=== PATIENT | female | born 1955 | race Caucasian/White ===

== ENCOUNTER → 2017-02-03 | Outpatient (CLI) | payer MEDICARE, OTHER ==
[~2017-02-03] MED LIST: ADDERALL; ALPR.25T; ALPR2TAB2 PO; AMPH30CA PO; AMPH30TA2 PO; ANTI-DEPRESSANT; AREDS PO; ASEN10TA9 SL; BIMA2.5D4 OP; BIOT1POW3; CALC-220 PO; CELE200C PO; CHRO1000 PO; CHRO1TAB8 PO; CITA20TA4 PO; CITA40TA19 PO; CLCX200C PO; CLIN-81 PO; CRB200T PO; DEXTROAMPHETAMINE PO; DIET25TA57 PO; DOXY100C42 PO; DOXY50CA2 PO; FOLI0.4T2 PO; GFN600TCR; GINK120C PO; GLUC1000 PO; GUANFACINE PO; LAMO100T65 PO; LEVO125T6 PO; LURA20TA PO; LURA40TA PO; LVT.05T PO; MELA1TAB16 PO; MELA1TAB20 PO; METO25TA PO; METR55GE TP; MTP25TSR PO; NATURE THROID PO; NF-CYM60C PO; NF-TYLARTH PO; NFBIOT1000 PO; NFTRIAZ.25; OMEG-11 PO; OXCA300T PO; OXYC-12 PO; OXYCARBAZEPINE PO; PALI6TAB; PROP10TA8 PO; SODI88SP5 NS; SPIR100T PO; SPIR25TA3 PO; TEMA30CA PO; TIMOLOL; TML25OP25 OP; TML5OP2.5 OU; TOPI100T2 PO; TOPI200T2 PO; TRAM50TA2 PO; TRIA0.253 PO; VILA1TAB PO; ZPR80C PO; [UNRECOGNIZED DRUG - CODE] PO; [UNRECOGNIZED DRUG - OTHER] PO; [UNRECOGNIZED DRUG - OTHER] PO
--- NOTE | 2017-02-03 16:20 | Diagnostic Imaging Report ---
EXAMINATION: Three views of the lumbar spine. INDICATION: Back pain. FINDINGS: There is a mild right convexity scoliosis of the lumbar spine. The alignment of the posterior spinal line is satisfactory. There is vertebral body height loss of [id number] degree at L3-L4 and L5-S1 levels. Multilevel small anterior osteophytes are noted. Degenerative sclerotic changes are suggested in the lower facet joints as well. There are degenerative sclerotic changes also at the SI joints. There is a 1.3 cm calcification seen in the left flank which could be in the left renal pelvis. IMPRESSION: 1. Mild right convexity scoliosis and disc and facet degenerative changes seen in the lumbar spine. 2. A 1.3 cm left flank calcification could be in the left renal pelvis. Correlate clinically and with kidney stone protocol CT. Dictated by: Dictated on workstation # [id number]
--- NOTE | 2017-02-03 19:33 | Diagnostic Imaging Report ---
EXAMINATION: Three views of the thoracic spine. INDICATION: Back pain. FINDINGS: The alignment at the posterior spinal line is satisfactory. Multilevel anterior osteophytes are seen. The disc heights are preserved. No compression fracture is seen. The paraspinal soft tissues appear unremarkable. IMPRESSION: Multilevel anterior osteophytes in the thoracic spine seen. Dictated by: Dictated on workstation # [id number]
== END ==
LOC: RAD 15:38
PROVIDERS: ATTEND Nurse Practitioner Family
DX: M25.78 Osteophyte, vertebrae (principal); M54.6 Pain in thoracic spine; M54.5 Low back pain; G89.29 Other chronic pain
CPT/HCPCS: 72072; 72100

== ENCOUNTER → 2017-05-24 | Outpatient (CLI) | payer MEDICARE, OTHER ==
--- NOTE | 2017-05-24 12:50 | Diagnostic Imaging Report ---
EXAMINATION: Right lower extremity duplex venous ultrasound. TECHNIQUE: DVT protocol. Multiple sonographic images with color Doppler and waveform interrogation were performed of the right lower extremity veins with compression and augmentation maneuvers. INDICATION: Right leg pain. FINDINGS: The right lower extremity veins from the groin to below the knee veins were examined with normal color-flow, compressibility and normal waveform demonstrated. The great saphenous vein is patent. IMPRESSION: No evidence of DVT in the right lower extremity. Dictated by: Dictated on workstation # [id number]
== END ==
LOC: RAD 12:20
PROVIDERS: ATTEND Nurse Practitioner Family
DX: M79.661 Pain in right lower leg (principal)

== ENCOUNTER → 2017-06-01 | Outpatient (CLI) | payer MEDICARE, OTHER ==
--- NOTE | 2017-06-01 19:13 | Diagnostic Imaging Report ---
Three views of the right foot. INDICATION: Fall. FINDINGS: There is no fracture, dislocation or radiopaque foreign body. There is satisfactory alignment of the lumbar spine. Prominent degenerative changes around the tarsal bones and tarsal metatarsal joints is seen. No radiopaque foreign body is noted. IMPRESSION: Degenerative changes. No fracture seen. Dictated by: Dictated on workstation # [id number]
--- NOTE | 2017-06-01 19:18 | Diagnostic Imaging Report ---
Three views of the right ankle. INDICATION: Fall. FINDINGS: No fracture, dislocation or radiopaque foreign body. Ankle mortise is normal in configuration. There are from prominent calcaneal spurs and spurs projecting dorsally from the tarsal bones seen. IMPRESSION: No fracture seen. Dictated by: Dictated on workstation # [id number]
== END ==
LOC: RAD 16:32
PROVIDERS: ATTEND Nurse Practitioner Family
DX: M19.071 Primary osteoarthritis, right ankle and foot (principal)
CPT/HCPCS: 73610; 73630

== ENCOUNTER → 2017-07-05 | Outpatient (CLI) | payer MEDICARE ==
--- NOTE | 2017-07-05 17:18 | Diagnostic Imaging Report ---
PROCEDURE: MRI right joint lower extremity without contrast. TECHNIQUE: Multiplanar, multisequence non contrast-enhanced MRI of the right lower extremity was accomplished. INDICATION: Right knee pain. FINDINGS: Please note that there are limitations to this exam due to the large patient body habitus and the dedicated knee coil was not used. There is significant marrow edema seen within the tibial plateau medially and laterally and within the femoral condyles more on the medial aspect. There is also bone marrow edema within the proximal fibula. A depression seen within the lateral tibial plateau laterally. This is uncertain if it represents a subacute fracture or potentially an old fracture with superimposed marrow edema from degenerative changes. Plain radiographs and CT scan would be helpful. There is significant subchondral component of the edema and the tibial plateau particularly medially which is suggestive of degenerative etiology. Near complete loss of cartilage in the medial compartment and significant thinning of the cartilage in the lateral compartment is seen. There is a small joint effusion. There is edema anterior to the proximal aspect of the patellar tendon which demonstrates thickening and increased signal suggestive of tendinosis. There is also suggestion of tendinosis in the distal quadriceps tendon is seen. There is a poor definition of the ACL suggestive of an ACL tear. It is difficult to determine if this is acute or chronic based on this exam in part due to the poor resolution of the imaging. There is a complex tear involving the posterior horn of the medial meniscus and suggestion of extrusion of the medial meniscus as well. The lateral meniscus demonstrates increased signal probably degenerative with no obvious tear. The lateral collateral ligament complex appears grossly intact. The MCL demonstrates edema around it suggestive of a sprain. There is a ganglion cyst or a parameniscal cyst seen deep to the anterior aspect of the MCL distally measuring 2 x 1.5 x 2.3 cm craniocaudally. There is no Hudson's cyst. IMPRESSION: 1. There is significant marrow edema in the tibial plateaus and femoral condyles more laterally. Although certainly there is a degenerative edema component, superimposed bone contusions is possible. 2. There is also deformity with depression of the articular surface in the tibial plateau suggested laterally compatible with age indeterminate depressed fracture of the tibial plateau. Correlate with radiographs and CT scan of the right knee as needed. 3. Advanced osteoarthritis changes with near complete loss of cartilage in the medial compartment. 4. Complex tear involving the posterior horn of the medial meniscus. 5. MCL low-grade sprain. 6. Septated ganglion cyst or parameniscal cyst is noted deep to the anterior distal fibers of the MCL. Results faxed to James Fontana APRN at 5:18 p.m. 07/05/2017/cb Dictated by: Dictated on workstation # [id number]
== END ==
LOC: RAD 15:10
PROVIDERS: ATTEND Nurse Practitioner Family
DX: S83.231A Complex tear of medial meniscus, current injury, right knee, initial encounter (principal); S83.411A Sprain of medial collateral ligament of right knee, initial encounter; M67.461 Ganglion, right knee; M17.11 Unilateral primary osteoarthritis, right knee; R60.0 Localized edema
CPT/HCPCS: 73721

== ENCOUNTER → 2017-09-20 | Outpatient (CLI) | payer MEDICARE ==
[~2017-09-20] MED LIST changes: +GADOBUTROL 15 MMOL/15 ML (GADAVIST) VIAL IV ONE
--- NOTE | 2017-09-20 15:00 | Diagnostic Imaging Report ---
PROCEDURE: MR imaging of the brain with and without contrast. TECHNIQUE: Multiplanar, multisequence MR imaging of the brain was performed with and without contrast. INDICATION: Tremors. Dizziness. COMPARISON: None. FINDINGS: Minimal nonspecific T2 hyperintensities in the supratentorial white matter. No other abnormal intracranial signal, enhancement, restricted water diffusion or hemosiderin deposition. Mild generalized cerebral and cerebellar parenchymal volume loss is age appropriate. Postoperative changes in the globes. Incidental partially empty sella. Normal morphology of the major midline structures, posterior fossa and cerebellar pontine angle. Normal intracranial flow voids. No hydrocephalus or extra-axial fluid collections. The paranasal sinuses and mastoids are clear. Normal bone marrow signal. IMPRESSION: Age-appropriate MRI of the brain. No acute intracranial MRI findings. Dictated by: Dictated on workstation # [id number]
== END ==
LOC: RAD 12:35
DX: M62.81 Muscle weakness (generalized) (principal); R25.1 Tremor, unspecified; R42 Dizziness and giddiness
CPT/HCPCS: 70553

== ENCOUNTER → 2017-10-04 | Outpatient (CLI) | payer MEDICARE ==
[~2017-10-04] MED LIST changes: -GADOBUTROL 15 MMOL/15 ML (GADAVIST) VIAL IV ONE
--- NOTE | 2017-10-04 15:26 | Diagnostic Imaging Report ---
INDICATION: Chronic neck pain. TIME OF EXAM: 02:52 p.m. FINDINGS: Three views of the cervical spine were obtained. Curvature and alignment is normal. There is a small ununited osteophyte anteriorly at the C5-C6 level. Disc spaces are fairly well maintained. The prevertebral tissues are within normal limits. The odontoid is intact. IMPRESSION: No acute bony abnormality is detected. Dictated by: Dictated on workstation # [id number]
--- NOTE | 2017-10-04 15:45 | Diagnostic Imaging Report ---
INDICATION: Kyphosis. TIME OF EXAMINATION: 3:13 PM. TECHNIQUE: AP views of the thoracic and lumbar spine were performed. FINDINGS: There appears to be very slight left convexity scoliotic curvature of the thoracic spine. There is very slight right convexity lumbar scoliotic curvature. No vertebral body anomaly is identified. There is significant degenerative disc disease in the lower thoracic spine as well as the lower lumbar spine. The vertebral body heights appear maintained. The pedicles are unremarkable. The paraspinous line is unremarkable. There are calcific densities noted in the right and left abdomen. These do overlie the renal shadows and may represent renal calculi. The left calculus appears similar to prior radiographs from 02/03/2017. This may be located in the left renal pelvis. A calcific density on the right overlies the mid right kidney. IMPRESSION: 1. Thoracolumbar scoliosis and spondylosis. No acute bony abnormality is detected. 2. Probable bilateral renal calculi. Dictated by: Dictated on workstation # [id number]
== END ==
LOC: RAD 13:52
DX: M47.815 Spondylosis without myelopathy or radiculopathy, thoracolumbar region (principal); M41.85 Other forms of scoliosis, thoracolumbar region; N20.0 Calculus of kidney
CPT/HCPCS: 72040; 72081

== ENCOUNTER 2017-12-22 14:00 | Outpatient (CLI) | payer MEDICARE ==
[~2017-12-22] VITALS: Ht 165.1 cm; Wt 122.0 kg
[2017-12-22] MEDS ORDERED: NALT1TAB PO (14:44)
[2017-12-22] MEDS ORDERED: OXCA300T PO (14:44)
[2017-12-22] MEDS ORDERED: ALPR1TAB7 PO (14:44)
[2017-12-22] MEDS ORDERED: DORZ10DR8 OU (14:44)
[2017-12-22] MEDS ORDERED: AMPH30TA2 PO ×2 (14:44→14:47)
[2017-12-22] MEDS ORDERED: TRAZ150T72 PO (14:44)
[2017-12-22] MEDS ORDERED: CITA40TA19 PO (14:44)
[2017-12-22] MEDS ORDERED: CHOL500049 PO (14:47)
[2017-12-22] MEDS ORDERED: NAPR-915 PO (14:47)
[2017-12-22] MEDS ORDERED: LATA2.5D19 OU (14:47)
[2017-12-22] MEDS ORDERED: NF-LAMO200 PO (14:47)
[2017-12-22] MEDS ORDERED: PROP80CA4 PO (14:47)
[2017-12-22] MEDS ORDERED: SIMV20TA PO (14:47)
== END 2017-12-22 14:48 ==
LOC: PREOP 14:00
PROVIDERS: ATTEND Surgery
DX: Z01.818 Encounter for other preprocedural examination (principal); R19.5 Other fecal abnormalities; R19.7 Diarrhea, unspecified

== ENCOUNTER 2017-12-28 10:04 | Day surgery (SDC) | payer MEDICARE ==
[~2017-12-28] VITALS: Ht 165.1 cm; Wt 122.0 kg
[~2017-12-28 10:04] MED LIST changes: +ALPR1TAB7 PO; +CHOL500049 PO; +DORZ10DR8 OU; +LATA2.5D19 OU; +NALT1TAB PO; +NAPR-915 PO; +NF-LAMO200 PO; +PROP80CA4 PO; +SIMV20TA PO; +TRAZ150T72 PO
--- OUTSIDE RECORDS SUMMARY | 2017-12-28 10:08 | XMS REPORT ---
Author Author GRADY RODAS [facility] Address [address] [place] [address] Care Team Providers Care Easement Man Name Role Phone GRADY RODAS Unavailable PROBLEMS Type Condition ICD9-CM Code [id number] Code Onset Dates Condition Status SNOMED Code Problem Morbid obesity due to excess calories E66.01 Active 548950778 ALLERGIES No Known Allergies SOCIAL HISTORY Never Assessed PLAN OF CARE Activity Details Follow Up 4 Weeks Reason:morbid obesity VITAL SIGNS Height 66 in 2016-11-15 Weight 292.8 lbs 2016-11-15 Temperature 97.5 degrees Fahrenheit 2016-11-15 Heart Rate 72 bpm 2016-11-15 Respiratory Rate 18 2016-11-15 BMI 47.25 kg/m2 2016-11-15 Blood pressure systolic 142 mmHg 2016-11-15 Blood pressure diastolic 98 mmHg 2016-11-15 MEDICATIONS Medication Instructions Dosage Frequency Start Date End Date Duration Status Adderall 30 MG Orally twice a day 2 tablet in the morning and 1 at noon 12h Active Trazodone HCl 150 MG Orally 2 times a day 1 tablet at bedtime as needed 12h Active ICaps - Orally Once a day 2 capsules 24h Active Melatonin 10 mg Orally Once a day 1 capsule at bedtime as needed with food 24h Active Metrogel 1 % Externally Twice a day 1 application to affected area 12h Active Naproxen 500 MG Orally every 12 hrs 1 tablet as needed 12h Active Xanax 1 MG Orally Twice a day 1 tablet 12h Active Trileptal 150 MG Orally Once a day 1 tablet 24h Active Saphris 5 MG Sublingual Twice a day 1 tablet under the tongue and allow to dissolve 12h Active Timolol 0.5 % Ophthalmic 2 times a day 2 drops into affected eye 12h Active Biotin 1000 MCG Orally 3 times a day 1 tablet 8h Active Contrave 8-90 MG Orally Twice a day 1 tablet daily at bedtime X 7 days, 1 tab twice a day X 7 days, 1 in AM and 2 in PM X 7 days 2 tabs 12h 17 Oct, 2016 November, 30 day(s) Active Lamotrigine 200 mg Orally Once a day 1 tablet 24h Active Aspir-81 81 MG Orally Once a day 1 tablet 24h Active Inderal LA 80 MG Orally Once a day 1 capsule 24h Active Doxycycline Hyclate 100 mg Orally Once a day 1 capsule 24h Active Citalopram Hydrobromide 40 mg Orally Once a day 1 tablet 24h Active RESULTS No Results PROCEDURES Procedure Date Ordered Result Body Site [facility] VISIT ESTABLISHED PATIENT November 15, 2016 IMMUNIZATIONS No Known Immunizations MEDICAL (GENERAL) HISTORY Type Description Date Medical History bipolar disorder Medical History hypertension Medical History glaucoma Medical History rosacea Medical History depression Medical History anxiety Surgical History hysterectomy, total with bilateral salpingo-oophorectomy (BSO ) Surgical History tonsillectomy Surgical History left knee replacement Hospitalization History Panic Attacks x3
--- OUTSIDE RECORDS SUMMARY | 2017-12-28 10:08 | XMS REPORT ---
Author Author BAILEY BRUCE Organization [facility] Address [address] [place] [address] Care Team Providers Care Salesforce Specialist Name Role Phone BAILEY BRUCE Unavailable PROBLEMS Type Condition ICD9-CM Code [id number] Code Onset Dates Condition Status SNOMED Code Problem Morbid obesity due to excess calories E66.01 Active 879758956 ALLERGIES No Known Allergies SOCIAL HISTORY Never Assessed PLAN OF CARE VITAL SIGNS MEDICATIONS Medication Instructions Dosage Frequency Start Date End Date Duration Status Naproxen 500 MG Orally every 12 hrs 1 tablet as needed 12h Active ICaps - Orally Once a day 2 capsules 24h Active Xanax 1 MG Orally 3 times a day 1 tablet 8h Active Inderal LA 80 MG Orally Once a day 1 capsule 24h Active Aspir-81 81 MG Orally Once a day 1 tablet 24h Active Citalopram Hydrobromide 40 mg Orally Once a day 1 tablet 24h Active Trazodone HCl 150 MG Orally Once a day 2 tablets at bedtime as needed 24h Active Contrave 8-90 MG Orally Twice a day 1 tablet daily at bedtime X 7 days, 1 tab twice a day X 7 days, 1 in AM and 2 in PM X 7 days 2 tabs 12h Oct, November, 30 day(s) Active Melatonin 10 mg Orally Once a day 1 capsule at bedtime as needed with food 24h Active [place] 3 1000 MG Orally Once a day 1 capsule 24h Active Biotin 5000 MCG Orally Once a day 1 tablet 24h Active Ginkgo Biloba 60 mg Orally Once a day 2 capsules 24h Active Timolol 0.5 % Ophthalmic 2 times a day 2 drops into affected eye 12h Active Co Q-10 Maximum Strength 400 MG Orally Once a day 1 capsule with a meal 24h Active Calcium 1200+D3 1 tablet 12h Active Metrogel 1 % Externally Twice a day 1 application to affected area 12h Active Vitamin B12 1000 MCG Orally Once a day 3 tablets 24h Active Saphris 5 MG Sublingual Twice a day 1 tablet under the tongue and allow to dissolve 12h Active Trileptal 150 MG Orally Once a day 1 tablet 24h Active Zinc 50 mg Orally Once a day 2 tablets 24h Active Adderall 30 MG Orally twice a day 2 tablet in the morning and 1 at noon 12h Active Lamotrigine 200 mg Orally Once a day 1 tablet 24h Active Doxycycline Hyclate 100 mg Orally Once a day 1 capsule 24h Active Probiotic - Active RESULTS No Results PROCEDURES No Known procedures IMMUNIZATIONS No Known Immunizations MEDICAL (GENERAL) HISTORY Type Description Date Medical History bipolar disorder Medical History hypertension Medical History glaucoma Medical History rosacea Medical History depression Medical History anxiety Surgical History hysterectomy, total with bilateral salpingo-oophorectomy (BSO ) Surgical History tonsillectomy Surgical History left knee replacement Hospitalization History Panic Attacks x3
--- OUTSIDE RECORDS SUMMARY | 2017-12-28 10:09 | XMS REPORT | Continuity of Care Document ---
Author Author Formerly [facility], [facility] Address Unknown Phone Unavailable Allergies Active Description Code Type Severity Reaction Onset Reported/Identified Relationship to Patient Clinical Status Yes MERCURY MERCURY Mild N/A 08/24/2010 Medications There is no data. Problems Date Dx Coded Attending Type Code Diagnosis Diagnosed By 03/11/2008 ROBBY HERNANDEZ DO K 241.0 Thyroid Nodule 03/11/2008 ROBBY HERNANDEZ DO K 382.00 Otitis Media Acute Without Spontaneous Rupture Eardrum 03/11/2008 ADRIANNA ORGAN TUNER ELECTRONIC, GRADY S 241.0 Thyroid Nodule 03/11/2008 ADRIANNA ORGAN TUNER ELECTRONIC, GRADY S 382.00 Otitis Media Acute Without Spontaneous Rupture Eardrum 03/11/2008 ADRIANNA ORGAN TUNER ELECTRONIC, GRADY S 241.0 Thyroid Nodule 03/11/2008 ADRIANNA ORGAN TUNER ELECTRONIC, GRADY S 382.00 Otitis Media Acute Without Spontaneous Rupture Eardrum 03/11/2008 ADRIANNA ORGAN TUNER ELECTRONIC, GRADY S 241.0 Thyroid Nodule 03/11/2008 ADRIANNA ORGAN TUNER ELECTRONIC, GRADY S 382.00 Otitis Media Acute Without Spontaneous Rupture Eardrum 03/15/2008 ROBBY HERNANDEZ DO 626.8 Other Disorders Of Menstruation And Other Abnormal Bleeding From Female Genital Tract 03/15/2008 ADRIANNA GARDNER GRADY S 626.8 Other Disorders Of Menstruation And Other Abnormal Bleeding From Female Genital Tract 03/15/2008 ADRIANNA GARDNER GRADY S 626.8 Other Disorders Of Menstruation And Other Abnormal Bleeding From Female Genital Tract 03/15/2008 ADRIANNA GARDNER GRADY S 626.8 Other Disorders Of Menstruation And Other Abnormal Bleeding From Female Genital Tract 02/03/2009 ROBBY HERNANDEZ DO 705.1 Prickly Heat 02/03/2009 ROBBY HERNANDEZ DO 719.46 Pain In Joint Involving Lower Leg 02/03/2009 ROBBY HERNANDEZ DO 796.2 Elevated Blood Pressure Reading Without Diagnosis Of Hypertension 02/03/2009 ADRIANNA ORGAN TUNER ELECTRONIC, GRADY S 705.1 Prickly Heat 02/03/2009 ADRIANNA ORGAN TUNER ELECTRONIC, GRADY S 719.46 Pain In Joint Involving Lower Leg 02/03/2009 ADRIANNA ORGAN TUNER ELECTRONIC, GRADY S 796.2 Elevated Blood Pressure Reading Without Diagnosis Of Hypertension 02/03/2009 ADRIANNA ORGAN TUNER ELECTRONIC, GRADY S 705.1 Prickly Heat 02/03/2009 ARDIANNA ORGAN TUNER ELECTRONIC, GRADY S 719.46 Pain In Joint Involving Lower Leg 02/03/2009 ADRIANNA ORGAN TUNER ELECTRONIC, GRADY S 796.2 Elevated Blood Pressure Reading Without Diagnosis Of Hypertension 02/03/2009 ADRIANNA ORGAN TUNER ELECTRONIC, GRADY S 705.1 Prickly Heat 02/03/2009 ADRIANNA ORGAN TUNER ELECTRONIC, GRADY S 719.46 Pain In Joint Involving Lower Leg 02/03/2009 ADRIANNA ORGAN TUNER ELECTRONIC, GRADY S 796.2 Elevated Blood Pressure Reading Without Diagnosis Of Hypertension 02/05/2009 HERNANDEZ DO, ROBBY K 401.9 Hypertension, Unspecified Essential 02/05/2009 ADRIANNA ORGAN TUNER ELECTRONIC, GRADY S 401.9 Hypertension, Unspecified Essential 02/05/2009 ADRIANNA ORGAN TUNER ELECTRONIC, GRADY S 401.9 Hypertension, Unspecified Essential 02/05/2009 ADRIANNA ORGAN TUNER ELECTRONIC, GRADY S 401.9 Hypertension, Unspecified Essential 03/03/2009 HERNANDEZ DO, ROBBY K 401.1 BENIGN ESSENTIAL HYPERTENSION 03/03/2009 HERNANDEZ DO, ROBBY K 782.1 Rash And Other Nonspecific Skin Eruption 03/03/2009 ADRIANNA ORGAN TUNER ELECTRONIC, GRADY S 401.1 BENIGN ESSENTIAL HYPERTENSION 03/03/2009 ADRIANNA ORGAN TUNER ELECTRONIC, GRADY S 782.1 Rash And Other Nonspecific Skin Eruption 03/03/2009 ADRIANNA ORGAN TUNER ELECTRONIC, GRADY S 401.1 BENIGN ESSENTIAL HYPERTENSION 03/03/2009 ADRIANNA ORGAN TUNER ELECTRONIC, GRADY S 782.1 Rash And Other Nonspecific Skin Eruption 03/03/2009 ADRIANNA ORGAN TUNER ELECTRONIC, GRADY S 401.1 BENIGN ESSENTIAL HYPERTENSION 03/03/2009 ADRIANNA ORGAN TUNER ELECTRONIC, GRADY S 782.1 Rash And Other Nonspecific Skin Eruption 04/01/2009 HERNANDEZ DO, ROBBY K 715.16 OSTEOARTHROSIS LOCALIZED PRIMARY INVOLVING LOWER LEG 04/01/2009 ADRIANNA ORGAN TUNER ELECTRONIC, GRADY S 715.16 OSTEOARTHROSIS LOCALIZED PRIMARY INVOLVING LOWER LEG 04/01/2009 ADRIANNA ORGAN TUNER ELECTRONIC, GRADY S 715.16 OSTEOARTHROSIS LOCALIZED PRIMARY INVOLVING LOWER LEG 04/01/2009 ADRIANNA ORGAN TUNER ELECTRONIC, GRADY S 715.16 OSTEOARTHROSIS LOCALIZED PRIMARY INVOLVING LOWER LEG 06/24/2009 HERNANDEZ DO, ROBBY K 695.3 ROSACEA 06/24/2009 HERNANDEZ DO, ROBBY K 704.00 Alopecia, Unspecified 06/24/2009 ADRIANNA ORGAN TUNER ELECTRONIC, GRADY S 695.3 ROSACEA 06/24/2009 ADRIANNA ORGAN TUNER ELECTRONIC, GRADY S 704.00 Alopecia, Unspecified 06/24/2009 ADRIANNA ORGAN TUNER ELECTRONIC, GRADY S 695.3 ROSACEA 06/24/2009 ADRIANNA ORGAN TUNER ELECTRONIC, GRADY S 704.00 Alopecia, Unspecified 06/24/2009 ADRIANNA ORGAN TUNER ELECTRONIC, GRADY S 695.3 ROSACEA 06/24/2009 ADRIANNA ORGAN TUNER ELECTRONIC, GRADY S 704.00 Alopecia, Unspecified 08/04/2009 DAVID ALCALA ROBBY K 724.3 Neuritis Sciatic 08/04/2009 ADRIANNA ORGAN TUNER ELECTRONIC, GRADY S 724.3 Neuritis Sciatic 08/04/2009 ADRIANNA ORGAN TUNER ELECTRONIC, GRADY S 724.3 Neuritis Sciatic 08/04/2009 ADRIANNA ORGAN TUNER ELECTRONIC, GRADY S 724.3 Neuritis Sciatic 11/03/2009 DAVID ALCALA ROBBY K 278.01 Obesity Morbid Bmi >40 11/03/2009 ADRIANNA ORGAN TUNER ELECTRONIC, GRADY S 278.01 Obesity Morbid Bmi >40 11/03/2009 ADRIANNA ORGAN TUNER ELECTRONIC, GRADY S 278.01 Obesity Morbid Bmi >40 11/03/2009 ADRIANNA ORGAN TUNER ELECTRONIC, GRADY S 278.01 Obesity Morbid Bmi >40 11/06/2009 DAVID ALCALA ROBBY K NODX No Diagnosis 11/06/2009 ADRIANNA ORGAN TUNER ELECTRONIC, GRADY S NODX No Diagnosis 11/06/2009 ADRIANNA ORGAN TUNER ELECTRONIC GRADY S NODX No Diagnosis 11/06/2009 ADRIANNA ORGAN TUNER ELECTRONIC, GRADY S NODX No Diagnosis 11/25/2009 ROHITH HERNANDEZ DOA K 599.0 Urinary Tract Infection, Site Not Specified 11/25/2009 ADRIANNA ORGAN TUNER ELECTRONIC, GRADY S 599.0 Urinary Tract Infection, Site Not Specified 11/25/2009 ADRIANNA ORGAN TUNER ELECTRONIC, GRADY S 599.0 Urinary Tract Infection, Site Not Specified 11/25/2009 ADRIANNA ORGAN TUNER ELECTRONIC, GRADY S 599.0 Urinary Tract Infection, Site Not Specified 12/09/2009 HERNANDEZ DO ROBBY K 244.9 HYPOTHYROIDISM 12/09/2009 HERNANDEZ DO, ROBBY K 788.1 Pain During Urination (dysuria) 12/09/2009 ADRIANNA ORGAN TUNER ELECTRONIC, GRADY S 244.9 HYPOTHYROIDISM 12/09/2009 ADRIANNA ORGAN TUNER ELECTRONIC, GRADY S 788.1 Pain During Urination (dysuria) 12/09/2009 ADRIANNA ORGAN TUNER ELECTRONIC, GRADY S 244.9 HYPOTHYROIDISM 12/09/2009 ADRIANNA ORGAN TUNER ELECTRONIC, GRADY S 788.1 Pain During Urination (dysuria) 12/09/2009 ADRIANNA ORGAN TUNER ELECTRONIC, GRADY S 244.9 HYPOTHYROIDISM 12/09/2009 ADRIANNA ORGAN TUNER ELECTRONIC, GRADY S 788.1 Pain During Urination (dysuria) 12/24/2009 ROHITH HERNANDEZ DOA K 616.10 Vaginitis 12/24/2009 ADRIANNA ORGAN TUNER ELECTRONIC, GRADY S 616.10 Vaginitis 12/24/2009 ADRIANNA ORGAN TUNER ELECTRONIC, GRADY S 616.10 Vaginitis 12/24/2009 ADRIANNA ORGAN TUNER ELECTRONIC, GRADY S 616.10 Vaginitis 02/25/2010 ROHITH HERNANDEZ DOA K 692.9 Contact Dermatitis And Other Eczema, Unspecified Cause 02/25/2010 ADRIANNA ORGAN TUNER ELECTRONIC, GRADY S 692.9 Contact Dermatitis And Other Eczema, Unspecified Cause 02/25/2010 ADRIANNA ORGAN TUNER ELECTRONIC GRADY S 692.9 Contact Dermatitis And Other Eczema, Unspecified Cause 02/25/2010 ADRIANNA ORGAN TUNER ELECTRONIC, GRADY S 692.9 Contact Dermatitis And Other Eczema, Unspecified Cause 04/16/2010 ROBBY HERNANDEZ DO K 564.1 IRRITABLE BOWEL SYNDROME 04/16/2010 TANA RODAS APRNA S 564.1 IRRITABLE BOWEL SYNDROME 04/16/2010 TANA RODAS APRNA S 564.1 IRRITABLE BOWEL SYNDROME 04/16/2010 YVETTE RODAS APRNNDA S 564.1 IRRITABLE BOWEL SYNDROME 07/22/2010 Ot 300.00 08/06/2010 HERNANDEZ DO, ROBBY K 112.0 Candidiasis Of Mouth 08/06/2010 HERNANDEZ DO, ROBBY K 112.3 Candidiasis Of Skin And Nails 08/06/2010 HERNANDEZ DO, ROBBY K 924.9 Bruise/contusion Unspecified Site 08/06/2010 YVETTE RODAS APRNNDA S 112.0 Candidiasis Of Mouth 08/06/2010 YVETTE RODAS APRNNDA S 112.3 Candidiasis Of Skin And Nails 08/06/2010 YVETTE RODAS APRNNDA S 924.9 Bruise/contusion Unspecified Site 08/06/2010 TANA RODAS APRNA S 112.0 Candidiasis Of Mouth 08/06/2010 YVETTE RODAS APRNNDA S 112.3 Candidiasis Of Skin And Nails 08/06/2010 YVETTE RODAS APRNNDA S 924.9 Bruise/contusion Unspecified Site 08/06/2010 YVETTE RODAS APRNNDA S 112.0 Candidiasis Of Mouth 08/06/2010 YVETTE RODAS APRNNDA S 112.3 Candidiasis Of Skin And Nails 08/06/2010 YVETTE RODAS APRNNDA S 924.9 Bruise/contusion Unspecified Site 08/24/2010 Ot 558.9 08/24/2010 Ot 564.1 02/05/2011 Ot 244.9 02/05/2011 Ot 278.00 02/05/2011 Ot 296.80 02/05/2011 Ot 518.89 02/05/2011 Ot 786.59 02/05/2011 Ot V58.69 03/15/2011 HERNANDEZ DO ROBBY K 309.0 ADJUSTMENT DISORDER WITH DEPRESSED MOOD 03/15/2011 TANA RODAS APRNA S 309.0 ADJUSTMENT DISORDER WITH DEPRESSED MOOD 03/15/2011 TANA RODAS APRNA S 309.0 ADJUSTMENT DISORDER WITH DEPRESSED MOOD 03/15/2011 ADRIANNA ORGAN TUNER ELECTRONIC, GRADY S 309.0 ADJUSTMENT DISORDER WITH DEPRESSED MOOD 06/08/2011 ROBBY HERNANDEZ DO K 110.1 ONYCHOMYCOSIS 06/08/2011 ROBBY HERNANDEZ DO K V04.81 FLU DX (MEDICARE ONLY) 06/08/2011 ADRIANNA GARDNER GRADY S 110.1 ONYCHOMYCOSIS 06/08/2011 ADRIANNA ORGAN TUNER ELECTRONIC, GRADY S V04.81 FLU DX (MEDICARE ONLY) 06/08/2011 ADRIANNAYAKELIN GARDNER GRADY S 110.1 ONYCHOMYCOSIS 06/08/2011 ADRIANNA ORGAN TUNER ELECTRONIC, GRADY S V04.81 FLU DX (MEDICARE ONLY) 06/08/2011 ADRIANNAYAKELIN GARDNER GRADY S 110.1 ONYCHOMYCOSIS 06/08/2011 ADRIANNA ORGAN TUNER ELECTRONIC, GRADY S V04.81 FLU DX (MEDICARE ONLY) 01/06/2012 ROBBY HERNANDEZ DO K 719.45 PAIN IN JOINT INVOLVING PELVIC REGION AND THIGH 01/06/2012 ADRIANNA GARDNER GRADY S 719.45 PAIN IN JOINT INVOLVING PELVIC REGION AND THIGH 01/06/2012 ADRIANNA GARDNER GRADY S 719.45 PAIN IN JOINT INVOLVING PELVIC REGION AND THIGH 01/06/2012 ADRIANNAYAKELIN GARDNER, GRADY S 719.45 PAIN IN JOINT INVOLVING PELVIC REGION AND THIGH 03/30/2012 ROBBY HERNANDEZ DO K 726.5 ENTHESOPATHY OF HIP REGION 03/30/2012 ADRIANNA GARDNER GRADY S 726.5 ENTHESOPATHY OF HIP REGION 03/30/2012 YVETTE RODAS APRNNDA S 726.5 ENTHESOPATHY OF HIP REGION 03/30/2012 ADRIANNA GARDNER GRADY S 726.5 ENTHESOPATHY OF HIP REGION 06/19/2013 ZAHIDA ELENA, KARINA Boyce Ot 296.80 BIPOLAR DISORDER, UNSPECIFIED 06/19/2013 KARINA TEAGUE MD Ot 300.00 ANXIETY STATE NOS 06/19/2013 KARINA TEAGUE MD Ot 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 06/19/2013 KARINA TEAGUE MD Ot 397.0 TRICUSPID VALVE DISEASE 06/19/2013 KARINA TEAGUE MD Ot 564.1 IRRITABLE BOWEL SYNDROME 06/19/2013 KARINA TEAGUE MD Ot 785.1 PALPITATIONS 06/19/2013 KARINA TEAGUE MD Ot 786.59 CHEST PAIN NEC 06/19/2013 KARINA TEAGUE MD Ot V58.69 OT MED,LT,CURRENT USE 09/23/2013 DEON GONZALES PATTERN CUTTER Ot 785.1 PALPITATIONS 11/30/2013 RVAI LOPEZ SEWING SUPERVISOR Ot 780.54 HYPERSOMNIA, UNSPECIFIED 11/30/2013 RAVI LOPEZ SEWING SUPERVISOR Ot 786.09 RESPIRATORY ABNORM NEC 03/14/2014 GRADY RODAS APRN S 719.46 PAIN- KNEE 03/14/2014 GRADY RODAS APRN S 719.46 PAIN- KNEE 05/09/2014 SERGIO RIGGS DO Ot 368.8 VISUAL DISTURBANCES NEC 05/09/2014 SERGIO RIGGS DO Ot 375.15 TEAR FILM INSUFFIC NOS 05/09/2014 SERGIO RIGGS DO Ot E946.5 ADV EFF EYE ANTI-INF/DRG 06/14/2014 OTTO BAEZ PATTERN CUTTER Ot 715.36 06/14/2014 VEL ELENA, GENE Cotter Ot V76.12 06/14/2014 Ot 244.9 06/14/2014 Ot 379.93 06/14/2014 Ot 473.9 06/14/2014 Ot 787.02 06/14/2014 Ot 789.01 06/14/2014 Ot V76.12 06/14/2014 Ot 244.9 06/14/2014 Ot 277.7 06/14/2014 Ot 790.29 06/14/2014 Ot V76.12 06/14/2014 Ot 780.2 06/14/2014 Ot 780.93 06/14/2014 Ot 611.71 06/14/2014 Ot V76.12 06/14/2014 HENRIQUE ELENA, DAMARIS Baptiste Ot 719.46 06/14/2014 FARZAD ELENA FACC, ALI FACP CCDS Ot 244.8 06/14/2014 FARZAD SHARMAC, ALI FACP CCDS Ot 278.00 06/14/2014 FARZAD ELENA FACC, ALI FACP CCDS Ot 296.7 06/14/2014 FARZAD SHARMAC, ALI FACP CCDS Ot 309.81 06/14/2014 FARZAD ELENA FACC, ALI FACP CCDS Ot 716.90 06/14/2014 FARZAD ELENA FACC, ALI FACP CCDS Ot 786.09 06/14/2014 FARZAD ELENA FACC, ALI FACP CCDS Ot 786.50 06/14/2014 FARZAD ELENA FACC, ALI FACP CCDS Ot V17.49 06/14/2014 FARZAD ELENA FACC, ALI FACP CCDS Ot 729.81 06/14/2014 FARZAD ELENA FACC, ALI FACP CCDS Ot 786.50 06/14/2014 RAVI LOPEZ SEWING SUPERVISOR Ot 784.2 06/14/2014 Ot 785.1 06/14/2014 Ot 244.9 06/14/2014 Ot 277.7 06/14/2014 Ot 790.29 06/14/2014 Ot V76.12 06/14/2014 Ot 780.2 06/14/2014 Ot 780.93 06/14/2014 Ot 611.71 06/14/2014 Ot V76.12 06/14/2014 HENRIQUE ELENA, DAMARIS Baptiste Ot 719.46 06/14/2014 FARZAD ELENA FACC, ALI FACP CCDS Ot 244.8 06/14/2014 FARZAD ELENA FACC, ALI FACP CCDS Ot 278.00 06/14/2014 FARZAD ELENA FACC, ALI FACP CCDS Ot 296.7 06/14/2014 FARZAD ELENA FACC, ALI FACP CCDS Ot 309.81 06/14/2014 FARZAD ELENA FACC, ALI FACP CCDS Ot 716.90 06/14/2014 FARZAD ELENA FACC, ALI FACP CCDS Ot 786.09 06/14/2014 FARZAD ELENA FACC, ALI FACP CCDS Ot 786.50 06/14/2014 FARZAD ELENA FACC, ALI FACP CCDS Ot V17.49 06/14/2014 FARZAD ELENA FACC, ALI FACP CCDS Ot 729.81 06/14/2014 FARZAD ELENA FACC, ALI FACP CCDS Ot 786.50 06/14/2014 RAVI LOPEZ SEWING SUPERVISOR Ot 784.2 06/14/2014 Ot 785.1 06/14/2014 GENE CROWDER MD Ot V76.12 06/14/2014 OTTO BAEZ PATTERN CUTTER Ot 715.36 07/15/2014 OTTO BAEZ PATTERN CUTTER Ot 715.36 07/15/2014 SANJAY BOLES MD Ot 153.6 07/15/2014 SANJAY BOLES MD Ot 728.3 07/15/2014 SANJAY BOLES MD Ot 780.79 07/15/2014 SANJAY BOLES MD Ot V57.1 07/15/2014 SANJAY BOLES MD Ot V57.21 07/15/2014 SANJAY BOLES MD Ot V72.63 07/15/2014 SANJAY BOLES MD Ot V74.8 07/20/2014 SANJAY BOLES MD Ot 244.9 HYPOTHYROIDISM NOS 07/20/2014 SANJAY BOLES MD Ot 278.00 OBESITY, NOS 07/20/2014 SANJAY BOLES MD Ot 285.1 AC POSTHEMORRHAG ANEMIA 07/20/2014 SANJAY BOLES MD Ot 296.80 BIPOLAR DISORDER, UNSPECIFIED 07/20/2014 SANJAY BOLES MD Ot 300.00 ANXIETY STATE NOS 07/20/2014 SANJAY BOLES MD Ot 311 07/20/2014 SANJAY BOLES MD Ot 314.01 ATTN DEFICIT W HYPERACT 07/20/2014 SANJAY BOLES MD Ot 365.9 GLAUCOMA NOS 07/20/2014 SANJAY BOLES MD Ot 401.9 HYPERTENSION NOS 07/20/2014 SANJAY BOLES MD Ot 715.36 LOC OSTEOARTH NOS-L/LEG 07/20/2014 SANJAY BOLES MD Ot 722.52 LUMB/LUMBOSAC DISC DEGEN 07/20/2014 SANJAY BOLES MD Ot 729.1 MYALGIA AND MYOSITIS NOS 07/20/2014 SANJAY BOLES MD Ot 782.3 EDEMA 07/20/2014 SANJAY BOLES MD Ot V13.29 PERSONAL HISTORY GENITAL SYSTEM/OBSTETRI 07/20/2014 SANJAY BOLES MD Ot V45.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 07/20/2014 SANJAY BOLES MD Ot V85.42 BODY MASS INDEX 45.0-49.9, ADULT 07/24/2014 NOEMY ELENA, STEVIE Cotter Ot 719.46 JOINT PAIN-L/LEG 07/24/2014 NOEMY ELENA, STEVIE A Ot 924.11 CONTUSION OF KNEE 07/24/2014 NOEMY ELENA, STEVIE Cotter Ot E000.8 OTHER EXTERNAL CAUSE STATUS 07/24/2014 NOEMY ELENA, STEVIE Cotter Ot E888.9 FALL NOS 07/24/2014 NOEMY ELENA, STEVIE Cotter Ot V43.65 KNEE JOINT REPLACEMENT STATUS 08/02/2014 PARVIN ELENA, MEL Frye Ot 278.01 MORBID OBESITY 08/02/2014 PARVIN ELENA, MEL Melva Ot 296.80 BIPOLAR DISORDER, UNSPECIFIED 08/02/2014 PARVIN ELENA MEL Melva Ot 300.00 ANXIETY STATE NOS 08/02/2014 MEL MELENDREZ MD Ot 401.9 HYPERTENSION NOS 08/02/2014 MEL MELENDREZ MD Ot 682.6 CELLULITIS OF LEG 08/02/2014 PARVIN ELENA MEL Melva Ot 780.52 INSOMNIA, UNSPECIFIED 08/02/2014 MEL MELENDREZ MD Ot V15.88 HISTORY OF FALL 08/02/2014 MEL MELENDREZ MD Ot V43.65 KNEE JOINT REPLACEMENT STATUS 08/02/2014 PARVIN ELENA, MEL Melva Ot V85.42 BODY MASS INDEX 45.0-49.9, ADULT 08/06/2014 SANJAY BOLES MD P Ot 153.6 08/06/2014 RAMANA ELENA, SANJAY P Ot 728.3 08/06/2014 RAMANA ELENA, SANJAY P Ot 780.79 08/06/2014 SANJAY BOLES MD P Ot V57.1 08/06/2014 RAMANA ELENA, SANJAY P Ot V57.21 08/06/2014 RAMANA ELENA SANJAY P Ot V72.63 08/06/2014 SANJAY BOLES MD P Ot V74.8 08/07/2014 OTTO BAEZ PATTERN CUTTER Ot 793.11 08/10/2014 SANJAY BOLES MD P Ot 244.9 HYPOTHYROIDISM NOS 08/10/2014 SANJAY BOLES MD P Ot 278.01 MORBID OBESITY 08/10/2014 SANJAY BOLES MD P Ot 285.9 ANEMIA NOS 08/10/2014 SANJAY BOLES MD Ot 296.80 BIPOLAR DISORDER, UNSPECIFIED 08/10/2014 SANJAY BOLES MD P Ot 300.00 ANXIETY STATE NOS 08/10/2014 SANJAY BOLES MD Ot 311 DEPRESSIVE DISORDER NEC 08/10/2014 SANJAY BOLES MD Ot 314.01 ATTN DEFICIT W HYPERACT 08/10/2014 SANJAY BOLES MD Ot 365.9 GLAUCOMA NOS 08/10/2014 SANJAY BOLES MD Ot 715.36 LOC OSTEOARTH NOS-L/LEG 08/10/2014 SANJAY BOLES MD Ot 729.1 MYALGIA AND MYOSITIS NOS 08/10/2014 SANJAY BOLES MD Ot 996.42 DISLOCATION OF PROSTHETIC JOINT 08/10/2014 SANJAY BOLES MD Ot E849.0 ACCIDENT IN HOME 08/10/2014 SANJAY BOLES MD Ot E888.9 FALL NOS 08/10/2014 SANJAY BOLES MD Ot V13.29 PERSONAL HISTORY GENITAL SYSTEM/OBSTETRI 08/10/2014 SANJAY BOLES MD Ot V43.65 KNEE JOINT REPLACEMENT STATUS 08/10/2014 SANJAY BOLES MD Ot V45.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 08/10/2014 SANJAY BOLES MD Ot V85.42 BODY MASS INDEX 45.0-49.9, ADULT 11/20/2014 SANJAY BOLES MD Ot 996.42 11/20/2014 SANJAY BOLES MD Ot V43.65 11/20/2014 SANJAY BOLES MD Ot V72.84 09/16/2015 Ot 244.9 09/16/2015 Ot 277.7 09/16/2015 Ot 790.29 09/16/2015 Ot V76.12 09/16/2015 Ot 780.2 09/16/2015 Ot 780.93 09/16/2015 Ot 611.71 09/16/2015 Ot V76.12 09/16/2015 HENRIQUE ELENA, DAMARIS Baptiste Ot 719.46 09/16/2015 FARZAD ELENA FACJulio, ALI FACP CCDS Ot 244.8 09/16/2015 FARZAD ELENA FACC, ALI FACP CCDS Ot 278.00 09/16/2015 FARZAD ELENA FACC, ALI FACP CCDS Ot 296.7 09/16/2015 FARZAD ELENA FACC, ALI FACP CCDS Ot 309.81 09/16/2015 FARZAD ELENA FACC, ALI FACP CCDS Ot 716.90 09/16/2015 FARZAD ELENA LOCATED WITHIN [facility], ALI FACP CCDS Ot 786.09 09/16/2015 FARZAD ELENA LOCATED WITHIN [facility], ALI FACP CCDS Ot 786.50 09/16/2015 FARZAD ELENA LOCATED WITHIN [facility], ALI FACP CCDS Ot V17.49 09/16/2015 FARZAD ELENA LOCATED WITHIN [facility], ALI FACP CCDS Ot 729.81 09/16/2015 FARZAD ELENA LOCATED WITHIN [facility], ALI FACP CCDS Ot 786.50 09/16/2015 RAVI LOPEZ SEWING SUPERVISOR Ot 784.2 09/16/2015 Ot 785.1 09/16/2015 VEL ELENA, GENE Cotter Ot V76.12 09/16/2015 OTTO BAEZ PATTERN CUTTER Ot 715.36 09/16/2015 RAMANA ELENA, SANJAY P Ot 153.6 09/16/2015 RAMANA ELENA, SANJAY P Ot 728.3 09/16/2015 RAMANA ELENA, SANJAY P Ot 780.79 09/16/2015 RAMANA ELENA, SANJAY P Ot V57.1 09/16/2015 RAMANA ELENA, SANJAY P Ot V57.21 09/16/2015 RAMANA ELENA, SANJAY P Ot V72.63 09/16/2015 RAMANA ELENA, SANJAY P Ot V74.8 09/16/2015 OTTO BAEZ PATTERN CUTTER Ot 793.11 09/16/2015 RAMANA ELENA, SANJAY P Ot 996.42 09/16/2015 RAMANA ELENA, SANJAY P Ot V43.65 09/16/2015 RAMANA ELENA, SANJAY P Ot V72.84 09/17/2015 DEON GONZALES L PATTERN CUTTER Ot I07.1 09/17/2015 BAIMADEON L PATTERN CUTTER Ot I34.0 09/17/2015 BAIMADEON L PATTERN CUTTER Ot I70.0 10/13/2015 BAIMADEON L PATTERN CUTTER Ot I07.1 10/13/2015 BAIMA, DEON L PATTERN CUTTER Ot I34.0 10/13/2015 BAIMADEON L PATTERN CUTTER Ot I70.0 02/03/2017 Ot 780.2 SYNCOPE AND COLLAPSE 02/03/2017 Ot 780.93 MEMORY LOSS 02/03/2017 Ot 611.71 MASTODYNIA 02/03/2017 Ot V76.12 OTH SCREEN MAMMO-MALIGN NEOPLASM OF ROHIT 02/03/2017 HENRIQUE ELENA, DAMARIS Baptiste Ot 719.46 JOINT PAIN-L/LEG 02/03/2017 FARZAD ELENA LOCATED WITHIN [facility], ALI FACP CCDS Ot 244.8 ACQUIRED HYPOTHYROID NEC 02/03/2017 FARZAD ELENA FACC, ALI FACP CCDS Ot 278.00 OBESITY, NOS 02/03/2017 FARZAD ELENA FAC, ALI FACP CCDS Ot 296.7 BIPOL I, MOST RECENT EPISODE (OR CURRENT 02/03/2017 FARZAD ELENA LOCATED WITHIN [facility], ALI FACP CCDS Ot 309.81 POSTTRAUMATIC STRESS DISORDER 02/03/2017 FARZAD ELENA LOCATED WITHIN [facility], ALI FACP CCDS Ot 716.90 ARTHROPATHY NOS-UNSPEC 02/03/2017 FARZAD ELENA LOCATED WITHIN [facility], ALI FACP CCDS Ot 786.09 RESPIRATORY ABNORM NEC 02/03/2017 FARZAD ELENA LOCATED WITHIN [facility], ALI FACP CCDS Ot 786.50 CHEST PAIN NOS 02/03/2017 FARZAD ELENA LOCATED WITHIN [facility], ALI FACP CCDS Ot V17.49 FAMILY HISTORY OF OTHER CARDIOVASCULAR D 02/03/2017 FARZAD ELENA LOCATED WITHIN [facility], ALI FACP CCDS Ot 729.81 SWELLING OF LIMB 02/03/2017 FARZAD ELENA LOCATED WITHIN [facility], ALI FACP CCDS Ot 786.50 CHEST PAIN NOS 02/03/2017 RAVI LOPEZ SEWING SUPERVISOR Ot 784.2 SWELLING IN HEAD NECK 02/03/2017 Ot 785.1 PALPITATIONS 02/03/2017 VEL ELENA, GENE Cotter Ot V76.12 OTH SCREEN MAMMO-MALIGN NEOPLASM OF ROHIT 02/03/2017 OTTO BAEZ PATTERN CUTTER Ot 715.36 LOC OSTEOARTH NOS-L/LEG 02/03/2017 SANJAY BOLES MD Ot 153.6 MALIG RY ASCEND COLON 02/03/2017 SANJAY BOLES MD Ot 728.3 MUSCLE DISORDERS NEC 02/03/2017 SANJAY BOLES MD Ot 780.79 OTH MALAISE FATIGUE 02/03/2017 SANJAY BOLES MD Ot V57.1 PHYSICAL THERAPY NEC 02/03/2017 SANJAY BOLES MD Ot V57.21 ENCOUNTER FOR OCCUPATIONAL THERAPY 02/03/2017 SANJAY BOLES MD Ot V72.63 PRE-PROCEDURAL LABORATORY EXAMINATION 02/03/2017 SANJAY BOLES MD Ot V74.8 SCREEN-BACTERIAL DIS NEC 02/03/2017 OTTO BAEZ PATTERN CUTTER Ot 793.11 SOLITARY PULMONARY NODULE 02/03/2017 SANJAY BOLES MD Ot 996.42 DISLOCATION OF PROSTHETIC JOINT 02/03/2017 SANJAY BOLES MD Ot V43.65 KNEE JOINT REPLACEMENT STATUS 02/03/2017 SANJAY BOLES MD Ot V72.84 EXAM PRE-OPERATIVE NOS 02/03/2017 DEON GONZALES PATTERN CUTTER Ot I07.1 RHEUMATIC TRICUSPID INSUFFICIENCY 02/03/2017 DEON GONZALES PATTERN CUTTER Ot I34.0 NONRHEUMATIC MITRAL (VALVE) INSUFFICIENC 02/03/2017 DEON GONZALES PATTERN CUTTER Ot I70.0 ATHEROSCLEROSIS OF AORTA 02/09/2017 BERNADETTE POPE ORGAN TUNER ELECTRONIC Ot G89.29 OTHER CHRONIC PAIN 02/09/2017 BERNADETTE POPE ORGAN TUNER ELECTRONIC Ot M25.78 OSTEOPHYTE, VERTEBRAE 02/09/2017 BERNADETTE POPE ORGAN TUNER ELECTRONIC Ot M54.5 LOW BACK PAIN 02/09/2017 BERNADETTE POPE ORGAN TUNER ELECTRONIC Ot M54.6 PAIN IN THORACIC SPINE 02/25/2017 BERNADETTE POPE ORGAN TUNER ELECTRONIC Ot G89.29 OTHER CHRONIC PAIN 02/25/2017 BERNADETTE POPE ORGAN TUNER ELECTRONIC Ot M25.78 OSTEOPHYTE, VERTEBRAE 02/25/2017 BERNADETTE POEP ORGAN TUNER ELECTRONIC Ot M54.5 LOW BACK PAIN 02/25/2017 BERNADETTE POPE ORGAN TUNER ELECTRONIC Ot M54.6 PAIN IN THORACIC SPINE 05/24/2017 Ot 780.2 SYNCOPE AND COLLAPSE 05/24/2017 Ot 780.93 MEMORY LOSS 05/24/2017 Ot 611.71 MASTODYNIA 05/24/2017 Ot V76.12 OTH SCREEN MAMMO-MALIGN NEOPLASM OF ROHIT 05/24/2017 HENRIQUE ELENA, DAMARIS Baptiste Ot 719.46 JOINT PAIN-L/LEG 05/24/2017 FARZAD ELENA FACJulio, ONELIA FACP CCDS Ot 244.8 ACQUIRED HYPOTHYROID NEC 05/24/2017 FARZAD ELENA FACC, ONELIA FACP CCDS Ot 278.00 OBESITY, NOS 05/24/2017 FARZAD ELENA FACC, ALI FACP CCDS Ot 296.7 BIPOL I, MOST RECENT EPISODE (OR CURRENT 05/24/2017 FARZAD ELENA FACC, ALI FACP CCDS Ot 309.81 POSTTRAUMATIC STRESS DISORDER 05/24/2017 FARZAD ELENA FACC, ALI FACP CCDS Ot 716.90 ARTHROPATHY NOS-UNSPEC 05/24/2017 FARZAD ELENA FACC, ALI FACP CCDS Ot 786.09 RESPIRATORY ABNORM NEC 05/24/2017 FARZAD ELENA FACC, ALI FACP CCDS Ot 786.50 CHEST PAIN NOS 05/24/2017 FARZAD ELENA FACC, ALI FACP CCDS Ot V17.49 FAMILY HISTORY OF OTHER CARDIOVASCULAR D 05/24/2017 FARZAD ELENA FACC, ALI FACP CCDS Ot 729.81 SWELLING OF LIMB 05/24/2017 FARZAD ELENA FACC, ONELIA FACP CCDS Ot 786.50 CHEST PAIN NOS 05/24/2017 RAVI LOPEZ SEWING SUPERVISOR Ot 784.2 SWELLING IN HEAD NECK 05/24/2017 Ot 785.1 PALPITATIONS 05/24/2017 VEL ELENA, GENE Cotter Ot V76.12 OTH SCREEN MAMMO-MALIGN NEOPLASM OF ROHIT 05/24/2017 OTTO BAEZ PATTERN CUTTER Ot 715.36 LOC OSTEOARTH NOS-L/LEG 05/24/2017 SANJAY BOLES MD Ot 153.6 MALIG RY ASCEND COLON 05/24/2017 SANJAY BOLES MD Ot 728.3 MUSCLE DISORDERS NEC 05/24/2017 SANJAY BOLES MD Ot 780.79 OTH MALAISE FATIGUE 05/24/2017 SANJAY BOLES MD Ot V57.1 PHYSICAL THERAPY NEC 05/24/2017 SANJAY BOLES MD Ot V57.21 ENCOUNTER FOR OCCUPATIONAL THERAPY 05/24/2017 SANJAY BOLES MD Ot V72.63 PRE-PROCEDURAL LABORATORY EXAMINATION 05/24/2017 SANJAY BOLES MD Ot V74.8 SCREEN-BACTERIAL DIS NEC 05/24/2017 OTTO BAEZ PATTERN CUTTER Ot 793.11 SOLITARY PULMONARY NODULE 05/24/2017 SANJAY BOLES MD Ot 996.42 DISLOCATION OF PROSTHETIC JOINT 05/24/2017 SANJAY BOLES MD Ot V43.65 KNEE JOINT REPLACEMENT STATUS 05/24/2017 SANJAY BOLES MD Ot V72.84 EXAM PRE-OPERATIVE NOS 05/24/2017 DEON GONZALES PATTERN CUTTER Ot I07.1 RHEUMATIC TRICUSPID INSUFFICIENCY 05/24/2017 DEON GONZALES PATTERN CUTTER Ot I34.0 NONRHEUMATIC MITRAL (VALVE) INSUFFICIENC 05/24/2017 DEON GONZALES PATTERN CUTTER Ot I70.0 ATHEROSCLEROSIS OF AORTA 05/24/2017 BERNADETTE POPE ORGAN TUNER ELECTRONIC Ot G89.29 OTHER CHRONIC PAIN 05/24/2017 BERNADETTE POPE ORGAN TUNER ELECTRONIC Ot M25.78 OSTEOPHYTE, VERTEBRAE 05/24/2017 BERNADETTE POPE ORGAN TUNER ELECTRONIC Ot M54.5 LOW BACK PAIN 05/24/2017 BERNADETTE POPE ORGAN TUNER ELECTRONIC Ot M54.6 PAIN IN THORACIC SPINE 05/24/2017 BERNADETTE POPE ORGAN TUNER ELECTRONIC Ot R22.41 LOCALIZED SWELLING, MASS AND LUMP, RIGHT 06/02/2017 BERNADETTE POPE ORGAN TUNER ELECTRONIC Ot M19.071 PRIMARY OSTEOARTHRITIS, RIGHT ANKLE AND 06/07/2017 BERNADETTE POPE ORGAN TUNER ELECTRONIC Ot M19.071 PRIMARY OSTEOARTHRITIS, RIGHT ANKLE AND 06/07/2017 OTTO BAEZ Ot 715.36 LOC OSTEOARTH NOS-L/LEG 06/07/2017 SANJAY BOLES MD Ot 153.6 MALIG RY ASCEND COLON 06/07/2017 SANJAY BOLES MD Ot 728.3 MUSCLE DISORDERS NEC 06/07/2017 SANJAY BOLES MD Ot 780.79 OTH MALAISE FATIGUE 06/07/2017 SANJAY BOLES MD Ot V57.1 PHYSICAL THERAPY NEC 06/07/2017 SANJAY BOLES MD Ot V57.21 ENCOUNTER FOR OCCUPATIONAL THERAPY 06/07/2017 SANJAY BOLES MD Ot V72.63 PRE-PROCEDURAL LABORATORY EXAMINATION 06/07/2017 SANJAY BOLES MD Ot V74.8 SCREEN-BACTERIAL DIS NEC 06/07/2017 OTTO BAEZ Ot 793.11 SOLITARY PULMONARY NODULE 06/07/2017 SANJAY BOLES MD Ot 996.42 DISLOCATION OF PROSTHETIC JOINT 06/07/2017 SANJAY BOLES MD Ot V43.65 KNEE JOINT REPLACEMENT STATUS 06/07/2017 SANJAY BOLES MD Ot V72.84 EXAM PRE-OPERATIVE NOS 06/07/2017 DEON GONZALES PATTERN CUTTER Ot I07.1 RHEUMATIC TRICUSPID INSUFFICIENCY 06/07/2017 DEON GONZALES PATTERN CUTTER Ot I34.0 NONRHEUMATIC MITRAL (VALVE) INSUFFICIENC 06/07/2017 DEON GONZALES PATTERN CUTTER Ot I70.0 ATHEROSCLEROSIS OF AORTA 06/07/2017 BERNADETTE POPE ORGAN TUNER ELECTRONIC Ot G89.29 OTHER CHRONIC PAIN 06/07/2017 BERNADETTE POPE ORGAN TUNER ELECTRONIC Ot M25.78 OSTEOPHYTE, VERTEBRAE 06/07/2017 BERNADETTE POPE ORGAN TUNER ELECTRONIC Ot M54.5 LOW BACK PAIN 06/07/2017 BERNADETTE POPE ORGAN TUNER ELECTRONIC Ot M54.6 PAIN IN THORACIC SPINE 06/07/2017 BERNADETTE POPE ORGAN TUNER ELECTRONIC Ot M79.661 PAIN IN RIGHT LOWER LEG 06/07/2017 BERNADETTE POPE ORGAN TUNER ELECTRONIC Ot M19.071 PRIMARY OSTEOARTHRITIS, RIGHT ANKLE AND 06/14/2017 BERNADETTE POPE ORGAN TUNER ELECTRONIC Ot M79.661 PAIN IN RIGHT LOWER LEG 06/24/2017 BERNADETTE POPE ORGAN TUNER ELECTRONIC Ot M19.071 PRIMARY OSTEOARTHRITIS, RIGHT ANKLE AND 06/29/2017 BERNADETTE POPE ORGAN TUNER ELECTRONIC Ot M79.604 PAIN IN RIGHT LEG 06/29/2017 BERNADETTE POPE ORGAN TUNER ELECTRONIC Ot R60.0 LOCALIZED EDEMA 07/05/2017 BERNADETTE POPE ORGAN TUNER ELECTRONIC Ot G89.29 OTHER CHRONIC PAIN 07/05/2017 BERNADETTE POPE ORGAN TUNER ELECTRONIC Ot M25.78 OSTEOPHYTE, VERTEBRAE 07/05/2017 BERNADETTE POPE ORGAN TUNER ELECTRONIC Ot M54.5 LOW BACK PAIN 07/05/2017 BERNADETTE POPE ORGAN TUNER ELECTRONIC Ot M54.6 PAIN IN THORACIC SPINE 07/18/2017 BERNADETTE POPE ORGAN TUNER ELECTRONIC Ot M79.604 PAIN IN RIGHT LEG 07/18/2017 BERNADETTE POPE ORGAN TUNER ELECTRONIC Ot R60.0 LOCALIZED EDEMA 07/27/2017 BERNADETTE POPE ORGAN TUNER ELECTRONIC Ot M17.11 UNILATERAL PRIMARY OSTEOARTHRITIS, RIGHT 07/27/2017 BERNADETTE POPE ORGAN TUNER ELECTRONIC Ot M67.461 GANGLION, RIGHT KNEE 07/27/2017 BERNADETTE POPE ORGAN TUNER ELECTRONIC Ot R60.0 LOCALIZED EDEMA 07/27/2017 BERNADETTE POPE ORGAN TUNER ELECTRONIC Ot S83.231A COMPLEX TEAR OF MEDIAL MENSC, CURRENT IN 07/27/2017 BERNADETTE POPE Roger ORGAN TUNER ELECTRONIC Ot S83.411A SPRAIN OF MEDIAL COLLATERAL LIGAMENT OF 08/03/2017 SEEMA POPEHALI Duran ORGAN TUNER ELECTRONIC Ot M79.661 PAIN IN RIGHT LOWER LEG 08/03/2017 BERNADETTE POPE Roger ORGAN TUNER ELECTRONIC Ot M79.661 PAIN IN RIGHT LOWER LEG 08/12/2017 BERNADETTE POPE Roger ORGAN TUNER ELECTRONIC Ot M17.11 UNILATERAL PRIMARY OSTEOARTHRITIS, RIGHT 08/12/2017 POPE SEEMAHALI Duran ORGAN TUNER ELECTRONIC Ot M67.461 GANGLION, RIGHT KNEE 08/12/2017 SEEMA POPEHALI Duran ORGAN TUNER ELECTRONIC Ot R60.0 LOCALIZED EDEMA 08/12/2017 SEEMA POPEHALI Duran ORGAN TUNER ELECTRONIC Ot S83.231A COMPLEX TEAR OF MEDIAL MENSC, CURRENT IN 08/12/2017 POPE SEEMAHALI Duran ORGAN TUNER ELECTRONIC Ot S83.411A SPRAIN OF MEDIAL COLLATERAL LIGAMENT OF 09/21/2017 MEL MELENDREZ MD Ot M62.81 MUSCLE WEAKNESS (GENERALIZED) 09/21/2017 MEL MELENDREZ MD Ot R25.1 TREMOR, UNSPECIFIED 09/21/2017 MEL MELENDREZ MD Ot R42 DIZZINESS AND GIDDINESS 10/05/2017 MEL MELENDREZ MD Ot M41.85 OTHER FORMS OF SCOLIOSIS, THORACOLUMBAR 10/05/2017 MEL MELENDREZ MD Ot 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 10/05/2017 MEL MELENDREZ MD Ot N20.0 CALCULUS OF KIDNEY 10/13/2017 TOSHIA SEEMAHALI Duran ORGAN TUNER ELECTRONIC Ot G89.29 OTHER CHRONIC PAIN 10/13/2017 BERNADETTE POPE ORGAN TUNER ELECTRONIC Ot M25.78 OSTEOPHYTE, VERTEBRAE 10/13/2017 TOSHIA SEEMAHALI Duran ORGAN TUNER ELECTRONIC Ot M54.5 LOW BACK PAIN 10/13/2017 BERNADETTE POPE ORGAN TUNER ELECTRONIC Ot M54.6 PAIN IN THORACIC SPINE 10/20/2017 MEL MELENDREZ MD Ot M62.81 MUSCLE WEAKNESS (GENERALIZED) 10/20/2017 MEL MELENDREZ MD Ot R25.1 TREMOR, UNSPECIFIED 10/20/2017 MEL MELENDREZ MD Ot R42 DIZZINESS AND GIDDINESS 11/01/2017 MEL MELENDREZ MD Ot M41.85 OTHER FORMS OF SCOLIOSIS, THORACOLUMBAR 11/01/2017 MEL MELENDREZ MD Ot 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 Encounters ACCT No. Visit Date/Time Discharge Status Pt. Type Provider Facility Loc./Unit Complaint [id number] 03/14/2014 13:29:00 03/14/2014 23:59:59 CLS Outpatient GRADY RODAS APRN [id number] 03/14/2014 13:29:00 03/14/2014 23:59:59 CLS Outpatient GRADY RODAS APRN [id number] 09/06/2012 09:48:00 09/06/2012 23:59:59 CLS Outpatient GRADY RODAS APRN [id number] 03/30/2012 13:14:00 03/30/2012 23:59:59 CLS Outpatient ROBBY HERNANDEZ DO [facility] 08/05/2014 06:02:08 ACT Document Registration [id number] 12/21/2017 10:40:00 12/21/2017 23:59:59 CLS Outpatient FER MICHELLE MD [facility] PREOP COLONOSCOPY [id number] 10/04/2017 13:52:00 10/04/2017 23:59:59 CLS Outpatient MEL MELENDREZ MD [facility] RAD M40.292 [id number] 09/20/2017 12:35:00 09/20/2017 23:59:59 CLS Outpatient MEL MELENDREZ MD [facility] RAD MUSCLE WEAKNESS [id number] 07/05/2017 15:10:00 07/05/2017 23:59:59 CLS Outpatient BERNADETTE POPE ORGAN TUNER ELECTRONIC [facility] RAD M25.561 PAIN IN RIGHT KNEE [id number] 06/07/2017 15:15:00 06/07/2017 23:59:59 CLS Outpatient BERNADETTE POPE ORGAN TUNER ELECTRONIC [facility] RAD M79.604 [id number] 06/01/2017 16:32:00 06/01/2017 23:59:59 CLS Outpatient BERNADETTE POPE ORGAN TUNER ELECTRONIC [facility] RAD M79.661 [id number] 05/24/2017 12:20:00 05/24/2017 23:59:59 CLS Outpatient BERNADETTE POPE ORGAN TUNER ELECTRONIC [facility] RAD PAIN IN RIGHT LOWER LEG M79.661 [id number] 02/03/2017 15:38:00 02/03/2017 23:59:59 CLS Outpatient BERNADETTE POPE ORGAN TUNER ELECTRONIC [facility] RAD CHRONIC BACK PAIN [id number] 09/16/2015 14:19:00 09/16/2015 23:59:59 CLS Outpatient DEON GONZALES [facility] CARD CAD,MILD MITRAL REGUITATION [id number] 08/07/2014 06:00:00 08/10/2014 10:25:00 DIS Inpatient SANJAY BOLES MD [facility] SURGICAL MULTIPLE FALLS [id number] 08/08/2014 11:12:00 08/08/2014 23:59:59 CLS Preadmit SANJAY BOLES MD [facility] REHAB [id number] 08/05/2014 06:01:00 08/05/2014 23:59:59 CLS Outpatient SANJAY BOLES MD [facility] PREOP REVISION TOTAL KNEE [id number] 07/31/2014 02:55:00 08/02/2014 19:06:00 DIS Inpatient MEL MELENDREZ MD [facility] SURGICAL CELLULITIS L LEG;S/ P L KNEE REPLACEMENT [id number] 07/24/2014 08:13:00 07/24/2014 09:09:00 DIS Emergency STEVIE SALGUERO MD [facility] ER FALL/KNEE PAIN [id number] 07/17/2014 08:35:00 07/20/2014 11:46:00 DIS Inpatient SANJAY BOLES MD [facility] SURGICAL LEFT KNEE OSTEOARTHRITIS [id number] 07/15/2014 14:08:00 07/15/2014 23:59:59 CLS Outpatient OTTO BAEZ PATTERN CUTTER [facility] RAD RIGHT SUPRAHILAR NODULE ON PREOP CHEST XRAY [id number] 07/09/2014 10:00:00 07/09/2014 23:59:59 CLS Outpatient SANJAY BOLES MD [facility] PREOP LEFT KNEE OSTEOARTHRITIS [id number] 06/12/2014 14:12:00 06/12/2014 23:59:59 CLS Outpatient OTTO BAEZ PATTERN CUTTER [facility] RAD LT KNEE DJD [id number] 05/09/2014 19:45:00 05/09/2014 21:19:00 DIS Emergency ONEIL DO, SERGIO K [facility] ER BLURRY VISION L EYE ONLY [id number] 11/29/2013 20:55:00 11/30/2013 07:00:00 DIS Outpatient RAVI LOPEZ SEWING SUPERVISOR [facility] SLEEP SNORING,UNSPEC SLEEP DISTURBANCE [id number] 11/15/2013 09:09:00 11/15/2013 23:59:59 CLS Outpatient GENE CROWDER MD [facility] RAD SCREENING [id number] 07/23/2013 09:17:00 09/23/2013 00:01:00 DIS Outpatient DEON GONZALES PATTERN CUTTER [facility] CARD PALPITATIONS [id number] 08/30/2013 10:42:00 08/30/2013 23:59:59 CLS Outpatient RAVI LOPEZ SEWING SUPERVISOR [facility] RAD NECK NODES [id number] 08/10/2013 09:39:00 08/10/2013 23:59:59 CLS Outpatient FARZAD ELENA FACC, ONELIA MELGAR CCDS [facility] RAD DYSPNEA,CP, LEG SWELLING [id number] 07/13/2013 09:19:00 07/13/2013 23:59:59 CLS Outpatient FARZAD ELENA FACC, ONELAI MELGAR CCDS [facility] RAD DYSPNEA,CP, LEG SWELLING [id number] 06/19/2013 00:35:00 06/19/2013 17:20:00 DIS Outpatient ZAHIDA ELENA, KARINA Boyce [facility] CATH CHEST PAIN [id number] 02/21/2013 13:52:00 02/21/2013 23:59:59 CLS Outpatient DAMARIS DUENAS MD [facility] RAD L KNEE PAIN [id number] 12/28/2017 09:30:00 PEN Preadmit FER MCIHELLE MD [facility] ENDO OCCULT BLOOD STOOL/DIARRHEA [id number] 09/24/2013 10:00:00 Document Registration [id number] 09/25/2012 09:40:00 Document Registration [id number] 12/16/2011 07:46:00 Document Registration [id number] 05/03/2011 10:01:00 Document Registration [id number] 02/04/2011 16:48:00 Document Registration [id number] 12/31/2010 07:16:00 Document Registration [id number] 08/24/2010 08:41:00 Document Registration [id number] 07/21/2010 22:59:00 Document Registration [id number] 04/02/2010 09:18:00 Document Registration [id number] 10/20/2009 11:25:00 Document Registration
[2017-12-28 10:20] VITALS: BP 177/79
[2017-12-28] MEDS ORDERED: NS IV 500 ML 500 ML ONE ×2 (10:36→13:48)
[2017-12-28] MEDS ORDERED: LIDOCAINE JELLY 2% (XYLOCAINE) 5 ML TUBE MM PRN (10:45)
[2017-12-28] MEDS: NS IV 500 ML 500 ML IV PRN ×2 (10:50→13:52)
--- NOTE | 2017-12-28 12:10 | Progress Note-Pre Operative ---
Pre-Operative Progress Note H&P Reviewed The H&P was reviewed, patient examined and no changes noted. Date Seen by Provider: December 28, 2017 Time Seen by Provider: 11:30 Date H&P Reviewed: December 28, 2017 Time H&P Reviewed: 11:30 Pre-Operative Diagnosis: heme positive stools FER MICHELLE MD December 28, 2017 12:10 pm
--- NOTE | 2017-12-28 12:10 | Conscious Sedation/ASA ---
Conscious Sedation Pre-Proced Time Reviewed: 11:30 ASA Class: 2 Airway Mallampati Classification: (seminole appropriate class) I. II. III, IV Lungs Heart ASA score ASA 1: a normal healthy patient ASA 2: a patient with a mild systemic disease (mid diabetes, controlled hypertension, obesity ASA 3: a patient with a severe systemic disease that limits activity (angina , COPD, prior Myocardial infarction) ASA 4: a patient with an incapacitating disease that is a constant threat to life (CHF, renal failure) ASA 5: a moribund patient not expected to survive 24 hrs. (ruptured aneurysm) ASA 6: a declared brain patient whose organs are being harvested. For emergent operations, add the letter E after the classification Grade 2 Sedation Plan: Analgesia, Amnesia, Plan communicated to team members, Discussed options with patient/fam, Discussed risks with patient/fam Note The patient is an appropriate candidate to undergo the planned procedure, sedation, and anesthesia. The patient immediately re-assessed prior to indication. FER MICHELLE MD December 28, 2017 12:10 pm
[2017-12-28] MEDS ORDERED: ACETAMINOPHEN 325 MG TABLET/CAPLET (TYLENOL) PO PRN (12:15)
[2017-12-28] MEDS ORDERED: HYDROcodone/APAP 5 MG/325 MG (LORTAB) TAB PO PRN (12:15)
[2017-12-28] MEDS ORDERED: ONDANSETRON 4 MG/2 ML (SDV) Z0FRAN IV PRN (12:15)
[2017-12-28] MEDS ORDERED: morphine INJ 10 MG/ML 1ML (SYR OR VIAL) IV PRN (12:15)
[2017-12-28] MEDS ORDERED: LIDOCAINE JELLY 2% (XYLOCAINE) 5 ML TUBE ONE (12:51)
[2017-12-28] MEDS ORDERED: fentaNYL INJECTION 100 MCG/2 ML AMP ONE ×3 (12:51→13:30)
[2017-12-28] MEDS ORDERED: MIDAZOLAM 2 MG/2 ML (VERSED) VIAL ONE ×6 (12:52→13:10)
[2017-12-28] MEDS: fentaNYL INJECTION 100 MCG/2 ML AMP IVP PRN ×6 (13:00→13:39)
[2017-12-28] MEDS: MIDAZOLAM 2 MG/2 ML (VERSED) VIAL IVP PRN ×6 (13:15→13:28)
[2017-12-28] MEDS ORDERED: proPOfol 200 MG/20 ML (DIPRIVAN) VIAL IV ONE (13:41)
--- NOTE | 2017-12-28 14:06 | Progress Note-Post Operative ---
Post-Operative Progess Note Surgeon (s)/Bolting Machine Operator (s) Surgeon FER MICHELLE MD Bolting Machine Operator: none Pre-Operative Diagnosis heme positive stools Post-Operative Diagnosis mild chronic stage 2 ext and int hemorrhoids, moderate sigmoid diverticulosis. Procedure & Operative Findings Date of Procedure 12/28/17 Procedure Performed/Findings Colonoscopy. Anesthesia Type MAC Estimated Blood Loss Estimated blood loss (mL): minimal Specimens/Packing Specimens Removed none FER MICHELLE MD December 28, 2017 2:06 pm
--- NOTE | 2017-12-28 14:09 | Discharge Inst-Surgical ---
D/C Lap Instructions-VIVIANA Follow Up 10 years Activity as tolerated High Fiber Diet 25g or more per day Avoid Alcohol, Caffeine, Spicy Bronte and Acid foods. Drink 64 fluid oz or more of fluids per day. Symptoms to Report: Fever over 101 degree F, Nausea/Vomiting If any problems/questions: Contact your physician or go to Emergency Room FER MICHELLE MD December 28, 2017 2:09 pm
[2017-12-28 14:30] VITALS: BP 174/84
[2017-12-28 14:55] VITALS: BP 168/74
[2017-12-28 15:00] VITALS: BP 168/74
--- NOTE | 2017-12-28 21:21 | OPERATIVE REPORT ---
DATE OF SERVICE: 12/28/2017 ATTENDING PHYSICIAN: Dr. Cox. PREOPERATIVE DIAGNOSIS: Hemoccult positive stools. POSTOPERATIVE DIAGNOSIS: Chronic stage II external and internal hemorrhoids, moderate sigmoid diverticulosis. PROCEDURE: Colonoscopy. SURGEON: FER MICHELLE MD ANESTHESIA: Monitored anesthesia care. ESTIMATED BLOOD LOSS: Minimal. FINDINGS: Chronic stage II external and internal hemorrhoids, not actively edematous nor inflamed and no bleeding. Moderate sigmoid diverticulosis. The remainder of the colon and rectum were normal. There were no bleeding sources identified. DISPOSITION: The patient tolerated the procedure well. The patient is a 62-year-old female who has had diarrhea on for the past few years; however, is unsure why. She reports that she does take Imodium for this. She did have a colonoscopy approximately 6 years ago and believes that to be normal. She also does not report any family history of colon cancer. Hemoccult test was performed, which was positive. The patient was brought to the endoscopy suite, laid in the left lateral decubitus position. After adequate IV pain and sedating medications and conscious sedation anesthesia, a digital rectal examination was performed. Chronic stage II external and internal hemorrhoids were identified, which were not actively edematous nor inflamed and no bleeding. Normal sphincter tone was felt and there were no palpable masses. The endoscope was then intubated to the anus and rectum gently insufflated. The endoscope was then advanced to the valves of Clements of the rectum with no polyps or neoplasms identified. We then proceeded through the sigmoid colon where a moderate sigmoid diverticulosis identified. There were no mucosal inflammatory changes to indicate any active diverticulitis. The endoscope was then advanced through the remainder of the descending, transverse and ascending colon to the cecum. These segments were normal. There were no polyps or any neoplasms identified throughout the colon or rectum. The endoscope was then slowly withdrawn while taking a second look and suctioning of residual air with no additional findings. The patient tolerated the procedure well. We will recommend medical management with a high fiber diet with at least 25 to 30 grams of fiber per day to promote soft stools on a daily basis, that is not diarrhea as well as not constipated and a soft consistency on a regular basis. She does not have any family history of colon cancer does not found to have any polyps and she may wait another 10 years for her next colonoscopy. Job ID: [id number] DocumentID: [id number] Dictated Date: 12/28/2017 14:14:41 Structural Test Engineer Date: 12/28/2017 21:20:08 Dictated By: FER MICHELLE MD
== END 2017-12-28 15:00 | disposition home or self-care (01) ==
LOC: ENDO 10:04
PROVIDERS: ATTEND Surgery
DX: K57.30 Diverticulosis of large intestine without perforation or abscess without bleeding (principal); K64.1 Second degree hemorrhoids; F41.9 Anxiety disorder, unspecified; F32.9 Major depressive disorder, single episode, unspecified; H40.9 Unspecified glaucoma; E03.9 Hypothyroidism, unspecified; I10 Essential (primary) hypertension; E78.00 Pure hypercholesterolemia, unspecified; G47.00 Insomnia, unspecified; K21.9 Gastro-esophageal reflux disease without esophagitis; F90.9 Attention-deficit hyperactivity disorder, unspecified type; Z79.899 Other long term (current) drug therapy; Z79.82 Long term (current) use of aspirin; E66.9 Obesity, unspecified; Z68.41 Body mass index [BMI] 40.0-44.9, adult

== ENCOUNTER → 2018-06-23 | Outpatient (CLI) | payer MEDICARE ==
[~2018-06-23] MED LIST changes: +OXCA300T18 PO
--- NOTE | 2018-06-23 11:58 | Diagnostic Imaging Report ---
PROCEDURE: US right lower extremity venous. TECHNIQUE: Multiple real-time grayscale images were obtained over the right lower extremity in various projections. Additional duplex Doppler and color Doppler images were also obtained. INDICATION: Swelling. COMPARISON: None available. FINDINGS: Normal flow, compression, and augmentation within the visualized deep vein structures of the right lower extremity. IMPRESSION: No evidence of deep venous thrombosis within the right lower extremity. Dictated by: Dictated on workstation # [id number]
== END ==
LOC: RAD 10:08
PROVIDERS: ATTEND Nurse Practitioner Family
DX: M79.89 Other specified soft tissue disorders (principal)

== ENCOUNTER → 2018-09-18 | Outpatient (CLI) | payer MEDICARE, OTHER ==
[~2018-09-18] MED LIST changes: +CATHETER FLUSH 10 ML SYR IV PRN; +IOHEXOL 350 MG/ML 100 ML (OMNIPAQUE 350) VIAL IV ONE; +NS 100 ML (IVPB) BAG IV ONE; +RECEIVED CONTRAST (Hold Metformin) IV SCH
--- NOTE | 2018-09-18 17:05 | Diagnostic Imaging Report ---
PROCEDURE: CT abdomen and pelvis with contrast. TECHNIQUE: Multiple contiguous axial images were obtained through the abdomen and pelvis after administration of intravenous contrast. INDICATION: Left lower quadrant pain. COMPARISON: CT chest of 07/05/2014. FINDINGS: Lower chest: Small cluster of centrilobular micronodules in the right lower lobe. Otherwise, lung bases are clear. Peritoneum: No free intraperitoneal air or fluid. Liver and biliary system: The liver is normal. Layering hyperdensities within the gallbladder suggest cholelithiasis. No biliary duct dilatation. Spleen and Pancreas: Spleen is normal. The pancreas enhances normally without mass lesion or peripancreatic inflammatory changes. Adrenals: Normal. tract: There is a 1.7 cm stone within the left renal pelvis. However, it does not result in hydronephrosis. There are additional nonobstructing left renal stones that are smaller. Nonobstructing punctate stone in lower pole of the right kidney is also noted. No solid renal mass. Cyst in the mid aspect of the left kidney measures 2.4 x 1.8 cm and has attenuation above simple fluid and may represent a complicated cyst. Uterus is surgically absent. No adnexal mass. GI tract: Stomach is decompressed. No bowel obstruction. No pericolonic inflammatory changes. Sigmoid and descending colon diverticulosis. Normal appendix. Vasculature and Lymph nodes: Normal caliber aorta. No abdominal or pelvic lymphadenopathy. Musculoskeletal: No concerning osseous lesion. Advanced degenerative disc disease at L3-4. IMPRESSION: 1. A 1.7 cm stone is present in the left renal pelvis however it does not result in hydronephrosis or obstruction. 2. There are additional nonobstructing bilateral renal stones that are smaller in size. 3. No colitis or diverticulitis. Dictated by: Dictated on workstation # [id number]
== END ==
LOC: RAD 15:42
PROVIDERS: ATTEND Nurse Practitioner Family
DX: N20.0 Calculus of kidney (principal)
CPT/HCPCS: 74177

== ENCOUNTER → 2018-09-26 | Outpatient (CLI) | payer MEDICARE, OTHER ==
[~2018-09-26] MED LIST changes: -CATHETER FLUSH 10 ML SYR IV PRN; -IOHEXOL 350 MG/ML 100 ML (OMNIPAQUE 350) VIAL IV ONE; -NS 100 ML (IVPB) BAG IV ONE; -RECEIVED CONTRAST (Hold Metformin) IV SCH; +REGADENOSON 0.4 MG/5 ML SYR (LEXISCAN) IV ONE
[2018-09-26] MEDS: CATHETER FLUSH 10 ML SYR IV PRN ×2 (11:37→13:06)
[2018-09-26 13:05] VITALS: BP 152/93
== END ==
LOC: CARD 10:59
PROVIDERS: ATTEND Internal Medicine Cardiovascular Disease
DX: R06.09 Other forms of dyspnea (principal); R00.2 Palpitations
CPT/HCPCS: 78452; 93017

== ENCOUNTER → 2018-11-09 | Outpatient (CLI) | payer MEDICARE, OTHER ==
[~2018-11-09] MED LIST changes: -REGADENOSON 0.4 MG/5 ML SYR (LEXISCAN) IV ONE
--- NOTE | 2018-11-09 19:34 | Diagnostic Imaging Report ---
INDICATION: Fall. Three views were obtained. FINDINGS: The alignment of the lumbar spine is grossly normal. There is multilevel degenerative disc disease. There is no spondylolysis or spondylolisthesis. There is some lower lumbar hypertrophic degenerative facet disease. IMPRESSION: Diffuse lumbar spondylosis and multilevel degenerative disc disease with lower lumbar hypertrophic degenerative facet disease. No definite acute fracture, although in light of the osteopenia, an early or occult compression fracture cannot be entirely excluded. Recommend clinical correlation and if warranted followup with MRI. Dictated by: Dictated on workstation # [id number]
== END ==
LOC: RAD 15:19
PROVIDERS: ATTEND Nurse Practitioner Family
DX: M47.816 Spondylosis without myelopathy or radiculopathy, lumbar region (principal); M51.36 Other intervertebral disc degeneration, lumbar region; M85.88 Other specified disorders of bone density and structure, other site
CPT/HCPCS: 72100

== ENCOUNTER → 2018-11-21 | Outpatient (CLI) | payer MEDICARE, OTHER ==
--- NOTE | 2018-11-21 15:36 | Diagnostic Imaging Report ---
PROCEDURE: MRI lumbar spine. TECHNIQUE: Multiplanar, multisequence MRI of the lumbar spine was performed without contrast. INDICATION: Low back pain as well as left hip pain, fall two and a half weeks ago. COMPARISON: No prior studies are available for comparison. FINDINGS: Curvature and alignment of the lumbar spine is normal. There appears to be multilevel degenerative disc disease with variable disc space narrowing and marginal spurring. There is some edema involving the superior endplates of the T12 and L1 vertebral bodies. There also appears to be some mild marrow edema present as well and features are suggestive of acute/subacute superior end plate fractures. There is slight retropulsion identified at the L1 level producing some mild narrowing of the canal. L3-4 level does show trefoil stenosis of the canal due to broad-based disc/osteophyte complex as well as ligamentous thickening and facet changes. There is also significant trefoil stenosis of the L4-5 level. Moderate trefoil stenosis of L5-S1 is seen. Moderate foraminal stenosis on the left side is seen at L3-4. There is severe bilateral neural foraminal stenosis at L4-5 and L5-S1 levels particularly on the right. Neural foramina are widely patent at the L2-3 and L1-2 levels. Conus is unremarkable at the L1 level. Paraspinous tissues are unremarkable. IMPRESSION: Severe lumbar spondylosis with multilevel central canal and neural foraminal stenosis. There are findings suggestive of acute/subacute superior endplate fractures involving the T12 and L1 vertebral bodies with slight retropulsion at the L1 level. Dictated by: Dictated on workstation # [id number]
== END ==
LOC: RAD 14:05
PROVIDERS: ATTEND Nurse Practitioner Family
DX: M47.816 Spondylosis without myelopathy or radiculopathy, lumbar region (principal); M48.061 Spinal stenosis, lumbar region without neurogenic claudication; M51.36 Other intervertebral disc degeneration, lumbar region; W19.XXXA Unspecified fall, initial encounter
CPT/HCPCS: 72148

== ENCOUNTER → 2018-11-27 | Outpatient (CLI) | payer MEDICARE, OTHER ==
--- NOTE | 2018-11-27 14:15 | Diagnostic Imaging Report ---
PROCEDURE: CT abdomen and pelvis without contrast. TECHNIQUE: Multiple contiguous axial images were obtained through the abdomen and pelvis without the use of intravenous contrast. Auto Exposure Controls were utilized during the CT exam to meet ALARA standards for radiation dose reduction. INDICATION: Left flank pain, pelvic pain and hematuria Comparison made with prior examination from 09/18/2018 Findings: The heart size is normal. The lung bases are clear. The liver is normal in size without focal lesions. Gallbladder is unremarkable. There is no biliary ductal dilatation. Spleen is normal. Pancreas and adrenal glands are unremarkable. There are bilateral nonobstructing renal calculi. Note is again made of a 1.7 cm stone in the left renal pelvis without significant hydronephrosis. There are no stones seen along the expected course of the left ureter. Abdominal aorta is nonaneurysmal. Bowel gas pattern is nonspecific. There is no free air. There is no ascites. There are no focal inflammatory changes. There is no pelvic mass, adenopathy or free fluid. There's been interval development of a moderate compression/burst fracture of the L1 vertebral body. There has been some retropulsion of the superior endplate which results in some effacement of ventral thecal sac. There has also been a fracture of the superior endplate of T12. This is minimally depressed. There is otherwise diffuse lumbar spondylosis and multilevel degenerative disc disease. IMPRESSION: Unchanged bilateral nephrolithiasis without evidence of obstructive uropathy. Since the prior examination in September there has been interval development of compression fractures involving T12 and L1. These would likely be amenable to kyphoplasty if clinically warranted. Dictated by: Dictated on workstation # [id number]
== END ==
LOC: RAD 12:53
PROVIDERS: ATTEND Urology
DX: N20.0 Calculus of kidney (principal); M48.55XA Collapsed vertebra, not elsewhere classified, thoracolumbar region, initial encounter for fracture
CPT/HCPCS: 74176

== ENCOUNTER 2018-11-30 09:38 | Emergency (ER) | payer MEDICARE, OTHER ==
[~2018-11-30] VITALS: Ht 167.6 cm; Wt 115.2 kg
--- OUTSIDE RECORDS SUMMARY | 2018-11-30 09:43 | XMS REPORT ---
Author Author Migration, Doctor Organization [facility] Address Unknown Phone Unavailable Care Team Providers Care Mail Handler Sorter Name Role Phone Migration, Doctor Unavailable Unavailable PROBLEMS Type Condition ICD9-CM Code ROA44-IB Code Onset Dates Condition Status SNOMED Code Problem Morbid obesity due to excess calories E66.01 Active [id number] ALLERGIES No Information ENCOUNTERS Encounter Location Date Diagnosis [place] [address] [address] Oct, [place] [address] [address] Sep, [place] [address] [address] Sep, [facility] [address] [place] [id number] [place] [address] Sep, Other microscopic hematuria R31.29 ; Dysuria R30.0 and Morbid obesity E66.01 [facility] [address] [place] [id number] [place] [address] Sep, Dysuria R30.0 ; Acute cystitis without hematuria N30.00 and Morbid obesity E66.01 [facility] [address] [place] [id number] [place] [address] Sep, Vulvovaginitis N76.0 and UTI symptoms R39.9 [place] [address] [place] [id number] [place] [address] November, Morbid obesity due to excess calories E66.01 [facility] [address] [place] [id number] [place] [address] November, [facility] [address] [address] Oct, Morbid (severe) obesity due to excess calories E66.01 [facility] [address] [id number] [address] Oct, [facility] [address] [facility] [id number], [place] [address] Oct, [facility] [address] [facility] [id number], [place] [address] Mar, [facility] [address] [facility] [id number], [place] [address] Mar, [facility] [address] [facility] [id number], [place] [address] Mar, [facility] [address] [facility] [id number], [place] [address] Mar, [facility] [id number] [address] Apr, [facility] [address] [facility] [id number], [place] [address] Mar, [facility] [id number] [address] Dec, [facility] [id number] [address] November, [facility] [id number] [address] Oct, [facility] [address] [facility] [id number], [place] [address] Sep, [facility] [address] [facility] [id number], [place] [address] Sep, [facility] [address] [facility] [id number], [place] [address] Sep, [facility] [id number] [address] Sep, [facility] [address] [id number] [place] [address] Aug, [facility] [place] [facility] [address] [id number] [place] [address] Jul, [facility] [place] [facility] [address] [id number] [place] [address] Jul, [facility] [place] [facility] [address] [id number] [place] [address] Jun, [facility] [place] [facility] [address] [id number] [place] [address] May, [facility] [place] [facility] [address] [id number] [place] [address] Mar, [facility] [place] [facility] [address] [id number] [place] [address] Mar, [facility] [place] [facility] [address] [id number] [place] [address] Dec, [facility] [place] [facility] [address] [id number] [place] [address] Dec, [facility] [place] [facility] [address] [id number] [place] [address] November, [facility] [place] [facility] [address] [id number] [place] [address] Sep, [facility] [place] [facility] [address] [id number] [place] [address] Sep, [facility] [place] [facility] [address] [id number] [place] [address] Sep, [facility] [place] [facility] [address] [id number] [place] [address]- [address] 14 Sep, 2011 [facility] [place] [facility] [address] [id number] [place] [address]- [address] Sep, [facility] [place] [facility] [address] [id number], [place] [address] 13 Sep, 2011 [facility] [address] [facility] [id number] [place] [address] Aug, [facility] [address] [facility] [id number] [place] [address] Aug, [facility] [id number] [place] [address] Jul, [facility] [address] [facility] [id number] [place] [address] Jun, [facility] [address] [place] [id number] [place] [address], [place] [address] May, [facility] [address] [facility] [id number] [place] [address]- [address] Mar, [facility] [id number], [place] [address] Sep, [facility] [address] [place] [address] [id number], [place] [address] Jul, [facility] [id number], [place] [address] Jul, [facility] [id number] [address] May, [facility] [id number] [address] 16 Apr, 2010 [facility] [address] [facility] [id number][place] [address] November, [facility] [address] [place] [id number] [address] 15 Jul, 2009 [facility] [address] [facility] [id number], [place] [address] 24 Jun, 2009 [facility] [address] [id number], [place] [address] 14 May, 2008 IMMUNIZATIONS No Known Immunizations SOCIAL HISTORY Never Assessed REASON FOR VISIT [facility] PLAN OF CARE VITAL SIGNS MEDICATIONS Medication Instructions Dosage Frequency Start Date End Date Duration Status Lamotrigine 100 mg take 2 tablet by Oral route 1 time per day Mar, Active citalopram 20 mg take 1 tablet (20 mg) by oral route once daily Sep Active Doxycycline Hyclate 50 mg take 1 capsule by Oral route 2 times per dayFOR ROSEACEA Sep, Active Celebrex 200 mg 1 capsule by Oral route 2 times per day Sep, Active Metrogel 1 % Apply by Topical route 3 times per day Dec, Active Saphris [address] 2 tablet under the tongue and allow to dissolve by Sublingual route 1 time per day Mar, Active Triazolam 0.25 mg take 1 tablet (0.25 mg) by oral route once daily at bedtime as needed Mar, Active Melatonin 5 mg 1 time per day Sep, Active levothyroxine 125 mcg take 1 tablet (125 mcg) by oral route once daily Mar, Active Topiramate 200 mg take 1 tablet by Oral route 1 time per day Sep, Active diethylpropion 25 mg take 1 tablet (25 mg) by oral route 3 times per day 1 hour before meal(s) , and in midevening if necessary to overcome night hunger Mar, Active PredniSONE 10 mg 3 tablet by Oral route 1 time per day for 5 days Dec, Active Azelex 20 % for rosacea Sep, Active RESULTS No Results PROCEDURES No Known procedures INSTRUCTIONS MEDICATIONS ADMINISTERED No Known Medications MEDICAL (GENERAL) HISTORY Type Description Date Medical History bipolar disorder Medical History hypertension Medical History glaucoma Medical History rosacea Medical History depression Medical History anxiety Surgical History hysterectomy, total with bilateral salpingo-oophorectomy (BSO ) Surgical History tonsillectomy Surgical History left knee replacement Hospitalization History [facility] x3
[2018-11-30] MEDS ORDERED: LACTATED RINGERS 1,000 ML IV ONE (09:44)
--- OUTSIDE RECORDS SUMMARY | 2018-11-30 09:46 | XMS REPORT | Continuity of Care Document ---
Author Organization Unknown Address Unknown Allergies Active Description Code Type Severity Reaction Onset Reported/Identified Relationship to Patient Clinical Status Yes MERCURY MERCURY Mild N/A 08/24/2010 Medications There is no data. Problems Date Dx Coded Attending Type Code Diagnosis Diagnosed By 03/11/2008 ROBBY HERNANDEZ DO K 241.0 Thyroid Nodule 03/11/2008 ROBBY HERNANDEZ DO K 382.00 Otitis Media Acute Without Spontaneous Rupture Eardrum 03/11/2008 ADRIANNA TRAUMA REGISTRAR, GRADY S 241.0 Thyroid Nodule 03/11/2008 ADRIANNA TRAUMA REGISTRAR, GRADY S 382.00 Otitis Media Acute Without Spontaneous Rupture Eardrum 03/11/2008 ADRIANNA DALEYN, GRADY S 241.0 Thyroid Nodule 03/11/2008 ADRIANNA TRAUMA REGISTRAR, GRADY S 382.00 Otitis Media Acute Without Spontaneous Rupture Eardrum 03/11/2008 ADRIANNA TRAUMA REGISTRAR, GRADY S 241.0 Thyroid Nodule 03/11/2008 ADRIANNA TRAUMA REGISTRAR, GRADY S 382.00 Otitis Media Acute Without Spontaneous Rupture Eardrum 03/15/2008 ROBBY HERNANDEZ DO K 626.8 Other Disorders Of Menstruation And Other Abnormal Bleeding From Female Genital Tract 03/15/2008 YVETTE RODAS APRNNDA S 626.8 Other Disorders Of Menstruation And Other Abnormal Bleeding From Female Genital Tract 03/15/2008 YVETTE RODAS APRNNDA S 626.8 Other Disorders Of Menstruation And Other Abnormal Bleeding From Female Genital Tract 03/15/2008 YVETTE RODAS APRNNDA S 626.8 Other Disorders Of Menstruation And Other Abnormal Bleeding From Female Genital Tract 02/03/2009 ROBBY HERNANDEZ DO 705.1 Prickly Heat 02/03/2009 ROBBY HERNANDEZ DO 719.46 Pain In Joint Involving Lower Leg 02/03/2009 ROBBY HERNANDEZ DO 796.2 Elevated Blood Pressure Reading Without Diagnosis Of Hypertension 02/03/2009 ADRIANNA TRAUMA REGISTRAR, GRADY S 705.1 Prickly Heat 02/03/2009 ADRIANNA TRAUMA REGISTRAR, GRADY S 719.46 Pain In Joint Involving Lower Leg 02/03/2009 ADRIANNA TRAUMA REGISTRAR, GRADY S 796.2 Elevated Blood Pressure Reading Without Diagnosis Of Hypertension 02/03/2009 ADRIANNA TRAUMA REGISTRAR, GRADY S 705.1 Prickly Heat 02/03/2009 ADRIANNA TRAUMA REGISTRAR, GRADY S 719.46 Pain In Joint Involving Lower Leg 02/03/2009 ADRIANNA TRAUMA REGISTRAR, GRADY S 796.2 Elevated Blood Pressure Reading Without Diagnosis Of Hypertension 02/03/2009 ADRIANNA TRAUMA REGISTRAR, GRADY S 705.1 Prickly Heat 02/03/2009 ADRIANNA TRAUMA REGISTRAR, GRADY S 719.46 Pain In Joint Involving Lower Leg 02/03/2009 ADRIANNA TRAUMA REGISTRAR, GRADY S 796.2 Elevated Blood Pressure Reading Without Diagnosis Of Hypertension 02/05/2009 DAVID ALCALA ROBBY K 401.9 Hypertension, Unspecified Essential 02/05/2009 ADRIANNA TRAUMA REGISTRAR, GRADY S 401.9 Hypertension, Unspecified Essential 02/05/2009 ADRIANNA TRAUMA REGISTRAR, GRADY S 401.9 Hypertension, Unspecified Essential 02/05/2009 ADRIANNA TRAUMA REGISTRAR, GRADY S 401.9 Hypertension, Unspecified Essential 03/03/2009 ROHITH HERNANDEZ DOA K 401.1 BENIGN ESSENTIAL HYPERTENSION 03/03/2009 DAVID ALCALA ROBBY K 782.1 Rash And Other Nonspecific Skin Eruption 03/03/2009 ADRIANNA DALEYN, GRADY S 401.1 BENIGN ESSENTIAL HYPERTENSION 03/03/2009 ADRIANNA TRAUMA REGISTRAR, GRADY S 782.1 Rash And Other Nonspecific Skin Eruption 03/03/2009 ADRIANNA TRAUMA REGISTRAR, GRADY S 401.1 BENIGN ESSENTIAL HYPERTENSION 03/03/2009 ADRIANNA TRAUMA REGISTRAR, GRADY S 782.1 Rash And Other Nonspecific Skin Eruption 03/03/2009 ADRIANNA TRAUMA REGISTRAR, GRADY S 401.1 BENIGN ESSENTIAL HYPERTENSION 03/03/2009 ADRIANNA TRAUMA REGISTRAR, GRADY S 782.1 Rash And Other Nonspecific Skin Eruption 04/01/2009 ROHITH HERNANDEZ DOA K 715.16 OSTEOARTHROSIS LOCALIZED PRIMARY INVOLVING LOWER LEG 04/01/2009 ADRIANNA TRAUMA REGISTRAR, GRADY S 715.16 OSTEOARTHROSIS LOCALIZED PRIMARY INVOLVING LOWER LEG 04/01/2009 ADRIANNA TRAUMA REGISTRAR, GRADY S 715.16 OSTEOARTHROSIS LOCALIZED PRIMARY INVOLVING LOWER LEG 04/01/2009 ADRIANNA TRAUMA REGISTRAR, GRADY S 715.16 OSTEOARTHROSIS LOCALIZED PRIMARY INVOLVING LOWER LEG 06/24/2009 HERNANDEZ DO, ROBBY K 695.3 ROSACEA 06/24/2009 HERNANDEZ DO, ROBBY K 704.00 Alopecia, Unspecified 06/24/2009 ADRIANNA TRAUMA REGISTRAR, GRADY S 695.3 ROSACEA 06/24/2009 ADRIANNA TRAUMA REGISTRAR, GRADY S 704.00 Alopecia, Unspecified 06/24/2009 ADRIANNA TRAUMA REGISTRAR, GRADY S 695.3 ROSACEA 06/24/2009 ADRIANNA TRAUMA REGISTRAR, GRADY S 704.00 Alopecia, Unspecified 06/24/2009 ADRIANNA TRAUMA REGISTRAR, GRADY S 695.3 ROSACEA 06/24/2009 ADRIANNA TRAUMA REGISTRAR, GRADY S 704.00 Alopecia, Unspecified 08/04/2009 HERNANDEZ DO, ROBBY K 724.3 Neuritis Sciatic 08/04/2009 ADRIANNA TRAUMA REGISTRAR, GRADY S 724.3 Neuritis Sciatic 08/04/2009 ADRIANNA TRAUMA REGISTRAR, GRADY S 724.3 Neuritis Sciatic 08/04/2009 ADRIANNA TRAUMA REGISTRAR, GRADY S 724.3 Neuritis Sciatic 11/03/2009 DAVID ALCALA ROBBY K 278.01 Obesity Morbid Bmi >40 11/03/2009 ADRIANNA TRAUMA REGISTRAR, GRADY S 278.01 Obesity Morbid Bmi >40 11/03/2009 ADRIANNA TRAUMA REGISTRAR, GRADY S 278.01 Obesity Morbid Bmi >40 11/03/2009 ADRIANNA TRAUMA REGISTRAR, GRADY S 278.01 Obesity Morbid Bmi >40 11/06/2009 DAVID ALCALA ROBBY K NODX No Diagnosis 11/06/2009 ADRIANNA TRAUMA REGISTRAR GRADY S NODX No Diagnosis 11/06/2009 ADRIANNA TRAUMA REGISTRARYVETTEGRADY S NODX No Diagnosis 11/06/2009 ADRIANNA TRAUMA REGISTRAR GRADY S NODX No Diagnosis 11/25/2009 DAVID ALCALA ROBBY K 599.0 Urinary Tract Infection, Site Not Specified 11/25/2009 ADRIANNA TRAUMA REGISTRAR, GRADY S 599.0 Urinary Tract Infection, Site Not Specified 11/25/2009 ADRIANNA TRAUMA REGISTRAR, GRADY S 599.0 Urinary Tract Infection, Site Not Specified 11/25/2009 ADRIANNA TRAUMA REGISTRAR, GRADY S 599.0 Urinary Tract Infection, Site Not Specified 12/09/2009 HERNANDEZ DO ROBBY K 244.9 HYPOTHYROIDISM 12/09/2009 HERNANDEZ DO, ROBBY K 788.1 Pain During Urination (dysuria) 12/09/2009 ADRIANNA TRAUMA REGISTRAR, GRADY S 244.9 HYPOTHYROIDISM 12/09/2009 ADRIANNA TRAUMA REGISTRAR, GRADY S 788.1 Pain During Urination (dysuria) 12/09/2009 ADRIANNA TRAUMA REGISTRAR, GRADY S 244.9 HYPOTHYROIDISM 12/09/2009 ADRIANNA TRAUMA REGISTRAR, GRADY S 788.1 Pain During Urination (dysuria) 12/09/2009 ADRIANNA TRAUMA REGISTRAR, GRADY S 244.9 HYPOTHYROIDISM 12/09/2009 ADRIANNA TRAUMA REGISTRAR, GRADY S 788.1 Pain During Urination (dysuria) 12/24/2009 DAVID LACALA ROBBY K 616.10 Vaginitis 12/24/2009 ADRIANNA TRAUMA REGISTRAR, GRADY S 616.10 Vaginitis 12/24/2009 ADRIANNA TRAUMA REGISTRAR, GRADY S 616.10 Vaginitis 12/24/2009 ADRIANNA TRAUMA REGISTRAR, GRADY S 616.10 Vaginitis 02/25/2010 DAVID ALCALA ROBBY K 692.9 Contact Dermatitis And Other Eczema, Unspecified Cause 02/25/2010 ADRIANNA TRAUMA REGISTRAR, GRADY S 692.9 Contact Dermatitis And Other Eczema, Unspecified Cause 02/25/2010 ADRIANNA TRAUMA REGISTRAR, GRADY S 692.9 Contact Dermatitis And Other Eczema, Unspecified Cause 02/25/2010 ADRIANNA TRAUMA REGISTRAR, GRADY S 692.9 Contact Dermatitis And Other Eczema, Unspecified Cause 04/16/2010 ROHITH HERNANDEZ DOA K 564.1 IRRITABLE BOWEL SYNDROME 04/16/2010 YVETTE ROADS APRNNDA S 564.1 IRRITABLE BOWEL SYNDROME 04/16/2010 YVETTE RODAS APRNNDA S 564.1 IRRITABLE BOWEL SYNDROME 04/16/2010 YVETTE [...] ADJUSTMENT DISORDER WITH DEPRESSED MOOD 03/15/2011 ADRIANNA TRAUMA REGISTRAR, GRADY S 309.0 ADJUSTMENT DISORDER WITH DEPRESSED MOOD 06/08/2011 ROBBY HERNANDEZ DO K 110.1 ONYCHOMYCOSIS 06/08/2011 ROBBY HERNANDEZ DO K V04.81 FLU DX (MEDICARE ONLY) 06/08/2011 ADRIANNA TRAUMA REGISTRAR, GRADY S 110.1 ONYCHOMYCOSIS 06/08/2011 ADRIANNA TRAUMA REGISTRAR, GRADY S V04.81 FLU DX (MEDICARE ONLY) 06/08/2011 ADRIANNA TRAUMA REGISTRAR, GRADY S 110.1 ONYCHOMYCOSIS 06/08/2011 ADRIANNA TRAUMA REGISTRAR, GRADY S V04.81 FLU DX (MEDICARE ONLY) 06/08/2011 ADRIANNA TRAUMA REGISTRAR, GRADY S 110.1 ONYCHOMYCOSIS 06/08/2011 ADRIANNA TRAUMA REGISTRAR, GRADY S V04.81 FLU DX (MEDICARE ONLY) 01/06/2012 ROBBY HERNANDEZ DO K 719.45 PAIN IN JOINT INVOLVING PELVIC REGION AND THIGH 01/06/2012 ADRIANNA TRAUMA REGISTRAR, GRADY S 719.45 PAIN IN JOINT INVOLVING PELVIC REGION AND THIGH 01/06/2012 ADRIANNA TRAUMA REGISTRAR, GRADY S 719.45 PAIN IN JOINT INVOLVING PELVIC REGION AND THIGH 01/06/2012 ADRIANNA TRAUMA REGISTRAR, GRADY S 719.45 PAIN IN JOINT INVOLVING PELVIC REGION AND THIGH 03/30/2012 ROBBY HERNANDEZ DO K 726.5 ENTHESOPATHY OF HIP REGION 03/30/2012 ADRIANNA TRAUMA REGISTRAR, GRADY S 726.5 ENTHESOPATHY OF HIP REGION 03/30/2012 ADRIANNA GARDNER, GRADY S 726.5 ENTHESOPATHY OF HIP REGION 03/30/2012 ADRIANNA TRAUMA REGISTRAR, GRADY S 726.5 ENTHESOPATHY OF HIP REGION 06/19/2013 KARINA TEAGUE MD Ot 296.80 BIPOLAR DISORDER, UNSPECIFIED 06/19/2013 KARINA [...] MD Ot V58.69 OT MED,LT,CURRENT USE 09/23/2013 ISAACAIDEMARIDEON Oliva BOARD STACKER Ot 785.1 PALPITATIONS 11/30/2013 RAVI LOPEZ QUALITY ASSURANCE QA LAB ANALYST Ot 780.54 HYPERSOMNIA, UNSPECIFIED 11/30/2013 RAVI LOPEZ QUALITY ASSURANCE QA LAB ANALYST Ot 786.09 RESPIRATORY ABNORM NEC 03/14/2014 GRADY RODAS APRN S 719.46 PAIN- KNEE 03/14/2014 GRADY RODAS APRN S 719.46 PAIN- KNEE 05/09/2014 SERGIO RIGGS DO Ot 368.8 VISUAL DISTURBANCES NEC 05/09/2014 SERGIO RIGGS DO Ot 375.15 TEAR FILM INSUFFIC NOS 05/09/2014 SERGIO RIGGS DO Ot E946.5 ADV EFF EYE ANTI-INF/DRG 06/14/2014 OTTO BAEZ BOARD STACKER Ot 715.36 06/14/2014 VEL ELENA, GENE Cotter Ot V76.12 06/14/2014 Ot 244.9 06/14/2014 Ot 379.93 06/14/2014 Ot 473.9 06/14/2014 Ot 787.02 06/14/2014 Ot 789.01 06/14/2014 Ot V76.12 06/14/2014 Ot 244.9 06/14/2014 Ot 277.7 06/14/2014 Ot 790.29 06/14/2014 Ot V76.12 06/14/2014 Ot 780.2 06/14/2014 Ot 780.93 06/14/2014 Ot 611.71 06/14/2014 Ot V76.12 06/14/2014 HENRIQUE ELENA, DAMARIS Baptiste Ot 719.46 06/14/2014 FARZAD ELENA FACC, ONELIA FACP CCDS Ot 244.8 06/14/2014 FARZAD ELENA FACC, ONELIA FACP CCDS Ot 278.00 06/14/2014 FARZAD ELENA FACC, ONELIA FACP CCDS Ot 296.7 06/14/2014 FARZAD ELENA FACC, ONELIA FACP CCDS Ot 309.81 06/14/2014 FARZAD MD FACC, ALI FACP CCDS Ot 716.90 06/14/2014 FARZAD ELENA FACC, ALI FACP CCDS Ot 786.09 06/14/2014 FARZAD ELENA FACC, ALI FACP CCDS Ot 786.50 06/14/2014 FARZAD ELENA FACC, ALI FACP CCDS Ot V17.49 06/14/2014 FARZAD ELENA FACC, ALI FACP CCDS Ot 729.81 06/14/2014 FARZAD ELENA FACC, ALI FACP CCDS Ot 786.50 06/14/2014 RAVI LOPEZ Ot 784.2 06/14/2014 Ot 785.1 06/14/2014 Ot [...] FACP CCDS Ot 786.50 06/14/2014 RAVI LOPEZ Ot 784.2 06/14/2014 Ot 785.1 06/14/2014 VEL ELENA, GENE Cotter Ot V76.12 06/14/2014 OTTO BAEZ Ot 715.36 07/15/2014 OTTO BAEZ BOARD STACKER Ot 715.36 07/15/2014 SANJAY BOLES MD Ot [...] Cotter Ot 719.46 JOINT PAIN-L/LEG 07/24/2014 NOEMY EELNA, STEVIE A Ot 924.11 CONTUSION OF KNEE 07/24/2014 NOEMY ELENA, STEVIE Cotter Ot E000.8 OTHER EXTERNAL CAUSE STATUS 07/24/2014 NOEMY ELENA, STEVIE Cotter Ot E888.9 FALL NOS 07/24/2014 STEVIE SALGUERO MD Ot V43.65 KNEE JOINT REPLACEMENT STATUS 08/02/2014 PARVIN EELNA MEL Melva Ot 278.01 MORBID OBESITY 08/02/2014 PARVIN ELENA MEL D Ot 296.80 BIPOLAR DISORDER, UNSPECIFIED 08/02/2014 PARVIN ELENA MEL D Ot 300.00 ANXIETY STATE NOS 08/02/2014 PARVIN ELENA MEL D Ot 401.9 HYPERTENSION NOS 08/02/2014 PARVIN ELENA MEL Melva Ot 682.6 CELLULITIS OF LEG 08/02/2014 PARVIN ELENA MEL D Ot 780.52 INSOMNIA, UNSPECIFIED 08/02/2014 PARVIN ELENA MEL D Ot V15.88 HISTORY OF FALL 08/02/2014 PARVIN ELENA MEL Melva Ot V43.65 KNEE JOINT REPLACEMENT STATUS 08/02/2014 PARVIN ELENA MEL D Ot V85.42 BODY MASS INDEX 45.0-49.9, ADULT 08/06/2014 SANJAY BOLES MD P Ot 153.6 08/06/2014 SANJAY BOLES MD P Ot 728.3 08/06/2014 SANJAY BOLES MD P Ot 780.79 08/06/2014 SANJAY BOLES MD P Ot V57.1 08/06/2014 SANJAY BOLES MD P Ot V57.21 08/06/2014 SANJAY BOLES MD P Ot V72.63 08/06/2014 RAMANA ELENA SANJAY P Ot V74.8 08/07/2014 OTTO BAEZ BOARD STACKER Ot 793.11 08/10/2014 SANJAY BOLES MD P Ot 244.9 HYPOTHYROIDISM NOS 08/10/2014 SANJAY BOLES MD P Ot 278.01 MORBID OBESITY 08/10/2014 SANJAY BOLES MD P Ot 285.9 ANEMIA NOS 08/10/2014 SANJAY BOLES MD P Ot 296.80 BIPOLAR DISORDER, UNSPECIFIED 08/10/2014 SANJAY [...] FACP CCDS Ot 716.90 09/16/2015 FARZAD ELENA [facility], ALI FACP CCDS Ot 786.09 09/16/2015 FARZAD ELENA [facility], ALI FACP CCDS Ot 786.50 09/16/2015 FARZAD ELENA [facility], ALI FACP CCDS Ot V17.49 09/16/2015 FARZAD ELENA [facility], ALI FACP CCDS Ot 729.81 09/16/2015 FARZAD ELENA [facility], [facility] FACP CCDS Ot 786.50 09/16/2015 RAVI LOPEZ QUALITY ASSURANCE QA LAB ANALYST Ot 784.2 09/16/2015 Ot 785.1 09/16/2015 VEL ELENA, GENE Cotter Ot V76.12 09/16/2015 OTTO BAEZ BOARD STACKER Ot 715.36 09/16/2015 RAMANA ELENA, SANJAY P Ot 153.6 09/16/2015 RAMANA ELENA, SANJAY P Ot 728.3 09/16/2015 RAMANA ELENA, SANJAY P Ot 780.79 09/16/2015 RAMANA ELENA, SANJAY P Ot V57.1 09/16/2015 RAMANA ELENA, SANJAY P Ot V57.21 09/16/2015 RAMANA ELENA, SANJAY P Ot V72.63 09/16/2015 RAMANA ELENA, SANJAY P Ot V74.8 09/16/2015 OTTO BAEZ BOARD STACKER Ot 793.11 09/16/2015 RAMANA ELENA, SANJAY P Ot 996.42 09/16/2015 RAMANA ELENA, SANJAY P Ot V43.65 09/16/2015 RAMANA ELENA, SANJAY P Ot V72.84 09/17/2015 CHRISTIAN, DEON L BOARD STACKER Ot I07.1 09/17/2015 BAIMA, DEON L BOARD STACKER Ot I34.0 09/17/2015 BAIMA, DEON L BOARD STACKER Ot I70.0 10/13/2015 BAIMA, DEON L BOARD STACKER Ot I07.1 10/13/2015 BAIMA, DEON L BOARD STACKER Ot I34.0 10/13/2015 BAIMA, DEON L BOARD STACKER Ot I70.0 02/03/2017 Ot 780.2 SYNCOPE AND COLLAPSE 02/03/2017 Ot 780.93 MEMORY LOSS 02/03/2017 Ot 611.71 MASTODYNIA 02/03/2017 Ot V76.12 OTH SCREEN MAMMO-MALIGN NEOPLASM OF ROHIT 02/03/2017 HENRIQUE ELENA, DAMARIS Baptiste Ot 719.46 JOINT PAIN-L/LEG 02/03/2017 FARZAD ELENA FAC, ALI FACP CCDS Ot 244.8 ACQUIRED HYPOTHYROID NEC 02/03/2017 FARZAD ELENA FACC, ALI FACP CCDS Ot 278.00 OBESITY, NOS 02/03/2017 FARZAD ELENA FACC, ALI FACP CCDS Ot 296.7 BIPOL I, MOST RECENT EPISODE (OR CURRENT 02/03/2017 FARZAD SHARMAC, ALI FACP CCDS Ot 309.81 POSTTRAUMATIC STRESS DISORDER 02/03/2017 FARZAD SHARMA, ALI FACP CCDS Ot 716.90 ARTHROPATHY NOS-UNSPEC 02/03/2017 FARZAD SHARMAC, ALI FACP CCDS Ot 786.09 RESPIRATORY ABNORM NEC 02/03/2017 FARZAD ELENA FACC, ALI FACP CCDS Ot 786.50 CHEST PAIN NOS 02/03/2017 FARZAD SHARMA, ALI FACP CCDS Ot V17.49 FAMILY HISTORY OF OTHER CARDIOVASCULAR D 02/03/2017 FARZAD SHARMA, ALI FACP CCDS Ot 729.81 SWELLING OF LIMB 02/03/2017 FARZAD SHARMA, ALI FACP CCDS Ot 786.50 CHEST PAIN NOS 02/03/2017 RAVI LOPEZ QUALITY ASSURANCE QA LAB ANALYST Ot 784.2 SWELLING IN HEAD NECK 02/03/2017 Ot 785.1 PALPITATIONS 02/03/2017 VEL ELENA, GENE Cotter Ot V76.12 OTH SCREEN MAMMO-MALIGN NEOPLASM OF ROHIT 02/03/2017 OTTO BAEZ BOARD STACKER Ot 715.36 LOC OSTEOARTH NOS-L/LEG 02/03/2017 SANJAY [...] MD Ot V74.8 SCREEN-BACTERIAL DIS NEC 02/03/2017 BAEZ OTTO Melva BOARD STACKER Ot 793.11 SOLITARY PULMONARY NODULE 02/03/2017 SANJAY BOLES MD Ot 996.42 DISLOCATION OF PROSTHETIC JOINT 02/03/2017 SANJAY BOLES MD Ot V43.65 KNEE JOINT REPLACEMENT STATUS 02/03/2017 SANJAY BOLES MD Ot V72.84 EXAM PRE-OPERATIVE NOS 02/03/2017 CHRISTIAN DEON L BOARD STACKER Ot I07.1 RHEUMATIC TRICUSPID INSUFFICIENCY 02/03/2017 DEON GONZALES BOARD STACKER Ot I34.0 NONRHEUMATIC MITRAL (VALVE) INSUFFICIENC 02/03/2017 DEON GONZALES BOARD STACKER Ot I70.0 ATHEROSCLEROSIS OF AORTA 02/09/2017 BERNADETTE PPOE TRAUMA REGISTRAR Ot G89.29 OTHER CHRONIC PAIN 02/09/2017 BERNADETTE POPE TRAUMA REGISTRAR Ot M25.78 OSTEOPHYTE, VERTEBRAE 02/09/2017 BERNADETTE POPE TRAUMA REGISTRAR Ot M54.5 LOW BACK PAIN 02/09/2017 BERNADETTE POPE TRAUMA REGISTRAR Ot M54.6 PAIN IN THORACIC SPINE 02/25/2017 BERNADETTE POPE TRAUMA REGISTRAR Ot G89.29 OTHER CHRONIC PAIN 02/25/2017 BERNADETTE POPE TRAUMA REGISTRAR Ot M25.78 OSTEOPHYTE, VERTEBRAE 02/25/2017 BERNADETTE POPE TRAUMA REGISTRAR Ot M54.5 LOW BACK PAIN 02/25/2017 BERNADETTE POPE TRAUMA REGISTRAR Ot M54.6 PAIN IN THORACIC SPINE 05/24/2017 Ot 780.2 SYNCOPE AND COLLAPSE 05/24/2017 Ot 780.93 MEMORY LOSS 05/24/2017 Ot 611.71 MASTODYNIA 05/24/2017 Ot V76.12 OTH SCREEN MAMMO-MALIGN NEOPLASM OF ROHIT 05/24/2017 HENRIQUE ELENA, DAMARIS Baptiste Ot 719.46 JOINT PAIN-L/LEG 05/24/2017 FARZAD ELENA FACC, ALI FACP CCDS Ot 244.8 ACQUIRED HYPOTHYROID NEC 05/24/2017 FARZAD ELENA FACC, ALI FACP CCDS Ot 278.00 OBESITY, NOS 05/24/2017 FARZAD ELENA FACJulio, ALI FACP CCDS Ot 296.7 BIPOL I, MOST RECENT EPISODE (OR CURRENT 05/24/2017 FARZAD ELENA [facility], ALI FACP CCDS Ot 309.81 POSTTRAUMATIC STRESS DISORDER 05/24/2017 FARZAD SHARMA, ALI FACP CCDS Ot 716.90 ARTHROPATHY NOS-UNSPEC 05/24/2017 FARZAD ELENA FACC, ALI FACP CCDS Ot 786.09 RESPIRATORY ABNORM NEC 05/24/2017 FARZAD SHARMA, ALI FACP CCDS Ot 786.50 CHEST PAIN NOS 05/24/2017 FARZAD SHARMA, ALI FACP CCDS Ot V17.49 FAMILY HISTORY OF OTHER CARDIOVASCULAR D 05/24/2017 FARZAD ELENA [facility], ALI FACP CCDS Ot 729.81 SWELLING OF LIMB 05/24/2017 FARZAD SHARMA, ALI FACP CCDS Ot 786.50 CHEST PAIN NOS 05/24/2017 RAVI LOPEZ QUALITY ASSURANCE QA LAB ANALYST Ot 784.2 SWELLING IN HEAD NECK 05/24/2017 Ot 785.1 PALPITATIONS 05/24/2017 VEL ELENA, GENE Cotter Ot V76.12 OTH SCREEN MAMMO-MALIGN NEOPLASM OF ROHIT 05/24/2017 OTTO BAEZ BOARD STACKER Ot 715.36 LOC OSTEOARTH NOS-L/LEG 05/24/2017 SANJAY [...] V74.8 SCREEN-BACTERIAL DIS NEC 05/24/2017 OTTO BAEZ BOARD STACKER Ot 793.11 SOLITARY PULMONARY NODULE 05/24/2017 SANJAY BOLES MD Ot 996.42 DISLOCATION OF PROSTHETIC JOINT 05/24/2017 SANJAY BOLES MD Ot V43.65 KNEE JOINT REPLACEMENT STATUS 05/24/2017 SANJAY BOLES MD Ot V72.84 EXAM PRE-OPERATIVE NOS 05/24/2017 CHRISTIAN DEON Oliva BOARD STACKER Ot I07.1 RHEUMATIC TRICUSPID INSUFFICIENCY 05/24/2017 ISAACAIDE DEON Oliva BOARD STACKER Ot I34.0 NONRHEUMATIC MITRAL (VALVE) INSUFFICIENC 05/24/2017 DEON GONZALES Oliva BOARD STACKER Ot I70.0 ATHEROSCLEROSIS OF AORTA 05/24/2017 TOSHIA SEEMAHALI Duran TRAUMA REGISTRAR Ot G89.29 OTHER CHRONIC PAIN 05/24/2017 TOSHIA SEEMAHALI Duran TRAUMA REGISTRAR Ot M25.78 OSTEOPHYTE, VERTEBRAE 05/24/2017 TOSHIA SEEMAHALI Duran TRAUMA REGISTRAR Ot M54.5 LOW BACK PAIN 05/24/2017 TOSHIA SEEMAHALI Duran TRAUMA REGISTRAR Ot M54.6 PAIN IN THORACIC SPINE 05/24/2017 TOSHIA SEEMAHALI Duran TRAUMA REGISTRAR Ot R22.41 LOCALIZED SWELLING, MASS AND LUMP, RIGHT 06/02/2017 TOSHIA SEEMAHALI Duran TRAUMA REGISTRAR Ot M19.071 PRIMARY OSTEOARTHRITIS, RIGHT ANKLE AND 06/07/2017 BERNADETTE POPE TRAUMA REGISTRAR Ot M19.071 PRIMARY OSTEOARTHRITIS, RIGHT ANKLE AND [...] V72.84 EXAM PRE-OPERATIVE NOS 06/07/2017 DEON GONZALES BOARD STACKER Ot I07.1 RHEUMATIC TRICUSPID INSUFFICIENCY 06/07/2017 DEON GONZALES BOARD STACKER Ot I34.0 NONRHEUMATIC MITRAL (VALVE) INSUFFICIENC 06/07/2017 DEON GONZALES BOARD STACKER Ot I70.0 ATHEROSCLEROSIS OF AORTA 06/07/2017 BERNADETTE POPE TRAUMA REGISTRAR Ot G89.29 OTHER CHRONIC PAIN 06/07/2017 BERNADETTE POPE TRAUMA REGISTRAR Ot M25.78 OSTEOPHYTE, VERTEBRAE 06/07/2017 BERNADETTE POPE TRAUMA REGISTRAR Ot M54.5 LOW BACK PAIN 06/07/2017 BERNADETTE POPE TRAUMA REGISTRAR Ot M54.6 PAIN IN THORACIC SPINE 06/07/2017 BERNADETTE POPE TRAUMA REGISTRAR Ot M79.661 PAIN IN RIGHT LOWER LEG 06/07/2017 BERNADETTE POPE TRAUMA REGISTRAR Ot M19.071 PRIMARY OSTEOARTHRITIS, RIGHT ANKLE AND 06/14/2017 BERNADETTE POPE TRAUMA REGISTRAR Ot M79.661 PAIN IN RIGHT LOWER LEG 06/24/2017 BERNADETTE POPE TRAUMA REGISTRAR Ot M19.071 PRIMARY OSTEOARTHRITIS, RIGHT ANKLE AND 06/29/2017 BERNADETTE POPE TRAUMA REGISTRAR Ot M79.604 PAIN IN RIGHT LEG 06/29/2017 BERNADETTE POPE TRAUMA REGISTRAR Ot R60.0 LOCALIZED EDEMA 07/05/2017 BERNADETTE POPE TRAUMA REGISTRAR Ot G89.29 OTHER CHRONIC PAIN 07/05/2017 BERNADETTE POPE TRAUMA REGISTRAR Ot M25.78 OSTEOPHYTE, VERTEBRAE 07/05/2017 BERNADETTE POPE TRAUMA REGISTRAR Ot M54.5 LOW BACK PAIN 07/05/2017 BERNADETTE POPE TRAUMA REGISTRAR Ot M54.6 PAIN IN THORACIC SPINE 07/18/2017 BERNADETTE POPE TRAUMA REGISTRAR Ot M79.604 PAIN IN RIGHT LEG 07/18/2017 BERNADETTE POPE TRAUMA REGISTRAR Ot R60.0 LOCALIZED EDEMA 07/27/2017 BERNADETTE POPE TRAUMA REGISTRAR Ot M17.11 UNILATERAL PRIMARY OSTEOARTHRITIS, RIGHT 07/27/2017 BERNADETTE POPE TRAUMA REGISTRAR Ot M67.461 GANGLION, RIGHT KNEE 07/27/2017 BERNADETTE POPE TRAUMA REGISTRAR Ot R60.0 LOCALIZED EDEMA 07/27/2017 BERNADETTE POPE TRAUMA REGISTRAR Ot S83.231A COMPLEX TEAR OF MEDIAL MENSC, CURRENT IN 07/27/2017 BERNADETTE POPE TRAUMA REGISTRAR Ot S83.411A SPRAIN OF MEDIAL COLLATERAL LIGAMENT OF 08/03/2017 BERNADETTE POPE Roger TRAUMA REGISTRAR Ot M79.661 PAIN IN RIGHT LOWER LEG 08/03/2017 BERNADETTE POPE Roger TRAUMA REGISTRAR Ot M79.661 PAIN IN RIGHT LOWER LEG 08/12/2017 BERNADETTE POPE Roger TRAUMA REGISTRAR Ot M17.11 UNILATERAL PRIMARY OSTEOARTHRITIS, RIGHT 08/12/2017 BERNADETTE POPE Roger TRAUMA REGISTRAR Ot M67.461 GANGLION, RIGHT KNEE 08/12/2017 BERNADETTE POPE Roger TRAUMA REGISTRAR Ot R60.0 LOCALIZED EDEMA 08/12/2017 BERNADETTE POPE Roger TRAUMA REGISTRAR Ot S83.231A COMPLEX TEAR OF MEDIAL MENSC, CURRENT IN 08/12/2017 BERNADETTE POPE Roger TRAUMA REGISTRAR Ot S83.411A SPRAIN OF MEDIAL COLLATERAL LIGAMENT [...] MD Ot N20.0 CALCULUS OF KIDNEY 10/13/2017 POPE BERNADETTE Roger TRAUMA REGISTRAR Ot G89.29 OTHER CHRONIC PAIN 10/13/2017 POPE SEEMAHALI Duran TRAUMA REGISTRAR Ot M25.78 OSTEOPHYTE, VERTEBRAE 10/13/2017 TOSHIA SEEMAHALI Duran TRAUMA REGISTRAR Ot M54.5 LOW BACK PAIN 10/13/2017 TOSHIA SEEMAHALI N TRAUMA REGISTRAR Ot M54.6 PAIN IN THORACIC SPINE 10/20/2017 MEL MELENDREZ MD Ot M62.81 MUSCLE WEAKNESS (GENERALIZED) 10/20/2017 MEL MELENDREZ MD Ot R25.1 TREMOR, UNSPECIFIED 10/20/2017 MEL MELENDREZ MD Ot R42 DIZZINESS AND GIDDINESS 11/01/2017 MEL MELENDREZ MD Ot M41.85 OTHER FORMS OF SCOLIOSIS, THORACOLUMBAR 11/01/2017 MEL MELENDREZ MD D Ot 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 11/01/2017 PARVIN ELENA, MEL Frye Ot N20.0 CALCULUS OF KIDNEY 12/22/2017 FER MICHELLE MD Ot R19.5 OTHER FECAL ABNORMALITIES 12/22/2017 FER MICHELLE MD Ot R19.7 DIARRHEA, UNSPECIFIED 12/22/2017 FER IMCHELLE MD Ot Z01.818 ENCOUNTER FOR OTHER PREPROCEDURAL EXAMIN 12/22/2017 FER MICHELLE MD Ot R19.5 OTHER FECAL ABNORMALITIES 12/22/2017 FER MICHELLE MD Ot R19.7 DIARRHEA, UNSPECIFIED 12/22/2017 FER MICHELLE MD Ot Z01.818 ENCOUNTER FOR OTHER PREPROCEDURAL EXAMIN 12/22/2017 FER MICHELLE MD Ot R19.5 OTHER FECAL ABNORMALITIES 12/22/2017 FER MICHELLE MD Ot R19.7 DIARRHEA, UNSPECIFIED 12/22/2017 FER MICHELLE MD Ot Z01.818 ENCOUNTER FOR OTHER PREPROCEDURAL EXAMIN 12/23/2017 FER MICHELLE MD Ot R19.5 OTHER FECAL ABNORMALITIES 12/23/2017 FER MICHELLE MD Ot R19.7 DIARRHEA, UNSPECIFIED 12/23/2017 FER IMCHELLE MD Ot Z01.818 ENCOUNTER FOR OTHER PREPROCEDURAL EXAMIN 12/28/2017 FER MICHELLE MD Ot E03.9 HYPOTHYROIDISM, UNSPECIFIED 12/28/2017 FER MICHELLE MD Ot E66.9 OBESITY, UNSPECIFIED 12/28/2017 FER MICHELLE MD Ot E78.00 PURE HYPERCHOLESTEROLEMIA, UNSPECIFIED 12/28/2017 FER MICHELLE MD Ot F32.9 MAJOR DEPRESSIVE DISORDER, SINGLE EPISOD 12/28/2017 FER MICHELLE MD Ot F41.9 ANXIETY DISORDER, UNSPECIFIED 12/28/2017 FER MICHELLE MD Ot F90.9 ATTENTION-DEFICIT HYPERACTIVITY DISORDER 12/28/2017 FER MICHELLE MD Ot G47.00 INSOMNIA, UNSPECIFIED 12/28/2017 FER MICHELLE MD Ot H40.9 UNSPECIFIED GLAUCOMA 12/28/2017 FER MICHELLE MD Ot I10 ESSENTIAL (PRIMARY) HYPERTENSION 12/28/2017 FER MICHELLE MD Ot K21.9 GASTRO-ESOPHAGEAL REFLUX DISEASE WITHOUT 12/28/2017 FER MICHELLE MD, Ot K57.30 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 OR AB 12/28/2017 FER MICHELLE MD, Ot K64.1 SECOND DEGREE HEMORRHOIDS 12/28/2017 FER MICHELLE MD, Ot Z68.41 BODY MASS INDEX (BMI) 40.0-44.9, ADULT 12/28/2017 FER MICHELLE MD, Ot Z79.82 INSTRUMENT TECHNICIAN (CURRENT) USE OF ASPIRIN 12/28/2017 FER MICHELLE MD Ot Z79.899 OTHER INSTRUMENT TECHNICIAN (CURRENT) DRUG THERAPY 12/29/2017 FER MICHELLE MD, Ot E03.9 HYPOTHYROIDISM, UNSPECIFIED 12/29/2017 FER MICHELLE MD Ot E66.9 OBESITY, UNSPECIFIED 12/29/2017 FER MICHELLE MD Ot E78.00 PURE HYPERCHOLESTEROLEMIA, UNSPECIFIED 12/29/2017 FER MICHELLE MD Ot F32.9 MAJOR DEPRESSIVE DISORDER, SINGLE EPISOD 12/29/2017 FER MICHELLE MD Ot F41.9 ANXIETY DISORDER, UNSPECIFIED 12/29/2017 FER MICHELLE MD Ot F90.9 ATTENTION-DEFICIT HYPERACTIVITY DISORDER 12/29/2017 FER MICHELLE MD Ot G47.00 INSOMNIA, UNSPECIFIED 12/29/2017 FER MICHELLE MD Ot H40.9 UNSPECIFIED GLAUCOMA 12/29/2017 FER MICHELLE MD Ot I10 ESSENTIAL (PRIMARY) HYPERTENSION 12/29/2017 FER MICHELLE MD Ot K21.9 GASTRO-ESOPHAGEAL REFLUX DISEASE WITHOUT 12/29/2017 FER MICHELLE MD Ot K57.30 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 OR AB 12/29/2017 FER MICHELLE MD, Ot K64.1 SECOND DEGREE HEMORRHOIDS 12/29/2017 FER MICHELLE MD, Ot Z68.41 BODY MASS INDEX (BMI) 40.0-44.9, ADULT 12/29/2017 FER MICHELLE MD Ot Z79.82 INSTRUMENT TECHNICIAN (CURRENT) USE OF ASPIRIN 12/29/2017 FER MICHELLE MD, Ot Z79.899 OTHER INSTRUMENT TECHNICIAN (CURRENT) DRUG THERAPY 06/23/2018 HENRIQUE ELENA, DAMARIS L Ot 719.46 JOINT PAIN-L/LEG 06/23/2018 FARZAD SHARMA, ALI FACP CCDS Ot 244.8 ACQUIRED HYPOTHYROID NEC 06/23/2018 FARZAD SHARMAC, ALI FACP CCDS Ot 278.00 OBESITY, NOS 06/23/2018 FARZAD ELENA FACC, ALI FACP CCDS Ot 296.7 BIPOL I, MOST RECENT EPISODE (OR CURRENT 06/23/2018 FARZAD ELENA FACC, ALI FACP CCDS Ot 309.81 POSTTRAUMATIC STRESS DISORDER 06/23/2018 FARZAD SHARMA, ALI FACP CCDS Ot 716.90 ARTHROPATHY NOS-UNSPEC 06/23/2018 FARZAD ELENA FACC, ALI FACP CCDS Ot 786.09 RESPIRATORY ABNORM NEC 06/23/2018 FARZAD ELENA FACC, ALI FACP CCDS Ot 786.50 CHEST PAIN NOS 06/23/2018 FARZAD ELENA FACC, ALI FACP CCDS Ot V17.49 FAMILY HISTORY OF OTHER CARDIOVASCULAR D 06/23/2018 FARZAD SHARMA, ALI FACP CCDS Ot 729.81 SWELLING OF LIMB 06/23/2018 FARZAD SHARMA, ALI FACP CCDS Ot 786.50 CHEST PAIN NOS 06/23/2018 RAVI LOPEZ QUALITY ASSURANCE QA LAB ANALYST Ot 784.2 SWELLING IN HEAD NECK 06/23/2018 Ot 785.1 PALPITATIONS 06/23/2018 VEL ELENA, GENE Cotter Ot V76.12 OTH SCREEN MAMMO-MALIGN NEOPLASM OF ROHIT 06/23/2018 OTTO BAEZ BOARD STACKER Ot 715.36 LOC OSTEOARTH NOS-L/LEG 06/23/2018 SANJAY BOLES MD Ot 153.6 MALIG RY ASCEND COLON 06/23/2018 SANJAY BOLES MD Ot 728.3 MUSCLE DISORDERS NEC 06/23/2018 SANJAY BOLES MD Ot 780.79 OTH MALAISE FATIGUE 06/23/2018 SANJAY BOLES MD Ot V57.1 PHYSICAL THERAPY NEC 06/23/2018 SANJAY BOLES MD Ot V57.21 ENCOUNTER FOR OCCUPATIONAL THERAPY 06/23/2018 SANJAY BOLES MD Ot V72.63 PRE-PROCEDURAL LABORATORY EXAMINATION 06/23/2018 RAMANA ELENA, SANJAY Leo Ot V74.8 SCREEN-BACTERIAL DIS NEC 06/23/2018 OTTO BAEZ Melva AMAYA Ot 793.11 SOLITARY PULMONARY NODULE 06/23/2018 RAMANA ELENA, SANJAY Leo Ot 996.42 DISLOCATION OF PROSTHETIC JOINT 06/23/2018 SANJAY BOLES MD Ot V43.65 KNEE JOINT REPLACEMENT STATUS 06/23/2018 RAMANA ELENA, SANJAY Leo Ot V72.84 EXAM PRE-OPERATIVE NOS 06/23/2018 DEON GONZALES BOARD STACKER Ot I07.1 RHEUMATIC TRICUSPID INSUFFICIENCY 06/23/2018 DEON GONZALES BOARD STACKER Ot I34.0 NONRHEUMATIC MITRAL (VALVE) INSUFFICIENC 06/23/2018 DEON GONZALES BOARD STACKER Ot I70.0 ATHEROSCLEROSIS OF AORTA 06/23/2018 BERNADETTE POPE TRAUMA REGISTRAR Ot G89.29 OTHER CHRONIC PAIN 06/23/2018 BERNADETTE POPE TRAUMA REGISTRAR Ot M25.78 OSTEOPHYTE, VERTEBRAE 06/23/2018 BERNADETTE POPE TRAUMA REGISTRAR Ot M54.5 LOW BACK PAIN 06/23/2018 BERNADETTE POPE TRAUMA REGISTRAR Ot M54.6 PAIN IN THORACIC SPINE 06/23/2018 BERNADETTE POPE TRAUMA REGISTRAR Ot M79.661 PAIN IN RIGHT LOWER LEG 06/23/2018 BERNADETTE POPE TRAUMA REGISTRAR Ot M19.071 PRIMARY OSTEOARTHRITIS, RIGHT ANKLE AND 06/23/2018 BERNADETTE POPE TRAUMA REGISTRAR Ot M79.604 PAIN IN RIGHT LEG 06/23/2018 BERNADETTE POPE TRAUMA REGISTRAR Ot R60.0 LOCALIZED EDEMA 06/23/2018 BERNADETTE POPE TRAUMA REGISTRAR Ot M17.11 UNILATERAL PRIMARY OSTEOARTHRITIS, RIGHT 06/23/2018 BERNADETTE POPE TRAUMA REGISTRAR Ot M67.461 GANGLION, RIGHT KNEE 06/23/2018 BERNADETTE POPE TRAUMA REGISTRAR Ot R60.0 LOCALIZED EDEMA 06/23/2018 BERNADETTE POPE TRAUMA REGISTRAR Ot S83.231A COMPLEX TEAR OF MEDIAL MENSC, CURRENT IN 06/23/2018 BERNADETTE POPE TRAUMA REGISTRAR Ot S83.411A SPRAIN OF MEDIAL COLLATERAL LIGAMENT OF 06/23/2018 PARVIN ELENA, MEL Frye Ot M62.81 MUSCLE WEAKNESS (GENERALIZED) 06/23/2018 PARVIN ELENA, MEL Frye Ot R25.1 TREMOR, UNSPECIFIED 06/23/2018 PARVIN ELENA, MEL Frye Ot R42 DIZZINESS AND GIDDINESS 06/23/2018 MEL MELENDREZ MD Ot M41.85 OTHER FORMS OF SCOLIOSIS, THORACOLUMBAR 06/23/2018 MEL MELENDREZ MD Ot 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 06/23/2018 MEL MELENDREZ MD Ot N20.0 CALCULUS OF KIDNEY 06/23/2018 JESSICA ABRAHAM TRAUMA REGISTRAR Ot R22.41 LOCALIZED SWELLING, MASS AND LUMP, RIGHT 06/26/2018 JESSICA ABRAHAM TRAUMA REGISTRAR Ot M79.89 OTHER SPECIFIED SOFT TISSUE DISORDERS 07/17/2018 JESSICA ABRAHAM TRAUMA REGISTRAR Ot M79.89 OTHER SPECIFIED SOFT TISSUE DISORDERS 08/14/2018 FARZAD SHARMAC, ALI FACP CCDS Ot 244.8 ACQUIRED HYPOTHYROID NEC 08/14/2018 FARZAD ELENA FACC, ALI FACP CCDS Ot 278.00 OBESITY, NOS 08/14/2018 FARZAD SHARMAC, ALI FACP CCDS Ot 296.7 BIPOL I, MOST RECENT EPISODE (OR CURRENT 08/14/2018 FARZAD ELENA FACC, ALI FACP CCDS Ot 309.81 POSTTRAUMATIC STRESS DISORDER 08/14/2018 FARZAD SHARMAC, ALI FACP CCDS Ot 716.90 ARTHROPATHY NOS-UNSPEC 08/14/2018 FARZAD ELENA FACC, ALI FACP CCDS Ot 786.09 RESPIRATORY ABNORM NEC 08/14/2018 FARZAD ELENA FACC, ALI FACP CCDS Ot 786.50 CHEST PAIN NOS 08/14/2018 FARZAD ELENA FACC, ALI FACP CCDS Ot V17.49 FAMILY HISTORY OF OTHER CARDIOVASCULAR D 08/14/2018 FARZAD SHARMAC, ALI FACP CCDS Ot 729.81 SWELLING OF LIMB 08/14/2018 FARZAD ELENA FACC, ALI FACP CCDS Ot 786.50 CHEST PAIN NOS 08/14/2018 RAVI LOPEZ QUALITY ASSURANCE QA LAB ANALYST Ot 784.2 SWELLING IN HEAD NECK 08/14/2018 Ot 785.1 PALPITATIONS 08/14/2018 VEL ELENA, GENE Cotter Ot V76.12 OTH SCREEN MAMMO-MALIGN NEOPLASM OF ROHIT 08/14/2018 OTTO BAEZ BOARD STACKER Ot 715.36 LOC OSTEOARTH NOS-L/LEG 08/14/2018 SANJAY BOLES MD Ot 153.6 MALIG RY ASCEND COLON 08/14/2018 SANJAY BOLES MD Ot 728.3 MUSCLE DISORDERS NEC 08/14/2018 SANJAY BOLES MD Ot 780.79 OTH MALAISE FATIGUE 08/14/2018 SANJAY BOLES MD Ot V57.1 PHYSICAL THERAPY NEC 08/14/2018 SANJAY BOLES MD Ot V57.21 ENCOUNTER FOR OCCUPATIONAL THERAPY 08/14/2018 SANJAY BOLES MD Ot V72.63 PRE-PROCEDURAL LABORATORY EXAMINATION 08/14/2018 SANJAY BOLES MD Ot V74.8 SCREEN-BACTERIAL DIS NEC 08/14/2018 OTTO BAEZ BOARD STACKER Ot 793.11 SOLITARY PULMONARY NODULE 08/14/2018 SANJAY BOLES MD Ot 996.42 DISLOCATION OF PROSTHETIC JOINT 08/14/2018 SANJAY BOLES MD Ot V43.65 KNEE JOINT REPLACEMENT STATUS 08/14/2018 SANJAY BOLES MD Ot V72.84 EXAM PRE-OPERATIVE NOS 08/14/2018 DEON GONZALES BOARD STACKER Ot I07.1 RHEUMATIC TRICUSPID INSUFFICIENCY 08/14/2018 DEON GONZALES BOARD STACKER Ot I34.0 NONRHEUMATIC MITRAL (VALVE) INSUFFICIENC 08/14/2018 DEON GONZALES BOARD STACKER Ot I70.0 ATHEROSCLEROSIS OF AORTA 08/14/2018 BERNADETTE POPE TRAUMA REGISTRAR Ot G89.29 OTHER CHRONIC PAIN 08/14/2018 BERNADETTE POPE TRAUMA REGISTRAR Ot M25.78 OSTEOPHYTE, VERTEBRAE 08/14/2018 BERNADETTE POPE TRAUMA REGISTRAR Ot M54.5 LOW BACK PAIN 08/14/2018 BERNADETTE POPE TRAUMA REGISTRAR Ot M54.6 PAIN IN THORACIC SPINE 08/14/2018 BERNADETTE POPE TRAUMA REGISTRAR Ot M79.661 PAIN IN RIGHT LOWER LEG 08/14/2018 BERNADETTE POPE TRAUMA REGISTRAR Ot M19.071 PRIMARY OSTEOARTHRITIS, RIGHT ANKLE AND 08/14/2018 BERNADETTE POPE TRAUMA REGISTRAR Ot M79.604 PAIN IN RIGHT LEG 08/14/2018 BERNADETTE POPE TRAUMA REGISTRAR Ot R60.0 LOCALIZED EDEMA 08/14/2018 BERNADETTE POPE TRAUMA REGISTRAR Ot M17.11 UNILATERAL PRIMARY OSTEOARTHRITIS, RIGHT 08/14/2018 BERNADETTE POPE TRAUMA REGISTRAR Ot M67.461 GANGLION, RIGHT KNEE 08/14/2018 BERNADETTE POPE Roger TRAUMA REGISTRAR Ot R60.0 LOCALIZED EDEMA 08/14/2018 BERNADETTE POPE Roger TRAUMA REGISTRAR Ot S83.231A COMPLEX TEAR OF MEDIAL MENSC, CURRENT IN 08/14/2018 BERNADETTE POPE Roger TRAUMA REGISTRAR Ot S83.411A SPRAIN OF MEDIAL COLLATERAL LIGAMENT OF 08/14/2018 PARVIN ELENA, MEL Frye Ot M62.81 MUSCLE WEAKNESS (GENERALIZED) 08/14/2018 PARVIN ELENA, MEL Frye Ot R25.1 TREMOR, UNSPECIFIED 08/14/2018 MEL MELENDREZ MD Ot R42 DIZZINESS AND GIDDINESS 08/14/2018 PARVIN ELENA, MEL Frye Ot M41.85 OTHER FORMS OF SCOLIOSIS, THORACOLUMBAR 08/14/2018 MEL MELENDREZ MD Ot 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 08/14/2018 PARVIN ELENA, MEL Frye Ot N20.0 CALCULUS OF KIDNEY 08/14/2018 JESSICA ABRAHAM TRAUMA REGISTRAR Ot M79.89 OTHER SPECIFIED SOFT TISSUE DISORDERS 09/11/2018 FARZAD ELENA FACC, ONELIA FACP CCDS Ot 244.8 ACQUIRED HYPOTHYROID NEC 09/11/2018 FARZAD ELENA FACC, ALI FACP CCDS Ot 278.00 OBESITY, NOS 09/11/2018 FARZAD ELENA FACC, ALI FACP CCDS Ot 296.7 BIPOL I, MOST RECENT EPISODE (OR CURRENT 09/11/2018 FARZAD ELENA FACC, ALI FACP CCDS Ot 309.81 POSTTRAUMATIC STRESS DISORDER 09/11/2018 FARZAD ELENA FACC, ALI FACP CCDS Ot 716.90 ARTHROPATHY NOS-UNSPEC 09/11/2018 FARZAD ELENA FACC, ALI FACP CCDS Ot 786.09 RESPIRATORY ABNORM NEC 09/11/2018 FARZAD ELENA FACC, ALI FACP CCDS Ot 786.50 CHEST PAIN NOS 09/11/2018 FARZAD ELENA FACC, ALI FACP CCDS Ot V17.49 FAMILY HISTORY OF OTHER CARDIOVASCULAR D 09/11/2018 FARZAD ELENA FACC, ALI FACP CCDS Ot 729.81 SWELLING OF LIMB 09/11/2018 FARZAD ELENA FACC, ONELIA FACP CCDS Ot 786.50 CHEST PAIN NOS 09/11/2018 RAVI LOPEZ QUALITY ASSURANCE QA LAB ANALYST Ot 784.2 SWELLING IN HEAD NECK 09/11/2018 Ot 785.1 PALPITATIONS 09/11/2018 VEL ELENA, GENE Cotter Ot V76.12 OTH SCREEN MAMMO-MALIGN NEOPLASM OF ROHIT 09/11/2018 OTTO BAEZ BOARD STACKER Ot 715.36 LOC OSTEOARTH NOS-L/LEG 09/11/2018 RAMANA ELENA, SANJAY Leo Ot 153.6 MALIG RY ASCEND COLON 09/11/2018 RAMANA ELENA, SANJAY Leo Ot 728.3 MUSCLE DISORDERS NEC 09/11/2018 RAMANA ELENA, SANJAY Leo Ot 780.79 OTH MALAISE FATIGUE 09/11/2018 SANJAY BOLES MD Ot V57.1 PHYSICAL THERAPY NEC 09/11/2018 SANJAY BOLES MD Ot V57.21 ENCOUNTER FOR OCCUPATIONAL THERAPY 09/11/2018 SANJAY BOLES MD Ot V72.63 PRE-PROCEDURAL LABORATORY EXAMINATION 09/11/2018 RAMANA ELENA, SANJAY Leo Ot V74.8 SCREEN-BACTERIAL DIS NEC 09/11/2018 OTTO BAEZ BOARD STACKER Ot 793.11 SOLITARY PULMONARY NODULE 09/11/2018 RAMANA ELNEA, SANJAY Leo Ot 996.42 DISLOCATION OF PROSTHETIC JOINT 09/11/2018 SANJAY BOLES MD Ot V43.65 KNEE JOINT REPLACEMENT STATUS 09/11/2018 SANJAY BOLES MD Ot V72.84 EXAM PRE-OPERATIVE NOS 09/11/2018 DEON GONZALES BOARD STACKER Ot I07.1 RHEUMATIC TRICUSPID INSUFFICIENCY 09/11/2018 DEON GONZALES BOARD STACKER Ot I34.0 NONRHEUMATIC MITRAL (VALVE) INSUFFICIENC 09/11/2018 DEON GONZALES BOARD STACKER Ot I70.0 ATHEROSCLEROSIS OF AORTA 09/11/2018 BERNADETTE POPE TRAUMA REGISTRAR Ot G89.29 OTHER CHRONIC PAIN 09/11/2018 BERNADETTE POPE TRAUMA REGISTRAR Ot M25.78 OSTEOPHYTE, VERTEBRAE 09/11/2018 BERNADETTE POPE TRAUMA REGISTRAR Ot M54.5 LOW BACK PAIN 09/11/2018 BERNADETTE POPE APRN Ot M54.6 PAIN IN THORACIC SPINE 09/11/2018 BERNADETTE POPE TRAUMA REGISTRAR Ot M79.661 PAIN IN RIGHT LOWER LEG 09/11/2018 BERNADETTE POPE Roger TRAUMA REGISTRAR Ot M19.071 PRIMARY OSTEOARTHRITIS, RIGHT ANKLE AND 09/11/2018 BERNADETTE POPE Roger TRAUMA REGISTRAR Ot M79.604 PAIN IN RIGHT LEG 09/11/2018 BERNADETTE POPE Roger TRAUMA REGISTRAR Ot R60.0 LOCALIZED EDEMA 09/11/2018 SEEMA POPEHALI Duran TRAUMA REGISTRAR Ot M17.11 UNILATERAL PRIMARY OSTEOARTHRITIS, RIGHT 09/11/2018 POPE SEEMAHALI Duran TRAUMA REGISTRAR Ot M67.461 GANGLION, RIGHT KNEE 09/11/2018 POPE BERNADETTE Roger TRAUMA REGISTRAR Ot R60.0 LOCALIZED EDEMA 09/11/2018 BERNADETTE POPE Roger TRAUMA REGISTRAR Ot S83.231A COMPLEX TEAR OF MEDIAL MENSC, CURRENT IN 09/11/2018 POPE BERNADETTE Roger TRAUMA REGISTRAR Ot S83.411A SPRAIN OF MEDIAL COLLATERAL LIGAMENT OF 09/11/2018 PARVIN ELENA, MEL Frye Ot M62.81 MUSCLE WEAKNESS (GENERALIZED) 09/11/2018 PARVIN ELENA, MEL Frye Ot R25.1 TREMOR, UNSPECIFIED 09/11/2018 MEL MELENDREZ MD Ot R42 DIZZINESS AND GIDDINESS 09/11/2018 PARVIN ELENA, MEL Frye Ot M41.85 OTHER FORMS OF SCOLIOSIS, THORACOLUMBAR 09/11/2018 MEL MELENDREZ MD Ot 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 09/11/2018 MEL MELENDREZ MD Ot N20.0 CALCULUS OF KIDNEY 09/11/2018 JESSICA ABRAHAM TRAUMA REGISTRAR Ot M79.89 OTHER SPECIFIED SOFT TISSUE DISORDERS 09/18/2018 JESSICA ABRAHAM TRAUMA REGISTRAR Ot N20.0 CALCULUS OF KIDNEY 09/27/2018 FARZAD ELENA FACC, ALI FACP CCDS Ot R00.2 PALPITATIONS 09/27/2018 FARZAD SHARMAC, ALI FACP CCDS Ot R06.09 OTHER FORMS OF DYSPNEA 10/13/2018 JESSICA ABRAHAM TRAUMA REGISTRAR Ot N20.0 CALCULUS OF KIDNEY 10/23/2018 FARZAD SHARMAC, ALI FACP CCDS Ot R00.2 PALPITATIONS 10/23/2018 FARZAD SHARMAC, ALI FACP CCDS Ot R06.09 OTHER FORMS OF DYSPNEA 11/10/2018 FABIEN ABRAHMAA M TRAUMA REGISTRAR Ot M47.816 SPONDYLOSIS W/O MYELOPATHY OR RADICULOPA 11/10/2018 LEIGHJESSICA TRAUMA REGISTRAR Ot M51.36 OTHER INTERVERTEBRAL DISC DEGENERATION, 11/10/2018 LEIGH JESSICA Churchill TRAUMA REGISTRAR Ot M85.88 OTH DISRD OF BONE DENSITY AND STRUCTURE, 11/15/2018 LEIGHJESSICA TRAUMA REGISTRAR Ot M47.816 SPONDYLOSIS W/O MYELOPATHY OR RADICULOPA 11/15/2018 LEIGHJESSICA TRAUMA REGISTRAR Ot M51.36 OTHER INTERVERTEBRAL DISC DEGENERATION, 11/15/2018 LEIGH JESSICA Churchill TRAUMA REGISTRAR Ot M85.88 OTH DISRD OF BONE DENSITY AND STRUCTURE, 11/22/2018 LEIGHJESSICA TRAUMA REGISTRAR Ot M47.816 SPONDYLOSIS W/O MYELOPATHY OR RADICULOPA 11/22/2018 LEIGHJESSICA TRAUMA REGISTRAR Ot M48.061 SPINAL STENOSIS, LUMBAR REGION WITHOUT N 11/22/2018 JESSICA ABRAHAM TRAUMA REGISTRAR Ot M51.36 OTHER INTERVERTEBRAL DISC DEGENERATION, 11/22/2018 LEIGHJESSICA TRAUMA REGISTRAR Ot W19.XXXA UNSPECIFIED FALL, INITIAL ENCOUNTER Procedures Code [place] [address] PAP SMEAR 05/01/2012 19195 ROUTINE VENIPUNCTURE 09/06/2012 00371 CMP 09/06/2012 90330 LIPID PANEL 09/06/2012 8498002 GFR CALC (RESULT ONLY) 09/06/2012 52880 TSH 09/06/2012 67745 XRAY HIP LEFT UNILATERAL MIN 2 VIEWS 03/14/2014 03445 XRAY KNEE LEFT, 1 OR 2 VIEWS 03/14/2014 81.54 TOTAL KNEE REPLACEMENT 07/17/2014 00.81 KAHLIL OF KNEE REPLACEMENT, TIBIAL COMPON 08/07/2014 00.82 KAHLIL OF KNEE REPLACEMENT, FEMORAL COMPO 08/07/2014 Results Test Result Range CULTURE, URINE - 10/14/18 16:33 CULTURE, URINE, ROUTINE SEE NOTE NRG CULTURE, URINE - 10/20/18 17:20 CULTURE, URINE, ROUTINE SEE NOTE NRG Encounters ACCT No. Visit Date/Time Discharge Status Pt. Type Provider Facility Loc./Unit Complaint [id number] 10/20/2018 15:50:00 10/20/2018 23:59:59 [facility] Outpatient [facility] [id number] 10/20/2018 17:20:00 Document Registration [id number] 10/14/2018 16:20:00 Document Registration [id number] 11/21/2018 14:05:00 11/21/2018 23:59:59 CLS Outpatient JESSICA ABRAHAM APRN [facility] RAD DISC DEGENERATION , LUMBAR REGION [id number] 11/14/2018 16:15:00 11/14/2018 23:59:59 CLS Preadmit HUY LINDSAY MD [facility] RAD HEMATURIA [id number] 11/09/2018 15:19:00 11/09/2018 23:59:59 CLS Outpatient JESSICA ABRAHAM APRN [facility] RAD LOW BACK PAIN [id number] 10/24/2018 12:00:00 10/24/2018 23:59:59 CLS Preadmit FARZAD ELENA FACC, ALI FACP CCDS [facility] CATH CAROTID ARTERIAL DISEASE [id number] 09/26/2018 10:59:00 09/26/2018 23:59:59 CLS Outpatient FARZAD ELENA FACC, ALI FACP CCDS [facility] CARD [address]RE[address], PALPITATIONS [id number] 09/18/2018 15:42:00 09/18/2018 23:59:59 CLS Outpatient JESSICA ABRAHAM APRN [facility] RAD LLQ PAIN [id number] 09/01/2018 13:49:00 09/01/2018 23:59:59 CLS Preadmit FARZAD ELENA FACC, ALI FACP CCDS [facility] CARD [address]RE[address], PALPITATIONS [id number] 08/30/2018 15:41:00 08/30/2018 23:59:59 CLS Preadmit JESSICA ABRAHAM APRN [facility] REHAB GENERAL WEAKNESS; RECURRENT FALLS; OA OF KNEES [id number] 06/23/2018 10:08:00 06/23/2018 23:59:59 CLS Outpatient JESSICA ABRAHAM APRN [facility] RAD PAIN IN RIGHT KNEE [id number] 12/28/2017 10:04:00 12/28/2017 15:00:00 DIS Outpatient FER MICHELLE MD [facility] ENDO OCCULT BLOOD STOOL/ DIARRHEA [id number] 12/22/2017 14:00:00 12/22/2017 14:48:00 DIS Outpatient FER MICHELLE MD [facility] PREOP COLONOSCOPY [id number] 10/04/2017 13:52:00 10/04/2017 23:59:59 CLS Outpatient MEL MELENDREZ MD [facility] RAD M40.292 [id number] 09/20/2017 12:35:00 09/20/2017 23:59:59 CLS Outpatient MEL MELENDREZ MD [facility] RAD MUSCLE WEAKNESS [id number] 07/05/2017 15:10:00 07/05/2017 23:59:59 CLS Outpatient BERNADETTE POPE TRAUMA REGISTRAR [facility] RAD M25.561 PAIN IN RIGHT KNEE [id number] 06/07/2017 15:15:00 06/07/2017 23:59:59 CLS Outpatient BERNADETTE POPE TRAUMA REGISTRAR [facility] RAD M79.604 [id number] 06/01/2017 16:32:00 06/01/2017 23:59:59 CLS Outpatient BERNADETTE POPE TRAUMA REGISTRAR [facility] RAD M79.661 [id number] 05/24/2017 12:20:00 05/24/2017 23:59:59 CLS Outpatient BERNADETTE POPE TRAUMA REGISTRAR [facility] RAD PAIN IN RIGHT LOWER LEG M79.661 [id number] 02/03/2017 15:38:00 02/03/2017 23:59:59 CLS Outpatient BERNADETTE POPE TRAUMA REGISTRAR [facility] RAD CHRONIC BACK PAIN [id number] 09/16/2015 14:19:00 09/16/2015 23:59:59 CLS Outpatient DEON GONZALES [facility] CARD CAD,MILD MITRAL REGUITATION [id number] 08/07/2014 06:00:00 08/10/2014 10:25:00 DIS Inpatient SANJAY BOLES MD [facility] SURGICAL MULTIPLE FALLS [id number] 08/08/2014 11:12:00 08/08/2014 23:59:59 CLS Preadmit SANJAY BOLES MD [facility] REHAB [id number] 08/05/2014 06:01:00 08/05/2014 23:59:59 CLS Outpatient SANJAY BOLES MD [facility] PREOP REVISION TOTAL KNEE [id number] 07/31/2014 02:55:00 08/02/2014 19:06:00 DIS Inpatient MEL MELENDREZ MD [facility] SURGICAL CELLULITIS L LEG;S/ P L KNEE REPLACEMENT [id number] 07/24/2014 08:13:00 07/24/2014 09:09:00 DIS Emergency STEVIE SALGUERO MD [facility] ER FALL/KNEE PAIN [id number] 07/17/2014 08:35:00 07/20/2014 11:46:00 DIS Inpatient SANJAY BOLES MD [facility] SURGICAL LEFT KNEE OSTEOARTHRITIS [id number] 07/15/2014 14:08:00 07/15/2014 23:59:59 CLS Outpatient OTTO BAEZP [facility] RAD RIGHT SUPRAHILAR NODULE ON PREOP CHEST XRAY [id number] 07/09/2014 10:00:00 07/09/2014 23:59:59 CLS Outpatient SANJAY BOLES MD [facility] PREOP LEFT KNEE OSTEOARTHRITIS [id number] 06/12/2014 14:12:00 06/12/2014 23:59:59 CLS Outpatient OTTO BAEZ BOARD STACKER [facility] RAD LT KNEE DJD [id number] 05/09/2014 19:45:00 05/09/2014 21:19:00 DIS Emergency SERGIO RIGGS DO [facility] ER BLURRY VISION L EYE ONLY [id number] 11/29/2013 20:55:00 11/30/2013 07:00:00 DIS Outpatient RAVI LOPEZ QUALITY ASSURANCE QA LAB ANALYST [facility] SLEEP SNORING,UNSPEC SLEEP DISTURBANCE [id number] 11/15/2013 09:09:00 11/15/2013 23:59:59 CLS Outpatient VEL ELENA, GENE Cotter [facility] RAD SCREENING [id number] 07/23/2013 09:17:00 09/23/2013 00:01:00 DIS Outpatient DEON GONZALES BOARD STACKER [facility] CARD PALPITATIONS [id number] 08/30/2013 10:42:00 08/30/2013 23:59:59 CLS Outpatient RAVI LOPEZ QUALITY ASSURANCE QA LAB ANALYST [facility] RAD NECK NODES [id number] 08/10/2013 09:39:00 08/10/2013 23:59:59 CLS Outpatient FARZAD ELENA FACC, ONELIA SHARMAP CCDS [facility] RAD DYSPNEA,CP, LEG SWELLING [id number] 07/13/2013 09:19:00 07/13/2013 23:59:59 CLS Outpatient FARZAD ELENA FACJulio, ALI FACP CCDS [facility] RAD DYSPNEA,CP, LEG SWELLING [id number] 06/19/2013 00:35:00 06/19/2013 17:20:00 DIS Outpatient ZAHIDA ELENA, KARINA Boyce [facility] CATH CHEST PAIN [id number] 02/21/2013 13:52:00 02/21/2013 23:59:59 CLS Outpatient HENRIQUE ELENA, DAMARIS Baptiste [facility] RAD L KNEE PAIN [id number] 09/24/2013 10:00:00 Document Registration [id number] 09/25/2012 09:40:00 Document Registration [id number] 12/16/2011 07:46:00 Document Registration [id number] 05/03/2011 10:01:00 Document Registration [id number] 02/04/2011 16:48:00 Document Registration [id number] 12/31/2010 07:16:00 Document Registration [id number] 08/24/2010 08:41:00 Document Registration [id number] 07/21/2010 22:59:00 Document Registration [id number] 04/02/2010 09:18:00 Document Registration [id number] 10/20/2009 11:25:00 Document Registration [id number] 03/14/2014 13:29:00 03/14/2014 23:59:59 CLS Outpatient GRADY RODAS APRN [id number] 03/14/2014 13:29:00 03/14/2014 23:59:59 CLS Outpatient GRADY RODAS APRN [id number] 09/06/2012 09:48:00 09/06/2012 23:59:59 CLS Outpatient GRADY RODAS APRN [id number] 03/30/2012 13:14:00 03/30/2012 23:59:59 CLS Outpatient ROBBY HERNANDEZ DO
[2018-11-30 10:03] LABS: BASOPHILS % (AUTO) 0 % (0-10); EOSINOPHILS # (AUTO) 0.2 10^3/uL (0.0-0.3); EOSINOPHILS % (AUTO) 3 % (0-10); HEMATOCRIT 36 % (35-52); HEMOGLOBIN 11.6 G/DL (11.5-16.0); LYMPHOCYTES # (AUTO) 0.6 X 10^3 (1.0-4.0); LYMPHOCYTES % (AUTO) 9 % (12-44); MEAN CORPUSCULAR HEMOGLOBIN 27 PG (25-34); MEAN CORPUSCULAR HGB CONC 32 G/DL (32-36); MEAN CORPUSCULAR VOLUME 83 FL (80-99); MEAN PLATELET VOLUME 9.5 FL (7.4-10.4); MONOCYTES # (AUTO) 0.6 X 10^3 (0.0-1.0); MONOCYTES % (AUTO) 9 % (0-12); NEUTROPHILS # (AUTO) 5.3 X 10^3 (1.8-7.8); NEUTROPHILS % (AUTO) 79 % (42-75); PLATELET COUNT 286 10^3/uL (130-400); WHITE BLOOD COUNT 6.7 10^3/uL (4.3-11.0)
[2018-11-30 10:28] LABS: ALANINE AMINOTRANSFERASE 20 U/L (0-55); ALBUMIN 3.7 GM/DL (3.2-4.5); ALKALINE PHOSPHATASE 146 U/L (40-136); BILIRUBIN,TOTAL 0.5 MG/DL (0.1-1.0); BUN/CREATININE RATIO 14; CALCIUM 9.5 MG/DL (8.5-10.1); CARBON DIOXIDE 25 MMOL/L (21-32); CHLORIDE 95 MMOL/L (98-107); CREATININE SERUM 0.71 MG/DL (0.60-1.30); GFR ESTIMATED > 60; GLUCOSE 106 MG/DL (70-105); MAGNESIUM 1.6 MG/DL (1.8-2.4); POTASSIUM 3.9 MMOL/L (3.6-5.0); SODIUM 129 MMOL/L (135-145); TOTAL PROTEIN 6.3 GM/DL (6.4-8.2)
--- NOTE | 2018-11-30 10:44 | ED Chest Pain ---
General Chief Complaint: Dizziness/Syncope Stated Complaint: DIZZY Source: patient, EMS Exam Limitations: no limitations History of Present Illness Date Seen by Provider: November 30, 2018 Time Seen by Provider: 09:38 Initial Comments Patient presents to ER by private conveyance with chief complaint of EMS with chief complaint of dizziness, nausea, feeling unwell for the past few days progressively worsening. Feeling very tired. She says couple months ago she was diagnosed with UTI was treated with antibiotics and came back. She has been followed with Dr. Bradford, urology and he did a CT but she has an appointment to get the results for that. She's not having a cough shortness of breath chest pain. She does have some discomfort in her suprapubic region. She's noticed some blood in her urine last few days. Her primary care doctor put her on steroids recently.She has not had ureteroscopy. Bowels are normal. Allergies and Home Medications Allergies Uncoded Allergies: MERCURY (Allergy, Mild, 08/24/10) Home Medications Alprazolam 1 Mg Tablet, 1 MG PO TID, (Reported) Biotin 1,000 Mcg Tablet, 1,000 MCG PO DAILY @ 1200, (Reported) Calcium Carb/Vit D3/Minerals 1 Each Tab.chew, 2,400 MG PO DAILY @ 1200, ( Reported) TAKES 2 (1200MG) TABLETS Cephalexin 500 Mg Capsule, 500 MG PO BID Prescribed by: VERÓNICA MARTINEZ on 11/30/18 1212 Cholecalciferol (Vitamin D3) 50,000 Unit Capsule, 50,000 UNIT PO WEEK, (Reported ) Chromium Picolinate 1,000 Mcg Tablet, 1,000 MCG PO DAILY @ 1200, (Reported) Chromium/Herbal Complex No.238 1 Each Tablet, 2 TAB PO DAILY @ 1200, (Reported) Citalopram Hydrobromide 40 Mg Tablet, 40 MG PO DAILY, (Reported) Dextroamphetamine/Amphetamine 30 Mg Tablet, 60 MG PO DAILY, (Reported) take 2 (30mg) tabs Dextroamphetamine/Amphetamine 30 Mg Tablet, 30 MG PO DAILY@1200, (Reported) Dorzolamide HCl/Timolol Maleat 10 Ml Drops, 1 DROP OU BID, (Reported) Folic Acid 0.4 Mg Tablet, 800 MCG PO DAILY @ 1200, (Reported) TAKES 2 (400MCG) TABLETS Ginkgo Biloba Extract 120 Mg Capsule, 240 MG PO DAILY @ 1200, (Reported) Glucosamine Sulfate 1,000 Mg Capsule, 2,000 MG PO DAILY @ 1200, (Reported) Lamotrigine 200 Mg Tab, 200 MG PO BID, (Reported) Latanoprost 2.5 Ml Drops, 1 DROPS OU HS, (Reported) Naltrexone HCl/Bupropion HCl 1 Each Tablet.er, 2 EACH PO BID, (Reported) Naproxen 500 Mg Tablet, 500 MG PO BID, (Reported) [place]-3S/Dha/Epa/Fish Oil 1 Each Capsule, 3,600 MG PO DAILY @ 1200, (Reported) TAKES 3 (1200MG) CAPSULES Oxcarbazepine 300 Mg Tablet, 600 MG PO HS, (Reported) Propranolol HCl 80 Mg Cap.sa.24h, 80 MG PO DAILY, (Reported) Simvastatin 20 Mg Tablet, 20 MG PO DAILY, (Reported) Sodium Chloride 45 Ml [place], 1 SPRAY NS HS, (Reported) Trazodone HCl 150 Mg Tablet, 300 MG PO HS, (Reported) take 2 (150mg) tab [Nature-Throid 1GRAIN] , 2 GR PO DAILY, (Reported) TAKES 2 (1GRAIN) TABLETS [T-3 45MCG] , 1 CAP PO BID, (Reported) COMPOUND FROM ALBORN DRUG Patient Home Medication List Home Medication List Reviewed: Yes Review of Systems Review of Systems Constitutional: No chills, No fever; malaise, weakness EENTM: No Blurred Vision, No Double Vision Respiratory: Denies Cough, Denies Shortness of Air Cardiovascular: Denies Chest Pain, Denies Edema, Denies Lightheadedness Gastrointestinal: Denies Abdomen Distended; Abdominal Pain (suprapubic region) ; Denies Constipated, Denies Diarrhea; Nausea, Poor Fluid Intake; Denies Vomiting Genitourinary: Denies Burning, Denies Discharge Musculoskeletal: No back pain, No joint pain Skin: No pruritus, No rash Psychiatric/Neurological: Denies Headache, Denies Numbness Past [id number]-Nnjhnt Hx Patient Social History Alcohol Use: Denies Use Recreational Drug Use: No Smoking Status: Never a Smoker Recent Hopitalizations: No Immunizations Up To Date Tetanus Booster (TDap): More than 5yrs Date of Pneumonia Vaccine: Aug 01, 2008 Date of Influenza Vaccine: May 19, 2013 Seasonal Allergies Seasonal Allergies: Yes Past Medical History Hysterectomy Hypertension Reproductive Disorders: No Sexually Transmitted Disease: No Chronic Diarrhea Arthritis, Chronic Back Pain Hypothyroidsim Glaucoma Uterine ADD/ADHD, Anxiety, Bipolar, Depression Adverse Reaction/Blood Tranf: No Family Medical History Alcoholism 03 FATHER, Age:92 03 MOTHER, , Age:60 years and older 09 BROTHER, Age:67 09 BROTHER, , Age:40's - 50 09 BROTHER, Age:63 09 BROTHER, Age:58 09 SISTER, Age:56 Cancer 03 MOTHER, , Age:60 years and older 09 BROTHER, , Age:40's - 50 Cataract 03 FATHER, Age:92 Family history: Arthritis 09 SISTER, Age:56 Family history: Gastrointestinal disease 09 BROTHER, Age:58 Family history: Thyroid disorder 09 SISTER, Age:56 Headache 03 FATHER, Age:92 03 MOTHER, , Age:60 years and older 09 BROTHER, Age:67 09 BROTHER, , Age:40's - 50 09 BROTHER, Age:63 09 BROTHER, Age:58 09 SISTER, Age:56 History of drug abuse Visual impairment No Family History of: Abdominal aortic aneurysm Benewah's disease Aphasia Cancer of colon Chest pain Congenital heart disease Congestive heart failure Cystic fibrosis Dementia Dysphagia Family history: Allergy Family history: Alzheimer's disease Family history: Asthma Family history: Breast disease Family history: Cardiovascular disease Family history: Coronary thrombosis Family history: Diabetes mellitus Family history: Glaucoma Family history: Hypertension Family history: Osteoporosis Hearing loss Heart disease Hereditary disease History of - anemia History of - respiratory disease Human immunodeficiency virus (HIV) seropositivity Hypercholesterolemia Infertile Kidney disease Malignant neoplasm of lung Myocardial infarction Parkinson's disease Prostate cancer Psychotic disorder Seizure disorder Stroke Tuberculosis Physical Exam Vital Signs Vital Signs - First Documented 11/30/18 11/30/18 09:40 11:54 Temp 97.9 Pulse 56 Resp 20 B/P (MAP) 164/81 (108) Pulse Ox 91 O2 Delivery Nasal Cannula O2 Flow Rate 2.00 Capillary Refill : Height, Weight, BMI Height: 5'5.00" Weight: 269lbs. 0.0oz. [id number]; 44.8 BMI Method:Stated General Appearance: No Apparent Distress, Obese HEENT: PERRL/EOMI, Pharynx Normal (dry oral mucosa); No Moist Mucous Membranes Neck: Full Range of Motion, Normal Inspection Respiratory: Normal Breath Sounds, No Accessory Muscle Use, No Respiratory Distress Cardiovascular: No Edema, Normal Peripheral Pulses Gastrointestinal: Normal Bowel Sounds, No Organomegaly, No Pulsatile Mass, Soft , Tenderness (mild discomfort in the suprapubic region), Other (negative for rigidity, psoas sign or other signs of mesenteric) Extremity: Normal Capillary Refill, Normal Inspection, Non Tender, No Pedal Edema Neurologic/Psychiatric: Alert, Oriented x3 Skin: Normal Color, Warm/Dry Focused Exam Lactate Level 11/30/18 10:00: Lactic Acid Level 0.89 Lactic Acid Level Laboratory Tests Test 11/30/18 10:00 Lactic Acid Level 0.89 MMOL/L (0.50-2.00) Progress/Results/Core Measures Results/Orders Lab Results Laboratory Tests Test 11/30/18 09:45 11/30/18 10:00 11/30/18 11:10 Range/Units White Blood Count 6.7 4.3-11.0 10^3/uL Red Blood Count 4.35 4.35-5.85 10^6/uL Hemoglobin 11.6 11.5-16.0 G/DL Hematocrit 36 35-52 % Mean Corpuscular Volume 83 80-99 FL Mean Corpuscular Hemoglobin 27 25-34 PG Mean Corpuscular Hemoglobin Concent 32 32-36 G/DL Red Cell Distribution Width 14.0 10.0-14.5 % Platelet Count 286 130-400 10^3/uL Mean Platelet Volume 9.5 7.4-10.4 FL Neutrophils (%) (Auto) 79 H 42-75 % Lymphocytes (%) (Auto) 9 L 12-44 % Monocytes (%) (Auto) 9 0-12 % Eosinophils (%) (Auto) 3 0-10 % Basophils (%) (Auto) 0 0-10 % Neutrophils # (Auto) 5.3 1.8-7.8 X 10^3 Lymphocytes # (Auto) 0.6 L 1.0-4.0 X 10^3 Monocytes # (Auto) 0.6 0.0-1.0 X 10^3 Eosinophils # (Auto) 0.2 0.0-0.3 10^3/uL Basophils # (Auto) 0.0 0.0-0.1 10^3/uL Sodium Level 129 L 135-145 MMOL/L Potassium Level 3.9 3.6-5.0 MMOL/L Chloride Level 95 L 98-107 MMOL/L Carbon Dioxide Level 25 21-32 MMOL/L Anion Gap 9 5-14 MMOL/L Blood Urea Nitrogen 10 7-18 MG/DL Creatinine 0.71 0.60-1.30 MG/DL Estimat Glomerular Filtration Rate > 60 BUN/Creatinine Ratio 14 Glucose Level 106 H 70-105 MG/DL Calcium Level 9.5 8.5-10.1 MG/DL Corrected Calcium 9.7 8.5-10.1 MG/DL Magnesium Level 1.6 L 1.8-2.4 MG/DL Total Bilirubin 0.5 0.1-1.0 MG/DL Aspartate Amino Transf (AST/SGOT) 22 5-34 U/L Alanine Aminotransferase (ALT/SGPT) 20 0-55 U/L Alkaline Phosphatase 146 H 40-136 U/L C-Reactive Protein High Sensitivity 2.60 H 0.00-0.50 MG/DL Total Protein 6.3 L 6.4-8.2 GM/DL Albumin 3.7 3.2-4.5 GM/DL Lactic Acid Level 0.89 0.50-2.00 MMOL/L Urine Color RED H Urine Clarity VERY CLOUDY H Urine pH 7 5-9 Urine Specific [place] 1.015 L 1.016-1.022 Urine Protein 2+ H NEGATIVE Urine Glucose (UA) NEGATIVE NEGATIVE Urine Ketones 1+ H NEGATIVE Urine Nitrite POSITIVE H NEGATIVE Urine Bilirubin 3+ H NEGATIVE Urine Urobilinogen 8 H NORMAL MG/DL Urine Leukocyte Esterase 3+ H NEGATIVE Urine RBC (Auto) 5+ H NEGATIVE Urine RBC >100 H /HPF Urine WBC 10-25 H /HPF Urine Squamous Epithelial Cells 5-10 /HPF Urine Crystals NONE /LPF Urine Bacteria FEW H /HPF Urine Casts NONE /LPF Urine Mucus NEGATIVE /LPF Urine Culture Indicated YES Urine Opiates Screen NEGATIVE NEGATIVE Urine Oxycodone Screen NEGATIVE NEGATIVE Urine Methadone Screen NEGATIVE NEGATIVE Urine Propoxyphene Screen NEGATIVE NEGATIVE Urine Barbiturates Screen NEGATIVE NEGATIVE Ur Tricyclic Antidepressants Screen NEGATIVE NEGATIVE Urine Phencyclidine Screen NEGATIVE NEGATIVE Urine Amphetamines Screen NEGATIVE NEGATIVE Urine Methamphetamines Screen NEGATIVE NEGATIVE Urine Benzodiazepines Screen POSITIVE H NEGATIVE Urine Cocaine Screen NEGATIVE NEGATIVE Urine Cannabinoids Screen NEGATIVE NEGATIVE My Orders Orders - VERÓNICA MARTINEZ Chest Pa/Lat (2 View) (11/30/18 09:44) Cbc With Automated Diff (11/30/18 09:44) Comprehensive Metabolic Panel (11/30/18 09:44) Hs C Reactive Protein (11/30/18 09:44) Drug Screen Stat (Urine) (11/30/18 09:44) Magnesium (11/30/18 09:44) Ua Culture If Indicated (11/30/18 09:44) Blood Culture (11/30/18 09:44) Ed Iv/Invasive Line Start (11/30/18 09:44) Lactated Ringers (Lr 1000 Ml Iv Solution (11/30/18 09:44) Lactic Acid Analyzer (11/30/18 09:44) Urine Culture (11/30/18 11:10) Ceftriaxone For Iv Use (Rocephin For I (11/30/18 12:15) Fentanyl Injection (Sublimaze Injection (11/30/18 12:45) Fentanyl Injection (Sublimaze Injection (11/30/18 12:30) Orthostatic Vital Signs (Adult (11/30/18 12:46) Medications Given in ED Current Medications Medications Dose Ordered Sig/Brad Route Start Time Stop Time Status Last Admin Dose Admin Ceftriaxone Sodium 1000 mg/ Sterile Water 10 ml @ 200 mls/hr ONCE ONCE IV 11/30/18 12:15 11/30/18 12:17 DC 11/30/18 12:30 200 MLS/HR Fentanyl Citrate 25 mcg ONCE ONCE IVP 11/30/18 12:45 11/30/18 12:46 DC 11/30/18 12:38 25 MCG Lactated Ringer's 1,000 ml @ 0 mls/hr Q0M ONCE IV 11/30/18 09:44 11/30/18 09:47 DC 11/30/18 10:00 0 MLS/HR Vital Signs/I&O 11/30/18 11/30/18 09:40 11:54 Temp 97.9 97.9 Pulse 56 56 Resp 20 20 B/P (MAP) 164/81 (108) 164/81 Pulse Ox 91 96 O2 Delivery Nasal Cannula O2 Flow Rate 2.00 Progress Progress Note #1: Time: 10:44 Progress Note Plan to give her some IV fluids and look for signs of infection especially with the bladder. Expect an elevated white count. Progress Note #2: Time: 12:08 Progress Note After some IV fluids patient's symptoms are improved. She has a bladder infection. No pain over the CVA. White count is normal so we'll give her a gram of Rocephin and set her up on Keflex. She thinks she took Bactrim last month for her UTI. No previous urine culture to reference. She has a follow-up appointment in [address] Lindsay, urology. Progress Note #3: Time: 12:56 Progress Note Her neighbor presents and he has concerns about the patient's mobility and risk of stroke because of her fall last week. He says she had a fall last night as well and the patient says she slid down against the wall but did not strike her head and is not having any increased pain. She does have residual pain in her low back and typically uses naproxen which she did take this morning. She would like something different for her pain. We will complete a more thorough examination to include orthostatics and have her ambulate around the ER. She may benefit from the use of a walker. We completed a complete neurologic examination including NIH and her cranial nerves are intact, NIH is 0. The patient's weakness is probably due to her bladder infection. Her vital signs and labs are still unremarkable and I think she would be okay for outpatient follow-up however if she wants we could look into acute rehabilitation unit or if she is concerned about her falls and does not qualify then maybe ARU. Patient got up and walked up and down the [place] with no problem. She wants to go home. We discussed the possibility area when she has declined. She said she will talk to Dr. Melendrez whether she wants to try outpatient physical therapy for her debility. We will continue with the original plan and allow patient to go home. Departure Impression Primary Impression: Urinary tract infection Qualified Codes: N30.01 - Acute cystitis with hematuria Additional Impression: Pulmonary nodules/lesions, multiple Disposition: 01 HOME, SELF-CARE Condition: Stable Departure-Patient Inst. Decision time for Depature: 12:09 Referrals: MEL MELENDREZ MD (PCP/Family) Primary Care Physician HUY LINDSAY MD Patient Instructions: Urinary Tract Infections in Adults Add. Discharge Instructions: You have some pulmonary nodules noted on today's chest x-ray but these may have been seen before so you should go talk to your primary care doctor about this in the next couple weeks and discuss whether previous imaging demonstrated the same nodules and whether or not they have grown significantly. If there is no substantial previous imaging then you and your primary doctor should consider getting a CT of the chest. clean up helper banquet the Keflex and take one capsule twice a day with food for the next 10 days. Drink lots of fluids to help flush your bladder out. Follow-up with Dr. Lindsay, urology at your scheduled appointment on the . You can follow-up with Dr. Melendrez discussed possibility of outpatient rehabilitation/physical therapy or debility. If you're having intractable nausea vomiting, strong fevers or feeling worse then you should return to the nearest ER for further evaluation. All discharge instructions reviewed with patient and/or family. Voiced understanding. Scripts Cephalexin (Keflex) 500 Mg Capsule 500 MG PO BID for 10 Days, #20 CAP 0 Refills Prov: VERÓNICA MARTINEZ 11/30/18 VERÓNICA MARTINEZ November 30, 2018 10:44
--- NOTE | 2018-11-30 11:01 | Diagnostic Imaging Report ---
INDICATION: Shortness of breath. FINDINGS: Heart size and pulmonary vascularity are normal. There are 2 questionable nodular opacities in the right lung and two in the left lower lung. These could be vascular shadows but pulmonary nodules cannot be excluded. There are no infiltrates, effusions or pneumothoraces. Heart size and pulmonary vascularity are normal. IMPRESSION: Questionable pulmonary nodules. Recommend nonemergent CT of the thorax for followup. Dictated by: Dictated on workstation # [id number]
[2018-11-30 11:18] LABS: CLARITY,URINE VERY CLOUDY; COLOR,URINE RED; GLUCOSE, URINE (UA) NEGATIVE (NEGATIVE); KETONES,URINE 1+ (NEGATIVE); LEUKOCYTE ESTERASE ,URINE 3+ (NEGATIVE); NITRITE,URINE POSITIVE (NEGATIVE); PH,URINE 7 (5-9); PROTEIN,URINE 2+ (NEGATIVE); UROBILINOGEN,URINE 8 MG/DL (NORMAL)
[2018-11-30 11:38] LABS: BACTERIA,URINE FEW /HPF; BILIRUBIN,URINE 3+ (NEGATIVE); RBC,URINE >100 /HPF
[2018-11-30 11:46] LABS: AMPHETAMINE SCREEN, URINE NEGATIVE (NEGATIVE); BARBITURATE SCREEN URINE NEGATIVE (NEGATIVE); BENZODIAZEPINES SCREEN URINE POSITIVE (NEGATIVE); CANNABINOID SCREEN, URINE NEGATIVE (NEGATIVE); COCAINE SCREEN URINE NEGATIVE (NEGATIVE); METHADONE STAT NEGATIVE (NEGATIVE); METHAMPHETAMINE SCREEN URINE S NEGATIVE (NEGATIVE); OPIATE SCREEN URINE NEGATIVE (NEGATIVE); OXYCODONE STAT NEGATIVE (NEGATIVE); PROPOXYPHENE STAT NEGATIVE (NEGATIVE); TRICYCLIC ANTIDEPRESSANTS SCRE NEGATIVE (NEGATIVE)
[2018-11-30] MEDS ORDERED: CEPH-507 PO (12:12)
[2018-11-30] MEDS ORDERED: cefTRIAXone FOR IV USE 1,000 MG in WATER (STERILE) FOR INJECTION 10 ML IV ONE (12:15)
[2018-11-30] MEDS ORDERED: fentaNYL INJECTION 100 MCG/2 ML AMP ONE (12:30)
[2018-11-30 12:45] VITALS: BP_SYST 165; BP_SYST 171; BP_SYST 180; BP_DIAS 67; BP_DIAS 87; BP_DIAS 88
[2018-11-30] MEDS ORDERED: fentaNYL INJECTION 100 MCG/2 ML AMP IVP ONE (12:45)
[2018-11-30 13:30] VITALS: BP 164/81
== END 2018-11-30 13:29 | disposition home or self-care (01) ==
LOC: EDUNIT# 09:38 → ER 09:39
DX: N39.0 Urinary tract infection, site not specified (principal); R91.8 Other nonspecific abnormal finding of lung field; I10 Essential (primary) hypertension; E03.9 Hypothyroidism, unspecified; F98.8 Other specified behavioral and emotional disorders with onset usually occurring in childhood and adolescence; F90.9 Attention-deficit hyperactivity disorder, unspecified type; F41.9 Anxiety disorder, unspecified; F31.9 Bipolar disorder, unspecified; Z87.19 Personal history of other diseases of the digestive system; Z87.440 Personal history of urinary (tract) infections; Z90.710 Acquired absence of both cervix and uterus
CPT/HCPCS: 36415; 71046; 80053; 80306; 81000; 83605; 83735; 85025; 86141; 87040; 87088

== ENCOUNTER 2019-05-08 10:07 | Emergency (ER) | payer MEDICARE, OTHER ==
[~2019-05-08] VITALS: Ht 167 cm; Wt 109.0 kg
[~2019-05-08 10:07] MED LIST changes: +CEPH-507 PO
--- NOTE | 2019-05-08 10:23 | ED Cardiac General ---
History of Present Illness General Stated Complaint: DIZZINESS;NAUSEA;PALPATATIONS Source: patient, EMS Exam Limitations: no limitations History of Present Illness Date Seen by Provider: May 08, 2019 Time Seen by Provider: 10:10 Initial Comments Patient presents to ER by EMS from home with chief complaint of palpitations. EMS reportedly got a 12-lead on her that showed no ST changes but she was bradycardic with no prolonged AL interval. She is not having any pain. She said she thought she might of had a panic attack earlier this morning and that might of been the palpitations she was feeling. She takes propranolol for palpitations and panic disorder in the morning. She has not taken it this morning yet but she said she did take 2 doses yesterday. She typically takes 80 mg daily. Allergies and Home Medications Allergies Uncoded Allergies: MERCURY (Allergy, Mild, 08/24/10) Home Medications Alprazolam 1 Mg Tablet, 1 MG PO TID, (Reported) Biotin 1,000 Mcg Tablet, 1,000 MCG PO DAILY @ 1200, (Reported) Calcium Carb/Vit D3/Minerals 1 Each Tab.chew, 2,400 MG PO DAILY @ 1200, (Reported) TAKES 2 (1200MG) TABLETS Cephalexin 500 Mg Capsule, 500 MG PO BID Prescribed by: VERÓNICA MARTINEZ on 11/30/18 1212 Cholecalciferol (Vitamin D3) 50,000 Unit Capsule, 50,000 UNIT PO WEEK, (Reported) Chromium Picolinate 1,000 Mcg Tablet, 1,000 MCG PO DAILY @ 1200, (Reported) Chromium/Herbal Complex No.238 1 Each Tablet, 2 TAB PO DAILY @ 1200, (Reported) Citalopram Hydrobromide 40 Mg Tablet, 40 MG PO DAILY, (Reported) Dextroamphetamine/Amphetamine 30 Mg Tablet, 60 MG PO DAILY, (Reported) take 2 (30mg) tabs Dextroamphetamine/Amphetamine 30 Mg Tablet, 30 MG PO DAILY@1200, (Reported) Dorzolamide HCl/Timolol Maleat 10 Ml Drops, 1 DROP OU BID, (Reported) Folic Acid 0.4 Mg Tablet, 800 MCG PO DAILY @ 1200, (Reported) TAKES 2 (400MCG) TABLETS Ginkgo Biloba Extract 120 Mg Capsule, 240 MG PO DAILY @ 1200, (Reported) Glucosamine Sulfate 1,000 Mg Capsule, 2,000 MG PO DAILY @ 1200, (Reported) Lamotrigine 200 Mg Tab, 200 MG PO BID, (Reported) Latanoprost 2.5 Ml Drops, 1 DROPS OU HS, (Reported) Naltrexone HCl/Bupropion HCl 1 Each Tablet.er, 2 EACH PO BID, (Reported) Naproxen 500 Mg Tablet, 500 MG PO BID, (Reported) [place]-3S/Dha/Epa/Fish Oil 1 Each Capsule, 3,600 MG PO DAILY @ 1200, (Reported) TAKES 3 (1200MG) CAPSULES Oxcarbazepine 300 Mg Tablet, 600 MG PO HS, (Reported) Propranolol HCl 80 Mg Cap.sa.24h, 80 MG PO DAILY, (Reported) Simvastatin 20 Mg Tablet, 20 MG PO DAILY, (Reported) Sodium Chloride 45 Ml [place], 1 SPRAY NS HS, (Reported) Trazodone HCl 150 Mg Tablet, 300 MG PO HS, (Reported) take 2 (150mg) tab [Nature-Throid 1GRAIN] , 2 GR PO DAILY, (Reported) TAKES 2 (1GRAIN) TABLETS [T-3 45MCG] , 1 CAP PO BID, (Reported) COMPOUND FROM [facility] Patient Home Medication List Home Medication List Reviewed: Yes Review of Systems Review of Systems Constitutional: No chills, No fever, No malaise EENTM: No Blurred Vision, No Double Vision Respiratory: Denies Cough, Denies Shortness of Air Cardiovascular: See HPI; Denies Chest Pain, Denies Edema; Palpitations Gastrointestinal: Denies Abdomen Distended, Denies Abdominal Pain Genitourinary: Denies Burning, Denies Discharge Musculoskeletal: No back pain, No joint pain Past Hibxtxd-Zakopp-Hderav Hx Patient Social History Alcohol Use: Denies Use Recreational Drug Use: No Smoking Status: Never a Smoker 2nd Hand Smoke Exposure: No Recent Hopitalizations: No Immunizations Up To Date Tetanus Booster (TDap): More than 5yrs Date of Pneumonia Vaccine: Aug 01, 2008 Date of Influenza Vaccine: May 19, 2013 Seasonal Allergies Seasonal Allergies: Yes Past Medical History Surgeries: Yes (NECK- RUSSELL REMOVAL, PRECANCEROUS CELLS REMOVED FROM PELVIC AREA, ) Hysterectomy Respiratory: No Cardiac: Yes Hypertension Neurological: No Reproductive Disorders: No Sexually Transmitted Disease: No Gastrointestinal: Yes (occult blood) Chronic Diarrhea Musculoskeletal: Yes (NARROWING OF L3-L5, OSTEOARTHRITIS) Arthritis, Chronic Back Pain Endocrine: Yes Hypothyroidsim Glaucoma Cancer: Yes Uterine Psychosocial: Yes ADD/ADHD, Anxiety, Bipolar, Depression Integumentary: No Blood Disorders: No Adverse Reaction/Blood Tranf: No Family Medical History Alcoholism 03 FATHER, Age:93 03 MOTHER, , Age:60 years and older 09 BROTHER, Age:68 09 BROTHER, , Age:40's - 50 09 BROTHER, Age:63 09 BROTHER, Age:59 09 SISTER, Age:56 Cancer 03 MOTHER, , Age:60 years and older 09 BROTHER, , Age:40's - 50 Cataract 03 FATHER, Age:93 Family history: Arthritis 09 SISTER, Age:56 Family history: Gastrointestinal disease 09 BROTHER, Age:59 Family history: Thyroid disorder 09 SISTER, Age:56 Headache 03 FATHER, Age:93 03 MOTHER, , Age:60 years and older 09 BROTHER, Age:68 09 BROTHER, , Age:40's - 50 09 BROTHER, Age:63 09 BROTHER, Age:59 09 SISTER, Age:56 History of drug abuse Visual impairment No Family History of: Abdominal aortic aneurysm Florence's disease Aphasia Cancer of colon Chest pain Congenital heart disease Congestive heart failure Cystic fibrosis Dementia Dysphagia Family history: Allergy Family history: Alzheimer's disease Family history: Asthma Family history: Breast disease Family history: Cardiovascular disease Family history: Coronary thrombosis Family history: Diabetes mellitus Family history: Glaucoma Family history: Hypertension Family history: Osteoporosis Hearing loss Heart disease Hereditary disease History of - anemia History of - respiratory disease Human immunodeficiency virus (HIV) seropositivity Hypercholesterolemia Infertile Kidney disease Malignant neoplasm of lung Myocardial infarction Parkinson's disease Prostate cancer Psychotic disorder Seizure disorder Stroke Tuberculosis Physical Exam Vital Signs Vital Signs - First Documented 05/08/19 10:07 Temp 36.8 Pulse 41 Resp 16 B/P (MAP) 142/63 (89) Pulse Ox 96 O2 Delivery Room Air Capillary Refill : Height, Weight, BMI Height: 5'6.00" Weight: 254lbs. 0oz. 115.412096jq; 44.8 BMI Method:Stated General Appearance: No Apparent Distress, WD/WN HEENT: PERRL/EOMI, Pharynx Normal, Moist Mucous Membranes Neck: Full Range of Motion, Normal Inspection Respiratory: Lungs Clear, Normal Breath Sounds, No Accessory Muscle Use, No Respiratory Distress Cardiovascular: Regular Rate, Rhythm, No Murmur, Normal Peripheral Pulses, Bradycardia Gastrointestinal: Normal Bowel Sounds, No Organomegaly, Non Tender Neurologic/Psychiatric: Alert, Oriented x3 Skin: Normal Color, Warm/Dry Progress/Results/Core Measures Results/Orders Lab Results Laboratory Tests Test 05/08/19 10:10 05/08/19 11:42 Range/Units White Blood Count 7.2 4.3-11.0 10^3/uL Red Blood Count 4.34 L 4.35-5.85 10^6/uL Hemoglobin 12.5 11.5-16.0 G/DL Hematocrit 39 35-52 % Mean Corpuscular Volume 89 80-99 FL Mean Corpuscular Hemoglobin 29 25-34 PG Mean Corpuscular Hemoglobin Concent 32 32-36 G/DL Red Cell Distribution Width 14.8 H 10.0-14.5 % Platelet Count 277 130-400 10^3/uL Mean Platelet Volume 9.7 7.4-10.4 FL Neutrophils (%) (Auto) 71 42-75 % Lymphocytes (%) (Auto) 15 12-44 % Monocytes (%) (Auto) 8 0-12 % Eosinophils (%) (Auto) 6 0-10 % Basophils (%) (Auto) 0 0-10 % Neutrophils # (Auto) 5.1 1.8-7.8 X 10^3 Lymphocytes # (Auto) 1.1 1.0-4.0 X 10^3 Monocytes # (Auto) 0.6 0.0-1.0 X 10^3 Eosinophils # (Auto) 0.4 H 0.0-0.3 10^3/uL Basophils # (Auto) 0.0 0.0-0.1 10^3/uL Prothrombin Time 13.5 12.2-14.7 SEC INR Comment 1.0 0.8-1.4 Activated Partial Thromboplast Time 24 24-35 SEC Sodium Level 135 135-145 MMOL/L Potassium Level 4.4 3.6-5.0 MMOL/L Chloride Level 99 98-107 MMOL/L Carbon Dioxide Level 25 21-32 MMOL/L Anion Gap 11 5-14 MMOL/L Blood Urea Nitrogen 19 H 7-18 MG/DL Creatinine 1.59 H 0.60-1.30 MG/DL Estimat Glomerular Filtration Rate 33 BUN/Creatinine Ratio 12 Glucose Level 100 70-105 MG/DL Calcium Level 12.0 H 8.5-10.1 MG/DL Corrected Calcium 12.2 H 8.5-10.1 MG/DL Magnesium Level 1.8 1.6-2.4 MG/DL Total Bilirubin 0.3 0.1-1.0 MG/DL Aspartate Amino Transf (AST/SGOT) 18 5-34 U/L Alanine Aminotransferase (ALT/SGPT) 17 0-55 U/L Alkaline Phosphatase 98 40-136 U/L Myoglobin 54.6 10.0-92.0 NG/ML Troponin I < 0.028 < 0.028 <0.028 NG/ML B-Type Natriuretic Peptide 103.8 H <100.0 PG/ML Total Protein 6.5 6.4-8.2 GM/DL Albumin 3.7 3.2-4.5 GM/DL My Orders Orders - VERÓNICA MARTINEZ Cbc With Automated Diff (05/08/19 10:19) Magnesium (05/08/19 10:19) Chest 1 View, Ap/Pa Only (05/08/19 10:19) Ekg Tracing (05/08/19 10:19) Cardiac Profile 1 (05/08/19 10:19) Comprehensive Metabolic Panel (05/08/19 10:19) Myoglobin Serum (05/08/19 10:19) Protime With Inr (05/08/19 10:19) Partial Thromboplastin Time (05/08/19 10:19) O2 (05/08/19 10:19) Monitor-Rhythm Ecg Trace Only (05/08/19 10:19) Lipid Panel (05/09/19 06:00) Ed Iv/Invasive Line Start (05/08/19 10:19) BNP (05/08/19 10:19) Aspirin Chewable Tablet (Baby Aspirin Ch (05/08/19 10:30) Atropine Injection (Atropine Injection) (05/08/19 10:30) Ed Iv/Invasive Line Start (05/08/19 11:19) Ns Iv 1000 Ml (Sodium Chloride 0.9%) (05/08/19 11:19) Troponin I (05/08/19 11:51) Medications Given in ED Current Medications Medications Dose Ordered Sig/Brad Route Start Time Stop Time Status Last Admin Dose Admin Aspirin 324 mg ONCE ONCE PO 05/08/19 10:30 05/08/19 10:31 DC 05/08/19 10:37 324 MG Atropine Sulfate 0.4 mg ONCE ONCE IV 05/08/19 10:30 05/08/19 10:31 DC 05/08/19 10:36 0.4 MG Vital Signs/I&O 05/08/19 10:07 Temp 36.8 Pulse 41 Resp 16 B/P (MAP) 142/63 (89) Pulse Ox 96 O2 Delivery Room Air Progress Progress Note : Time: 11:15 Progress Note Initial presentation with bradycardia sinus at 38-42 area after a dose of atropi ne her rate improved up into the mid 60s and is now back down around 50. I suspect maybe because she is using, propranolol. She denies having used any today. Initial ECG Impression Date: May 08, 2019 Initial ECG Impression Time: 10:12 Initial ECG Rate: 39 Initial ECG Rhythm: S.Shady Initial ECG Intervals: Normal Initial ECG Impression: Sinus Bradycardia Comment Sinus bradycardia with normal AL interval of [address] changes. [facility]. [place], [place] NAME: ALBARO WORKMAN [facility] REC#: [id number] PT STATUS: REG ER : 1955 PHYSICIAN: VERÓNICA MARTINEZ MD ADMIT DATE: 05/08/19/ER Draft Date of Exam:05/08/19 CHEST 1 VIEW, AP/PA ONLY INDICATION: Dizziness, palpitations. COMPARISON: 11/30/2018. FINDINGS: Subcentimeter nodule projects laterally in the right mid lung, believed to be calcified and likely granuloma. The heart size is within normal limits. There is some prominence of the central pulmonary vascular structures, similar to the previous exam. No shonda edema or pneumonia. Left lung detail limited by overlying paddles. No effusion or pneumothorax. IMPRESSION: Some prominence of the central pulmonary vascularity redemonstrated. A calcified right lung nodule, believed granuloma. No pleural pathology or convincing evidence for edema. Dictated on workstation # [id number] Dict: 05/08/19 1209 Trans: 05/08/19 1218 [id number] Interpreted by: DEEPIKA LAU Electronically signed by: Diagnostic Imaging Diagonstic Imaging: Xray Plain Films/CT/US/NM/MRI: chest (1v) Comments No acute cardiopulmonary process noted. Reviewed: Reviewed by Me Consults : Consulting Physician: ONELIA TORRES MD [facility] Consults Notes 1120: Discussed the case EKG labs with Dr. Torres and he says it we will observe her for another one half to one hour and she is doing okay then she can go home and follow-up tomorrow in the clinic with him. Departure Impression Primary Impression: Sinus bradycardia by electrocardiogram Additional Impressions: Mild dehydration Acute kidney injury Disposition: HOME, SELF-CARE Condition: Improved Departure-Patient Inst. Decision time for Depature: 12:27 Referrals: ONELIA TORRES MD [facility] MEL MELENDREZ MD (PCP/Family) Primary Care Physician Patient Instructions: Bradycardia (DC) Add. Discharge Instructions: Discontinue taking the propranolol until you've met with Dr. Torres, cardiology tomorrow. Call Dr. Torres's office and request an appointment for tomorrow. Be careful getting up from a seated or lying down position and give your body time to tolerate as you may be more prone to passing out with a low heart rate. Drink plenty of fluids. Return to the ER if you're having chest pain, shortness of breath or other worrisome symptoms. Copy Copies To 1: MEL MELENDREZ MD, TITUS J May 08, 2019 10:23
[2019-05-08 10:26] LABS: BASOPHILS % (AUTO) 0 % (0-10); EOSINOPHILS # (AUTO) 0.4 10^3/uL (0.0-0.3); EOSINOPHILS % (AUTO) 6 % (0-10); HEMATOCRIT 39 % (35-52); HEMOGLOBIN 12.5 G/DL (11.5-16.0); LYMPHOCYTES # (AUTO) 1.1 X 10^3 (1.0-4.0); LYMPHOCYTES % (AUTO) 15 % (12-44); MEAN CORPUSCULAR HEMOGLOBIN 29 PG (25-34); MEAN CORPUSCULAR HGB CONC 32 G/DL (32-36); MEAN CORPUSCULAR VOLUME 89 FL (80-99); MEAN PLATELET VOLUME 9.7 FL (7.4-10.4); MONOCYTES # (AUTO) 0.6 X 10^3 (0.0-1.0); MONOCYTES % (AUTO) 8 % (0-12); NEUTROPHILS # (AUTO) 5.1 X 10^3 (1.8-7.8); NEUTROPHILS % (AUTO) 71 % (42-75); PLATELET COUNT 277 10^3/uL (130-400); RED CELL DISTRIBUTION WIDTH 14.8 % (10.0-14.5); WHITE BLOOD COUNT 7.2 10^3/uL (4.3-11.0)
[2019-05-08] MEDS ORDERED: ATROPINE INJ 0.4 MG/ML SDV IV ONE (10:30)
[2019-05-08] MEDS ORDERED: ASPIRIN 81 MG CHEW (CHILDREN'S ASA) PO ONE (10:30)
--- NOTE | 2019-05-08 10:42 | NUR ---
HR 65 AT THIS TIME. NOTIFIED.
[2019-05-08 10:47] LABS: PROTHROMBIN TIME PATIENT 13.5 SEC (12.2-14.7)
[2019-05-08 10:59] LABS: ALANINE AMINOTRANSFERASE 17 U/L (0-55); ALBUMIN 3.7 GM/DL (3.2-4.5); ALKALINE PHOSPHATASE 98 U/L (40-136); BILIRUBIN,TOTAL 0.3 MG/DL (0.1-1.0); BUN/CREATININE RATIO 12; CARBON DIOXIDE 25 MMOL/L (21-32); CHLORIDE 99 MMOL/L (98-107); CREATININE SERUM 1.59 MG/DL (0.60-1.30); GFR ESTIMATED 33; GLUCOSE 100 MG/DL (70-105); MAGNESIUM 1.8 MG/DL (1.6-2.4); POTASSIUM 4.4 MMOL/L (3.6-5.0); SODIUM 135 MMOL/L (135-145); TOTAL PROTEIN 6.5 GM/DL (6.4-8.2)
--- NOTE | 2019-05-08 11:00 | NUR ---
REPORT GIVEN AND CARE TURNED OVER TO KC. COLLAZO.
[2019-05-08] MEDS ORDERED: NS IV 1000 ML 1,000 ML IV SCH (11:19)
--- NOTE | 2019-05-08 12:18 | Diagnostic Imaging Report ---
INDICATION: Dizziness, palpitations. COMPARISON: 11/30/2018. FINDINGS: Subcentimeter nodule projects laterally in the right mid lung, believed to be calcified and likely granuloma. The heart size is within normal limits. There is some prominence of the central pulmonary vascular structures, similar to the previous exam. No shonda edema or pneumonia. Left lung detail limited by overlying paddles. No effusion or pneumothorax. IMPRESSION: Some prominence of the central pulmonary vascularity redemonstrated. A calcified right lung nodule, believed granuloma. No pleural pathology or convincing evidence for edema. Dictated by: Dictated on workstation # [id number]
[2019-05-08 12:50] VITALS: BP 152/87
== END 2019-05-08 12:50 | disposition home or self-care (01) ==
LOC: EDUNIT# 10:07 → ER 10:08
DX: R00.1 Bradycardia, unspecified (principal); E86.0 Dehydration; N17.9 Acute kidney failure, unspecified; F41.0 Panic disorder [episodic paroxysmal anxiety]; I10 Essential (primary) hypertension; E03.9 Hypothyroidism, unspecified; F90.9 Attention-deficit hyperactivity disorder, unspecified type; F31.9 Bipolar disorder, unspecified; Z85.42 Personal history of malignant neoplasm of other parts of uterus; Z88.8 Allergy status to other drugs, medicaments and biological substances; Z90.710 Acquired absence of both cervix and uterus
CPT/HCPCS: 36415; 71045; 80053; 83735; 83874; 83880; 84484; 85025; 85610; 85730; 93005; 93041; 96361; 96374

== ENCOUNTER 2019-05-22 11:59 | Day surgery (SDC) | payer MEDICARE, OTHER ==
[2019-05-22] VITALS (9 sets, daily range): BP systolic 108–205; BP diastolic 81–116
[~2019-05-22] VITALS: Ht 167 cm; Wt 109.0 kg
[2019-05-22] MEDS ORDERED: NS IV 1000 ML 1,000 ML IV SCH ×2 (12:03→14:08)
[2019-05-22] MEDS ORDERED: NS IV 1000 ML 1,000 ML ONE (12:05)
[2019-05-22] MEDS ORDERED: HEParin (CATH LAB) 2,000 ML IV ONE (12:05)
[2019-05-22] MEDS ORDERED: LIDOCAINE 1% INJ 20 ML 20 ML VIAL ONE (12:05)
[2019-05-22] MEDS ORDERED: ASEN10TA9 PO (12:42)
[2019-05-22] MEDS ORDERED: PRAM0.257 PO (12:42)
[2019-05-22] MEDS ORDERED: OXYB5TAB9 PO (12:42)
[2019-05-22] MEDS ORDERED: ALPR0.5T7 PO (12:42)
[2019-05-22] MEDS ORDERED: SODI126M NS (12:45)
[2019-05-22 12:48] LABS: HEMOGLOBIN 11.2 G/DL (11.5-16.0); MEAN PLATELET VOLUME 9.4 FL (7.4-10.4); RED CELL DISTRIBUTION WIDTH 14.7 % (10.0-14.5); WHITE BLOOD COUNT 5.1 10^3/uL (4.3-11.0)
[2019-05-22] MEDS ORDERED: T-3 PO (12:54)
[2019-05-22 12:55] LABS: INR 0.9 (0.8-1.4); PROTHROMBIN TIME PATIENT 12.7 SEC (12.2-14.7)
[2019-05-22 13:07] LABS: ALBUMIN 3.7 GM/DL (3.2-4.5); BILIRUBIN,TOTAL 0.4 MG/DL (0.1-1.0); CALCIUM 10.2 MG/DL (8.5-10.1); CREATININE SERUM 1.08 MG/DL (0.60-1.30); POTASSIUM 4.2 MMOL/L (3.6-5.0); TOTAL PROTEIN 6.5 GM/DL (6.4-8.2)
[2019-05-22] MEDS ORDERED: FERR325T18 PO (13:12)
[2019-05-22] MEDS ORDERED: NFBIOT1000 PO (13:12)
[2019-05-22] MEDS ORDERED: CRAN1CAP7 PO (13:12)
[2019-05-22] MEDS ORDERED: TURM538C PO (13:12)
[2019-05-22] MEDS ORDERED: fentaNYL INJECTION 100 MCG/2 ML AMP ONE (13:19)
[2019-05-22] MEDS ORDERED: MIDAZOLAM 5 MG/5 ML (VERSED) VIAL ONE (13:19)
--- NOTE | 2019-05-22 13:21 | NUR ---
SPOKE WITH PT (SHE BROUGHT IN SOME OF HER BOTTLES) WELL CALLING ALL HER PHARMACIES ([facility], [facility], AND [facility]) TO COMPLETE THE MED REC. PT WAS ABLE TO TELL ME WHEN SHE TAKES HER MEDICATIONS. THE FOLLOWING ARE FILL DATES FROM DIFFERENT PHARMACIES: 02-20-2019 PRAMIPEXOLE #270 (THE PT'S BOTTLE SAID " TAKE TID" PT TAKES 2 TABS BID 03-20-2019 T-3 THYROID COMPOUND ([facility] THIS FOR HER) #30/30S 04-25-2019 LATANOPROST #1 BOTTLE 04-25-2019 DORZOLAMIDE #1 BOTTLE 05-03-2019 ALPRAZOLAM #120/30DS 05-04-2019 OXYBUTYNIN #180/90DS 05-15-2019 OXCARBAZEPINE #180/90DS (GETS FROM MAIL ORDER) 05-15-2019 CITALOPRAM #90/90DS (MAIL ORDER) 05-15-2019 NAPROXEN #180/90DS (MAIL ORDER) 05-15-2019 LAMOTRIGINE #180/90DS (MAIL ORDER) 05-15-2019 SAPHRIS #60/30DS ([facility]) OTC MEDS: BIOTIN :1 BID CRANBERRY W/ VIT C: 1 BID TURMERIC: 1 BID IRON: 1 BID
[2019-05-22] MEDS ORDERED: TRAM50TA2 PO (13:32)
--- NOTE | 2019-05-22 14:08 | Cardiac Procedure Note-CS/ASA ---
Pre-Procedure Note Pre-Op Procedure Note H&P Reviewed The H&P was reviewed, patient examined and no changes noted. Date H&P Reviewed: May 22, 2019 Time H&P Reviewed: 13:30 Conscious Sedation Pre-Proced Time 13:30 ASA Score 3 For ASA 3 and 4: Consider anesthesia and medical clearance. Also, for patients with a history of failed moderate sedation consider anesthesia. Airway Lungs Heart ASA score ASA 1: a normal healthy patient ASA 2: a patient with a mild systemic disease (mid diabetes, controlled hypertension, obesity ASA 3: a patient with a severe systemic disease that limits activity (angina, COPD, prior Myocardial infarction) ASA 4: a patient with an incapacitating disease that is a constant threat to life (CHF, renal failure) ASA 5: a moribund patient not expected to survive 24 hrs. (ruptured aneurysm) ASA 6: a declared brain- patient whose organs are being harvested. For emergent operations, add the letter E after the classification Mallampati Classification Grade 2 Sedation Plan Analgesia, Amnesia, Plan communicated to team members, Discussed options with patient/fam, Discussed risks with patient/fam The patient is an appropriate candidate to undergo the planned procedure, sedation, and anesthesia. The patient immediately re-assessed prior to indication. ONELIA PANDA MD FACP FAC CCDS May 22, 2019 14:08
--- NOTE | 2019-05-22 14:12 | Discharge Inst-Cardiology ---
Discharge Inst-Cardiac Discharge Medications Continued Medications: Alprazolam (Alprazolam) 0.5 Mg Tablet 1 MG PO BID Asenapine Maleate (Saphris) 10 Mg Tab.subl 15 MG PO HS Biotin (Biotin) 1,000 Mcg Tablet 1000 MCG PO BID, TAB Citalopram Hydrobromide (Celexa) 40 Mg Tablet 40 MG PO DAILY, TAB Cranberry Conc/Ascorbic Acid (Cranberry Plus Vitamin C Sftgl) 1 Each Capsule 1 CAP PO BID, CAP Dorzolamide HCl/Timolol Maleat (Dorzolamide-Timolol Eye Drops) 10 Ml Drops 1 DROP OU BID, DROPS Ferrous Sulfate (Ferrous Sulfate) 325 Mg Tablet 325 MG PO BID, TAB Lamotrigine (Lamictal) 200 Mg Tab 400 MG PO DAILY, TAB Latanoprost (Xalatan) 2.5 Ml Drops 1 DROPS OU HS, DROPS Oxcarbazepine (Oxcarbazepine) 300 Mg Tablet 600 MG PO HS, TAB Oxybutynin Chloride (Oxybutynin Chloride) 5 Mg Tablet 5 MG PO BID Pramipexole Di-HCl (Pramipexole Dihydrochloride) 0.25 Mg Tablet 0.5 MG PO BID Sodium Chloride (Saline Nasal Mist) 126 Ml Mist 126 ML NS, EA [T-3] () 90 TAB 90 MCG PO DAILY Tramadol HCl (Tramadol HCl) 50 Mg Tablet 50 MG PO DAILY PRN for PAIN-MODERATE Turmeric Root Extract (Turmeric) 538 Mg Capsule 538 MG PO BID, CAP Discontinued Medications: Naproxen (Naproxen) 500 Mg Tablet 500 MG PO Q12H, TAB Patient Instructions Patient Instructions: Follow up with your primary care physician for mild elevation of CALCIUM on blood work of 05/22/19 ONELIA PANDA MD FACP FAC CCDS May 22, 2019 14:12
--- NOTE | 2019-05-22 14:14 | Discharge Inst-Post CATH ---
Discharge Inst-CATH/EP Post Cardiac Cath/EP D/C Inst Follow Up/Plan Follow up with Dr Torres in 2 weeks Follow up with your family physician within one week for evaluation of mildly elevated calcium on blood work of 05/22/19 ACTIVITY * Go Home directly and rest. * Limit activity of the leg (or wrist if it was used) for 7 days including aerobics, swimming, jogging, bicycling, etc. * Restrict stair-climbing for 7 days if possible, if not, climb up with your no n-cath leg, then bring together on the same step. * Avoid lifting, pushing, pulling or excessive movement of the affected ext remity for 7 days. * Customary sexual activity may be resumed after 2 days-use caution not to use a position that strains or causes pain to the affected extremity. * No driving for 24 hours. * NO SMOKING. * Avoid straining for bowel movements for 7 days. * Gentle walking on level ground is allowed. * Returning to work will depend on the type of procedure and the results. Your doctor will discuss this with you. CALL YOUR DOCTOR FOR ANY OF THE FOLLOWING: *If bleeding from the puncture site occurs- Apply gentle pressure to site with clean cloth and call your doctor or EMS. * If a knot or lump forms under the skin, increases in size, or causes pain. * If bruising appears to be worsening or moving further down your leg instead of disappearing. * Temperature above 101 F. CARE OF YOUR GROIN INCISION; * Bruising or purple discoloration of the skin near the puncture site is common. * You may shower only, no bathtub bathing for 5 days. Be careful to avoid slipping as your leg may feel stiff. * If a closure device was used on your femoral artery, please see the attached guide regarding care of the device and your leg. * Leave dressing on FOR 24 hours. CARE OF YOUR WRIST INCISION; * Bruising or purple discoloration of the skin near the puncture site is common. * You may shower. * DO NOT submerge wrist. * Leave dressing on FOR 24 hours. ONELIA TORRES MD [facility] CCDS May 22, 2019 14:14
[2019-05-22] MEDS ORDERED: PATIENT MAY USE OWN MEDS, ALL PO SCH (14:15)
[2019-05-22] MEDS ORDERED: AMLO10TA7 PO (14:16)
[2019-05-22] MEDS ORDERED: amLODIPine 10 MG (NORVASC) TAB PO ONE (14:30)
--- NOTE | 2019-05-22 15:30 | NUR ---
REPORT TO Christiano DRAPER RN.
--- NOTE | 2019-05-22 17:10 | NUR ---
PT HAS HX OF CHRONIC BACK PAIN, RATES PAIN 02/07 AFTER RETURNING FROM WALKING TO RESTROOM. Addendum: 05/22/19 at 1715 by MILI NOVOA RN Amended: Links added.
--- NOTE | 2019-05-22 17:26 | CARDIAC CATHETERIZATION ---
DATE OF SERVICE: 05/22/2019 CARDIAC CATHETERIZATION REPORT The patient is a 63-year-old lady who has symptoms of exertional shortness of breath. She has multiple coronary risk factors. Myocardial perfusion imaging carried out in 09/2018 showed anterolateral ischemia. She had not agreed to cardiac catheterization, but has now agreed to do so because of continuing symptoms. DESCRIPTION OF PROCEDURE: She was brought to the cardiac catheterization laboratory in a fasting state. Right groin was prepared and draped in the usual sterile fashion. A 1% lidocaine was used for local anesthesia. Modified Seldinger technique was used to advance a 5-Belgian sheath in right femoral artery, 5-Belgian JL4 catheter for left coronary angiography, 5-Belgian JR4 catheter was used for right coronary angiography, 5-Belgian pigtail catheter was used for left heart catheterization and left ventricular angiography. A 5-Belgian pigtail catheter was pulled back to the aortic arch and aortic arch angiography was performed. The pigtail catheter was removed. Angiography of the right femoral artery was carried out through the sheath. Mynx was used to achieve hemostasis. HEMODYNAMICS: Left ventricular end-diastolic pressure following coronary angiography was 18 mmHg. There is no significant pressure gradient on pullback across the aortic valve. Ascending aortic pressure was 194/97. CORONARY ANGIOGRAPHY: Left main coronary artery is free of significant coronary artery disease. Left anterior descending, left circumflex and right coronary arteries are free of angiographically significant coronary artery disease. Right coronary artery is dominant. LEFT VENTRICULAR ANGIOGRAPHY: Left ventricular angiography was carried out in right anterior oblique projection. Global left ventricular systolic function normal. No regional wall motion abnormalities are seen. Left ventricular ejection fraction approximately 60%. AORTIC ARCH ANGIOGRAPHY: Aortic arch angiography did not indicate any significant thoracic aortic aneurysm or dissection. The neck arteries, to the extent seen, do not exhibit significant stenoses. The left carotid artery arises from the right brachiocephalic trunk. CONCLUSIONS: 1. No angiographically significant coronary artery disease. 2. Normal global left ventricular systolic function with ejection fraction of approximately 60%. 3. Elevated left ventricular end-diastolic pressure. DISCUSSION AND RECOMMENDATIONS: Based on results of the study, it appears appropriate to continue a conservative approach. Risk factor modification has been reviewed. Outpatient followup is advised. Job ID: [id number] DocumentID: [id number] Dictated Date: 05/22/2019 14:04:57 [employer] Date: 05/22/2019 17:24:53 Dictated By: ONELIA PANDA MD, MA, FACP, FACC, MTDD
== END 2019-05-22 17:30 ==
LOC: CATH 11:59 → SDC 14:26 → CATH 17:30
PROVIDERS: ATTEND Internal Medicine Cardiovascular Disease
DX: I11.9 Hypertensive heart disease without heart failure (principal); I73.9 Peripheral vascular disease, unspecified; E03.9 Hypothyroidism, unspecified; M19.90 Unspecified osteoarthritis, unspecified site; E66.01 Morbid (severe) obesity due to excess calories; F41.8 Other specified anxiety disorders; F31.9 Bipolar disorder, unspecified; Z79.899 Other long term (current) drug therapy; Z88.8 Allergy status to other drugs, medicaments and biological substances; Z90.710 Acquired absence of both cervix and uterus; Z68.41 Body mass index [BMI] 40.0-44.9, adult; Z79.82 Long term (current) use of aspirin; Z83.6 Family history of other diseases of the respiratory system; Z80.49 Family history of malignant neoplasm of other genital organs; Z82.49 Family history of ischemic heart disease and other diseases of the circulatory system
CPT/HCPCS: 36221; 36415; 80053; 80061; 85027; 85610; 85730; 87081; 93458

== ENCOUNTER → 2021-01-08 | Outpatient (CLI) | payer MEDICARE, OTHER ==
[~2021-01-08] MED LIST changes: +ALPR0.5T7 PO; +AMLO-251 PO; +ASEN10TA9 PO; +CRAN1CAP7 PO; +FERR325T18 PO; +OXYB5TAB13 PO; +PRAM0.257 PO; +SODI126M NS; +T-3 PO; +TRM50T PO; +TURM538C PO
--- NOTE | 2021-01-08 10:50 | Diagnostic Imaging Report ---
PROCEDURE: CT urinary tract, rule out kidney stone. TECHNIQUE: Multiple contiguous axial images were obtained through the abdomen and pelvis without the use of intravenous contrast. Auto Exposure Controls were utilized during the CT exam to meet ALARA standards for radiation dose reduction. INDICATION: Frequent urinary tract infections. Microhematuria. COMPARISON: 11/27/2018. FINDINGS: The heart is unremarkable. Subsegmental atelectasis is seen in the right lung base. A prominent calculus is seen in the left renal pelvis measuring 1.8 cm without evidence of associated left-sided hydronephrosis. Numerous bilateral nonobstructing calculi are present with the largest in the left kidney measuring 1.2 cm and the largest on the right measuring 0.6 cm. No perinephric fat stranding is seen. The urinary bladder is nondistended. No bladder calculi are present. Layering debris is seen within the gallbladder lumen. No CT evidence of acute cholecystitis. The liver, spleen, pancreas, and adrenal glands have a normal noncontrast CT appearance. There is no pathologically enlarged mesenteric or retroperitoneal adenopathy. The bowel loops are nondilated. The appendix is visualized in the right lower quadrant and has a normal appearance. Scattered diverticuli are seen in the descending and sigmoid colon without evidence of acute diverticulitis. There is no free fluid or free air. There has been interval increase in vertebral body height loss at the L1 level with vertebral plana now present. There is bony retropulsion of 0.7 cm with subsequent severe spinal canal stenosis at the T12-L1 level. Relatively stable height loss is noted at the T12 vertebral body. There is no free air, loculated collection, or adenopathy in the pelvis. IMPRESSION: 1. Prominent calculus in the left renal pelvis measuring 1.8 cm without evidence of hydronephrosis. Relatively moderate burden of nonobstructing calculi are seen in the left kidney. Findings may suggest developing staghorn calculus. 2. Scattered nonobstructing calculi in the right kidney. No evidence of right-sided hydronephrosis. 3. Cholelithiasis without CT evidence of acute cholecystitis. 4. Interval increase in vertebral body height loss at the L1 level resulting in vertebral plana. Associated bony retropulsion is present at the T12-L1 level with severe spinal canal stenosis. 5. Scattered diverticuli without evidence of acute diverticulitis. Dictated by: Dictated on workstation # [id number]
== END ==
LOC: RAD 09:41
PROVIDERS: ATTEND Family Medicine
DX: N20.0 Calculus of kidney (principal); N39.0 Urinary tract infection, site not specified; K80.20 Calculus of gallbladder without cholecystitis without obstruction; M48.05 Spinal stenosis, thoracolumbar region
CPT/HCPCS: 74176

== ENCOUNTER 2021-08-04 12:23 | Inpatient (IN) | payer MEDICARE, OTHER ==
[~2021-08-04] VITALS: Ht 160 cm; Wt 136.6 kg
[~2021-08-04 12:23] MED LIST changes: -ASEN10TA9 PO
[2021-08-04 14:18] LABS: BILIRUBIN,URINE NEGATIVE (NEGATIVE); CLARITY,URINE CLEAR; COLOR,URINE YELLOW; GLUCOSE, URINE (UA) NEGATIVE (NEGATIVE); KETONES,URINE 1+ (NEGATIVE); LEUKOCYTE ESTERASE ,URINE TRACE (NEGATIVE); NITRITE,URINE NEGATIVE (NEGATIVE); PROTEIN,URINE NEGATIVE (NEGATIVE)
[2021-08-04 14:32] LABS: BASOPHILS % (AUTO) 0 % (0-10); EOSINOPHILS # (AUTO) 0.3 10^3/uL (0.0-0.3); EOSINOPHILS % (AUTO) 2 % (0-10); HEMATOCRIT 44 % (35-52); HEMOGLOBIN 14.4 g/dL (11.5-16.0); LYMPHOCYTES # (AUTO) 0.9 10^3/uL (1.0-4.0); LYMPHOCYTES % (AUTO) 8 % (12-44); MEAN CORPUSCULAR HEMOGLOBIN 29 pg (25-34); MEAN CORPUSCULAR HGB CONC 33 g/dL (32-36); MEAN CORPUSCULAR VOLUME 88 fL (80-99); MEAN PLATELET VOLUME 9.3 fL (9.0-12.2); MONOCYTES # (AUTO) 1.1 10^3/uL (0.0-1.0); MONOCYTES % (AUTO) 10 % (0-12); NEUTROPHILS # (AUTO) 8.9 10^3/uL (1.8-7.8); NEUTROPHILS % (AUTO) 79 % (42-75); PLATELET COUNT 312 10^3/uL (130-400); WHITE BLOOD COUNT 11.3 10^3/uL (4.3-11.0)
[2021-08-04 14:40] LABS: ALBUMIN 3.9 GM/DL (3.2-4.5); POTASSIUM 5.6 MMOL/L (3.6-5.0)
[2021-08-04 14:41] LABS: CALCIUM 9.3 MG/DL (8.5-10.1)
[2021-08-04 14:43] LABS: TOTAL PROTEIN 8.2 GM/DL (6.4-8.2)
[2021-08-04 14:44] LABS: BILIRUBIN,TOTAL 0.6 MG/DL (0.1-1.0)
[2021-08-04 14:46] LABS: CREATININE SERUM 0.72 MG/DL (0.60-1.30)
[2021-08-04 14:49] LABS: BACTERIA,URINE FEW /HPF
[2021-08-04] MEDS ORDERED: NS IV 1000 ML 1,000 ML IV SCH (15:45)
--- NOTE | 2021-08-04 16:02 | ED General ---
General Chief Complaint: General Problems/Pain Stated Complaint: WEAK Nursing Triage Note: pt presents to ED via EMS from home with c/o multiple falls, increased weakness, lymphedema, and wanting to go to a residential facility. pt c/o right knee pain. Source of Information: Patient Exam Limitations: No Limitations History of Present Illness Date Seen by Provider: Aug 04, 2021 Time Seen by Provider: 13:05 Initial Comments This is 66-year-old woman presents to the emergency room via EMS after having multiple falls in the home and progressive decline in function over the past week. She reports being wheelchair-bound over the past 6 months and becoming bedbound over the last week. She reports contacting the fire department 7 different times yesterday to assist her with moving about the home. She has had multiple falls and has bruising of the upper extremities and pain of the right knee. She has severe lymphedema of the lower extremities. She has had a consultation with a lymphedema specialist in [place] and now wraps her legs with padded compression wraps. She is so immobile that she urinates on towels because she cannot get up to the bathroom. She lives alone and does not have consistent help. She believes she needs admission to a care facility as she is unable to care for herself any longer. Allergies and Home Medications Allergies Uncoded Allergies: MERCURY (Allergy, Mild, 08/24/10) Patient Home Medication List Home Medication List Reviewed: Yes Alprazolam (Alprazolam) 0.5 Mg Tablet, 1 MG PO BID, (Reported) Entered as Reported by: MINOO YOU on 05/22/19 1242 Last Action: Continued Amlodipine Besylate (Amlodipine Besylate) 10 Mg Tablet, 10 MG PO DAILY Prescribed by: ONELIA PANDA on 05/22/19 1416 Last Action: Continued Asenapine Maleate (Saphris) 10 Mg Tab.subl, 15 MG PO HS, (Reported) Entered as Reported by: MINOO YOU on 05/22/19 1242 Biotin (Biotin) 1,000 Mcg Tablet, 1,000 MCG PO BID, (Reported) Entered as Reported by: MINOO YOU on 05/22/19 1312 Citalopram Hydrobromide (Celexa) 40 Mg Tablet, 40 MG PO DAILY, (Reported) Entered as Reported by: SYEDA NOVAK on 12/22/17 1444 Cranberry Conc/Ascorbic Acid (Cranberry Plus Vitamin C Sftgl) 1 Each Capsule, 1 CAP PO BID, (Reported) Entered as Reported by: MINOO YOU on 05/22/19 1312 Dorzolamide HCl/Timolol Maleat (Dorzolamide-Timolol Eye Drops) 10 Ml Drops, 1 DROP OU BID, (Reported) Entered as Reported by: SYEDA NOVAK on 12/22/17 1444 Ferrous Sulfate (Ferrous Sulfate) 325 Mg Tablet, 325 MG PO BID, (Reported) Entered as Reported by: MINOO YOU on 05/22/19 1312 Lamotrigine (Lamictal) 200 Mg Tab, 400 MG PO DAILY, (Reported) Entered as Reported by: SYEDA NOVAK on 12/22/17 1447 Latanoprost (Xalatan) 2.5 Ml Drops, 1 DROPS OU HS, (Reported) Entered as Reported by: SYEDA NOVAK on 12/22/17 1447 Last Action: Continued Oxcarbazepine (Oxcarbazepine) 300 Mg Tablet, 600 MG PO HS, (Reported) Entered as Reported by: SYEDA NOVAK on 12/22/17 1444 Last Action: Continued Oxybutynin Chloride (Oxybutynin Chloride) 5 Mg Tablet, 5 MG PO BID, (Reported) Entered as Reported by: MINOO YOU on 05/22/19 1242 Last Action: Continued Pramipexole Di-HCl (Pramipexole Dihydrochloride) 0.25 Mg Tablet, 0.5 MG PO BID, (Reported) Entered as Reported by: MINOO YOU on 05/22/19 1242 Last Action: Converted Sodium Chloride (Saline Nasal Mist) 126 Ml Mist, 126 ML NS, (Reported) Entered as Reported by: MINOO YOU on 05/22/19 1245 Last Action: Converted Tramadol HCl (Tramadol HCl) 50 Mg Tablet, 50 MG PO DAILY PRN for PAIN-MODERATE, (Reported) Entered as Reported by: MINOO YOU on 05/22/19 1332 Turmeric Root Extract (Turmeric) 538 Mg Capsule, 538 MG PO BID, (Reported) Entered as Reported by: MINOO YOU on 05/22/19 1312 [T-3] 90 TAB, 90 MCG PO DAILY, (Reported) Entered as Reported by: MINOO YOU on 05/22/19 6454 Review of Systems Review of Systems Constitutional: see HPI EENTM: no symptoms reported Respiratory: no symptoms reported Cardiovascular: no symptoms reported Gastrointestinal: no symptoms reported Genitourinary: no symptoms reported : No Musculoskeletal: see HPI Skin: no symptoms reported Psychiatric/Neurological: No Symptoms Reported Hematologic/Lymphatic: No Symptoms Reported Past Tzrqcpp-Wqyvdo-Dscjcv Hx Patient Social History Tobacco Use?: No Substance use?: No Alcohol Use?: No Immunizations Up To Date Tetanus Booster (TDap): More than 5yrs Influenza Vaccine Up-to-Date: No; Not Current COVID19 Vaccine 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: [employer] Seasonal Allergies Seasonal Allergies: Yes Past Medical History Surgeries: Yes (NECK- RUSSELL REMOVAL, PRECANCEROUS CELLS REMOVED FROM PELVIC AREA, ) Hysterectomy, Orthopedic Respiratory: No Cardiac: Yes High Cholesterol, Hypertension Neurological: No Reproductive Disorders: No Sexually Transmitted Disease: No Bladder Infection, Kidney Stones, UTI-Chronic Gastrointestinal: Yes Chronic Diarrhea Musculoskeletal: Yes (NARROWING OF L3-L5, OSTEOARTHRITIS) Arthritis, Chronic Back Pain Endocrine: Yes Hypothyroidsim Glaucoma Cancer: Yes Uterine What Type of Treatment Did You: Surgical Intervention Psychosocial: Yes ADD/ADHD, Anxiety, Bipolar, Depression Integumentary: No Blood Disorders: No Adverse Reaction/Blood Tranf: No Family Medical History Alcoholism 03 FATHER, Age:95 03 MOTHER, , Age:60 years and older 09 BROTHER, Age:70 09 BROTHER, , Age:40's - 50 09 BROTHER, Age:65 09 BROTHER, Age:61 09 SISTER, Age:58 Cancer 03 MOTHER, , Age:60 years and older 09 BROTHER, , Age:40's - 50 Cataract 03 FATHER, Age:95 Family history: Arthritis 09 SISTER, Age:58 Family history: Gastrointestinal disease 09 BROTHER, Age:61 Family history: Thyroid disorder 09 SISTER, Age:58 Headache 03 FATHER, Age:95 03 MOTHER, , Age:60 years and older 09 BROTHER, Age:70 09 BROTHER, , Age:40's - 50 09 BROTHER, Age:65 09 BROTHER, Age:61 09 SISTER, Age:58 History of drug abuse Visual impairment No Family History of: Abdominal aortic aneurysm Tejinder's disease Aphasia Cancer of colon Chest pain Congenital heart disease Congestive heart failure Cystic fibrosis Dementia Dysphagia Family history: Allergy Family history: Alzheimer's disease Family history: Asthma Family history: Breast disease Family history: Cardiovascular disease Family history: Coronary thrombosis Family history: Diabetes mellitus Family history: Glaucoma Family history: Hypertension Family history: Osteoporosis Hearing loss Heart disease Hereditary disease History of - anemia History of - respiratory disease Human immunodeficiency virus (HIV) seropositivity Hypercholesterolemia Infertile Kidney disease Malignant neoplasm of lung Myocardial infarction Parkinson's disease Prostate cancer Psychotic disorder Seizure disorder Stroke Tuberculosis Physical Exam Vital Signs Vital Signs - First Documented 08/04/21 12:25 Temp 36.6 Pulse 76 Resp 18 B/P (MAP) 192/81 (118) Pulse Ox 92 O2 Delivery Room Air Capillary Refill : Less Than 3 Seconds Height, Weight, BMI Height: 5'6.00" Weight: 254lbs. 0oz. 115.126353lr; 53.00 BMI Method:Stated General Appearance: No Apparent Distress, WD/WN, Obese HEENT: PERRL/EOMI, Normal ENT Inspection Neck: Normal Inspection Respiratory: Lungs Clear, Normal Breath Sounds, No Accessory Muscle Use Cardiovascular: Regular Rate, Rhythm, No Murmur Gastrointestinal: Non Tender, Soft Back: Other (Subtle skin irritation/erythema suggestive of early decubitus ulcers on the back) Extremity: Other (Marked edema bilaterally. 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 Norm as Tested Skin: Normal Color, Warm/Dry, Other (See back above) Progress/Results/Core Measures Suspected Sepsis SIRS Temperature: Pulse: 76 Respiratory Rate: 18 Laboratory Tests 08/04/21 14:25: White Blood Count 11.3H Blood Pressure 192 /81 Mean: 118 Laboratory Tests 08/04/21 14:25: Creatinine 0.72, Platelet Count 312, Total Bilirubin 0.6 Results/Orders Lab Results Laboratory Tests Test 08/04/21 14:14 08/04/21 14:25 Range/Units Urine Color YELLOW Urine Clarity CLEAR Urine pH 7.0 5-9 Urine Specific [place] 1.015 L 1.016-1.022 Urine Protein NEGATIVE NEGATIVE Urine Glucose (UA) NEGATIVE NEGATIVE Urine Ketones 1+ H NEGATIVE Urine Nitrite NEGATIVE NEGATIVE Urine Bilirubin NEGATIVE NEGATIVE Urine Urobilinogen 0.2 < = 1.0 MG/DL Urine Leukocyte Esterase TRACE H NEGATIVE Urine RBC (Auto) NEGATIVE NEGATIVE Urine RBC NONE /HPF Urine WBC 2-5 /HPF Urine Squamous Epithelial Cells 2-5 /HPF Urine Crystals NONE /LPF Urine Bacteria FEW H /HPF Urine Casts NONE /LPF Urine Mucus NEGATIVE /LPF Urine Culture Indicated YES White Blood Count 11.3 H 4.3-11.0 10^3/uL Red Blood Count 5.00 3.80-5.11 10^6/uL Hemoglobin 14.4 11.5-16.0 g/dL Hematocrit 44 35-52 % Mean Corpuscular Volume 88 80-99 fL Mean Corpuscular Hemoglobin 29 25-34 pg Mean Corpuscular Hemoglobin Concent 33 32-36 g/dL Red Cell Distribution Width 13.7 10.0-14.5 % Platelet Count 312 130-400 10^3/uL Mean Platelet Volume 9.3 9.0-12.2 fL Immature Granulocyte % (Auto) 0 % Neutrophils (%) (Auto) 79 H 42-75 % Lymphocytes (%) (Auto) 8 L 12-44 % Monocytes (%) (Auto) 10 0-12 % Eosinophils (%) (Auto) 2 0-10 % Basophils (%) (Auto) 0 0-10 % Neutrophils # (Auto) 8.9 H 1.8-7.8 10^3/uL Lymphocytes # (Auto) 0.9 L 1.0-4.0 10^3/uL Monocytes # (Auto) 1.1 H 0.0-1.0 10^3/uL Eosinophils # (Auto) 0.3 0.0-0.3 10^3/uL Basophils # (Auto) 0.0 0.0-0.1 10^3/uL Immature Granulocyte # (Auto) 0.0 0.0-0.1 10^3/uL Sodium Level 126 L 135-145 MMOL/L Potassium Level 5.6 H 3.6-5.0 MMOL/L Chloride Level 91 L 98-107 MMOL/L Carbon Dioxide Level 27 21-32 MMOL/L Anion Gap 8 5-14 MMOL/L Blood Urea Nitrogen 9 7-18 MG/DL Creatinine 0.72 0.60-1.30 MG/DL Estimat Glomerular Filtration Rate 81 BUN/Creatinine Ratio 13 Glucose Level 99 70-105 MG/DL Calcium Level 9.3 8.5-10.1 MG/DL Corrected Calcium 9.4 8.5-10.1 MG/DL Total Bilirubin 0.6 0.1-1.0 MG/DL Aspartate Amino Transf (AST/SGOT) 65 H 5-34 U/L Alanine Aminotransferase (ALT/SGPT) 26 0-55 U/L Alkaline Phosphatase 97 40-136 U/L B-Type Natriuretic Peptide 58.0 <100.0 PG/ML Total Protein 8.2 6.4-8.2 GM/DL Albumin 3.9 3.2-4.5 GM/DL My Orders Orders - RAMON PEREZ MD Cbc With Automated Diff (08/04/21 13:05) Comprehensive Metabolic Panel (08/04/21 13:05) Ua Culture If Indicated (08/04/21 13:05) Ed Iv/Invasive Line Start (08/04/21 13:05) Bnp Rolo (08/04/21 13:13) Urine Culture (08/04/21 14:14) Ns Iv 1000 Ml (Sodium Chloride 0.9%) (08/04/21 15:45) Knee, Right, 3 Views (08/04/21 15:48) Vital Signs/I&O 08/04/21 12:25 Temp 36.6 Pulse 76 Resp 18 B/P (MAP) 192/81 (118) Pulse Ox 92 O2 Delivery Room Air Capillary Refill : Less Than 3 Seconds Blood Pressure Mean: 118 Progress Note : Progress Note Patient does not appear safe to return home. She has diagnoses that require management as well such as her hyponatremia and hyperkalemia. Treatment was started with IV normal saline in the ER. Case was reviewed with Dr. Martin who agrees with admission. CODE STATUS was discussed and patient wishes to remain full code at this time. Diagnostic Imaging Diagonstic Imaging: Xray Plain Films/CT/US/NM/MRI: knee Comments NAME: ALBARO WORKMAN MED REC#: [id number] PT STATUS: REG ER : 1955 PHYSICIAN: RAMON PEREZ MD ADMIT DATE: 08/04/21/ER Signed Date of Exam:08/04/21 KNEE, RIGHT, 3 VIEWS INDICATION: Right knee pain AP, oblique, and lateral views of the right knee are obtained. There are advanced degenerative findings of the right knee with severe medial and lateral joint space narrowing with patellofemoral osteophyte formation. There is no acute fracture. IMPRESSION: Extensive degenerative changes of the right knee with no acute appearing fracture. Dictated by: Dictated on workstation # [id number] Dict: 08/04/21 1625 Trans: 08/04/21 1640 [facility] [id number] Interpreted by: IRENE BOX MD Electronically signed by: IRENE BOX MD 08/04/21 1640 Departure Communication (Admissions) Time/Spoke to Admitting Phy: 15:55 Dr. Martin Impression Primary Impression: Hyponatremia Additional Impressions: Hyperkalemia Lymphedema of lower extremity Qualified Codes: I89.0 - Lymphedema, not elsewhere classified Frequent falls Urinary tract infection Qualified Codes: N39.0 - Urinary tract infection, site not specified Debility Morbid obesity Intertrigo Decubitus ulcers Qualified Codes: L89.141 - Pressure ulcer of left lower back, stage 1 Disposition: 09 ADMITTED INPATIENT Condition: Improved Admissions Decision to Admit Reason: Admit from ER (General) Decision to Admit/Date: Aug 04, 2021 Time/Decision to Admit Time: 15:55 Departure-Patient Inst. Referrals: MEL MELENDREZ MD (PCP/Family) Primary Care Physician Copy Copies To 1: MEL MELENDREZ MD, JOSHUA T MD Aug 04, 2021 16:02
--- NOTE | 2021-08-04 16:27 | Diagnostic Imaging Report ---
INDICATION: Right knee pain AP, oblique, and lateral views of the right knee are obtained. There are advanced degenerative findings of the right knee with severe medial and lateral joint space narrowing with patellofemoral osteophyte formation. There is no acute fracture. IMPRESSION: Extensive degenerative changes of the right knee with no acute appearing fracture. Dictated by: Dictated on workstation # [id number]
[2021-08-04 17:00] VITALS: BP 153/82
[2021-08-04] MEDS ORDERED: FLU QUAD HIGH DOSE 240 MCG/0.7 ML 2021-22 (FLUZONE) IM ONE (18:45)
[2021-08-04] MEDS: ENOXAPARIN 60 MG/0.6 ML (LOVENOX) SYR SC SCH (19:16)
[2021-08-04] MEDS: NS IV 1000 ML 1,000 ML IV SCH (19:16)
[2021-08-04] MEDS ORDERED: LOPERAMIDE 2 MG (IMODIUM) TABLET PO PRN (19:30)
[2021-08-04] MEDS ORDERED: LACTULOSE SYRUP 10GM/15ML (ENULOSE) 30ML UDC PO PRN (19:30)
[2021-08-04] MEDS ORDERED: ALPRAZolam 0.25 MG (XANAX) TAB PO PRN (19:30)
[2021-08-04] MEDS ORDERED: cloNIDine 0.1 MG (CATAPRES) TAB PO PRN (19:30)
[2021-08-04] MEDS ORDERED: ONDANSETRON 4 MG (ZOFRAN) ORAL DISSOLVE TAB PO PRN (19:30)
[2021-08-04] MEDS ORDERED: diphenhydrAMINE 25 MG TAB (BENADRYL) PO PRN (19:30)
[2021-08-04] MEDS ORDERED: CALCIUM CARBONATE 500 MG (TUMS) TAB.CHEW PO PRN (19:30)
[2021-08-04] MEDS ORDERED: BISACODYL 10 MG SUPP (DULCOLAX) PR PRN (19:30)
[2021-08-04] MEDS ORDERED: MELATONIN 3 MG TABLET PO PRN (19:30)
[2021-08-04] MEDS ORDERED: DOCUSATE SODIUM 100 MG (COLACE) CAP PO PRN (19:30)
[2021-08-04] MEDS ORDERED: guaiFENesin/CODEINE (ROBITUSSIN AC) 10ML UDC PO PRN (19:30)
[2021-08-04] MEDS ORDERED: morphine INJ 10 MG/ML 1ML (SYR OR VIAL) IVP PRN (19:30)
[2021-08-04] MEDS ORDERED: ONDANSETRON 4 MG/2 ML (SDV) Z0FRAN IVP PRN (19:30)
[2021-08-04] MEDS ORDERED: SALINE NASAL SPRAY (OCEAN) 45 ML BTL PRN (19:30)
[2021-08-04 19:51] VITALS: BP 143/60
[2021-08-04] MEDS: RT-ALBUTEROL SULF 2.5 MG/3 ML PRE-MIX VIAL INH SCH ×2 (20:19→21:14)
[2021-08-04] MEDS ORDERED: OXcarbazepine (TRILEPTAL) 300 MG TAB PO SCH (21:00)
[2021-08-04] MEDS ORDERED: RT-ALBUTEROL SULF 2.5 MG/3 ML PRE-MIX VIAL ONE (21:08)
[2021-08-04] MEDS: OXYBUTYNIN (DITROPAN) 5 MG TAB PO SCH (23:00)
[2021-08-04] MEDS: HYDROcodone/APAP 5 MG/325 MG (LORTAB) TAB PO PRN (23:01)
[2021-08-04] MEDS: ALPRAZolam 0.5 MG (XANAX) TAB PO SCH (23:01)
[2021-08-04] MEDS: CEPHALEXIN 250 MG (KEFLEX) CAP PO SCH (23:01)
[2021-08-04] MEDS: LATANOPROST 0.005% (XALATAN) OPHTH SOLN 2.5 ML OU SCH (23:03)
[2021-08-04] MEDS: polyethylene glycoL POWDER 17 GM (MIRALAX) PACK PO SCH (23:03)
[2021-08-04] MEDS: SENNA W/DOCUSATE (SENOKOT S) TABLET PO SCH (23:03)
[2021-08-04 23:05] VITALS: BP 156/77
[2021-08-04] MEDS: PRAMIPEXOLE 0.5 MG TAB (MIRAPEX) PO SCH (23:07)
[2021-08-05 04:05] VITALS: BP 125/68
[2021-08-05 05:47] LABS: POTASSIUM 3.6 MMOL/L (3.6-5.0)
[2021-08-05 05:49] LABS: CALCIUM 8.1 MG/DL (8.5-10.1)
[2021-08-05 05:53] LABS: CREATININE SERUM 0.72 MG/DL (0.60-1.30)
[2021-08-05] MEDS: ENOXAPARIN 60 MG/0.6 ML (LOVENOX) SYR SC SCH ×2 (06:00→17:54)
[2021-08-05] MEDS ORDERED: fluCOnazole (DIFLUCAN) 100 MG TAB PO ONE (06:45)
[2021-08-05 07:56] VITALS: BP 151/76
[2021-08-05] MEDS: RT-ALBUTEROL SULF 2.5 MG/3 ML PRE-MIX VIAL INH SCH ×3 (08:34→21:12)
[2021-08-05] MEDS: amLODIPine 10 MG (NORVASC) TAB PO SCH (08:53)
[2021-08-05] MEDS: HYDROcodone/APAP 5 MG/325 MG (LORTAB) TAB PO PRN (08:53)
[2021-08-05] MEDS: CEPHALEXIN 250 MG (KEFLEX) CAP PO SCH ×4 (08:53→19:56)
[2021-08-05] MEDS: SENNA W/DOCUSATE (SENOKOT S) TABLET PO SCH ×2 (08:53→20:03)
[2021-08-05] MEDS: polyethylene glycoL POWDER 17 GM (MIRALAX) PACK PO SCH ×2 (08:53→20:03)
[2021-08-05] MEDS: PRAMIPEXOLE 0.5 MG TAB (MIRAPEX) PO SCH (08:54)
[2021-08-05] MEDS: fluCOnazole (DIFLUCAN) 100 MG TAB PO SCH (08:54)
[2021-08-05] MEDS: OXYBUTYNIN (DITROPAN) 5 MG TAB PO SCH ×2 (08:54→19:57)
[2021-08-05] MEDS: ALPRAZolam 0.5 MG (XANAX) TAB PO SCH ×2 (09:05→19:56)
[2021-08-05] MEDS ORDERED: CYCL1DRO OU (11:53)
[2021-08-05] MEDS ORDERED: TRAM50TA3 PO (11:53)
[2021-08-05] MEDS ORDERED: PANT40TA52 PO (11:53)
[2021-08-05] MEDS ORDERED: GUAI-370 PO (11:53)
[2021-08-05] MEDS ORDERED: [UNRECOGNIZED DRUG - MIXTURE] PO (11:53)
[2021-08-05] MEDS ORDERED: NAPR-915 PO (11:53)
[2021-08-05] MEDS ORDERED: BIOT10005 PO (11:53)
[2021-08-05] MEDS ORDERED: HYDR453.3 TOP (11:53)
[2021-08-05] MEDS ORDERED: LAMO200T5 PO (11:53)
[2021-08-05] MEDS ORDERED: LATA5DRO OU (11:53)
[2021-08-05] MEDS ORDERED: VIT1CAPS14 PO (11:53)
[2021-08-05] MEDS ORDERED: AMLO-251 PO (11:53)
[2021-08-05] MEDS ORDERED: MELO15TA39 PO (11:53)
[2021-08-05] MEDS ORDERED: [UNRECOGNIZED DRUG - OTHER] PO (11:53)
[2021-08-05] MEDS ORDERED: CIPR500T5 PO (11:53)
[2021-08-05] MEDS ORDERED: ASPI-1238 PO (11:53)
[2021-08-05 12:00] VITALS: BP 153/71
[2021-08-05] MEDS: NS IV 1000 ML 1,000 ML IV SCH (13:55)
--- NOTE | 2021-08-05 14:14 | History & Physical-Hospitalist ---
History of Present Illness HPI/Chief Complaint Terrie Steele is a 66 year old female with PMH HTN, HLD, super obesity, lymphedema, bipolar disorder, anxiety, depression, who presented with weakness. She has not been able to ambulate safely. She has been falling at home. She has been bedbound for the past week. She says she called EMS six times yesterday for assistance. She has had lower extremity lymphedema. She is concerned that she is not able to take care of herself at home. She denies fevers and chills. She denies shortness of breath and cough. She denies chest pain and palpitations. She is not having any abdominal pain, nausea, or vomiting. Source: patient Exam Limitations: no limitations Date Seen 08/05/21 Time Seen by a Provider: 09:50 Attending Physician Pop Carlson MD PCP Inderjit Cox MD Referring Physician Date of Admission Aug 04, 2021 at 15:58 Home Medications & Allergies Home Medications Reviewed patient Home Medication Reconciliation performed by pharmacy medication reconciliations topography technician and/or nursing. Patients Allergies have been reviewed. Allergies Allergies Uncoded Allergies MERCURY ( Allergy, Mild, 08/24/10) Past Wgigutc-[place]gwy-Gryzfa Hx Patient Social History Tobacco Use?: No Use of E-Cig and/or Vaping dev: No Substance use?: No Alcohol Use?: No Pt feels they are or have been: No Immunizations Up To Date Date of Influenza Vaccine: Mar 30, 2019 First/Initial COVID19 Vaccinat: SEP 2020 Second COVID19 Vaccination Felipe: OCTOBER 2020 Tetanus Booster (TDap): More Than 5 Years Hepatitis A: No Hepatitis B: No Date of Pneumonia Vaccine: Apr 01, 2018 Seasonal Allergies Seasonal Allergies: Yes Current Status status: No Advance Directives: No Communicates: Verbally Primary Language: Amharic Preferred Spoken Language: Amharic Is interpretation needed?: No Implanted or Applied Medical D: Orthopedic hardware Past Medical History Surgeries: Hysterectomy, Orthopedic High Cholesterol, Hypertension Sexually Transmitted Disease: No Bladder Infection, Kidney Stones, UTI-Chronic Chronic Diarrhea Arthritis, Chronic Back Pain Hypothyroidsim Glaucoma Uterine What Type of Treatment Did You: Surgical Intervention ADD/ADHD, Anxiety, Bipolar, Depression Blood Disorders: No Adverse Reaction/Blood Tranf: No Family Medical History Alcoholism 03 FATHER, Age:95 03 MOTHER, , Age:60 years and older 09 BROTHER, Age:70 09 BROTHER, , Age:40's - 50 09 BROTHER, Age:65 09 BROTHER, Age:61 09 SISTER, Age:58 Cancer 03 MOTHER, , Age:60 years and older 09 BROTHER, , Age:40's - 50 Cataract 03 FATHER, Age:95 Family history: Arthritis 09 SISTER, Age:58 Family history: Gastrointestinal disease 09 BROTHER, Age:61 Family history: Thyroid disorder 09 SISTER, Age:58 Headache 03 FATHER, Age:95 03 MOTHER, , Age:60 years and older 09 BROTHER, Age:70 09 BROTHER, , Age:40's - 50 09 BROTHER, Age:65 09 BROTHER, Age:61 09 SISTER, Age:58 History of drug abuse Visual impairment No Family History of: Abdominal aortic aneurysm Tejinder's disease Aphasia Cancer of colon Chest pain Congenital heart disease Congestive heart failure Cystic fibrosis Dementia Dysphagia Family history: Allergy Family history: Alzheimer's disease Family history: Asthma Family history: Breast disease Family history: Cardiovascular disease Family history: Coronary thrombosis Family history: Diabetes mellitus Family history: Glaucoma Family history: Hypertension Family history: Osteoporosis Hearing loss Heart disease Hereditary disease History of - anemia History of - respiratory disease Human immunodeficiency virus (HIV) seropositivity Hypercholesterolemia Infertile Kidney disease Malignant neoplasm of lung Myocardial infarction Parkinson's disease Prostate cancer Psychotic disorder Seizure disorder Stroke Tuberculosis Review of Systems Constitutional: weakness EENTM: no symptoms reported Respiratory: no symptoms reported Cardiovascular: no symptoms reported Gastrointestinal: no symptoms reported Genitourinary: incontinence Musculoskeletal: no symptoms reported Skin: no symptoms reported Psychiatric/Neurological: No Symptoms Reported Physical Exam Physical Exam Vital Signs Vital Signs - First Documented 08/04/21 08/05/21 12:25 08:00 Temp 36.6 Pulse 76 Resp 18 B/P (MAP) 192/81 (118) Pulse Ox 92 O2 Delivery Room Air O2 Flow Rate 3.00 Capillary Refill : Less Than 3 Seconds Height, Weight, BMI Height: 5'6.00" Weight: 254lbs. 0oz. 115.125864hm; 53.35 BMI Method:Stated General Appearance: No Apparent Distress, Chronically ill, Obese HEENT: PERRL/EOMI, Pharynx Normal Neck: Normal Inspection, Supple Respiratory: Lungs Clear, Normal Breath Sounds, No Respiratory Distress Cardiovascular: Regular Rate, Rhythm, No Murmur Gastrointestinal: Normal Bowel Sounds, Non Tender, Soft Extremity: No Inflammation; Pedal Edema, Swelling Neurologic/Psychiatric: Alert, Oriented x3, Motor Weakness Results Results/Procedures Labs Laboratory Tests 08/04/21 14:25 08/05/21 05:20 Patient resulted labs reviewed. Imaging: Reviewed Imaging Report Assessment/Plan Admission Diagnosis Hyponatremia Admission Status: Inpatient Order (span 2 midnights) Reason for Inpatient Admission: Dehydration Urinary tract infection Lymphedema Deility Assessment and Plan Hyponatremia Dehydration Urinary tract infection Lymphedema Recurrent falls Decubitus ulcers Debility Super obesity HTN HLD IV fluids Urine culture pending Antibiotics PT/OT Social work consulted Wound care consulted Diagnosis/Problems Diagnosis/Problems (1) Urinary tract infection Status: Acute Qualifiers: Urinary tract infection type: site unspecified Hematuria presence: without hematuria Qualified Codes: N39.0 - Urinary tract infection, site not specified (2) Frequent falls Status: Acute (3) Lymphedema of lower extremity Status: Acute Qualifiers: Laterality: bilateral Qualified Codes: I89.0 - Lymphedema, not elsewhere classified (4) Hyponatremia Status: Acute (5) Decubitus ulcers Status: Acute Qualifiers: Pressure injury location: lower back Pressure injury stage: stage 1 Laterality: left Qualified Codes: L89.141 - Pressure ulcer of left lower back, stage 1 (6) Debility Status: Acute (7) Hyperkalemia Status: Resolved Resolution Date/Time: 08/05/21 @ 15:00 (8) Super obesity Status: Chronic POP CARLSON MD Aug 05, 2021 14:13
--- NOTE | 2021-08-05 14:41 | Occupational Therapy Eval ---
OT Evaluation-General/PLF Medical Diagnosis Admission Date Aug 04, 2021 at 15:58 Medical Diagnosis: UTI, debility Onset Date: Aug 04, 2021 Therapy Diagnosis Therapy Diagnosis: decreased ADL status, weakness Height/Weight Height (Feet): 5 Height (Inches): 6.00 Weight (Pounds): 254 Weight (Ounces): 0 Precautions Precautions/Isolations: Fall Prevention, Standard Precautions Referral Physician: Mario Referral Reason: Evaluation/Treatment Medical History Additional Medical History Surgeries: Hysterectomy, Orthopedic High Cholesterol, Hypertension Sexually Transmitted Disease: No Bladder Infection, Kidney Stones, UTI-Chronic Chronic Diarrhea Arthritis, Chronic Back Pain Hypothyroidsim Glaucoma Uterine What Type of Treatment Did You: Surgical Intervention ADD/ADHD, Anxiety, Bipolar, Depression Current History ED via EMS after multiple falls and progressive decline over the last week. She has been w/c bound for ~6 months and bed bound over the last week. Social History Home: [facility] Current Living Status: Alone Entry Into Home: Ramp only uses 1st floor. ADL-Prior Level of Function SCALE: Activities may be completed with or without assistive devices. 3-Rtxnugborm-cllfgel completes the activity by him/herself with no assistance from a helper. 5-Set-up or Clean-up Assistance-helper sets up or cleans up; patient completes activity. [place]inne assists only prior to or following the activity. 4-Supervision or Touching Assistance-helper provides verbal cues and/or touching/steadying and/or contact guard assistance as patient completes activity. Assistance may be provided throughout the activity or intermittently. 3-Partial/Moderate Assistance-helper does LESS THAN HALF the effort. Corinne lifts, holds or supports trunk or limbs, but provides less than half the effort. 2-Substantial/Maximal Assistance-helper does MORE THAN HALF the effort. [place]inne lifts or holds trunk or limbs and provides more than half the effort. 3-Mlrauswqo-qynfzx does ALL the effort. Patient does none of the effort to complete the activity. Or, the assistance of 2 or more helpers is required for the patient to complete the activity. If activity was not attempted, code reason: 7-Patient Refused. 9-Not Applicable-not attempted and the patient did not perform the activity before the current illness, exacerbation or injury. 10-Not Attempted due to Environmental Limitations-(lack of equipment, weather restraints, etc.). 88-Not Attempted due to Medical Conditions or Safety Concerns. ADL PLOF Comments Pt reports being bed bound over the last week and w/c bound over the last 6 months. Prior to a week ago, she was able to complete sponge baths ind ependently, hasn't gotten into the shower for a year. She has difficulty with dressing and toileting, but was able to manage with oversized clothes and slip on shoes. She was unable to put on socks. Self Care: Needed Some Help Functional Cognition: Independent DME/Equipment: Bath Chair, Shower DME/Equipment Comments w/c OT Current Status Subjective Pt in bed, agreeable to OT evaluation. She reports some pain in R knee but didn't provide pain rating. Mental Status/Objective Patient Orientation: Person, Place, Situation Attachments: IV, Oxygen, Other-See Comments (Arthur) Current Hand Dominance: Right Upper Extremity ROM WFL, BUE shoulder flexion to approx 140 degrees Upper Extremity Coordination WFL Upper Extremity Sensation WFL BUEs Upper Extremity Strength grossly 3+/5 ADL-Treatment Eating (QC): 6 (Per pt report.) Oral Hygiene (QC): 5 (Per clinical judgment.) Shower/Bathe Self (QC): 1 (Per clincial judgment, assist x2 for sponge bath. ) Lower Body Dressing (QC): 1 (Per clincial judgment, assist x2) On/Off Footwear (QC): 1 (Total assist with gripper socks. ) Toileting Hygiene (QC): 1 (Total assist.) Other Treatments Pt laying in bed, transferred supine to sit EOB, mod A. Pt participated in UE screen. OT donned socks, pt attempted to stand but unsuccessful with assist of 2. Pt transferred supine, mod A, assistance provided BLEs. min A rolling side to side to manage sheets, then assist x2 to boost towards HOB. Post tx, pt in bed, call light in reach and all needs met. Education OT Patient Education: Correct positioning, Energy conservation, Exercise program, Modified ADL techniques, Progress toward Goal/Update tx plan, Purpose of tx/functional activities, Rehab process Teaching Recipient: Patient Teaching Methods: Discussion Response to Teaching: Verbalize Understanding OT Perianesthesia Manager Goals Perianesthesia Manager Goals Time Frame: Aug 21, 2021 Eating (QC): 6 Oral Hygiene (QC): 6 Toileting Hygiene (QC): 2 Upper Body Dressing (QC): 4 Lower Body Dressing (QC): 2 Additional Goals: 1-Demonstrate ADL Tasks, 2-Verbalize Understanding, 3- ImproveStrength/Marjorie 1=Demonstrate adherence to instructed precautions during ADL tasks. 2=Patient will verbalize/demonstrate understanding of assistive devices/modifications for ADL. 3=Patient will improve strength/tolerance for activity to enable patient to perform ADL's. OT Education/Plan Problem List/Assessment Assessment: Decreased Activ Tolerance, Decreased UE Strength, Dependent Transfers, Impaired Bed Mobility, Impaired Funct Balance, Impaired I ADL's, Impaired Self-Care Skills Discharge Recommendations Plan/Recommendations: Continue POC Therapy Discharge Recommendati: Post Acute OT (SNF) Treatment Plan/Plan of Care Patient would benefit from OT for education, treatment and training to promote independence in ADL's, mobility, safety and/or upper extremity function for ADL's. Plan of Care: ADL Retraining, Functional Mobility, Group Exercise/Act as Ind, UE Funct Exercise/Act Treatment Duration: Aug 21, 2021 Frequency: 3 times per week (3-5 times per week) Time/GCodes Start Time: 14:14 Stop Time: 14:32 Total Time Billed (hr/min): 18 Billed Treatment Time 1ARIANNA ADDISON OT Aug 05, 2021 14:41
--- NOTE | 2021-08-05 14:42 | Physical Therapy Evaluation ---
PT Evaluation-General Medical Diagnosis Admission Date Aug 04, 2021 at 15:58 Medical Diagnosis: HYPONATREMIA, HYPERKALEMIA, URINARY TRACT INFECTION, DEBILITY Onset Date: Aug 04, 2021 Therapy Diagnosis Therapy Diagnosis: impaired mobility, strength, endurance Height/Weight Height (Feet): 5 Height (Inches): 6.00 Weight (Pounds): 254 Weight (Ounces): 0 Precautions Precautions/Isolations: Fall Prevention, Standard Precautions Weight Bear Status Right Lower Extremity: Right Weight Bearing/Tolerated Left Lower Extremity: Left Weight Bearing/Tolerated Referral Physician: Mario Reason for Referral: Evaluation/Treatment Medical History Additional Medical History Past Medical History Surgeries: Hysterectomy, Orthopedic High Cholesterol, Hypertension Sexually Transmitted Disease: No Bladder Infection, Kidney Stones, UTI-Chronic Chronic Diarrhea Arthritis, Chronic Back Pain Hypothyroidsim Glaucoma Uterine What Type of Treatment Did You: Surgical Intervention ADD/ADHD, Anxiety, Bipolar, Depression Blood Disorders: No Adverse Reaction/Blood Tranf: No Reviewed History: Yes Social History Home: [facility] Current Living Status: Alone Entry Into Home: Ramp Prior Prior Level of Function SCALE: Activities may be completed with or without assistive devices. 3-Glmqylgvdp-bajlgdi completes the activity by him/herself with no assistance from a helper. 5-Set-up or Clean-up Assistance-helper sets up or cleans up; patient completes activity. [place] assists only prior to or following the activity. 4-Supervision or Touching Assistance-helper provides verbal cues and/or touching/steadying and/or contact guard assistance as patient completes a ctivity. Assistance may be provided throughout the activity or intermittently. 3-Partial/Moderate Assistance-helper does LESS THAN HALF the effort. [place] lifts, holds or supports trunk or limbs, but provides less than half the effort. 2-Substantial/Maximal Assistance-helper does MORE THAN HALF the effort. [place] lifts or holds trunk or limbs and provides more than half the effort. 7-Gutrupkfr-rmbjie does ALL the effort. Patient does none of the effort to complete the activity. Or, the assistance of 2 or more helpers is required for the patient to complete the activity. If activity was not attempted, code reason: 7-Patient Refused. 9-Not Applicable-not attempted and the patient did not perform the activity before the current illness, exacerbation or injury. 10-Not Attempted due to Environmental Limitations-(lack of equipment, weather restraints, etc.). 88-Not Attempted due to Medical Conditions or Safety Concerns. Bed Mobility: 1 Transfers (B,C,W/C): 1 Patient states she has been wheelchairbound for the last 6 months and bedbound for the last week. PT Evaluation-Current Subjective Patient in bed pre tx, agrees to PT, has no complaints of pain but does state she has some numbness in her right foot. Pt/Family Goals "to move around better" Objective Patient Orientation: Person, Place, Situation Attachments: Oxygen, Coulter Catheter (purewick) ROM/Strength ROM Lower Extremities limited due to obesity Strength Lower Extremities LLE grossly 4/5, RLE grossly 3/5 Sensory Hearing: Functional Sensation Right Lower Extremit: Impaired Sensation Left Lower Extremity: Intact Transfers Roll Left to Right (QC): 3 Sit to Lying (QC): 3 Lying to Sitting/Side of Bed(Q: 3 Min assist for rolling, mod assist for supine <-> sit. Attempted to stand but even with assist of 2 she was unable. Balance Sitting Static: Good Sitting Dynamic: Good Assessment/Needs Patient in bed post tx with nurse call, phone, tray, all needs met. Patient has impaired mobility and strength. She cannot stand at this time. Rehab Potential: Guarded PT [employer] Ground Operations Supervisor Goals [employer] Supervisor Goals PT Residential Goals Time Frame: Aug 12, 2021 Roll Left & Right (QC): 6 Sit to Lying (QC): 4 Lying-Sitting on Side/Bed(QC): 4 Sit to Stand (QC): 2 PT Plan Problem List Problem List: Activity Tolerance, Functional Strength, Safety, Balance, Gait, Transfer, Bed Mobility, ROM Treatment/Plan Treatment Plan: Continue Plan of Care Treatment Plan: Bed Mobility, Education, Functional Activity Marjorie, Functional Strength, Gait, Safety, Therapeutic Exercise, Transfers Treatment Duration: Aug 12, 2021 Frequency: 6 times per week Estimated Hrs Per Day: .25 hour per day Patient and/or Family Agrees t: Yes Safety Risks/Education Patient Education: Correct Positioning, Safety Issues Teaching Recipient: Patient Teaching Methods: Demonstration, Discussion Response to Teaching: Reinforcement Needed Discharge Recommendations Plan Patient will perform bed mobility and transfer training, balance and endurance training, functional strengthening, and education to improve functional mobility and independence at home. Therapy Discharge Recommendati: 24 Hour Supervision Time/GCodes Time In: 1413 Time Out: 1431 Total Billed Treatment Time: 18 Total Billed Treatment 1 visit BARTM 18' HALIE PATEL PT Aug 05, 2021 14:42
[2021-08-05 16:00] VITALS: BP 151/78
--- NOTE | 2021-08-05 16:37 | Wound Care Assessment ---
Wound Care Assessment Date Seen by Provider: Aug 05, 2021 Time Seen by Provider: 16:30 Chief Complaint Posterior thigh wound HPI This pleasant lady presents to the hospital with morbid obesity, lower extremity weakness, and repeated falls. She was found to have hyponatremia and UTI (man aged by primary team). She lives alone and does not ambulate. She was previously transferring herself from bed/chair to wheelchair but prior to admission had repeated falls with inability to transfer herself. Her current wheelchair is not the appropriate size and is without cushioning. She does have evidence of shear injury on right posterior thigh and bruising in numerous locations. She is morbidly obese (BMI 53) with obesity related lymphedema. There are no open wounds on lower extremity despite 3+ edema. She does have some gualding in her perineal region/gluteal folds as well as in popliteal folds. I think she would certainly benefit from a stay at a group home facility for strengthening and may possibly need permanent placement in the future if current situation does not improve. Review of Systems General: Other (Obesity) Cardiovascular: Edema Exam Vital Signs Date Time Temp Pulse Resp B/P (MAP) Pulse Ox O2 Delivery O2 Flow Rate FiO2 08/05/21 16:00 36.7 78 18 151/78 (102) 97 Nasal Cannula 3.00 Capillary Refill : Less Than 3 Seconds General Appearance: no apparent distress, obese HEENT: normal ENT inspection Neck: full range of motion Cardiovascular: other (3+ pedal edema bilateral) Respiratory: no respiratory distress, no accessory muscle use Extremities: pedal edema Neurologic/Psychiatric: alert, normal mood/affect, oriented x 3 Skin: normal color, ecchymosis (numerous bruises over trunk and upper extremities), other (hemosiderinosis b/l LE with crusting on right (no open wound)) Wound Assessment: Approximately 0.7x1.5x0.1cm. The epithelialization is none, there is no tunneling or undermining, drainage is medium and serosanguinous, the wound margins are flat, granulation is medium and red and necrotic is small and slough. There is ecchymosis of surrounding periwound Results Laboratory Tests 08/05/21 05:20: Sodium Level 130L, Potassium Level 3.6, Chloride Level 97L, Carbon Dioxide Level 27, Anion Gap 6, Blood Urea Nitrogen 8, Creatinine 0.72, Estimat Glomerular Filtration Rate 81, BUN/Creatinine Ratio 11, Glucose Level 100, Calcium Level 8.1L Microbiology 08/04/21 Urine Culture - Final, Complete Gram Pos Mixed Bacterial Radha Microbiology 08/04/21 Urine Culture - Final, Complete Gram Pos Mixed Bacterial Radha Assessment/Plan/Dx Assessment: 1. Shear injury to R. posterior thigh 2. Morbid obesity 3. Generalized weakness with falls Plan: 1. Cleanse wound daily with wound cleanser. Apply bordered foam dressing to R. posterior thigh and change qod. 2. Miconazole powder twice daily to skin fold with inner dry 3. Barrier ointment liberally twice daily to perineal skin folds and gluteal skin folds 4. Waffle cushion for wheelchair and frequent repositioning in bed to avoid direct pressure on post. thigh 5. Bariatric wheelchair\ 6. Agree with recommendations for nursing facility stay for strengthening and assistance in ADL's 7. Weight loss advised for global health DAMARIS DUENAS MD Aug 05, 2021 16:37
[2021-08-05] MEDS: NAPROXEN 250 MG (NAPROSYN) TABLET PO SCH (17:54)
[2021-08-05 19:55] VITALS: BP 153/74
[2021-08-05] MEDS: MICONAZOLE 2% POWDER (DESENEX AF) 90 GM TOP SCH (19:55)
[2021-08-05] MEDS: DORZOLAMIDE/TIMOLOL (COSOPT) 2-0.68% 10 ML BTL OU SCH (19:56)
[2021-08-05] MEDS: OXcarbazepine (TRILEPTAL) 300 MG TAB PO SCH (19:57)
[2021-08-05] MEDS: LATANOPROST 0.005% (XALATAN) OPHTH SOLN 2.5 ML OU SCH (20:04)
[2021-08-05] MEDS: ARTIFICAL TEARS 0.4 ML UNIT DOSE (REFRESH PLUS) OU SCH (20:05)
[2021-08-05] MEDS ORDERED: ASENAPINE MALEATE SL SCH (21:00)
[2021-08-05] MEDS ORDERED: LATANOPROSTENE BUNOD OU SCH (21:00)
[2021-08-05 23:21] VITALS: BP 151/74
[2021-08-06 04:12] VITALS: BP 135/75
[2021-08-06] MEDS: ENOXAPARIN 60 MG/0.6 ML (LOVENOX) SYR SC SCH ×2 (06:02→17:10)
[2021-08-06] MEDS: RT-ALBUTEROL SULF 2.5 MG/3 ML PRE-MIX VIAL INH SCH ×3 (07:28→21:25)
[2021-08-06 08:52] VITALS: BP 163/93
[2021-08-06] MEDS: amLODIPine 10 MG (NORVASC) TAB PO SCH (08:58)
[2021-08-06] MEDS: NAPROXEN 250 MG (NAPROSYN) TABLET PO SCH ×2 (08:58→17:10)
[2021-08-06] MEDS: DORZOLAMIDE/TIMOLOL (COSOPT) 2-0.68% 10 ML BTL OU SCH ×2 (08:58→20:42)
[2021-08-06] MEDS: OXYBUTYNIN (DITROPAN) 5 MG TAB PO SCH ×2 (08:59→20:41)
[2021-08-06] MEDS: MICONAZOLE 2% POWDER (DESENEX AF) 90 GM TOP SCH ×2 (08:59→20:43)
[2021-08-06] MEDS: CEPHALEXIN 250 MG (KEFLEX) CAP PO SCH ×4 (08:59→20:40)
[2021-08-06] MEDS: ALPRAZolam 0.5 MG (XANAX) TAB PO SCH ×2 (08:59→20:40)
[2021-08-06] MEDS: fluCOnazole (DIFLUCAN) 100 MG TAB PO SCH (08:59)
[2021-08-06] MEDS: ASPIRIN E.C. 81 MG (ECOTRIN) TAB PO SCH (08:59)
[2021-08-06] MEDS: SENNA W/DOCUSATE (SENOKOT S) TABLET PO SCH ×2 (08:59→20:42)
[2021-08-06] MEDS ORDERED: [UNRECOGNIZED DRUG - OTHER] PO SCH (09:00)
[2021-08-06] MEDS: NS IV 1000 ML 1,000 ML IV SCH (09:06)
[2021-08-06] MEDS: polyethylene glycoL POWDER 17 GM (MIRALAX) PACK PO SCH ×2 (09:07→20:41)
[2021-08-06] MEDS: ARTIFICAL TEARS 0.4 ML UNIT DOSE (REFRESH PLUS) OU SCH ×2 (09:07→20:43)
[2021-08-06 09:33] LABS: CALCIUM 8.5 MG/DL (8.5-10.1); CREATININE SERUM 0.65 MG/DL (0.60-1.30)
--- NOTE | 2021-08-06 10:42 | Physical Therapy Daily Note ---
PT Daily Note-Current Subjective Patient is very agreeable to participate with PT. No c/o at this time. Mental Status Patient Orientation: Normal For Age Attachments: Oxygen Transfers SCALE: Activities may be completed with or without assistive devices. 5-Dqoymownrp-llvanpt completes the activity by him/herself with no assistance from a helper. 5-Set-up or Clean-up Assistance-helper sets up or cleans up; patient completes activity. [place] assists only prior to or following the activity. 4-Supervision or Touching Assistance-helper provides verbal cues and/or touching/steadying and/or contact guard assistance as patient completes ac tivity. Assistance may be provided throughout the activity or intermittently. 3-Partial/Moderate Assistance-helper does LESS THAN HALF the effort. [place] lifts, holds or supports trunk or limbs, but provides less than half the effort. 2-Substantial/Maximal Assistance-helper does MORE THAN HALF the effort. [place] lifts or holds trunk or limbs and provides more than half the effort. 1-Jfbitebee-wdfacc does ALL the effort. Patient does none of the effort to complete the activity. Or, the assistance of 2 or more helpers is required for the patient to complete the activity. If activity was not attempted, code reason: 7-Patient Refused. 9-Not Applicable-not attempted and the patient did not perform the activity before the current illness, exacerbation or injury. 10-Not Attempted due to Environmental Limitations-(lack of equipment, weather restraints, etc.). 88-Not Attempted due to Medical Conditions or Safety Concerns. Lying to Sitting/Side of Bed(Q: 4 (SBA) Sit to Stand (QC): 2 Chair/Ygh-xb-Itaae Xfer(QC): 2 Patient able to utilize FWW to assist with sit to stand and SPT to recliner. Weight Bearing Right Lower Extremity: Right Weight Bearing/Tolerated Left Lower Extremity: Left Weight Bearing/Tolerated Exercises Seated Therapy Exercises: Ankle pumps, Long arc quads Seated Reps: 12 Assessment Patient very limited due to obesity and deconditioned state. Patient is up in recliner with needs met. Continue to increase activity as tolerated by patient. PT Sheet Manufacturing Supervisor Goals Sheet Manufacturing Supervisor Goals PT Sheet Manufacturing Supervisor Goals Time Frame: Aug 12, 2021 Roll Left & Right (QC): 6 Sit to Lying (QC): 4 Lying-Sitting on Side/Bed(QC): 4 Sit to Stand (QC): 2 PT Plan Treatment/Plan Treatment Plan: Continue Plan of Care Treatment Plan: Bed Mobility, Education, Functional Activity Marjorie, Functional Strength, Gait, Safety, Therapeutic Exercise, Transfers Treatment Duration: Aug 12, 2021 Frequency: 6 times per week Estimated Hrs Per Day: .25 hour per day Patient and/or Family Agrees t: Yes Time/GCodes Time In: 942 Time Out: 955 Total Billed Treatment Time: 13 Total Billed Treatment 1 visit FA 13 min ESME BURNETTE PT Aug 06, 2021 10:42
[2021-08-06] MEDS ORDERED: GABAPENTIN 100 MG (NEURONTIN) CAP PO NR (11:18)
[2021-08-06 12:27] VITALS: BP 153/67
--- NOTE | 2021-08-06 14:40 | Occupational Ther Daily Note ---
OT Current Status-Daily Note Subjective Pt alert, sitting in recliner. Pt agrees to therapy. No c/o pain, only rash on back. Mental Status/Objective Patient Orientation: Person, Place, Time, Situation Attachments: Coulter Catheter, IV, Oxygen (2L) ADL-Treatment Discussed LB dressing AE. Pt is interested in AE, will take and demonstrate/educate pt on use. After gathering supplies, pt able to complete oral care and grooming by self. Pt then was able to complete upper body drsg with hospital gown by self after set up. Pt states that she only wears slacks, shirts that are at least 1 size larger that her size for ease of use and mule type shoes (shoes without a back). Pt then able to demonstrate good B UE ROM and strength against gravity with B UE task. After session, pt sitting in recliner with call light/phone in reach. All needs met in room. Therapy Code Descriptions/Definitions Functional [place] Measure: 0=Not Assessed/NA 4=Minimal Assistance 1=Total Assistance 5=Supervision or Setup 2=Maximal Assistance 6=Modified [place] 3=Moderate Assistance 7=Complete IndependenceSCALE: Activities may be completed with or without assistive devices. 1-Tiopzizizv-syylohq completes the activity by him/herself with no assistance from a helper. 5-Set-up or Clean-up Assistance-helper sets up or cleans up; patient completes activity. [place] assists only prior to or following the activity. 4-Supervision or Touching Assistance-helper provides verbal cues and/or touching/steadying and/or contact guard assistance as patient completes activity. Assistance may be provided throughout the activity or intermittently. 3-Partial/Moderate Assistance-helper does LESS THAN HALF the effort. [place] lifts, holds or supports trunk or limbs, but provides less than half the effort. 2-Substantial/Maximal Assistance-helper does MORE THAN HALF the effort. [place] lifts or holds trunk or limbs and provides more than half the effort. 6-Sfczprdde-divbnq does ALL the effort. Patient does none of the effort to complete the activity. Or, the assistance of 2 or more helpers is required for the patient to complete the activity. If activity was not attempted, code reason: 7-Patient Refused. 9-Not Applicable-not attempted and the patient did not perform the activity before the current illness, exacerbation or injury. 10-Not Attempted due to Environmental Limitations-(lack of equipment, weather restraints, etc.). 88-Not Attempted due to Medical Conditions or Safety Concerns. Oral Hygiene (QC): 5 Upper Body Dressing (QC): 5 OT Optical Assistant Goals Optical Assistant Goals Time Frame: Aug 21, 2021 Eating (QC): 6 Oral Hygiene (QC): 6 Toileting Hygiene (QC): 2 Upper Body Dressing (QC): 4 Lower Body Dressing (QC): 2 Additional Goals: 1-Demonstrate ADL Tasks, 2-Verbalize Understanding, 3- ImproveStrength/Marjorie 1=Demonstrate adherence to instructed precautions during ADL tasks. 2=Patient will verbalize/demonstrate understanding of assistive devices/modifications for ADL. 3=Patient will improve strength/tolerance for activity to enable patient to perform ADL's. OT Education/Plan Problem List/Assessment Assessment: Decreased Activ Tolerance, Impaired Self-Care Skills Discharge Recommendations Plan/Recommendations: Continue POC Treatment Plan/Plan of Care Patient would benefit from OT for education, treatment and training to promote independence in ADL's, mobility, safety and/or upper extremity function for ADL's. Plan of Care: ADL Retraining, Functional Mobility, Group Exercise/Act as Ind, UE Funct Exercise/Act Treatment Duration: Aug 21, 2021 Frequency: 3 times per week (3-5 times per week) Rehab Potential: Guarded Time/GCodes Start Time: 13:10 Stop Time: 13:36 Total Time Billed (hr/min): 26 Billed Treatment Time 1 visit-ADL 2 (26 min) GIANLUCA GOODEN Aug 06, 2021 14:40
--- NOTE | 2021-08-06 15:15 | Progress Note - Hospitalist ---
Subjective HPI/CC On Admission Date Seen by Provider: Aug 06, 2021 Time Seen by Provider: 10:25 Terrie Steele is a 66 year old female with PMH HTN, HLD, super obesity, lymphedema, bipolar disorder, anxiety, depression, who presented with weakness. She has not been able to ambulate safely. She has been falling at home. She has been bedbound for the past week. She says she called EMS six times yesterday for assistance. She has had lower extremity lymphedema. She is concerned that she is not able to take care of herself at home. She denies fevers and chills. She denies shortness of breath and cough. She denies chest pain and palpitations. She is not having any abdominal pain, nausea, or vomiting. Subjective/Events-last exam She is up in her chair. She is having some pain in her right foot. Objective Exam Vital Signs Vital Signs Date Time Temp Pulse Resp B/P (MAP) Pulse Ox O2 Delivery O2 Flow Rate FiO2 08/06/21 12:27 36.8 71 22 153/67 (95) 98 Nasal Cannula 2.00 Capillary Refill : Less Than 3 Seconds General Appearance: No Apparent Distress, Chronically ill, Obese Respiratory: No Respiratory Distress, Decreased Breath Sounds Cardiovascular: Regular Rate, Rhythm, No Murmur Gastrointestinal: Normal Bowel Sounds, Soft Extremity: Swelling, Other (venous stasis dermatitis) Neurologic/Psychiatric: Alert, Oriented x3, Motor Weakness Skin: Warm/Dry, Rash Results/Procedures Lab Laboratory Tests 08/06/21 09:09 Patient resulted labs reviewed. Imaging: Reviewed Imaging Report Assessment/Plan Assessment and Plan Assess & Plan/Chief Complaint Hyponatremia Dehydration Urinary tract infection Lymphedema Recurrent falls Decubitus ulcers Debility Super obesity HTN HLD IV fluids Urine culture with mixed gram positive enoch Keflex PT/OT Social work following Wound care following Diagnosis/Problems Diagnosis/Problems (1) Urinary tract infection Status: Acute Qualifiers: Urinary tract infection type: site unspecified Hematuria presence: without hematuria Qualified Codes: N39.0 - Urinary tract infection, site not specified (2) Frequent falls Status: Acute (3) Lymphedema of lower extremity Status: Acute Qualifiers: Laterality: bilateral Qualified Codes: I89.0 - Lymphedema, not elsewhere classified (4) Hyponatremia Status: Acute (5) Decubitus ulcers Status: Acute Qualifiers: Pressure injury location: lower back Pressure injury stage: stage 1 Laterality: left Qualified Codes: L89.141 - Pressure ulcer of left lower back, stage 1 (6) Debility Status: Acute (7) Hyperkalemia Status: Resolved Resolution Date/Time: 08/05/21 @ 15:00 (8) Super obesity Status: Chronic POP CARLSON MD Aug 06, 2021 15:15
[2021-08-06 16:00] VITALS: BP 133/74
[2021-08-06 19:26] VITALS: BP 146/84
[2021-08-06] MEDS: OXcarbazepine (TRILEPTAL) 300 MG TAB PO SCH (20:40)
[2021-08-06] MEDS: GABAPENTIN 100 MG (NEURONTIN) CAP PO SCH (20:40)
[2021-08-06] MEDS: LATANOPROST 0.005% (XALATAN) OPHTH SOLN 2.5 ML OU SCH (20:43)
[2021-08-07 00:04] VITALS: BP 125/77
[2021-08-07 03:52] VITALS: BP 124/58
[2021-08-07] MEDS: ENOXAPARIN 60 MG/0.6 ML (LOVENOX) SYR SC SCH (06:10)
[2021-08-07] MEDS: NS IV 1000 ML 1,000 ML IV SCH (07:56)
[2021-08-07] MEDS: SENNA W/DOCUSATE (SENOKOT S) TABLET PO SCH (07:56)
[2021-08-07] MEDS: amLODIPine 10 MG (NORVASC) TAB PO SCH (07:56)
[2021-08-07] MEDS: fluCOnazole (DIFLUCAN) 100 MG TAB PO SCH (07:57)
[2021-08-07] MEDS: ASPIRIN E.C. 81 MG (ECOTRIN) TAB PO SCH (07:57)
[2021-08-07] MEDS: ALPRAZolam 0.5 MG (XANAX) TAB PO SCH (07:57)
[2021-08-07] MEDS: NAPROXEN 250 MG (NAPROSYN) TABLET PO SCH (07:57)
[2021-08-07] MEDS: GABAPENTIN 100 MG (NEURONTIN) CAP PO SCH (07:57)
[2021-08-07] MEDS: polyethylene glycoL POWDER 17 GM (MIRALAX) PACK PO SCH (07:58)
[2021-08-07] MEDS: ARTIFICAL TEARS 0.4 ML UNIT DOSE (REFRESH PLUS) OU SCH (07:58)
[2021-08-07] MEDS: OXYBUTYNIN (DITROPAN) 5 MG TAB PO SCH (07:58)
[2021-08-07] MEDS: MICONAZOLE 2% POWDER (DESENEX AF) 90 GM TOP SCH (07:58)
[2021-08-07] MEDS: CEPHALEXIN 250 MG (KEFLEX) CAP PO SCH ×2 (07:58→13:22)
[2021-08-07] MEDS: DORZOLAMIDE/TIMOLOL (COSOPT) 2-0.68% 10 ML BTL OU SCH (07:59)
[2021-08-07 08:00] VITALS: BP 143/65
[2021-08-07] MEDS: RT-ALBUTEROL SULF 2.5 MG/3 ML PRE-MIX VIAL INH SCH (08:01)
--- NOTE | 2021-08-07 10:02 | Occupational Ther Daily Note ---
OT Current Status-Daily Note Subjective Pt alert, sitting in recliner. Pt agrees to therapy. Pt to discharge to [facility] today. Mental Status/Objective Patient Orientation: Person, Place, Time, Situation ADL-Treatment Pt requested to be educated on AE for lower body dressing. Pt given handout of different dressing equipment and educated on how to use the equipment. Pt demonstrated understanding of business operations coordinator and sock aide. After session, nrsg in room assisting pt with toileting. All needs met. Therapy Code Descriptions/Definitions Functional [place] Measure: 0=Not Assessed/NA 4=Minimal Assistance 1=Total Assistance 5=Supervision or Setup 2=Maximal Assistance 6=Modified [place] 3=Moderate Assistance 7=Complete IndependenceSCALE: Activities may be completed with or without assistive devices. 8-Mmpcxsyxbj-eaqenkl completes the activity by him/herself with no assistance from a helper. 5-Set-up or Clean-up Assistance-helper sets up or cleans up; patient completes activity. [place] assists only prior to or following the activity. 4-Supervision or Touching Assistance-helper provides verbal cues and/or touching/steadying and/or contact guard assistance as patient completes activity. Assistance may be provided throughout the activity or intermittently. 3-Partial/Moderate Assistance-helper does LESS THAN HALF the effort. [place] lifts, holds or supports trunk or limbs, but provides less than half the effort. 2-Substantial/Maximal Assistance-helper does MORE THAN HALF the effort. [place] lifts or holds trunk or limbs and provides more than half the effort. 0-Widbcurqv-ejzukf does ALL the effort. Patient does none of the effort to complete the activity. Or, the assistance of 2 or more helpers is required for the patient to complete the activity. If activity was not attempted, code reason: 7-Patient Refused. 9-Not Applicable-not attempted and the patient did not perform the activity before the current illness, exacerbation or injury. 10-Not Attempted due to Environmental Limitations-(lack of equipment, weather restraints, etc.). 88-Not Attempted due to Medical Conditions or Safety Concerns. OT Skilled Nursing Goals Fish Icer Goals Time Frame: Aug 21, 2021 Eating (QC): 6 Oral Hygiene (QC): 6 Toileting Hygiene (QC): 2 Upper Body Dressing (QC): 4 Lower Body Dressing (QC): 2 Additional Goals: 1-Demonstrate ADL Tasks, 2-Verbalize Understanding, 3- ImproveStrength/Marjorie 1=Demonstrate adherence to instructed precautions during ADL tasks. 2=Patient will verbalize/demonstrate understanding of assistive devices/modifications for ADL. 3=Patient will improve strength/tolerance for activity to enable patient to perform ADL's. OT Education/Plan Problem List/Assessment Assessment: Decreased Activ Tolerance Discharge Recommendations Plan/Recommendations: Discharge/Goals Met (d/c to [facility]) Treatment Plan/Plan of Care Patient would benefit from OT for education, treatment and training to promote independence in ADL's, mobility, safety and/or upper extremity function for ADL's. Plan of Care: ADL Retraining, Functional Mobility, Group Exercise/Act as Ind, UE Funct Exercise/Act Treatment Duration: Aug 21, 2021 Frequency: 3 times per week (3-5 times per week) Rehab Potential: Guarded Time/GCodes Start Time: 09:40 Stop Time: 09:56 Total Time Billed (hr/min): 16 Billed Treatment Time 1 visit-ADL 1 (16 min) GIANLUCA GOODEN Aug 07, 2021 10:02
[2021-08-07] MEDS ORDERED: PANT40TA52 PO (11:22)
[2021-08-07] MEDS ORDERED: BIOT10005 PO (11:22)
[2021-08-07] MEDS ORDERED: FERR325T18 PO (11:22)
[2021-08-07] MEDS ORDERED: GABA-486 PO (11:22)
[2021-08-07] MEDS ORDERED: CEPH250C PO (11:22)
[2021-08-07] MEDS ORDERED: NAPR-915 PO (11:22)
[2021-08-07] MEDS ORDERED: MELO15TA39 PO (11:22)
[2021-08-07] MEDS ORDERED: OXYB5TAB13 PO (11:22)
[2021-08-07] MEDS ORDERED: FLUC100T6 PO (11:22)
[2021-08-07] MEDS ORDERED: CRAN1CAP7 PO (11:22)
[2021-08-07] MEDS ORDERED: DORZ10DR8 OU (11:22)
[2021-08-07] MEDS ORDERED: ASEN10TA9 SL (11:22)
[2021-08-07] MEDS ORDERED: GUAI-370 PO (11:22)
[2021-08-07] MEDS ORDERED: TRAM50TA3 PO (11:22)
[2021-08-07] MEDS ORDERED: AMLO-251 PO (11:22)
[2021-08-07] MEDS ORDERED: CYCL1DRO OU (11:22)
[2021-08-07] MEDS ORDERED: LATA5DRO OU (11:22)
[2021-08-07] MEDS ORDERED: ASPI-1238 PO (11:22)
[2021-08-07] MEDS ORDERED: LAMO200T5 PO (11:22)
[2021-08-07] MEDS ORDERED: VIT1CAPS14 PO (11:22)
[2021-08-07] MEDS ORDERED: HYDR453.3 TOP (11:22)
[2021-08-07] MEDS ORDERED: OXCA300T18 PO (11:22)
[2021-08-07] MEDS ORDERED: CITA40TA19 PO (11:22)
[2021-08-07] MEDS ORDERED: ALPR1TAB7 PO (11:22)
--- NOTE | 2021-08-07 11:31 | Discharge Summary ---
Discharge Summary Reconcile Patient Problems Problems Reviewed?: Yes Hospital Course Hospital Course Date of Admission: Aug 04, 2021 at 15:58 Admission Diagnosis: Hyponatremia, dehydration, UTI, lymphedema, decubitus ulcers, falls, super obesity Family Physician/Provider: Inderjit Cox MD Date of Discharge: 08/07/21 Discharge Diagnosis: Hyponatremia, dehydration, UTI, lymphedema, decubitus ulcers, falls, super obesity Hospital Course: Terrie Steele is a 66 year old female who was admitted with urinary tract infection. She was treated with Keflex. She was severely debilitated. She had become unable to ambulate at home. She had lymphedema and decubitus ulcers. Wound care was consulted and gave recommendations. PT/OT assisted with her care. She was discharged to [facility] in stable condition for ongoing therapy needs. Labs and Pending Lab Test: Microbiology 08/04/21 Urine Culture - Final, Complete Gram Pos Mixed Bacterial Radha Home Meds Active Amlodipine Besylate 10 Mg Tablet 10 Mg PO DAILY 30 Days Fluconazole 100 Mg Tablet 100 Mg PO DAILY 5 Days Gabapentin 100 Mg Capsule 100 Mg PO BID 30 Days Cephalexin 250 Mg Capsule 500 Mg PO QID 5 Days Aspirin EC (Aspirin) 81 Mg Tablet.dr 81 Mg PO DAILY 30 Days Preservision Lutein Softgel (Vit C/Queta AC/Lut/Copper/Znox) 1 Each Capsule 1 Each PO BID 30 Days Meloxicam 15 Mg Tablet 15 Mg PO DAILY 30 Days Tramadol HCl 50 Mg Tablet 50 Mg PO HS 30 Days Restasis (Cyclosporine) 1 Each Droperette 1 Drop OU BID 30 Days Naproxen 500 Mg Tablet 500 Mg PO BID 30 Days Lamotrigine 200 Mg Tablet 400 Mg PO HS 30 Days TAKES 2 (200MG) TABS Hydrocortisone 453.6 Gm Cream..g. 1 Applic TOP BID PRN 30 Days APPLY TO LEGS Pantoprazole Sodium 40 Mg Tablet.dr 40 Mg PO DAILY 30 Days Vyzulta (Latanoprostene Bunod) 5 Ml Drops 1 Drop OU HS 30 Days Mucinex D ER 600-60 mg Tablet (Guaifenesin/Pseudoephedrne HCl) 1 Each Tab.er.12h 1 Ea PO DAILY 30 Days Biotin 10,000 Mcg Capsule 10,000 Mcg PO BID 30 Days Ferrous Sulfate 325 Mg Tablet 325 Mg PO BID 30 Days Cranberry Plus Vitamin C Sftgl (Cranberry Conc/Ascorbic Acid) 1 Each Capsule 2 Cap PO BID 30 Days Saphris (Asenapine Maleate) 10 Mg Tab.subl 20 Mg SL HS 30 Days TAKES 2 (20MG) TABS Alprazolam 1 Mg Tablet 1 Mg PO BID PRN 30 Days Oxybutynin Chloride 5 Mg Tablet 5 Mg PO BID 30 Days Dorzolamide-Timolol Eye Drops (Dorzolamide HCl/Timolol Maleat) 10 Ml Drops 1 Drop OU BID 30 Days Oxcarbazepine 300 Mg Tablet 300 Mg PO BID 30 Days Celexa (Citalopram Hydrobromide) 40 Mg Tablet 40 Mg PO DAILY 30 Days Reported [Rephresh Pro B] 2 Ea PO BID [T-3/T-4 Airline Manager Compound] 108MCG/76MCG Cap 1 Cap PO DAILY Amlodipine Besylate 10 Mg Tablet 10 Mg PO DAILY PRN Ciprofloxacin HCl 500 Mg Tablet 500 Mg PO DAILY Instructions to Patient/Family Assessment/Instructions Take medications as prescribed. Wound care as recommended. Participate with therapies. Return with worsening shortness of breath, pain, or if you are feeling worse. Follow Up Appt.: next fpc rounds Skilled NF Admit to: [facility] Certification ([facility]) I certify that SNF services are required to be given on an inpatient basis because of the above named patient's need for [facility] care on a continuing basis for the conditions(s) for which he/she was receiving inpatient hospital services prior to his/her transfer to the SNF. Senior Care Facility Order: Nursing Services, Commercial Loan Processor-Evaluate & Treat, Physical Therapy-Evaluate & Treat, Wound Care-Eval/Treat Oxygen Delivery Method: Nasal Cannula Oxygen Flow Rate L/min (Range): PRN Discharge Diet: Low Sodium Diet Daily Activity as Tolerated: Yes Resuscitation Status: Full Code Pop Carlson Aug 07, 2021 11:25 Discharge Physical Exam General: Alert, Oriented X3, Cooperative, No Acute Distress HEENT: Atraumatic, EOMI, Mucous Memb Moist/Avella Lungs: Clear to Auscultation, Normal Air Movement Heart: Regular Rate, Normal S1, Normal S2, No Murmurs Abdomen: Normal Bowel Sounds, Soft, No Tenderness Extremities: Other (bilateral swelling, lymphedema) Skin: Other (lower extremity wounds, aleksandra intertrigo) Neuro: Normal Speech, Normal Tone Psych/Mental Status: Mental Status NL, Mood NL POP CARLSON MD Aug 07, 2021 11:31
[2021-08-07 12:00] VITALS: BP 132/78
[2021-08-07 15:23] VITALS: BP 132/78
== END 2021-08-07 15:26 | DRG 690 ==
LOC: EDUNIT# 12:23 → ER 12:24 → 4TH 15:58
PROVIDERS: ADMIT Internal Medicine; ATTEND Internal Medicine
DX: N39.0 Urinary tract infection, site not specified (principal); E87.1 Hypo-osmolality and hyponatremia; Z68.43 Body mass index [BMI] 50.0-59.9, adult; E86.0 Dehydration; E66.01 Morbid (severe) obesity due to excess calories; L89.896 Pressure-induced deep tissue damage of other site; L89.141 Pressure ulcer of left lower back, stage 1; E78.00 Pure hypercholesterolemia, unspecified; I10 Essential (primary) hypertension; E03.9 Hypothyroidism, unspecified; F41.9 Anxiety disorder, unspecified; F31.9 Bipolar disorder, unspecified; E87.5 Hyperkalemia; I89.0 Lymphedema, not elsewhere classified; L30.4 Erythema intertrigo; Z91.81 History of falling; Z85.42 Personal history of malignant neoplasm of other parts of uterus; Z90.710 Acquired absence of both cervix and uterus; Z83.49 Family history of other endocrine, nutritional and metabolic diseases; Z23 Encounter for immunization
CPT/HCPCS: 36415; 73562; 80048; 80053; 81000; 83880; 85025; 87088; 94640; 94760

== ENCOUNTER → 2022-01-11 | Outpatient (CLI) | payer MEDICARE, OTHER ==
[~2022-01-11] MED LIST changes: +ASPI-1238 PO; +BIOT10005 PO; +CEPH250C PO; +CIPR500T5 PO; +CYCL1DRO OU; +FLUC100T10 PO; +GABA-486 PO; +GUAI-370 PO; +HYDR453.3 TOP; +LAMO200T5 PO; +LATA5DRO OU; +MELO15TA39 PO; +PANT40TA52 PO; +RT-ALBUTEROL SULF 2.5 MG/3 ML PRE-MIX VIAL INH ONE; +TRAM50TA3 PO; +VIT1CAPS14 PO; +[UNRECOGNIZED DRUG - MIXTURE] PO; +[UNRECOGNIZED DRUG - OTHER] PO
== END ==
LOC: RT 10:29
PROVIDERS: ATTEND Physician Assistant
DX: R06.2 Wheezing (principal); R05.9 Cough, unspecified
CPT/HCPCS: 94060; 94729

== ENCOUNTER 2022-05-01 12:15 | Inpatient (IN) | payer MEDICARE, OTHER ==
[~2022-05-01] VITALS: Ht 167 cm; Wt 129.6 kg
[~2022-05-01 12:15] MED LIST changes: -RT-ALBUTEROL SULF 2.5 MG/3 ML PRE-MIX VIAL INH ONE; +SIMV-333 PO; -SIMV20TA PO
[2022-05-01] MEDS ORDERED: ONDANSETRON 4 MG/2 ML (SDV) Z0FRAN IV STA (12:29)
[2022-05-01] MEDS ORDERED: LACTATED RINGERS 1,000 ML IV ONE ×2 (12:30)
[2022-05-01 12:34] LABS: ABG BASE EXCESS 4.6 MMOL/L (-2.5-2.5); ABG OXYGEN SATURATION 90 % (94-100); ABG PCO2 70 MMHG (35-45); ABG PO2 58 MMHG (79-93); ABG TCO2 33.5 MMOL/L (21.0-31.0)
[2022-05-01 12:35] LABS: ALLENS TEST YES-POS; INSPIRED O2 2L; PATIENT TEMP 36.2; VENTILATOR NO
[2022-05-01 12:36] LABS: ABG PH 7.27 (7.37-7.43)
--- NOTE | 2022-05-01 12:38 | ED Respiratory ---
General Chief Complaint: Dizziness/Syncope Stated Complaint: SOA/FALL Nursing Triage Note: Pt here with dizziness and nausea with onset last night. Pt also states she slid from her chair today but denies injury from that. Pt reports soa as well. Source: patient Exam Limitations: no limitations History of Present Illness Date Seen by Provider: May 01, 2022 Time Seen by Provider: 12:05 Initial Comments Patient to the ER by EMS from home with chief complaint she slid out of her recliner this morning. She been having nausea vomiting diarrhea and poor appetite for the past 2 days. She has COPD but does not require oxygen, CPAP or BiPAP at night. She was satting 53% on room air per firefighters and on 4 L by nasal cannula EMS that her sats were 92 to 94%. Patient's not complaining of any pain anywhere. She is not on blood thinners. She denies striking her head nor loss of consciousness. She is not diabetic nor does she have heart disease smoking, and her history. She is followed by Dr. Salguero for primary care. She does not see any other doctors. She denies other significant medical history. She has a history of lymphedema and decubitus ulcers according to a stay in August of this year. She was here for UTI, severe debilitation and set up with physical therapy occupational therapy outpatient. She had a cardiac catheterization by Dr. Torres 2018 demonstrating no angiographically significant coronary artery disease, EF of 60% and elevated left ventricular end-diastolic pressure. Allergies and Home Medications Allergies Uncoded Allergies: MERCURY (Allergy, Mild, 08/24/10) Patient Home Medication List Home Medication List Reviewed: Yes Alprazolam (Alprazolam) 1 Mg Tablet, 1 MG PO BID PRN for ANXIETY Prescribed by: POP CARLSON on 08/07/211122 Amlodipine Besylate (Amlodipine Besylate) 10 Mg Tablet, 10 MG PO DAILY Prescribed by: POP CARLSON on 08/07/21 112 Asenapine Maleate (Saphris) 10 Mg Tab.subl, 20 MG SL HS Prescribed by: POP CARLSON on 08/07/211121 Aspirin (Aspirin EC) 81 Mg Tablet.dr, 81 MG PO DAILY Prescribed by: POP CARLSON on 08/07/211121 Biotin (Biotin) 10,000 Mcg Capsule, 10,000 MCG PO BID Prescribed by: POP CARLSON on 08/07/211121 Cephalexin (Cephalexin) 250 Mg Capsule, 500 MG PO QID Prescribed by: POP CARLSON on 08/07/211121 Citalopram Hydrobromide (Celexa) 40 Mg Tablet, 40 MG PO DAILY Prescribed by: POP CARLSON on 08/07/211121 Cranberry Conc/Ascorbic Acid (Cranberry Plus Vitamin C Sftgl) 1 Each Capsule, 2 CAP PO BID Prescribed by: POP CARLSON on 08/07/211121 Cyclosporine (Restasis) 1 Each Droperette, 1 DROP OU BID Prescribed by: POP CARLSON on 08/07/211121 Dorzolamide HCl/Timolol Maleat (Dorzolamide-Timolol Eye Drops) 10 Ml Drops, 1 DROP OU BID Prescribed by: POP CARLSON on 08/07/211121 Ferrous Sulfate (Ferrous Sulfate) 325 Mg Tablet, 325 MG PO BID Prescribed by: POP CARLSON on 08/07/211121 Fluconazole (Fluconazole) 100 Mg Tablet, 100 MG PO DAILY Prescribed by: POP CARLSON on 08/07/211121 Gabapentin (Gabapentin) 100 Mg Capsule, 100 MG PO BID Prescribed by: POP CARLSON on 08/07/211121 Guaifenesin/Pseudoephedrne HCl (Mucinex D ER 600-60 mg Tablet) 1 Each Tab.er.12h, 1 EA PO DAILY Prescribed by: POP CARLSON on 08/07/211122 Hydrocortisone (Hydrocortisone) 453.6 Gm Cream..g., 1 APPLIC TOP BID PRN for DRY SKIN Prescribed by: POP CARLSON on 08/07/211121 Lamotrigine (Lamotrigine) 200 Mg Tablet, 400 MG PO HS Prescribed by: POP CARLSON on 08/07/211121 Latanoprostene Bunod (Vyzulta) 5 Ml Drops, 1 DROP OU HS Prescribed by: POP CARLSON on 08/07/211121 Meloxicam (Meloxicam) 15 Mg Tablet, 15 MG PO DAILY Prescribed by: POP CARLSON on 08/07/211121 Naproxen (Naproxen) 500 Mg Tablet, 500 MG PO BID Prescribed by: POP CARLSON on 08/07/211121 Oxcarbazepine (Oxcarbazepine) 300 Mg Tablet, 300 MG PO BID Prescribed by: POP CARLSON on 08/07/211121 Oxybutynin Chloride (Oxybutynin Chloride) 5 Mg Tablet, 5 MG PO BID Prescribed by: POP CARLSON on 08/07/211121 Pantoprazole Sodium (Pantoprazole Sodium) 40 Mg Tablet.dr, 40 MG PO DAILY Prescribed by: POP CARLSON on 08/07/211121 Tramadol HCl (Tramadol HCl) 50 Mg Tablet, 50 MG PO HS Prescribed by: POP CARLSON on 08/07/211122 Vit C/Queta AC/Lut/Copper/Znox (Preservision Lutein Softgel) 1 Each Capsule, 1 EACH PO BID Prescribed by: POP CARLSON on 08/07/211121 [Rephresh Pro B] , 2 EA PO BID, (Reported) Entered as Reported by: MINOO YOU on 08/05/21 115 [T-3/T-4 Needle Loom Operator Compound] 108MCG/76MCG CAP, 1 CAP PO DAILY, (Reported) Entered as Reported by: MINOO YOU on 08/05/211152 Review of Systems Review of Systems Constitutional: No chills; dizziness; No fever; malaise, weakness EENTM: No ear discharge, No ear pain Respiratory: No cough, No short of breath Cardiovascular: No chest pain, No edema Gastrointestinal: No abdominal pain, No constipation; diarrhea, nausea, vomiting Genitourinary: No discharge, No dysuria Musculoskeletal: No back pain, No joint pain All Other Systems Reviewed Negative Unless Noted: Yes Past Wbiidvn-Baofyw-Wfauad Hx Patient Social History Tobacco Use?: No Smoking Status: Never a Smoker Use of E-Cig and/or Vaping dev: No Substance use?: No Alcohol Use?: Yes Alcohol type: Wine Alcohol Frequency: Once in a while Immunizations Up To Date Tetanus Booster (TDap): More than 5yrs First/Initial COVID19 Vaccinat: SEP 2020 Second COVID19 Vaccination Felipe: OCTOBER 2020 Seasonal Allergies Seasonal Allergies: Yes Past Medical History Surgeries: Yes (NECK- RUSSELL REMOVAL, PRECANCEROUS CELLS REMOVED FROM PELVIC AREA, ) Hysterectomy, Orthopedic Respiratory: No Cardiac: Yes High Cholesterol, Hypertension Neurological: No Reproductive Disorders: No Sexually Transmitted Disease: No Bladder Infection, Kidney Stones, UTI-Chronic Gastrointestinal: Yes Chronic Diarrhea Musculoskeletal: Yes (NARROWING OF L3-L5, OSTEOARTHRITIS) Arthritis, Chronic Back Pain Endocrine: Yes Hypothyroidsim Glaucoma Cancer: Yes Uterine What Type of Treatment Did You: Surgical Intervention Psychosocial: Yes ADD/ADHD, Anxiety, Bipolar, Depression Integumentary: No Blood Disorders: No Adverse Reaction/Blood Tranf: No Family Medical History Alcoholism 03 FATHER, Age:96 03 MOTHER, , Age:60 years and older 09 BROTHER, Age:71 09 BROTHER, , Age:40's - 50 09 BROTHER, Age:66 09 BROTHER, Age:62 09 SISTER, Age:59 Cancer 03 MOTHER, , Age:60 years and older 09 BROTHER, , Age:40's - 50 Cataract 03 FATHER, Age:96 Family history: Arthritis 09 SISTER, Age:59 Family history: Gastrointestinal disease 09 BROTHER, Age:62 Family history: Thyroid disorder 09 SISTER, Age:59 Headache 03 FATHER, Age:96 03 MOTHER, , Age:60 years and older 09 BROTHER, Age:71 09 BROTHER, , Age:40's - 50 09 BROTHER, Age:66 09 BROTHER, Age:62 09 SISTER, Age:59 History of drug abuse Visual impairment No Family History of: Abdominal aortic aneurysm [place]'s disease Aphasia Cancer of colon Chest pain Congenital heart disease Congestive heart failure Cystic fibrosis Dementia Dysphagia Family history: Allergy Family history: Alzheimer's disease Family history: Asthma Family history: Breast disease Family history: Cardiovascular disease Family history: Coronary thrombosis Family history: Diabetes mellitus Family history: Glaucoma Family history: Hypertension Family history: Osteoporosis Hearing loss Heart disease Hereditary disease History of - anemia History of - respiratory disease Human immunodeficiency virus (HIV) seropositivity Hypercholesterolemia Infertile Kidney disease Malignant neoplasm of lung Myocardial infarction Parkinson's disease Prostate cancer Psychotic disorder Seizure disorder Stroke Tuberculosis Physical Exam Vital Signs - First Documented 05/01/22 12:23 Temp 36.2 Pulse 66 Resp 18 B/P (MAP) 148/115 (126) Pulse Ox 92 O2 Delivery Nasal Cannula O2 Flow Rate 2.00 Capillary Refill : Greater Than 3 Seconds Height: 5'6.00" Weight: 254lbs. 0oz. 115.642409ta; 48.00 BMI Method:Stated General Appearance: WD/WN, moderate distress Eyes: Bilateral Eye Normal Inspection, Bilateral Eye PERRL, Bilateral Eye EOMI HEENT: PERRL/EOMI, normal ENT inspection, TMs normal; No pharynx normal (Dry oral mucosa with chapped, cracked lips) Neck: non-tender, full range of motion, supple, normal inspection Respiratory: lungs clear, respiratory distress (2 L by nasal cannula brings her sats up to 92 to 93%. Respiratory rate 20 breaths/min), decreased breath sounds; No accessory muscle use Cardiovascular: normal peripheral pulses, regular rate, rhythm (Heart rate 60) Gastrointestinal: non tender, soft Extremities: normal range of motion, non-tender, normal capillary refill Neurologic/Psychiatric: alert (Mildly somnolent.), normal mood/affect, oriented x 3 Skin: normal color, warm/dry Focused Exam Lactate Level 05/01/22 12:56: Lactic Acid Level 0.71 Lactic Acid Level Laboratory Tests Test 05/01/22 12:56 Lactic Acid Level 0.71 MMOL/L (0.50-2.00) Progress/Results/Core Measures Suspected Sepsis SIRS Temperature: Pulse: 66 Respiratory Rate: 18 Laboratory Tests 05/01/22 12:56: White Blood Count 6.2 Blood Pressure 148 /115 Mean: 126 05/01/22 12:56: Lactic Acid Level 0.71 Laboratory Tests 05/01/22 12:56: Creatinine 0.72, INR Comment 1.1, Platelet Count 242, Total Bilirubin 0.4 Results/Orders Lab Results Laboratory Tests Test 05/01/22 12:20 05/01/22 12:35 05/01/22 12:56 Range/Units Blood Gas Puncture Site RT RADIAL Blood Gas Patient Temperature 36.2 Arterial Blood pH 7.27 *L 7.37-7.43 Arterial Blood Partial Pressure CO2 70 H 35-45 MMHG Arterial Blood Partial Pressure O2 58 L 79-93 MMHG Arterial Blood HCO3 31 H 23-27 MMOL/L Arterial Blood Total CO2 33.5 H 21.0-31.0 MMOL/L Arterial Blood Oxygen Saturation 90 L 94-100 % Arterial Blood Base Excess 4.6 H -2.5-2.5 MMOL/L Skyler Test YES-POS Blood Gas Ventilator Setting NO Blood Gas Inspired Oxygen 2L Influenza Type A (RT-PCR) Not Detected Not Detecte Influenza Type B (RT-PCR) Not Detected Not Detecte SARS-CoV-2 RNA (RT-PCR) Not Detected Not Detecte White Blood Count 6.2 4.3-11.0 10^3/uL Red Blood Count 4.47 3.80-5.11 10^6/uL Hemoglobin 12.7 11.5-16.0 g/dL Hematocrit 41 35-52 % Mean Corpuscular Volume 92 80-99 fL Mean Corpuscular Hemoglobin 28 25-34 pg Mean Corpuscular Hemoglobin Concent 31 L 32-36 g/dL Red Cell Distribution Width 14.6 H 10.0-14.5 % Platelet Count 242 130-400 10^3/uL Mean Platelet Volume 9.4 9.0-12.2 fL Immature Granulocyte % (Auto) 1 % Neutrophils (%) (Auto) 85 H 42-75 % Lymphocytes (%) (Auto) 6 L 12-44 % Monocytes (%) (Auto) 7 0-12 % Eosinophils (%) (Auto) 1 0-10 % Basophils (%) (Auto) 0 0-10 % Neutrophils # (Auto) 5.3 1.8-7.8 10^3/uL Lymphocytes # (Auto) 0.4 L 1.0-4.0 10^3/uL Monocytes # (Auto) 0.4 0.0-1.0 10^3/uL Eosinophils # (Auto) 0.1 0.0-0.3 10^3/uL Basophils # (Auto) 0.0 0.0-0.1 10^3/uL Immature Granulocyte # (Auto) 0.0 0.0-0.1 10^3/uL Neutrophils % (Manual) 83 % Lymphocytes % (Manual) 9 % Monocytes % (Manual) 6 % Eosinophils % (Manual) 2 % Blood Morphology Comment NORMAL Prothrombin Time 14.9 H 12.2-14.7 SEC INR Comment 1.1 0.8-1.4 Activated Partial Thromboplast Time 35 24-35 SEC D-Dimer 1.28 H 0.00-0.49 UG/ML Sodium Level 128 L 135-145 MMOL/L Potassium Level 4.4 3.6-5.0 MMOL/L Chloride Level 92 L 98-107 MMOL/L Carbon Dioxide Level 27 21-32 MMOL/L Anion Gap 9 5-14 MMOL/L Blood Urea Nitrogen 6 L 7-18 MG/DL Creatinine 0.72 0.60-1.30 MG/DL Estimat Glomerular Filtration Rate 91 BUN/Creatinine Ratio 8 Glucose Level 120 H 70-105 MG/DL Lactic Acid Level 0.71 0.50-2.00 MMOL/L Calcium Level 9.8 8.5-10.1 MG/DL Corrected Calcium 9.6 8.5-10.1 MG/DL Magnesium Level 1.8 1.6-2.4 MG/DL Total Bilirubin 0.4 0.1-1.0 MG/DL Aspartate Amino Transf (AST/SGOT) 66 H 5-34 U/L Alanine Aminotransferase (ALT/SGPT) 43 0-55 U/L Alkaline Phosphatase 67 40-136 U/L Troponin I 0.198 H <0.028 NG/ML C-Reactive Protein High Sensitivity 2.01 H 0.00-0.50 MG/DL Total Protein 7.2 6.4-8.2 GM/DL Albumin 4.2 3.2-4.5 GM/DL Procalcitonin 0.01 <0.10 NG/ML My Orders Orders - VERÓNICA MARTINEZ Arterial Blood Gas (05/01/22 12:28) Cbc With Automated Diff (05/01/22 12:) Comprehensive Metabolic Panel (05/01/22 12:29) Blood Culture (05/01/22 12:) Sputum Culture (05/01/22 12:) Urinalysis (05/01/22:) Urine Culture (05/01/22 12:29) Protime With Inr (05/01/22 12:) Partial Thromboplastin Time (05/01/22 12:) Chest 1 View, Ap/Pa Only (05/01/22 12:29) Ed Iv/Invasive Line Start (05/01/22 12:29) Ed Iv/Invasive Line Start (05/01/22 12:29) Ekg Tracing (05/01/22 12:) Troponin I Loving (05/01/22 12:29) Vital Signs Adult Sepsis Patie Q15M (05/01/22 12:29) Ondansetron Injection (Zofran Injectio (05/01/22 12:29) O2 (05/01/22 12:29) Remove Rings In Anticipation O (05/01/22 12:29) Lactic Acid Analyzer (05/01/22 12:29) Influenza A And B By Pcr (05/01/22 12:29) Lactated Ringers (Lr 1000 Ml Iv Solution (05/01/22 12:30) Ed Iv/Invasive Line Start (05/01/22 12:29) Lactated Ringers (Lr 1000 Ml Iv Solution (05/01/22 12:30) Covid 19 Inhouse Test (05/01/22 12:29) Fibrin Degradation Products (05/01/22 12:29) Hs C Reactive Protein (05/01/22 12:29) Procalcitonin (Pct) (05/01/22 12:29) Magnesium (05/01/22 12:29) Manual Differential (05/01/22 12:56) Catheter(Urinary) Insert & Ass 03,15 (05/01/22 13:51) Bnp Rolo (05/01/22 13:55) Medications Given in ED Current Medications Medications Dose Ordered Sig/Brad Route Start Time Stop Time Status Last Admin Dose Admin Lactated Ringer's 1,000 ml @ 0 mls/hr Q0M ONCE IV 05/01/22 12:30 05/01/22 12:33 DC 05/01/22 12:54 1,000 MLS/HR Vital Signs/I&O 05/01/22 05/01/22 12:23 12:56 Temp 36.2 Pulse 66 57 Resp 18 20 B/P (MAP) 148/115 (126) Pulse Ox 92 100 O2 Delivery Nasal Cannula O2 Flow Rate 2.00 35.00 Capillary Refill : Greater Than 3 Seconds Blood Pressure Mean: 126 Progress Note : Time: 12:37 Progress Note ABG, septic work-up for respiratory distress. Will probably be using BiPAP. Patient satting okay on oxygen but still little obtunded. We will get a COVID and flu swab, D-dimer procalcitonin and CRP to help differentiate between bacterial or viral or COPD. We will hold off on antibiotics but because she looks quite dry and is having nausea and vomiting and diarrhea we will go ahead and give her 2 L of lactated Ringer's. We will check a magnesium level. Because of the hypoxic event she could have had a atypical cardiac event so we will go ahead and check an EKG and a troponin. ECG Initial ECG Impression Date: May 01, 2022 Initial ECG Impression Time: 12:30 Initial ECG Rate: 63 Initial ECG Rhythm: Normal Sinus Initial ECG Intervals: SC (243) Initial ECG Impression: Normal Comment Normal sinus rhythm with a prolonged SC interval. No clinically relevant ST elevation or depression Diagnostic Imaging Diagonstic Imaging: Xray Plain Films/CT/US/NM/MRI: chest Comments NAME: ALBARO [facility]MAN [facility] REC#: [id number] PT STATUS: REG ER : 1955 PHYSICIAN: VERÓNICA MARTINEZ MD ADMIT DATE: 05/01/22/ER Draft Date of Exam:05/01/22 CHEST 1 VIEW, AP/PA ONLY Indication: Dyspnea. Comparison: 05/08/2019. Discussion: Single portable upright view of the chest was obtained. Mild cardiomegaly is noted. There is central venous congestion noted bilaterally. There is mild right perihilar infiltrates present. This likely represents developing edema, though pneumonia is not excluded. Antecedent granulomatous disease is noted, benign. No osseous abnormality. No pleural fluid or pneumothorax. Impression: 1. Cardiomegaly with central venous congestion. Additional right perihilar infiltrates could be seen with edema or pneumonia. Dictated on workstation # [id number] Dict: 05/01/22 1341 Trans: 05/01/22 1351 [facility] [id number] Interpreted by: MERI TAYLOR MD Electronically signed by: Reviewed: Reviewed by Me Departure Communication (Admissions) Time/Spoke to Admitting Phy: 13:45 Discussed the case with Dr. Carlson who agrees to admit the patient to the ICU on BiPAP with consultation to cardiology. Time/Spoke to Consulting Phy: 13:55 Discussed the case with Dr. Walsh who agrees to consult on the case. Impression Primary Impression: Acute on chronic respiratory failure with hypoxia and hypercapnia Additional Impressions: Elevated troponin I level Hyponatremia COPD exacerbation Disposition: ADMITTED INPATIENT Condition: Stable Admissions Decision to Admit Reason: Admit from ER (General) Decision to Admit/Date: May 01, 2022 Time/Decision to Admit Time: 13:40 Departure-Patient Inst. Referrals: TRAVIS SALGUERO MD (PCP/Family) Primary Care Physician VERÓNICA MARTINEZ May 01, 2022 12:38
[2022-05-01 12:56] VITALS: BP 162/93
[2022-05-01 13:03] LABS: BASOPHILS % (AUTO) 0 % (0-10); EOSINOPHILS # (AUTO) 0.1 10^3/uL (0.0-0.3); EOSINOPHILS % (AUTO) 1 % (0-10); HEMATOCRIT 41 % (35-52); HEMOGLOBIN 12.7 g/dL (11.5-16.0); LYMPHOCYTES # (AUTO) 0.4 10^3/uL (1.0-4.0); LYMPHOCYTES % (AUTO) 6 % (12-44); MEAN CORPUSCULAR HEMOGLOBIN 28 pg (25-34); MEAN CORPUSCULAR HGB CONC 31 g/dL (32-36); MEAN CORPUSCULAR VOLUME 92 fL (80-99); MEAN PLATELET VOLUME 9.4 fL (9.0-12.2); MONOCYTES # (AUTO) 0.4 10^3/uL (0.0-1.0); MONOCYTES % (AUTO) 7 % (0-12); NEUTROPHILS # (AUTO) 5.3 10^3/uL (1.8-7.8); NEUTROPHILS % (AUTO) 85 % (42-75); PLATELET COUNT 242 10^3/uL (130-400); WHITE BLOOD COUNT 6.2 10^3/uL (4.3-11.0)
[2022-05-01 13:16] LABS: ALBUMIN 4.2 GM/DL (3.2-4.5); POTASSIUM 4.4 MMOL/L (3.6-5.0)
[2022-05-01 13:17] LABS: CALCIUM 9.8 MG/DL (8.5-10.1)
[2022-05-01 13:18] LABS: FIBRIN DEGRADATION PRODUCTS 1.28 UG/ML (0.00-0.49); INR 1.1 (0.8-1.4); PROTHROMBIN TIME PATIENT 14.9 SEC (12.2-14.7); TOTAL PROTEIN 7.2 GM/DL (6.4-8.2)
[2022-05-01 13:20] LABS: BILIRUBIN,TOTAL 0.4 MG/DL (0.1-1.0)
[2022-05-01 13:22] LABS: CREATININE SERUM 0.72 MG/DL (0.60-1.30)
[2022-05-01 13:25] LABS: MAGNESIUM 1.8 MG/DL (1.6-2.4)
[2022-05-01 13:37] LABS: EOSINOPHILS % (MANUAL) 2 %; LYMPHOCYTES % (MANUAL) 9 %; MONOCYTES % (MANUAL) 6 %; NEUTROPHILS % (MANUAL) 83 %; RBC MORPH NORMAL
--- NOTE | 2022-05-01 13:51 | Diagnostic Imaging Report ---
Indication: Dyspnea. Comparison: 05/08/2019. Discussion: Single portable upright view of the chest was obtained. Mild cardiomegaly is noted. There is central venous congestion noted bilaterally. There is mild right perihilar infiltrates present. This likely represents developing edema, though pneumonia is not excluded. Antecedent granulomatous disease is noted, benign. No osseous abnormality. No pleural fluid or pneumothorax. Impression: 1. Cardiomegaly with central venous congestion. Additional right perihilar infiltrates could be seen with edema or pneumonia. Dictated by: Dictated on workstation # [id number]
[2022-05-01] MEDS ORDERED: methylPREDNISolone 125 MG (Solu-MEDROL) VIAL IVP ONE (14:00)
[2022-05-01 14:10] LABS: BILIRUBIN,URINE NEGATIVE (NEGATIVE); CLARITY,URINE CLOUDY; COLOR,URINE YELLOW; GLUCOSE, URINE (UA) NEGATIVE (NEGATIVE); KETONES,URINE NEGATIVE (NEGATIVE); LEUKOCYTE ESTERASE ,URINE 2+ (NEGATIVE); NITRITE,URINE NEGATIVE (NEGATIVE); PROTEIN,URINE 1+ (NEGATIVE)
[2022-05-01 14:17] LABS: BACTERIA,URINE FEW /HPF; CALCIUM OXALATE CRYSTALS,UR FEW /LPF; SQUAMOUS EPITHELIAL CELL,UR 0-2 /HPF; WBC,URINE 25-50 /HPF
[2022-05-01 14:55] VITALS: BP 174/100
[2022-05-01 15:00] VITALS: BP 148/115
[2022-05-01] MEDS ORDERED: ACETAMINOPHEN 650 MG SUPP (TYLENOL) PR PRN (15:15)
[2022-05-01] MEDS ORDERED: ONDANSETRON 4 MG/2 ML (SDV) Z0FRAN IV PRN (15:15)
--- NOTE | 2022-05-01 15:29 | Tele-ICU Consult ---
History of Present Illness History of Present Illness Date Seen by Provider: May 01, 2022 Time Seen by Provider: 15:28 Date of Admission 05/01/2022 History of Present Illness (Tele-ICU Physician , consultation) Available chart/ vitals / labs / Images reviewed H&P is from ER notes Patient's information available about PMH, allergy reviewed in EMR. ROS as per chart and RN report Video assessment done using teleICU camera, rest of exam as per RN Discussed with RN. She presented to the emergency room with a complaint of 4 that she slid out of recliner this morning without any injury. Also has been having some nausea vomiting and diarrhea with poor appetite. Apparently she has a COPD but not on any home oxygen. She is found to have a saturation of 53% on room air by the firefighters and subsequently improved with the addition of 4 L of oxygen to 94% saturation. No pain present. No history of loss of consciousness present. In the emergency room a blood gas done which showed hypercarbic respiratory acidosis and hypoxia. She is admitted to the intensive care unit and started on a BiPAP ventilation. Chest x-ray suggestive of congestive heart failure and she has about 2+ leg edema per RN. She has an EF of 460% with elevated left ventricular end-diastolic pressure based on her previous cardiac catheterization. Urine analysis suggestive of UTI. Allergies and Home Medications Allergies Uncoded Allergies: MERCURY (Allergy, Mild, 08/24/10) Home Medications Alprazolam 1 Mg Tablet, 1 MG PO BID PRN for ANXIETY Prescribed by: POP CARLSON on 08/07/211122 Amlodipine Besylate 10 Mg Tablet, 10 MG PO DAILY Prescribed by: POP CARLSON on 08/07/211121 Asenapine Maleate 10 Mg Tab.subl, 20 MG SL HS TAKES 2 (20MG) TABS Prescribed by: POP CARLSON on 08/07/211121 Aspirin 81 Mg Tablet.dr, 81 MG PO DAILY Prescribed by: POP CARLSON on 08/07/211121 Biotin 10,000 Mcg Capsule, 10,000 MCG PO BID Prescribed by: POP CARLSON on 08/07/211121 Cephalexin 250 Mg Capsule, 500 MG PO QID Prescribed by: POP CARLSON on 08/07/211121 Citalopram Hydrobromide 40 Mg Tablet, 40 MG PO DAILY Prescribed by: POP CARLSON on 08/07/211121 Cranberry Conc/Ascorbic Acid 1 Each Capsule, 2 CAP PO BID Prescribed by: POP CARLSON on 08/07/211121 Cyclosporine 1 Each Droperette, 1 DROP OU BID Prescribed by: POP CARLSON on 08/07/211121 Dorzolamide HCl/Timolol Maleat 10 Ml Drops, 1 DROP OU BID Prescribed by: POP CARLSON on 08/07/211121 Ferrous Sulfate 325 Mg Tablet, 325 MG PO BID Prescribed by: POP CARLSON on 08/07/211121 Fluconazole 100 Mg Tablet, 100 MG PO DAILY Prescribed by: POP CARLSON on 08/07/211121 Gabapentin 100 Mg Capsule, 100 MG PO BID Prescribed by: POP CARLSON on 08/07/211121 Guaifenesin/Pseudoephedrne HCl 1 Each Tab.er.12h, 1 EA PO DAILY Prescribed by: POP CARLSON on 08/07/211122 Hydrocortisone 453.6 Gm Cream..g., 1 APPLIC TOP BID PRN for DRY SKIN APPLY TO LEGS Prescribed by: POP CARLSON on 08/07/211121 Lamotrigine 200 Mg Tablet, 400 MG PO HS TAKES 2 (200MG) TABS Prescribed by: POP CARLSON on 08/07/211121 Latanoprostene Bunod 5 Ml Drops, 1 DROP OU HS Prescribed by: POP CARLSON on 08/07/211121 Meloxicam 15 Mg Tablet, 15 MG PO DAILY Prescribed by: POP CARLSON on 08/07/211121 Naproxen 500 Mg Tablet, 500 MG PO BID Prescribed by: POP CARLSON on 08/07/211121 Oxcarbazepine 300 Mg Tablet, 300 MG PO BID Prescribed by: POP CARLSON on 08/07/211121 Oxybutynin Chloride 5 Mg Tablet, 5 MG PO BID Prescribed by: POP CARLSON on 08/07/211121 Pantoprazole Sodium 40 Mg Tablet.dr, 40 MG PO DAILY Prescribed by: POP CARLSON on 08/07/211121 Tramadol HCl 50 Mg Tablet, 50 MG PO HS Prescribed by: POP CARLSON on 08/07/211122 Vit C/Queta AC/Lut/Copper/Znox 1 Each Capsule, 1 EACH PO BID Prescribed by: POP CARLSON on 08/07/21 1122 [Rephresh Pro B] , 2 EA PO BID, (Reported) [T-3/T-4 Imaging Services Director Compound] 108MCG/76MCG CAP, 1 CAP PO DAILY, (Reported) Past Medical/Social/Family Hx Patient Social History Tobacco Use?: No Smoking Status: Never a Smoker Smokeless Tobacco Frequency: Never a User Use of E-Cig and/or Vaping dev: No Substance use?: No Alcohol Use?: No Alcohol type: Wine Alcohol Frequency: Once in a while Pt stated abuse/neglect: No Immunizations Up To Date Influenza Vaccine Up-to-Date: No; Not Current First/Initial COVID19 Vaccinat: SEP 2020 Second COVID19 Vaccination Felipe: OCTOBER 2020 Tetanus Booster (TDap): Unknown Hepatitis A: No Hepatitis B: No TB Skin Test: None Date of Pneumonia Vaccine: Apr 01, 2018 Current Status Advance Directives: No Communicates: Verbally Primary Language: [place]an Preferred Spoken Language: [place]an Is interpretation needed?: No Review of Systems Constitutional: see HPI Other ros per rn Focused Exam Lactate Level 05/01/22 12:56: Lactic Acid Level 0.71 Height, Weight, BMI Height: 5'6.00" Weight: 254lbs. 0oz. 115.324207rf; 48.04 BMI Method:Stated Lactic Acid Level Laboratory Tests Test 05/01/22 12:56 Lactic Acid Level 0.71 MMOL/L (0.50-2.00) Exam Exam Patient acknowledged, consented, and participated in this virtual visit which was conducted using real time audio/video Vital Signs Date Time Temp Pulse Resp B/P (MAP) Pulse Ox O2 Delivery O2 Flow Rate FiO2 05/01/22 15:00 36.2 66 92 2 05/01/22 14:55 56 19 96 35.00 05/01/22 14:45 99 NIV Bilevel 35 05/01/22 14:40 56 16 169/84 100 NIV Bilevel 05/01/22 12:56 57 20 100 35.00 05/01/22 12:23 36.2 66 18 148/115 (126) 92 Nasal Cannula 2.00 Height & Weight Height: 5'6.00" Weight: 254lbs. 0oz. 115.643428lt; 48.04 BMI Method:Stated General Appearance: Moderate Distress Capillary Refill: Greater Than 3 Seconds Gastrointestinal: non tender, soft Other comments PE PER RN Results Lab Laboratory Tests 05/01/22 12:56 Assessment/Plan Assessment/Plan (Tele-ICU Physician , consultation) Available chart/ vitals / labs / Images reviewed H&P is from ER notes Patient's information available about PMH, allergy reviewed in EMR. ROS as per chart and RN report Video assessment done using teleICU camera, rest of exam as per RN Discussed with RN. She presented to the emergency room with a complaint of 4 that she slid out of recliner this morning without any injury. Also has been having some nausea vomiting and diarrhea with poor appetite. Apparently she has a COPD but not on any home oxygen. She is found to have a saturation of 53% on room air by the firefighters and subsequently improved with the addition of 4 L of oxygen to 94% saturation. No pain present. No history of loss of consciousness present. In the emergency room a blood gas done which showed hypercarbic respiratory acidosis and hypoxia. She is admitted to the intensive care unit and started on a BiPAP ventilation. Chest x-ray suggestive of congestive heart failure and she has about 2+ leg edema per RN. She has an EF of 460% with elevated left ventricular end-diastolic pressure based on her previous cardiac catheterization. Urine analysis suggestive of UTI. Critical Care: Critically Ill Patient Time spent with patient (mins): 35 WALLACE GAO MD May 01, 2022 15:29
[2022-05-01] MEDS ORDERED: FUROSEMIDE 40 MG/4 ML INJ (LASIX) IVP ONE (15:30)
[2022-05-01] MEDS: ASPIRIN 81 MG CHEW (CHILDREN'S ASA) PO SCH (15:33)
[2022-05-01] MEDS: ENOXAPARIN 40 MG/0.4 ML (LOVENOX) SYR SC SCH (15:33)
[2022-05-01] MEDS: GABAPENTIN 100 MG (NEURONTIN) CAP PO SCH ×2 (15:33→20:59)
[2022-05-01] MEDS ORDERED: FLU QUAD HIGH DOSE 240 MCG/0.7 ML 2022-23 (FLUZONE) IM ONE (15:45)
[2022-05-01] MEDS: LACTATED RINGERS 1,000 ML IV SCH (15:51)
[2022-05-01] MEDS ORDERED: RT-ALBUTEROL/IPRATROPIUM 3 ML (DUONEB) VIAL INH PRN (16:00)
[2022-05-01] MEDS: cefTRIAXone 1 GM PRE-MIX 50 ML IV SCH (16:31)
[2022-05-01] MEDS: RT-ALBUTEROL/IPRATROPIUM 3 ML (DUONEB) VIAL INH SCH ×2 (18:33→22:51)
[2022-05-01 18:34] VITALS: BP 176/88
[2022-05-01] MEDS ORDERED: hydrALAZINE (APESOLINE) 20 MG/ML VIAL IV PRN (19:00)
--- NOTE | 2022-05-01 19:59 | History & Physical-Hospitalist ---
History of Present Illness HPI/Chief Complaint Terrie Steele is a 66 year old female with PMH HTN, HLD, hypothyroidism, lymphedema, morbid obesity, uterine cancer s/p hysterectomy, anxiety, depression, bipolar disorder, ADHD, who presented after a fall. She was sitting in her recliner at home and slid out and could not get up. She does not walk at baseline and only transfers using a walker to move to her wheelchair. She reports weakness. She has had nausea and vomiting. She has had diarrhea. She has not been eating well. She denies shortness of breath and cough. She does not normally require supplemental oxygen. She denies fevers and chills. She denies dysuria, urgency, and frequency. After her last hospitalization, she was discharged to [facility], but she has been back home since September. Source: patient Exam Limitations: no limitations Date Seen 05/01/22 Time Seen by a Provider: 19:00 Attending Physician Marcel Toussaint MD PCP Admitting Physician: Pop Carlson MD Attending Physician: Pop Carlson MD Referring Physician Date of Admission May 01, 2022 at 14:00 Home Medications & Allergies Home Medications Reviewed patient Home Medication Reconciliation performed by pharmacy medication reconciliations sonography technician and/or nursing. Patients Allergies have been reviewed. Allergies Allergies Uncoded Allergies MERCURY ( Allergy, Mild, 08/24/10) Past Cuijlrn-Xwimrr-Bhrbaj Hx Patient Social History Tobacco Use?: No Smoking Status: Never a Smoker Smokeless Tobacco Frequency: Never a User Use of E-Cig and/or Vaping dev: No Substance use?: No Alcohol Use?: No Alcohol type: Wine Alcohol Frequency: Once in a while Pt feels they are or have been: No Immunizations Up To Date Date of Influenza Vaccine: Mar 30, 2019 First/Initial COVID19 Vaccinat: SEP 2020 Second COVID19 Vaccination Felipe: OCTOBER 2020 Tetanus Booster (TDap): Unknown Hepatitis A: No Hepatitis B: No Date of Pneumonia Vaccine: Apr 01, 2018 Seasonal Allergies Seasonal Allergies: Yes Current Status Advance Directives: No Communicates: Verbally Primary Language: Greenlandic Preferred Spoken Language: Greenlandic Is interpretation needed?: No Past Medical History Surgeries: Hysterectomy, Orthopedic High Cholesterol, Hypertension Sexually Transmitted Disease: No Bladder Infection, Kidney Stones, UTI-Chronic Chronic Diarrhea Arthritis, Chronic Back Pain Hypothyroidsim Glaucoma Uterine What Type of Treatment Did You: Surgical Intervention ADD/ADHD, Anxiety, Bipolar, Depression Blood Disorders: No Adverse Reaction/Blood Tranf: No Family Medical History Alcoholism 03 FATHER, Age:96 03 MOTHER, , Age:60 years and older 09 BROTHER, Age:71 09 BROTHER, , Age:40's - 50 09 BROTHER, Age:66 09 BROTHER, Age:62 09 SISTER, Age:59 Cancer 03 MOTHER, , Age:60 years and older 09 BROTHER, , Age:40's - 50 Cataract 03 FATHER, Age:96 Family history: Arthritis 09 SISTER, Age:59 Family history: Gastrointestinal disease 09 BROTHER, Age:62 Family history: Thyroid disorder 09 SISTER, Age:59 Headache 03 FATHER, Age:96 03 MOTHER, , Age:60 years and older 09 BROTHER, Age:71 09 BROTHER, , Age:40's - 50 09 BROTHER, Age:66 09 BROTHER, Age:62 09 SISTER, Age:59 History of drug abuse Visual impairment No Family History of: Abdominal aortic aneurysm [place]'s disease Aphasia Cancer of colon Chest pain Congenital heart disease Congestive heart failure Cystic fibrosis Dementia Dysphagia Family history: Allergy Family history: Alzheimer's disease Family history: Asthma Family history: Breast disease Family history: Cardiovascular disease Family history: Coronary thrombosis Family history: Diabetes mellitus Family history: Glaucoma Family history: Hypertension Family history: Osteoporosis Hearing loss Heart disease Hereditary disease History of - anemia History of - respiratory disease Human immunodeficiency virus (HIV) seropositivity Hypercholesterolemia Infertile Kidney disease Malignant neoplasm of lung Myocardial infarction Parkinson's disease Prostate cancer Psychotic disorder Seizure disorder Stroke Tuberculosis Review of Systems Constitutional: weakness EENTM: no symptoms reported Respiratory: no symptoms reported Cardiovascular: no symptoms reported Gastrointestinal: diarrhea, nausea Genitourinary: no symptoms reported Physical Exam Physical Exam Vital Signs Vital Signs - First Documented 05/01/22 05/01/22 12:23 14:45 Temp 36.2 Pulse 66 Resp 18 B/P (MAP) 148/115 (126) Pulse Ox 92 O2 Delivery Nasal Cannula O2 Flow Rate 2.00 FiO2 35 Capillary Refill : Less Than 3 Seconds Height, Weight, BMI Height: 5'6.00" Weight: 254lbs. 0oz. 115.987439zm; 48.04 BMI Method:Stated General Appearance: No Apparent Distress, Obese HEENT: PERRL/EOMI, Other (wearing BiPAP) Neck: Normal Inspection, Supple Respiratory: No Respiratory Distress, Decreased Breath Sounds Cardiovascular: Regular Rate, Rhythm, No Murmur Gastrointestinal: Normal Bowel Sounds, Non Tender, Soft Extremity: Non Tender, Pedal Edema Neurologic/Psychiatric: Alert, Normal Mood/Affect Skin: Normal Color, Warm/Dry Results Results/Procedures Labs Laboratory Tests 05/01/22 12:56 05/02/22 02:53 Patient resulted labs reviewed. Imaging: Reviewed Imaging Report Assessment/Plan Admission Diagnosis Acute respiratory failure with hypoxia and hypercapnia Admission Status: Inpatient Order (span 2 midnights) Reason for Inpatient Admission: Respiratory failure Assessment and Plan Acute respiratory failure with hypoxia and hypercapnia COPD exacerbation Pulmonary edema ABG with acute hypercapnia and hypoxia Started on BiPAP TeleICU consulted IV steroids MAT protocol No evidence of pneumonia, procal negative IV Lasix Elevated troponin Likely secondary to respiratory failure No chest pain Cardiology consulted HTN HLD Hypothyroidism Lymphedema Morbid obesity History of uterine cancer Anxiety Depression Bipolar disorder ADHD Continue home meds as able DVT prophylaxis: Lovenox Critical Care Critically Ill Patient Diagnosis/Problems Diagnosis/Problems (1) Acute respiratory failure with hypoxia Status: Acute (2) COPD exacerbation Status: Acute (3) Elevated troponin I level Status: Acute (4) Morbid obesity Status: Acute (5) Lymphedema of lower extremity Status: Acute POP CARLSON MD May 01, 2022 19:59
[2022-05-01 20:37] LABS: ABG BASE EXCESS 8.9 MMOL/L (-2.5-2.5); ABG OXYGEN SATURATION 70 % (94-100); ABG TCO2 37.7 MMOL/L (21.0-31.0)
[2022-05-01 20:49] LABS: ALLENS TEST YES-POS; INSPIRED O2 35%; PATIENT TEMP 35%; VENTILATOR NO
[2022-05-01 20:51] LABS: ABG PCO2 75 MMHG (35-45); ABG PO2 39 MMHG (79-93)
[2022-05-01] MEDS: OXcarbazepine (TRILEPTAL) 300 MG TAB PO SCH (20:59)
[2022-05-01] MEDS: OXYBUTYNIN (DITROPAN) 5 MG TAB PO SCH (20:59)
[2022-05-01 22:51] VITALS: BP 123/59
[2022-05-01] MEDS: methylPREDNISolone 125 MG (Solu-MEDROL) VIAL IV SCH (23:21)
[2022-05-02 02:10] VITALS: BP 149/82
[2022-05-02] MEDS: RT-ALBUTEROL/IPRATROPIUM 3 ML (DUONEB) VIAL INH SCH ×6 (02:10→22:12)
[2022-05-02] MEDS: ENOXAPARIN 40 MG/0.4 ML (LOVENOX) SYR SC SCH ×2 (02:58→15:08)
[2022-05-02 03:24] LABS: BASOPHILS % (AUTO) 0 % (0-10); EOSINOPHILS % (AUTO) 0 % (0-10); HEMATOCRIT 39 % (35-52); HEMOGLOBIN 12.2 g/dL (11.5-16.0); LYMPHOCYTES # (AUTO) 0.3 10^3/uL (1.0-4.0); LYMPHOCYTES % (AUTO) 7 % (12-44); MEAN CORPUSCULAR HEMOGLOBIN 29 pg (25-34); MEAN CORPUSCULAR HGB CONC 31 g/dL (32-36); MEAN CORPUSCULAR VOLUME 91 fL (80-99); MEAN PLATELET VOLUME 10.1 fL (9.0-12.2); MONOCYTES % (AUTO) 1 % (0-12); NEUTROPHILS # (AUTO) 3.5 10^3/uL (1.8-7.8); NEUTROPHILS % (AUTO) 91 % (42-75); PLATELET COUNT 191 10^3/uL (130-400); WHITE BLOOD COUNT 3.8 10^3/uL (4.3-11.0)
[2022-05-02 03:29] LABS: POTASSIUM 4.2 MMOL/L (3.6-5.0)
[2022-05-02 03:30] LABS: CALCIUM 9.3 MG/DL (8.5-10.1)
[2022-05-02 03:35] LABS: CREATININE SERUM 0.69 MG/DL (0.60-1.30); PHOSPHORUS 3.5 MG/DL (2.3-4.7)
[2022-05-02 03:37] LABS: MAGNESIUM 1.7 MG/DL (1.6-2.4)
[2022-05-02] MEDS ORDERED: MAGNESIUM 1 GM/100 ML IVPB 200 ML IV ONE (04:37)
[2022-05-02] MEDS: MAGNESIUM 1 GM/100 ML IVPB 100 ML IV SCH ×2 (04:44→05:11)
[2022-05-02 04:57] LABS: ABG BASE EXCESS 8.1 MMOL/L (-2.5-2.5); ABG OXYGEN SATURATION 97 % (94-100); ABG PCO2 67 MMHG (35-45); ABG PO2 82 MMHG (79-93); ABG TCO2 36.2 MMOL/L (21.0-31.0); ALLENS TEST YES-POS
[2022-05-02 04:58] LABS: ABG PH 7.33 (7.37-7.43); INSPIRED O2 35%; PATIENT TEMP 36.7; VENTILATOR NO
[2022-05-02] MEDS: methylPREDNISolone 125 MG (Solu-MEDROL) VIAL IV SCH ×3 (05:11→21:01)
--- NOTE | 2022-05-02 06:17 | Diagnostic Imaging Report ---
EXAMINATION: Chest 1 view HISTORY: Respiratory failure. Follow-up. COMPARISON: 05/01/2022. FINDINGS: The lung volumes are normal. No focal consolidation is seen. Scattered patchy opacities are seen in the lungs. No large pleural effusion or pneumothorax is seen. Stable size of the cardiac silhouette. No acute osseous abnormality is seen. IMPRESSION: 1. Scattered patchy opacities, suggestive of edema. Components of infection could also be present. Dictated by: Dictated on workstation # [id number]
--- NOTE | 2022-05-02 08:50 | Tele-ICU Progress Note ---
Subjective Date Seen by a Provider: May 02, 2022 Subjective/Events-last exam This virtual visit was conducted using real time audio/video. Thank you for asking us to see this patient for respiratory insufficiency due to AECOPD, CHF, elev trop. Recent events: admitted 05/01/2022. Off BiPAP since approx. 5 AM today. PE: Obese, chronically ill appearing. VSS. O2 sat 92% on 2 LPM. HEENT: No obvious masses, adenopathy or JVD. Chest: diminished on auscultation. CV: RRR S1 S2 No murmur or added sounds. Abd: Non-tender. Bowel sounds Y. : Unremarkable. Coulter Y. HOME SECURITY ALARM INSTALLER/psychiatric: Grossly intact. No obvious focal findings. Extremities: 2+ edema. Capillary refill < 3 seconds. Skin: unremarkable. Results: Elevated trop 0.225. Decreased Na 129, WCC 3.8. B.33/67/82 on 35%. CXR: Hyperinflated, patchy opacities bilat. Available chart/ vitals / labs / images reviewed. Video assessment done using teleICU camera, rest of exam as per RN. A/P: Respiratory insufficiency: Continue present management with NC, PRN BiPAP, Duonebs, medrol. Monitor for increasing oxygenation needs and/or need for intubation. Critical Care: critically ill patient. Cont. ASA, abx, martell., lamictal, celexa,xanax, PPI, Anai. Cards. consult pending. Discussed with VALE Flowers.. Asked RN to reach out to eICU if any questions or concerns later. Time spent with patient/coordination of care with other health professionals (mins): 25 Sepsis Event Evaluation Height, Weight, BMI Height: 5'6.00" Weight: 254lbs. 0oz. 115.079717te; 45.64 BMI Method:Stated Focused Exam Lactate Level 05/01/22 12:56: Lactic Acid Level 0.71 Exam Exam Patient acknowledged, consented, and participated in this virtual visit which was conducted using real time audio/video Vital Signs Date Time Temp Pulse Resp B/P (MAP) Pulse Ox O2 Delivery O2 Flow Rate FiO2 05/02/22 08:00 68 13 170/82 (111) 94 Nasal Cannula 2.00 05/02/22 07:50 36.6 05/02/22 07:00 67 05/02/22 07:00 65 13 163/88 (113) 96 Nasal Cannula 2.00 05/02/22 06:00 68 13 140/74 (96) 95 Nasal Cannula 2.00 05/02/22 05:13 Nasal Cannula 2.00 05/02/22 05:00 65 18 149/83 (105) 97 NIV Bilevel 35.00 05/02/22 04:00 96 NIV Bilevel 35 05/02/22 04:00 69 20 134/74 (94) 97 NIV Bilevel 35.00 05/02/22 03:00 68 18 137/75 (95) 96 NIV Bilevel 35.00 05/02/22 02:10 63 21 95 35.00 05/02/22 02:00 66 18 149/82 (104) 97 NIV Bilevel 35.00 05/02/22 01:00 66 18 144/67 (92) 96 NIV Bilevel 35.00 05/02/22 01:00 67 05/02/22 00:00 64 134/69 (90) 96 NIV Bilevel 35.00 05/01/22 23:25 97 NIV Bilevel 35 05/01/22 23:25 36.7 NIV Bilevel 35.00 05/01/22 23:00 62 132/70 (90) 97 NIV Bilevel 35.00 05/01/22 22:51 64 18 95 35.00 05/01/22 22:30 NIV Bilevel 35.00 05/01/22 22:06 Nasal Cannula 2.00 05/01/22 22:00 65 16 130/72 (91) 96 Nasal Cannula 4.00 05/01/22 21:03 Nasal Cannula 4.00 05/01/22 21:00 64 14 113/96 (102) 97 Nasal Cannula 2.00 05/01/22 20:58 Nasal Cannula 2.00 05/01/22 20:00 63 19 165/83 (110) 97 NIV Bilevel 35.00 05/01/22 19:20 100 NIV Bilevel 35 05/01/22 19:00 37.6 58 20 160/77 (104) 100 NIV Bilevel 35.00 05/01/22 19:00 60 05/01/22 18:34 62 20 95 35.00 05/01/22 18:00 62 14 169/99 (122) 98 NIV Bilevel 35.00 05/01/22 17:00 57 13 167/97 (120) 100 NIV Bilevel 35.00 05/01/22 16:27 59 05/01/22 16:00 59 10 164/118 (133) 100 NIV Bilevel 35.00 05/01/22 15:00 56 13 167/112 (130) 100 NIV Bilevel 35.00 05/01/22 15:00 36.2 66 92 2 05/01/22 14:55 56 19 96 35.00 05/01/22 14:45 99 NIV Bilevel 35 05/01/22 14:40 56 16 169/84 100 NIV Bilevel 05/01/22 12:56 57 20 100 35.00 05/01/22 12:23 36.2 66 18 148/115 (126) 92 Nasal Cannula 2.00 I & O 05/02/22 07:00 Intake Total 1525 ml Output Total 3870 ml Balance -2345 ml Height & Weight Height: 5'6.00" Weight: 254lbs. 0oz. 115.872647fo; 45.64 BMI Method:Stated General Appearance: No Apparent Distress, Obese HEENT: PERRL/EOMI, Other (wearing BiPAP) Neck: Normal Inspection, Supple Respiratory: No Respiratory Distress, Decreased Breath Sounds Cardiovascular: Regular Rate, Rhythm, No Murmur Capillary Refill: Less Than 3 Seconds Gastrointestinal: non tender, soft Extremity: Non Tender, Pedal Edema Neurologic/Psychiatric: Alert, Normal Mood/Affect Skin: Normal Color, Warm/Dry Results Lab Laboratory Tests 05/01/22 12:56 05/02/22 02:53 Assessment/Plan Assessment/Plan See free text, Critical Care: Critically Ill Patient MARCELLA KEITH MD May 02, 2022 08:50
[2022-05-02] MEDS: amLODIPine 10 MG (NORVASC) TAB PO SCH (08:58)
[2022-05-02] MEDS: ASPIRIN 81 MG CHEW (CHILDREN'S ASA) PO SCH (08:58)
[2022-05-02] MEDS: PANTOPRAZOLE 20 MG TABLET (PROTONIX) PO SCH (08:58)
[2022-05-02] MEDS: GABAPENTIN 100 MG (NEURONTIN) CAP PO SCH ×3 (08:58→21:01)
[2022-05-02] MEDS: OXYBUTYNIN (DITROPAN) 5 MG TAB PO SCH ×2 (08:58→21:01)
[2022-05-02] MEDS: OXcarbazepine (TRILEPTAL) 300 MG TAB PO SCH ×2 (08:59→21:01)
[2022-05-02] MEDS: ALPRAZolam 0.5 MG (XANAX) TAB PO PRN (09:13)
--- NOTE | 2022-05-02 09:46 | Consultation-Cardiology ---
HPI-Cardiology Cardiology Consultation Date of Consultation 05/02/22 Date of Admission Time Seen by Provider: 09:41 Indication: Acute respiratory failure HPI 66-year-old lady who was admitted through the emergency room for acute respiratory failure. She has history of COPD but does not require oxygen at home. Patient called EMS for increasing dyspnea, her oxygen saturation was in the 50s. She was started on oxygen, received bronchodilator. On my evaluation today she is feeling better, she is laying down comfortably in bed on 2 L nasal cannula with oxygen in the 90s. Did not have any chest pain or shortness of breath. No palpitation. No syncope or near syncopal episodes. No claudications. Home Medications & Allergies Allergies: Uncoded Allergies: MERCURY (Allergy, Mild, 08/24/10) Home Medication List Reviewed: Yes TUH-Ofhdlr-Yjmscx Hx Patient Social History Marital Status: Smoking Status: Never a Smoker 2nd Hand Smoke Exposure: No Recent Hopitalizations: No Have you traveled recently?: No Alcohol Use?: No Immunizations Up To Date Tetanus Booster (TDap): More than 5yrs Date of Pneumonia Vaccine: Apr 01, 2018 Date of Influenza Vaccine: Mar 30, 2019 Past Medical History Discussed below Family Medical History Family History: Alcoholism 03 FATHER, Age:96 03 MOTHER, , Age:60 years and older 09 BROTHER, Age:71 09 BROTHER, , Age:40's - 50 09 BROTHER, Age:66 09 BROTHER, Age:62 09 SISTER, Age:59 Cancer 03 MOTHER, , Age:60 years and older 09 BROTHER, , Age:40's - 50 Cataract 03 FATHER, Age:96 Family history: Arthritis 09 SISTER, Age:59 Family history: Gastrointestinal disease 09 BROTHER, Age:62 Family history: Thyroid disorder 09 SISTER, Age:59 Headache 03 FATHER, Age:96 03 MOTHER, , Age:60 years and older 09 BROTHER, Age:71 09 BROTHER, , Age:40's - 50 09 BROTHER, Age:66 09 BROTHER, Age:62 09 SISTER, Age:59 History of drug abuse Visual impairment No Family History of: Abdominal aortic aneurysm [place]'s disease Aphasia Cancer of colon Chest pain Congenital heart disease Congestive heart failure Cystic fibrosis Dementia Dysphagia Family history: Allergy Family history: Alzheimer's disease Family history: Asthma Family history: Breast disease Family history: Cardiovascular disease Family history: Coronary thrombosis Family history: Diabetes mellitus Family history: Glaucoma Family history: Hypertension Family history: Osteoporosis Hearing loss Heart disease Hereditary disease History of - anemia History of - respiratory disease Human immunodeficiency virus (HIV) seropositivity Hypercholesterolemia Infertile Kidney disease Malignant neoplasm of lung Myocardial infarction Parkinson's disease Prostate cancer Psychotic disorder Seizure disorder Stroke Tuberculosis Review of Systems-General Review of Systems Constitutional: see HPI, weakness EENTM: see HPI, no symptoms reported Respiratory: see HPI; No cough, No dyspnea on exertion, No hemoptysis, No orthopnea, No phlegm; short of breath; No stridor, No wheezing, No other Cardiovascular: see HPI; No chest pain, No edema, No Hx of Intervention, No palpitations, No syncope, No vascular heart diseas, No other Gastrointestinal: see HPI, diarrhea, nausea Genitourinary: no symptoms reported, see HPI Musculoskeletal: see HPI; No back pain, No joint pain Skin: no symptoms reported, see HPI Psychiatric/Neurological: No Symptoms Reported, See HPI All Other Systems Reviewed Negative Unless Noted: Yes Reviewed Test Results Reviewed Test Results Lab Laboratory Tests Test 05/01/22 12:20 05/01/22 12:35 05/01/22 12:56 05/01/22 13:59 Range/Units Blood Gas Puncture Site RT RADIAL Blood Gas Patient Temperature 36.2 Arterial Blood pH 7.27 *L 7.37-7.43 Arterial Blood Partial Pressure CO2 70 H 35-45 MMHG Arterial Blood Partial Pressure O2 58 L 79-93 MMHG Arterial Blood HCO3 31 H 23-27 MMOL/L Arterial Blood Total CO2 33.5 H 21.0-31.0 MMOL/L Arterial Blood Oxygen Saturation 90 L 94-100 % Arterial Blood Base Excess 4.6 H -2.5-2.5 MMOL/L Skyler Test YES-POS Blood Gas Ventilator Setting NO Blood Gas Inspired Oxygen 2L Influenza Type A (RT-PCR) Not Detected Not Detecte Influenza Type B (RT-PCR) Not Detected Not Detecte SARS-CoV-2 RNA (RT-PCR) Not Detected Not Detecte White Blood Count 6.2 4.3-11.0 10^3/uL Red Blood Count 4.47 3.80-5.11 10^6/uL Hemoglobin 12.7 11.5-16.0 g/dL Hematocrit 41 35-52 % Mean Corpuscular Volume 92 80-99 fL Mean Corpuscular Hemoglobin 28 25-34 pg Mean Corpuscular Hemoglobin Concent 31 L 32-36 g/dL Red Cell Distribution Width 14.6 H 10.0-14.5 % Platelet Count 242 130-400 10^3/uL Mean Platelet Volume 9.4 9.0-12.2 fL Immature Granulocyte % (Auto) 1 % Neutrophils (%) (Auto) 85 H 42-75 % Lymphocytes (%) (Auto) 6 L 12-44 % Monocytes (%) (Auto) 7 0-12 % Eosinophils (%) (Auto) 1 0-10 % Basophils (%) (Auto) 0 0-10 % Neutrophils # (Auto) 5.3 1.8-7.8 10^3/uL Lymphocytes # (Auto) 0.4 L 1.0-4.0 10^3/uL Monocytes # (Auto) 0.4 0.0-1.0 10^3/uL Eosinophils # (Auto) 0.1 0.0-0.3 10^3/uL Basophils # (Auto) 0.0 0.0-0.1 10^3/uL Immature Granulocyte # (Auto) 0.0 0.0-0.1 10^3/uL Neutrophils % (Manual) 83 % Lymphocytes % (Manual) 9 % Monocytes % (Manual) 6 % Eosinophils % (Manual) 2 % Blood Morphology Comment NORMAL Prothrombin Time 14.9 H 12.2-14.7 SEC INR Comment 1.1 0.8-1.4 Activated Partial Thromboplast Time 35 24-35 SEC D-Dimer 1.28 H 0.00-0.49 UG/ML Sodium Level 128 L 135-145 MMOL/L Potassium Level 4.4 3.6-5.0 MMOL/L Chloride Level 92 L 98-107 MMOL/L Carbon Dioxide Level 27 21-32 MMOL/L Anion Gap 9 5-14 MMOL/L Blood Urea Nitrogen 6 L 7-18 MG/DL Creatinine 0.72 0.60-1.30 MG/DL Estimat Glomerular Filtration Rate 91 BUN/Creatinine Ratio 8 Glucose Level 120 H 70-105 MG/DL Lactic Acid Level 0.71 0.50-2.00 MMOL/L Calcium Level 9.8 8.5-10.1 MG/DL Corrected Calcium 9.6 8.5-10.1 MG/DL Magnesium Level 1.8 1.6-2.4 MG/DL Total Bilirubin 0.4 0.1-1.0 MG/DL Aspartate Amino Transf (AST/SGOT) 66 H 5-34 U/L Alanine Aminotransferase (ALT/SGPT) 43 0-55 U/L Alkaline Phosphatase 67 40-136 U/L Troponin I 0.198 H <0.028 NG/ML C-Reactive Protein High Sensitivity 2.01 H 0.00-0.50 MG/DL B-Type Natriuretic Peptide 141.0 H <100.0 PG/ML Total Protein 7.2 6.4-8.2 GM/DL Albumin 4.2 3.2-4.5 GM/DL Procalcitonin 0.01 <0.10 NG/ML Urine Color YELLOW Urine Clarity CLOUDY Urine pH 6.0 5-9 Urine Specific [place] >=1.030 1.016-1.022 Urine Protein 1+ H NEGATIVE Urine Glucose (UA) NEGATIVE NEGATIVE Urine Ketones NEGATIVE NEGATIVE Urine Nitrite NEGATIVE NEGATIVE Urine Bilirubin NEGATIVE NEGATIVE Urine Urobilinogen 0.2 < = 1.0 MG/DL Urine Leukocyte Esterase 2+ H NEGATIVE Urine RBC (Auto) 1+ H NEGATIVE Urine RBC 10-25 H /HPF Urine WBC 25-50 H /HPF Urine Squamous Epithelial Cells 0-2 /HPF Urine Crystals PRESENT H /LPF Urine Calcium Oxalate Crystals FEW H /LPF Urine Bacteria FEW H /HPF Urine Casts NONE /LPF Urine Mucus NEGATIVE /LPF Urine Culture Indicated CULTURE PENDING Test 05/01/22 18:03 05/01/22 20:32 05/02/22 02:53 05/02/22 04:50 Range/Units Troponin I 0.125 H 0.225 H <0.028 NG/ML Blood Gas Puncture Site RIGHT RADIAL RIGHT RADIAL Blood Gas Patient Temperature 35% 36.7 Arterial Blood pH 7.30 *L 7.33 *L 7.37-7.43 Arterial Blood Partial Pressure CO2 75 *H 67 H 35-45 MMHG Arterial Blood Partial Pressure O2 39 *L 82 79-93 MMHG Arterial Blood HCO3 35 H 34 H 23-27 MMOL/L Arterial Blood Total CO2 37.7 H 36.2 H 21.0-31.0 MMOL/L Arterial Blood Oxygen Saturation 70 L 97 94-100 % Arterial Blood Base Excess 8.9 H 8.1 H -2.5-2.5 MMOL/L Skyler Test YES-POS YES-POS Blood Gas Ventilator Setting NO NO Blood Gas Inspired Oxygen 35% 35% White Blood Count 3.8 L 4.3-11.0 10^3/uL Red Blood Count 4.28 3.80-5.11 10^6/uL Hemoglobin 12.2 11.5-16.0 g/dL Hematocrit 39 35-52 % Mean Corpuscular Volume 91 80-99 fL Mean Corpuscular Hemoglobin 29 25-34 pg Mean Corpuscular Hemoglobin Concent 31 L 32-36 g/dL Red Cell Distribution Width 14.1 10.0-14.5 % Platelet Count 191 130-400 10^3/uL Mean Platelet Volume 10.1 9.0-12.2 fL Immature Granulocyte % (Auto) 1 % Neutrophils (%) (Auto) 91 H 42-75 % Lymphocytes (%) (Auto) 7 L 12-44 % Monocytes (%) (Auto) 1 0-12 % Eosinophils (%) (Auto) 0 0-10 % Basophils (%) (Auto) 0 0-10 % Neutrophils # (Auto) 3.5 1.8-7.8 10^3/uL Lymphocytes # (Auto) 0.3 L 1.0-4.0 10^3/uL Monocytes # (Auto) 0.0 0.0-1.0 10^3/uL Eosinophils # (Auto) 0.0 0.0-0.3 10^3/uL Basophils # (Auto) 0.0 0.0-0.1 10^3/uL Immature Granulocyte # (Auto) 0.0 0.0-0.1 10^3/uL Sodium Level 129 L 135-145 MMOL/L Potassium Level 4.2 3.6-5.0 MMOL/L Chloride Level 93 L 98-107 MMOL/L Carbon Dioxide Level 29 21-32 MMOL/L Anion Gap 7 5-14 MMOL/L Blood Urea Nitrogen 7 7-18 MG/DL Creatinine 0.69 0.60-1.30 MG/DL Estimat Glomerular Filtration Rate 94 BUN/Creatinine Ratio 10 Glucose Level 154 H 70-105 MG/DL Calcium Level 9.3 8.5-10.1 MG/DL Phosphorus Level 3.5 2.3-4.7 MG/DL Magnesium Level 1.7 1.6-2.4 MG/DL Physical Exam Physical Exam Vital Signs Vital Signs - First Documented 05/01/22 05/01/22 12:23 14:45 Temp 36.2 Pulse 66 Resp 18 B/P (MAP) 148/115 (126) Pulse Ox 92 O2 Delivery Nasal Cannula O2 Flow Rate 2.00 FiO2 35 Capillary Refill : Less Than 3 Seconds Height, Weight, BMI Height: 5'6.00" Weight: 254lbs. 0oz. 115.048032dx; 45.64 BMI Method:Stated General Appearance: No Apparent Distress, WD/WN, Obese Eyes: Bilateral Eye Normal Inspection, Bilateral Eye PERRL, Bilateral Eye EOMI HEENT: PERRL/EOMI, TMs Normal, Other (wearing BiPAP) Neck: Normal Inspection, Supple Respiratory: Chest Non Tender, No Respiratory Distress, Decreased Breath Sounds Cardiovascular: Regular Rate, Rhythm, No Murmur Gastrointestinal: Normal Bowel Sounds, Non Tender, Soft Back: Normal Inspection, No CVA Tenderness, No Vertebral Tenderness Extremity: Non Tender, Pedal Edema Neurologic/Psychiatric: Alert, Normal Mood/Affect Skin: Normal Color, Warm/Dry Lymphatic: No Adenopathy A/P-Cardiology Admission Diagnosis Acute respiratory failure Type II myocardial infarction Coronary artery disease Palpitation Assessment/Plan Acute respiratory failure with acute hypoxemia. Oxygen saturation was around 50% on arrival of EMT, started on oxygen and had significant improvement. Currently on 2 L nasal cannula and managed by primary care team Non-ST elevation myocardial infarction, most probably type II myocardial infarc tion secondary to hypoxemia. Continue to monitor closely. Coronary artery disease Cardiac catheterization done in 2012 showing normal coronaries with normal left ventricular function Had a stress test in September 2018 showing small amount of anterolateral ischemia with ejection fraction 58%. Patient has been refusing cardiac catheterization She has been following and managed by Dr. Torres Hypertension, probably secondary to steroids. Continue to monitor blood pressure History of palpitation, reported improvement. Continue to monitor Obesity, BMI 45, discussed weight loss Patient had a sleep study done [place] [address] Hudson and reported no significant obstructive disease Chronic pedal edema, chronic mild venous insufficiency History of bipolar disorder monitored by her primary psychiatrist Degenerative joint disease Mild bilateral carotid stenosis, ultrasound was done in 2018. KARINA TEAGUE MD May 02, 2022 09:46
--- NOTE | 2022-05-02 11:44 | Progress Note - Hospitalist ---
Subjective HPI/CC On Admission Date Seen by Provider: May 02, 2022 Time Seen by Provider: 10:30 Terrie Steele is a 66 year old female with PMH HTN, HLD, hypothyroidism, lymphedema, morbid obesity, uterine cancer s/p hysterectomy, anxiety, depression, bipolar disorder, ADHD, who presented after a fall. She was sitting in her recliner at home and slid out and could not get up. She does not walk at baseline and only transfers using a walker to move to her wheelchair. She reports weakness. She has had nausea and vomiting. She has had diarrhea. She has not been eating well. She denies shortness of breath and cough. She does not n ormally require supplemental oxygen. She denies fevers and chills. She denies dysuria, urgency, and frequency. After her last hospitalization, she was discharged to [facility], but she has been back home since September. Subjective/Events-last exam She is off BiPAP. She is not short of breath. She had some breakfast. She is wondering if she will get to go home tomorrow. Focused Exam Lactate Level 05/01/22 12:56: Lactic Acid Level 0.71 Objective Exam Vital Signs Vital Signs Date Time Temp Pulse Resp B/P (MAP) Pulse Ox O2 Delivery O2 Flow Rate FiO2 05/02/22 11:00 66 12 141/76 (97) 93 Nasal Cannula 2.00 05/02/22 07:50 36.6 05/02/22 04:00 35 Capillary Refill : Less Than 3 Seconds General Appearance: No Apparent Distress, Obese Respiratory: No Respiratory Distress, Decreased Breath Sounds Cardiovascular: Regular Rate, Rhythm, Systolic Murmur Gastrointestinal: Normal Bowel Sounds, Soft Extremity: No Inflammation; Pedal Edema Neurologic/Psychiatric: Alert, Normal Mood/Affect, Motor Weakness Skin: Normal Color, Warm/Dry Results/Procedures Lab Laboratory Tests 05/01/22 12:56 05/02/22 02:53 Patient resulted labs reviewed. Imaging: Reviewed Imaging Report Assessment/Plan Assessment and Plan Assess & Plan/Chief Complaint Acute respiratory failure with hypoxia and hypercapnia COPD exacerbation Pulmonary edema Now off BiPAP TeleICU following Continue IV steroids MAT protocol No evidence of pneumonia, procal negative Chest xray consistent with pulmonary edema Repeat IV Lasix Elevated troponin Likely secondary to respiratory failure No chest pain Troponin stable Cardiology following UTI Urine culture pending Rocephin HTN HLD Hypothyroidism Lymphedema Morbid obesity History of uterine cancer Anxiety Depression Bipolar disorder ADHD Continue home meds as able DVT prophylaxis: Lovenox Critical Care Critically Ill Patient Diagnosis/Problems Diagnosis/Problems (1) Acute on chronic respiratory failure with hypoxia and hypercapnia Status: Acute (2) COPD exacerbation Status: Acute (3) Elevated troponin I level Status: Acute (4) Morbid obesity Status: Acute (5) Lymphedema of lower extremity Status: Acute (6) Urinary tract infection Status: Acute (7) Hyponatremia Status: Acute POP CARLSON MD May 02, 2022 11:44
[2022-05-02] MEDS ORDERED: FUROSEMIDE 40 MG/4 ML INJ (LASIX) IVP ONE (11:45)
[2022-05-02] MEDS ORDERED: ONDA4TAB11 SL (14:55)
[2022-05-02] MEDS ORDERED: OXCA300T18 PO (14:55)
[2022-05-02] MEDS ORDERED: NF-ESOM40C PO (14:55)
[2022-05-02] MEDS ORDERED: CRAN1CAP7 PO (14:55)
[2022-05-02] MEDS ORDERED: OMEP40CA6 PO (14:55)
[2022-05-02] MEDS ORDERED: POLY1DRO OP (14:55)
[2022-05-02] MEDS ORDERED: [UNRECOGNIZED DRUG - OTHER] PO (14:55)
[2022-05-02] MEDS: LACTATED RINGERS 1,000 ML IV SCH (15:05)
[2022-05-02] MEDS: cefTRIAXone 1 GM PRE-MIX 50 ML IV SCH (15:09)
[2022-05-02] MEDS: MICONAZOLE 2% POWDER (DESENEX AF) 90 GM TOP SCH (21:02)
[2022-05-02 22:12] VITALS: BP 121/72
[2022-05-03 02:22] VITALS: BP 151/83
[2022-05-03] MEDS: RT-ALBUTEROL/IPRATROPIUM 3 ML (DUONEB) VIAL INH SCH ×6 (02:22→22:13)
[2022-05-03] MEDS: ENOXAPARIN 40 MG/0.4 ML (LOVENOX) SYR SC SCH ×2 (03:28→15:33)
[2022-05-03] MEDS ORDERED: NS IV 500 ML 500 ML IV PRN (05:45)
[2022-05-03 06:08] LABS: BASOPHILS % (AUTO) 0 % (0-10); EOSINOPHILS % (AUTO) 0 % (0-10); HEMATOCRIT 37 % (35-52); HEMOGLOBIN 11.8 g/dL (11.5-16.0); LYMPHOCYTES # (AUTO) 0.3 10^3/uL (1.0-4.0); LYMPHOCYTES % (AUTO) 5 % (12-44); MEAN CORPUSCULAR HEMOGLOBIN 29 pg (25-34); MEAN CORPUSCULAR HGB CONC 32 g/dL (32-36); MEAN CORPUSCULAR VOLUME 89 fL (80-99); MEAN PLATELET VOLUME 9.9 fL (9.0-12.2); MONOCYTES # (AUTO) 0.2 10^3/uL (0.0-1.0); MONOCYTES % (AUTO) 3 % (0-12); NEUTROPHILS # (AUTO) 6.3 10^3/uL (1.8-7.8); NEUTROPHILS % (AUTO) 92 % (42-75); PLATELET COUNT 222 10^3/uL (130-400); WHITE BLOOD COUNT 6.9 10^3/uL (4.3-11.0)
[2022-05-03] MEDS: methylPREDNISolone 125 MG (Solu-MEDROL) VIAL IV SCH (06:14)
[2022-05-03 06:34] LABS: ALBUMIN 3.5 GM/DL (3.2-4.5); POTASSIUM 3.8 MMOL/L (3.6-5.0)
[2022-05-03 06:38] LABS: BILIRUBIN,TOTAL 0.2 MG/DL (0.1-1.0)
[2022-05-03 06:40] LABS: CREATININE SERUM 0.72 MG/DL (0.60-1.30); PHOSPHORUS 2.6 MG/DL (2.3-4.7)
[2022-05-03 06:43] LABS: MAGNESIUM 1.9 MG/DL (1.6-2.4)
[2022-05-03] MEDS: POTASSIUM CL 10MEQ/50ML IVPB 50 ML IV SCH (06:45)
[2022-05-03] MEDS: KCL 20 MEQ TAB (K-DUR) PO SCH (06:45)
[2022-05-03] MEDS: MAGNESIUM 1 GM/100 ML IVPB 100 ML IV SCH (06:45)
--- NOTE | 2022-05-03 08:07 | Tele-ICU Progress Note ---
Subjective Date Seen by a Provider: May 03, 2022 Time Seen by a Provider: 08:03 Subjective/Events-last exam Now off BiPAP on 3 lpm NC with SpO2 94%, no resp distress, admitted for AECOPD. Remains on IV Rocephin CXR from yesterday I reviewed, shows enlarged heart, no infiltrate Still on IV Medrol, will change to prednisone and taper Sepsis Event Evaluation Height, Weight, BMI Height: 5'6.00" Weight: 254lbs. 0oz. [id number]; 45.93 BMI Method:Stated Focused Exam Lactate Level 05/01/22 12:56: Lactic Acid Level 0.71 Exam Exam Patient acknowledged, consented, and participated in this virtual visit which w as conducted using real time audio/video Vital Signs Date Time Temp Pulse Resp B/P (MAP) Pulse Ox O2 Delivery O2 Flow Rate FiO2 05/03/22 07:14 94 Nasal Cannula 3.00 05/03/22 07:12 65 05/03/22 06:18 Nasal Cannula 2.00 05/03/22 06:00 64 19 136/74 (97) 97 NIV Bilevel 35.00 05/03/22 05:00 64 16 134/70 (91) 96 NIV Bilevel 35.00 05/03/22 04:00 66 18 132/65 (88) 96 NIV Bilevel 35.00 05/03/22 03:53 36.3 05/03/22 03:25 96 NIV Bilevel 35 05/03/22 03:00 64 20 141/74 (96) 96 NIV Bilevel 35.00 05/03/22 02:22 59 18 96 35.00 05/03/22 02:00 64 19 151/83 (108) 97 NIV Bilevel 35.00 05/03/22 01:00 74 05/03/22 01:00 74 16 139/75 (96) 96 NIV Bilevel 35.00 05/03/22 00:00 95 NIV Bilevel 35 05/03/22 00:00 66 20 119/63 (81) 96 NIV Bilevel 35.00 05/02/22 23:55 36.7 05/02/22 23:00 71 17 111/60 (77) 96 NIV Bilevel 35.00 05/02/22 22:12 72 18 96 35.00 05/02/22 22:00 75 17 121/72 (84) 96 NIV Bilevel 35.00 05/02/22 21:13 NIV Bilevel 35.00 05/02/22 21:00 66 13 137/77 (93) 92 Nasal Cannula 2.00 05/02/22 20:00 70 11 142/73 (96) 92 Nasal Cannula 2.00 05/02/22 19:20 92 Nasal Cannula 2.00 05/02/22 19:15 92 Nasal Cannula 3.00 05/02/22 19:00 71 05/02/22 19:00 36.4 75 20 135/70 (91) 95 Nasal Cannula 2.00 05/02/22 18:00 71 17 92/67 (75) 91 Nasal Cannula 2.00 05/02/22 17:00 74 13 138/72 (94) 92 Nasal Cannula 2.00 05/02/22 16:40 93 Nasal Cannula 2.00 05/02/22 16:40 93 Nasal Cannula 2.00 05/02/22 16:00 75 11 129/65 (86) 93 Nasal Cannula 3.00 05/02/22 16:00 36.9 05/02/22 15:09 96 Nasal Cannula 3.00 05/02/22 15:00 75 14 134/58 (83) 91 Nasal Cannula 3.00 05/02/22 14:00 77 15 151/77 (101) 92 Nasal Cannula 3.00 05/02/22 13:00 70 14 157/82 (107) 93 Nasal Cannula 3.00 05/02/22 12:46 94 Nasal Cannula 3.00 05/02/22 12:36 76 05/02/22 12:00 36.9 05/02/22 12:00 70 11 150/79 (102) 94 Nasal Cannula 3.00 05/02/22 11:42 Nasal Cannula 3.00 05/02/22 11:30 97 Nasal Cannula 3.00 05/02/22 11:00 66 12 141/76 (97) 93 Nasal Cannula 2.00 05/02/22 10:00 70 13 159/77 (104) 94 Nasal Cannula 2.00 05/02/22 09:00 68 12 174/94 (120) 92 Nasal Cannula 2.00 05/02/22 08:34 92 Nasal Cannula 2.00 I & O 05/03/22 07:00 Intake Total 2100 ml Output Total 3525 ml Balance -1425 ml Height & Weight Height: 5'6.00" Weight: 254lbs. 0oz. [id number]; 45.93 BMI Method:Stated General Appearance: No Apparent Distress, Obese HEENT: PERRL/EOMI, Other (wearing BiPAP) Neck: Normal Inspection, Supple Respiratory: No Respiratory Distress, Decreased Breath Sounds Cardiovascular: Regular Rate, Rhythm, Systolic Murmur Capillary Refill: Less Than 3 Seconds Gastrointestinal: normal bowel sounds, non tender, soft Extremity: No Inflammation; Pedal Edema, Other (_2 leg edema) Neurologic/Psychiatric: Alert, Normal Mood/Affect, Motor Weakness Skin: Normal Color, Warm/Dry Lymphatic: No Adenopathy Results Lab Laboratory Tests 05/01/22 12:56 05/02/22 02:53 05/03/22 06:06 Assessment/Plan Assessment/Plan AECOPD Change to oral prednisone and taper, looks ready to [facility] Critical Care: Critically Ill Patient Time spent with patient (mins): 30 DOT BOSS MD May 03, 2022 08:07
--- NOTE | 2022-05-03 08:17 | Progress Note - Cardiology ---
Cardiology SOAP Progress Note Objective: I&O/Vital Signs 05/03/22 05/03/22 05/03/22 05/03/22 02:22 03:00 03:25 03:53 Temp 36.3 Pulse 59 64 Resp 18 20 B/P (MAP) 141/74 (96) Pulse Ox 96 96 96 O2 Delivery NIV Bilevel NIV Bilevel O2 Flow Rate 35.00 35.00 FiO2 35 05/03/22 05/03/22 05/03/22 05/03/22 04:00 05:00 06:00 06:18 Pulse 66 64 64 Resp 18 16 19 B/P (MAP) 132/65 (88) 134/70 (91) 136/74 (97) Pulse Ox 96 96 97 O2 Delivery NIV Bilevel NIV Bilevel NIV Bilevel Nasal Cannula O2 Flow Rate 35.00 35.00 35.00 2.00 05/03/22 05/03/22 05/03/22 05/03/22 07:00 07:12 07:14 08:00 Pulse 65 65 Resp 14 B/P (MAP) 148/74 (98) Pulse Ox 93 94 95 O2 Delivery Nasal Cannula Nasal Cannula Nasal Cannula O2 Flow Rate 2.00 3.00 2.00 05/03/22 05/03/22 05/03/22 05/03/22 08:00 08:00 09:00 10:00 Temp 36.9 Pulse 65 67 66 Resp 22 22 24 B/P (MAP) 147/76 (99) 130/72 (91) 124/70 (88) Pulse Ox 95 93 93 O2 Delivery Nasal Cannula Nasal Cannula Nasal Cannula O2 Flow Rate 2.00 2.00 2.00 05/03/22 05/03/22 05/03/22 11:00 12:00 12:00 Pulse 69 66 Resp 17 19 B/P (MAP) 164/80 (108) 136/68 (90) Pulse Ox 93 95 100 O2 Delivery Nasal Cannula Nasal Cannula Nasal Cannula O2 Flow Rate 2.00 3.00 2.00 05/03/22 00:00 Intake Total 1550 ml Output Total 2875 ml Balance -1325 ml Weight (Pounds): 254 Weight (Ounces): 0 Weight (Calculated Kilograms): [id number] Constitutional: AAO x 3 Respiratory: No accessory muscle use, No respiratory distress; chest expansion is symmetric Cardiovascular: regular rate-rhythm Gastrointestional: No tender; soft, round, audible bowel sounds Neurologic/Psychiatric: grossly intact (moves all extremities) Skin: No rash on exposed areas, No ulcerations on exposed areas Results/Procedures: Labs Laboratory Tests 05/03/22 06:06: White Blood Count 6.9, Red Blood Count 4.14, Hemoglobin 11.8, Hematocrit 37, Mean Corpuscular Volume 89, Mean Corpuscular Hemoglobin 29, Mean Corpuscular Hemoglobin Concent 32, Red Cell Distribution Width 14.1, Platelet Count 222, Mean Platelet Volume 9.9, Immature Granulocyte % (Auto) 0, Neutrophils (%) (Auto) 92H, Lymphocytes (%) (Auto) 5L, Monocytes (%) (Auto) 3, Eosinophils (%) (Auto) 0, Basophils (%) (Auto) 0, Neutrophils # (Auto) 6.3, Lymphocytes # (Auto) 0.3L, Monocytes # (Auto) 0.2, Eosinophils # (Auto) 0.0, Basophils # (Auto) 0.0, Immature Granulocyte # (Auto) 0.0, Sodium Level 129L, Potassium Level 3.8, Chloride Level 88L, Carbon Dioxide Level 34H, Anion Gap 7, Blood Urea Nitrogen 13, Creatinine 0.72, Estimat Glomerular Filtration Rate 91, BUN/Creatinine Ratio 18, Glucose Level 135H, Calcium Level 9.0, Corrected Calcium 9.4, Phosphorus Level 2.6, Magnesium Level 1.9, Total Bilirubin 0.2, Aspartate Amino Transf (AST/SGOT) 22, Alanine Aminotransferase (ALT/SGPT) 25, Alkaline Phosphatase 54, Total Protein 6.0L, Albumin 3.5 Microbiology 05/01/22 Blood Culture - Preliminary, Resulted No growth 05/01/22 MRSA Screen - Final, Complete 05/01/22 Urine Culture - Preliminary, Resulted Enterococcus faecalis A/P: Assessment: Acute respiratory failure with acute hypoxemia - likely multi-factorial - probable obesity hypoventilation syndrome, acute exacerbation of COPD and acute diastolic CHF Type 2 NC - secondary to acute hypoxia Hyponatremia - undetermined etiology UTI - management per medical services H/o Palpitations: - none currently - Intolerance to beta-carlos because of significant bradycardia on these agents - Echo of 09/16/15 showed LVEF 60%, and mild regurg of the mitral and triscuspid and aortic valves. PASP was 30 mmHg - MPI of 09/26/18 shows a small amt of anterolat ischemia, LVEF 58% - Cardiac cath of 05-22-2019: No angiographically significant coronary artery disease. Normal global left ventricular systolic function with ejection fraction of approximately 60%. Elevated left ventricular end-diastolic pressure Obesity with BMI approx 45 - Sleep studies with Dr Hudson on 11/29/13 did not show obstructive sleep apnea; only mod primary snoring was seen Daytime somnolence and fatigue, currently stable Chronic leg swelling - probably due mild venous insuff Bipolar disorder, being managed by her psychiatrist Severe DJD, especially of the knees, leading to wheechair-bound state, managed by pcp Carotid dz: - Mild bilat carotid arterial disease per carotid u/s of 10/05/18 DEON GONZALES May 03, 2022 08:17
[2022-05-03] MEDS: GABAPENTIN 100 MG (NEURONTIN) CAP PO SCH ×3 (08:27→21:06)
[2022-05-03] MEDS: OXcarbazepine (TRILEPTAL) 300 MG TAB PO SCH ×2 (08:27→21:06)
[2022-05-03] MEDS: amLODIPine 10 MG (NORVASC) TAB PO SCH (08:27)
[2022-05-03] MEDS: PANTOPRAZOLE 20 MG TABLET (PROTONIX) PO SCH (08:27)
[2022-05-03] MEDS: MICONAZOLE 2% POWDER (DESENEX AF) 90 GM TOP SCH ×2 (08:27→21:05)
[2022-05-03] MEDS: ASPIRIN 81 MG CHEW (CHILDREN'S ASA) PO SCH (08:27)
[2022-05-03] MEDS: OXYBUTYNIN (DITROPAN) 5 MG TAB PO SCH ×2 (08:27→21:06)
[2022-05-03] MEDS: MUPIROCIN 2% OINT 22 GM (BACTROBAN) TUBE NSEACH SCH ×2 (08:33→21:05)
--- NOTE | 2022-05-03 08:33 | Progress Note - Hospitalist ---
Subjective HPI/CC On Admission Date Seen by Provider: May 03, 2022 Time Seen by Provider: 08:25 Terrie Steele is a 66 year old female with PMH HTN, HLD, hypothyroidism, lymphedema, morbid obesity, uterine cancer s/p hysterectomy, anxiety, depression, bipolar disorder, ADHD, who presented after a fall. She was sitting in her recliner at home and slid out and could not get up. She does not walk at baseline and only transfers using a walker to move to her wheelchair. She reports weakness. She has had nausea and vomiting. She has had diarrhea. She has not been eating well. She denies shortness of breath and cough. She does not n ormally require supplemental oxygen. She denies fevers and chills. She denies dysuria, urgency, and frequency. After her last hospitalization, she was discharged to [facility], but she has been back home since September. Subjective/Events-last exam Pt reports doing well. Breathing much better. Still on 3lpm. Does not wear oxygen at home or use CPAP. Was on BiPAP overnight. Focused Exam Lactate Level 05/01/22 12:56: Lactic Acid Level 0.71 Objective Exam Vital Signs Vital Signs Date Time Temp Pulse Resp B/P (MAP) Pulse Ox O2 Delivery O2 Flow Rate FiO2 05/03/22 08:00 36.9 05/03/22 08:00 65 22 147/76 (99) 95 Nasal Cannula 2.00 05/03/22 03:25 35 Capillary Refill : Less Than 3 Seconds General Appearance: No Apparent Distress, Chronically ill, Obese Cardiovascular: Regular Rate, Rhythm, No Murmur Neurologic/Psychiatric: Alert, Oriented x3 Results/Procedures Lab Laboratory Tests 05/03/22 06:06 Patient resulted labs reviewed. Imaging: Reviewed Imaging Report Assessment/Plan Assessment and Plan Assess & Plan/Chief Complaint Acute respiratory failure with hypoxia and hypercapnia COPD exacerbation Pulmonary edema ?obesity hypoventilation syndrome On BiPAP overnight TeleICU following Continue steroids, switch to PO MAT protocol Chest xray consistent with pulmonary edema Cont Lasix DC abx Will check ABG in AM to assess for need for NIPPV at home if hypercapnic Home oxygen study will be needed as well Elevated troponin Likely secondary to respiratory failure No chest pain Troponin stable Cardiology following UTI- uncomplicated Urine culture pending Rocephin to complete 3 day course today HTN HLD Hypothyroidism Lymphedema Morbid obesity History of uterine cancer Anxiety Depression Bipolar disorder ADHD Continue home meds as able DVT prophylaxis: Lovenox Critical Care Critically Ill Patient DENNIS KENNEDY MD May 03, 2022 08:33
--- NOTE | 2022-05-03 11:01 | ST Dysphagia Evaluation ---
Speech Evaluation-General Medical Diagnosis Acute Respiratory Failure Onset Date: May 01, 2022 Therapy Diagnosis Therapy Diagnosis: Intact Oropharyngeal Swallow Function Precautions Precautions: Fall, Pressure Ulcer, Aspiration Precautions/Isolations: Aspiration, Fall Prevention, Pressure Ulcer Referral Referring Physician: Dr. Mendez Reason for Referral: Evaluation/Treatment Medical History Current History The patient is a 66 year old female with a past medical history significant for HTN, HLD, hypothyroidism, lymphedema, morbid obesity, uterine cancer s/p hysterectomy, anxiety, depression, bipolar disorder, and ADHD, who presented after a fall. CXR: 05/02/22: 1. Scattered patchy opacities, suggestive of edema. Components of infection could also be present. Reviewed History: Yes Speech PLF/Current-Dysphagia Prior Level of Function The patient denied consistent difficulties or concerns with her oropharyngeal swallow function. Per patient, she experienced one episode the day prior where she felt it was difficult to swallow. The patient stated she alternated solid and liquid consistencies throughout the day to help the solid consistencies clear the pharyngeal region. The patient denied s/s of suspected aspiration with any consistency she consumed. The patient stated she is no longer experiencing the difficulty. Subjective The patient was seated upright in her bed, awake and alert upon entrance to her room by the clinician. The patient greeted the clinician appropriately and was agreeable to participation in the clinical bedside swallowing evaluation. Prior to the evaluation, the ST discussed the patient with the patient's RN. The patient's RN stated the patient has displayed tolerance with her current diet co nsistency. Cognitive Status Patient Orientation: Person, Place, Time, Situation Oral Motor Skills Dentition: Natural Current Food Consistancy: Regular, Thin Liquids Ability to Follow Directions: Excellent Oral Expression Ability: No Impairment Voice Voice Phonatory-Based Quality: Normal Voice Pitch: Normal Voice Loudness: Normal Face Facial Symmetry: Symmetrical Oral-Facial Assessment Oral-Facial Dentition: Normal Labial Seal Description: Normal Smile: Normal Puff Cheeks: Normal Lingual Protrusion: Normal Lingual ROM: Normal Lingual Strength: Normal Volitional Dry Swallow: Yes Voluntary Cough: Yes Can Clear Throat Volitionally: Yes Productive Cough: Yes Productive Throat Clear: Yes Dysphagia Evaluation Consistencies Presented: Regular, Thin Liquid, Pureed The patient does not display any oral deficits to the swallowing function. The patient does not display any pharyngeal deficits to the swallowing function. The patient consumes thin liquids via straw (small single and large consecutive drinks), puree, and solid consistencies. Overt s/s of suspected aspiration were not demonstrated with any consistency tested. Dietary Recommendations: Regular Liquid Recommendations: Thin Recommendations: - Regular consistency diet with thin liquids, as tolerated. - Fully upright and alert for P.O. intake. - Small, single bites and sips. - Cease P.O. intake during periods of respiratory fatigue. - Alternate solid and liquid consistencies on a 1:1 ratio, as necessary. - Monitor for s/s of suspected aspiration with P.O. intake. If demonstrate, contact speech pathology. Dysphagia Evaluation Summary The patient demonstrates an intact oropharyngeal swallow function. Overt s/s of suspected aspiration were not demonstrated with any consistency consumed. Speech-Plan Treatment Plan Speech Therapy Treatment Plan: Discontinue ST Treatment Duration: May 03, 2022 Frequency: 1 time per week Estimated Hrs Per Day: .25 hour per day Rehab Potential: Good Safety Risks/Education Teaching Recipient: Patient Teaching Methods: Discussion Response to Teaching: Verbalize Understanding Education Topics Provided: Results, Recommendations, Plan of Care Time Speech Therapy Time In: 10:30 Speech Therapy Time Out: 10:50 Total Billed Time: 20 Billed Treatment Time 1, JEFFRY MILLS [facility] ST May 03, 2022 11:01
--- NOTE | 2022-05-03 11:54 | Physical Therapy Evaluation ---
PT Evaluation-General Medical Diagnosis Admission Date May 01, 2022 at 14:00 Medical Diagnosis: Acute Respiratory Failure Onset Date: May 01, 2022 Therapy Diagnosis Therapy Diagnosis: generalized weakness/debility Height/Weight Height (Feet): 5 Height (Inches): 6.00 Weight (Pounds): 254 Weight (Ounces): 0 Precautions Precautions/Isolations: Aspiration, Fall Prevention, Pressure Ulcer Referral Physician: Andrea Reason for Referral: Evaluation/Treatment Medical History Pertinent Medical History: COPD History of Falls (past yr): Yes Prior Surgery (last 100 days): No Additional Medical History morbid obesity Current History EMS secondary to sliding out of chair Reviewed History: Yes Social History Home: Apartment Current Living Status: caregivers Entry Into Home: Ramp Prior Prior Level of Function SCALE: Activities may be completed with or without assistive devices. 6-Jmrjscvhnp-luctzzs completes the activity by him/herself with no assistance from a helper. 5-Set-up or Clean-up Assistance-helper sets up or cleans up; patient completes activity. [place] assists only prior to or following the activity. 4-Supervision or Touching Assistance-helper provides verbal cues and/or touching/steadying and/or contact guard assistance as patient completes activity. Assistance may be provided throughout the activity or intermittently. 3-Partial/Moderate Assistance-helper does LESS THAN HALF the effort. [place] lifts, holds or supports trunk or limbs, but provides less than half the effort. 2-Substantial/Maximal Assistance-helper does MORE THAN HALF the effort. [place] lifts or holds trunk or limbs and provides more than half the effort. 6-Vsarmokgf-iwyedo does ALL the effort. Patient does none of the effort to complete the activity. Or, the assistance of 2 or more helpers is required for the patient to complete the activity. If activity was not attempted, code reason: 7-Patient Refused. 9-Not Applicable-not attempted and the patient did not perform the activity before the current illness, exacerbation or injury. 10-Not Attempted due to Environmental Limitations-(lack of equipment, weather restraints, etc.). 88-Not Attempted due to Medical Conditions or Safety Concerns. Bed Mobility: 6 Transfers (B,C,W/C): 6 Gait: 9 Stairs: 9 Wheelchair Mobility: 6 Indoor Mobility (Ambulation): Not [place] Stairs: Not [place] Prior Devices Use: Manual wheelchair, Walker (for transfers) non ambulatory PLOF PT Evaluation-Current Subjective Patient agrees to PT. Objective Patient Orientation: Person, Time, Situation Attachments: Oxygen, Coulter Catheter, IV ROM/Strength ROM Lower Extremities bilateral LE WFL Strength Lower Extremities 3-/5 grossly bilateral LE all planes Integumentary/Posture Integumentary refer to nursing notes Bowel Incontinence: No Bladder Incontinence: Coulter Cath Posture trunk flexed posture Neuromuscular (Tone, Coordination, Reflexes) grossly intact Sensory Vision: Wears Glasses Hearing: Functional Transfers Lying to Sitting/Side of Bed(Q: 3 Sit to Stand (QC): 3 Chair/Vva-ai-Arayl Xfer(QC): 3 Gait Does the Patient Walk?: No and Walking Goal NOT indicated Walk 10 feet (QC): 9 Walk 50 ft with 2 Turns(QC): 9 Walk 150 ft (QC): 9 Balance Sitting Static: Normal Sitting Dynamic: Normal Standing Static: Fair Standing Dynamic: Fair Assessment/Needs 66 y.o. female, will be seen short term by skilled PT to address functional strength and mobility to improve current LOF. Patient is non ambulatory PLOF and propels w/c independently per her report. She states she has caregivers during the week (didn't report hours/days). Rehab Potential: Fair PT [employer] Equipment Repairer Goals [employer] And Equipment Repairer Goals PT Snf Goals Time Frame: May 15, 2022 Roll Left & Right (QC): 6 Sit to Lying (QC): 6 Lying-Sitting on Side/Bed(QC): 6 Sit to Stand (QC): 6 Chair/Teu-qm-Zvavs Xfer(QC): 6 PT Plan Problem List Problem List: Activity Tolerance, Functional Strength, Safety, Balance, Gait, Transfer, Bed Mobility Treatment/Plan Treatment Plan: Continue Plan of Care Treatment Plan: Bed Mobility, Education, Functional Activity Marjorie, Functional Strength, Safety, Therapeutic Exercise, Transfers Treatment Duration: May 15, 2022 Frequency: 6 times per week Estimated Hrs Per Day: .25 hour per day Patient and/or Family Agrees t: Yes Time/GCodes Time In: 1115 Time Out: 1130 Total Billed Treatment Time: 15 Total Billed Treatment 1 visit EVModC 15 min ESME BURNETTE PT May 03, 2022 11:54
[2022-05-03] MEDS ORDERED: CALC-1037 PO (11:59)
[2022-05-03] MEDS ORDERED: ONDA-105 PO (11:59)
[2022-05-03] MEDS ORDERED: TERB15CR6 TOP (11:59)
[2022-05-03] MEDS ORDERED: PUMP300C PO (11:59)
[2022-05-03] MEDS ORDERED: PROBIOTIC PO (11:59)
[2022-05-03] MEDS ORDERED: AMLO-251 PO (11:59)
[2022-05-03] MEDS ORDERED: MV-M1CAP24 PO (11:59)
[2022-05-03] MEDS ORDERED: ALPR0.5T7 PO (11:59)
[2022-05-03] MEDS ORDERED: PROP10DR2 OU (11:59)
[2022-05-03] MEDS ORDERED: ESOM40CA52 PO (11:59)
[2022-05-03] MEDS ORDERED: LATA5DRO OU (11:59)
[2022-05-03] MEDS ORDERED: DIPH25CA79 PO (11:59)
[2022-05-03] MEDS ORDERED: VITC PO (11:59)
[2022-05-03] MEDS ORDERED: CITA40TA13 PO (11:59)
[2022-05-03] MEDS ORDERED: BUDE10.7 INH (11:59)
[2022-05-03] MEDS ORDERED: LAMO200T5 PO (11:59)
[2022-05-03] MEDS ORDERED: OXCA300T18 PO (11:59)
[2022-05-03] MEDS ORDERED: DORZ10DR8 OU (11:59)
[2022-05-03] MEDS ORDERED: NAPR-915 PO (11:59)
[2022-05-03] MEDS ORDERED: ASEN10TA9 SL (11:59)
[2022-05-03] MEDS ORDERED: ALBU18HF2 INH (11:59)
[2022-05-03] MEDS ORDERED: METR60GE4 TOP (11:59)
[2022-05-03] MEDS ORDERED: OXYB5TAB13 PO (11:59)
[2022-05-03] MEDS ORDERED: CYCL1DRO OU (11:59)
[2022-05-03] MEDS ORDERED: ASPI-1238 PO (11:59)
[2022-05-03] MEDS ORDERED: T-3 PO (11:59)
[2022-05-03] MEDS ORDERED: [UNRECOGNIZED DRUG - OTHER] PO (11:59)
--- NOTE | 2022-05-03 12:35 | Progress Note - Cardiology ---
Cardiology SOAP Progress Note Subjective: No cp Shortness of breath better Notes some worsening of chronic, fine tremor since admission No focal weakness Some gen weakness No n/v/d Objective: I&O/Vital Signs 05/03/22 05/03/22 05/03/22 05/03/22 01:00 01:00 02:00 02:22 Pulse 74 74 64 59 Resp 16 19 18 B/P (MAP) 139/75 (96) 151/83 (108) Pulse Ox 96 97 96 O2 Delivery NIV Bilevel NIV Bilevel O2 Flow Rate 35.00 35.00 35.00 05/03/22 05/03/22 05/03/22 05/03/22 03:00 03:25 03:53 04:00 Temp 36.3 Pulse 64 66 Resp 20 18 B/P (MAP) 141/74 (96) 132/65 (88) Pulse Ox 96 96 96 O2 Delivery NIV Bilevel NIV Bilevel NIV Bilevel O2 Flow Rate 35.00 35.00 FiO2 35 05/03/22 05/03/22 05/03/22 05/03/22 05:00 06:00 06:18 07:00 Pulse 64 64 65 Resp 16 19 14 B/P (MAP) 134/70 (91) 136/74 (97) 148/74 (98) Pulse Ox 96 97 93 O2 Delivery NIV Bilevel NIV Bilevel Nasal Cannula Nasal Cannula O2 Flow Rate 35.00 35.00 2.00 2.00 05/03/22 05/03/22 05/03/22 05/03/22 07:12 07:14 08:00 08:00 Pulse 65 65 Resp 22 B/P (MAP) 147/76 (99) Pulse Ox 94 95 95 O2 Delivery Nasal Cannula Nasal Cannula Nasal Cannula O2 Flow Rate 3.00 2.00 2.00 05/03/22 05/03/22 05/03/22 05/03/22 08:00 09:00 10:00 11:00 Temp 36.9 Pulse 67 66 69 Resp 22 24 17 B/P (MAP) 130/72 (91) 124/70 (88) 164/80 (108) Pulse Ox 93 93 93 O2 Delivery Nasal Cannula Nasal Cannula Nasal Cannula O2 Flow Rate 2.00 2.00 2.00 05/03/22 00:00 Intake Total 1550 ml Output Total 2875 ml Balance -1325 ml Weight (Pounds): 254 Weight (Ounces): 0 Weight (Calculated Kilograms): 115.285900 Constitutional: AAO x 3 Respiratory: No accessory muscle use, No respiratory distress; chest expansion is symmetric Cardiovascular: regular rate-rhythm Gastrointestional: No tender; soft, round, audible bowel sounds Neurologic/Psychiatric: other (moves all limbs equally, mild tremor of the hand (fine, resting)) Skin: No rash on exposed areas, No ulcerations on exposed areas Results/Procedures: Labs Laboratory Tests 05/03/22 06:06: White Blood Count 6.9, Red Blood Count 4.14, Hemoglobin 11.8, Hematocrit 37, Mean Corpuscular Volume 89, Mean Corpuscular Hemoglobin 29, Mean Corpuscular Hemoglobin Concent 32, Red Cell Distribution Width 14.1, Platelet Count 222, Mean Platelet Volume 9.9, Immature Granulocyte % (Auto) 0, Neutrophils (%) (Auto) 92H, Lymphocytes (%) (Auto) 5L, Monocytes (%) (Auto) 3, Eosinophils (%) (Auto) 0, Basophils (%) (Auto) 0, Neutrophils # (Auto) 6.3, Lymphocytes # (Auto) 0.3L, Monocytes # (Auto) 0.2, Eosinophils # (Auto) 0.0, Basophils # (Auto) 0.0, Immature Granulocyte # (Auto) 0.0, Sodium Level 129L, Potassium Level 3.8, Chloride Level 88L, Carbon Dioxide Level 34H, Anion Gap 7, Blood Urea Nitrogen 13, Creatinine 0.72, Estimat Glomerular Filtration Rate 91, BUN/Creatinine Ratio 18, Glucose Level 135H, Calcium Level 9.0, Corrected Calcium 9.4, Phosphorus Level 2.6, Magnesium Level 1.9, Total Bilirubin 0.2, Aspartate Amino Transf (AST/SGOT) 22, Alanine Aminotransferase (ALT/SGPT) 25, Alkaline Phosphatase 54, Total Protein 6.0L, Albumin 3.5 Microbiology 05/01/22 Blood Culture - Preliminary, Resulted No growth 05/01/22 MRSA Screen - Final, Complete 05/01/22 Urine Culture - Preliminary, Resulted Enterococcus faecalis Laboratory Tests 05/01/22 12:56 05/02/22 02:53 05/03/22 06:06 A/P: Assessment: Acute respiratory failure with acute hypoxemia - likely multi-factorial - probable obesity-hypoventilation syndrome, acute exacerbation of COPD and acute diastolic CHF Type 2 CT - secondary to acute hypoxia Hyponatremia - undetermined etiology UTI - management per medical services H/o Palpitations: - none currently - Intolerance to beta-carlos because of significant bradycardia on these agents - Echo of 09/16/15 showed LVEF 60%, and mild regurg of the mitral and triscuspid and aortic valves. PASP was 30 mmHg - MPI of 09/26/18 shows a small amt of anterolat ischemia, LVEF 58% - Cardiac cath of 05-22-2019: No angiographically significant coronary artery disease. Normal global left ventricular systolic function with ejection fraction of approximately 60%. Elevated left ventricular end-diastolic pressure Obesity with BMI approx 45 - Sleep studies with Dr Hudson on 11/29/13 did not show obstructive sleep apnea; only mod primary snoring was seen Daytime somnolence and fatigue, currently stable Chronic leg swelling - probably due mild venous insuff Bipolar disorder, being managed by her psychiatrist Severe DJD, especially of the knees, leading to wheechair-bound state, managed by pcp Carotid dz: - Mild bilat carotid arterial disease per carotid u/s of 10/05/18 Plan: * I interviewed and examined the patient and reviewed her records * Continue current regimen * Monitor labs * CV-related questions answered ONELIA PANDA MD [facility] CCDS May 03, 2022 12:34
[2022-05-03 15:30] VITALS: BP 150/70
[2022-05-03] MEDS ORDERED: cefTRIAXone 1 GM PRE-MIX 50 ML IV ONE (15:30)
[2022-05-03] MEDS: FUROSEMIDE 40 MG (LASIX) TAB PO SCH (16:40)
[2022-05-03 19:34] VITALS: BP 153/72
[2022-05-03] MEDS: ACETAMINOPHEN 325 MG TABLET PO PRN (21:05)
[2022-05-03] MEDS: ALPRAZolam 0.5 MG (XANAX) TAB PO PRN (21:06)
[2022-05-04 00:40] VITALS: BP 143/76
[2022-05-04] MEDS: RT-ALBUTEROL/IPRATROPIUM 3 ML (DUONEB) VIAL INH SCH ×3 (02:28→10:52)
[2022-05-04] MEDS: ENOXAPARIN 40 MG/0.4 ML (LOVENOX) SYR SC SCH (03:48)
[2022-05-04 04:35] VITALS: BP 151/75
[2022-05-04 05:13] LABS: ABG BASE EXCESS 12.6 MMOL/L (-2.5-2.5); ABG OXYGEN SATURATION 94 % (94-100); ABG PCO2 61 MMHG (35-45); ABG PH 7.41 (7.37-7.43); ABG PO2 61 MMHG (79-93); ABG TCO2 39.8 MMOL/L (21.0-31.0)
[2022-05-04 05:16] LABS: ALLENS TEST YES-POS; INSPIRED O2 3L; PATIENT TEMP 36.8; VENTILATOR NO
[2022-05-04 05:36] LABS: BASOPHILS % (AUTO) 0 % (0-10); EOSINOPHILS % (AUTO) 0 % (0-10); HEMATOCRIT 37 % (35-52); HEMOGLOBIN 11.7 g/dL (11.5-16.0); LYMPHOCYTES # (AUTO) 0.7 10^3/uL (1.0-4.0); LYMPHOCYTES % (AUTO) 9 % (12-44); MEAN CORPUSCULAR HEMOGLOBIN 29 pg (25-34); MEAN CORPUSCULAR HGB CONC 32 g/dL (32-36); MEAN CORPUSCULAR VOLUME 89 fL (80-99); MEAN PLATELET VOLUME 9.6 fL (9.0-12.2); MONOCYTES # (AUTO) 0.8 10^3/uL (0.0-1.0); MONOCYTES % (AUTO) 10 % (0-12); NEUTROPHILS # (AUTO) 6.2 10^3/uL (1.8-7.8); NEUTROPHILS % (AUTO) 80 % (42-75); PLATELET COUNT 235 10^3/uL (130-400); WHITE BLOOD COUNT 7.7 10^3/uL (4.3-11.0)
[2022-05-04 06:01] LABS: ALBUMIN 3.3 GM/DL (3.2-4.5); BILIRUBIN,TOTAL 0.3 MG/DL (0.1-1.0); CALCIUM 8.7 MG/DL (8.5-10.1); CREATININE SERUM 0.68 MG/DL (0.60-1.30); POTASSIUM 3.5 MMOL/L (3.6-5.0); TOTAL PROTEIN 5.6 GM/DL (6.4-8.2)
[2022-05-04] MEDS: MAGNESIUM 1 GM/100 ML IVPB 100 ML IV SCH (06:52)
[2022-05-04] MEDS: POTASSIUM CL 10MEQ/50ML IVPB 50 ML IV SCH (06:52)
[2022-05-04] MEDS: FUROSEMIDE 40 MG (LASIX) TAB PO SCH (06:54)
[2022-05-04] MEDS ORDERED: predniSONE 20 MG TAB PO SCH (07:00)
[2022-05-04] MEDS: KCL 20 MEQ TAB (K-DUR) PO SCH (07:52)
[2022-05-04] MEDS ORDERED: KCL 20 MEQ TAB (K-DUR) PO NR (08:00)
[2022-05-04 08:05] VITALS: BP 160/74
--- NOTE | 2022-05-04 08:14 | Progress Note - Cardiology ---
Cardiology SOAP Progress Note Objective: I&O/Vital Signs 05/04/22 05/04/22 05/04/22 05/04/22 02:28 04:35 07:03 08:00 Temp 36.9 Pulse 72 63 Resp 20 B/P (MAP) 151/75 (100) Pulse Ox 94 92 95 O2 Delivery Nasal Cannula Nasal Cannula Nasal Cannula O2 Flow Rate 2.00 2.00 3.00 05/04/22 05/04/22 05/04/22 05/04/22 08:05 09:15 09:15 09:50 Temp 36.5 Pulse 62 61 Resp 18 B/P (MAP) 160/74 (102) 140/67 (91) Pulse Ox 95 97 95 O2 Delivery Nasal Cannula Room Air Nasal Cannula O2 Flow Rate 2.00 0.00 2.00 05/04/22 05/04/22 10:52 11:29 Temp 36.6 Pulse 57 Resp 18 B/P (MAP) 148/68 (94) Pulse Ox 92 90 O2 Delivery Room Air Room Air O2 Flow Rate 0.00 05/04/22 00:00 Intake Total 660 ml Output Total 575 ml Balance 85 ml Weight (Pounds): 254 Weight (Ounces): 0 Weight (Calculated Kilograms): 115.201803 Constitutional: AAO x 3 Respiratory: No accessory muscle use, No respiratory distress; chest expansion is symmetric, lungs clear to auscultation Cardiovascular: regular rate-rhythm Gastrointestional: No tender; soft, round, audible bowel sounds Extremities: no lower extremity edema bilateral Neurologic/Psychiatric: other (moves all limbs equally, mild tremor of the hand (fine, resting)) Skin: No rash on exposed areas, No ulcerations on exposed areas Results/Procedures: Labs Laboratory Tests 05/04/22 05:03: Blood Gas Puncture Site RR, Blood Gas Patient Temperature 36.8, Arterial Blood pH 7.41, Arterial Blood Partial Pressure CO2 61H, Arterial Blood Partial Pressure O2 61L, Arterial Blood HCO3 38H, Arterial Blood Total CO2 39.8H, Arterial Blood Oxygen Saturation 94, Arterial Blood Base Excess 12.6H, Skyler Test YES-POS, Blood Gas Ventilator Setting NO, Blood Gas Inspired Oxygen 3L 05/04/22 05:15: White Blood Count 7.7, Red Blood Count 4.10, Hemoglobin 11.7, Hematocrit 37, Mean Corpuscular Volume 89, Mean Corpuscular Hemoglobin 29, Mean Corpuscular Hemoglobin Concent 32, Red Cell Distribution Width 14.1, Platelet Count 235, Mean Platelet Volume 9.6, Immature Granulocyte % (Auto) 0, Neutrophils (%) (Auto) 80H, Lymphocytes (%) (Auto) 9L, Monocytes (%) (Auto) 10, Eosinophils (%) (Auto) 0, Basophils (%) (Auto) 0, Neutrophils # (Auto) 6.2, Lymphocytes # (Auto) 0.7L, Monocytes # (Auto) 0.8, Eosinophils # (Auto) 0.0, Basophils # (Auto) 0.0, Immature Granulocyte # (Auto) 0.0, Sodium Level 129L, Potassium Level 3.5L, Chloride Level 90L, Carbon Dioxide Level 31, Anion Gap 8, Blood Urea Nitrogen 16, Creatinine 0.68, Estimat Glomerular Filtration Rate 95, BUN/Creatinine Ratio 24, Glucose Level 102, Calcium Level 8.7, Corrected Calcium 9.3, Total Bilirubin 0.3, Aspartate Amino Transf (AST/SGOT) 18, Alanine Aminotransferase (ALT/SGPT) 24, Alkaline Phosphatase 46, Total Protein 5.6L, Albumin 3.3 Microbiology 05/01/22 Blood Culture - Preliminary, Resulted No growth 05/01/22 MRSA Screen - Final, Complete 05/01/22 Urine Culture - Final, Complete Enterococcus faecalis A/P: Assessment: Acute respiratory failure with acute hypoxemia - likely multi-factorial - probable obesity-hypoventilation syndrome, acute exacerbation of COPD and acute diastolic CHF Type 2 NE - secondary to acute hypoxia Hyponatremia - undetermined etiology UTI - management per medical services H/o Palpitations: - none currently - Intolerance to beta-carlos because of significant bradycardia on these agents - Echo of 09/16/15 showed LVEF 60%, and mild regurg of the mitral and triscuspid and aortic valves. PASP was 30 mmHg - MPI of 09/26/18 shows a small amt of anterolat ischemia, LVEF 58% - Cardiac cath of 05-22-2019: No angiographically significant coronary artery disease. Normal global left ventricular systolic function with ejection fraction of approximately 60%. Elevated left ventricular end-diastolic pressure Obesity with BMI approx 45 - Sleep studies with Dr Hudson on 11/29/13 did not show obstructive sleep apnea; only mod primary snoring was seen Daytime somnolence and fatigue, currently stable Chronic leg swelling - probably due mild venous insuff Bipolar disorder, being managed by her psychiatrist Severe DJD, especially of the knees, leading to wheechair-bound state, managed by pcp Carotid dz: - Mild bilat carotid arterial disease per carotid u/s of 10/05/18 Plan: * Continue current regimen * Monitor labs * Replace electrolytes DEON GONZALES May 04, 2022 08:14
[2022-05-04] MEDS: ASPIRIN 81 MG CHEW (CHILDREN'S ASA) PO SCH (08:34)
[2022-05-04] MEDS: OXcarbazepine (TRILEPTAL) 300 MG TAB PO SCH (08:34)
[2022-05-04] MEDS: OXYBUTYNIN (DITROPAN) 5 MG TAB PO SCH (08:34)
[2022-05-04] MEDS: PANTOPRAZOLE 20 MG TABLET (PROTONIX) PO SCH (08:34)
[2022-05-04] MEDS: GABAPENTIN 100 MG (NEURONTIN) CAP PO SCH ×2 (08:35→12:48)
[2022-05-04] MEDS: MICONAZOLE 2% POWDER (DESENEX AF) 90 GM TOP SCH (08:35)
[2022-05-04] MEDS: amLODIPine 10 MG (NORVASC) TAB PO SCH (08:35)
[2022-05-04] MEDS: MUPIROCIN 2% OINT 22 GM (BACTROBAN) TUBE NSEACH SCH (08:36)
--- NOTE | 2022-05-04 08:39 | Discharge Summary ---
Diagnosis/Chief Complaint Date of Admission May 01, 2022 at 14:00 Date of Discharge Admission Diagnosis Acute respiratory failure with hypoxia and hypercapnia Primary Care Marcel Toussaint MD Discharge Diagnosis (1) Acute on chronic respiratory failure with hypoxia and hypercapnia Status: Acute (2) COPD exacerbation Status: Acute (3) Elevated troponin I level Status: Acute (4) Morbid obesity Status: Acute (5) Lymphedema of lower extremity Status: Acute (6) Urinary tract infection Status: Acute (7) Hyponatremia Status: Acute Discharge Summary Discharge Physical Exam Allergies: Uncoded Allergies: MERCURY (Allergy, Mild, 08/24/10) Vitals & I&Os Vital Signs Date Time Temp Pulse Resp B/P (MAP) Pulse Ox O2 Delivery O2 Flow Rate FiO2 05/04/22 08:05 36.5 62 18 160/74 (102) 95 Nasal Cannula 2.00 05/03/22 03:25 35 Hospital Course Labs (last 24 hrs) Laboratory Tests 05/04/22 05:03: Blood Gas Puncture Site RR, Blood Gas Patient Temperature 36.8, Arterial Blood pH 7.41, Arterial Blood Partial Pressure CO2 61H, Arterial Blood Partial Pressure O2 61L, Arterial Blood HCO3 38H, Arterial Blood Total CO2 39.8H, Arterial Blood Oxygen Saturation 94, Arterial Blood Base Excess 12.6H, Skyler Test YES-POS, Blood Gas Ventilator Setting NO, Blood Gas Inspired Oxygen 3L 05/04/22 05:15: White Blood Count 7.7, Red Blood Count 4.10, Hemoglobin 11.7, Hematocrit 37, Mean Corpuscular Volume 89, Mean Corpuscular Hemoglobin 29, Mean Corpuscular Hemoglobin Concent 32, Red Cell Distribution Width 14.1, Platelet Count 235, Mean Platelet Volume 9.6, Immature Granulocyte % (Auto) 0, Neutrophils (%) (Auto) 80H, Lymphocytes (%) (Auto) 9L, Monocytes (%) (Auto) 10, Eosinophils (%) (Auto) 0, Basophils (%) (Auto) 0, Neutrophils # (Auto) 6.2, Lymphocytes # (Auto) 0.7L, Monocytes # (Auto) 0.8, Eosinophils # (Auto) 0.0, Basophils # (Auto) 0.0, Immature Granulocyte # (Auto) 0.0, Sodium Level 129L, Potassium Level 3.5L, Chloride Level 90L, Carbon Dioxide Level 31, Anion Gap 8, Blood Urea Nitrogen 16, Creatinine 0.68, Estimat Glomerular Filtration Rate 95, BUN/Creatinine Ratio 24, Glucose Level 102, Calcium Level 8.7, Corrected Calcium 9.3, Total Bilirubin 0.3, Aspartate Amino Transf (AST/SGOT) 18, Alanine Aminotransferase (ALT/SGPT) 24, Alkaline Phosphatase 46, Total Protein 5.6L, Albumin 3.3 Microbiology 05/01/22 Blood Culture - Preliminary, Resulted No growth 05/01/22 MRSA Screen - Final, Complete 05/01/22 Urine Culture - Final, Complete Enterococcus faecalis Patient resulted labs reviewed. Pending Labs Laboratory Tests 05/04/22 05:03: Blood Gas Puncture Site RR, Blood Gas Patient Temperature 36.8, Arterial Blood pH 7.41, Arterial Blood Partial Pressure CO2 61, Arterial Blood Partial Pressure O2 61, Arterial Blood HCO3 38, Arterial Blood Total CO2 39.8, Arterial Blood Oxygen Saturation 94, Arterial Blood Base Excess 12.6, Skyler Test YES-POS, Blood Gas Ventilator Setting NO, Blood Gas Inspired Oxygen 3L 05/04/22 05:15: White Blood Count 7.7, Red Blood Count 4.10, Hemoglobin 11.7, Hematocrit 37, Mean Corpuscular Volume 89, Mean Corpuscular Hemoglobin 29, Mean Corpuscular Hemoglobin Concent 32, Red Cell Distribution Width 14.1, Platelet Count 235, Mean Platelet Volume 9.6, Immature Granulocyte % (Auto) 0, Neutrophils (%) (Auto) 80, Lymphocytes (%) (Auto) 9, Monocytes (%) (Auto) 10, Eosinophils (%) (Auto) 0, Basophils (%) (Auto) 0, Neutrophils # (Auto) 6.2, Lymphocytes # (Auto) 0.7, Monocytes # (Auto) 0.8, Eosinophils # (Auto) 0.0, Basophils # (Auto) 0.0, Immature Granulocyte # (Auto) 0.0, Sodium Level 129, Potassium Level 3.5, Chloride Level 90, Carbon Dioxide Level 31, Anion Gap 8, Blood Urea Nitrogen 16, Creatinine 0.68, Estimat Glomerular Filtration Rate 95, BUN/Creatinine Ratio 24, Glucose Level 102, Calcium Level 8.7, Corrected Calcium 9.3, Total Bilirubin 0.3, Aspartate Amino Transf (AST/SGOT) 18, Alanine Aminotransferase (ALT/SGPT) 24, Alkaline Phosphatase 46, Total Protein 5.6, Albumin 3.3 Imaging: Reviewed Imaging Report Discharge Home Medications: Active Scripts Active Reported [T-3] 90 Mcg PO DAILY Ventolin Hfa (Albuterol Sulfate) 90 Mcg Hfa.aer.ad 2 Puff INH Q6H PRN Metronidazole 1 % Gel..gram. 1 Applic TOP HS PRN APPLIES TO FACE [Cranberry Con W/Vitc] 30,000 Cap 1 Ea PO DAILY Aspirin EC (Aspirin) 81 Mg Tablet.dr 81 Mg PO DAILY Calcium 600 + Vit D Tablet (Calcium Carbonate/Vitamin D3) 600 Mg Calcium-10 Mcg (400 Unit) Tablet 1 Each PO DAILY Terbinafine (Terbinafine HCl) 1 % Cream..g. 1 Applic TOP DAILY APPLIES TO THE CORNER OF MOUTH [Probiotic] 200 BILLION Cap 1 Ea PO DAILY Benadryl (Diphenhydramine HCl) 25 Mg Capsule 50 Mg PO BID PRN Azo Bladder Control Capsule (Pumpkin Seed Extract/Soy Germ) 300 Mg Capsule 2 Ea PO BID Systane Ultra 0.4-0.3% Eye Drp (Propylene Glycol/Peg 400) 0.3 %-0.4 % Drops 1 Drop OU UD PRN Ocuvite Adult 50 Plus Softgel (Mv-Mn/Om3/Dha/Epa/Fish/Lut/Adolfo) 250 Mg (90 Mg-160 Mg)-5 Mg-1 Mg Capsule 1 Each PO HS Oxybutynin Chloride 5 Mg Tablet 10 Mg PO HS TAKES 2 (5MG) TABS Oxcarbazepine 300 Mg Tablet 600 Mg PO HS TAKES 2 (300MG) TABS Restasis (Cyclosporine) 0.05 % Droperette 1 Drop OU BID Amlodipine Besylate 10 Mg Tablet 10 Mg PO DAILY Citalopram HBr (Citalopram Hydrobromide) 40 Mg Tablet 40 Mg PO DAILY Lamotrigine 200 Mg Tablet 400 Mg PO HS TAKES 2 (200MG) TABS Alprazolam 0.5 Mg Tablet 1 Mg PO BID TAKES 2 (0.5MG) TABS Saphris (Asenapine Maleate) 10 Mg Tab.subl 20 Mg SL HS TAKES 2 (10MG) TABS Dorzolamide-Timolol Eye Drops (Dorzolamide HCl/Timolol Maleat) 22.3 Mg-6.8 Mg/Ml Drops 1 Drop OU BID Breztri Aerosphere Inhaler (Budesonide/Glycopyr/Formoterol) 160 Mcg-9 Mcg-4.8 Mcg/Actuation Hfa.aer.ad 2 Puff INH BID Naproxen 500 Mg Tablet 500 Mg PO BID Vyzulta (Latanoprostene Bunod) 0.024 % Drops 1 Drop OU HS Ondansetron HCl 4 Mg Tablet 4 Mg PO Q8H PRN Omeprazole 40 Mg Capsule.dr 40 Mg PO DAILY Nexium (Esomeprazole Magnesium) 40 Mg Cap 40 Mg PO BID [Ultimate Iron] 1 Ea PO DAILY Instructions to patient/family Please see electronic discharge instructions given to patient. DENNIS KENNEDY MD May 04, 2022 08:39
--- NOTE | 2022-05-04 09:05 | D/C HH Face to Face Order ---
D/C Face to Face Orders Instructions for Patient Via [facility], Patient Instructions/FollowUp: Please continue to take your medications as written. Please follow up with your primary care doctor to follow up this hospital stay. Physician to follow Patient: Dr Toussaint Discharge Diet for Home: Cardiac Diet Patient Data-Allergies,Ht & Wt Patient Allergies: Uncoded Allergies: MERCURY (Allergy, Mild, 08/24/10) Height (Feet): 5 Height (Inches): 6.00 Weight (Pounds): 254 Weight (Ounces): 0 Home Health Need/Face to Face Date of Face to Face: May 04, 2022 Clinical Findings: Generalized weakness and fatigue, Muscle weakness I have seen Pt [id number]: Yes Discharged To: Home Diagnosis/Conditions: COPD Patient is Homebound due to: Muscle weakness Homebound Status Due to the above stated illness, injury or surgical procedure (medical c ondition or diagnosis) and associated clinical findings, the patient is homebound because of his/her inability to leave home except with aid of a supportive device and/or person AND leaving the home requires a considerable and taxing effort or is medically contraindicated. Pt req the following assistanc: Aid of another person, Wheelchair Home Health Nursing Orders Home Health Services Order: Nursing Services, Taxicab Driver-Evaluate & Treat, Physical Therapy-Evaluate & Treat Home Health Infusion Therapy Line Start Date: May 01, 2022 Therapy Orders Therapy Orders: OT (must have SN or PT order), Physical Therapy Therapy Specific Orders: Eval assistive deivces, Teach strategies/cognitive deficits, Teach enviro modifications/safety, Gait training, Increase strength/endurance Certify Stmt I certify that this patient is under my care and that I, a nurse practitioner or a physician; a geriatric nursing assistant working with me, had a face to face encounter that - meets the physician face to face encounter requirements with this patient as dated. DENNIS KENNEDY MD May 04, 2022 09:05
[2022-05-04] MEDS ORDERED: PRED10TA22 PO (09:11)
--- NOTE | 2022-05-04 09:24 | Physical Therapy Daily Note ---
PT Daily Note-Current Subjective Patient agrees to PT. Pain Section J - Health Conditions 1. Rarely or not at all 2. Occasionally 3. Frequently 4. Almost constantly 8. Unable to answer Pain Effect on Sleep: 1 Pain Interference with Therapy: 1 Pain Interference w/Day-to-Day: 1 Mental Status Patient Orientation: Person, Time, Situation Transfers SCALE: Activities may be completed with or without assistive devices. 6-Bsznmoccxb-hlcyfjg completes the activity by him/herself with no assistance from a helper. 5-Set-up or Clean-up Assistance-helper sets up or cleans up; patient completes activity. [place] assists only prior to or following the activity. 4-Supervision or Touching Assistance-helper provides verbal cues and/or touching/steadying and/or contact guard assistance as patient completes activity. Assistance may be provided throughout the activity or intermittently. 3-Partial/Moderate Assistance-helper does LESS THAN HALF the effort. [place] lifts, holds or supports trunk or limbs, but provides less than half the effort. 2-Substantial/Maximal Assistance-helper does MORE THAN HALF the effort. [place] lifts or holds trunk or limbs and provides more than half the effort. 6-Smkewktly-bbvmis does ALL the effort. Patient does none of the effort to complete the activity. Or, the assistance of 2 or more helpers is required for the patient to complete the activity. If activity was not attempted, code reason: 7-Patient Refused. 9-Not Applicable-not attempted and the patient did not perform the activity before the current illness, exacerbation or injury. 10-Not Attempted due to Environmental Limitations-(lack of equipment, weather restraints, etc.). 88-Not Attempted due to Medical Conditions or Safety Concerns. Lying to Sitting/Side of Bed(Q: 4 Sit to Stand (QC): 4 Chair/Mba-fx-Dacgk Xfer(QC): 4 Toilet Transfer (QC): 4 Patient performed sit to stand x 4 sets CGA for safety to FWW Gait Training Distance: 5 steps x 2 Gait Assistive Device: FWW shuffle gait sequence Treatments (patient incontinent BM requiring dependent assist to cleanse and change)/sit to stand x 4 sets CGA for safety to FWW Assessment Patient has noted increase SOA with O2 in place with minimal activity. Plan dismissal to home on this date per physician. PT Intermediate Goals Furniture Repairer Goals PT Intermediate Goals Time Frame: May 15, 2022 Roll Left & Right (QC): 6 Sit to Lying (QC): 6 Lying-Sitting on Side/Bed(QC): 6 Sit to Stand (QC): 6 Chair/Cow-vy-Hdxwg Xfer(QC): 6 PT Plan Treatment/Plan Treatment Plan: Continue Plan of Care Treatment Plan: Bed Mobility, Education, Functional Activity Marjorie, Functional Strength, Safety, Therapeutic Exercise, Transfers Treatment Duration: May 15, 2022 Frequency: 6 times per week Estimated Hrs Per Day: .25 hour per day Patient and/or Family Agrees t: Yes Time/GCodes Time In: 801 Time Out: 824 Total Billed Treatment Time: 23 Total Billed Treatment 1 visit FA x 2 23 min ESME BURNETTE PT May 04, 2022 09:24
[2022-05-04 09:50] VITALS: BP 140/67
[2022-05-04 11:29] VITALS: BP 148/68
--- NOTE | 2022-05-04 12:24 | Progress Note - Cardiology ---
Cardiology SOAP Progress Note Subjective: Reports improvement of shortness of breath No cp or palp or syncope Gen malaise is improving No n/v/d Objective: I&O/Vital Signs 05/04/22 05/04/22 05/04/22 05/04/22 00:40 01:00 02:28 04:35 Temp 36.9 36.9 Pulse 67 61 72 Resp 20 20 B/P (MAP) 143/76 (98) 151/75 (100) Pulse Ox 93 94 92 O2 Delivery Nasal Cannula Nasal Cannula Nasal Cannula O2 Flow Rate 2.00 2.00 2.00 05/04/22 05/04/22 05/04/22 05/04/22 07:03 08:00 08:05 09:15 Temp 36.5 Pulse 63 62 Resp 18 B/P (MAP) 160/74 (102) Pulse Ox 95 95 O2 Delivery Nasal Cannula Nasal Cannula Room Air O2 Flow Rate 3.00 2.00 0.00 05/04/22 05/04/22 05/04/22 05/04/22 09:15 09:50 10:52 11:29 Temp 36.6 Pulse 61 57 Resp 18 B/P (MAP) 140/67 (91) 148/68 (94) Pulse Ox 97 95 92 90 O2 Delivery Nasal Cannula Room Air Room Air O2 Flow Rate 2.00 0.00 05/04/22 00:00 Intake Total 660 ml Output Total 575 ml Balance 85 ml Weight (Pounds): 254 Weight (Ounces): 0 Weight (Calculated Kilograms): [phone] Constitutional: AAO x 3 Respiratory: No accessory muscle use, No respiratory distress; chest expansion is symmetric, lungs clear to auscultation Cardiovascular: regular rate-rhythm Gastrointestional: No tender; soft, round, audible bowel sounds Extremities: no lower extremity edema bilateral Neurologic/Psychiatric: other (moves all limbs equally, mild tremor of the hand (fine, resting)) Skin: No rash on exposed areas, No ulcerations on exposed areas Results/Procedures: Labs Laboratory Tests 05/04/22 05:03: Blood Gas Puncture Site RR, Blood Gas Patient Temperature 36.8, Arterial Blood pH 7.41, Arterial Blood Partial Pressure CO2 61H, Arterial Blood Partial Pressure O2 61L, Arterial Blood HCO3 38H, Arterial Blood Total CO2 39.8H, Arterial Blood Oxygen Saturation 94, Arterial Blood Base Excess 12.6H, Skyler Test YES-POS, Blood Gas Ventilator Setting NO, Blood Gas Inspired Oxygen 3L 05/04/22 05:15: White Blood Count 7.7, Red Blood Count 4.10, Hemoglobin 11.7, Hematocrit 37, Mean Corpuscular Volume 89, Mean Corpuscular Hemoglobin 29, Mean Corpuscular Hemoglobin Concent 32, Red Cell Distribution Width 14.1, Platelet Count 235, Mean Platelet Volume 9.6, Immature Granulocyte % (Auto) 0, Neutrophils (%) (Auto) 80H, Lymphocytes (%) (Auto) 9L, Monocytes (%) (Auto) 10, Eosinophils (%) (Auto) 0, Basophils (%) (Auto) 0, Neutrophils # (Auto) 6.2, Lymphocytes # (Auto) 0.7L, Monocytes # (Auto) 0.8, Eosinophils # (Auto) 0.0, Basophils # (Auto) 0.0, Immature Granulocyte # (Auto) 0.0, Sodium Level 129L, Potassium Level 3.5L, Chloride Level 90L, Carbon Dioxide Level 31, Anion Gap 8, Blood Urea Nitrogen 16, Creatinine 0.68, Estimat Glomerular Filtration Rate 95, BUN/Creatinine Ratio 24, Glucose Level 102, Calcium Level 8.7, Corrected Calcium 9.3, Total Bilirubin 0.3, Aspartate Amino Transf (AST/SGOT) 18, Alanine Aminotransferase (ALT/SGPT) 24, Alkaline Phosphatase 46, Total Protein 5.6L, Albumin 3.3 Microbiology 05/01/22 Blood Culture - Preliminary, Resulted No growth 05/01/22 MRSA Screen - Final, Complete 05/01/22 Urine Culture - Final, Complete Enterococcus faecalis Laboratory Tests 05/03/22 06:06 05/04/22 05:15 A/P: Assessment: Acute respiratory failure with acute hypoxemia - likely multi-factorial - probable obesity-hypoventilation syndrome, acute exacerbation of COPD and a cute diastolic CHF Type 2 PA - secondary to acute hypoxia Hyponatremia - undetermined etiology UTI - management per medical services H/o Palpitations: - none currently - Intolerance to beta-carlos because of significant bradycardia on these agents - Echo of 09/16/15 showed LVEF 60%, and mild regurg of the mitral and triscuspid and aortic valves. PASP was 30 mmHg - MPI of 09/26/18 shows a small amt of anterolat ischemia, LVEF 58% - Cardiac cath of 05-22-2019: No angiographically significant coronary artery disease. Normal global left ventricular systolic function with ejection fraction of approximately 60%. Elevated left ventricular end-diastolic pressure - Echo of 05/03/22: LVEF 55-60%, biatrial enlargement, PASP 40-45 mmHg Obesity with BMI approx 45 - Sleep studies with Dr Hudson on 11/29/13 did not show obstructive sleep apnea; only mod primary snoring was seen Daytime somnolence and fatigue, currently stable Chronic leg swelling - probably due mild venous insuff Bipolar disorder, being managed by her psychiatrist Severe DJD, especially of the knees, leading to wheechair-bound state, managed by pcp Carotid dz: - Mild bilat carotid arterial disease per carotid u/s of 10/05/18 Plan: * Reduce diuretic * Monitor labs * Replace electrolytes * Echo and CV issues discussed with patient. Advised sleep studies ONELIA PANDA MD FACP [facility] May 04, 2022 12:24
[2022-05-04] MEDS: ACETAMINOPHEN 325 MG TABLET PO PRN (14:18)
== END 2022-05-04 14:24 | disposition home health service (06) | DRG 205 ==
LOC: EDUNIT# 12:15 → ER 12:17 → ICU 14:00 → 4TH 05-03 13:07
PROVIDERS: ADMIT Internal Medicine; ATTEND Internal Medicine
PROC: 5A09357 Assistance with Respiratory Ventilation, Less than 24 Consecutive Hours, Continuous Positive Airway Pressure (ICD-10-PCS; principal; 2022-05-01)
DX: E66.2 Morbid (severe) obesity with alveolar hypoventilation (principal); I21.A1 Myocardial infarction type 2; I50.31 Acute diastolic (congestive) heart failure; J96.21 Acute and chronic respiratory failure with hypoxia; J96.22 Acute and chronic respiratory failure with hypercapnia; J44.1 Chronic obstructive pulmonary disease with (acute) exacerbation; N39.0 Urinary tract infection, site not specified; E87.1 Hypo-osmolality and hyponatremia; Z68.42 Body mass index [BMI] 45.0-49.9, adult; I11.0 Hypertensive heart disease with heart failure; Z20.822 Contact with and (suspected) exposure to COVID-19; I89.0 Lymphedema, not elsewhere classified; Z79.82 Long term (current) use of aspirin; Z79.899 Other long term (current) drug therapy; E78.00 Pure hypercholesterolemia, unspecified; M19.90 Unspecified osteoarthritis, unspecified site; G89.29 Other chronic pain; M54.9 Dorsalgia, unspecified; E03.9 Hypothyroidism, unspecified; H40.9 Unspecified glaucoma; F90.9 Attention-deficit hyperactivity disorder, unspecified type; F41.9 Anxiety disorder, unspecified; F31.9 Bipolar disorder, unspecified; I65.23 Occlusion and stenosis of bilateral carotid arteries
CPT/HCPCS: 36415; 36600; 51702; 71045; 80048; 80053; 81000; 82805; 83605; 83735; 83880; 84100; 84145; 84484; 85007; 85025; 85027; 85379; 85610; 85730; 86141; 87040; 87077; 87081; 87088; 87186; 87636; 90662; 93005; 93306; 94640; 94660; 94760; 94761; 99291

== ENCOUNTER → 2022-05-13 | Outpatient (CLI) | payer MEDICARE, OTHER ==
[~2022-05-13] MED LIST changes: +ALBU18HF2 INH; +BUDE10.7 INH; +CALC-1037 PO; +CITA40TA13 PO; +DIPH25CA79 PO; +ESOM40CA52 PO; +METR60GE4 TOP; +MV-M1CAP24 PO; +NF-ESOM40C PO; +OMEP40CA6 PO; +ONDA-105 PO; +ONDA4TAB11 SL; +POLY1DRO OP; +PRED10TA22 PO; +PROBIOTIC PO; +PROP10DR2 OU; +PUMP300C PO; +TERB15CR6 TOP; +VITC PO; +[UNRECOGNIZED DRUG - OTHER] PO; +[UNRECOGNIZED DRUG - OTHER] PO
--- NOTE | 2022-05-13 14:52 | Diagnostic Imaging Report ---
PROCEDURE: US Gallbladder. TECHNIQUE: Multiple real-time grayscale images were obtained over the right upper quadrant in various projections. INDICATION: Right upper quadrant pain. FINDINGS: The liver is normal in size at 17 cm. Portal vein is patent and shows normal direction of flow. Gallbladder is stone filled. No wall thickening or biliary ductal dilatation is seen. Visualized pancreas is unremarkable. Aorta is nonaneurysmal. IVC is patent. Right kidney is without calculi or hydronephrosis. There is no ascites. IMPRESSION: 1. Stone-filled gallbladder. No other significant abnormality is detected. Dictated by: Dictated on workstation # [id number]
== END ==
LOC: RAD 09:45
PROVIDERS: ATTEND Surgery
DX: K80.20 Calculus of gallbladder without cholecystitis without obstruction (principal)
CPT/HCPCS: 76705

== ENCOUNTER 2022-05-20 05:44 | Outpatient (CLI) | payer MEDICARE, OTHER ==
[~2022-05-20] VITALS: Ht 167.7 cm; Wt 134.5 kg
[2022-05-24] MEDS ORDERED: OMEP40CA6 PO (15:15)
== END 2022-05-24 15:32 | disposition home or self-care (01) ==
LOC: PREOP 05:44
PROVIDERS: ATTEND Surgery
DX: Z01.818 Encounter for other preprocedural examination (principal)

== ENCOUNTER 2022-05-27 09:52 | Inpatient (IN) | payer MEDICARE, OTHER ==
--- NOTE | 2022-05-20 06:51 | HISTORY AND PHYSICAL ---
DATE OF SERVICE: PROCEDURE DATE: 05/27/2022. ATTENDING PRIMARY CARE PHYSICIAN: Dr. Marcel Toussaint. HISTORY OF PRESENT ILLNESS: The patient is a 67-year-old female who is known to us. She was seen in 11/2017 for diarrhea and reports that she did have a Hemoccult positive test at that time. On 12/28/2017, she underwent a colonoscopy. She was found to have chronic stage II external and internal hemorrhoids as well as moderate sigmoid diverticulosis. On today's visit, she reports that for the past month, she has had daily episodes of diarrhea, but denied any visible blood in her stool. She reports that she was also recently in the hospital and since that time has had worsening reflux. She reports episodes of nausea and vomiting as well as bloating sensation. She reports that the diarrhea is usually worse in the morning, but will happen throughout the day, also. She reports that she has never had an upper endoscopy before. She also reports that the nausea and vomiting seem to occur with any food and there is no specific food that triggers her symptoms. She does report that her daughter has a history of gallbladder disease. PAST MEDICAL HISTORY: Anxiety, depression, ADHD, obesity, glaucoma, bipolar, hypothyroidism, hypertension, hypercholesterolemia, and insomnia, osteoarthritis, gastroesophageal reflux disease, COPD. PAST SURGICAL HISTORY: Complete hysterectomy in 2008, left total knee replacement in 2014. ALLERGIES: No known drug allergies. MEDICATIONS: Mupirocin 2% ointment b.i.d. as directed, oxcarbazepine 300 mg 2 tablets at bedtime, aspirin 81 mg daily, Vyzulta 0.024% ophthalmic solution, nitrofurantoin 100 mg b.i.d., asenapine 10 mg, dorzolamide/timolol 22.3/6.5 ophthalmic solution, Xanax 0.5 mg, Nexium 40 mg twice a day, citalopram 40 mg daily, lamotrigine 200 mg, amlodipine 10 mg, omeprazole 40 mg. SOCIAL HISTORY: Negative for tobacco smoke. Rare for alcohol. FAMILY HISTORY: Father, stroke, myocardial infarction. Mother, lung cancer. Brother, lung cancer. VITAL SIGNS: Stable. Current weight is 296 pounds at 5 feet 6 inches. REVIEW OF SYSTEMS: Well-nourished female, in no acute distress. She is not experiencing any shortness of breath or difficulty breathing. No chest pain, palpitations or diaphoresis. She denies any abdominal pain, but does report episodes of nausea and vomiting as well as reflux and diarrhea. No red blood per rectum. No dark tarry stools. No fever or chills. No recent inadvertent weight loss. All other review of systems negative. PHYSICAL EXAMINATION: CHEST: Clear. Good breath sounds bilaterally. HEART: Regular, no murmurs. EXTREMITIES: No lower extremity edema. Negative Homans sign. HEENT: No scleral icterus. NECK: No cervical lymphadenopathy. ABDOMEN: Soft, nontender, nondistended. SKIN: Warm, dry and pink. NEUROLOGIC: Awake, alert and oriented x3. ASSESSMENT AND PLAN: A 67-year-old female who underwent a gallbladder ultrasound and was found to have gallstones consistent with chronic calculous cholecystitis. At this time, our recommendation is to proceed with a laparoscopic cholecystectomy. The risks and benefits of the procedure as well as the procedure and home care instructions were explained to the patient. She verbalized understanding of instructions and agrees to proceed as planned. At this time, we will schedule her for laparoscopic cholecystectomy. Job ID: [id number] DocumentID: [id number] Dictated Date: 05/19/2022 11:14:16 Energy Attorney Date: 05/19/2022 11:42:05 Dictated By: JJ MASCORRO
[2022-05-27] VITALS (9 sets, daily range): BP systolic 102–172; BP diastolic 74–93
[~2022-05-27] VITALS: Ht 167.7 cm; Wt 134.5 kg
--- NOTE | 2022-05-27 10:05 | Progress Note-Pre Operative ---
Pre-Operative Progress Note Date H&P Reviewed: May 27, 2022 Time H&P Reviewed: 10:05 History & Physical: H&P Reviewed, Patient Examed, No changes noted Pre-Operative Diagnosis: Chronic calculous cholecystitis BRUNILDA ARREDONDO APRN May 27, 2022 10:05
[2022-05-27] MEDS ORDERED: HYDR-3817 PO (10:08)
--- NOTE | 2022-05-27 10:09 | Discharge Inst-Surgical ---
D/C Lap Instructions-KIDO Reconcile Patient Problems Problems Reviewed?: Yes New, Converted, or Re-Newed RX: RX on Chart Follow Up Appt in 2 weeks Activity as tolerated No driving for 24 hours No driving while on pain medications Incentive Spirometry use every 2 hours while awake Regular Diet Symptoms to Report: Fever over 101 degree F, Nausea/Vomiting Infection Signs and Symptoms to report: Increased redness, Foul odor of wound, Increased drainage Bathing instructions: May shower Operative Area Clean/Dry; Keep incision clean/dry If any problems/questions: Contact your physician or go to Emergency Room BRUNILDA ARREDONDO APRN May 27, 2022 10:09
[2022-05-27] MEDS ORDERED: ACETAMINOPHEN 325 MG TABLET PO PRN (10:15)
[2022-05-27] MEDS ORDERED: HYDROcodone/APAP 5 MG/325 MG (LORTAB) TAB PO ONE (10:15)
[2022-05-27] MEDS ORDERED: LIDOCAINE/EPI 1%-1:100,000 (XYLOCAINE) 10 ML ONE (10:45)
[2022-05-27] MEDS ORDERED: BUP/EPI 0.5% 1:200,000 (MARCAINE) 10ML VIAL IJ ONE (10:54)
[2022-05-27] MEDS ORDERED: ROCURONIUM 10 MG/ML 5 ML SYRINGE IV ONE (12:36)
[2022-05-27] MEDS ORDERED: MIDAZOLAM 2 MG/2 ML (VERSED) VIAL ONE (12:36)
[2022-05-27] MEDS ORDERED: LIDOCAINE PF 2% 5 ML (XYLOCAINE) VIAL ONE (12:36)
[2022-05-27] MEDS ORDERED: fentaNYL INJ 100 MCG/2 ML AMP ONE (12:36)
[2022-05-27] MEDS ORDERED: SEVOFLURANE (ULTANE) 15 ML INHAL SOLN ONE (12:36)
[2022-05-27] MEDS ORDERED: proPOfol 200 MG/20 ML (DIPRIVAN) VIAL IV ONE (12:36)
[2022-05-27] MEDS: ceFAZolin INJECTION 2,000 MG in NS (IVPB) 50 ML IV ONE ×2 (12:42→12:59)
[2022-05-27] MEDS ORDERED: GLYCOPYRROLATE 0.2 MG/ML (ROBINUL) 2 ML VIAL ONE ×2 (13:18→14:17)
[2022-05-27] MEDS: LACTATED RINGERS 1,000 ML IV SCH (13:28)
[2022-05-27] MEDS ORDERED: PHENYLEPHRINE 100 MCG/ML 10 ML (ANESTHESIA) SYR ONE (14:17)
[2022-05-27] MEDS ORDERED: NEOSTIGMINE (BLOXIVERZ ) 1 MG/1ML 10 ML VIAL ONE (14:17)
--- NOTE | 2022-05-27 14:22 | Progress Note-Post Operative ---
Post-Operative Progess Note Surgeon (s)/Stationary Engineer Supervisor (s) Surgeon FER MICHELLE MD Stationary Engineer Supervisor: josefina ramirez OSTEOPATHIC PHYSICIAN Pre-Operative Diagnosis Chronic calculous cholecystitis Post-Operative Diagnosis same Procedure & Operative Findings Date of Procedure 05/27/22 Procedure Performed/Findings laparoscopic cholecystectomy. Anesthesia Type get Estimated Blood Loss Estimated blood loss (mL): minimal Specimens/Packing Specimens Removed gallbladder FER MICHELLE MD May 27, 2022 14:22
--- NOTE | 2022-05-27 14:37 | Anesthesia-General Post-Op ---
General Patient Condition Mental Status/LOC: Same as Preop Cardiovascular: Satisfactory Nausea/Vomiting: Absent Respiratory: Satisfactory Pain: Controlled Complications: Absent Post Op Complications Complications None Follow Up Care/Instructions Patient Instructions None needed. Anesthesia/Patient Condition Patient Condition Patient is doing well, no complaints, stable vital signs, no apparent adverse anesthesia problems. No complications reported per nursing. EMANUEL MELISSA CRNA May 27, 2022 14:37
[2022-05-27] MEDS ORDERED: morphine INJ 10 MG/ML 1ML (SYR OR VIAL) IVP ONE (14:45)
[2022-05-27] MEDS ORDERED: MEPERIDINE (DEMEROL) INJ 50 MG/ML IVP ONE (14:45)
[2022-05-27] MEDS ORDERED: ONDANSETRON 4 MG/2 ML (SDV) Z0FRAN IVP PRN (14:45)
[2022-05-27] MEDS ORDERED: HYDROcodone/APAP 5 MG/325 MG (LORTAB) TAB ONE (15:57)
[2022-05-27] MEDS: HYDROcodone/APAP 7.5 MG/325 MG (LORTAB, LORCET PLUS) TABLET PO PRN (19:47)
--- NOTE | 2022-05-27 20:57 | OPERATIVE REPORT ---
DATE OF SERVICE: 05/27/2022 ATTENDING PRIMARY CARE PHYSICIAN: Dr. Marcel Toussaint. PREOPERATIVE DIAGNOSIS: Symptomatic chronic calculous cholecystitis. POSTOPERATIVE DIAGNOSIS: Symptomatic chronic calculous cholecystitis. PROCEDURE: Laparoscopic cholecystectomy. SURGEON: Fer Michelle MD MEAT PULLER: Naeem Malone APRN. ANESTHESIA: General endotracheal. ESTIMATED BLOOD LOSS: Minimal. FINDINGS: Jaswant dilated gallbladder, likely secondary to the chronicity of the cholecystitis. DISPOSITION: The patient tolerated the procedure well. INDICATIONS: The patient is a 67-year-old male known to us. We had seen her before for endoscopy. She states in the past few months, she has had issues with right upper abdominal quadrant pain, nausea and vomiting as well as diarrhea, usually after eating meals. She states that this was initially mild; however, did become more frequent as well as more severe in nature. She reports that food often triggers her symptoms. She did have ultrasound performed, which did show a dilated gallbladder as well as multiple gallstones. DESCRIPTION OF PROCEDURE: The patient was brought to the operating room, laid supine on the table. After adequate IV pain and sedative medications and general endotracheal intubation, the abdomen was prepped and draped in standard surgical fashion. A 0.5% Marcaine with epinephrine was then used to anesthetize overlying skin in the left upper abdominal quadrant and a transverse skin incision made using 15 blade. An 0 silk suture was applied to the medial aspect incision for retraction and a Veress needle inserted with a low opening pressure of 0 mmHg. The abdomen was then insufflated to 15 mmHg pressure. The Veress needle removed and a 5 mm XL trocar placed followed by a 5 mm 45-degree angle laparoscope visualizing the peritoneal cavity. A 4-quadrant abdominal exploration was performed. There was significantly large and distended gallbladder, which had to be decompressed before the procedure with a laparoscopic needle. Under direct visualization, we then proceeded to place a supraumbilical 10 mm port through an umbilical hernia with a fascial defect approximately 1.5 cm in size. This was done after the skin and peritoneal lining were anesthetized using 0.5% Marcaine with epinephrine. In a similar manner, a right upper abdominal quadrant 5 mm port was placed. The patient was then placed in reverse Trendelenburg position as well as plane right side up, left side down. The fundus of the gallbladder was then retracted anteriorly and superiorly. The hepatoduodenal ligament was then dissected opened using electrocautery as well as blunt dissection using the hook instrument as well as a [place] dissector. The entire critical view of safety was identified including the triangle of Calot as well as the cystic duct and artery as only two structures going into the gallbladder as well as the cystic plate behind the proximal gallbladder. A timeout was then taken and the cystic duct and artery were then clipped proximally and distally and cut with EndoShears. The gallbladder was then dissected off the liver bed. A timeout was then taken and the cystic duct and artery were then clipped proximally and distally and cut with EndoShears. The gallbladder was dissected off the liver bed using cautery on hook instrument with visualization of good hemostasis as well as no leaking ducts of Luschka. The gallbladder was then removed through the 10 mm port site using an EndoCatch bag. We then proceeded with primary repair of the umbilical hernia and a skin incision was extended laterally using a 15 blade. The hernia sac identified and completely dissected out using electrocautery. The fascial defect was approximately 1.5 cm in size and we decided to proceed with a primary repair of the hernia using a 0 Vicryl running suture. Good hemostasis was observed. The umbilicus was then imbricated to the fascia and the abdomen desufflated and remaining ports removed. All skin incisions were closed using 4-0 Monocryl running subcuticular sutures. Wounds were then cleaned and covered with Dermabond. The patient tolerated the procedure well. We will start IV normal pain medication as well as a clear liquid diet. When she is tolerating clears, has good pain control with oral pain medications, ambulating well, we will discharge her home where she will be instructed to do no heavy lifting for the next six weeks. Due to her history of severe degenerative joint disease of the right knee and nonambulatory status as well as lack of help from home and other medical comorbidities including COPD, we are going to admit her for observation until she has stable vital signs, oxygen saturations as well as is able to ambulate at her baseline. Job ID: [id number] DocumentID: [id number] Dictated Date: 05/27/2022 14:25:15 Site Supervisor Date: 05/27/2022 20:56:27 Dictated By: FER MICHELLE MD
[2022-05-28] VITALS: BP 174/74
[2022-05-28] MEDS: HYDROcodone/APAP 7.5 MG/325 MG (LORTAB, LORCET PLUS) TABLET PO PRN ×5 (00:57→23:50)
[2022-05-28 04:15] VITALS: BP 156/70
[2022-05-28] MEDS: morphine INJ 10 MG/ML 1ML (SYR OR VIAL) IVP PRN ×2 (07:44→11:20)
[2022-05-28] MEDS: ONDANSETRON 4 MG/2 ML (SDV) Z0FRAN IVP PRN (07:44)
[2022-05-28 08:08] VITALS: BP 123/62
[2022-05-28] MEDS: LACTATED RINGERS 1,000 ML IV SCH (10:40)
[2022-05-28 11:15] LABS: BASOPHILS % (AUTO) 0 % (0-10); EOSINOPHILS # (AUTO) 0.1 10^3/uL (0.0-0.3); EOSINOPHILS % (AUTO) 2 % (0-10); HEMATOCRIT 40 % (35-52); HEMOGLOBIN 12.6 g/dL (11.5-16.0); LYMPHOCYTES # (AUTO) 0.4 10^3/uL (1.0-4.0); LYMPHOCYTES % (AUTO) 6 % (12-44); MEAN CORPUSCULAR HEMOGLOBIN 29 pg (25-34); MEAN CORPUSCULAR HGB CONC 31 g/dL (32-36); MEAN CORPUSCULAR VOLUME 93 fL (80-99); MONOCYTES # (AUTO) 0.5 10^3/uL (0.0-1.0); MONOCYTES % (AUTO) 7 % (0-12); NEUTROPHILS # (AUTO) 5.6 10^3/uL (1.8-7.8); NEUTROPHILS % (AUTO) 84 % (42-75); PLATELET COUNT 226 10^3/uL (130-400); WHITE BLOOD COUNT 6.7 10^3/uL (4.3-11.0)
[2022-05-28] MEDS: PROMETHAZINE INJ 25 MG/ML (PHENERGAN) AMP IVP SCH ×5 (11:16→23:50)
[2022-05-28] MEDS: METOCLOPRAMIDE INJ 10 MG/2 ML (REGLAN) IVP SCH ×3 (11:16→23:51)
[2022-05-28 11:22] VITALS: BP 167/76
[2022-05-28 11:35] LABS: ALBUMIN 3.4 GM/DL (3.2-4.5); BILIRUBIN,TOTAL 0.4 MG/DL (0.1-1.0); CREATININE SERUM 0.6 MG/DL (0.60-1.30); MAGNESIUM 1.7 MG/DL (1.6-2.4); POTASSIUM 3.5 MMOL/L (3.6-5.0); TOTAL PROTEIN 6.2 GM/DL (6.4-8.2)
[2022-05-28 11:46] LABS: BAND NEUTROPHILS 0 %; BASOPHILS % (MANUAL) 0 %; EOSINOPHILS % (MANUAL) 1 %; LYMPHOCYTES % (MANUAL) 7 %; MONOCYTES % (MANUAL) 6 %; NEUTROPHILS % (MANUAL) 86 %; RBC MORPH NORMAL
[2022-05-28 13:37] LABS: PROTHROMBIN TIME PATIENT 13.9 SEC (12.2-14.7)
--- NOTE | 2022-05-28 14:35 | Progress Note ---
Subjective Date Seen by a Provider: May 28, 2022 Time Seen by a Provider: 14:00 Subjective/Events-last exam doing ok however still having nausea and vomiting. pain controlled. labs normal. Objective Exam Vital Signs Date Time Temp Pulse Resp B/P (MAP) Pulse Ox O2 Delivery O2 Flow Rate FiO2 05/28/22 14:16 36.6 05/28/22 11:50 36.6 05/28/22 11:22 36.6 70 18 167/76 (106) 90 Nasal Cannula 3.00 05/28/22 11:20 36.8 05/28/22 10:59 36.8 05/28/22 08:58 95 Nasal Cannula 3.00 05/28/22 08:14 36.8 05/28/22 08:08 36.8 77 18 123/62 (82) 90 Nasal Cannula 3.00 05/28/22 04:15 37.2 68 16 156/70 (98) 92 Nasal Cannula 2.50 05/28/22 00:00 37.3 63 18 174/74 (107) 93 Nasal Cannula 2.50 05/27/22 19:53 92 Nasal Cannula 3.00 05/27/22 19:41 Nasal Cannula 2.00 05/27/22 19:28 36.6 62 18 167/77 (107) 95 Nasal Cannula 4.00 05/27/22 16:00 36.4 60 20 170/74 (106) 96 Room Air 05/27/22 15:20 37.7 16 149/85 (106) 93 Nasal Cannula 4.00 05/27/22 15:20 Nasal Cannula 4.00 05/27/22 15:10 12 168/93 (118) 97 Room Air 05/27/22 15:05 OxyMask 4.00 05/27/22 15:00 13 171/84 (113) 97 OxyMask 4.00 05/27/22 14:50 14 172/86 (114) 97 OxyMask 8 05/27/22 14:50 OxyMask 8 05/27/22 14:40 16 156/83 (107) 98 OxyMask 8 05/27/22 14:35 OxyMask 8 I & O 05/28/22 07:00 Intake Total 3212 ml Output Total 750 ml Balance 2462 ml Capillary Refill : General Appearance: No Apparent Distress HEENT: PERRL/EOMI Neck: Full Range of Motion Respiratory: Chest Non Tender, Lungs Clear, Normal Breath Sounds Cardiovascular: Regular Rate, Rhythm Gastrointestinal: normal bowel sounds, soft Extremity: Normal Capillary Refill Neurologic/Psychiatric: Alert, Oriented x3 Skin: Normal Color Lymphatic: No Adenopathy Results Lab Laboratory Tests 05/28/22 11:08: White Blood Count 6.7, Red Blood Count 4.33, Hemoglobin 12.6, Hematocrit 40, Mean Corpuscular Volume 93, Mean Corpuscular Hemoglobin 29, Mean Corpuscular Hemoglobin Concent 31L, Red Cell Distribution Width 14.9H, Platelet Count 226, Mean Platelet Volume 9.0, Immature Granulocyte % (Auto) 1, Neutrophils (%) (Auto) 84H, Lymphocytes (%) (Auto) 6L, Monocytes (%) (Auto) 7, Eosinophils (%) (Auto) 2, Basophils (%) (Auto) 0, Neutrophils # (Auto) 5.6, Lymphocytes # (Auto) 0.4L, Monocytes # (Auto) 0.5, Eosinophils # (Auto) 0.1, Basophils # (Auto) 0.0, Immature Granulocyte # (Auto) 0.0, Neutrophils % (Manual) 86, Lymphocytes % (Manual) 7, Monocytes % (Manual) 6, Eosinophils % (Manual) 1, Basophils % (Manual) 0, Band Neutrophils 0, Blood Morphology Comment NORMAL, Prothrombin Time 13.9, INR Comment 1.0, Sodium Level 138, Potassium Level 3.5L, Chloride Level 102, Carbon Dioxide Level 27, Anion Gap 9, Blood Urea Nitrogen 5L, Creatinine 0.60, Estimat Glomerular Filtration Rate 97, BUN/Creatinine Ratio 8, Glucose Level 99, Calcium Level 9.0, Corrected Calcium 9.5, Magnesium Level 1.7, Total Bilirubin 0.4, Aspartate Amino Transf (AST/SGOT) 49H, Alanine Aminotransferase (ALT/SGPT) 25, Alkaline Phosphatase 66, Total Protein 6.2L, Albumin 3.4 Microbiology 05/27/22 MRSA Screen - Final, Complete MRSA not isolated Assessment/Plan Assessment/Plan Assess & Plan/Chief Complaint s/p laparoscopic cholecystectomy persistent nausea/vomiting. cont clears. patient baseline ambulatory status poor. FER MICHELLE MD May 28, 2022 14:35
[2022-05-28 15:55] VITALS: BP 169/75
[2022-05-28] MEDS ORDERED: ASPIRIN 81 MG CHEW (CHILDREN'S ASA) PO NR (16:30)
--- NOTE | 2022-05-28 17:44 | Consultation-Cardiology ---
HPI-Cardiology Cardiology Consultation: Date of Consultation 05/28/22 Date of Admission 05/27/2022 Attending Physician Marcel Toussaint MD Admitting Physician Admitting Physician: Attending Physician: Cliff Vail MD Consulting Physician MERI CADE JR, MD HPI: Time Seen by a Provider: 17:39 Chief Complaint: REASON FOR CONSULTATION: Chest pain. I had the pleasure of seeing Terrie on the medical/surgical unit at [facility] in [place], [place] this evening. She normally follows with one of my partners for chronic heart failure with preserved ejection fraction. She presented to the hospital on 05/27 for an outpatient elective cholecystectomy. The procedure appears to have been uneventful but postoperatively she did developed persistent nausea and vomiting and was kept overnight. The nausea and vomiting has persisted throughout today off and on. Then this afternoon after she had a vomiting episode, she has developed left-sided chest tightness. She notified the nurse who then performed an electrocardiogram. After few minutes, the chest tightness is subsided on its own. She denies any radiation or associated symptoms. She does not recall having this sort of chest tightness or discomfort in the past. She has chronic dyspnea on exertion which has been unchanged. She states this is due to her chronic obstructive pulmonary disease. She denies paroxysmal nocturnal dyspnea, or orthopnea or palpitations. She has had some off-and-on lightheaded spells but denies syncope. She has chronic, intermittent peripheral edema. Because of the chest pain, a cardiology consu ltation was requested. Certain portions of this document may have been dictated utilizing voice recognition technology. Inherent to this technology, typographical and grammatical errors may exist. As much as I am diligent to identify and correct these mistakes, some errors may remain in the document. Review of Systems-Cardiology Review of Systems Other comments Review of 10 organ systems is as per the history of present illness, otherwise negative. ICG-Lhwuma-Bddrqb Hx Patient Social History 2nd Hand Smoke Exposure: Yes Immunizations Up To Date Tetanus Booster (TDap): Unknown Date of Pneumonia Vaccine: Apr 01, 2018 Date of Influenza Vaccine: May 01, 2022 Past Medical History PMH As described under Assessment. Family Medical History Family History: Alcoholism 03 FATHER, Age:96 03 MOTHER, , Age:60 years and older 09 BROTHER, Age:71 09 BROTHER, , Age:40's - 50 09 BROTHER, Age:66 09 BROTHER, Age:62 09 SISTER, Age:59 Cancer 03 MOTHER, , Age:60 years and older 09 BROTHER, , Age:40's - 50 Cataract 03 FATHER, Age:96 Family history: Arthritis 09 SISTER, Age:59 Family history: Gastrointestinal disease 09 BROTHER, Age:62 Family history: Thyroid disorder 09 SISTER, Age:59 Headache 03 FATHER, Age:96 03 MOTHER, , Age:60 years and older 09 BROTHER, Age:71 09 BROTHER, , Age:40's - 50 09 BROTHER, Age:66 09 BROTHER, Age:62 09 SISTER, Age:59 History of drug abuse Visual impairment No Family History of: Abdominal aortic aneurysm Putnam's disease Aphasia Cancer of colon Chest pain Congenital heart disease Congestive heart failure Cystic fibrosis Dementia Dysphagia Family history: Allergy Family history: Alzheimer's disease Family history: Asthma Family history: Breast disease Family history: Cardiovascular disease Family history: Coronary thrombosis Family history: Diabetes mellitus Family history: Glaucoma Family history: Hypertension Family history: Osteoporosis Hearing loss Heart disease Hereditary disease History of - anemia History of - respiratory disease Human immunodeficiency virus (HIV) seropositivity Hypercholesterolemia Infertile Kidney disease Malignant neoplasm of lung Myocardial infarction Parkinson's disease Prostate cancer Psychotic disorder Seizure disorder Stroke Tuberculosis Allergies and Home Medications Allergies Uncoded Allergies: MERCURY (Allergy, Mild, unknown, 05/24/22) Patient Home Medication List Home Medication List Reviewed: Yes Albuterol Sulfate (Ventolin Hfa) 90 Mcg Hfa.aer.ad, 2 PUFF INH Q6H PRN for SHORTNESS OF BREATH, (Reported) Entered as Reported by: MINOO YOU on 05/03/22 115 Alprazolam (Alprazolam) 0.5 Mg Tablet, 1 MG PO BID, (Reported) Entered as Reported by: MINOO YOU on 05/03/22 115 Last Action: Last Taken Edited Amlodipine Besylate (Amlodipine Besylate) 10 Mg Tablet, 10 MG PO DAILY, (Reported) Entered as Reported by: MINOO YOU on 05/03/221158 Asenapine Maleate (Saphris) 10 Mg Tab.subl, 20 MG SL HS, (Reported) Entered as Reported by: MINOO YOU on 05/03/22 115 Aspirin (Aspirin EC) 81 Mg Tablet.dr, 81 MG PO DAILY, (Reported) Entered as Reported by: MINOO YOU on 05/03/22 1159 Budesonide/Glycopyr/Formoterol (Breztri Aerosphere Inhaler) 160 Mcg-9 Mcg-4.8 Mcg/Actuation Hfa.aer.ad, 2 PUFF INH BID, (Reported) Entered as Reported by: MINOO YOU on 05/03/22 1159 Calcium Carbonate/Vitamin D3 (Calcium 600 + Vit D Tablet) 600 Mg Calcium-10 Mcg (400 Unit) Tablet, 1 EACH PO DAILY, (Reported) Entered as Reported by: MINOO YOU on 05/03/22 115 Citalopram Hydrobromide (Citalopram HBr) 40 Mg Tablet, 40 MG PO DAILY, (Reported) Entered as Reported by: MINOO YOU on 05/03/22 115 Cyclosporine (Restasis) 0.05 % Droperette, 1 DROP OU BID, (Reported) Entered as Reported by: MINOO YOU on 05/03/22 115 Diphenhydramine HCl (Benadryl) 25 Mg Capsule, 50 MG PO BID PRN for ALLERGY SYMPTOMS, (Reported) Entered as Reported by: MINOO YOU on 05/03/22 115 Dorzolamide HCl/Timolol Maleat (Dorzolamide-Timolol Eye Drops) 22.3 Mg-6.8 Mg/Ml Drops, 1 DROP OU BID, (Reported) Entered as Reported by: MINOO YOU on 05/03/22 115 Esomeprazole Magnesium (Nexium) 40 Mg Cap, 40 MG PO BID, (Reported) Entered as Reported by: KELSEY GRIFFITH on 05/02/22 1455 Last Action: Last Taken Edited Hydrocodone/Acetaminophen (Hydrocodone-Acetamin 7.5-325) 7.5 Mg-325 Mg Tablet, 1 EACH PO Q4H PRN for PAIN-BREAKTHROUGH Prescribed by: BRUNILDA ARREDONDO on 05/27/22 1008 Lamotrigine (Lamotrigine) 200 Mg Tablet, 400 MG PO HS, (Reported) Entered as Reported by: MINOO YOU on 05/03/22 115 Latanoprostene Bunod (Vyzulta) 0.024 % Drops, 1 DROP OU HS, (Reported) Entered as Reported by: MINOO YOU on 05/03/221158 Mv-Mn/Om3/Dha/Epa/Fish/Lut/Adolfo (Ocuvite Adult 50 Plus Softgel) 250 Mg (90 Mg-160 Mg)-5 Mg-1 Mg Capsule, 1 EACH PO HS, (Reported) Entered as Reported by: MINOO YOU on 05/03/221158 Omeprazole (Omeprazole) 40 Mg Capsule.dr, 40 MG PO UD, (Reported) Entered as Reported by: GALINDO SHEPHERD on 05/24/22 151 Oxcarbazepine (Oxcarbazepine) 300 Mg Tablet, 600 MG PO HS, (Reported) Entered as Reported by: MINOO YOU on 05/03/221158 Oxybutynin Chloride (Oxybutynin Chloride) 5 Mg Tablet, 10 MG PO HS, (Reported) Entered as Reported by: MINOO YOU on 05/03/221158 Propylene Glycol/Peg 400 (Systane Ultra 0.4-0.3% Eye Drp) 0.3 %-0.4 % Drops, 1 DROP OU UD PRN for DRY EYES, (Reported) Entered as Reported by: MINOO YOU on 05/03/221158 Pumpkin Seed Extract/Soy Germ (Azo Bladder Control Capsule) 300 Mg Capsule, 2 EA PO BID, (Reported) Entered as Reported by: MINOO YOU on 05/03/221158 Terbinafine HCl (Terbinafine) 1 % Cream..g., 1 APPLIC TOP DAILY, (Reported) Entered as Reported by: MINOO YOU on 05/03/221158 [Cranberry Con W/Vitc] 30,000 CAP, 1 EA PO DAILY, (Reported) Entered as Reported by: MINOO YOU on 05/03/221158 [Probiotic] 200 BILLION CAP, 1 EA PO DAILY, (Reported) Entered as Reported by: MINOO YOU on 05/03/221158 [T-3] , 90 MCG PO DAILY, (Reported) Entered as Reported by: MINOO YOU on 05/03/221158 [Ultimate Iron] , 1 EA PO DAILY, (Reported) Entered as Reported by: KELSEY GRIFFITH on 05/02/22 1455 Discontinued Medications Metronidazole (Metronidazole) 1 % Gel..gram., 1 APPLIC TOP HS PRN for SKIN IRRIT ATION, (Reported) Discontinued Reason: No Longer Taking Entered as Reported by: MINOO YOU on 05/03/22 1159 Naproxen (Naproxen) 500 Mg Tablet, 500 MG PO BID, (Reported) Discontinued Reason: No Longer Taking Entered as Reported by: MINOO YOU on 05/03/22 1159 Ondansetron HCl (Ondansetron HCl) 4 Mg Tablet, 4 MG PO Q8H PRN for NAUSEA/VOMITING-1ST LINE, (Reported) Discontinued Reason: No Longer Taking Entered as Reported by: MINOO YOU on 05/03/22 1159 Prednisone (Prednisone) 10 Mg Tab.ds.pk, 10 MG PO DAILY Discontinued Reason: No Longer Taking Prescribed by: DENNIS KENNEDY on 05/04/22 0911 Exam Vital Signs Vital Signs Date Time Temp Pulse Resp B/P (MAP) Pulse Ox O2 Delivery O2 Flow Rate FiO2 05/28/22 15:55 36.6 75 20 169/75 (106) 90 Nasal Cannula 4.00 Physical Exam General: Alert. No acute distress. Well nourished and appears stated age. She is morbidly obese. Eye: Extraocular movements are intact. Conjunctivae are clear. There are no xanthelasma. HENT: Normocephalic. Atraumatic. Carotid pulsations 2/2 without bruits. Neck: Jugular venous pressure does not appear elevated. No thyromegaly appreciated. Respiratory: Lungs are clear to auscultation. Respirations are non-labored. Nallely th sounds are equal. Symmetrical chest wall expansion. Cardiovascular: Normal rate. Regular rhythm. Distant S1/S2. 2/6 systolic ejection murmur. No gallop. Point of maximal impulse is not appear displaced. Good pulses equal in all extremities. 1+ bilateral pretibial edema. Gastrointestinal: Soft. Normal bowel sounds. Skin: Skin turgor is normal. There is no pallor. Musculoskeletal: No kyphosis or scoliosis appreciated. Neurologic: Alert and oriented to person, place, time. Cranial nerves 3-12 appear grossly intact. The patient has good motor tone strength in the upper and lower extremities bilaterally. Psychiatric: Cooperative. Appropriate mood & affect. Labs Laboratory Tests Test 05/28/22 11:08 05/28/22 16:57 Range/Units White Blood Count 6.7 4.3-11.0 10^3/uL Red Blood Count 4.33 3.80-5.11 10^6/uL Hemoglobin 12.6 11.5-16.0 g/dL Hematocrit 40 35-52 % Mean Corpuscular Volume 93 80-99 fL Mean Corpuscular Hemoglobin 29 25-34 pg Mean Corpuscular Hemoglobin Concent 31 L 32-36 g/dL Red Cell Distribution Width 14.9 H 10.0-14.5 % Platelet Count 226 130-400 10^3/uL Mean Platelet Volume 9.0 9.0-12.2 fL Immature Granulocyte % (Auto) 1 % Neutrophils (%) (Auto) 84 H 42-75 % Lymphocytes (%) (Auto) 6 L 12-44 % Monocytes (%) (Auto) 7 0-12 % Eosinophils (%) (Auto) 2 0-10 % Basophils (%) (Auto) 0 0-10 % Neutrophils # (Auto) 5.6 1.8-7.8 10^3/uL Lymphocytes # (Auto) 0.4 L 1.0-4.0 10^3/uL Monocytes # (Auto) 0.5 0.0-1.0 10^3/uL Eosinophils # (Auto) 0.1 0.0-0.3 10^3/uL Basophils # (Auto) 0.0 0.0-0.1 10^3/uL Immature Granulocyte # (Auto) 0.0 0.0-0.1 10^3/uL Neutrophils % (Manual) 86 % Lymphocytes % (Manual) 7 % Monocytes % (Manual) 6 % Eosinophils % (Manual) 1 % Basophils % (Manual) 0 % Band Neutrophils 0 % Blood Morphology Comment NORMAL Prothrombin Time 13.9 12.2-14.7 SEC INR Comment 1.0 0.8-1.4 Sodium Level 138 135-145 MMOL/L Potassium Level 3.5 L 3.6-5.0 MMOL/L Chloride Level 102 98-107 MMOL/L Carbon Dioxide Level 27 21-32 MMOL/L Anion Gap 9 5-14 MMOL/L Blood Urea Nitrogen 5 L 7-18 MG/DL Creatinine 0.60 0.60-1.30 MG/DL Estimat Glomerular Filtration Rate 97 BUN/Creatinine Ratio 8 Glucose Level 99 70-105 MG/DL Calcium Level 9.0 8.5-10.1 MG/DL Corrected Calcium 9.5 8.5-10.1 MG/DL Magnesium Level 1.7 1.6-2.4 MG/DL Total Bilirubin 0.4 0.1-1.0 MG/DL Aspartate Amino Transf (AST/SGOT) 49 H 5-34 U/L Alanine Aminotransferase (ALT/SGPT) 25 0-55 U/L Alkaline Phosphatase 66 40-136 U/L Total Protein 6.2 L 6.4-8.2 GM/DL Albumin 3.4 3.2-4.5 GM/DL Troponin I < 0.028 <0.028 NG/ML Radiology CARDIAC CATHETERIZATION (05/22/2019): 1. No angiographically significant coronary artery disease. 2. Normal global left ventricular systolic function with ejection fraction of approximately 60%. 3. Elevated left ventricular end-diastolic pressure. ECG Impression ECG Comment Sinus rhythm with nonspecific intraventricular conduction delay and nonspecific anterior T wave changes. Diagnosis/Problems Diagnosis/Problems (1) Chest pain Status: Acute Assessment & Plan: Her initial troponin level is negative. The chest discomfort was very brief in nature and occurred after she had been vomiting. There are no ischemic changes on her electrocardiogram. She underwent a cardiac catheterization in 2019 just 3 years ago that showed angiographically normal- appearing coronary arteries. I suspect this is noncardiac chest pain, possibly due to esophageal spasm or some esophageal inflammation related to vomiting. If she has recurrent chest discomfort, her proton pump inhibitor may need to be intensified. There are no indications for any additional cardiac testing at this point in time. I will resume her low strength aspirin. (2) Abnormal electrocardiogram Assessment & Plan: She has a borderline abnormal electrocardiogram with the nonspecific anterior T wave changes but had a cardiac catheterization 3 years ago that showed no significant coronary artery disease. I suspect the electrocardiogram abnormality is due to left ventricular hypertrophy. (3) Chronic heart failure with preserved ejection fraction Assessment & Plan: From what I can gather, the predominant cause of her shortness of breath is her underlying chronic obstructive pulmonary disease. From a volume standpoint, she seems to be reasonably well compensated at this point in time. (4) Pulmonary hypertension Assessment & Plan: She had an echocardiogram earlier this month that showed mild pulmonary hypertension. I suspect this is due to her chronic obstructive pulmonary disease as well as her morbid obesity with chronic hypoventilation. (5) Primary hypertension Assessment & Plan: Resume amlodipine when she can take oral medications. (6) Acute on chronic respiratory failure with hypoxia and hypercapnia Status: Acute Assessment & Plan: She has had some slight worsening of her shortness of breath in the hospital which I suspect is related to her COPD. (7) Morbid obesity Status: Acute Assessment & Plan: She needs to work on weight loss. She has been counseled on this in the past on numerous occasions. MERI CADE JR, MD May 28, 2022 17:44
[2022-05-28 19:03] VITALS: BP 165/75
[2022-05-28] MEDS: PANTOPRAZOLE 40 MG (PROTONIX) VIAL IV SCH (19:58)
[2022-05-28] MEDS: CIPROFLOXACIN IV 400MG/200ML 200 ML IV SCH (19:59)
[2022-05-28] MEDS: metroNIDAZOLE 500MG/100ML IVPB 100 ML IV SCH (21:23)
[2022-05-29] VITALS (14 sets, daily range): BP systolic 149–176; BP diastolic 78–103
[2022-05-29] MEDS: ONDANSETRON 4 MG/2 ML (SDV) Z0FRAN IVP PRN (01:05)
[2022-05-29] MEDS: PROMETHAZINE INJ 25 MG/ML (PHENERGAN) AMP IVP SCH ×8 (04:27→23:51)
[2022-05-29] MEDS: METOCLOPRAMIDE INJ 10 MG/2 ML (REGLAN) IVP SCH ×4 (05:20→23:51)
[2022-05-29] MEDS: LACTATED RINGERS 1,000 ML IV SCH ×2 (05:20→23:52)
[2022-05-29 06:03] LABS: BASOPHILS % (AUTO) 0 % (0-10); EOSINOPHILS % (AUTO) 0 % (0-10); HEMATOCRIT 43 % (35-52); HEMOGLOBIN 13.2 g/dL (11.5-16.0); LYMPHOCYTES # (AUTO) 0.3 10^3/uL (1.0-4.0); LYMPHOCYTES % (AUTO) 4 % (12-44); MEAN CORPUSCULAR HEMOGLOBIN 28 pg (25-34); MEAN CORPUSCULAR HGB CONC 31 g/dL (32-36); MEAN CORPUSCULAR VOLUME 91 fL (80-99); MEAN PLATELET VOLUME 9.3 fL (9.0-12.2); MONOCYTES # (AUTO) 0.4 10^3/uL (0.0-1.0); MONOCYTES % (AUTO) 6 % (0-12); NEUTROPHILS % (AUTO) 90 % (42-75); PLATELET COUNT 222 10^3/uL (130-400); WHITE BLOOD COUNT 7.8 10^3/uL (4.3-11.0)
[2022-05-29 06:27] LABS: INR 1.2 (0.8-1.4); PROTHROMBIN TIME PATIENT 15.5 SEC (12.2-14.7)
[2022-05-29 06:28] LABS: ALBUMIN 3.4 GM/DL (3.2-4.5); POTASSIUM 3.4 MMOL/L (3.6-5.0)
[2022-05-29 06:30] LABS: CALCIUM 8.9 MG/DL (8.5-10.1)
[2022-05-29 06:31] LABS: TOTAL PROTEIN 6.2 GM/DL (6.4-8.2)
[2022-05-29 06:33] LABS: BILIRUBIN,TOTAL 0.6 MG/DL (0.1-1.0)
[2022-05-29 06:35] LABS: CREATININE SERUM 0.61 MG/DL (0.60-1.30)
[2022-05-29 06:38] LABS: MAGNESIUM 1.6 MG/DL (1.6-2.4)
[2022-05-29] MEDS: PANTOPRAZOLE 40 MG (PROTONIX) VIAL IV SCH ×2 (08:38→20:19)
[2022-05-29] MEDS: ASPIRIN E.C. 81 MG (ECOTRIN) TAB PO SCH (08:38)
[2022-05-29] MEDS: CIPROFLOXACIN IV 400MG/200ML 200 ML IV SCH ×2 (08:45→21:46)
[2022-05-29] MEDS: metroNIDAZOLE 500MG/100ML IVPB 100 ML IV SCH ×2 (08:45→20:18)
--- NOTE | 2022-05-29 10:23 | Progress Note - Surgery ---
HEYDI PICKETT 05/29/22 1023: Subjective Date Seen by a Provider: May 29, 2022 Subjective/Events-last exam Pt is lying in bed with nausea throughout interview. SP lap gabi on 05/27. Persistent N/V kept her in the hospital, she reported chest tightness yesterday, Dr. Abraham consulted and does not believe it is cardiac chest pain. No current chest pain, had some tightness throughout night. Pt vomitted last night, dark green color. Pt reports burning and frequent urination, no UA done, abx were started this AM. Last BM was this morning, loose and green. 01/08 abdominal pain in RUQ, incisions are clean, dry, and intact. Pt has not ambulated since surgery. Pt reports hunger but has not eaten since the evening of 05/27. Used incentive spirometer 3x yesterday. Review of Systems General: No Chills, No Night Sweats HEENT: No Head Aches, No Visual Changes Pulmonary: No Dyspnea; Cough Cardiovascular: Chest Pain (intermittent chest tightness, cardiology consulted yesterday); No: Lt Headedness Gastrointestinal: Nausea, Vomiting, Abdominal Pain (01/08, better today) Genitourinary: Dysuria, Frequency; No Hematuria Neurological: No: Confusion Objective Exam Vital Signs Date Time Temp Pulse Resp B/P (MAP) Pulse Ox O2 Delivery O2 Flow Rate FiO2 05/29/22 09:16 156/92 (113) 05/29/22 07:55 36.7 85 18 168/94 (118) 92 Nasal Cannula 2.00 05/29/22 07:28 94 Nasal Cannula 3.00 05/29/22 03:50 37.3 72 16 165/82 (109) 94 Nasal Cannula 3.00 05/29/22 00:09 37.4 80 16 172/81 (111) 93 Nasal Cannula 3.00 05/28/22 23:31 Nasal Cannula 3.50 05/28/22 20:06 Nasal Cannula 3.50 05/28/22 19:03 36.9 72 16 165/75 (105) 94 Nasal Cannula 4.00 05/28/22 15:55 36.6 75 20 169/75 (106) 90 Nasal Cannula 4.00 05/28/22 14:46 36.6 05/28/22 14:16 36.6 05/28/22 11:50 36.6 05/28/22 11:22 36.6 70 18 167/76 (106) 90 Nasal Cannula 3.00 05/28/22 11:20 36.8 05/28/22 10:59 36.8 I & O 05/29/22 07:00 Intake Total 2690 ml Output Total 750 ml Balance 1940 ml Capillary Refill : General Appearance: No Apparent Distress, Other (Nausea in interview) HEENT: PERRL/EOMI; No Scleral Icterus (L), No Scleral Icterus (R) Neck: Non Tender, Supple Respiratory: Lungs Clear, Normal Breath Sounds, No Accessory Muscle Use Cardiovascular: Regular Rate, Rhythm, Normal Peripheral Pulses Peripheral Pulses: 2+ Radial Pulses (R), 2+ Radial Pulses (L) Gastrointestinal: normal bowel sounds, soft, tenderness (RUQ) Extremity: Normal Capillary Refill, Pedal Edema (edema up to knees bl) Neurologic/Psychiatric: Alert, Oriented x3 Skin: Normal Color, Warm/Dry Lymphatic: No Adenopathy Results Lab Laboratory Tests 05/28/22 11:08: White Blood Count 6.7, Red Blood Count 4.33, Hemoglobin 12.6, Hematocrit 40, Mean Corpuscular Volume 93, Mean Corpuscular Hemoglobin 29, Mean Corpuscular Hemoglobin Concent 31L, Red Cell Distribution Width 14.9H, Platelet Count 226, Mean Platelet Volume 9.0, Immature Granulocyte % (Auto) 1, Neutrophils (%) (Auto) 84H, Lymphocytes (%) (Auto) 6L, Monocytes (%) (Auto) 7, Eosinophils (%) (Auto) 2, Basophils (%) (Auto) 0, Neutrophils # (Auto) 5.6, Lymphocytes # (Auto) 0.4L, Monocytes # (Auto) 0.5, Eosinophils # (Auto) 0.1, Basophils # (Auto) 0.0, Immature Granulocyte # (Auto) 0.0, Neutrophils % (Manual) 86, Lymphocytes % (Manual) 7, Monocytes % (Manual) 6, Eosinophils % (Manual) 1, Basophils % (M anual) 0, Band Neutrophils 0, Blood Morphology Comment NORMAL, Prothrombin Time 13.9, INR Comment 1.0, Sodium Level 138, Potassium Level 3.5L, Chloride Level 102, Carbon Dioxide Level 27, Anion Gap 9, Blood Urea Nitrogen 5L, Creatinine 0.60, Estimat Glomerular Filtration Rate 97, BUN/Creatinine Ratio 8, Glucose Level 99, Calcium Level 9.0, Corrected Calcium 9.5, Magnesium Level 1.7, Total Bilirubin 0.4, Aspartate Amino Transf (AST/SGOT) 49H, Alanine Aminotransferase (ALT/SGPT) 25, Alkaline Phosphatase 66, Total Protein 6.2L, Albumin 3.4 05/28/22 16:57: Troponin I < 0.028 05/29/22 05:48: White Blood Count 7.8, Red Blood Count 4.66, Hemoglobin 13.2, Hematocrit 43, Mean Corpuscular Volume 91, Mean Corpuscular Hemoglobin 28, Mean Corpuscular Hemoglobin Concent 31L, Red Cell Distribution Width 14.5, Platelet Count 222, Mean Platelet Volume 9.3, Immature Granulocyte % (Auto) 0, Neutrophils (%) (Auto) 90H, Lymphocytes (%) (Auto) 4L, Monocytes (%) (Auto) 6, Eosinophils (%) (Auto) 0, Basophils (%) (Auto) 0, Neutrophils # (Auto) 7.0, Lymphocytes # (Auto) 0.3L, Monocytes # (Auto) 0.4, Eosinophils # (Auto) 0.0, Basophils # (Auto) 0.0, Immature Granulocyte # (Auto) 0.0, Prothrombin Time 15.5H, INR Comment 1.2, Sodium Level 136, Potassium Level 3.4L, Chloride Level 98, Carbon Dioxide Level 27, Anion Gap 11, Blood Urea Nitrogen 6L, Creatinine 0.61, Estimat Glomerular Filtration Rate 97, BUN/Creatinine Ratio 10, Glucose Level 106H, Calcium Level 8.9, Corrected Calcium 9.4, Magnesium Level 1.6, Total Bilirubin 0.6, Aspartate Amino Transf (AST/SGOT) 45H, Alanine Aminotransferase (ALT/SGPT) 26, Alkaline Phosphatase 65, Total Protein 6.2L, Albumin 3.4, B-Type Natriuretic Peptide 85.6 Microbiology 05/27/22 MRSA Screen - Final, Complete MRSA not isolated Assessment/Plan Assessment/Plan Assessment/Plan POD2 s/p laparoscopic cholecystectomy persistent nausea/vomiting intermittent chest pain negative tropinins and EKG, heart cath in 2019 showing no occlusive disease patient baseline ambulatory status poor. Can be discharged today, pt wants to go home. Continue meds for N/V and pain and follow up if chest pain worsens. Continue to work on ambulation. GAURANG WALLIS DO 05/29/22 1305: Subjective Time Seen by a Provider: 11:29 Subjective/Events-last exam Pt seen and examined, her main complaints are nausea/vomiting and abdominal pain. She is also using O2 and normally does not at home. Nurse is concerned about incision. Review of Systems General: No Chills, No Night Sweats Pulmonary: No Dyspnea; Cough Cardiovascular: Chest Pain (intermittent chest tightness, cardiology consulted yesterday) Gastrointestinal: Nausea, Vomiting, Abdominal Pain (01/08, better today) Genitourinary: Dysuria, Frequency Objective Exam General Appearance: No Apparent Distress, Obese HEENT: PERRL/EOMI; No Scleral Icterus (L), No Scleral Icterus (R); Other (Nasal canula, pt requiring O2) Respiratory: Lungs Clear, Normal Breath Sounds, No Accessory Muscle Use Cardiovascular: Regular Rate, Rhythm, No Murmur Gastrointestinal: soft, tenderness (at supraumbilical incision), other (mild erythema below incision, fullness and ??mass at umbilicus) Extremity: Pedal Edema (edema up to knees bl) Neurologic/Psychiatric: Alert, Oriented x3 Assessment/Plan Assessment/Plan Assessment/Plan Umbilical fullness - r/o incarcerated hernia Respiratory failure - requiring O2 Intractable Nausea and vomiting POD s/p Lap Gabi Intermittent chest pain - no EKG changes, Troponin normal Pt vomiting all night and into this am, she is taking Phenergan which helps a little but nurse states she is refusing Zofran. I feel a fullness at umbilicus, doesn't feel like normal postoperative swelling and therefore I am ordering a CT abd/pelvis. She is also on O2, which is new because she doesn't use it at home. States has "nebulizer, for when COPD acts up", but no home O2. I told her I can't send her home if she requires O2, will have nurse titrate and RT consult. I will try to have pt start taking Zofran and will encourage PO. She needs to use the IS and work with PT. Will keep her at least one more day to work all these things up. Supervisory-Addendum Brief Verification & Attestation Participated in pt care: history, MDM, physical Personally performed: exam, history, MDM, supervision of care Care discussed with: Medical Student Procedures: n/a Verification and Attestation of Medical Student E/M Service A medical student performed and documented this service. I then reviewed and verified all information documented by the medical student and made modifications to such information, when appropriate. I personally performed a physical exam, medical decision making and then discussed any differences between the notes and made revisions as necessary to create one note. Gaurang Wallis , 05/29/22 , 13:15 HEYDI PICKETT May 29, 2022 10:23 GAURANG WALLIS DO May 29, 2022 13:05
[2022-05-29] MEDS ORDERED: amLODIPine 10 MG (NORVASC) TAB PO ONE (10:30)
[2022-05-29] MEDS ORDERED: RT-ALBUTEROL/IPRATROPIUM 3 ML (DUONEB) VIAL INH PRN (11:45)
--- NOTE | 2022-05-29 12:34 | Cardiology Progress Note ---
Progress Note-Cardiology Events since last exam Date Seen by Provider: May 29, 2022 Time Seen by Provider: 12:29 Events since last exam I am following her due to chest pain. She had another brief episode of chest discomfort this morning that lasted only about 10 seconds. This was in the left upper chest. She denies radiation. She denies dyspnea at rest, palpitations, or syncope. No change in her chronic, intermittent bilateral lower extremity edema. Certain portions of this document may have been dictated utilizing voice recognition technology. Inherent to this technology, typographical and grammat ical errors may exist. As much as I am diligent to identify and correct these mistakes, some errors may remain in the document. Vitals Last set of Vitals Signs Vital Signs 05/29/22 05/29/22 11:26 11:58 Temp 37.1 Pulse 89 Resp 18 B/P (MAP) 162/96 (118) Pulse Ox 92 O2 Delivery Nasal Cannula O2 Flow Rate 3.00 FiO2 28 Labs Labs Laboratory Tests 05/29/22 05:48 Exam Vital Signs Vital Signs Date Time Temp Pulse Resp B/P (MAP) Pulse Ox O2 Delivery O2 Flow Rate FiO2 05/29/22 11:58 37.1 89 18 162/96 (118) 92 Nasal Cannula 3.00 05/29/22 11:26 28 Physical Exam General: Alert. No acute distress. She is morbidly obese. Eye: No xanthelasma. HENT: Normocephalic. Neck: Jugular venous pressure does not appear elevated. Respiratory: Lungs are clear to auscultation but decreased at the bases bilaterally.. Respirations are non-labored. Breath sounds are equal. Symmetrical chest wall expansion. Cardiovascular: Normal rate. Regular rhythm. Distant S1/S2. 2/6 systolic ejection murmur. No gallop. 1+ bilateral pretibial edema with some slight erythema of the right parson. Gastrointestinal: Soft. Normal bowel sounds. Skin: Warm. Dry. Neurologic: Alert and oriented to person, place, time. Cranial nerves 3-11 grossly intact. Psychiatric: Cooperative. Appropriate mood & affect. Labs Laboratory Tests Test 05/28/22 16:57 05/29/22 05:48 Range/Units Troponin I < 0.028 <0.028 NG/ML White Blood Count 7.8 4.3-11.0 10^3/uL Red Blood Count 4.66 3.80-5.11 10^6/uL Hemoglobin 13.2 11.5-16.0 g/dL Hematocrit 43 35-52 % Mean Corpuscular Volume 91 80-99 fL Mean Corpuscular Hemoglobin 28 25-34 pg Mean Corpuscular Hemoglobin Concent 31 L 32-36 g/dL Red Cell Distribution Width 14.5 10.0-14.5 % Platelet Count 222 130-400 10^3/uL Mean Platelet Volume 9.3 9.0-12.2 fL Immature Granulocyte % (Auto) 0 % Neutrophils (%) (Auto) 90 H 42-75 % Lymphocytes (%) (Auto) 4 L 12-44 % Monocytes (%) (Auto) 6 0-12 % Eosinophils (%) (Auto) 0 0-10 % Basophils (%) (Auto) 0 0-10 % Neutrophils # (Auto) 7.0 1.8-7.8 10^3/uL Lymphocytes # (Auto) 0.3 L 1.0-4.0 10^3/uL Monocytes # (Auto) 0.4 0.0-1.0 10^3/uL Eosinophils # (Auto) 0.0 0.0-0.3 10^3/uL Basophils # (Auto) 0.0 0.0-0.1 10^3/uL Immature Granulocyte # (Auto) 0.0 0.0-0.1 10^3/uL Prothrombin Time 15.5 H 12.2-14.7 SEC INR Comment 1.2 0.8-1.4 Sodium Level 136 135-145 MMOL/L Potassium Level 3.4 L 3.6-5.0 MMOL/L Chloride Level 98 98-107 MMOL/L Carbon Dioxide Level 27 21-32 MMOL/L Anion Gap 11 5-14 MMOL/L Blood Urea Nitrogen 6 L 7-18 MG/DL Creatinine 0.61 0.60-1.30 MG/DL Estimat Glomerular Filtration Rate 97 BUN/Creatinine Ratio 10 Glucose Level 106 H 70-105 MG/DL Calcium Level 8.9 8.5-10.1 MG/DL Corrected Calcium 9.4 8.5-10.1 MG/DL Magnesium Level 1.6 1.6-2.4 MG/DL Total Bilirubin 0.6 0.1-1.0 MG/DL Aspartate Amino Transf (AST/SGOT) 45 H 5-34 U/L Alanine Aminotransferase (ALT/SGPT) 26 0-55 U/L Alkaline Phosphatase 65 40-136 U/L B-Type Natriuretic Peptide 85.6 <100.0 PG/ML Total Protein 6.2 L 6.4-8.2 GM/DL Albumin 3.4 3.2-4.5 GM/DL Diagnosis/Problems Diagnosis/Problems (1) Chest pain Status: Acute Assessment & Plan: She had negative troponin level. The chest discomfort was very brief in nature and occurred after she had been vomiting. There are no ischemic changes on her electrocardiogram. She underwent a cardiac catheterization in 2019 just 3 years ago that showed angiographically normal- appearing coronary arteries. I suspect this is noncardiac chest pain, possibly due to esophageal spasm or some esophageal inflammation related to vomiting. There are no indications for any additional cardiac testing at this point in time. I resumed her low strength aspirin. (2) Chronic heart failure with preserved ejection fraction Assessment & Plan: From what I can gather, the predominant cause of her shortness of breath is her underlying chronic obstructive pulmonary disease. She has chronic peripheral edema some of which could be related to amlodipine which she takes for hypertension. She may have had some slight increase in the peripheral edema due to intravenous fluid she received during surgery. I will give her 1 dose of intravenous furosemide. (3) Pulmonary hypertension Assessment & Plan: She had an echocardiogram earlier this month that showed mild pulmonary hypertension. I suspect this is due to her chronic obstructive pulmonary disease as well as her morbid obesity with chronic hypoventilation. This will need to be followed longitudinally. (4) Primary hypertension Assessment & Plan: She is now back on her amlodipine. (5) Abnormal electrocardiogram Assessment & Plan: She has a borderline abnormal electrocardiogram with the nonspecific anterior T wave changes but had a cardiac catheterization 3 years ago that showed no significant coronary artery disease. I suspect the el ectrocardiogram abnormality is due to left ventricular hypertrophy. (6) Acute on chronic respiratory failure with hypoxia and hypercapnia Status: Acute Assessment & Plan: She has had some slight worsening of her shortness of breath in the hospital which I suspect is related to her COPD. (7) Morbid obesity Status: Acute Assessment & Plan: She needs to work on weight loss. She has been counseled on this in the past on numerous occasions. MERI CADE JR, MD May 29, 2022 12:34
[2022-05-29] MEDS ORDERED: FUROSEMIDE 40 MG/4 ML INJ (LASIX) IVP ONE (12:45)
[2022-05-29 12:51] LABS: TRIGLYCERIDES 77 MG/DL (<150); VLDL CHOLESTEROL 15 MG/DL (5-40)
[2022-05-29 12:56] LABS: CHOLESTEROL 210 MG/DL (< 200)
[2022-05-29 12:57] LABS: HDL CHOLESTEROL 66 MG/DL (40-60)
--- NOTE | 2022-05-29 14:15 | Diagnostic Imaging Report ---
PROCEDURE: CT abdomen and pelvis without contrast. TECHNIQUE: Multiple contiguous axial images were obtained through the abdomen and pelvis without the use of intravenous contrast. Auto Exposure Controls were utilized during the CT exam to meet ALARA standards for radiation dose reduction. INDICATION: Abdominal pain. Umbilical bulging. COMPARISON: CT abdomen and pelvis without contrast 01/08/2021. FINDINGS: Mild atelectasis and/or scarring in the right lung base is similar to the prior exam. Small amount of free fluid layering along the liver and dependently in the pelvis which is new compared to the prior. Anterior abdominal wall hernia near the umbilicus with a base measuring approximately 3.0 cm containing a loop of distal small bowel. The more proximal small bowel is dilated with an air-fluid level. The more distal small bowel is markedly decompressed. No pneumatosis or portal venous gas. No free intraperitoneal air. Contrast material throughout a normal caliber colon. Moderate colonic diverticulosis. Normal appendix. Cholecystectomy. The liver, pancreas, spleen, adrenals and bladder are negative. Multiple nonobstructing calyceal tip renal stones in both kidneys. No ureteral stones or hydronephrosis. No lymphadenopathy. Burst fracture of L1 and compression fracture of T12 are similar to the prior exam. There remains moderate retropulsion at the T1 level. Spondylotic changes also likely result in high-grade spinal canal stenosis at L5-S1, possibly L3-L4. No acute osseous findings. IMPRESSION: 1. Small bowel obstruction occurring at an anterior abdominal wall hernia containing a loop of distal small bowel. No pneumatosis or portal venous gas. There is a small amount of free fluid in the abdomen which is new compared to the prior. No free intraperitoneal air. 2. Moderate colonic diverticulosis without evidence of active diverticulitis. 3. Stable burst fracture of L1 and compression fracture of T12. 4. Spondylotic changes in the lumbar spine likely result in multilevel high-grade spinal canal stenosis. This could be better evaluated with MRI. Report given to Dr. Wallis at 2:13 PM 05/29/2022/cb Dictated by: Dictated on workstation # [id number]
[2022-05-29] MEDS ORDERED: SUCCINYLCHOLINE INJ 100 MG/5 ML SYR/VIAL ONE (15:15)
[2022-05-29] MEDS ORDERED: fentaNYL INJ 100 MCG/2 ML AMP ONE (15:15)
[2022-05-29] MEDS ORDERED: MIDAZOLAM 2 MG/2 ML (VERSED) VIAL ONE (15:15)
[2022-05-29] MEDS ORDERED: ROCURONIUM 10 MG/ML 5 ML SYRINGE IV ONE (15:15)
[2022-05-29] MEDS ORDERED: proPOfol 200 MG/20 ML (DIPRIVAN) VIAL IV ONE (15:15)
[2022-05-29] MEDS ORDERED: LIDOCAINE PF 2% 5 ML (XYLOCAINE) VIAL ONE (15:15)
[2022-05-29] MEDS ORDERED: BUP/EPI 0.5% 1:200,000 (MARCAINE) 10ML VIAL IJ ONE ×2 (15:29→17:17)
--- NOTE | 2022-05-29 16:07 | Progress Note-Pre Operative ---
Pre-Operative Progress Note Date of Available H&P: May 29, 2022 Date H&P Reviewed: May 29, 2022 Time H&P Reviewed: 15:00 History & Physical: H&P Reviewed, Patient Examed, No changes noted Pre-Operative Diagnosis: sx abd incisional hernia with small bowel in hernia and recurrent nausea/vo FER MICHELLE MD May 29, 2022 16:07
--- NOTE | 2022-05-29 16:48 | Consultation - Hospitalist ---
HPI History of Present Illness: HPI/Chief Complaint Terrie Steele is a 66 year old female with PMH HTN, HLD, hypothyroidism, lymphedema, morbid obesity, uterine cancer s/p hysterectomy, anxiety, depression, bipolar disorder, ADHD, who presented for a scheduled cholecystectomy. She underwent surgery on 05/27. Last night she was having nausea and vomiting. She also developed left sided chest pain with radiation to her left shoulder. She is still feeling nauseous this morning. Her chest and shoulder pain have resolved. She denies shortness of breath. She is still having abdominal pain. Source: patient, family Exam Limitations: no limitations Date Seen 05/29/22 Attending Physician Marcel Toussaint MD PCP Admitting Physician: Attending Physician: Cliff Vail MD Referring Physician Date of Admission Home Medications & Allergies Home Medications Reviewed patient Home Medication Reconciliation performed by pharmacy medication reconciliations body and frame technician and/or nursing. Patients Allergies have been reviewed. 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 Sexually Transmitted Disease: No Bladder Infection, Kidney Stones, UTI-Chronic Gastroesophageal Reflux, Hemorrhoids, Chronic Diarrhea Arthritis, Chronic Back Pain Hypothyroidsim Glaucoma Uterine What Type of Treatment Did You: Surgical Intervention ADD/ADHD, Anxiety, Bipolar, Depression Blood Disorders: No Adverse Reaction/Blood Tranf: No Family Medical History Alcoholism 03 FATHER, Age:96 03 MOTHER, , Age:60 years and older 09 BROTHER, Age:71 09 BROTHER, , Age:40's - 50 09 BROTHER, Age:66 09 BROTHER, Age:62 09 SISTER, Age:59 Cancer 03 MOTHER, , Age:60 years and older 09 BROTHER, , Age:40's - 50 Cataract 03 FATHER, Age:96 Family history: Arthritis 09 SISTER, Age:59 Family history: Gastrointestinal disease 09 BROTHER, Age:62 Family history: Thyroid disorder 09 SISTER, Age:59 Headache 03 FATHER, Age:96 03 MOTHER, , Age:60 years and older 09 BROTHER, Age:71 09 BROTHER, , Age:40's - 50 09 BROTHER, Age:66 09 BROTHER, Age:62 09 SISTER, Age:59 History of drug abuse Visual impairment No Family History of: Abdominal aortic aneurysm Tejinder's disease Aphasia Cancer of colon Chest pain Congenital heart disease Congestive heart failure Cystic fibrosis Dementia Dysphagia Family history: Allergy Family history: Alzheimer's disease Family history: Asthma Family history: Breast disease Family history: Cardiovascular disease Family history: Coronary thrombosis Family history: Diabetes mellitus Family history: Glaucoma Family history: Hypertension Family history: Osteoporosis Hearing loss Heart disease Hereditary disease History of - anemia History of - respiratory disease Human immunodeficiency virus (HIV) seropositivity Hypercholesterolemia Infertile Kidney disease Malignant neoplasm of lung Myocardial infarction Parkinson's disease Prostate cancer Psychotic disorder Seizure disorder Stroke Tuberculosis Review of Systems Constitutional: no symptoms reported EENTM: no symptoms reported Respiratory: no symptoms reported Cardiovascular: chest pain Gastrointestinal: nausea, vomiting Physical Exam Physical Exam Vital Signs Vital Signs - First Documented 05/27/22 05/29/22 10:54 11:26 Temp 36.6 Pulse 69 Resp 20 B/P (MAP) 102/77 (85) Pulse Ox 95 O2 Delivery Room Air FiO2 28 Capillary Refill : Height, Weight, BMI Height: 5'6.00" Weight: 254lbs. 0oz. [id number]; 47.82 BMI Method:Stated General Appearance: No Apparent Distress, Obese HEENT: PERRL/EOMI, Pharynx Normal Neck: Normal Inspection, Supple Respiratory: Lungs Clear, Normal Breath Sounds, No Respiratory Distress Cardiovascular: Regular Rate, Rhythm, No Murmur Gastrointestinal: Soft, Abnormal Bowel Sounds, Tenderness Extremity: Pedal Edema Neurologic/Psychiatric: Alert, Oriented x3 Skin: Normal Color, Warm/Dry Results Results/Procedures Labs Laboratory Tests 05/28/22 11:08 05/29/22 05:48 Patient resulted labs reviewed. Imaging: Reviewed Imaging Report Assessment/Plan Assessment and Plan Assess & Plan/Chief Complaint Gallstones s/p laparoscopic cholecystectomy Nausea and vomiting Incarcerated umbilical hernia Surgery primary Pain regimen Antiemetics NPO Planning for surgical hernia repair Chest pain Likely postoperative pain Troponin negative Cardiology consulted HTN HLD Depression Anxiety Bipolar disorder Lymphedema Continue home meds as able DVT prophylaxis: SCDs Diagnosis/Problems Diagnosis/Problems (1) S/P laparoscopic cholecystectomy Status: Acute (2) Incarcerated umbilical hernia Status: Acute (3) Gallstones Status: Acute (4) Chest pain Status: Acute POP CARLSON MD May 29, 2022 16:48
[2022-05-29] MEDS ORDERED: LACTATED RINGERS 1,000 ML IV PRN (17:30)
[2022-05-29] MEDS ORDERED: GLYCOPYRROLATE 0.2 MG/ML (ROBINUL) 2 ML VIAL ONE (17:44)
[2022-05-29] MEDS ORDERED: NEOSTIGMINE (BLOXIVERZ ) 1 MG/1ML 10 ML VIAL ONE (17:45)
[2022-05-29] MEDS ORDERED: SUGAMMADEX 500 MG/5 ML VIAL (BRIDION) IV ONE (17:55)
[2022-05-29] MEDS ORDERED: SEVOFLURANE (ULTANE) 15 ML INHAL SOLN ONE (18:01)
[2022-05-29] MEDS ORDERED: morphine INJ 10 MG/ML 1ML (SYR OR VIAL) IVP ONE (18:15)
[2022-05-29] MEDS ORDERED: ONDANSETRON 4 MG/2 ML (SDV) Z0FRAN IVP PRN (18:15)
[2022-05-29] MEDS ORDERED: MEPERIDINE (DEMEROL) INJ 50 MG/ML IVP ONE (18:15)
[2022-05-29] MEDS ORDERED: PROMETHAZINE INJ 25 MG/ML (PHENERGAN) AMP IVP ONE (18:15)
[2022-05-29] MEDS ORDERED: HYDROmorphone 2 MG/ML VIAL (DILAUDID) IV ONE (18:15)
[2022-05-29] MEDS ORDERED: morphine INJ 10 MG/ML 1ML (SYR OR VIAL) ONE (18:16)
[2022-05-29] MEDS: RT-ALBUTEROL/IPRATROPIUM 3 ML (DUONEB) VIAL INH SCH (19:59)
[2022-05-29] MEDS: ALPRAZolam 0.5 MG (XANAX) TAB PO SCH (20:19)
[2022-05-29] MEDS: OXYBUTYNIN (DITROPAN) 5 MG TAB PO SCH (20:19)
[2022-05-29] MEDS: OXcarbazepine (TRILEPTAL) 300 MG TAB PO SCH (20:28)
[2022-05-29] MEDS: HYDROcodone/APAP 7.5 MG/325 MG (LORTAB, LORCET PLUS) TABLET PO PRN (23:51)
[2022-05-30] VITALS (8 sets, daily range): BP systolic 105–175; BP diastolic 54–92
--- NOTE | 2022-05-30 00:31 | OPERATIVE REPORT ---
DATE OF SERVICE: 05/29/2022 ATTENDING PRIMARY CARE PHYSICIAN: Marcel Toussaint MD PREOPERATIVE DIAGNOSIS: Incarcerated ventral abdominal incisional hernia. POSTOPERATIVE DIAGNOSES: Incarcerated ventral abdominal incisional hernia with viable small bowel. PROCEDURE: Mini laparotomy, reduction of small bowel, repair of hernia with an 8 cm coated polypropylene mesh. SURGEON: Fer Michelle MD. GEOPHYSICS PROFESSOR: Rasta Wallis DO. ANESTHESIA: General endotracheal. ESTIMATED BLOOD LOSS: Minimal. FINDINGS: Large recurrent defect from his previous incision. She had an extremely large gallbladder as measured at 6 inches. There was no contamination. She had persistent nausea and vomiting and also developed an outpouching in the umbilical incision site and a CT scan was performed, which did show hernia with small bowel within the hernia sac. DESCRIPTION OF PROCEDURE: The patient was brought to the operating room, laid supine on the table. After adequate IV pain and sedative medications and general endotracheal intubation, the abdomen was prepped and draped in standard surgical fashion. A 0.5% Marcaine with epinephrine was then used to anesthetize the overlying skin along the previous supraumbilical port site and the skin was opened with gentle retraction. Subcutaneous tissue was then again dissected with finger dissection. The hernia sac was identified as well as small bowel. Small bowel was peristalsing and pink and viable. This was reduced into the peritoneal cavity. The fascial defect was approximately 2 cm in size. We then proceeded to clear off a rim of strong fascia around the fascial defect. Once this was performed, an 8 cm coated polypropylene mesh was then placed into the defect and sutured transfascially to the mesh using interrupted 0 Prolene sutures with visualization of good hemostasis. The subcutaneous tissue was then reapproximated using 3-0 Vicryl interrupted sutures and the umbilicus was imbricated and sutured to the fascia. The skin was then stapled. Wound was then cleaned and covered with tonsil sponges followed by 4 x 4 gauze followed by a large abdominal binder. Dr. Wallis was involved with all the integral parts of the surgery, retraction, hemostasis as well as closures. The patient tolerated the procedure well. We will admit her back to the general surgical floor. When she is feeling better, we will start a clear liquid diet and slowly advance as tolerated. She is also nonambulatory due to degenerative joint disease and morbid obesity. Due to this, she has a high risk of reoccurring hernias. We will consult social media marketing specialist to see what the potential next step for her will be because she likely will need further help to proceed with the necessary activities of daily living including having bowel movements and urination as well as sitting upright into a chair, ambulating and prevention of DVTs as well as pneumonia and atelectasis. For now, we will continue with IV and oral pain medication and again start clear liquids and slowly advance as tolerated. Job ID: [id number] DocumentID: [id number] Dictated Date: 05/29/2022 17:48:33 It Application Development Manager Date: 05/29/2022 20:56:50 Dictated By: FER MICHELLE MD
[2022-05-30] MEDS: PROMETHAZINE INJ 25 MG/ML (PHENERGAN) AMP IVP SCH ×5 (02:24→14:13)
[2022-05-30] MEDS: METOCLOPRAMIDE INJ 10 MG/2 ML (REGLAN) IVP SCH ×4 (05:56→22:58)
[2022-05-30 06:12] LABS: BASOPHILS % (AUTO) 0 % (0-10); EOSINOPHILS # (AUTO) 0.3 10^3/uL (0.0-0.3); EOSINOPHILS % (AUTO) 4 % (0-10); HEMATOCRIT 38 % (35-52); HEMOGLOBIN 12.1 g/dL (11.5-16.0); LYMPHOCYTES # (AUTO) 0.5 10^3/uL (1.0-4.0); LYMPHOCYTES % (AUTO) 7 % (12-44); MEAN CORPUSCULAR HEMOGLOBIN 29 pg (25-34); MEAN CORPUSCULAR HGB CONC 32 g/dL (32-36); MEAN CORPUSCULAR VOLUME 91 fL (80-99); MEAN PLATELET VOLUME 9.7 fL (9.0-12.2); MONOCYTES % (AUTO) 13 % (0-12); NEUTROPHILS # (AUTO) 5.9 10^3/uL (1.8-7.8); NEUTROPHILS % (AUTO) 76 % (42-75); PLATELET COUNT 238 10^3/uL (130-400); WHITE BLOOD COUNT 7.8 10^3/uL (4.3-11.0)
[2022-05-30 06:17] LABS: INR 1.2 (0.8-1.4); PROTHROMBIN TIME PATIENT 15.8 SEC (12.2-14.7)
[2022-05-30 06:18] LABS: ALBUMIN 3.3 GM/DL (3.2-4.5); POTASSIUM 2.9 MMOL/L (3.6-5.0)
[2022-05-30 06:20] LABS: CALCIUM 8.6 MG/DL (8.5-10.1)
[2022-05-30 06:21] LABS: TOTAL PROTEIN 5.7 GM/DL (6.4-8.2)
[2022-05-30 06:23] LABS: BILIRUBIN,TOTAL 0.8 MG/DL (0.1-1.0)
[2022-05-30 06:24] LABS: CREATININE SERUM 0.61 MG/DL (0.60-1.30)
[2022-05-30 06:27] LABS: MAGNESIUM 1.5 MG/DL (1.6-2.4)
[2022-05-30] MEDS: HYDROcodone/APAP 7.5 MG/325 MG (LORTAB, LORCET PLUS) TABLET PO PRN ×2 (06:42→14:19)
[2022-05-30] MEDS: RT-ALBUTEROL/IPRATROPIUM 3 ML (DUONEB) VIAL INH SCH ×4 (07:30→18:58)
[2022-05-30] MEDS: UMECLIDINIUM BROMIDE (INCRUSE ELLIPTA) 7'S IH SCH (07:30)
[2022-05-30] MEDS: CIPROFLOXACIN IV 400MG/200ML 200 ML IV SCH ×2 (08:29→20:42)
[2022-05-30] MEDS: ASPIRIN E.C. 81 MG (ECOTRIN) TAB PO SCH (08:30)
[2022-05-30] MEDS: amLODIPine 5 MG (NORVASC) TAB PO SCH (08:30)
[2022-05-30] MEDS: ALPRAZolam 0.5 MG (XANAX) TAB PO SCH ×2 (08:30→20:42)
[2022-05-30] MEDS: PANTOPRAZOLE 40 MG (PROTONIX) VIAL IV SCH ×2 (08:30→20:42)
[2022-05-30] MEDS ORDERED: hydrALAZINE (APESOLINE) 20 MG/ML VIAL IV PRN (08:45)
[2022-05-30] MEDS: ONDANSETRON 4 MG/2 ML (SDV) Z0FRAN IVP PRN ×2 (08:50→12:08)
--- NOTE | 2022-05-30 09:43 | Anesthesia-General Post-Op ---
General Patient Condition Mental Status/LOC: Same as Preop Cardiovascular: Satisfactory Nausea/Vomiting: Absent Respiratory: Satisfactory Pain: Controlled Complications: Absent Post Op Complications Complications None Follow Up Care/Instructions Patient Instructions None needed. Anesthesia/Patient Condition Patient Condition Patient is doing well, no complaints, stable vital signs, no apparent adverse anesthesia problems. No complications reported per nursing. POLA CUNNINGHAM CRNA May 30, 2022 09:43
--- NOTE | 2022-05-30 09:47 | Progress Note - Surgery ---
NIEVESHEYDI 05/30/22 0947: Subjective Date Seen by a Provider: May 30, 2022 Subjective/Events-last exam S/P cholecystectomy and incisional hernia repair. Pt is lying in bed comfortably. States she "feels better" since the hernia surgery. 5/10 pain around umbilicus described as sore. Diffuse abdominal tenderness on palpation. Pt reports nausea but no vomit. Had water after surgery and this morning. Requesting advancement of diet. Pt told me she had a BM but could not remember if it was before or after her surgery. Spoke with nurse and looked in chart to confirm patient had BM last evening after hernia repair. Catheter draining dark yellow urine. Nurse informed me of confusion last night at 4am. Pt called the police because she believed people were at her house attempting to collect money from her. Pt says she feels better this AM and does not seemed confused in the interview. Home meds have been resumed. Nurse is concerned that phenergan could be contributing to the confusion and would like to ask Dr Wallis about relying on the zofran for nausea control. Incision is covered with wrap and bandage, did not remove to examine incision. Review of Systems General: No Chills, No Night Sweats; Appetite (requesting diet advancement) HEENT: No Head Aches, No Visual Changes Pulmonary: No Dyspnea, No Cough Cardiovascular: No: Chest Pain, Lt Headedness Gastrointestinal: Nausea, Abdominal Pain (5/10 umbilicus); No: Vomiting (none since surgery) Genitourinary: No Hematuria Musculoskeletal: arm pain (right arm is covered bc patient IV site was sore) Neurological: Confusion (4am episode noted in HPI, seems resolved during interview); No: Change in speech Objective Exam Vital Signs Date Time Temp Pulse Resp B/P (MAP) Pulse Ox O2 Delivery O2 Flow Rate FiO2 05/30/22 08:00 36.7 94 16 175/85 (115) 92 Nasal Cannula 2.00 05/30/22 07:30 95 Nasal Cannula 2.00 05/30/22 04:48 37.0 86 18 168/79 (108) 93 Nasal Cannula 2.00 05/30/22 03:43 37.2 84 16 172/81 (111) 93 Nasal Cannula 2.00 05/30/22 01:27 Nasal Cannula 2.00 05/30/22 00:00 36.9 79 16 150/76 (100) 96 Nasal Cannula 3.00 05/29/22 20:30 Nasal Cannula 3.00 05/29/22 20:21 37.0 84 18 149/78 (101) 94 Nasal Cannula 1.00 05/29/22 19:59 98 Nasal Cannula 2.00 05/29/22 18:55 Nasal Cannula 1.00 05/29/22 18:55 37.0 18 176/91 (119) 94 OxyMask 1.00 05/29/22 18:50 OxyMask 1.00 05/29/22 18:50 18 175/82 (113) 94 OxyMask 1.00 05/29/22 18:42 OxyMask 1.00 05/29/22 18:40 18 176/93 (120) 93 OxyMask 1.00 05/29/22 18:36 OxyMask 1.00 05/29/22 18:35 OxyMask 2.00 05/29/22 18:30 18 176/98 (124) 95 OxyMask 2.00 05/29/22 18:30 OxyMask 2.00 05/29/22 18:20 OxyMask 4.00 05/29/22 18:20 20 159/95 (116) 99 OxyMask 4.00 05/29/22 18:09 22 171/98 (122) 96 OxyMask 6.00 05/29/22 18:05 OxyMask 6.00 05/29/22 18:05 37.4 24 173/103 (126) 97 OxyMask 6.00 05/29/22 11:58 37.1 89 18 162/96 (118) 92 Nasal Cannula 3.00 05/29/22 11:26 36.7 85 92 28 I & O 05/30/22 07:00 Intake Total 2950 ml Output Total 3025 ml Balance -75 ml Capillary Refill : General Appearance: No Apparent Distress, Obese HEENT: PERRL/EOMI; No Scleral Icterus (L), No Scleral Icterus (R) Neck: Non Tender, Supple Respiratory: Lungs Clear, Normal Breath Sounds, No Respiratory Distress Cardiovascular: Regular Rate, Rhythm, Normal Peripheral Pulses Peripheral Pulses: 2+ Radial Pulses (R), 2+ Radial Pulses (L) Gastrointestinal: soft, tenderness (at supraumbilical incision) Extremity: Normal Capillary Refill, No Calf Tenderness Neurologic/Psychiatric: Alert, Oriented x3; No Facial Droop; Other (episode of confusion noted in HPI) Skin: Normal Color, Warm/Dry Results Lab Laboratory Tests 05/30/22 05:16: White Blood Count 7.8, Red Blood Count 4.16, Hemoglobin 12.1, Hematocrit 38, Mean Corpuscular Volume 91, Mean Corpuscular Hemoglobin 29, Mean Corpuscular Hemoglobin Concent 32, Red Cell Distribution Width 14.6H, Platelet Count 238, Mean Platelet Volume 9.7, Immature Granulocyte % (Auto) 0, Neutrophils (%) (Auto) 76H, Lymphocytes (%) (Auto) 7L, Monocytes (%) (Auto) 13H, Eosinophils (%) (Auto) 4, Basophils (%) (Auto) 0, Neutrophils # (Auto) 5.9, Lymphocytes # (Auto) 0.5L, Monocytes # (Auto) 1.0, Eosinophils # (Auto) 0.3, Basophils # (Auto) 0.0, Immature Granulocyte # (Auto) 0.0, Prothrombin Time 15.8H, INR Comment 1.2, Sodium Level 134L, Potassium Level 2.9L, Chloride Level 94L, Carbon Dioxide Level 30, Anion Gap 10, Blood Urea Nitrogen 6L, Creatinine 0.61, Estimat Glomerular Filtration Rate 97, BUN/Creatinine Ratio 10, Glucose Level 95, Calcium Level 8.6, Corrected Calcium 9.2, Magnesium Level 1.5L, Total Bilirubin 0.8, Aspartate Amino Transf (AST/SGOT) 26, Alanine Aminotransferase (ALT/SGPT) 20, Alkaline Phosphatase 63, Total Protein 5.7L, Albumin 3.3 Microbiology 05/27/22 MRSA Screen - Final, Complete MRSA not isolated Assessment/Plan Assessment/Plan Assessment/Plan Is/p incisional hernia repair pod1 Respiratory failure - requiring O2 Intractable Nausea and vomiting, improving POD3 s/p Lap Gabi Intermittent chest pain - no EKG changes, Troponin normal Confusion- seems resolved Pt pain controlled. Still complaining of Nausea, no vomit. Consider using zofran for control and lowering phenergan use due to confusion, home psych meds resum ed. Still on 2LNC. Not ambulating other than to comode, baseline ambulation is low. No longer complaining of chest pain. Advance to liquid diet and monitor toleration. Continue IV pain medication prn. Continue metronidazole and ciprofloxacin. PT to maximize ambulation. GAURANG WALLIS DO 05/30/22 1406: Subjective Time Seen by a Provider: 12:59 Subjective/Events-last exam Pt seen and examined, states she is feeling much better today. Tolerating clears, nurse stated she had some confusion last night. Review of Systems General: No Chills, No Night Sweats; Appetite (requesting diet advancement) Pulmonary: No Dyspnea, No Cough Cardiovascular: No: Chest Pain Gastrointestinal: Nausea, Abdominal Pain (5/10 umbilicus); No: Vomiting (none since surgery) Musculoskeletal: arm pain (right arm is covered bc patient IV site was sore) Neurological: Confusion (4am episode noted in HPI, seems resolved during interview); No: Change in speech Objective Exam General Appearance: No Apparent Distress, Obese Respiratory: Lungs Clear, Normal Breath Sounds, No Respiratory Distress Cardiovascular: Regular Rate, Rhythm Gastrointestinal: soft, tenderness (at supraumbilical incision), other (incision c/d/i, bruising around ) Neurologic/Psychiatric: Alert, Oriented x3 Assessment/Plan Assessment/Plan Assessment/Plan S/P incisional hernia repair pod1 Respiratory failure - requiring O2 Intractable Nausea and vomiting, improving POD3 s/p Lap Gabi Intermittent chest pain - no EKG changes, Troponin normal Confusion- seems resolved Pt pain controlled. Still complaining of Nausea, no vomit. Consider using zofran for control and lowering phenergan use due to confusion, home psych meds resumed. Still on 2LNC. Not ambulating other than to comode, baseline ambulation is low. No longer complaining of chest pain. Advance to liquid diet and monitor toleration. Continue IV pain medication prn. Continue metronidazole and cipr ofloxacin. PT to maximize ambulation. Supervisory-Addendum Brief Verification & Attestation Participated in pt care: history, MDM, physical Personally performed: exam, history, MDM, supervision of care Care discussed with: Medical Student Procedures: n/a Verification and Attestation of Medical Student E/M Service A medical student performed and documented this service. I then reviewed and verified all information documented by the medical student and made modifications to such information, when appropriate. I personally performed a physical exam, medical decision making and then discussed any differences between the notes and made revisions as necessary to create one note. Gaurang Wallis , 05/30/22 , 14:06 HEYDI PICKETT May 30, 2022 09:47 GAURANG WALLIS DO May 30, 2022 14:06
[2022-05-30] MEDS: metroNIDAZOLE 500MG/100ML IVPB 100 ML IV SCH ×2 (10:06→20:42)
--- NOTE | 2022-05-30 13:19 | Cardiology Progress Note ---
Progress Note-Cardiology Events since last exam Date Seen by Provider: May 30, 2022 Time Seen by Provider: 13:15 Events since last exam We are following her due to chest pain. She normally follows with one of my partners, Dr. Torres. She denies any further chest pain over the past 24 hours. On 05/29 she went back to the operating room due to an incarcerated incisional hernia which was repaired. She is now on a full liquid diet. She still has some nausea but denies any further vomiting. She denies dyspnea at rest, palpitations, syncope, or ankle edema. Vitals Last set of Vitals Signs Vital Signs 05/29/22 05/30/22 11:26 11:12 Temp 36.5 Pulse 93 Resp 16 B/P (MAP) 149/70 (96) Pulse Ox 91 O2 Delivery Nasal Cannula O2 Flow Rate 2.00 FiO2 28 Labs Labs Laboratory Tests 05/30/22 05:16 Exam Vital Signs Vital Signs Date Time Temp Pulse Resp B/P (MAP) Pulse Ox O2 Delivery O2 Flow Rate FiO2 05/30/22 11:12 36.5 93 16 149/70 (96) 91 Nasal Cannula 2.00 05/29/22 11:26 28 Physical Exam General: Alert. No acute distress. She is morbidly obese. Eye: No xanthelasma. HENT: Normocephalic. Neck: Jugular venous pressure does not appear elevated. Respiratory: Lungs are clear to auscultation but decreased at the bases bilaterally. Respirations are non-labored. Breath sounds are equal. Symmetrical chest wall expansion. Cardiovascular: Normal rate. Regular rhythm. 2/6 systolic ejection murmur. No gallop. No edema. Gastrointestinal: Soft. Normal bowel sounds. Skin: Warm. Dry. Neurologic: Alert and oriented to person, place, time. Cranial nerves 3-11 grossly intact. Psychiatric: Cooperative. Appropriate mood & affect. Labs Laboratory Tests Test 05/30/22 05:16 Range/Units White Blood Count 7.8 4.3-11.0 10^3/uL Red Blood Count 4.16 3.80-5.11 10^6/uL Hemoglobin 12.1 11.5-16.0 g/dL Hematocrit 38 35-52 % Mean Corpuscular Volume 91 80-99 fL Mean Corpuscular Hemoglobin 29 25-34 pg Mean Corpuscular Hemoglobin Concent 32 32-36 g/dL Red Cell Distribution Width 14.6 H 10.0-14.5 % Platelet Count 238 130-400 10^3/uL Mean Platelet Volume 9.7 9.0-12.2 fL Immature Granulocyte % (Auto) 0 % Neutrophils (%) (Auto) 76 H 42-75 % Lymphocytes (%) (Auto) 7 L 12-44 % Monocytes (%) (Auto) 13 H 0-12 % Eosinophils (%) (Auto) 4 0-10 % Basophils (%) (Auto) 0 0-10 % Neutrophils # (Auto) 5.9 1.8-7.8 10^3/uL Lymphocytes # (Auto) 0.5 L 1.0-4.0 10^3/uL Monocytes # (Auto) 1.0 0.0-1.0 10^3/uL Eosinophils # (Auto) 0.3 0.0-0.3 10^3/uL Basophils # (Auto) 0.0 0.0-0.1 10^3/uL Immature Granulocyte # (Auto) 0.0 0.0-0.1 10^3/uL Prothrombin Time 15.8 H 12.2-14.7 SEC INR Comment 1.2 0.8-1.4 Sodium Level 134 L 135-145 MMOL/L Potassium Level 2.9 L 3.6-5.0 MMOL/L Chloride Level 94 L 98-107 MMOL/L Carbon Dioxide Level 30 21-32 MMOL/L Anion Gap 10 5-14 MMOL/L Blood Urea Nitrogen 6 L 7-18 MG/DL Creatinine 0.61 0.60-1.30 MG/DL Estimat Glomerular Filtration Rate 97 BUN/Creatinine Ratio 10 Glucose Level 95 70-105 MG/DL Calcium Level 8.6 8.5-10.1 MG/DL Corrected Calcium 9.2 8.5-10.1 MG/DL Magnesium Level 1.5 L 1.6-2.4 MG/DL Total Bilirubin 0.8 0.1-1.0 MG/DL Aspartate Amino Transf (AST/SGOT) 26 5-34 U/L Alanine Aminotransferase (ALT/SGPT) 20 0-55 U/L Alkaline Phosphatase 63 40-136 U/L Total Protein 5.7 L 6.4-8.2 GM/DL Albumin 3.3 3.2-4.5 GM/DL Diagnosis/Problems Diagnosis/Problems (1) Chest pain Status: Acute Assessment & Plan: Exact etiology unclear. She had negative troponin level. The chest discomfort was very brief in nature and occurred after she had been vomiting. There are no ischemic changes on her electrocardiogram. She underwent a cardiac catheterization in 2019 just 3 years ago that showed mahesh ographically normal-appearing coronary arteries. I suspect this is noncardiac chest pain, possibly due to esophageal spasm or some esophageal inflammation related to vomiting. There are no indications for any additional cardiac testing at this point in time. I resumed her low strength aspirin. (2) Chronic heart failure with preserved ejection fraction Assessment & Plan: From what I can gather, the predominant cause of her shortness of breath is her underlying chronic obstructive pulmonary disease. She has chronic peripheral edema some of which could be related to amlodipine which she takes for hypertension. She may have had some slight increase in the peripheral edema due to intravenous fluid she received during surgery. I gave her 1 dose of intravenous furosemide on 05/29. (3) Pulmonary hypertension Assessment & Plan: She had an echocardiogram earlier this month that showed mild pulmonary hypertension. I suspect this is due to her chronic obstructive pulmonary disease as well as her morbid obesity with chronic hypoventilation. This will need to be followed longitudinally. (4) Primary hypertension Assessment & Plan: She is now back on her amlodipine. Blood pressures are intermittently elevated. If this persists, she may need some adjustment to her antihypertensive medication. (5) Abnormal electrocardiogram Assessment & Plan: She has a borderline abnormal electrocardiogram with the nonspecific anterior T wave changes but had a cardiac catheterization 3 years ago that showed no significant coronary artery disease. I suspect the electrocardiogram abnormality is due to left ventricular hypertrophy. (6) Acute on chronic respiratory failure with hypoxia and hypercapnia Status: Acute Assessment & Plan: She has had some slight worsening of her shortness of breath in the hospital which I suspect is related to her COPD. (7) Morbid obesity Status: Acute Assessment & Plan: She needs to work on weight loss. She has been counseled on this in the past on numerous occasions. MERI CADE JR, MD May 30, 2022 13:19
[2022-05-30] MEDS ORDERED: PATIENT MAY USE OWN MED,SINGLE MED PO SCH (13:45)
--- NOTE | 2022-05-30 16:40 | Progress Note - Hospitalist ---
Subjective HPI/CC On Admission Date Seen by Provider: May 30, 2022 Time Seen by Provider: 10:30 Terrie Steele is a 66 year old female with PMH HTN, HLD, hypothyroidism, lymphedema, morbid obesity, uterine cancer s/p hysterectomy, anxiety, depression, bipolar disorder, ADHD, who presented for a scheduled cholecystectomy. She underwent surgery on 05/27. Last night she was having nausea and vomiting. She also developed left sided chest pain with radiation to her left shoulder. She is still feeling nauseous this morning. Her chest and shoulder pain have resolved. She denies shortness of breath. She is still having abdominal pain. Subjective/Events-last exam She is feeling better. She is still a little nauseous. Her pain is improved. Objective Exam Vital Signs Vital Signs Date Time Temp Pulse Resp B/P (MAP) Pulse Ox O2 Delivery O2 Flow Rate FiO2 05/30/22 16:00 36.8 94 20 134/76 (95) 92 Nasal Cannula 2.00 2.00 05/29/22 11:26 28 Capillary Refill : General Appearance: No Apparent Distress, Obese Respiratory: Lungs Clear, No Respiratory Distress Cardiovascular: Regular Rate, Rhythm, No Murmur Gastrointestinal: Normal Bowel Sounds, Soft, Tenderness Extremity: Normal Inspection, Pedal Edema Neurologic/Psychiatric: Alert, Normal Mood/Affect Skin: Normal Color, Warm/Dry Results/Procedures Lab Laboratory Tests 05/30/22 05:16 Patient resulted labs reviewed. Imaging: Reviewed Imaging Report Assessment/Plan Assessment and Plan Assess & Plan/Chief Complaint Gallstones s/p laparoscopic cholecystectomy Nausea and vomiting Incarcerated umbilical hernia Surgery primary s/p laparoscopic cholecystectomy 05/27 Pain regimen Antiemetics s/p surgical repair of incarcerated hernia 05/29 Clear liquids PT/OT IRU evaluation Chest pain Troponin negative Cardiology following HTN HLD Depression Anxiety Bipolar disorder Lymphedema Continue home meds as able DVT prophylaxis: SCDs Diagnosis/Problems Diagnosis/Problems (1) S/P laparoscopic cholecystectomy Status: Acute (2) Incarcerated umbilical hernia Status: Acute (3) Gallstones Status: Acute (4) Chest pain Status: Resolved (5) S/P hernia surgery Status: Acute POP CARLSON MD May 30, 2022 16:40
[2022-05-30] MEDS ORDERED: KCL 20 MEQ TAB (K-DUR) PO ONE (16:45)
[2022-05-30] MEDS: MAGNESIUM 1 GM/100 ML IVPB 100 ML IV SCH ×3 (17:08→19:40)
[2022-05-30] MEDS: POTASSIUM CL 10MEQ/50ML IVPB 50 ML IV SCH ×4 (17:08→20:42)
[2022-05-30] MEDS: LACTATED RINGERS 1,000 ML IV SCH ×2 (18:38→21:59)
[2022-05-30] MEDS: OXYBUTYNIN (DITROPAN) 5 MG TAB PO SCH (20:42)
[2022-05-30] MEDS: OXcarbazepine (TRILEPTAL) 300 MG TAB PO SCH (20:42)
[2022-05-30] MEDS: ASENAPINE 10 MG SL SCH (20:43)
[2022-05-31 04:00] VITALS: BP 134/63
[2022-05-31] MEDS: METOCLOPRAMIDE INJ 10 MG/2 ML (REGLAN) IVP SCH (05:36)
[2022-05-31 05:51] LABS: BASOPHILS % (AUTO) 0 % (0-10); EOSINOPHILS # (AUTO) 0.5 10^3/uL (0.0-0.3); EOSINOPHILS % (AUTO) 7 % (0-10); HEMATOCRIT 36 % (35-52); HEMOGLOBIN 11.3 g/dL (11.5-16.0); LYMPHOCYTES # (AUTO) 0.6 10^3/uL (1.0-4.0); LYMPHOCYTES % (AUTO) 8 % (12-44); MEAN CORPUSCULAR HEMOGLOBIN 29 pg (25-34); MEAN CORPUSCULAR HGB CONC 31 g/dL (32-36); MEAN CORPUSCULAR VOLUME 91 fL (80-99); MEAN PLATELET VOLUME 9.8 fL (9.0-12.2); MONOCYTES % (AUTO) 14 % (0-12); NEUTROPHILS # (AUTO) 5.3 10^3/uL (1.8-7.8); NEUTROPHILS % (AUTO) 72 % (42-75); PLATELET COUNT 201 10^3/uL (130-400); WHITE BLOOD COUNT 7.4 10^3/uL (4.3-11.0)
[2022-05-31 06:08] LABS: POTASSIUM 3.8 MMOL/L (3.6-5.0)
[2022-05-31 06:09] LABS: CALCIUM 8.2 MG/DL (8.5-10.1)
[2022-05-31 06:10] LABS: TOTAL PROTEIN 5.3 GM/DL (6.4-8.2)
[2022-05-31 06:11] LABS: INR 1.3 (0.8-1.4); PROTHROMBIN TIME PATIENT 16.5 SEC (12.2-14.7)
[2022-05-31 06:12] LABS: BILIRUBIN,TOTAL 0.5 MG/DL (0.1-1.0)
[2022-05-31 06:14] LABS: CREATININE SERUM 0.6 MG/DL (0.60-1.30)
[2022-05-31] MEDS: RT-ALBUTEROL/IPRATROPIUM 3 ML (DUONEB) VIAL INH SCH ×2 (07:04→10:52)
[2022-05-31] MEDS: UMECLIDINIUM BROMIDE (INCRUSE ELLIPTA) 7'S IH SCH (07:04)
--- NOTE | 2022-05-31 07:54 | Progress Note - Cardiology ---
Cardiology SOAP Progress Note Subjective: Sitting up in recliner at the bedside No c/o CP, SOB or palpitations C/O abd discomfort (incisional) Objective: I&O/Vital Signs 05/30/22 05/31/22 05/31/22 05/31/22 23:29 04:00 07:04 08:01 Temp 36.8 37.4 37.0 Pulse 71 84 81 Resp 18 18 18 B/P (MAP) 105/54 (71) 134/63 (86) 136/72 (93) Pulse Ox 92 93 92 92 O2 Delivery Nasal Cannula Nasal Cannula Nasal Cannula Nasal Cannula O2 Flow Rate 2.00 3.00 3.00 3.00 05/31/22 00:00 Intake Total 3670 ml Output Total 1600 ml Balance 2070 ml Weight (Pounds): 254 Weight (Ounces): 0 Weight (Calculated Kilograms): [id number] Constitutional: AAO x 3, well-developed, well-nourished Respiratory: No accessory muscle use, No respiratory distress; chest expansion is symmetric, chest is bilaterally symmetric, lungs clear to auscultation Cardiovascular: regular rate-rhythm; No JVD; S1 and S2 Gastrointestional: No guarding; other (post surgical abdomen not palpated) Extremities: other (mild to mod non-pitting LE swelling) Neurologic/Psychiatric: grossly intact (moves all extremities) Skin: No rash on exposed areas, No ulcerations on exposed areas Results/Procedures: Labs Laboratory Tests 05/31/22 05:47: White Blood Count 7.4, Red Blood Count 3.96, Hemoglobin 11.3L, Hematocrit 36, Mean Corpuscular Volume 91, Mean Corpuscular Hemoglobin 29, Mean Corpuscular Hemoglobin Concent 31L, Red Cell Distribution Width 14.6H, Platelet Count 201, Mean Platelet Volume 9.8, Immature Granulocyte % (Auto) 0, Neutrophils (%) (Auto) 72, Lymphocytes (%) (Auto) 8L, Monocytes (%) (Auto) 14H, Eosinophils (%) (Auto) 7, Basophils (%) (Auto) 0, Neutrophils # (Auto) 5.3, Lymphocytes # (Auto) 0.6L, Monocytes # (Auto) 1.0, Eosinophils # (Auto) 0.5H, Basophils # (Auto) 0.0, Immature Granulocyte # (Auto) 0.0, Prothrombin Time 16.5H, INR Comment 1.3, Sodium Level 135, Potassium Level 3.8, Chloride Level 95L, Carbon Dioxide Level 32, Anion Gap 8, Blood Urea Nitrogen 4L, Creatinine 0.60, Estimat Glomerular Filtration Rate 97, BUN/Creatinine Ratio 7, Glucose Level 118H, Calcium Level 8.2L, Corrected Calcium 9.0, Magnesium Level 2.0, Total Bilirubin 0.5, Aspartate Amino Transf (AST/SGOT) 15, Alanine Aminotransferase (ALT/SGPT) 15, Alkaline Phosphatase 50, Total Protein 5.3L, Albumin 3.0L Microbiology 05/27/22 MRSA Screen - Final, Complete MRSA not isolated Laboratory Tests 05/30/22 05:16 05/31/22 05:47 A/P: Assessment: Chest pain - no evidence of ACS - resolved S/P lab yoan on 05-27-[address] Vail S/P incisional hernia repair on 05-30-[address] Vail H/o Palpitations: - none currently - Intolerance to beta-carlos because of significant bradycardia on these agents - Echo of 09/16/15 showed LVEF 60%, and mild regurg of the mitral and triscuspid and aortic valves. PASP was 30 mmHg - MPI of 09/26/18 shows a small amt of anterolat ischemia, LVEF 58% - Cardiac cath of 05-22-2019: No angiographically significant coronary artery disease. Normal global left ventricular systolic function with ejection fraction of approximately 60%. Elevated left ventricular end-diastolic pressure - Echo of 05/03/22: LVEF 55-60%, biatrial enlargement, PASP 40-45 mmHg Obesity with BMI approx 45 - Sleep studies with Dr Hudson on 11/29/13 did not show obstructive sleep apnea; only mod primary snoring was seen Daytime somnolence and fatigue, currently stable Chronic leg swelling - probably due mild venous insuff Bipolar disorder, being managed by her psychiatrist Severe DJD, especially of the knees, leading to wheechair-bound state, managed by pcp Carotid dz: - Mild bilat carotid arterial disease per carotid u/s of 10/05/18 Plan: No further c/o chest pain Post surgical abdomen Continue current medication regimen Further recs will be based on her hospital course We have reviewed Dr. López notes from the weekend DEON GONZALES May 31, 2022 07:54
[2022-05-31 08:01] VITALS: BP 136/72
[2022-05-31] MEDS: PANTOPRAZOLE 40 MG (PROTONIX) VIAL IV SCH (08:21)
[2022-05-31] MEDS: metroNIDAZOLE 500MG/100ML IVPB 100 ML IV SCH (08:21)
[2022-05-31] MEDS: CIPROFLOXACIN IV 400MG/200ML 200 ML IV SCH (08:21)
[2022-05-31] MEDS: ASPIRIN E.C. 81 MG (ECOTRIN) TAB PO SCH (08:22)
[2022-05-31] MEDS: amLODIPine 5 MG (NORVASC) TAB PO SCH (08:22)
[2022-05-31] MEDS: ASENAPINE 10 MG SL SCH (08:22)
[2022-05-31] MEDS: ALPRAZolam 0.5 MG (XANAX) TAB PO SCH (08:22)
--- NOTE | 2022-05-31 09:13 | Occupational Therapy Eval ---
OT Evaluation-General/PLF Medical Diagnosis Admission Date Medical Diagnosis: gallstones, s/p cholecystitis Onset Date: May 27, 2022 Therapy Diagnosis Therapy Diagnosis: decreased ADL status Height/Weight Height (Feet): 5 Height (Inches): 6.00 Weight (Pounds): 254 Weight (Ounces): 0 Precautions Precautions/Isolations: Fall Prevention, Standard Precautions Referral Physician: Andrea Referral Reason: Evaluation/Treatment Medical History Pertinent Medical History: COPD Additional Medical History anxiety/depression, ADHD, obesity, glaucoma, bipolar, hypothyroidism, HTN, hypercholesterolemia, insomnia, OA, GERD, COPD, L TKA 2014 Current History s/p cholecystitis 05/27, s/p incisional hernia repair 05/29 Social History Current Living Status: Alone Entry Into Home: Ramp ADL-Prior Level of Function SCALE: Activities may be completed with or without assistive devices. 3-Ulyisnovrh-bqywqhw completes the activity by him/herself with no assistance from a helper. 5-Set-up or Clean-up Assistance-helper sets up or cleans up; patient completes activity. [place] assists only prior to or following the activity. 4-Supervision or Touching Assistance-helper provides verbal cues and/or touching/steadying and/or contact guard assistance as patient completes activity. Assistance may be provided throughout the activity or intermittently. 3-Partial/Moderate Assistance-helper does LESS THAN HALF the effort. [place] lifts, holds or supports trunk or limbs, but provides less than half the effort. 2-Substantial/Maximal Assistance-helper does MORE THAN HALF the effort. [place] lifts or holds trunk or limbs and provides more than half the effort. 9-Kivaehjon-dutjcu does ALL the effort. Patient does none of the effort to complete the activity. Or, the assistance of 2 or more helpers is required for the patient to complete the activity. If activity was not attempted, code reason: 7-Patient Refused. 9-Not Applicable-not attempted and the patient did not perform the activity before the current illness, exacerbation or injury. 10-Not Attempted due to Environmental Limitations-(lack of equipment, weather restraints, etc.). 88-Not Attempted due to Medical Conditions or Safety Concerns. ADL PLOF Comments Pt reports having 2 people come in 2x/wk to assist with ADLS and IADLs, including showering, dressing, cleaning, and cooking. Pt indicates on the days she doesn't have assistance she is able to manage dressing herself and manage around the house. She uses a FWW for transfers, but otherwise performs all functional mobility at w/c level. She has a tub/shower with bath bench. 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 Self Care: Needed Some Help Functional Cognition: Independent DME/Equipment: Bath Bench, Tub/Shower OT Current Status Subjective Pt in recliner, agreeable to OT Tx. Mental Status/Objective Patient Orientation: Person, Place, Situation Attachments: Oxygen Current Upper Extremity ROM WFL ADL-Treatment Eating (QC): 6 Upper Body Dressing (QC): 2 (Max A adjusting abdominal binder.) On/Off Footwear (QC): 1 (Per clincial judgment, pt would require total assist at this time due to recent abdominal surgeries and difficulty bending forward) Other Treatments Pt agreeable to OT evaluation. Pt provided information about PLOF and home set up. Pt requests assistance adjusting abdominal binder, as it had moved upwards on her torso and was twisted. Abdominal binder adjusted with max A. Pt declined further ADLs at this time, requesting to rest. Pt unable to complete LE dressing or footwear at this time due to recent abdominal sx and difficulty bending forward. Pt indicates she uses a sock aide at home. OT asked pt if she has ever used a truck driving instructor with LE dressing, pt indicates she has some. OT informed pt about OT POC with focus on increasing BUE Strength and activity tolerance, and increasing independence with LE Dressing using truck driving instructor in order to maximize LOF for safe return home, she verbalized understanding. Post tx, pt in recliner, call light in reach and all needs met. Education OT Patient Education: Correct positioning, Energy conservation, Modified ADL techniques, Progress toward Goal/Update tx plan, Purpose of tx/functional ac tivities, Rehab process Teaching Recipient: Patient Teaching Methods: Discussion Response to Teaching: Verbalize Understanding OT Public Bath Attendant Goals Public Bath Attendant Goals Time Frame: Jun 11, 2022 Eating (QC): 6 Oral Hygiene (QC): 5 Toileting Hygiene (QC): 4 Upper Body Dressing (QC): 5 Lower Body Dressing (QC): 4 On/Off Footwear (QC): 4 Additional Goals: 1-Demonstrate ADL Tasks, 2-Verbalize Understanding, 3- ImproveStrength/Marjorie 1=Demonstrate adherence to instructed precautions during ADL tasks. 2=Patient will verbalize/demonstrate understanding of assistive devices/modifications for ADL. 3=Patient will improve strength/tolerance for activity to enable patient to perform ADL's. OT Education/Plan Problem List/Assessment Assessment: Decreased Activ Tolerance, Decreased UE Strength, Impaired Funct Balance, Impaired I ADL's, Impaired Self-Care Skills Discharge Recommendations Plan/Recommendations: Continue POC Treatment Plan/Plan of Care Patient would benefit from OT for education, treatment and training to promote independence in ADL's, mobility, safety and/or upper extremity function for ADL's. Plan of Care: ADL Retraining, Functional Mobility, UE Funct Exercise/Act Treatment Duration: Jun 11, 2022 Frequency: 3 times per week (3-5 times per week. ) Estimated Hrs Per Day: .25 hour per day Agreement: Yes Time/GCodes Start Time: 08:17 Stop Time: 08:27 Total Time Billed (hr/min): 10 Billed Treatment Time 1, AMARA OROZCO OT May 31, 2022 09:13
--- NOTE | 2022-05-31 10:13 | Physical Therapy Evaluation ---
PT Evaluation-General Medical Diagnosis Admission Date May 20, 2022 Medical Diagnosis: gallstones, s/p cholecystitis Onset Date: May 27, 2022 Therapy Diagnosis Therapy Diagnosis: debility/weakness Height/Weight Height (Feet): 5 Height (Inches): 6.00 Weight (Pounds): 254 Weight (Ounces): 0 Precautions Precautions/Isolations: Fall Prevention, Standard Precautions Referral Physician: Andrea Reason for Referral: Evaluation/Treatment Medical History Pertinent Medical History: COPD, GERD, HTN Additional Medical History bipolar/uterine cancer Current History s/p cholecystectomy 05/27/22 Reviewed History: Yes Social History Home: Single Level Current Living Status: Alone Entry Into Home: Ramp Prior Prior Level of Function SCALE: Activities may be completed with or without assistive devices. 3-Fdugmpwewj-hfzsaqp completes the activity by him/herself with no assistance from a helper. 5-Set-up or Clean-up Assistance-helper sets up or cleans up; patient completes activity. [place] assists only prior to or following the activity. 4-Supervision or Touching Assistance-helper provides verbal cues and/or touching/steadying and/or contact guard assistance as patient completes activity. Assistance may be provided throughout the activity or intermittently. 3-Partial/Moderate Assistance-helper does LESS THAN HALF the effort. [place] lifts, holds or supports trunk or limbs, but provides less than half the effort. 2-Substantial/Maximal Assistance-helper does MORE THAN HALF the effort. [place] lifts or holds trunk or limbs and provides more than half the effort. 3-Wuoljkxng-bqymvd does ALL the effort. Patient does none of the effort to complete the activity. Or, the assistance of 2 or more helpers is required for the patient to complete the activity. If activity was not attempted, code reason: 7-Patient Refused. 9-Not Applicable-not attempted and the patient did not perform the activity before the current illness, exacerbation or injury. 10-Not Attempted due to Environmental Limitations-(lack of equipment, weather restraints, etc.). 88-Not Attempted due to Medical Conditions or Safety Concerns. Bed Mobility: 6 Transfers (B,C,W/C): 6 Gait: 6 (4-5' per patient report (transfers only)) Stairs: 9 Wheelchair Mobility: 6 (uses bilateral LE's to propel w/c and for all mobility inside and outside of home.) Indoor Mobility (Ambulation): Independent (4-5' only) Stairs: Not Applicalbe Prior Devices Use: Manual wheelchair, Walker PT Evaluation-Current Subjective Patient agrees to PT Pain Numeric Pain Scale: 5-Moderate Pain Location: Lower Location Body Site: Abdomen Pain Description: Pressure, Acute Objective Patient Orientation: Normal For Age Attachments: Coulter Catheter, IV ROM/Strength ROM Lower Extremities bilateral LE WFL Strength Lower Extremities 4-/5 grossly bilateral LE all planes Integumentary/Posture Integumentary refer to nursing notes. Bladder Incontinence: Coulter Cath Posture trunk flexed posture Neuromuscular (Tone, Coordination, Reflexes) grossly intact Sensory Vision: Functional Hearing: Functional Transfers Lying to Sitting/Side of Bed(Q: 4 (SBA) Sit to Stand (QC): 4 (SBA) Chair/Nka-ce-Sjvka Xfer(QC): 4 (SBA) Gait Mode of Locomotion: Both Anticipated Mode of Locomotion: Both Walk 10 feet (QC): 9 Walk 50 ft with 2 Turns(QC): 9 Walk 150 ft (QC): 9 Walking 10ft/uneven surface-QC: 9 Distance: 5' to recliner Gait Assistive Device: FWW Comments/Gait Description trunk flexed posture with FWW use x 5' to recliner Stairs 1 Step (curb) (QC): 9 4 Steps (QC): 9 12 Steps (QC): 9 Balance Sitting Static: Normal Sitting Dynamic: Normal Standing Static: Normal Standing Dynamic: Normal Assessment/Needs Patient will be seen short term by skilled PT to address functional strength and mobility. Per patient, she ambulates 4-5' only/transfers to w/c, recliner, toilet in home. Patient reports she utilizes w/c for mobility in home. Rehab Potential: Fair PT Retirement Goals Hide Curer Goals PT Hide Curer Goals Time Frame: Jun 12, 2022 Roll Left & Right (QC): 6 Sit to Lying (QC): 6 Lying-Sitting on Side/Bed(QC): 6 Sit to Stand (QC): 6 Chair/Wbc-jw-Toctu Xfer(QC): 6 Toilet Transfer (QC): 6 Walk 10 feet (QC): 9 Walk 50ft with 2 Turns (QC): 9 Walk 150 ft (QC): 9 Walking 10ft on Uneven Surface: 9 1 Step (curb) (QC): 9 4 Steps (QC): 9 12 Steps (QC): 9 PT Plan Problem List Problem List: Activity Tolerance, Balance, Transfer Treatment/Plan Treatment Plan: Continue Plan of Care Treatment Plan: Bed Mobility, Education, Functional Strength, Gait, Safety, Therapeutic Exercise, Transfers Treatment Duration: Jun 12, 2022 Frequency: 6 times per week Estimated Hrs Per Day: .25 hour per day Patient and/or Family Agrees t: Yes Time Time In: 755 Time Out: 813 Total Billed Treatment Time: 18 Total Billed Treatment 1 visit [facility] 18 min ESME BURNETTE PT May 31, 2022 10:13
--- NOTE | 2022-05-31 11:59 | Progress Note - Cardiology ---
Cardiology SOAP Progress Note Subjective: No cp or palp or syncope No shortness of breath at rest Some gen weakness and malaise, improving No n/v/d Objective: I&O/Vital Signs 05/31/22 05/31/22 05/31/22 05/31/22 04:00 07:04 08:00 08:01 Temp 37.4 37.0 Pulse 84 81 Resp 18 18 B/P (MAP) 134/63 (86) 136/72 (93) Pulse Ox 93 92 92 O2 Delivery Nasal Cannula Nasal Cannula Nasal Cannula Nasal Cannula O2 Flow Rate 3.00 3.00 2.00 3.00 05/31/22 10:52 Pulse Ox 93 O2 Delivery Nasal Cannula O2 Flow Rate 3.00 05/31/22 00:00 Intake Total 3670 ml Output Total 1600 ml Balance 2070 ml Weight (Pounds): 254 Weight (Ounces): 0 Weight (Calculated Kilograms): 115.929226 Constitutional: AAO x 3, well-developed, well-nourished Respiratory: No accessory muscle use, No respiratory distress; chest expansion is symmetric, chest is bilaterally symmetric, lungs clear to auscultation Cardiovascular: regular rate-rhythm; No JVD; S1 and S2 Gastrointestional: No guarding; other (post surgical abdomen not palpated) Extremities: other (mild to mod non-pitting LE swelling) Neurologic/Psychiatric: grossly intact (moves all extremities) Skin: No rash on exposed areas, No ulcerations on exposed areas Results/Procedures: Labs Laboratory Tests 05/31/22 05:47: White Blood Count 7.4, Red Blood Count 3.96, Hemoglobin 11.3L, Hematocrit 36, Mean Corpuscular Volume 91, Mean Corpuscular Hemoglobin 29, Mean Corpuscular Hemoglobin Concent 31L, Red Cell Distribution Width 14.6H, Platelet Count 201, Mean Platelet Volume 9.8, Immature Granulocyte % (Auto) 0, Neutrophils (%) (Auto) 72, Lymphocytes (%) (Auto) 8L, Monocytes (%) (Auto) 14H, Eosinophils (%) (Auto) 7, Basophils (%) (Auto) 0, Neutrophils # (Auto) 5.3, Lymphocytes # (Auto) 0.6L, Monocytes # (Auto) 1.0, Eosinophils # (Auto) 0.5H, Basophils # (Auto) 0.0, Immature Granulocyte # (Auto) 0.0, Prothrombin Time 16.5H, INR Comment 1.3, Sodium Level 135, Potassium Level 3.8, Chloride Level 95L, Carbon Dioxide Level 32, Anion Gap 8, Blood Urea Nitrogen 4L, Creatinine 0.60, Estimat Glomerular Filtration Rate 97, BUN/Creatinine Ratio 7, Glucose Level 118H, Calcium Level 8.2L, Corrected Calcium 9.0, Magnesium Level 2.0, Total Bilirubin 0.5, Aspartate Amino Transf (AST/SGOT) 15, Alanine Aminotransferase (ALT/SGPT) 15, Alkaline Phosphatase 50, Total Protein 5.3L, Albumin 3.0L Microbiology 05/27/22 MRSA Screen - Final, Complete MRSA not isolated Laboratory Tests 05/30/22 05:16 05/31/22 05:47 A/P: Assessment: Chest pain - no evidence of ACS - resolved S/P lab yoan on 05-27-[address] Vail S/P incisional hernia repair on 05-30-[address] Vail H/o Palpitations: - none currently - Intolerance to beta-carlos because of significant bradycardia on these agents - Echo of 09/16/15 showed LVEF 60%, and mild regurg of the mitral and triscuspid and aortic valves. PASP was 30 mmHg - MPI of 09/26/18 shows a small amt of anterolat ischemia, LVEF 58% - Cardiac cath of 05-22-2019: No angiographically significant coronary artery disease. Normal global left ventricular systolic function with ejection fraction of approximately 60%. Elevated left ventricular end-diastolic pressure - Echo of 05/03/22: LVEF 55-60%, biatrial enlargement, PASP 40-45 mmHg Obesity with BMI approx 45 - Sleep studies with Dr Hudson on 11/29/13 did not show obstructive sleep apnea; only mod primary snoring was seen Daytime somnolence and fatigue, currently stable Chronic leg swelling - probably due mild venous insuff Bipolar disorder, being managed by her psychiatrist Severe DJD, especially of the knees, leading to wheechair-bound state, managed by pcp Carotid dz: - Mild bilat carotid arterial disease per carotid u/s of 10/05/18 Plan: No further c/o chest pain Post surgical abdomen Continue current medication regimen Further recs will be based on her hospital course We have reviewed Dr. López notes from the weekend ONELIA PANDA MD FACP FAC CCDS May 31, 2022 11:59
--- NOTE | 2022-05-31 15:26 | Progress Note ---
Subjective Date Seen by a Provider: May 31, 2022 Time Seen by a Provider: 15:00 Subjective/Events-last exam doing well. tolerating diet. pain controlled. having bowel fxn. Objective Exam Vital Signs Date Time Temp Pulse Resp B/P (MAP) Pulse Ox O2 Delivery O2 Flow Rate FiO2 05/31/22 10:52 93 Nasal Cannula 3.00 05/31/22 08:01 37.0 81 18 136/72 (93) 92 Nasal Cannula 3.00 05/31/22 08:00 Nasal Cannula 2.00 05/31/22 07:04 92 Nasal Cannula 3.00 05/31/22 04:00 37.4 84 18 134/63 (86) 93 Nasal Cannula 3.00 05/30/22 23:29 36.8 71 18 105/54 (71) 92 Nasal Cannula 2.00 05/30/22 19:44 37.3 78 24 141/92 (108) 98 Nasal Cannula 2.00 05/30/22 19:35 Nasal Cannula 2.00 05/30/22 18:59 94 Nasal Cannula 2.00 05/30/22 16:00 36.8 94 20 134/76 (95) 92 Nasal Cannula 2.00 2.00 05/30/22 15:56 93 Nasal Cannula 2.00 I & O 05/31/22 07:00 Intake Total 4570 ml Output Total 2900 ml Balance 1670 ml Capillary Refill : General Appearance: No Apparent Distress HEENT: PERRL/EOMI Neck: Full Range of Motion Respiratory: Chest Non Tender, Decreased Breath Sounds Cardiovascular: Regular Rate, Rhythm Gastrointestinal: soft, tenderness Extremity: Normal Capillary Refill Neurologic/Psychiatric: Alert, Oriented x3 Skin: Normal Color Lymphatic: No Adenopathy Results Lab Laboratory Tests 05/31/22 05:47: White Blood Count 7.4, Red Blood Count 3.96, Hemoglobin 11.3L, Hematocrit 36, Mean Corpuscular Volume 91, Mean Corpuscular Hemoglobin 29, Mean Corpuscular Hemoglobin Concent 31L, Red Cell Distribution Width 14.6H, Platelet Count 201, Mean Platelet Volume 9.8, Immature Granulocyte % (Auto) 0, Neutrophils (%) (Auto) 72, Lymphocytes (%) (Auto) 8L, Monocytes (%) (Auto) 14H, Eosinophils (%) (Auto) 7, Basophils (%) (Auto) 0, Neutrophils # (Auto) 5.3, Lymphocytes # (Auto) 0.6L, Monocytes # (Auto) 1.0, Eosinophils # (Auto) 0.5H, Basophils # (Auto) 0.0, Immature Granulocyte # (Auto) 0.0, Prothrombin Time 16.5H, INR Comment 1.3, Sodium Level 135, Potassium Level 3.8, Chloride Level 95L, Carbon Dioxide Level 32, Anion Gap 8, Blood Urea Nitrogen 4L, Creatinine 0.60, Estimat Glomerular Filtration Rate 97, BUN/Creatinine Ratio 7, Glucose Level 118H, Calcium Level 8.2L, Corrected Calcium 9.0, Magnesium Level 2.0, Total Bilirubin 0.5, Aspartate Amino Transf (AST/SGOT) 15, Alanine Aminotransferase (ALT/SGPT) 15, Alkaline Phosphatase 50, Total Protein 5.3L, Albumin 3.0L Microbiology 05/27/22 MRSA Screen - Final, Complete MRSA not isolated Assessment/Plan Assessment/Plan Assess & Plan/Chief Complaint s/p laparoscopic cholecystectomy and interval incisional hernia repair with mesh. doing much better now however functional capacity very poor. diet as tolerated. patient can go to ARU at any time. FER MICHELLE MD May 31, 2022 15:26
== END 2022-05-31 12:35 | DRG 329 ==
LOC: SDC 09:52 → 4TH 15:38 → SDC 05-31 11:07 → 4TH 05-31 11:08
PROVIDERS: ADMIT Surgery; ATTEND Surgery
PROC: 0FT44ZZ Resection of Gallbladder, Percutaneous Endoscopic Approach (ICD-10-PCS; 2022-05-27)
PROC: 0WQF4ZZ Repair Abdominal Wall, Percutaneous Endoscopic Approach (ICD-10-PCS; 2022-05-27)
PROC: 0DS80ZZ Reposition Small Intestine, Open Approach (ICD-10-PCS; 2022-05-29)
PROC: 0WUF0JZ Supplement Abdominal Wall with Synthetic Substitute, Open Approach (ICD-10-PCS; principal; 2022-05-29 16:49)
DX: K43.0 Incisional hernia with obstruction, without gangrene (principal); J96.21 Acute and chronic respiratory failure with hypoxia; J96.22 Acute and chronic respiratory failure with hypercapnia; K56.600 Partial intestinal obstruction, unspecified as to cause; K80.10 Calculus of gallbladder with chronic cholecystitis without obstruction; I50.32 Chronic diastolic (congestive) heart failure; Z68.42 Body mass index [BMI] 45.0-49.9, adult; K42.9 Umbilical hernia without obstruction or gangrene; I11.0 Hypertensive heart disease with heart failure; K21.9 Gastro-esophageal reflux disease without esophagitis; M17.11 Unilateral primary osteoarthritis, right knee; J44.9 Chronic obstructive pulmonary disease, unspecified; E03.9 Hypothyroidism, unspecified; R07.89 Other chest pain; I27.20 Pulmonary hypertension, unspecified; R94.31 Abnormal electrocardiogram [ECG] [EKG]; E66.01 Morbid (severe) obesity due to excess calories; E78.5 Hyperlipidemia, unspecified; E78.00 Pure hypercholesterolemia, unspecified; I87.2 Venous insufficiency (chronic) (peripheral); F41.9 Anxiety disorder, unspecified; F31.9 Bipolar disorder, unspecified; F90.9 Attention-deficit hyperactivity disorder, unspecified type; Z85.42 Personal history of malignant neoplasm of other parts of uterus; Z96.652 Presence of left artificial knee joint
CPT/HCPCS: 36415; 80053; 80061; 83735; 83880; 84484; 85007; 85025; 85027; 85610; 87081; 93005; 94640; 94664; 94760

== ENCOUNTER 2022-05-31 10:48 | Inpatient (IN) | payer MEDICARE, OTHER ==
[~2022-05-31] VITALS: Ht 167.6 cm; Wt 134.5 kg
[~2022-05-31 10:48] MED LIST changes: +HYDR-3817 PO
--- NOTE | 2022-05-31 10:55 | PM&R Post Admission Assessment ---
PM&R HP Date of Visit: May 31, 2022 Time of Visit: 13:00 History of Present Illness Chief complaint: Disuse myopathy HPI: This is a 67-year-old female of [place] Brad[place] with Dr. Toussaint who presents to inpatient rehab in need of aggressive therapy in order to regain function following a complicated hospital course status post cholecystectomy. She has a history of severe hypertension and morbid obesity. Prior level of functioning was independent and continues to work full-time. Patient has not regained bowel function yet and we will discontinue the catheter. She is very fatigued and despondent. CC: Disuse myopathy HPI: This is a 67 yr old female who has a history of morbid obesity. She underwent a cholecystectomy due to symptomatic gallstones by Dr. Vail. At this current time she is slow to recover. She is able to participate in therapy but very slow. She is having a lot of abdominal pain. Bowel function has not been returned back to normal. She will need a close follow up with aggressive therapy and monitoring closely in order for her to return back to independent living. Past Gvjfvcu-Cgpdku-Zdtfcv Hx Past Med/Social Hx: Reviewed Nursing Past Med/Soc Hx, Reviewed and Corrections made Patient Social History Marrital Status: single Employed/Student: employed Alcohol Use: Denies Use Smoking Status: Never a Smoker 2nd Hand Smoke Exposure: Yes Recent Hopitalizations: Yes (MAY 0108/2021 R/T UTI & COPD) Immunizations Up To Date Tetanus Booster (TDap): Unknown Date of Pneumonia Vaccine: Apr 01, 2018 Date of Influenza Vaccine: May 04, 2022 Seasonal Allergies Seasonal Allergies: Yes Past Medical History Surgeries: Hysterectomy, Orthopedic Currently Using CPAP: No Currently Using BIPAP: No Cardiac: High Cholesterol, Hypertension Reproductive: No Sexually Transmitted Disease: No Hysterectomy Genitourinary: Bladder Infection, Kidney Stones, UTI-Chronic Gastrointestinal: Gastroesophageal Reflux, Hemorrhoids, Chronic Diarrhea Musculoskeletal: Arthritis, Chronic Back Pain Endocrine: Hypothyroidsim HEENT: Glaucoma Cancer: Uterine What Type of Treatment Did You: Surgical Intervention Psychosocial: ADD/ADHD, Anxiety, Bipolar, Depression History of Blood Disorders: No Adverse Reaction to Blood Temple: No Family History Alcoholism 03 FATHER, Age:96 03 MOTHER, , Age:60 years and older 09 BROTHER, Age:71 09 BROTHER, , Age:40's - 50 09 BROTHER, Age:66 09 BROTHER, Age:62 09 SISTER, Age:59 Cancer 03 MOTHER, , Age:60 years and older 09 BROTHER, , Age:40's - 50 Cataract 03 FATHER, Age:96 Family history: Arthritis 09 SISTER, Age:59 Family history: Gastrointestinal disease 09 BROTHER, Age:62 Family history: Thyroid disorder 09 SISTER, Age:59 Headache 03 FATHER, Age:96 03 MOTHER, , Age:60 years and older 09 BROTHER, Age:71 09 BROTHER, , Age:40's - 50 09 BROTHER, Age:66 09 BROTHER, Age:62 09 SISTER, Age:59 History of drug abuse Visual impairment No Family History of: Abdominal aortic aneurysm Plumas's disease Aphasia Cancer of colon Chest pain Congenital heart disease Congestive heart failure Cystic fibrosis Dementia Dysphagia Family history: Allergy Family history: Alzheimer's disease Family history: Asthma Family history: Breast disease Family history: Cardiovascular disease Family history: Coronary thrombosis Family history: Diabetes mellitus Family history: Glaucoma Family history: Hypertension Family history: Osteoporosis Hearing loss Heart disease Hereditary disease History of - anemia History of - respiratory disease Human immunodeficiency virus (HIV) seropositivity Hypercholesterolemia Infertile Kidney disease Malignant neoplasm of lung Myocardial infarction Parkinson's disease Prostate cancer Psychotic disorder Seizure disorder Stroke Tuberculosis PM&R Allergy/Meds/Data Review Allergies Uncoded Allergies: MERCURY (Allergy, Mild, unknown, 05/24/22) Home Medications Scheduled Alprazolam (Alprazolam), 1 MG PO BID, (Reported) Amlodipine Besylate (Amlodipine Besylate), 10 MG PO DAILY, (Reported) Asenapine Maleate (Saphris), 20 MG SL HS, (Reported) Aspirin (Aspirin EC), 81 MG PO DAILY, (Reported) Budesonide/Glycopyr/Formoterol (Breztri Aerosphere Inhaler), 2 PUFF INH BID, (Reported) Calcium Carbonate/Vitamin D3 (Calcium 600 + Vit D Tablet), 1 EACH PO DAILY, (Reported) Citalopram Hydrobromide (Citalopram HBr), 40 MG PO DAILY, (Reported) Cyclosporine (Restasis), 1 DROP OU BID, (Reported) Dorzolamide HCl/Timolol Maleat (Dorzolamide-Timolol Eye Drops), 1 DROP OU BID, (Reported) Esomeprazole Magnesium (Nexium), 40 MG PO BID, (Reported) Lamotrigine (Lamotrigine), 400 MG PO HS, (Reported) Latanoprostene Bunod (Vyzulta), 1 DROP OU HS, (Reported) Mv-Mn/Om3/Dha/Epa/Fish/Lut/Adolfo (Ocuvite Adult 50 Plus Softgel), 1 EACH PO HS, (Reported) Omeprazole (Omeprazole), 40 MG PO UD, (Reported) Oxcarbazepine (Oxcarbazepine), 600 MG PO HS, (Reported) Oxybutynin Chloride (Oxybutynin Chloride), 10 MG PO HS, (Reported) Pumpkin Seed Extract/Soy Germ (Azo Bladder Control Capsule), 2 EA PO BID, (Reported) Terbinafine HCl (Terbinafine), 1 APPLIC TOP DAILY, (Reported) [Cranberry Con W/Vitc], 1 EA PO DAILY, (Reported) [Probiotic], 1 EA PO DAILY, (Reported) [T-3], 90 MCG PO DAILY, (Reported) [Ultimate Iron], 1 EA PO DAILY, (Reported) Scheduled PRN Albuterol Sulfate (Ventolin Hfa), 2 PUFF INH Q6H PRN for SHORTNESS OF BREATH, (Reported) Diphenhydramine HCl (Benadryl), 50 MG PO BID PRN for ALLERGY SYMPTOMS, (R eported) Hydrocodone/Acetaminophen (Hydrocodone-Acetamin 7.5-325), 1 EACH PO Q4H PRN for PAIN-BREAKTHROUGH Propylene Glycol/Peg 400 (Systane Ultra 0.4-0.3% Eye Drp), 1 DROP OU UD PRN for DRY EYES, (Reported) Current Medications Current Medications Reviewed Review of Systems Constitutional: see HPI, malaise, weakness EENTM: no symptoms reported Respiratory: dyspnea on exertion Cardiovascular: no symptoms reported Gastrointestinal: abdominal pain, loss of appetite, nausea, vomiting Genitourinary: decreased output Musculoskeletal: back pain, joint pain Skin: no symptoms reported Psychiatric/Neurological: Anxiety, Depressed All Other Systems Reviewed Negative Unless Noted: Yes Physical Exam Physical Exam Vital Signs Capillary Refill : Height, Weight, BMI Height: 5'6.00" Weight: 254lbs. 0oz. 115.998211to; 47.82 BMI Method:Stated General Appearance: No Apparent Distress, WD/WN, Chronically ill, Obese Eyes: Bilateral Eye Normal Inspection, Bilateral Eye PERRL HEENT: PERRL/EOMI, Normal ENT Inspection, Pharynx Normal Neck: Full Range of Motion, Normal Inspection, Non Tender, Supple, Carotid Bruit Respiratory: Chest Non Tender, Lungs Clear, Normal Breath Sounds, No Accessory Muscle Use, No Respiratory Distress, Decreased Breath Sounds Cardiovascular: Regular Rate, Rhythm, No Edema, No Gallop, No JVD, No Murmur, Normal Peripheral Pulses Gastrointestinal: Normal Bowel Sounds, No Organomegaly, No Pulsatile Mass, Soft, Tenderness Back: Normal Inspection, No CVA Tenderness, No Vertebral Tenderness Extremity: Normal Capillary Refill, Normal Inspection, Normal Range of Motion, Non Tender, No Calf Tenderness, No Pedal Edema Neurologic/Psychiatric: Alert, Oriented x3, No Motor/Sensory Deficits, major account manager II- XII Norm as Tested, Abnormal Gait, Depressed Affect, Motor Weakness (Generalized all extremities 3/5) Skin: Normal Color, Warm/Dry Lymphatic: No Adenopathy PM&R Medical Assessment & Plan REHAB/MEDICAL ASSESSMENT AND PLAN: REHAB 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 The comorbidities that impact the patients function and/or functional outcome by: Morbid obesity BMI 48, severe hypertension, severe weakness REHAB PLAN: The patient is being admitted to our comprehensive inpatient rehabilitation facility and can tolerate the intensity of service consisting of at least: 180 minutes of therapy a day, 5 out of 7 days a week Rehab treatment will consist of: PT and OT will focus on regaining function with use of assistive devices in order to increase independence in ADLs to return back home to live alone The patient/family has a good understanding of our discharge process and will benefit from an interdisciplinary inpatient rehabilitation program. The patient has potential to make improvement and is in need of at least two of the following multidisciplinary therapies including but not limited to physical, occupational, speech, and prosthetics and orthotics. Additionally the patient will need services from respiratory, nutritional services, wound care, psychology, etc. (Customize this to each patient). Given the patients complex condition and risk of further medical complications, rehabilitation services cannot be safely or effectively provided at a lower level of care such as a [facility] facility. BARRIERS TO DISCHARGE: Severe weakness of morbid obesity ESTIMATED LOS: 7 days DISPOSITION: Home RELEVANT CHANGES SINCE PREADMISSION SCREENING: I have compared the patients medical and functional status at the time of the preadmission screening and there are: No changes PROGNOSIS: Good REHABILITATION GOALS: 1. PT and OT will focus on regaining function with use of assistive devices in order to increase independence in ADLs to return back home to live alone All the above goals were reviewed with the patient and he/she is in agreement. By signing this document, I acknowledge that I have personally performed a full physical examination on this patient within 24 hours of admission to this inpatient rehabilitation facility and have determined the patient to be able to tolerate the above course of treatment at an intensive level for a reasonable period of time. I will be completing a detailed individualized Plan of Care for this patient by day #4 of the patients stay based upon the Preadmission Screen, the Post-Admission Evaluation, and the therapy evaluations. Admission Dx/Comorbidities: (1) Myopathy ICD Codes: G72.9 - Myopathy, unspecified (2) Super obesity Status: Chronic ICD Codes: E66.9 - Obesity, unspecified (3) Primary hypertension ICD Codes: I10 - Essential (primary) hypertension (4) Chronic heart failure with preserved ejection fraction ICD Codes: I50.32 - Chronic diastolic (congestive) heart failure (5) Gallstones Status: Acute ICD Codes: K80.20 - Calculus of gallbladder without cholecystitis without obstruction (6) S/P laparoscopic cholecystectomy Status: Acute ICD Codes: Z90.49 - Acquired absence of other specified parts of digestive tract (7) Pulmonary hypertension ICD Codes: I27.20 - Pulmonary hypertension, unspecified Assessment/Plan Assessment and Plan Assess & Plan/Chief Complaint Assessment: Disuse myopathy Recent cholecystectomy Continued abdominal pain Mental illness Slow recovery Hypertension Hypothyroidism Hyperlipidemia Morbid obesity Pulmonary hypertension Plan: Aggressive rehab Home meds Supportive care JENNIE CAM DO May 31, 2022 10:55
[2022-05-31] MEDS ORDERED: ALPRAZolam 0.25 MG (XANAX) TAB PO PRN (11:00)
[2022-05-31] MEDS ORDERED: diphenhydrAMINE 25 MG TAB (BENADRYL) PO PRN (11:00)
[2022-05-31] MEDS ORDERED: MELATONIN 3 MG TABLET PO PRN (11:00)
[2022-05-31] MEDS ORDERED: FLEET ENEMA ADULT 1 EA BTL PR PRN (11:00)
[2022-05-31] MEDS ORDERED: DOCUSATE SODIUM 100 MG (COLACE) CAP PO PRN (11:00)
[2022-05-31] MEDS ORDERED: guaiFENesin/CODEINE (ROBITUSSIN AC) 10ML UDC PO PRN (11:00)
[2022-05-31] MEDS ORDERED: BISACODYL 10 MG SUPP (DULCOLAX) PR PRN (11:00)
[2022-05-31] MEDS ORDERED: ENOXAPARIN 40 MG/0.4 ML (LOVENOX) SYR SC SCH (11:00)
[2022-05-31] MEDS ORDERED: CALCIUM CARBONATE 500 MG (TUMS) TAB.CHEW PO PRN (11:00)
[2022-05-31] MEDS ORDERED: LACTULOSE SYRUP 10GM/15ML (ENULOSE) 30ML UDC PO PRN (11:00)
[2022-05-31] MEDS ORDERED: ACETAMINOPHEN 325 MG TABLET PO PRN (11:00)
[2022-05-31 12:30] VITALS: BP 131/73
--- NOTE | 2022-05-31 13:02 | Physical Therapy Evaluation ---
PT Evaluation-General Medical Diagnosis Admission Date Medical Diagnosis: disuse myopathy, s/p cholecystitis Onset Date: May 27, 2022 Therapy Diagnosis Therapy Diagnosis: impaired mobility, strength, endurance Height/Weight Height (Feet): 5 Height (Inches): 6.00 Weight (Pounds): 254 Weight (Ounces): 0 Referral Physician: Hui Grove DO Reason for Referral: Evaluation/Treatment Medical History Pertinent Medical History: COPD, GERD, HTN Additional Medical History bipolar/uterine cancer Reviewed History: Yes Social History Home: Single Level Current Living Status: Alone Entry Into Home: Ramp Prior Prior Level of Function SCALE: Activities may be completed with or without assistive devices. 7-Ulaejlijsc-qbpjoqb completes the activity by him/herself with no assistance from a helper. 5-Set-up or Clean-up Assistance-helper sets up or cleans up; patient completes activity. [place] assists only prior to or following the activity. 4-Supervision or Touching Assistance-helper provides verbal cues and/or touching/steadying and/or contact guard assistance as patient completes activity. Assistance may be provided throughout the activity or intermittently. 3-Partial/Moderate Assistance-helper does LESS THAN HALF the effort. [place] lifts, holds or supports trunk or limbs, but provides less than half the effort. 2-Substantial/Maximal Assistance-helper does MORE THAN HALF the effort. [place] lifts or holds trunk or limbs and provides more than half the effort. 4-Zwljpnlyv-abtwpy does ALL the effort. Patient does none of the effort to complete the activity. Or, the assistance of 2 or more helpers is required for the patient to complete the activity. If activity was not attempted, code reason: 7-Patient Refused. 9-Not Applicable-not attempted and the patient did not perform the activity before the current illness, exacerbation or injury. 10-Not Attempted due to Environmental Limitations-(lack of equipment, weather restraints, etc.). 88-Not Attempted due to Medical Conditions or Safety Concerns. Bed Mobility: 6 Transfers (B,C,W/C): 6 Gait: 6 (patient can only ambulate 4-5' at a time, occurs during transfers) Stairs: 9 Wheelchair Mobility: 6 Stairs: Not Applicalbe Prior Devices Use: Manual wheelchair, Walker PT Evaluation-Current Subjective Patient in recliner pre-tx, reports pain 7-8/10 in abdomen, agrees to PT. Will be co-treating with OT for part of tx due to poor patient mobility, strength, endurance, severe debility, coordinate UE and LE during activity, safety and reduce risk of falls. Pain Section J - Health Conditions 1. Rarely or not at all 2. Occasionally 3. Frequently 4. Almost constantly 8. Unable to answer Pain Effect on Sleep: 2 Pain Interference with Therapy: 1 Pain Interference w/Day-to-Day: 1 Pt/Family Goals to be back in her duplex independently Objective Patient Orientation: Person, Place, Situation Attachments: Oxygen abdominal binder ROM/Strength ROM Lower Extremities WFL Strength Lower Extremities LLE (hip 4-/5, knee extension 3+/5, knee flexion 4-/5, DF 4/5), RLE (hip 4-/5, knee extension 3+/5, knee flexion 4-/5, DF 4/5) Neuromuscular (Tone, Coordination, Reflexes) Coordination slightly diminished running into objects while propelling with WC Sensory Vision: Functional Hearing: Functional Sensation Right Lower Extremit: Intact Sensation Left Lower Extremity: Intact Transfers Roll Left & Right (QC): 4 Sit to Lying (QC): 3 Lying to Sitting/Side of Bed(Q: 4 Sit to Stand (QC): 4 Chair/Kpr-us-Npcyw Xfer(QC): 4 Toilet Transfer (QC): 4 Car Transfer (QC): 4 CGA for all except Min A on Bis-to-Gcffz helping swing legs up into bed. Gait Mode of Locomotion: Both Walk 10 feet (QC): 88 Walk 50 ft with 2 Turns(QC): 88 Walk 150 ft (QC): 88 Walking 10ft/uneven surface-QC: 88 Distance: 5' Gait Assistive Device: FWW Comments/Gait Description Uses FWW during transfers, only able to take a few steps. Mostly WC propel. otherwise. Patient can ambulate 4-5' with a rolling walker with CGA. Wheelchair Training Does the Pt Use a Wheelchair?: Yes Distance: 150', 50', 50', 100' Wheel 50 ft with 2 turns (QC): 6 Wheel 150 ft (QC): 6 Type of Wheelchair: Manual Able to use hands and feet during WC mobility. Stairs 1 Step (curb) (QC): 88 4 Steps (QC): 88 12 Steps (QC): 88 Single Level with ramp to get into duplex Balance Sitting Static: Normal Sitting Dynamic: Normal Standing Static: Fair Standing Dynamic: Fair Picking up an Object (QC): 4 (using wet wheeler) Special Test Comments CGA Treatment Patient was toileted after getting back to her room. PT performed bed mobility and transfers, ambulation, WC mobility, toileting, OT performed UE positioning and safety during activity, safety cues. Assessment/Needs Patient in WC post tx, will hand off to FOUNTAIN HELPER at this time. Patient has impaired mobility, strength, endurance. She is CGA for all mobility except for sit to supine min assist. Rehab Potential: Fair PT Short Term Goals Short Term Goals Time Frame: Jun 07, 2022 Roll Left & Right: 4 (SBA) Sit to lyin (SBA) Lying to sitting on side of be: 4 (SBA) Sit to stand: 4 (SBA) Chair/vfq-qs-foofe transfer: 4 (SBA) Toilet transfer: 4 (SBA) Car transfer: 4 (SBA) Walk 10 feet: 4 (SBA) Walk 50 feet with two turns: 88 Walk 150 feet: 88 Walking 10ft on uneven surface: 88 1 step (curb): 88 4 steps: 88 12 steps: 88 Picking up objects: 4 (SBA) Does pt use a wc or scooter: Yes Type: Manual PT Retirement Goals Retirement Goals PT Weaving Machine Operator Goals Time Frame: Jun 21, 2022 Roll Left to Right (QC): 6 Sit to Lying (QC): 6 Lying-Sitting on Side/Bed(QC): 6 Sit to Stand (QC): 6 Chair/Kyf-ra-Qwrwd Xfer(QC): 6 Toilet/Commode Transfer (QC): 6 Car Transfer (QC): 6 Walk 10 feet (QC): 6 Walk 10ft-Uneven Surface(QC): 88 Walk 50ft with 2 Turns (QC): 88 Walk 150 ft (QC): 88 Wheel 50 feet with 2 turns (QC: 6 Wheel 150 feet: 6 1 Step (curb) (QC): 88 4 Steps (QC): 88 12 Steps (QC): 88 Picking up an Object (QC): 6 PT Plan Problem List Problem List: Activity Tolerance, Functional Strength, Safety, Balance, Gait, Transfer, Bed Mobility, ROM Treatment/Plan Treatment Plan: Continue Plan of Care Treatment Plan: Bed Mobility, Education, Functional Activity Marjorie, Functional Strength, Group Therapy, Gait, Safety, Therapeutic Exercise, Transfers Treatment Duration: Jun 21, 2022 Frequency: At least 5 of 7 days/Wk (IRF) Estimated Hrs Per Day: 1.5 hours per day Patient and/or Family Agrees t: Yes Safety Risks/Education Patient Education: Gait Training, Transfer Techniques, Correct Positioning, W/C Management, Safety Issues Teaching Recipient: Patient Teaching Methods: Demonstration, Discussion Response to Teaching: Reinforcement Needed Discharge Recommendations Plan Patient with perform bed mobility and transfer training, gait training and balance training, functional strengthening and endurance training, to be more independent at home. Therapy Discharge Recommendati: Scheduled Assistance, Home & Family, Post Acute PT Time Time In: 1230 Time Out: 1300 Total Billed Treatment Time: 30 Total Billed Treatment 1 visit EVM 10' FA 10' (no charge) Co-treated with OT [id number] PT eval from [id number], OT eval from [id number], co-treat from [id number] HALIE PATEL PT May 31, 2022 13:02
--- NOTE | 2022-05-31 13:16 | Occupational Therapy Eval ---
OT Evaluation-General/PLF Medical Diagnosis Admission Date Medical Diagnosis: disuse myopathy Onset Date: May 27, 2022 Therapy Diagnosis Therapy Diagnosis: decreased ADL status Height/Weight Height (Feet): 5 Height (Inches): 6.00 Weight (Pounds): 254 Weight (Ounces): 0 Referral Physician: [place] Mason Reason: Evaluation/Treatment Medical History Pertinent Medical History: COPD, GERD, HTN Additional Medical History anxiety/depression, ADHD, obesity, glaucoma, bipolar, hypothyroidism, HTN, hypercholesterolemia, insomnia, OA, GERD, COPD, L TKA 2014 Current History s/p cholecystitis 05/27, s/p incisional hernia repair 05/29 Social History Home: Single Level Current Living Status: Alone Entry Into Home: Ramp multilevel house but only uses main level ADL-Prior Level of Function SCALE: Activities may be completed with or without assistive devices. 3-Nheysomeop-nkaqabh completes the activity by him/herself with no assistance from a helper. 5-Set-up or Clean-up Assistance-helper sets up or cleans up; patient completes activity. [place] assists only prior to or following the activity. 4-Supervision or Touching Assistance-helper provides verbal cues and/or touching/steadying and/or contact guard assistance as patient completes activity. Assistance may be provided throughout the activity or intermittently. 3-Partial/Moderate Assistance-helper does LESS THAN HALF the effort. Daphne lifts, holds or supports trunk or limbs, but provides less than half the effort. 2-Substantial/Maximal Assistance-helper does MORE THAN HALF the effort. [place]aph[place] lifts or holds trunk or limbs and provides more than half the effort. 6-Ktnwyqbex-jffsvz does ALL the effort. Patient does none of the effort to complete the activity. Or, the assistance of 2 or more helpers is required for the patient to complete the activity. If activity was not attempted, code reason: 7-Patient Refused. 9-Not Applicable-not attempted and the patient did not perform the activity before the current illness, exacerbation or injury. 10-Not Attempted due to Environmental Limitations-(lack of equipment, weather restraints, etc.). 88-Not Attempted due to Medical Conditions or Safety Concerns. ADL PLOF Comments Pt reports having 2 people come in 2x/wk (Tuesday and ) to assist with ADLS and IADLs, including showering, dressing, cleaning, and cooking. Pt indicates on the days she doesn't have assistance she is able to manage dressing herself and manage around the house w/c level. She only wears large stretchy pants and large T-Shirts. She uses a FWW for transfers, but otherwise performs all functional mobility at w/c level. She has a tub/shower with bath bench. 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 Reports her abdominal binder has ridden up, requiring assistance to manage back down. Mental Status/Objective Patient Orientation: Person, Place, Time, Situation Attachments: Oxygen (3L NC) Current Glasses/Contacts: Yes (reading) Hearing Aids: No Dentures/Partials: Yes (partial) Hand Dominance: Right Upper Extremity ROM WFL, BUE shoulder flexion to approx 150 degrees Upper Extremity Coordination WFL Upper Extremity Sensation Pt denies tingling/numbness BUEs Upper Extremity Strength grossly 4/5 BUEs ADL-Treatment Eating (QC): 6 Oral Hygiene (QC): 5 Shower/Bathe Self (QC): 10 (not tested due to time constraint of evaluation, please refer to next therapy note.) Upper Body Dressing (QC): 3 (Pt required assistance adjusting abdominal binder) Lower Body Dressing (QC): 10 (not tested due to time constraint of evaluation, please refer to next therapy note.) On/Off Footwear (QC): 10 (not tested due to time constraint of evaluation, please refer to next therapy note.) Toileting Hygiene (QC): 10 (not tested due to time constraint of evaluation, please refer to next therapy note.) Other Treatments Pt agreeable to OT evaluation. Pt finished with lunch, currently on liquid diet. Pt independent with opening containers and drinking liquids at this time. Pt provided information about PLOF and home set up and participated in UE screen. Pt participated in BIM/CAM assessment. OT assisted pt with adjusting abdominal binder due to binder moving upwards on pt's abdomen. Post tx, pt left with BHATIA for continued OT tx, please refer to next tx note for ADL function. Education OT Patient Education: Correct positioning, Energy conservation, Modified ADL techniques, Progress toward Goal/Update tx plan, Purpose of tx/functional activities, Rehab process Teaching Recipient: Patient Teaching Methods: Discussion Response to Teaching: Unable to Return Demonstration BIMS CAM BIMS Expression of Ideas and Wants: Without Difficulty Understanding Verbal Content: Understands Brief Interview/Mental Status: Yes IRF FOX BIMS: IRF FOX BIMS Response (Comments) Value Repitition of Three Words Three 3 Recalls Socks Yes, No Cue Required 2 Recalls Blue Yes, No Cue Required 2 Recalls Bed Yes, No Cue Required 2 Year Correct 3 Month Accurate Within 5 Days 2 Day Correct 1 Total [address] No CAM Mental Status Change/Baseline: 0 Inattention: 0 Disorganized thinkin Altered level of consciousness: 0 OT Short Term Goals Short Term Goals Time Frame: Jun 04, 2022 Upper body dressin Lower body dressin OT Senior Report Developer Goals Snf Goals Time Frame: Jun 18, 2022 Acute change in mental status: 0 Inattention: 0 Disorganized thinkin Altered level of consciousness: 0 Eating (QC): 6 Oral Hygiene (QC): 6 Toileting Hygiene (QC): 6 Shower/Bathe Self (QC): 6 Upper Body Dressing (QC): 6 Lower Body Dressing (QC): 6 On/Off Footwear (QC): 6 Additional Goals: 1-Demonstrate ADL Tasks, 2-Verbalize Understanding, 3- ImproveStrength/Marjorie 1=Demonstrate adherence to instructed precautions during ADL tasks. 2=Patient will verbalize/demonstrate understanding of assistive devices/modifications for ADL. 3=Patient will improve strength/tolerance for activity to enable patient to perform ADL's. OT Education/Plan Problem List/Assessment Assessment: Decreased Activ Tolerance, Decreased UE Strength, Impaired Funct Ba saba, Impaired I ADL's, Impaired Self-Care Skills Pt requires assistance with showering, some ADLs, and IADLs at [facility]. She has assistance 2 times a week with showering and dressing, but on the other days she is able to dress herself and manage around her house at w/c level. Pt will be seen by OT in order to increase BUE strength and activity tolerance, and increase safety and independence with ADLs in order maximize LOF for safe return home. Discharge Recommendations Plan/Recommendations: Continue POC Equpiment Recommendations-D/C: None Treatment Plan/Plan of Care Patient would benefit from OT for education, treatment and training to promote independence in ADL's, mobility, safety and/or upper extremity function for ADL's. Plan of Care: ADL Retraining, Functional Mobility, Group Exercise/Act as Ind, UE Funct Exercise/Act Treatment Duration: Jun 18, 2022 Frequency: At least 5 of 7 days/Wk (IRF) Estimated Hrs Per Day: 1.5 hours per day Agreement: Yes Rehab Potential: Fair Time/GCodes Start Time: 12:40 Stop Time: 12:50 Total Time Billed (hr/min): 10 Billed Treatment Time 1, AMARA OROZCO OT May 31, 2022 13:16
--- NOTE | 2022-05-31 14:15 | Occupational Ther Daily Note ---
OT Current Status-Daily Note Subjective Pt alert, in w/c. Agrees to therapy. Rates abdominal pain a 02/07. Reported to nursing. PT/OT co-treat ([id number]), skills of 2 clinicians required due to increase pain, decreased activity tolerance and decrease fall risk. PT focusing on transfers, bed mobility, w/c mobility and standing while OT focusing on ADLs and functional mobility. Mental Status/Objective Patient Orientation: Person, Place, Time, Situation Attachments: Oxygen (3 L) ADL-Treatment Pt transferred from w/c to toilet with FWW, CGA. Pt completed toileting hygiene independently, however required min A to hike pants over hips. Pt transferred from toilet to w/c with FWW, CGA. Pt transferred from w/c to shower chair with CGA. Pt doffed socks by self with dressing stick. Therapist covered wound for shower. Pt used long handled sponge to wash back and LE's, complete all areas sitting on shower bench. Pt required assist to dry LE's due to abdominal pain. Pt transferred from shower chair to w/c, CGA. Pt dressed upper body by self, after set up. Pt used dressing stick to lace L/R LE through pants. Pt transferred from sit to to stand using FWW, SBA to hike pants over hips. Therapist donned socks due to increased abdominal pain. Pt sitting in recliner at end of session. Phone/call light in reach. All needs met in room. Therapy Code Descriptions/Definitions Functional [place] Measure: 0=Not Assessed/NA 4=Minimal Assistance 1=Total Assistance 5=Supervision or Setup 2=Maximal Assistance 6=Modified [place] 3=Moderate Assistance 7=Complete IndependenceSCALE: Activities may be completed with or without assistive devices. 4-Skbxitwvim-uxotdff completes the activity by him/herself with no assistance from a helper. 5-Set-up or Clean-up Assistance-helper sets up or cleans up; patient completes activity. [place] assists only prior to or following the activity. 4-Supervision or Touching Assistance-helper provides verbal cues and/or t ouching/steadying and/or contact guard assistance as patient completes activity. Assistance may be provided throughout the activity or intermittently. 3-Partial/Moderate Assistance-helper does LESS THAN HALF the effort. [place] lifts, holds or supports trunk or limbs, but provides less than half the effort. 2-Substantial/Maximal Assistance-helper does MORE THAN HALF the effort. [place] lifts or holds trunk or limbs and provides more than half the effort. 8-Ewlqfeelq-txorkf does ALL the effort. Patient does none of the effort to complete the activity. Or, the assistance of 2 or more helpers is required for the patient to complete the activity. If activity was not attempted, code reason: 7-Patient Refused. 9-Not Applicable-not attempted and the patient did not perform the activity before the current illness, exacerbation or injury. 10-Not Attempted due to Environmental Limitations-(lack of equipment, weather restraints, etc.). 88-Not Attempted due to Medical Conditions or Safety Concerns. Shower/Bathe Self (QC): 5 Upper Body Dressing (QC): 5 Lower Body Dressing (QC): 3 (min A) On/Off Footwear: 3 Toileting Hygiene (QC): 3 Toilet Transfer (QC): 4 Pt uses AE for lower body dressing prior to admission. Education OT Patient Education: Use of adapted equipment Teaching Recipient: Patient Teaching Methods: Discussion Response to Teaching: Verbalize Understanding, Return Demonstration OT Short Term Goals Short Term Goals Time Frame: Jun 04, 2022 Upper body dressin Lower body dressin OT Supervisor Purification Goals Supervisor Purification Goals Time Frame: Jun 18, 2022 Acute change in mental status: 0 Inattention: 0 Disorganized thinkin Altered level of consciousness: 0 Eating (QC): 6 Oral Hygiene (QC): 6 Toileting Hygiene (QC): 6 Shower/Bathe Self (QC): 6 Upper Body Dressing (QC): 6 Lower Body Dressing (QC): 6 On/Off Footwear (QC): 6 Additional Goals: 1-Demonstrate ADL Tasks, 2-Verbalize Understanding, 3-Impro veStrength/Marjorie 1=Demonstrate adherence to instructed precautions during ADL tasks. 2=Patient will verbalize/demonstrate understanding of assistive devices/modifications for ADL. 3=Patient will improve strength/tolerance for activity to enable patient to perform ADL's. OT Education/Plan Problem List/Assessment Assessment: Decreased Activ Tolerance, Impaired Bed Mobility, Impaired Self- Care Skills Pt requires assistance with showering, some ADLs, and IADLs at [facility]. She has assistance 2 times a week with showering and dressing, but on the other days she is able to dress herself and manage around her house at w/c level. Pt will be seen by OT in order to increase BUE strength and activity tolerance, and increase safety and independence with ADLs in order maximize LOF for safe return home. Discharge Recommendations Plan/Recommendations: Continue POC Treatment Plan/Plan of Care Patient would benefit from OT for education, treatment and training to promote independence in ADL's, mobility, safety and/or upper extremity function for ADL's. Plan of Care: ADL Retraining, Functional Mobility, Group Exercise/Act as Ind, UE Funct Exercise/Act Treatment Duration: Jun 18, 2022 Frequency: At least 5 of 7 days/Wk (IRF) Estimated Hrs Per Day: 1.5 hours per day Agreement: Yes Rehab Potential: Fair Time/GCodes Start Time: 12:50 Stop Time: 14:10 Total Time Billed (hr/min): 80 Billed Treatment Time 1 visit-ADL 4 (60 min) FA 1 (20 min) Co-treat with PT [id number] ([id number] with PT, [phone] with PLUG STITCHER) GIANLUCA GOODEN May 31, 2022 14:15
--- NOTE | 2022-05-31 14:30 | Physical Therapy Daily Note ---
PT Daily Note-Current Subjective Pt alert, in w/c. Agrees to therapy. Rates abdominal pain a 7. Reported to nursing. Pain Numeric Pain Scale: 7 Location: Incisional Location Body Site: Abdomen Pain Description: Ache, Stabbing Section J - Health Conditions 1. Rarely or not at all 2. Occasionally 3. Frequently 4. Almost constantly 8. Unable to answer Pain Effect on Sleep: 2 Pain Interference with Therapy: 1 Pain Interference w/Day-to-Day: 1 Mental Status Patient Orientation: Person, Place, Situation Attachments: Oxygen Transfers SCALE: Activities may be completed with or without assistive devices. 3-Jmapnajrjh-xnpdvlq completes the activity by him/herself with no assistance from a helper. 5-Set-up or Clean-up Assistance-helper sets up or cleans up; patient completes activity. [place] assists only prior to or following the activity. 4-Supervision or Touching Assistance-helper provides verbal cues and/or touching/steadying and/or contact guard assistance as patient completes activity. Assistance may be provided throughout the activity or intermittently. 3-Partial/Moderate Assistance-helper does LESS THAN HALF the effort. [place] lifts, holds or supports trunk or limbs, but provides less than half the effort. 2-Substantial/Maximal Assistance-helper does MORE THAN HALF the effort. [place] lifts or holds trunk or limbs and provides more than half the effort. 9-Oplykizpy-hokebd does ALL the effort. Patient does none of the effort to complete the activity. Or, the assistance of 2 or more helpers is required for the patient to complete the activity. If activity was not attempted, code reason: 7-Patient Refused. 9-Not Applicable-not attempted and the patient did not perform the activity before the current illness, exacerbation or injury. 10-Not Attempted due to Environmental Limitations-(lack of equipment, weather restraints, etc.). 88-Not Attempted due to Medical Conditions or Safety Concerns. Roll Left & Right (QC): 3 Sit to Lying (QC): 3 Lying to Sitting/Side of Bed(Q: 4 Sit to Stand (QC): 4 Weight Bearing Full Weight Bearing Wheelchair Training Does the Pt Use a Wheelchair?: Yes Type of Wheelchair: Manual Exercises Seated Therapy Exercises: Ankle pumps, Long arc quads, Hip flexion Seated Reps: 10 Treatments Pt requires assistance with showering, some ADLs, and IADLs at [facility]. She has assistance 2 times a week with showering and dressing, but on the other days she is able to dress herself and manage around her house at w/c level. Pt will be seen by PT in order to increase BLE strength and activity tolerance, and increase safety and independence with transfers in order maximize LOF for safe return home. Pt transferred from w/c to toilet with FWW, CGA. Pt completed toileting hygiene independently, however required min A to hike pants over hips. Pt transferred from toilet to w/c with FWW, CGA. Pt transferred from w/c to shower chair with CGA. Pt doffed socks by self with dressing stick. Therapist covered wound for shower. Pt used long handled sponge to wash back and LE's, complete all areas sitting on shower bench. Pt required assist to dry LE's due to abdominal pain. Pt transferred from shower chair to w/c, CGA. Pt dressed upper body by self, after set up. Pt used dressing stick to lace L/R LE through pants. Pt transfer red from sit to to stand using FWW, SBA to hike pants over hips. Therapist donned socks due to increased abdominal pain. Pt sitting in recliner at end of session. Phone/call light in reach. All needs met in room. Assessment Current Status: Fair Progress Pt needs VC for safety and sequencing at times. Pt is not able to lift B LE into bed. PT Short Term Goals Short Term Goals Time Frame: Jun 07, 2022 Roll Left & Right: 4 (SBA) Sit to lyin (SBA) Lying to sitting on side of be: 4 (SBA) Sit to stand: 4 (SBA) Chair/qzt-kx-fbfny transfer: 4 (SBA) Toilet transfer: 4 (SBA) Car transfer: 4 (SBA) Walk 10 feet: 4 (SBA) Walk 50 feet with two turns: 88 Walk 150 feet: 88 Walking 10ft on uneven surface: 88 1 step (curb): 88 4 steps: 88 12 steps: 88 Picking up objects: 4 (SBA) Does pt use a wc or scooter: Yes Type: Manual PT Retirement Officer Goals Retirement Goals PT Retirement Goals Time Frame: Jun 21, 2022 Roll Left & Right (QC): 6 Sit to Lying (QC): 6 Lying-Sitting on Side/Bed(QC): 6 Sit to Stand (QC): 6 Chair/Nog-cn-Bnfio Xfer(QC): 6 Toilet Transfer (QC): 6 Car Transfer (QC): 6 Does the Patient Walk: Yes Walk 10 feet (QC): 6 Walk 50ft with 2 Turns (QC): 88 Walk 150 ft (QC): 88 Walking 10ft on Uneven Surface: 88 1 Step (curb) (QC): 88 4 Steps (QC): 88 12 Steps (QC): 88 Picking up an Object (QC): 6 Wheel 50 feet with 2 turns (QC: 6 Wheel 150 feet: 6 PT Plan Problem List Problem List: Activity Tolerance, Functional Strength Treatment/Plan Treatment Plan: Continue Plan of Care Treatment Plan: Bed Mobility, Education, Functional Activity Marjorie, Functional Strength, Group Therapy, Gait, Safety, Therapeutic Exercise, Transfers Treatment Duration: Jun 21, 2022 Frequency: At least 5 of 7 days/Wk (IRF) Estimated Hrs Per Day: 1.5 hours per day Patient and/or Family Agrees t: Yes Safety Risks/Education Patient Education: Transfer Techniques, Correct Positioning, Safety Issues Teaching Recipient: Patient Teaching Methods: Discussion Response to Teaching: Verbalize Understanding Time Time In: 1300 Time Out: 1410 Total Billed Treatment Time: 70 Total Billed Treatment Co-treat w/OT for 70m 1, FA x5 (70m) ALLENMARIEKELSEY SHEET METAL SUPERINTENDENT May 31, 2022 14:30
[2022-05-31] MEDS: ONDANSETRON 4 MG (ZOFRAN) ORAL DISSOLVE TAB PO PRN ×2 (16:52→22:32)
[2022-05-31] MEDS: ENOXAPARIN 40 MG/0.4 ML (LOVENOX) SYR SC SCH (16:52)
[2022-05-31 20:01] VITALS: BP 148/70
[2022-05-31] MEDS: DOCUSATE SODIUM 100 MG (COLACE) CAP PO SCH (21:07)
[2022-05-31] MEDS: SENNA W/DOCUSATE (SENOKOT S) TABLET PO SCH (21:08)
[2022-05-31] MEDS: polyethylene glycoL POWDER 17 GM (MIRALAX) PACK PO SCH (21:08)
[2022-06-01] MEDS: ENOXAPARIN 40 MG/0.4 ML (LOVENOX) SYR SC SCH ×2 (05:15→17:24)
[2022-06-01 05:43] LABS: BASOPHILS % (AUTO) 0 % (0-10); EOSINOPHILS # (AUTO) 0.5 10^3/uL (0.0-0.3); EOSINOPHILS % (AUTO) 7 % (0-10); HEMATOCRIT 38 % (35-52); HEMOGLOBIN 11.6 g/dL (11.5-16.0); LYMPHOCYTES # (AUTO) 0.6 10^3/uL (1.0-4.0); LYMPHOCYTES % (AUTO) 7 % (12-44); MEAN CORPUSCULAR HEMOGLOBIN 28 pg (25-34); MEAN CORPUSCULAR HGB CONC 31 g/dL (32-36); MEAN CORPUSCULAR VOLUME 92 fL (80-99); MEAN PLATELET VOLUME 9.6 fL (9.0-12.2); MONOCYTES # (AUTO) 0.9 10^3/uL (0.0-1.0); MONOCYTES % (AUTO) 12 % (0-12); NEUTROPHILS # (AUTO) 5.8 10^3/uL (1.8-7.8); NEUTROPHILS % (AUTO) 74 % (42-75); PLATELET COUNT 220 10^3/uL (130-400); WHITE BLOOD COUNT 7.9 10^3/uL (4.3-11.0)
--- NOTE | 2022-06-01 05:58 | PM&R Progress Note ---
Subjective HPI/CC On Admission Date Seen by Provider: Jun 01, 2022 Time Seen by Provider: 09:00 Subjective/Events-last exam 06/01/2022: Pt is doing well BP is very elevated Checked meds and labs Myopathy is an issue Appears she is mostly sedentary at home Otherwise doing well Review of Systems General: Fatigue, Malaise Objective Exam Vital Signs Vital Signs Date Time Temp Pulse Resp B/P (MAP) Pulse Ox O2 Delivery O2 Flow Rate FiO2 06/01/22 21:45 96 Nasal Cannula 3.00 06/01/22 20:12 37.0 91 20 133/83 (100) Capillary Refill : General Appearance: No Apparent Distress, WD/WN, Chronically ill, Obese HEENT: PERRL/EOMI, Normal ENT Inspection, Pharynx Normal Neck: Full Range of Motion, Normal Inspection, Non Tender, Supple, Carotid Bruit Respiratory: Chest Non Tender, Lungs Clear, Normal Breath Sounds, No Accessory Muscle Use, No Respiratory Distress, Decreased Breath Sounds Cardiovascular: Regular Rate, Rhythm, No Edema, No Gallop, No JVD, No Murmur, Normal Peripheral Pulses Gastrointestinal: Normal Bowel Sounds, No Organomegaly, No Pulsatile Mass, Soft, Tenderness Back: Normal Inspection, No CVA Tenderness, No Vertebral Tenderness Extremity: Normal Capillary Refill, Normal Inspection, Normal Range of Motion, Non Tender, No Calf Tenderness, No Pedal Edema Neurologic/Psychiatric: Alert, Oriented x3, No Motor/Sensory Deficits, optical laboratory technician II- XII Norm as Tested, Abnormal Gait, Depressed Affect, Motor Weakness (Generalized all extremities 3/5) Skin: Normal Color, Warm/Dry Lymphatic: No Adenopathy Results/Procedures Lab Patient resulted labs reviewed. FIM Transfers Therapy Code Descriptions/Definitions Functional [place] Measure: 0=Not Assessed/NA 4=Minimal Assistance 1=Total Assistance 5=Supervision or Setup 2=Maximal Assistance 6=Modified [place] 3=Moderate Assistance 7=Complete IndependenceSCALE: Activities may be completed with or without assistive devices. 7-Yzfjozpppk-psdddee completes the activity by him/herself with no assistance fr om a helper. 5-Set-up or Clean-up Assistance-helper sets up or cleans up; patient completes activity. [place] assists only prior to or following the activity. 4-Supervision or Touching Assistance-helper provides verbal cues and/or touching/steadying and/or contact guard assistance as patient completes activity. Assistance may be provided throughout the activity or intermittently. 3-Partial/Moderate Assistance-helper does LESS THAN HALF the effort. [place] lifts, holds or supports trunk or limbs, but provides less than half the effort. 2-Substantial/Maximal Assistance-helper does MORE THAN HALF the effort. [place] lifts or holds trunk or limbs and provides more than half the effort. 8-Lhfelydgs-vlpvrn does ALL the effort. Patient does none of the effort to complete the activity. Or, the assistance of 2 or more helpers is required for the patient to complete the activity. If activity was not attempted, code reason: 7-Patient Refused. 9-Not Applicable-not attempted and the patient did not perform the activity before the current illness, exacerbation or injury. 10-Not Attempted due to Environmental Limitations-(lack of equipment, weather restraints, etc.). 88-Not Attempted due to Medical Conditions or Safety Concerns. Roll Left to Right (QC): 3 Sit to Lying (QC): 3 Sit to Stand (QC): 4 Chair/Fhr-ez-Bqjep Xfer(QC): 4 Car Transfer (QC): 4 Gait Training Walk 10 feet (QC): 88 Walk 50 ft with 2 Turns(QC): 88 Walk 150 ft (QC): 88 Walking 10ft/uneven surface-QC: 88 Gait Assistive Device: FWW Wheelchair Training Does the Pt Use a Wheelchair?: Yes Distance: 150', 50', 50', 100' Wheel 50 ft with 2 turns (QC): 6 Wheel 150 ft (QC): 6 Type of Wheelchair: Manual Stair Training 1 Step (curb) (QC): 88 4 Steps (QC): 88 12 Steps (QC): 88 Balance Picking up an Object (QC): 4 (using oil agent) ADL-Treatment Eating (QC): 6 Oral Hygiene (QC): 5 Shower/Bathe Self (QC): 5 Upper Body Dressing (QC): 5 Lower Body Dressing (QC): 3 (min A) On/Off Footwear (QC): 3 Toileting Hygiene (QC): 3 Toilet Transfer (QC): 4 Assessment/Plan Assessment and Plan Assess & Plan/Chief Complaint Assessment: Disuse myopathy Recent cholecystectomy Continued abdominal pain Mental illness Slow recovery Hypertension Hypothyroidism Hyperlipidemia Morbid obesity Pulmonary hypertension Plan: Aggressive rehab Home meds Supportive care 06/01/2022: Supportive care Blood pressure meds Continue recovery (1) Myopathy (2) Super obesity Status: Chronic (3) Primary hypertension (4) Chronic heart failure with preserved ejection fraction (5) Gallstones Status: Acute (6) S/P laparoscopic cholecystectomy Status: Acute (7) Pulmonary hypertension JENNIE CAM DO Jun 01, 2022 05:58
--- NOTE | 2022-06-01 05:59 | Individualized Plan of Care ---
Individualized Plan of Care Rehab Nursing IPOC Order Admission Date May 31, 2022 at 12:30 Current Orders Orders Admission Order(Inpt,Obs,Sdc) (05/31/22 10:52) Vital Signs: Per Unit Policy ( 08,16,00 (05/31/22 10:52) Zane Serna 09,21 (05/31/22 10:52) Sequential Compression Device (05/31/22 10:52) Canary Raiser-Inpt Rehab Con (05/31/22 10:52) Rehab Nursing Orders-Ipoc (05/31/22 10:52) Physical Therapy Rehab Orders (05/31/22 10:52) Occupational Therapy Rehab Ord (05/31/22 10:52) Speech Therapy Rehab Orders (05/31/22 10:52) Cbc With Automated Diff (06/01/22 06:00) Comprehensive Metabolic Panel (06/01/22 06:00) Precautions (Aru) (05/31/22 10:52) Weekly Weight WEEK (05/31/22 10:52) Rehab-Intensity Of Therapy (05/31/22 10:52) Initiate Admission Nursing Pro .admission (05/31/22 10:52) Alprazolam Tablet (Xanax Tablet) (05/31/22 11:00) Calcium Carbonate Chew Tablet (Antacid C (05/31/22 11:00) Diphenhydramine Tablet (Benadryl Tablet) (05/31/22 11:00) Docusate Sodium Capsule (Colace Capsule) (05/31/22 21:00) Docusate Sodium Capsule (Colace Capsule) (05/31/22 11:00) Bisacodyl Suppository (Dulcolax Supposit (05/31/22 11:00) Lactulose Oral Solution (Enulose Oral So (05/31/22 11:00) Na Phos/Na Biphos Enema (Fleet Enema Jero (05/31/22 11:00) Guaifenesin/Codeine Syrup (Robitussin Ac (05/31/22 11:00) Loperamide Tablet (Imodium Tablet) (05/31/22 11:00) Enoxaparin Injection (Lovenox Injection) (05/31/22 11:00) Melatonin Tablet (Melatonin Tablet) (05/31/22 11:00) Polyethylene Glycol Powder Pkt (Miralax (05/31/22 21:00) Ondansetron Oral Dissolve Tab (Zofran (05/31/22 11:00) Senna S Tablet (Senokot S Tablet) (05/31/22 21:00) Acetaminophen Tablet/Caplet (Tylenol T (05/31/22 11:00) Code/Resuscitation (05/31/22 10:52) Admission Arrival Bed Request (05/31/22 12:46) General/Regular (05/31/22 Lunch) Enoxaparin Injection (Lovenox Injection) (05/31/22 17:00) Patient Visit (05/31/22 ) Pt Eval Moderate Complexity (05/31/22 ) Patient Visit (05/31/22 ) Functional Activities, Ea 15 (05/31/22 ) Albuterol Pre-Mix Nebs (Rt) (Proventil (06/01/22 08:00) Alprazolam Tablet (Xanax Tablet) (06/01/22 09:00) Amlodipine Tablet (Norvasc Tablet) (06/01/22 09:00) Aspirin Enteric Coated Tablet (Ecotrin T (06/01/22 09:00) Calcium Carbonate W/Vitamin D3 (Calcarb (06/01/22 09:00) Dorzolamide/Timolol Ophth Soln (Cosopt O (06/01/22 09:00) Hydrocodone/Apap 7.5/325 Tab (Lortab 7. (06/01/22 07:47) Svn Small Volume Nebulizer (06/01/22 07:47) Oxcarbazepine Tablet (Trileptal Tablet) (06/01/22 21:00) Oxybutynin Tablet (Ditropan Tablet) (06/01/22 21:00) Terbinafine Cream (Lamisil Af 1% Cream) (06/02/22 09:00) (Nf) Asenapine Maleate (Saphris) (06/01/22 21:00) Fluticasone/Salmeterol 232-14 (Airduo Re (06/01/22 21:00) Citalopram Tablet (Celexa Tablet) (06/02/22 09:00) Carboxymethylcell Ophth Soln (Refresh Pl (06/01/22 21:00) Diphenhydramine Tablet (Benadryl Tablet) (06/01/22 12:45) Pantoprazole Tablet (Protonix Tablet) (06/01/22 21:00) Lamotrigine Tablet (Lamictal Tablet) (06/01/22 21:00) (Nf) Latanoprostene Bunod (Vyzulta) (06/01/22 21:00) Therapeutic Multivitamin Tab (Vitamins, (06/01/22 21:00) (Nf) Omeprazole (06/01/22 09:45) Carboxymethylcell Ophth Soln (Refresh Pl (06/01/22 13:00) (Nf) Pumpkin Seed Extract/Soy Germ (Azo (06/01/22 21:00) Scopolamine Patch (Transderm-Scop Patch) (06/01/22 11:00) Clonidine Tablet (Catapres Tablet) (06/01/22 09:45) Miconazole 2% Powder (Phytoplex Af 2% Po (06/01/22 21:00) Patch Removal (Patch Removal) (06/04/22 10:59) Patient Visit (06/01/22 ) Exercise Therap, Ea 15 Min (06/01/22 ) Functional Activities, Ea 15 (06/01/22 ) Patient May Use Own Med,Single (Patient (06/01/22 12:00) Umeclidinium [place] Inhaler (Incruse El (06/02/22 08:00) Patient Visit (06/01/22 ) Functional Activities, Ea 15 (06/01/22 ) Patient Visit (06/01/22 ) Speech Sound Lang Comp (06/01/22 ) Treat. Speech/Lang/Voice (06/01/22 ) Promethazine Tablet (Phenergan Tablet) (06/01/22 14:15) Nitrofurantoin Capsule,Macro (Macrobid C (06/01/22 21:00) Patient May Use Own Med,Single (Patient (06/01/22 17:45) Rehab Nursing Orders: Ongoing Assess. of Cognitive Status, Ongoing Assess. of Function Status, Bladder Management, Bladder Scan, Bladder Training, Bowel Management, Bowel Training, Disease Management & Educaiton, DVT Prophylaxis, Fall Prevention, Fluid/Electrolyte/Nutrition Mgmt, Infection Prevention, Medication Management & Education, Management of Risks & Complications, Management of Skin Intergrity, Nutrition Management, Pain Management, Patient/Family Support, Wound Management Intensity of Therapy to be met Patient to be seen: Min.3h per day/5 of 7d PT IPOC Problem List: Activity Tolerance, Functional Strength Treatment Plan: Continue Plan of Care Bed Mobility, Education, Functional Activity Marjorie, Functional Strength, Group Therapy, Gait, Safety, Therapeutic Exercise, Transfers Treatment Duration: Jun 21, 2022 Frequency: At least 5 of 7 days/Wk (IRF) Estimated Hrs Per Day: 1.5 hours per day OT IPOC Problems: Decreased Activ Tolerance, Impaired Bed Mobility, Impaired Self-Care Skills OT Treatment, Training and Edu: Yes OT Problems Pt requires assistance with showering, some ADLs, and IADLs at [facility]. She has assistance 2 times a week with showering and dressing, but on the other days she is able to dress herself and manage around her house at w/c level. Pt will be seen by OT in order to increase BUE strength and activity tolerance, and increase safety and independence with ADLs in order maximize LOF for safe return home. Plan of Care: ADL Retraining, Functional Mobility, Group Exercise/Act as Ind, UE Funct Exercise/Act Treatment Duration: Jun 18, 2022 Frequency: At least 5 of 7 days/Wk (IRF) Estimated Hrs Per Day: 1.[address] IPOC Speech Therapy Treatment Plan: Discontinue ST Treatment Duration: Jun 01, 2022 Frequency: Modified Program (IRF) Estimated Hrs Per Day: Other Canary Raiser/Case Mgmt Canary Raiser/Case Managemen: Discharge Planning Dietitian/Patent Chemist Dietitian/Patent Chemist to monitor nutritional status and make changes and/or re commendations as needed and work with speech pathology on dietary upgrades as the occur. Physician IPOC Medical Issues being managed closely and that require the 24 hour availability of a physician: Recent cholecystectomy complicated by morbid obesity and slow recovery with mental illness will require close monitoring for any decompensation along with severe malignant hypertension restarting home meds but adding more to prevent hypertensive urgency Medical Issues: Bowel/Bladder Function, DVT Prophylaxis, Falls Precautions, Fluid/Electrolyte/Nutrition Balance, Infection Protection, Pain Management, Wound Care Brief Synthesis of Preadmission Screen, Post-Admission Evaluation, and Therapy Evaluations: PT and OT will focus on regaining function due to slow recovery from cholecystectomy due to morbid obesity and flat affect and will help her use assistive devices in order to regain independence Medical Prognosis: Good Anticipated Length of Stay: 7 days JENNIE CAM DO Jun 01, 2022 05:59
[2022-06-01 06:01] LABS: ALBUMIN 3.2 GM/DL (3.2-4.5); BILIRUBIN,TOTAL 0.6 MG/DL (0.1-1.0); CALCIUM 8.9 MG/DL (8.5-10.1); CREATININE SERUM 0.59 MG/DL (0.60-1.30); POTASSIUM 3.7 MMOL/L (3.6-5.0); TOTAL PROTEIN 5.8 GM/DL (6.4-8.2)
[2022-06-01] MEDS: ONDANSETRON 4 MG (ZOFRAN) ORAL DISSOLVE TAB PO PRN ×3 (06:29→18:39)
[2022-06-01 07:21] VITALS: BP 179/113
[2022-06-01] MEDS ORDERED: RT-ALBUTEROL SULF 2.5 MG/3 ML PRE-MIX VIAL INH PRN (08:00)
[2022-06-01] MEDS: polyethylene glycoL POWDER 17 GM (MIRALAX) PACK PO SCH ×2 (08:17→20:35)
[2022-06-01] MEDS: ASPIRIN E.C. 81 MG (ECOTRIN) TAB PO SCH (08:17)
[2022-06-01] MEDS: SENNA W/DOCUSATE (SENOKOT S) TABLET PO SCH ×2 (08:17→20:36)
[2022-06-01] MEDS: amLODIPine 10 MG (NORVASC) TAB PO SCH (08:17)
[2022-06-01] MEDS: DOCUSATE SODIUM 100 MG (COLACE) CAP PO SCH ×2 (08:17→20:34)
[2022-06-01 08:42] VITALS: BP 178/92
[2022-06-01] MEDS: CALCIUM CARB + VIT D 600 MG (CALCARB + D) TAB PO SCH (08:48)
[2022-06-01] MEDS: ALPRAZolam 0.5 MG (XANAX) TAB PO SCH ×2 (08:48→20:37)
[2022-06-01] MEDS: DORZOLAMIDE/TIMOLOL (COSOPT) 2-0.68% 10 ML BTL OU SCH ×2 (08:49→21:11)
--- NOTE | 2022-06-01 09:20 | Occupational Ther Daily Note ---
OT Current Status-Daily Note Subjective Pt in recliner, alert. Pt agrees to therapy. Pt c/o no pain. Pt is nauseous and BP is 178/92. Reported to nursing. Mental Status/Objective Patient Orientation: Person, Place, Time, Situation Attachments: IV, Oxygen (3 L) ADL-Treatment Pt propelled self to bathroom in w/c. Pt SBA for toilet transfer using FWW. Completed toilet hygiene by self. Pt transferred from w/c to standing with FWW, SBA to recliner. Pt used AE to don/doff socks by self. Pt stood with FWW, SBA to pull down pants and used unattended ground sensor specialist to remove pants from around feet and pick them up from the floor. Therapist hiked pants over hips due to increased nausea and fatigue. Pt donned/doffed upper body dressing by self. Pt required set up for all dressing task. Pt required extended amount of time and breaks to complete all task due to nausea. Pt reports SOA, oxygen 96 on 3 L. SOA reported to nursing. Pt laying down in recliner at end of session and made comfortable. Call light/phone in reach. All needs met in room. Therapy Code Descriptions/Definitions Functional Harvard Measure: 0=Not Assessed/NA 4=Minimal Assistance 1=Total Assistance 5=Supervision or Setup 2=Maximal Assistance 6=Modified Harvard 3=Moderate Assistance 7=Complete IndependenceSCALE: Activities may be completed with or without assistive devices. 1-Jekiqkdaau-gmoyshr completes the activity by him/herself with no assistance from a helper. 5-Set-up or Clean-up Assistance-helper sets up or cleans up; patient completes activity. Waldron assists only prior to or following the activity. 4-Supervision or Touching Assistance-helper provides verbal cues and/or touching/steadying and/or contact guard assistance as patient completes activity. Assistance may be provided throughout the activity or intermittently. 3-Partial/Moderate Assistance-helper does LESS THAN HALF the effort. Waldron lifts, holds or supports trunk or limbs, but provides less than half the effort. 2-Substantial/Maximal Assistance-helper does MORE THAN HALF the effort. Waldron lifts or holds trunk or limbs and provides more than half the effort. 2-Wodymgazd-fdsvmy does ALL the effort. Patient does none of the effort to complete the activity. Or, the assistance of 2 or more helpers is required for the patient to complete the activity. If activity was not attempted, code reason: 7-Patient Refused. 9-Not Applicable-not attempted and the patient did not perform the activity before the current illness, exacerbation or injury. 10-Not Attempted due to Environmental Limitations-(lack of equipment, weather restraints, etc.). 88-Not Attempted due to Medical Conditions or Safety Concerns. Upper Body Dressing (QC): 5 (Pt able to adjust abdominal binder while on body) Lower Body Dressing (QC): 3 On/Off Footwear: 5 Toileting Hygiene (QC): 4 Toilet Transfer (QC): 4 Pt took increased time due to nausea. Other Treatment Pt pinched resistive clothes pins with BUE's to increase strength required for self care skills and mobility. Pt required extended amount of time and breaks between placement of each clothes pin to complete task. OT Short Term Goals Short Term Goals Time Frame: Jun 04, 2022 Upper body dressin Lower body dressin OT Parachute Accessories Attacher Goals Parachute Accessories Attacher Goals Time Frame: Jun 18, 2022 Acute change in mental status: 0 Inattention: 0 Disorganized thinkin Altered level of consciousness: 0 Eating (QC): 6 Oral Hygiene (QC): 6 Toileting Hygiene (QC): 6 Shower/Bathe Self (QC): 6 Upper Body Dressing (QC): 6 Lower Body Dressing (QC): 6 On/Off Footwear (QC): 6 Additional Goals: 1-Demonstrate ADL Tasks, 2-Verbalize Understanding, 3- ImproveStrength/Marjorie 1=Demonstrate adherence to instructed precautions during ADL tasks. 2=Patient will verbalize/demonstrate understanding of assistive devices/modifications for ADL. 3=Patient will improve strength/tolerance for activity to enable patient to perform ADL's. OT Education/Plan Problem List/Assessment Assessment: Decreased Activ Tolerance, Impaired Self-Care Skills Pt requires assistance with showering, some ADLs, and IADLs at [facility]. She has assistance 2 times a week with showering and dressing, but on the other days she is able to dress herself and manage around her house at w/c level. Pt will be seen by OT in order to increase BUE strength and activity tolerance, and increase safety and independence with ADLs in order maximize LOF for safe return home. Discharge Recommendations Plan/Recommendations: Continue POC Treatment Plan/Plan of Care Patient would benefit from OT for education, treatment and training to promote independence in ADL's, mobility, safety and/or upper extremity function for ADL's. Plan of Care: ADL Retraining, Functional Mobility, Group Exercise/Act as Ind, UE Funct Exercise/Act Treatment Duration: Jun 18, 2022 Frequency: At least 5 of 7 days/Wk (IRF) Estimated Hrs Per Day: 1.5 hours per day Agreement: Yes Rehab Potential: Fair Time/GCodes Start Time: 08:00 Stop Time: 09:15 Total Time Billed (hr/min): 75 Billed Treatment Time 1 visit ADL 4 (65 min) EX 1 (10 min) GIANLUCA GOODEN Jun 01, 2022 09:20
[2022-06-01] MEDS ORDERED: NON-FORMULARY MEDICATION 1 EA EA (Omeprazole 40 MG) PO SCH (09:45)
[2022-06-01] MEDS ORDERED: SCOPOLAMINE 1.5 MG (TRANSDERM-SCOP) PATCH TD NR (11:00)
--- NOTE | 2022-06-01 11:55 | ST Cognitive Linguistic Eval ---
Speech Evaluation-General Medical Diagnosis Disuse Myopathy, s/p Cholecystitis Onset Date: May 27, 2022 Therapy Diagnosis Therapy Diagnosis: Intact Cognition Precautions Precautions: Fall, Pressure Ulcer Precautions/Isolations: Fall Prevention, Standard Precautions, Pressure Ulcer Referral Referring Physician: Dr. Grove Reason for Referral: Evaluation/Treatment Medical History Pertinent Medical History: COPD, GERD, HTN Current History The patient is a 67 year-old female with a past medical history of COPD, GERD, HTN, anxiety, depression, obesity, hypothyroidism, bipolar, insomnia, and OA, who is s/p cholecystitis on 05/27/22and incisional hernia repair on 05/29/22. Reviewed History: Yes Social History Current Living Status: Alone Speech PLF-Current Status Prior Level of Function The patient stated she is currently at cognitive linguistic baseline. Per patient, she was "confused" when she was initially admitted, however, has returned to baseline function. Subjective The patient was seated upright in her recliner, awake and alert, upon entrance to her room by the clinician. The patient greeted the clinician appropriately and was agreeable to participation in the cognitive linguistic assessment. Language Eval: Auditory Comprehends Simple Yes/No Ques: Functional Indent/Objects Multiple Rose: Functional Follows 1-Step Commands: Functional Follows General Conversations: Functional Language Eval: Verbal Language Completes Spontaneous Greeting: Functional Produces Auto, Serial Info: Functional Imitates Simple Words/Phrases: Functional Word Finding: Functional Requests Basic Needs: Functional States Basic Personal Info: Functional Language Evaluation: Reading Follows Simple Written Direct: Functional Language Evaluation: Writing Writes to Simple Dictation: Functional Cognitive Patient Orientation The patient was independently oriented to self, location, month, day of the week, and year. Objective Cognitive Domain Attention: WNL Memory: WNL Problem Solving: Functional Executive Functions: WNL Visuospatial Skills: WNL Composite Severity Rating: WNL Clock Drawing Severity Rating: WNL Objective Formal/Standardized Tests [facility] Mental Status ([facility]) Results The patient demonstrated a result of +30/30 on the SLUMS correlating to cognitive linguistic skills within normal limits. Oral Motor/Speech Production The patient does not display dysarthria or apraxia of speech at this time. The patient is 100% intelligible in known and unknown contexts. Impression The patient displays intact neurocognitive skills. Speech Patient Assess Expression of Ideas/Wants: Expression (4) Understanding Verbal Content: Understands (4) Brief Interview-Mental Status: Yes Repetition of Three Words: Three (3) Temporal Orientation: Year: Correct (3) Temporal Orientation: Month: Accurate within 5 days(2) Temporal Orientation: Day: Correct (1) Recall : Wear to say "Sock": Yes, no cue required (2) Recall : Color: Yes, no cue required (2) Recall : Bed: Yes, no cue required (2) Memory/Recall Ability: Current season, That he or she is in a hsp/hsp unit Speech-Plan Treatment Plan Speech Therapy Treatment Plan: Discontinue ST Treatment Duration: Jun 01, 2022 Frequency: 1 time per week Estimated Hrs Per Day: .5 hour per day Rehab Potential: Fair Safety Risks/Education Teaching Recipient: Patient Teaching Methods: Discussion Response to Teaching: Verbalize Understanding Education Topics Provided: Results, Recommendations, Plan of Care Time Speech Therapy Time In: 10:30 Speech Therapy Time Out: 11:00 Total Billed Time: 30 Billed Treatment Time 1, RUBINA BARTON [facility] ST Jun 01, 2022 11:55
[2022-06-01] MEDS ORDERED: PATIENT MAY USE OWN MED,SINGLE MED PO SCH ×2 (12:00→17:45)
[2022-06-01] MEDS: HYDROcodone/APAP 7.5 MG/325 MG (LORTAB, LORCET PLUS) TABLET PO PRN (12:38)
[2022-06-01] MEDS ORDERED: diphenhydrAMINE 25 MG TAB (BENADRYL) PO PRN (12:45)
[2022-06-01] MEDS ORDERED: ARTIFICAL TEARS 0.4 ML UNIT DOSE (REFRESH PLUS) OU PRN (13:00)
--- NOTE | 2022-06-01 13:42 | Physical Therapy Daily Note ---
PT Daily Note-Current Subjective Pt sitting in recliner with B LE elevated. Pt agrees to PT. Pain Section J - Health Conditions 1. Rarely or not at all 2. Occasionally 3. Frequently 4. Almost constantly 8. Unable to answer Pain Effect on Sleep: 2 Pain Interference with Therapy: 1 Pain Interference w/Day-to-Day: 1 Mental Status Patient Orientation: Person, Confused, Place Attachments: Oxygen Transfers SCALE: Activities may be completed with or without assistive devices. 9-Hchfwgmvne-ofioekd completes the activity by him/herself with no assistance from a helper. 5-Set-up or Clean-up Assistance-helper sets up or cleans up; patient completes activity. Vista assists only prior to or following the activity. 4-Supervision or Touching Assistance-helper provides verbal cues and/or touching/steadying and/or contact guard assistance as patient completes activity. Assistance may be provided throughout the activity or intermittently. 3-Partial/Moderate Assistance-helper does LESS THAN HALF the effort. Vista lifts, holds or supports trunk or limbs, but provides less than half the effort. 2-Substantial/Maximal Assistance-helper does MORE THAN HALF the effort. Vista lifts or holds trunk or limbs and provides more than half the effort. 8-Fblzleees-eievbu does ALL the effort. Patient does none of the effort to complete the activity. Or, the assistance of 2 or more helpers is required for the patient to complete the activity. If activity was not attempted, code reason: 7-Patient Refused. 9-Not Applicable-not attempted and the patient did not perform the activity before the current illness, exacerbation or injury. 10-Not Attempted due to Environmental Limitations-(lack of equipment, weather restraints, etc.). 88-Not Attempted due to Medical Conditions or Safety Concerns. Weight Bearing Full Weight Bearing Exercises Supine Ex: Ankle pumps, Quad Set, Glut sets, Heel Slides, Short Arc Quads, Straight leg raise, Hip abd/add Supine Reps: 10 (3 sets of 10 reps) Seated Therapy Exercises: Ankle pumps, Long arc quads, Hip flexion, Hip abd/add, Glut set Seated Reps: 10 (3 sets of 10 reps) Treatments 930-1030: Pt is issued and reviews/completes written HEP for supine & Seated Ex. Pt takes RB between each set of 10 reps. Pt concerned with abdominal discomfort. CLASSIFICATION AND TREATMENT DIRECTOR instructs in positional changes to aid with prevention of pressure sores. CLASSIFICATION AND TREATMENT DIRECTOR also instructs in Pursed Lip Breathing to aid with pain reduction, aid in lowering BP and HR. Nurse and Wound Care Nurse check pt's B LE for swelling or skin compromise. Pt resting at end of tx in recliner. All needs met, call light in hand. [id number]: Pt has just vomited even after receiving nausea med through pill and patch. CLASSIFICATION AND TREATMENT DIRECTOR and pt discuss pt edu. items such as log rolling and sit to stand from lift chair. Discussion over ways to aid in transfers or movement and limit abdominal discomfort from incisions. Pt resting at end of tx in recliner. Pt declines wanting to tx at this time. All needs met, call light in hand. Assessment Pt demonstrates confusion as well unmotivated to push self, needs encouragement. PT Short Term Goals Short Term Goals Time Frame: Jun 07, 2022 Roll Left & Right: 4 (SBA) Sit to lyin (SBA) Lying to sitting on side of be: 4 (SBA) Sit to stand: 4 (SBA) Chair/jni-ov-avzzn transfer: 4 (SBA) Toilet transfer: 4 (SBA) Car transfer: 4 (SBA) Walk 10 feet: 4 (SBA) Walk 50 feet with two turns: 88 Walk 150 feet: 88 Walking 10ft on uneven surface: 88 1 step (curb): 88 4 steps: 88 12 steps: 88 Picking up objects: 4 (SBA) Does pt use a wc or scooter: Yes Type: Manual PT Plc Programmer Goals Custodial Goals PT Plc Programmer Goals Time Frame: Jun 21, 2022 Roll Left & Right (QC): 6 Sit to Lying (QC): 6 Lying-Sitting on Side/Bed(QC): 6 Sit to Stand (QC): 6 Chair/Wkd-ig-Fesfz Xfer(QC): 6 Toilet Transfer (QC): 6 Car Transfer (QC): 6 Does the Patient Walk: Yes Walk 10 feet (QC): 6 Walk 50ft with 2 Turns (QC): 88 Walk 150 ft (QC): 88 Walking 10ft on Uneven Surface: 88 1 Step (curb) (QC): 88 4 Steps (QC): 88 12 Steps (QC): 88 Picking up an Object (QC): 6 Wheel 50 feet with 2 turns (QC: 6 Wheel 150 feet: 6 PT Plan Problem List Problem List: Activity Tolerance, Functional Strength Treatment/Plan Treatment Plan: Continue Plan of Care Treatment Plan: Bed Mobility, Education, Functional Activity Marjorie, Functional Strength, Group Therapy, Gait, Safety, Therapeutic Exercise, Transfers Treatment Duration: Jun 21, 2022 Frequency: At least 5 of 7 days/Wk (IRF) Estimated Hrs Per Day: 1.5 hours per day Patient and/or Family Agrees t: Yes Safety Risks/Education Patient Education: Transfer Techniques, Issued Written HEP, Correct Positioning, Safety Issues Teaching Recipient: Patient Teaching Methods: Discussion Response to Teaching: Verbalize Understanding Time Time In: 930 Time Out: 1030 Total Billed Treatment Time: 60 Total Billed Treatment 930-1030: 1, EX x3 (40m) & FA (20m) [id number]: 1, FA (15m) KELSEY VILLA CLASSIFICATION AND TREATMENT DIRECTOR Jun 01, 2022 13:42
[2022-06-01] MEDS: cloNIDine 0.1 MG (CATAPRES) TAB PO PRN (13:56)
--- NOTE | 2022-06-01 14:24 | Progress Note ---
Subjective Date Seen by a Provider: Jun 01, 2022 Time Seen by a Provider: 13:00 Subjective/Events-last exam doing ok. sitting in chair upright. pain controlled. states she did have an episode of nausea/vomiting after eating fruit today for lunch. no fever/chills Objective Exam Vital Signs Date Time Temp Pulse Resp B/P (MAP) Pulse Ox O2 Delivery O2 Flow Rate FiO2 06/01/22 09:39 Nasal Cannula 3.00 06/01/22 08:42 36.1 178/92 (120) 96 Nasal Cannula 3.00 06/01/22 07:21 36.8 87 18 179/113 (135) 93 Nasal Cannula 3.00 05/31/22 21:10 Nasal Cannula 3.00 05/31/22 20:01 37.3 80 16 148/70 (96) 97 Nasal Cannula 3.00 05/31/22 15:02 Nasal Cannula 2.50 I & O 06/01/22 07:00 Intake Total 850 ml Balance 850 ml Capillary Refill : General Appearance: No Apparent Distress HEENT: PERRL/EOMI Neck: Full Range of Motion Respiratory: Chest Non Tender, Lungs Clear Cardiovascular: Regular Rate, Rhythm Gastrointestinal: normal bowel sounds, soft, tenderness, other (wounds clean/dry, no redness erythema, no hernias) Extremity: Normal Capillary Refill Neurologic/Psychiatric: Alert, Oriented x3 Skin: Normal Color Lymphatic: No Adenopathy Results Lab Laboratory Tests 06/01/22 05:30: White Blood Count 7.9, Red Blood Count 4.10, Hemoglobin 11.6, Hematocrit 38, Mean Corpuscular Volume 92, Mean Corpuscular Hemoglobin 28, Mean Corpuscular Hemoglobin Concent 31L, Red Cell Distribution Width 14.7H, Platelet Count 220, Mean Platelet Volume 9.6, Immature Granulocyte % (Auto) 0, Neutrophils (%) (Auto) 74, Lymphocytes (%) (Auto) 7L, Monocytes (%) (Auto) 12, Eosinophils (%) (Auto) 7, Basophils (%) (Auto) 0, Neutrophils # (Auto) 5.8, Lymphocytes # (Auto) 0.6L, Monocytes # (Auto) 0.9, Eosinophils # (Auto) 0.5H, Basophils # (Auto) 0.0, Immature Granulocyte # (Auto) 0.0, Sodium Level 136, Potassium Level 3.7, Chloride Level 96L, Carbon Dioxide Level 30, Anion Gap 10, Blood Urea Nitrogen 5L, Creatinine 0.59L, Estimat Glomerular Filtration Rate 97, BUN/Creatinine Ratio 8, Glucose Level 118H, Calcium Level 8.9, Corrected Calcium 9.5, Total Bilirubin 0.6, Aspartate Amino Transf (AST/SGOT) 16, Alanine Aminotransferase (ALT/SGPT) 15, Alkaline Phosphatase 55, Total Protein 5.8L, Albumin 3.2 Assessment/Plan Assessment/Plan Assess & Plan/Chief Complaint s/p laparoscopic cholecystectomy for calculous cholecystitis, sbo with incisional hernia s/p open repair with mesh, disuse myopathy. nausea/vomiting likely to persist for some amount of time due to the magnitude of gallbladder dilatation. will start phenergan PRN. cont ARU. cont previous home meds including macrobid for chronic UTI and protonix for GERD/PUD. FER MICHELLE MD Jun 01, 2022 14:24
[2022-06-01] MEDS: PROMETHAZINE 25 MG (PHENERGAN) TAB PO PRN ×3 (14:50→21:03)
[2022-06-01 17:32] VITALS: BP 160/91
[2022-06-01 20:12] VITALS: BP 133/83
[2022-06-01] MEDS: ARTIFICAL TEARS 0.4 ML UNIT DOSE (REFRESH PLUS) OU SCH (20:34)
[2022-06-01] MEDS: OXYBUTYNIN (DITROPAN) 5 MG TAB PO SCH (20:34)
[2022-06-01] MEDS: MULTIVIT W/MINERALS TAB (THERAGRAN M) PO SCH (20:37)
[2022-06-01] MEDS ORDERED: SOY GERM PO SCH (21:00)
[2022-06-01] MEDS ORDERED: PUMPKIN SEED EXTRACT PO SCH (21:00)
[2022-06-01] MEDS ORDERED: [UNRECOGNIZED DRUG - OTHER] PO SCH (21:00)
[2022-06-01] MEDS: PANTOPRAZOLE 40 MG (PROTONIX) TAB PO SCH (21:03)
[2022-06-01] MEDS: LATANOPROSTENE BUNOD 0.024% OU SCH (21:04)
[2022-06-01] MEDS: MICONAZOLE 2% POWDER (DESENEX AF) 90 GM TOP SCH (21:06)
[2022-06-01] MEDS: [UNRECOGNIZED DRUG - REMARK] SL SCH (21:22)
[2022-06-01] MEDS: OXcarbazepine (TRILEPTAL) 300 MG TAB PO SCH (21:24)
[2022-06-01] MEDS: NITROFURANTOIN 100 MG (MACROBID) CAPSULE PO SCH (21:25)
[2022-06-02] MEDS: PROMETHAZINE 25 MG (PHENERGAN) TAB PO PRN ×5 (00:15→20:32)
[2022-06-02] MEDS: ONDANSETRON 4 MG (ZOFRAN) ORAL DISSOLVE TAB PO PRN ×3 (02:42→15:02)
[2022-06-02] MEDS: ENOXAPARIN 40 MG/0.4 ML (LOVENOX) SYR SC SCH ×2 (05:29→16:14)
--- NOTE | 2022-06-02 06:28 | PM&R Progress Note ---
Subjective HPI/CC On Admission Date Seen by Provider: Jun 02, 2022 Time Seen by Provider: 09:00 Subjective/Events-last exam 06/02/2022: BP is still elevated Clonidine was given Zofran and Imodium given Pt is wheelchair bound at home Will monitor closely 06/01/2022: Pt is doing well BP is very elevated Checked meds and labs Myopathy is an issue Appears she is mostly sedentary at home Otherwise doing well Review of Systems General: Fatigue, Malaise Gastrointestinal: Abdominal Pain Objective Exam Vital Signs Vital Signs Date Time Temp Pulse Resp B/P (MAP) Pulse Ox O2 Delivery O2 Flow Rate FiO2 06/02/22 20:22 37.0 80 20 139/72 (94) 95 Nasal Cannula 1.00 Capillary Refill : General Appearance: No Apparent Distress, WD/WN, Chronically ill, Obese HEENT: PERRL/EOMI, Normal ENT Inspection, Pharynx Normal Neck: Full Range of Motion, Normal Inspection, Non Tender, Supple, Carotid Bruit Respiratory: Chest Non Tender, Lungs Clear, Normal Breath Sounds, No Accessory Muscle Use, No Respiratory Distress, Decreased Breath Sounds Cardiovascular: Regular Rate, Rhythm, No Edema, No Gallop, No JVD, No Murmur, Normal Peripheral Pulses Gastrointestinal: Normal Bowel Sounds, No Organomegaly, No Pulsatile Mass, Soft, Tenderness Back: Normal Inspection, No CVA Tenderness, No Vertebral Tenderness Extremity: Normal Capillary Refill, Normal Inspection, Normal Range of Motion, Non Tender, No Calf Tenderness, No Pedal Edema Neurologic/Psychiatric: Alert, Oriented x3, No Motor/Sensory Deficits, medical laboratory technicians II- XII Norm as Tested, Abnormal Gait, Depressed Affect, Motor Weakness (Generalized all extremities 3/5) Skin: Normal Color, Warm/Dry Lymphatic: No Adenopathy Results/Procedures Lab Patient resulted labs reviewed. FIM Transfers Therapy Code Descriptions/Definitions Functional [place] Measure: 0=Not Assessed/NA 4=Minimal Assistance 1=Total Assistance 5=Supervision or Setup 2=Maximal Assistance 6=Modified [place] 3=Moderate Assistance 7=Complete IndependenceSCALE: Activities may be completed with or without assistive devices. 8-Xazxpziiwe-yvbhajs completes the activity by him/herself with no assistance from a helper. 5-Set-up or Clean-up Assistance-helper sets up or cleans up; patient completes activity. [place] assists only prior to or following the activity. 4-Supervision or Touching Assistance-helper provides verbal cues and/or touching/steadying and/or contact guard assistance as patient completes activity. Assistance may be provided throughout the activity or intermittently. 3-Partial/Moderate Assistance-helper does LESS THAN HALF the effort. [place] lifts, holds or supports trunk or limbs, but provides less than half the effort. 2-Substantial/Maximal Assistance-helper does MORE THAN HALF the effort. [place] lifts or holds trunk or limbs and provides more than half the effort. 7-Pjpjdzqeg-wbiteh does ALL the effort. Patient does none of the effort to complete the activity. Or, the assistance of 2 or more helpers is required for the patient to complete the activity. If activity was not attempted, code reason: 7-Patient Refused. 9-Not Applicable-not attempted and the patient did not perform the activity before the current illness, exacerbation or injury. 10-Not Attempted due to Environmental Limitations-(lack of equipment, weather restraints, etc.). 88-Not Attempted due to Medical Conditions or Safety Concerns. Roll Left to Right (QC): 3 Sit to Lying (QC): 3 Sit to Stand (QC): 4 Chair/Rav-xp-Rqtyc Xfer(QC): 4 Car Transfer (QC): 4 Gait Training Does the Patient Walk?: Yes Walk 10 feet (QC): 88 Walk 50 ft with 2 Turns(QC): 88 Walk 150 ft (QC): 88 Walking 10ft/uneven surface-QC: 88 Gait Assistive Device: FWW Wheelchair Training Does the Pt Use a Wheelchair?: Yes Distance: 150', 50', 50', 100' Wheel 50 ft with 2 turns (QC): 6 Wheel 150 ft (QC): 6 Type of Wheelchair: Manual Stair Training 1 Step (curb) (QC): 88 4 Steps (QC): 88 12 Steps (QC): 88 Balance Picking up an Object (QC): 4 (using research and development chemist) ADL-Treatment Eating (QC): 6 Oral Hygiene (QC): 5 Shower/Bathe Self (QC): 5 Upper Body Dressing (QC): 5 (Pt able to adjust abdominal binder while on body) Lower Body Dressing (QC): 3 On/Off Footwear (QC): 5 Toileting Hygiene (QC): 4 Toilet Transfer (QC): 4 Assessment/Plan Assessment and Plan Assess & Plan/Chief Complaint Assessment: Disuse myopathy Recent cholecystectomy Continued abdominal pain Mental illness Slow recovery Hypertension Hypothyroidism Hyperlipidemia Morbid obesity Pulmonary hypertension Plan: Aggressive rehab Home meds Supportive care 06/01/2022: Supportive care Blood pressure meds Continue recovery 06/02/2022: May be willing to see Behavioral Health due to increased depression but she will let me know Monitor BP (1) Myopathy (2) Super obesity Status: Chronic (3) Primary hypertension (4) Chronic heart failure with preserved ejection fraction (5) Gallstones Status: Acute (6) S/P laparoscopic cholecystectomy Status: Acute (7) Pulmonary hypertension JENNIE CAM DO Jun 02, 2022 06:28
[2022-06-02 07:41] VITALS: BP 172/84
[2022-06-02 07:43] VITALS: BP 172/84
[2022-06-02] MEDS: UMECLIDINIUM BROMIDE (INCRUSE ELLIPTA) 7'S IH SCH (07:52)
[2022-06-02] MEDS: RT--FLUTICASONE/SALMETEROL 232-14 (AIRDUO RespiCLICK) IH SCH ×2 (07:52→21:00)
[2022-06-02] MEDS: polyethylene glycoL POWDER 17 GM (MIRALAX) PACK PO SCH ×2 (08:18→22:03)
[2022-06-02] MEDS: SENNA W/DOCUSATE (SENOKOT S) TABLET PO SCH ×2 (08:18→22:03)
[2022-06-02] MEDS: DOCUSATE SODIUM 100 MG (COLACE) CAP PO SCH ×2 (08:18→22:03)
[2022-06-02] MEDS: LOPERAMIDE 2 MG (IMODIUM) TABLET PO PRN ×5 (09:02→20:32)
[2022-06-02] MEDS: cloNIDine 0.1 MG (CATAPRES) TAB PO PRN (09:03)
--- NOTE | 2022-06-02 09:13 | Occupational Ther Daily Note ---
OT Current Status-Daily Note Subjective Pt sitting in recliner, alert. Pt agrees to therapy. Pt c/o no pain but continues to have nausea and diarrhea. Mental Status/Objective Patient Orientation: Person, Place, Time, Situation Attachments: IV, Oxygen ADL-Treatment Pt bathed upper body and raya area after set up. Declined other areas to bath. Pt dressed upper body by self after set up. Pt used AE to doff socks and lace feet through pants. Nursing staff donned socks on pt due to dressing change. Pt transferred from sit to stand using FWW, SBA to ambulate to w/c. Pt propelled to restroom in w/c and transferred on and off toilet with SBA. Pt completed all toilet hygiene by self. Pt took an extended amount of time in the restroom due to loose stool. Pt propelled back to room in w/c. Pt continues to have increased nausea. BP 143/89 and oxygen 92 on room air after dressing. Pt seated in w/c at end of session. Call light/phone in reach. All needs met in room. Therapy Code Descriptions/Definitions Functional [place] Measure: 0=Not Assessed/NA 4=Minimal Assistance 1=Total Assistance 5=Supervision or Setup 2=Maximal Assistance 6=Modified [place] 3=Moderate Assistance 7=Complete IndependenceSCALE: Activities may be completed with or without assistive devices. 2-Xeywtqosgw-dlwtiqw completes the activity by him/herself with no assistance from a helper. 5-Set-up or Clean-up Assistance-helper sets up or cleans up; patient completes activity. [place] assists only prior to or following the activity. 4-Supervision or Touching Assistance-helper provides verbal cues and/or touching/steadying and/or contact guard assistance as patient completes activity. Assistance may be provided throughout the activity or intermittently. 3-Partial/Moderate Assistance-helper does LESS THAN HALF the effort. [place] lifts, holds or supports trunk or limbs, but provides less than half the effort. 2-Substantial/Maximal Assistance-helper does MORE THAN HALF the effort. [place] lifts or holds trunk or limbs and provides more than half the effort. 2-Nkbxcjyee-bxvjcq does ALL the effort. Patient does none of the effort to complete the activity. Or, the assistance of 2 or more helpers is required for the patient to complete the activity. If activity was not attempted, code reason: 7-Patient Refused. 9-Not Applicable-not attempted and the patient did not perform the activity before the current illness, exacerbation or injury. 10-Not Attempted due to Environmental Limitations-(lack of equipment, weather restraints, etc.). 88-Not Attempted due to Medical Conditions or Safety Concerns. Upper Body Dressing (QC): 5 Lower Body Dressing (QC): 5 On/Off Footwear: 3 Toileting Hygiene (QC): 5 Toilet Transfer (QC): 4 Pt took increased time to complete all tasks during session. Throughout session, pt is nauseous then had diarrhea multiple times. Pt able to cleanse self while sitting on stool for a lengthy period of time. Reported to nrsg and nrsg in room multiple times checking on pt. OT Short Term Goals Short Term Goals Time Frame: Jun 04, 2022 Upper body dressin Lower body dressin OT White Lead Filterer Goals White Lead Filterer Goals Time Frame: Jun 18, 2022 Acute change in mental status: 0 Inattention: 0 Disorganized thinkin Altered level of consciousness: 0 Eating (QC): 6 Oral Hygiene (QC): 6 Toileting Hygiene (QC): 6 Shower/Bathe Self (QC): 6 Upper Body Dressing (QC): 6 Lower Body Dressing (QC): 6 On/Off Footwear (QC): 6 Additional Goals: 1-Demonstrate ADL Tasks, 2-Verbalize Understanding, 3- ImproveStrength/Marjorie 1=Demonstrate adherence to instructed precautions during ADL tasks. 2=Patient will verbalize/demonstrate understanding of assistive devices/modifications for ADL. 3=Patient will improve strength/tolerance for activity to enable patient to perform ADL's. OT Education/Plan Problem List/Assessment Assessment: Decreased Activ Tolerance, Impaired Self-Care Skills Pt requires assistance with showering, some ADLs, and IADLs at [facility]. She has assistance 2 times a week with showering and dressing, but on the other days she is able to dress herself and manage around her house at w/c level. Pt will be seen by OT in order to increase BUE strength and activity tolerance, and increase safety and independence with ADLs in order maximize LOF for safe return home. Discharge Recommendations Plan/Recommendations: Continue POC Treatment Plan/Plan of Care Patient would benefit from OT for education, treatment and training to promote independence in ADL's, mobility, safety and/or upper extremity function for ADL's. Plan of Care: ADL Retraining, Functional Mobility, Group Exercise/Act as Ind, UE Funct Exercise/Act Treatment Duration: Jun 18, 2022 Frequency: At least 5 of 7 days/Wk (IRF) Estimated Hrs Per Day: 1.5 hours per day Agreement: Yes Rehab Potential: Fair Time Start Time: 08:00 Stop Time: 09:30 Total Time Billed (hr/min): 90 Billed Treatment Time 1 visit ADL 6 (90 min) GIANLUCA GOODEN Jun 02, 2022 09:13
[2022-06-02] MEDS: ALPRAZolam 0.5 MG (XANAX) TAB PO SCH ×2 (10:11→22:05)
[2022-06-02] MEDS: amLODIPine 10 MG (NORVASC) TAB PO SCH (10:11)
[2022-06-02] MEDS: PANTOPRAZOLE 40 MG (PROTONIX) TAB PO SCH ×2 (10:12→21:57)
[2022-06-02] MEDS: DORZOLAMIDE/TIMOLOL (COSOPT) 2-0.68% 10 ML BTL OU SCH ×2 (10:15→22:02)
[2022-06-02] MEDS: [UNRECOGNIZED DRUG - REMARK] SL SCH ×2 (10:15→21:56)
[2022-06-02] MEDS: ASPIRIN E.C. 81 MG (ECOTRIN) TAB PO SCH (10:17)
[2022-06-02 10:36] VITALS: BP 152/81
--- NOTE | 2022-06-02 11:17 | Physical Therapy Daily Note ---
PT Daily Note-Current Subjective Pt sitting up in [facility] upon arrival. Pt agrees to PT but reports continued nausea near to the point of vomiting. Nausea med given and pt nibbles on toast during tx. Pain Location: Right, Left Location Body Site: Hip Pain Description: Tightness Comment: Reports but doesn't rate, advised probably tight due to sitting regularly Section J - Health Conditions 1. Rarely or not at all 2. Occasionally 3. Frequently 4. Almost constantly 8. Unable to answer Pain Effect on Sleep: 2 Pain Interference with Therapy: 1 Pain Interference w/Day-to-Day: 1 Mental Status Patient Orientation: Person, Place, Time, Situation Attachments: Oxygen Transfers SCALE: Activities may be completed with or without assistive devices. 4-Vryjngbokh-okrglim completes the activity by him/herself with no assistance from a helper. 5-Set-up or Clean-up Assistance-helper sets up or cleans up; patient completes activity. [place] assists only prior to or following the activity. 4-Supervision or Touching Assistance-helper provides verbal cues and/or touching/steadying and/or contact guard assistance as patient completes activity. Assistance may be provided throughout the activity or intermittently. 3-Partial/Moderate Assistance-helper does LESS THAN HALF the effort. [place] lifts, holds or supports trunk or limbs, but provides less than half the effort. 2-Substantial/Maximal Assistance-helper does MORE THAN HALF the effort. [place] lifts or holds trunk or limbs and provides more than half the effort. 2-Mpdpjwyqm-kcpall does ALL the effort. Patient does none of the effort to complete the activity. Or, the assistance of 2 or more helpers is required for the patient to complete the activity. If activity was not attempted, code reason: 7-Patient Refused. 9-Not Applicable-not attempted and the patient did not perform the activity bef ore the current illness, exacerbation or injury. 10-Not Attempted due to Environmental Limitations-(lack of equipment, weather r estraints, etc.). 88-Not Attempted due to Medical Conditions or Safety Concerns. Sit to Lying (QC): 4 Sit to Stand (QC): 4 Weight Bearing Full Weight Bearing Wheelchair Training Does the Pt Use a Wheelchair?: Yes Type of Wheelchair: Manual Exercises Seated Therapy Exercises: Ankle pumps, Long arc quads, Glut set Seated Reps: 15 (a couple sets w/RB in between) Treatments Pt completes Seated EX in [facility] in between taking morning meds and eating toast. Pt and FIELD TECHNICIAN discuss need for pushing self to see improvement to PLOF. FIELD TECHNICIAN emphases need to change position to prevent stiffness/tightness and stretch abdomen for comfort. Pt continues to demonstrate feeling nauseated, needing bucket frequently but no vomit. Pt asked to TF to Supine in bed at end of tx. All needs met, call light in hand. Assessment Current Status: Poor Progress Nausea and pain limit tx. Pt remains hyperfocused throughout tx on it. PT Short Term Goals Short Term Goals Time Frame: Jun 07, 2022 Roll Left & Right: 4 (SBA) Sit to lyin (SBA) Lying to sitting on side of be: 4 (SBA) Sit to stand: 4 (SBA) Chair/jbf-gf-jnefo transfer: 4 (SBA) Toilet transfer: 4 (SBA) Car transfer: 4 (SBA) Walk 10 feet: 4 (SBA) Walk 50 feet with two turns: 88 Walk 150 feet: 88 Walking 10ft on uneven surface: 88 1 step (curb): 88 4 steps: 88 12 steps: 88 Picking up objects: 4 (SBA) Does pt use a wc or scooter: Yes Type: Manual PT Jail Goals Jail Goals PT Veneer Matcher Goals Time Frame: Jun 21, 2022 Roll Left & Right (QC): 6 Sit to Lying (QC): 6 Lying-Sitting on Side/Bed(QC): 6 Sit to Stand (QC): 6 Chair/Tji-ex-Oervc Xfer(QC): 6 Toilet Transfer (QC): 6 Car Transfer (QC): 6 Does the Patient Walk: Yes Walk 10 feet (QC): 6 Walk 50ft with 2 Turns (QC): 88 Walk 150 ft (QC): 88 Walking 10ft on Uneven Surface: 88 1 Step (curb) (QC): 88 4 Steps (QC): 88 12 Steps (QC): 88 Picking up an Object (QC): 6 Wheel 50 feet with 2 turns (QC: 6 Wheel 150 feet: 6 PT Plan Problem List Problem List: Activity Tolerance, Functional Strength Treatment/Plan Treatment Plan: Continue Plan of Care Treatment Plan: Bed Mobility, Education, Functional Activity Marjorie, Functional Strength, Group Therapy, Gait, Safety, Therapeutic Exercise, Transfers Treatment Duration: Jun 21, 2022 Frequency: At least 5 of 7 days/Wk (IRF) Estimated Hrs Per Day: 1.5 hours per day Patient and/or Family Agrees t: Yes Safety Risks/Education Patient Education: Transfer Techniques, Correct Positioning, Safety Issues Teaching Recipient: Patient Teaching Methods: Discussion Response to Teaching: Return Demonstration Time Time In: 930 Time Out: 1100 Total Billed Treatment Time: 90 Total Billed Treatment 1, EX x3 (45m) & FA x3 (45m) KELSEY VILLA FIELD TECHNICIAN Jun 02, 2022 11:17
[2022-06-02] MEDS: NITROFURANTOIN 100 MG (MACROBID) CAPSULE PO SCH ×2 (11:48→21:57)
[2022-06-02 13:15] VITALS: BP 169/84
[2022-06-02] MEDS: MICONAZOLE 2% POWDER (DESENEX AF) 90 GM TOP SCH ×2 (15:04→21:57)
[2022-06-02] MEDS: CALCIUM CARB + VIT D 600 MG (CALCARB + D) TAB PO SCH (15:47)
[2022-06-02] MEDS: ARTIFICAL TEARS 0.4 ML UNIT DOSE (REFRESH PLUS) OU SCH ×2 (15:47→22:03)
[2022-06-02] MEDS: TERBINAFINE 1% CREAM 1 OZ (LamISIL) TUBE TP SCH (15:48)
[2022-06-02 20:22] VITALS: BP 139/72
[2022-06-02] MEDS: HYDROcodone/APAP 7.5 MG/325 MG (LORTAB, LORCET PLUS) TABLET PO PRN (20:32)
[2022-06-02] MEDS: LATANOPROSTENE BUNOD 0.024% OU SCH (21:55)
[2022-06-02] MEDS: OXcarbazepine (TRILEPTAL) 300 MG TAB PO SCH (21:57)
[2022-06-02] MEDS: OXYBUTYNIN (DITROPAN) 5 MG TAB PO SCH (22:03)
[2022-06-02] MEDS: MULTIVIT W/MINERALS TAB (THERAGRAN M) PO SCH (22:04)
--- NOTE | 2022-06-03 05:23 | PM&R Progress Note ---
Subjective HPI/CC On Admission Date Seen by Provider: Jun 03, 2022 Time Seen by Provider: 10:00 Subjective/Events-last exam 06/03/2022: Patient doing well No major issues Last depression today Checked meds labs 06/02/2022: BP is still elevated Clonidine was given Zofran and Imodium given Pt is wheelchair bound at home Will monitor closely 06/01/2022: Pt is doing well BP is very elevated Checked meds and labs Myopathy is an issue Appears she is mostly sedentary at home Otherwise doing well Review of Systems General: Fatigue, Malaise Objective Exam Vital Signs Vital Signs Date Time Temp Pulse Resp B/P (MAP) Pulse Ox O2 Delivery O2 Flow Rate FiO2 06/03/22 20:30 95 Nasal Cannula 2.00 06/03/22 20:25 37.0 73 20 133/65 (87) Capillary Refill : General Appearance: No Apparent Distress, WD/WN, Chronically ill, Obese HEENT: PERRL/EOMI, Normal ENT Inspection, Pharynx Normal Neck: Full Range of Motion, Normal Inspection, Non Tender, Supple, Carotid Bruit Respiratory: Chest Non Tender, Lungs Clear, Normal Breath Sounds, No Accessory Muscle Use, No Respiratory Distress, Decreased Breath Sounds Cardiovascular: Regular Rate, Rhythm, No Edema, No Gallop, No JVD, No Murmur, Normal Peripheral Pulses Gastrointestinal: Normal Bowel Sounds, No Organomegaly, No Pulsatile Mass, Soft, Tenderness Back: Normal Inspection, No CVA Tenderness, No Vertebral Tenderness Extremity: Normal Capillary Refill, Normal Inspection, Normal Range of Motion, Non Tender, No Calf Tenderness, No Pedal Edema Neurologic/Psychiatric: Alert, Oriented x3, No Motor/Sensory Deficits, terrazzo tile maker II- XII Norm as Tested, Abnormal Gait, Depressed Affect, Motor Weakness (Generalized all extremities 3/5) Skin: Normal Color, Warm/Dry Lymphatic: No Adenopathy Results/Procedures Lab Patient resulted labs reviewed. FIM Transfers Therapy Code Descriptions/Definitions Functional [place] Measure: 0=Not Assessed/NA 4=Minimal Assistance 1=Total Assistance 5=Supervision or Setup 2=Maximal Assistance 6=Modified [place] 3=Moderate Assistance 7=Complete IndependenceSCALE: Activities may be completed with or without assistive devices. 9-Twwobvediy-umrtybq completes the activity by him/herself with no assistance from a helper. 5-Set-up or Clean-up Assistance-helper sets up or cleans up; patient completes activity. [place] assists only prior to or following the activity. 4-Supervision or Touching Assistance-helper provides verbal cues and/or touching/steadying and/or contact guard assistance as patient completes activity. Assistance may be provided throughout the activity or intermittently. 3-Partial/Moderate Assistance-helper does LESS THAN HALF the effort. [place] lifts, holds or supports trunk or limbs, but provides less than half the effort. 2-Substantial/Maximal Assistance-helper does MORE THAN HALF the effort. [place] lifts or holds trunk or limbs and provides more than half the effort. 8-Rrhgizekr-pfnysk does ALL the effort. Patient does none of the effort to complete the activity. Or, the assistance of 2 or more helpers is required for the patient to complete the activity. If activity was not attempted, code reason: 7-Patient Refused. 9-Not Applicable-not attempted and the patient did not perform the activity before the current illness, exacerbation or injury. 10-Not Attempted due to Environmental Limitations-(lack of equipment, weather restraints, etc.). 88-Not Attempted due to Medical Conditions or Safety Concerns. Roll Left to Right (QC): 3 Sit to Lying (QC): 4 Sit to Stand (QC): 4 Chair/Jel-qj-Tqwql Xfer(QC): 4 Car Transfer (QC): 4 Gait Training Does the Patient Walk?: Yes Walk 10 feet (QC): 88 Walk 50 ft with 2 Turns(QC): 88 Walk 150 ft (QC): 88 Walking 10ft/uneven surface-QC: 88 Gait Assistive Device: FWW Wheelchair Training Does the Pt Use a Wheelchair?: Yes Distance: 150', 50', 50', 100' Wheel 50 ft with 2 turns (QC): 6 Wheel 150 ft (QC): 6 Type of Wheelchair: Manual Stair Training 1 Step (curb) (QC): 88 4 Steps (QC): 88 12 Steps (QC): 88 Balance Picking up an Object (QC): 4 (using playground equipment erector) ADL-Treatment Eating (QC): 6 Oral Hygiene (QC): 5 Shower/Bathe Self (QC): 5 Upper Body Dressing (QC): 5 Lower Body Dressing (QC): 5 On/Off Footwear (QC): 3 Toileting Hygiene (QC): 5 Toilet Transfer (QC): 4 Assessment/Plan Assessment and Plan Assess & Plan/Chief Complaint Assessment: Disuse myopathy Recent cholecystectomy Continued abdominal pain Mental illness Slow recovery Hypertension Hypothyroidism Hyperlipidemia Morbid obesity Pulmonary hypertension Plan: Aggressive rehab Home meds Supportive care 06/01/2022: Supportive care Blood pressure meds Continue recovery 06/02/2022: May be willing to see Behavioral Health due to increased depression but she will let me know Monitor BP 06/03/2022: Supportive care (1) Myopathy (2) Super obesity Status: Chronic (3) Primary hypertension (4) Chronic heart failure with preserved ejection fraction (5) Gallstones Status: Acute (6) S/P laparoscopic cholecystectomy Status: Acute (7) Pulmonary hypertension JENNIE CAM DO Jun 03, 2022 05:23
[2022-06-03] MEDS: ENOXAPARIN 40 MG/0.4 ML (LOVENOX) SYR SC SCH ×2 (05:53→16:28)
[2022-06-03 08:00] VITALS: BP 139/72
--- NOTE | 2022-06-03 09:08 | Occupational Ther Daily Note ---
OT Current Status-Daily Note Subjective Pt in recliner, alert. Pt agrees to therapy. Pt c/o no pain or nausea today. Mental Status/Objective Patient Orientation: Person, Place, Time, Situation Attachments: IV, Oxygen (1 L) ADL-Treatment Pt requested to use toilet. Transfer from recliner to w/c using FWW independently. Propelled w/c to bathroom and transferred to toilet with SBA using grabbars. Toileting independently. Pt stated that she has already complete oral care. Declines shower today. Pt independent with eating. Independent with bed mobility. BHATIA placed abdominal binder while pt was supine in bed. Pt rolled independently using bed rails. Therapy Code Descriptions/Definitions Functional [place] Measure: 0=Not Assessed/NA 4=Minimal Assistance 1=Total Assistance 5=Supervision or Setup 2=Maximal Assistance 6=Modified [place] 3=Moderate Assistance 7=Complete IndependenceSCALE: Activities may be completed with or without assistive devices. 0-Ingulwkede-psedaji completes the activity by him/herself with no assistance from a helper. 5-Set-up or Clean-up Assistance-helper sets up or cleans up; patient completes activity. [place] assists only prior to or following the activity. 4-Supervision or Touching Assistance-helper provides verbal cues and/or touching/steadying and/or contact guard assistance as patient completes activity. Assistance may be provided throughout the activity or intermittently. 3-Partial/Moderate Assistance-helper does LESS THAN HALF the effort. [place] lifts, holds or supports trunk or limbs, but provides less than half the effort. 2-Substantial/Maximal Assistance-helper does MORE THAN HALF the effort. [place] lifts or holds trunk or limbs and provides more than half the effort. 7-Lakecyczf-ulvrvx does ALL the effort. Patient does none of the effort to complete the activity. Or, the assistance of 2 or more helpers is required for the patient to complete the activity. If activity was not attempted, code reason: 7-Patient Refused. 9-Not Applicable-not attempted and the patient did not perform the activity b efore the current illness, exacerbation or injury. 10-Not Attempted due to Environmental Limitations-(lack of equipment, weather restraints, etc.). 88-Not Attempted due to Medical Conditions or Safety Concerns. Eating (QC): 6 Oral Hygiene (QC): 6 (Per pt report) Shower/Bathe Self (QC): 7 Toileting Hygiene (QC): 6 Toilet Transfer (QC): 6 Other Treatment Pt participated in hand strengthening activities, sorting and organizing items and grasping small items to improve strength, endurance and skills needed for self care and mobility. Arm bike for 8 min with multiple breaks, no resistance. Resistive clothes pins, 25 pegs each hand. 1/4# wrist wt to complete wrist flex/ext/uln and rad deviation, 1 set 25 reps each. Pt in w/c at end of session. Phone/call light in reach. All needs met in room. OT Short Term Goals Short Term Goals Time Frame: Jun 04, 2022 Upper body dressin Lower body dressin OT Resistance Welding Machine Operator Goals Resistance Welding Machine Operator Goals Time Frame: Jun 18, 2022 Acute change in mental status: 0 Inattention: 0 Disorganized thinkin Altered level of consciousness: 0 Eating (QC): 6 Oral Hygiene (QC): 6 Toileting Hygiene (QC): 6 Shower/Bathe Self (QC): 6 Upper Body Dressing (QC): 6 Lower Body Dressing (QC): 6 On/Off Footwear (QC): 6 Additional Goals: 1-Demonstrate ADL Tasks, 2-Verbalize Understanding, 3- ImproveStrength/Marjorie 1=Demonstrate adherence to instructed precautions during ADL tasks. 2=Patient will verbalize/demonstrate understanding of assistive devices/modifications for ADL. 3=Patient will improve strength/tolerance for activity to enable patient to perform ADL's. OT Education/Plan Problem List/Assessment Assessment: Decreased Activ Tolerance, Impaired Bed Mobility, Impaired Self- Care Skills Pt requires assistance with showering, some ADLs, and IADLs at [facility]. She has assistance 2 times a week with showering and dressing, but on the other days she is able to dress herself and manage around her house at w/c level. Pt will be seen by OT in order to increase BUE strength and activity tolerance, and increase safety and independence with ADLs in order maximize LOF for safe return home. Discharge Recommendations Plan/Recommendations: Continue POC Treatment Plan/Plan of Care Patient would benefit from OT for education, treatment and training to promote independence in ADL's, mobility, safety and/or upper extremity function for ADL's. Plan of Care: ADL Retraining, Functional Mobility, Group Exercise/Act as Ind, UE Funct Exercise/Act Treatment Duration: Jun 18, 2022 Frequency: At least 5 of 7 days/Wk (IRF) Estimated Hrs Per Day: 1.5 hours per day Agreement: Yes Rehab Potential: Fair Time Start Time: 07:30 Stop Time: 09:00 DATE: Jun 03, 2022 Total Time Billed (hr/min): 90 Billed Treatment Time 1 visit-ADL 2 (30 min) EX 4 (60 min) GIANLUCA GOODEN Jun 03, 2022 09:08
[2022-06-03] MEDS: amLODIPine 10 MG (NORVASC) TAB PO SCH (10:28)
[2022-06-03] MEDS: PANTOPRAZOLE 40 MG (PROTONIX) TAB PO SCH ×2 (10:28→21:21)
[2022-06-03] MEDS: NITROFURANTOIN 100 MG (MACROBID) CAPSULE PO SCH ×2 (10:29→21:22)
[2022-06-03] MEDS: ASPIRIN E.C. 81 MG (ECOTRIN) TAB PO SCH (10:30)
[2022-06-03] MEDS: MICONAZOLE 2% POWDER (DESENEX AF) 90 GM TOP SCH ×2 (10:31→21:23)
[2022-06-03] MEDS: TERBINAFINE 1% CREAM 1 OZ (LamISIL) TUBE TP SCH (10:32)
[2022-06-03] MEDS: DORZOLAMIDE/TIMOLOL (COSOPT) 2-0.68% 10 ML BTL OU SCH ×2 (10:33→21:23)
[2022-06-03] MEDS: UMECLIDINIUM BROMIDE (INCRUSE ELLIPTA) 7'S IH SCH (10:34)
[2022-06-03] MEDS: RT--FLUTICASONE/SALMETEROL 232-14 (AIRDUO RespiCLICK) IH SCH ×2 (10:35→20:15)
--- NOTE | 2022-06-03 10:35 | Physical Therapy Daily Note ---
PT Daily Note-Current Subjective Pt. up in w/c, agrees to Rx ,but with some discussion pt. declines most approaches to strengthening and increasing her funct mob. Pt. resists gait and Nustep and standing ex, stating she really just wants to exercise her legs sitting up in w/c or recliner. Pt. states "there is no reason for me to walk in my house, its small I just use the w/c"After some discussion, encouragement and education pt. agreed to walk with FWW and try LE ex in supine. Pain Numeric Pain Scale: 7 Location: Right Location Body Site: Knee Pain Description: Ache Section J - Health Conditions 1. Rarely or not at all 2. Occasionally 3. Frequently 4. Almost constantly 8. Unable to answer Pain Effect on Sleep: 2 Pain Interference with Therapy: 3 Pain Interference w/Day-to-Day: 2 Mental Status Patient Orientation: Normal For Age Attachments: Oxygen (1 to 3 L NC) O2 initially at 1 L as found on portable tank, after some time during Rx pt. c/o SOB , O2 sats found to be significantly low at 78%, nursing consulted who states O2 orders are for 3 L, O2 increased to 3 L and sats quickly increased to 98%. Transfers SCALE: Activities may be completed with or without assistive devices. 2-Ikawjyfxrr-lbegjbj completes the activity by him/herself with no assistance from a helper. 5-Set-up or Clean-up Assistance-helper sets up or cleans up; patient completes activity. [place] assists only prior to or following the activity. 4-Supervision or Touching Assistance-helper provides verbal cues and/or touching/steadying and/or contact guard assistance as patient completes activity. Assistance may be provided throughout the activity or intermittently. 3-Partial/Moderate Assistance-helper does LESS THAN HALF the effort. [place] lifts, holds or supports trunk or limbs, but provides less than half the effort. 2-Substantial/Maximal Assistance-helper does MORE THAN HALF the effort. [place] lifts or holds trunk or limbs and provides more than half the effort. 9-Pgrxunhyf-fjqqff does ALL the effort. Patient does none of the effort to complete the activity. Or, the assistance of 2 or more helpers is required for the patient to complete the activity. If activity was not attempted, code reason: 7-Patient Refused. 9-Not Applicable-not attempted and the patient did not perform the activity before the current illness, exacerbation or injury. 10-Not Attempted due to Environmental Limitations-(lack of equipment, weather restraints, etc.). 88-Not Attempted due to Medical Conditions or Safety Concerns. Roll Left & Right (QC): 6 Sit to Lying (QC): 6 Lying to Sitting/Side of Bed(Q: 6 Sit to Stand (QC): 6 Chair/Ogt-so-Bvsbx Xfer(QC): 6 Toilet Transfer (QC): 6 pt. hesitant to perform sup to sit and sit to sup but with use of simulated rail ( FWW held firmly at her side by this MANAGER COSMETIC) in gym at rx table pt. was Mod I with these TRFs Weight Bearing Full Weight Bearing Gait Training Does the Patient Walk?: Yes Walk 10 feet (QC): 4 Gait Persons Needed: 1 Gait Assistive Device: FWW 10-12 ft x 3 trials with w/c close behind and assist for portable O2, FWW was adjusted to provide improved leverage through her arms and demonstration was done for sequence. This improved pts gait and distance.Pt did fatigue and needed rest breaks Wheelchair Training Does the Pt Use a Wheelchair?: Yes Wheel 50 ft with 2 turns (QC): 4 Wheel 150 ft (QC): 4 Type of Wheelchair: Manual pt. requires full assistance for portable O2 during w/c mobility, began training in room using extended tubing and O2 with awareness of tube and safety Exercises Supine Ex: Ankle pumps, Quad Set, Rolling, Glut sets, Heel Slides, Short Arc Quads, Straight leg raise (L only), Hip abd/add Supine Reps: 12 (x2) Seated Therapy Exercises: Ankle pumps, Sit to stand, Long arc quads, Hip flexion Seated Reps: 10 NuStep Minutes: 3 NuStep Workload: 1 Treatments sit to stands, SPTs, sup to sit, toilet TRFs, w/c mob Assessment Current Status: Good Progress pt. more cooperative for gait, pt. initially resistive of ex for LEs but more cooperative by end of Rx PT Short Term Goals Short Term Goals Time Frame: Jun 07, 2022 Roll Left & Right: 4 (SBA) Sit to lyin (SBA) Lying to sitting on side of be: 4 (SBA) Sit to stand: 4 (SBA) Chair/chm-eo-efoil transfer: 4 (SBA) Toilet transfer: 4 (SBA) Car transfer: 4 (SBA) Walk 10 feet: 4 (SBA) Walk 50 feet with two turns: 88 Walk 150 feet: 88 Walking 10ft on uneven surface: 88 1 step (curb): 88 4 steps: 88 12 steps: 88 Picking up objects: 4 (SBA) Does pt use a wc or scooter: Yes Type: Manual PT Abrasive Coating Machine Operator Goals Abrasive Coating Machine Operator Goals PT Abrasive Coating Machine Operator Goals Time Frame: Jun 21, 2022 Roll Left & Right (QC): 6 Sit to Lying (QC): 6 Lying-Sitting on Side/Bed(QC): 6 Sit to Stand (QC): 6 Chair/Spx-it-Remdi Xfer(QC): 6 Toilet Transfer (QC): 6 Car Transfer (QC): 6 Does the Patient Walk: Yes Walk 10 feet (QC): 6 Walk 50ft with 2 Turns (QC): 88 Walk 150 ft (QC): 88 Walking 10ft on Uneven Surface: 88 1 Step (curb) (QC): 88 4 Steps (QC): 88 12 Steps (QC): 88 Picking up an Object (QC): 6 Wheel 50 feet with 2 turns (QC: 6 Wheel 150 feet: 6 PT Plan Treatment/Plan Treatment Plan: Continue Plan of Care Treatment Plan: Bed Mobility, Education, Functional Activity Marjorie, Functional Strength, Group Therapy, Gait, Safety, Therapeutic Exercise, Transfers Treatment Duration: Jun 21, 2022 Frequency: At least 5 of 7 days/Wk (IRF) Estimated Hrs Per Day: 1.5 hours per day Patient and/or Family Agrees t: Yes Safety Risks/Education Patient Education: Gait Training, Transfer Techniques, Correct Positioning, W/C Management, Disease Process, Safety Issues Teaching Recipient: Patient Teaching Methods: Demonstration, Discussion Response to Teaching: Unable to Return Demonstration, Unable to Comprehend, Reinforcement Needed educated pt regarding overall health and the importance of gait and activity to prevent blood clots, pneumonia and skin issues Time Time In: 910 Time Out: 1040 DATE: Jun 03, 2022 Total Billed Treatment Time: 90 Total Billed Treatment 1,GT25m,FA35m,EX30m DAGO SALAS MANAGER COSMETIC Jun 03, 2022 10:35
[2022-06-03] MEDS: HYDROcodone/APAP 7.5 MG/325 MG (LORTAB, LORCET PLUS) TABLET PO PRN ×3 (11:19→23:35)
--- NOTE | 2022-06-03 11:48 | Podiatry Progress Note ---
Standard Progress Note Progress Notes/Assess & Plan Date Seen by a Provider: Jun 03, 2022 Time Seen by a Provider: 11:47 Progress/Assessment & Plan Consultation dictated. Foot care given. Final Diagnosis Idiopathic neuropathy, onychomycosis, edema WILLIAM CHACKO DPZhao Jun 03, 2022 11:48
[2022-06-03] MEDS: CALCIUM CARB + VIT D 600 MG (CALCARB + D) TAB PO SCH (13:08)
[2022-06-03] MEDS: polyethylene glycoL POWDER 17 GM (MIRALAX) PACK PO SCH ×2 (13:08→21:16)
[2022-06-03] MEDS: DOCUSATE SODIUM 100 MG (COLACE) CAP PO SCH ×2 (13:08→21:16)
[2022-06-03] MEDS: SENNA W/DOCUSATE (SENOKOT S) TABLET PO SCH ×2 (13:08→21:16)
[2022-06-03] MEDS: ALPRAZolam 0.5 MG (XANAX) TAB PO SCH ×2 (13:08→21:23)
[2022-06-03] MEDS: ARTIFICAL TEARS 0.4 ML UNIT DOSE (REFRESH PLUS) OU SCH ×2 (13:08→21:15)
[2022-06-03 20:25] VITALS: BP 133/65
[2022-06-03] MEDS ORDERED: ASENAPINE 10 MG SL SCH (21:00)
[2022-06-03] MEDS: OXcarbazepine (TRILEPTAL) 300 MG TAB PO SCH (21:22)
[2022-06-03] MEDS: OXYBUTYNIN (DITROPAN) 5 MG TAB PO SCH (21:24)
[2022-06-03] MEDS: LATANOPROSTENE BUNOD 0.024% OU SCH (21:24)
[2022-06-03] MEDS: MULTIVIT W/MINERALS TAB (THERAGRAN M) PO SCH (21:25)
[2022-06-04] MEDS: ENOXAPARIN 40 MG/0.4 ML (LOVENOX) SYR SC SCH ×2 (05:51→18:34)
[2022-06-04] MEDS: LOPERAMIDE 2 MG (IMODIUM) TABLET PO PRN (06:21)
[2022-06-04] MEDS: UMECLIDINIUM BROMIDE (INCRUSE ELLIPTA) 7'S IH SCH (07:09)
[2022-06-04] MEDS: RT--FLUTICASONE/SALMETEROL 232-14 (AIRDUO RespiCLICK) IH SCH ×2 (07:09→20:22)
[2022-06-04 07:35] VITALS: BP 131/86
[2022-06-04] MEDS: PANTOPRAZOLE 40 MG (PROTONIX) TAB PO SCH ×2 (08:22→20:28)
[2022-06-04] MEDS: ALPRAZolam 0.5 MG (XANAX) TAB PO SCH ×2 (08:22→20:28)
[2022-06-04] MEDS: ASPIRIN E.C. 81 MG (ECOTRIN) TAB PO SCH (08:22)
[2022-06-04] MEDS: CALCIUM CARB + VIT D 600 MG (CALCARB + D) TAB PO SCH (08:22)
[2022-06-04] MEDS: amLODIPine 10 MG (NORVASC) TAB PO SCH (08:22)
[2022-06-04] MEDS: NITROFURANTOIN 100 MG (MACROBID) CAPSULE PO SCH ×2 (08:22→20:28)
[2022-06-04] MEDS: DOCUSATE SODIUM 100 MG (COLACE) CAP PO SCH ×2 (08:23→19:59)
[2022-06-04] MEDS: MICONAZOLE 2% POWDER (DESENEX AF) 90 GM TOP SCH ×2 (08:23→20:31)
[2022-06-04] MEDS: ARTIFICAL TEARS 0.4 ML UNIT DOSE (REFRESH PLUS) OU SCH ×2 (08:23→19:58)
[2022-06-04] MEDS: polyethylene glycoL POWDER 17 GM (MIRALAX) PACK PO SCH ×2 (08:23→19:59)
[2022-06-04] MEDS: SENNA W/DOCUSATE (SENOKOT S) TABLET PO SCH ×2 (08:23→20:00)
[2022-06-04] MEDS: DORZOLAMIDE/TIMOLOL (COSOPT) 2-0.68% 10 ML BTL OU SCH ×2 (08:24→20:29)
[2022-06-04] MEDS: TERBINAFINE 1% CREAM 1 OZ (LamISIL) TUBE TP SCH (08:25)
[2022-06-04] MEDS: ONDANSETRON 4 MG (ZOFRAN) ORAL DISSOLVE TAB PO PRN (08:26)
--- NOTE | 2022-06-04 08:48 | Occupational Ther Daily Note ---
OT Current Status-Daily Note Subjective Pt alert, sitting in w/c. Pt agrees to therapy. Pt c/o pain, rating 5-6/10, nrsg aware. Mental Status/Objective Patient Orientation: Person, Place, Time, Situation Attachments: Oxygen (2L), Other-See Comments (abdominal binder) ADL-Treatment Pt continues to improve with stamina and ADL skills. Pt agrees to shower. Pt retrieves and transports clothing at w/c level. Independent with toilet transfer and toileting. Pt completed hand hygiene and oral care sitting at sink, independently. SBA to transfer into shower. Sitting on shower bench 100% of the time, pt completed shower independently. Independent donning/doffing shirt, assist to don/doff abdominal binder. Using AE, pt able to don/doff lower body clothing and footwear by self. Pt able to get in/out of bed independently with HOB flat. Therapy Code Descriptions/Definitions Functional [place] Measure: 0=Not Assessed/NA 4=Minimal Assistance 1=Total Assistance 5=Supervision or Setup 2=Maximal Assistance 6=Modified [place] 3=Moderate Assistance 7=Complete IndependenceSCALE: Activities may be completed with or without assistive devices. 1-Eyiakvxkpz-conrfxd completes the activity by him/herself with no assistance from a helper. 5-Set-up or Clean-up Assistance-helper sets up or cleans up; patient completes activity. [place] assists only prior to or following the activity. 4-Supervision or Touching Assistance-helper provides verbal cues and/or touching/steadying and/or contact guard assistance as patient completes activity. Assistance may be provided throughout the activity or intermittently. 3-Partial/Moderate Assistance-helper does LESS THAN HALF the effort. [place] lifts, holds or supports trunk or limbs, but provides less than half the effort. 2-Substantial/Maximal Assistance-helper does MORE THAN HALF the effort. [place] lifts or holds trunk or limbs and provides more than half the effort. 0-Ufvvochmn-ptqhgm does ALL the effort. Patient does none of the effort to complete the activity. Or, the assistance of 2 or more helpers is required for the patient to complete the activity. If activity was not attempted, code reason: 7-Patient Refused. 9-Not Applicable-not attempted and the patient did not perform the activity before the current illness, exacerbation or injury. 10-Not Attempted due to Environmental Limitations-(lack of equipment, weather restraints, etc.). 88-Not Attempted due to Medical Conditions or Safety Concerns. Eating (QC): 6 Oral Hygiene (QC): 6 Shower/Bathe Self (QC): 6 Upper Body Dressing (QC): 3 (Shirt independent. Assist to don/doff abdominal binder.) Lower Body Dressing (QC): 6 On/Off Footwear: 6 Toileting Hygiene (QC): 6 Toilet Transfer (QC): 6 Pt maintained O2 sat levels at 92% and above throughout session. Pt declined to have O2 on during shower, frequently monitored O2 levels and pt maintained 95% and above. O2 placed (2L)when pt in supine, O2 levels went to 91% and recovered quickly with PLB to 94%. Reported to nrsg. OT Short Term Goals Short Term Goals Time Frame: Jun 04, 2022 Upper body dressin Lower body dressin OT Group Home Goals Fermenting Cellars Supervisor Goals Time Frame: Jun 18, 2022 Acute change in mental status: 0 Inattention: 0 Disorganized thinkin Altered level of consciousness: 0 Eating (QC): 6 Oral Hygiene (QC): 6 Toileting Hygiene (QC): 6 Shower/Bathe Self (QC): 6 Upper Body Dressing (QC): 6 Lower Body Dressing (QC): 6 On/Off Footwear (QC): 6 Additional Goals: 1-Demonstrate ADL Tasks, 2-Verbalize Understanding, 3- ImproveStrength/Marjorie 1=Demonstrate adherence to instructed precautions during ADL tasks. 2=Patient will verbalize/demonstrate understanding of assistive device s/modifications for ADL. 3=Patient will improve strength/tolerance for activity to enable patient to perform ADL's. OT Education/Plan Problem List/Assessment Assessment: Decreased Activ Tolerance, Impaired Self-Care Skills Pt requires assistance with showering, some ADLs, and IADLs at [facility]. She has assistance 2 times a week with showering and dressing, but on the other days she is able to dress herself and manage around her house at w/c level. Pt will be seen by OT in order to increase BUE strength and activity tolerance, and increase safety and independence with ADLs in order maximize LOF for safe return home. Discharge Recommendations Plan/Recommendations: Continue POC Treatment Plan/Plan of Care Patient would benefit from OT for education, treatment and training to promote independence in ADL's, mobility, safety and/or upper extremity function for ADL's. Plan of Care: ADL Retraining, Functional Mobility, Group Exercise/Act as Ind, UE Funct Exercise/Act Treatment Duration: Jun 18, 2022 Frequency: At least 5 of 7 days/Wk (IRF) Estimated Hrs Per Day: 1.5 hours per day Agreement: Yes Rehab Potential: Fair Time Start Time: 07:15 Stop Time: 08:45 DATE: Jun 04, 2022 Total Time Billed (hr/min): 90 Billed Treatment Time 1 visit-ADL 6 (90 min) GIANLUCA GOODEN Jun 04, 2022 08:48
[2022-06-04] MEDS: HYDROcodone/APAP 7.5 MG/325 MG (LORTAB, LORCET PLUS) TABLET PO PRN ×2 (09:12→20:27)
[2022-06-04] MEDS ORDERED: SALIVA SUBSTITUTE 60 ML SPRAY(MOUTHKOTE) MM PRN (10:15)
--- NOTE | 2022-06-04 10:28 | Physical Therapy Daily Note ---
PT Daily Note-Current Subjective Patient lying supine in bed upon PT arrival, agreeable to treatment. Rates pain in right knee at 4/10 and in abdomen at 7/10. Nurse dispensed pain medicine. Pain Section J - Health Conditions 1. Rarely or not at all 2. Occasionally 3. Frequently 4. Almost constantly 8. Unable to answer Pain Effect on Sleep: 2 Pain Interference with Therapy: 3 Pain Interference w/Day-to-Day: 2 Mental Status Patient Orientation: Person, Place, Time, Situation Transfers SCALE: Activities may be completed with or without assistive devices. 6-Mowdvpfwop-apbowtv completes the activity by him/herself with no assistance from a helper. 5-Set-up or Clean-up Assistance-helper sets up or cleans up; patient completes activity. [place] assists only prior to or following the activity. 4-Supervision or Touching Assistance-helper provides verbal cues and/or touching/steadying and/or contact guard assistance as patient completes activity. Assistance may be provided throughout the activity or intermittently. 3-Partial/Moderate Assistance-helper does LESS THAN HALF the effort. [place] lifts, holds or supports trunk or limbs, but provides less than half the effort. 2-Substantial/Maximal Assistance-helper does MORE THAN HALF the effort. [place] lifts or holds trunk or limbs and provides more than half the effort. 2-Ydmjbjthz-cayqay does ALL the effort. Patient does none of the effort to complete the activity. Or, the assistance of 2 or more helpers is required for the patient to complete the activity. If activity was not attempted, code reason: 7-Patient Refused. 9-Not Applicable-not attempted and the patient did not perform the activity before the current illness, exacerbation or injury. 10-Not Attempted due to Environmental Limitations-(lack of equipment, weather restraints, etc.). 88-Not Attempted due to Medical Conditions or Safety Concerns. Roll Left & Right (QC): 6 Sit to Lying (QC): 6 Lying to Sitting/Side of Bed(Q: 6 Sit to Stand (QC): 6 Chair/Vcv-fb-Jbgrc Xfer(QC): 6 Toilet Transfer (QC): 6 Weight Bearing Full Weight Bearing Gait Training Does the Patient Walk?: Yes Distance: 18', 15' Walk 10 feet (QC): 4 Gait Persons Needed: 2 (For W/c and O2) Gait Assistive Device: FWW Exercises Supine Ex: Ankle pumps, Quad Set, Glut sets Supine Reps: 20 Seated Therapy Exercises: Long arc quads, Hamstring Curls, Hip abd/add Seated Reps: 20 Treatments Standing and sitting dynamic and static balance to improve overall function and mobility. Assessment Current Status: Fair Progress Patient tolerated treatment fair. She performs LE bed exercises for warm up as listed above. Patient performs all observed bed mobility and transfers with independence except sit to pump house engineer which she requires SBA due to increased right knee pain per patient report. Patient ambulates 18 feet with FWW, with SBA and verbal cues for safety, progression, posture and O2. Patient requires SBA for balance during loweriing of pants for use of BR. Patient then ambulates 15 feet with FWW, but requests to sit in w/c due to fatigue. Patient propels w/c a total of 250 feet with 4-5 rest breaks, with SBA for O2 tank and verbal cues for doors. Patient performs transfer back to bed post treatment and independent with bed mobility. Patient in bed post treatment with all needs met, nursing notified, call light in hand. PT Short Term Goals Short Term Goals Time Frame: Jun 07, 2022 Roll Left & Right: 4 (SBA) Sit to lyin (SBA) Lying to sitting on side of be: 4 (SBA) Sit to stand: 4 (SBA) Chair/ytj-fo-bflyx transfer: 4 (SBA) Toilet transfer: 4 (SBA) Car transfer: 4 (SBA) Walk 10 feet: 4 (SBA) Walk 50 feet with two turns: 88 Walk 150 feet: 88 Walking 10ft on uneven surface: 88 1 step (curb): 88 4 steps: 88 12 steps: 88 Picking up objects: 4 (SBA) Does pt use a wc or scooter: Yes Type: Manual PT Shingle Catcher Goals Shingle Catcher Goals PT Shingle Catcher Goals Time Frame: Jun 21, 2022 Roll Left & Right (QC): 6 Sit to Lying (QC): 6 Lying-Sitting on Side/Bed(QC): 6 Sit to Stand (QC): 6 Chair/Phy-kh-Tbcyl Xfer(QC): 6 Toilet Transfer (QC): 6 Car Transfer (QC): 6 Does the Patient Walk: Yes Walk 10 feet (QC): 6 Walk 50ft with 2 Turns (QC): 88 Walk 150 ft (QC): 88 Walking 10ft on Uneven Surface: 88 1 Step (curb) (QC): 88 4 Steps (QC): 88 12 Steps (QC): 88 Picking up an Object (QC): 6 Wheel 50 feet with 2 turns (QC: 6 Wheel 150 feet: 6 PT Plan Treatment/Plan Treatment Plan: Continue Plan of Care Treatment Plan: Bed Mobility, Education, Functional Activity Marjorie, Functional Strength, Group Therapy, Gait, Safety, Therapeutic Exercise, Transfers Treatment Duration: Jun 21, 2022 Frequency: At least 5 of 7 days/Wk (IRF) Estimated Hrs Per Day: 1.5 hours per day Patient and/or Family Agrees t: Yes Safety Risks/Education Patient Education: Gait Training, Transfer Techniques, W/C Management Teaching Recipient: Patient Teaching Methods: Demonstration, Discussion Response to Teaching: Verbalize Understanding, Return Demonstration Time Time In: 900 Time Out: 1030 DATE: Jun 04, 2022 Total Billed Treatment Time: 90 Total Billed Treatment Visit, Ex (25), FA (25), Gait (20), W/C (20) TRAVIS CABELLO PT Jun 04, 2022 10:28
--- NOTE | 2022-06-04 10:29 | PM&R Progress Note ---
Subjective HPI/CC On Admission Date Seen by Provider: Jun 04, 2022 Time Seen by Provider: 10:00 Subjective/Events-last exam 06/04/2022: Pt is doing a lot better Feels like she is improved Checked meds and labs Pain is improved 06/03/2022: Patient doing well No major issues Last depression today Checked meds labs 06/02/2022: BP is still elevated Clonidine was given Zofran and Imodium given Pt is wheelchair bound at home Will monitor closely 06/01/2022: Pt is doing well BP is very elevated Checked meds and labs Myopathy is an issue Appears she is mostly sedentary at home Otherwise doing well Review of Systems General: Fatigue, Malaise Objective Exam Vital Signs Vital Signs Date Time Temp Pulse Resp B/P (MAP) Pulse Ox O2 Delivery O2 Flow Rate FiO2 06/04/22 20:22 95 Nasal Cannula 2.00 06/04/22 07:35 36.6 78 20 131/86 (101) Capillary Refill : General Appearance: No Apparent Distress, WD/WN, Chronically ill, Obese HEENT: PERRL/EOMI, Normal ENT Inspection, Pharynx Normal Neck: Full Range of Motion, Normal Inspection, Non Tender, Supple, Carotid Bruit Respiratory: Chest Non Tender, Lungs Clear, Normal Breath Sounds, No Accessory Muscle Use, No Respiratory Distress, Decreased Breath Sounds Cardiovascular: Regular Rate, Rhythm, No Edema, No Gallop, No JVD, No Murmur, Normal Peripheral Pulses Gastrointestinal: Normal Bowel Sounds, No Organomegaly, No Pulsatile Mass, Soft, Tenderness Back: Normal Inspection, No CVA Tenderness, No Vertebral Tenderness Extremity: Normal Capillary Refill, Normal Inspection, Normal Range of Motion, Non Tender, No Calf Tenderness, No Pedal Edema Neurologic/Psychiatric: Alert, Oriented x3, No Motor/Sensory Deficits, 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 FIM Transfers Therapy Code Descriptions/Definitions Functional [place] Measure: 0=Not Assessed/NA 4=Minimal Assistance 1=Total Assistance 5=Supervision or Setup 2=Maximal Assistance 6=Modified [place] 3=Moderate Assistance 7=Complete IndependenceSCALE: Activities may be completed with or without assistive devices. 2-Hsnahwznth-xqtuhbk completes the activity by him/herself with no assistance from a helper. 5-Set-up or Clean-up Assistance-helper sets up or cleans up; patient completes activity. [place] assists only prior to or following the activity. 4-Supervision or Touching Assistance-helper provides verbal cues and/or touching/steadying and/or contact guard assistance as patient completes activity. Assistance may be provided throughout the activity or intermittently. 3-Partial/Moderate Assistance-helper does LESS THAN HALF the effort. [place] lifts, holds or supports trunk or limbs, but provides less than half the effort. 2-Substantial/Maximal Assistance-helper does MORE THAN HALF the effort. [place] lifts or holds trunk or limbs and provides more than half the effort. 9-Tnzdarunj-bmdmcb does ALL the effort. Patient does none of the effort to complete the activity. Or, the assistance of 2 or more helpers is required for the patient to complete the activity. If activity was not attempted, code reason: 7-Patient Refused. 9-Not Applicable-not attempted and the patient did not perform the activity before the current illness, exacerbation or injury. 10-Not Attempted due to Environmental Limitations-(lack of equipment, weather restraints, etc.). 88-Not Attempted due to Medical Conditions or Safety Concerns. Roll Left to Right (QC): 6 Sit to Lying (QC): 6 Sit to Stand (QC): 6 Chair/Psi-vt-Uyndo Xfer(QC): 6 Car Transfer (QC): 4 Gait Training Does the Patient Walk?: Yes Walk 10 feet (QC): 4 Walk 50 ft with 2 Turns(QC): 88 Walk 150 ft (QC): 88 Walking 10ft/uneven surface-QC: 88 Gait Persons Needed: 1 Gait Assistive Device: FWW Wheelchair Training Does the Pt Use a Wheelchair?: Yes Distance: 150', 50', 50', 100' Wheel 50 ft with 2 turns (QC): 4 Wheel 150 ft (QC): 4 Type of Wheelchair: Manual Stair Training 1 Step (curb) (QC): 88 4 Steps (QC): 88 12 Steps (QC): 88 Balance Picking up an Object (QC): 4 (using roll bucker) ADL-Treatment Eating (QC): 6 Oral Hygiene (QC): 6 Shower/Bathe Self (QC): 6 Upper Body Dressing (QC): 3 (Shirt independent. Assist to don/doff abdominal binder.) Lower Body Dressing (QC): 6 On/Off Footwear (QC): 6 Toileting Hygiene (QC): 6 Toilet Transfer (QC): 6 Assessment/Plan Assessment and Plan Assess & Plan/Chief Complaint Assessment: Disuse myopathy Recent cholecystectomy Continued abdominal pain Mental illness Slow recovery Hypertension Hypothyroidism Hyperlipidemia Morbid obesity Pulmonary hypertension Plan: Aggressive rehab Home meds Supportive care 06/01/2022: Supportive care Blood pressure meds Continue recovery 06/02/2022: May be willing to see Behavioral Health due to increased depression but she will let me know Monitor BP 06/03/2022: Supportive care 06/04/2022: Monitor closely (1) Myopathy (2) Super obesity Status: Chronic (3) Primary hypertension (4) Chronic heart failure with preserved ejection fraction (5) Gallstones Status: Acute (6) S/P laparoscopic cholecystectomy Status: Acute (7) Pulmonary hypertension JENNIE CAM DO Jun 04, 2022 10:29
[2022-06-04] MEDS ORDERED: SCOPOLAMINE PATCH REMOVAL TP SCH (10:59)
--- NOTE | 2022-06-04 11:43 | Progress Note ---
Subjective Date Seen by a Provider: Jun 02, 2022 Time Seen by a Provider: 15:00 Subjective/Events-last exam This note reflects visit on 06/03/22. patient doing better. states doing better with liquids with less nausea. pain controlled and ambulating better with assistance. Objective Exam Vital Signs Date Time Temp Pulse Resp B/P (MAP) Pulse Ox O2 Delivery O2 Flow Rate FiO2 06/04/22 09:14 Room Air 06/04/22 07:35 36.6 78 20 131/86 (101) 99 Nasal Cannula 2.00 06/04/22 07:10 95 Nasal Cannula 2.00 06/03/22 20:30 95 Nasal Cannula 2.00 06/03/22 20:25 37.0 73 20 133/65 (87) Nasal Cannula 2.00 06/03/22 20:15 95 Nasal Cannula 2.00 I & O 06/04/22 07:00 Intake Total 1470 ml Balance 1470 ml Capillary Refill : General Appearance: No Apparent Distress HEENT: PERRL/EOMI Neck: Full Range of Motion Respiratory: Chest Non Tender, Decreased Breath Sounds Cardiovascular: Regular Rate, Rhythm Gastrointestinal: normal bowel sounds, tenderness Extremity: Normal Capillary Refill Neurologic/Psychiatric: Alert, Oriented x3 Skin: Normal Color Lymphatic: No Adenopathy Assessment/Plan Assessment/Plan Assess & Plan/Chief Complaint s/p laparoscopic cholecystectomy for calculous cholecystitis, sbo with incisional hernia s/p open repair with mesh, disuse myopathy. nausea/vomiting likely to persist for some amount of time due to the magnitude of gallbladder dilatation. will start phenergan PRN. cont ARU. cont previous home meds including macrobid for chronic UTI and protonix for GERD/PUD. advance diet as tolerated. FER MICHELLE MD Jun 04, 2022 11:43
--- NOTE | 2022-06-04 11:45 | Progress Note ---
Subjective Date Seen by a Provider: Jun 04, 2022 Time Seen by a Provider: 11:00 Subjective/Events-last exam doing ok. tolerating PT/OT well. able to eat better and has mild intermittent nausea however no vomiting. having diarrhea. Objective Exam Vital Signs Date Time Temp Pulse Resp B/P (MAP) Pulse Ox O2 Delivery O2 Flow Rate FiO2 06/04/22 09:14 Room Air 06/04/22 07:35 36.6 78 20 131/86 (101) 99 Nasal Cannula 2.00 06/04/22 07:10 95 Nasal Cannula 2.00 06/03/22 20:30 95 Nasal Cannula 2.00 06/03/22 20:25 37.0 73 20 133/65 (87) Nasal Cannula 2.00 06/03/22 20:15 95 Nasal Cannula 2.00 I & O 06/04/22 07:00 Intake Total 1470 ml Balance 1470 ml Capillary Refill : General Appearance: No Apparent Distress HEENT: PERRL/EOMI Neck: Full Range of Motion Respiratory: Chest Non Tender, Decreased Breath Sounds Cardiovascular: Regular Rate, Rhythm Gastrointestinal: normal bowel sounds, tenderness Extremity: Normal Capillary Refill Neurologic/Psychiatric: Alert, Oriented x3 Skin: Normal Color Lymphatic: No Adenopathy Assessment/Plan Assessment/Plan Assess & Plan/Chief Complaint s/p laparoscopic cholecystectomy for calculous cholecystitis, sbo with incisional hernia s/p open repair with mesh, disuse myopathy. nausea/vomiting likely to persist for some amount of time due to the magnitude of gallbladder dilatation. will start phenergan PRN. cont ARU. cont previous home meds including macrobid for chronic UTI and protonix for GERD/PUD. advance diet as tolerated. trial questran if diarrhea doesn't resolve. FER MICHELLE MD Jun 04, 2022 11:45
[2022-06-04] MEDS: SCOPOLAMINE 1.5 MG (TRANSDERM-SCOP) PATCH TD SCH (13:34)
[2022-06-04] MEDS: DICLOFENAC 1% GEL 100 GM (VOLTAREN) TUBE TOP SCH ×3 (13:36→20:31)
[2022-06-04 20:00] VITALS: BP 131/67
[2022-06-04] MEDS: LATANOPROSTENE BUNOD 0.024% OU SCH (20:26)
[2022-06-04] MEDS: OXcarbazepine (TRILEPTAL) 300 MG TAB PO SCH (20:28)
[2022-06-04] MEDS: MULTIVIT W/MINERALS TAB (THERAGRAN M) PO SCH (20:29)
[2022-06-04] MEDS: ASENAPINE 10 MG SL SCH (20:29)
[2022-06-04] MEDS: OXYBUTYNIN (DITROPAN) 5 MG TAB PO SCH (20:29)
[2022-06-05] MEDS: ENOXAPARIN 40 MG/0.4 ML (LOVENOX) SYR SC SCH ×2 (04:21→16:05)
[2022-06-05 07:28] VITALS: BP 143/90
[2022-06-05] MEDS: UMECLIDINIUM BROMIDE (INCRUSE ELLIPTA) 7'S IH SCH (08:11)
[2022-06-05] MEDS: RT--FLUTICASONE/SALMETEROL 232-14 (AIRDUO RespiCLICK) IH SCH ×2 (08:11→19:30)
[2022-06-05] MEDS: ARTIFICAL TEARS 0.4 ML UNIT DOSE (REFRESH PLUS) OU SCH ×2 (08:52→19:19)
[2022-06-05] MEDS: DORZOLAMIDE/TIMOLOL (COSOPT) 2-0.68% 10 ML BTL OU SCH ×2 (08:52→20:36)
[2022-06-05] MEDS: CALCIUM CARB + VIT D 600 MG (CALCARB + D) TAB PO SCH (08:53)
[2022-06-05] MEDS: ASPIRIN E.C. 81 MG (ECOTRIN) TAB PO SCH (08:54)
[2022-06-05] MEDS: DOCUSATE SODIUM 100 MG (COLACE) CAP PO SCH ×2 (08:54→19:19)
[2022-06-05] MEDS: ALPRAZolam 0.5 MG (XANAX) TAB PO SCH ×2 (08:55→20:35)
[2022-06-05] MEDS: amLODIPine 10 MG (NORVASC) TAB PO SCH (08:55)
[2022-06-05] MEDS: PANTOPRAZOLE 40 MG (PROTONIX) TAB PO SCH ×2 (08:55→20:34)
[2022-06-05] MEDS: HYDROcodone/APAP 7.5 MG/325 MG (LORTAB, LORCET PLUS) TABLET PO PRN ×3 (08:55→20:34)
[2022-06-05] MEDS: NITROFURANTOIN 100 MG (MACROBID) CAPSULE PO SCH ×2 (08:55→20:34)
[2022-06-05] MEDS: SENNA W/DOCUSATE (SENOKOT S) TABLET PO SCH ×2 (08:56→19:19)
[2022-06-05] MEDS: polyethylene glycoL POWDER 17 GM (MIRALAX) PACK PO SCH ×2 (08:57→19:19)
[2022-06-05] MEDS: MICONAZOLE 2% POWDER (DESENEX AF) 90 GM TOP SCH ×2 (08:57→20:35)
[2022-06-05] MEDS: DICLOFENAC 1% GEL 100 GM (VOLTAREN) TUBE TOP SCH ×4 (08:57→20:35)
[2022-06-05] MEDS: TERBINAFINE 1% CREAM 1 OZ (LamISIL) TUBE TP SCH (08:58)
--- NOTE | 2022-06-05 09:39 | PM&R Progress Note ---
Subjective HPI/CC On Admission Date Seen by Provider: Jun 05, 2022 Time Seen by Provider: 11:00 Subjective/Events-last exam 06/05/2022: Improved status No pain reported No falls Better mood 06/04/2022: Pt is doing a lot better Feels like she is improved Checked meds and labs Pain is improved 06/03/2022: Patient doing well No major issues Last depression today Checked meds labs 06/02/2022: BP is still elevated Clonidine was given Zofran and Imodium given Pt is wheelchair bound at home Will monitor closely 06/01/2022: Pt is doing well BP is very elevated Checked meds and labs Myopathy is an issue Appears she is mostly sedentary at home Otherwise doing well Review of Systems General: Fatigue, Malaise Objective Exam Vital Signs Vital Signs Date Time Temp Pulse Resp B/P (MAP) Pulse Ox O2 Delivery O2 Flow Rate FiO2 06/05/22 09:00 94 Room Air 06/05/22 08:11 2.00 06/05/22 07:28 36.6 74 20 143/90 (107) Capillary Refill : General Appearance: No Apparent Distress, WD/WN, Chronically ill, Obese HEENT: PERRL/EOMI, Normal ENT Inspection, Pharynx Normal Neck: Full Range of Motion, Normal Inspection, Non Tender, Supple, Carotid Brui t Respiratory: Chest Non Tender, Lungs Clear, Normal Breath Sounds, No Accessory Muscle Use, No Respiratory Distress, Decreased Breath Sounds Cardiovascular: Regular Rate, Rhythm, No Edema, No Gallop, No JVD, No Murmur, Normal Peripheral Pulses Gastrointestinal: Normal Bowel Sounds, No Organomegaly, No Pulsatile Mass, Soft, Tenderness Back: Normal Inspection, No CVA Tenderness, No Vertebral Tenderness Extremity: Normal Capillary Refill, Normal Inspection, Normal Range of Motion, Non Tender, No Calf Tenderness, No Pedal Edema Neurologic/Psychiatric: Alert, Oriented x3, No Motor/Sensory Deficits, 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 FIM Transfers Therapy Code Descriptions/Definitions Functional [place] Measure: 0=Not Assessed/NA 4=Minimal Assistance 1=Total Assistance 5=Supervision or Setup 2=Maximal Assistance 6=Modified [place] 3=Moderate Assistance 7=Complete IndependenceSCALE: Activities may be completed with or without assistive devices. 0-Oayjjhnnwh-wrvrtld completes the activity by him/herself with no assistance from a helper. 5-Set-up or Clean-up Assistance-helper sets up or cleans up; patient completes activity. [place] assists only prior to or following the activity. 4-Supervision or Touching Assistance-helper provides verbal cues and/or touching/steadying and/or contact guard assistance as patient completes activity. Assistance may be provided throughout the activity or intermittently. 3-Partial/Moderate Assistance-helper does LESS THAN HALF the effort. [place] lifts, holds or supports trunk or limbs, but provides less than half the effort. 2-Substantial/Maximal Assistance-helper does MORE THAN HALF the effort. [place] lifts or holds trunk or limbs and provides more than half the effort. 7-Pskzmsyhl-xwbjjx does ALL the effort. Patient does none of the effort to complete the activity. Or, the assistance of 2 or more helpers is required for the patient to complete the activity. If activity was not attempted, code reason: 7-Patient Refused. 9-Not Applicable-not attempted and the patient did not perform the activity before the current illness, exacerbation or injury. 10-Not Attempted due to Environmental Limitations-(lack of equipment, weather restraints, etc.). 88-Not Attempted due to Medical Conditions or Safety Concerns. Roll Left to Right (QC): 6 Sit to Lying (QC): 6 Sit to Stand (QC): 6 Chair/Uax-ds-Qbwop Xfer(QC): 6 Car Transfer (QC): 4 Gait Training Does the Patient Walk?: Yes Distance: 18', 15' Walk 10 feet (QC): 4 Walk 50 ft with 2 Turns(QC): 88 Walk 150 ft (QC): 88 Walking 10ft/uneven surface-QC: 88 Gait Persons Needed: 2 (For W/c and O2) Gait Assistive Device: FWW Wheelchair Training Does the Pt Use a Wheelchair?: Yes Distance: 150', 50', 50', 100' Wheel 50 ft with 2 turns (QC): 4 Wheel 150 ft (QC): 4 Type of Wheelchair: Manual Stair Training 1 Step (curb) (QC): 88 4 Steps (QC): 88 12 Steps (QC): 88 Balance Picking up an Object (QC): 4 (using developer designer) ADL-Treatment Eating (QC): 6 Oral Hygiene (QC): 6 Shower/Bathe Self (QC): 6 Upper Body Dressing (QC): 3 (Shirt independent. Assist to don/doff abdominal binder.) Lower Body Dressing (QC): 6 On/Off Footwear (QC): 6 Toileting Hygiene (QC): 6 Toilet Transfer (QC): 6 Assessment/Plan Assessment and Plan Assess & Plan/Chief Complaint Assessment: Disuse myopathy Recent cholecystectomy Continued abdominal pain Mental illness Slow recovery Hypertension Hypothyroidism Hyperlipidemia Morbid obesity Pulmonary hypertension Plan: Aggressive rehab Home meds Supportive care 06/01/2022: Supportive care Blood pressure meds Continue recovery 06/02/2022: May be willing to see Behavioral Health due to increased depression but she will let me know Monitor BP 06/03/2022: Supportive care 06/04/2022: Monitor closely 06/05/2022: Monitor closely (1) Myopathy (2) Super obesity Status: Chronic (3) Primary hypertension (4) Chronic heart failure with preserved ejection fraction (5) Gallstones Status: Acute (6) S/P laparoscopic cholecystectomy Status: Acute (7) Pulmonary hypertension JENNIE CAM DO Jun 05, 2022 09:39
--- NOTE | 2022-06-05 11:24 | Physical Therapy Daily Note ---
PT Daily Note-Current Subjective Pt requested to only perform bed exs this date d/t pain and says she has already been up multiple times this morning. Pain Section J - Health Conditions 1. Rarely or not at all 2. Occasionally 3. Frequently 4. Almost constantly 8. Unable to answer Pain Effect on Sleep: 2 Pain Interference with Therapy: 3 Pain Interference w/Day-to-Day: 2 Mental Status Patient Orientation: Person, Place, Time, Situation Transfers SCALE: Activities may be completed with or without assistive devices. 6-Vxmgegqkps-peldunq completes the activity by him/herself with no assistance from a helper. 5-Set-up or Clean-up Assistance-helper sets up or cleans up; patient completes activity. [place] assists only prior to or following the activity. 4-Supervision or Touching Assistance-helper provides verbal cues and/or touching/steadying and/or contact guard assistance as patient completes activity. Assistance may be provided throughout the activity or intermittently. 3-Partial/Moderate Assistance-helper does LESS THAN HALF the effort. [place] lifts, holds or supports trunk or limbs, but provides less than half the effort. 2-Substantial/Maximal Assistance-helper does MORE THAN HALF the effort. [place] lifts or holds trunk or limbs and provides more than half the effort. 5-Uvvbdculr-rkdlac does ALL the effort. Patient does none of the effort to complete the activity. Or, the assistance of 2 or more helpers is required for the patient to complete the activity. If activity was not attempted, code reason: 7-Patient Refused. 9-Not Applicable-not attempted and the patient did not perform the activity before the current illness, exacerbation or injury. 10-Not Attempted due to Environmental Limitations-(lack of equipment, weather restraints, etc.). 88-Not Attempted due to Medical Conditions or Safety Concerns. Weight Bearing Full Weight Bearing Exercises Supine Ex: Ankle pumps, Quad Set, Glut sets, Heel Slides, Short Arc Quads Supine Reps: 15 Treatments All needs met and call light nearby as PT departs. Assessment Current Status: Good Progress Pt required verbal and tactile cues to perform exs correctly and AAROM on RLE while performing HS. PT Short Term Goals Short Term Goals Time Frame: Jun 07, 2022 Roll Left & Right: 4 (SBA) Sit to lyin (SBA) Lying to sitting on side of be: 4 (SBA) Sit to stand: 4 (SBA) Chair/qzo-ig-uydow transfer: 4 (SBA) Toilet transfer: 4 (SBA) Car transfer: 4 (SBA) Walk 10 feet: 4 (SBA) Walk 50 feet with two turns: 88 Walk 150 feet: 88 Walking 10ft on uneven surface: 88 1 step (curb): 88 4 steps: 88 12 steps: 88 Picking up objects: 4 (SBA) Does pt use a wc or scooter: Yes Type: Manual PT Honey Extractor Goals Snf Goals PT Honey Extractor Goals Time Frame: Jun 21, 2022 Roll Left & Right (QC): 6 Sit to Lying (QC): 6 Lying-Sitting on Side/Bed(QC): 6 Sit to Stand (QC): 6 Chair/Rry-ti-Adnfy Xfer(QC): 6 Toilet Transfer (QC): 6 Car Transfer (QC): 6 Does the Patient Walk: Yes Walk 10 feet (QC): 6 Walk 50ft with 2 Turns (QC): 88 Walk 150 ft (QC): 88 Walking 10ft on Uneven Surface: 88 1 Step (curb) (QC): 88 4 Steps (QC): 88 12 Steps (QC): 88 Picking up an Object (QC): 6 Wheel 50 feet with 2 turns (QC: 6 Wheel 150 feet: 6 PT Plan Problem List Problem List: Activity Tolerance, Functional Strength Treatment/Plan Treatment Plan: Continue Plan of Care Treatment Plan: Bed Mobility, Education, Functional Activity Marjorie, Functional Strength, Group Therapy, Gait, Safety, Therapeutic Exercise, Transfers Treatment Duration: Jun 21, 2022 Frequency: At least 5 of 7 days/Wk (IRF) Estimated Hrs Per Day: 1.5 hours per day Patient and/or Family Agrees t: Yes Time Time In: 1015 Time Out: 1030 DATE: Jun 05, 2022 Total Billed Treatment Time: 15 Total Billed Treatment 1, EX HIMA GONZALES MR TEACHER Jun 05, 2022 11:24
[2022-06-05] MEDS: OXYBUTYNIN (DITROPAN) 5 MG TAB PO SCH (19:19)
[2022-06-05] MEDS: MULTIVIT W/MINERALS TAB (THERAGRAN M) PO SCH (19:20)
[2022-06-05 20:06] VITALS: BP 128/76
[2022-06-05] MEDS: LATANOPROSTENE BUNOD 0.024% OU SCH (20:32)
[2022-06-05] MEDS: OXcarbazepine (TRILEPTAL) 300 MG TAB PO SCH (20:34)
[2022-06-05] MEDS: ASENAPINE 10 MG SL SCH (20:35)
[2022-06-06] MEDS: LOPERAMIDE 2 MG (IMODIUM) TABLET PO PRN ×2 (01:56→21:00)
[2022-06-06] MEDS: ENOXAPARIN 40 MG/0.4 ML (LOVENOX) SYR SC SCH ×2 (05:17→17:00)
--- NOTE | 2022-06-06 07:52 | PM&R Progress Note ---
Subjective HPI/CC On Admission Date Seen by Provider: Jun 06, 2022 Time Seen by Provider: 11:30 Subjective/Events-last exam 06/06/2022: No major issues Answered all questions she had on her notebook to the best of my ability Will need O2 at home Pain controlled 06/05/2022: Improved status No pain reported No falls Better mood 06/04/2022: Pt is doing a lot better Feels like she is improved Checked meds and labs Pain is improved 06/03/2022: Patient doing well No major issues Last depression today Checked meds labs 06/02/2022: BP is still elevated Clonidine was given Zofran and Imodium given Pt is wheelchair bound at home Will monitor closely 06/01/2022: Pt is doing well BP is very elevated Checked meds and labs Myopathy is an issue Appears she is mostly sedentary at home Otherwise doing well Review of Systems General: Fatigue, Malaise Objective Exam Vital Signs Vital Signs Date Time Temp Pulse Resp B/P (MAP) Pulse Ox O2 Delivery O2 Flow Rate FiO2 06/06/22 10:07 Nasal Cannula 1.50 06/06/22 07:53 36.6 76 16 139/83 (101) 92 Capillary Refill : General Appearance: No Apparent Distress, WD/WN, Chronically ill, Obese HEENT: PERRL/EOMI, Normal ENT Inspection, Pharynx Normal Neck: Full Range of Motion, Normal Inspection, Non Tender, Supple, Carotid Bruit Respiratory: Chest Non Tender, Lungs Clear, Normal Breath Sounds, No Accessory Muscle Use, No Respiratory Distress, Decreased Breath Sounds Cardiovascular: Regular Rate, Rhythm, No Edema, No Gallop, No JVD, No Murmur, Normal Peripheral Pulses Gastrointestinal: Normal Bowel Sounds, No Organomegaly, No Pulsatile Mass, Soft, Tenderness Back: Normal Inspection, No CVA Tenderness, No Vertebral Tenderness Extremity: Normal Capillary Refill, Normal Inspection, Normal Range of Motion, Non Tender, No Calf Tenderness, No Pedal Edema Neurologic/Psychiatric: Alert, Oriented x3, No Motor/Sensory Deficits, 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 FIM Transfers Therapy Code Descriptions/Definitions Functional [place] Measure: 0=Not Assessed/NA 4=Minimal Assistance 1=Total Assistance 5=Supervision or Setup 2=Maximal Assistance 6=Modified [place] 3=Moderate Assistance 7=Complete IndependenceSCALE: Activities may be completed with or without assistive devices. 3-Ynetfeonwd-mjzjlku completes the activity by him/herself with no assistance from a helper. 5-Set-up or Clean-up Assistance-helper sets up or cleans up; patient completes activity. [place] assists only prior to or following the activity. 4-Supervision or Touching Assistance-helper provides verbal cues and/or deanna padmini/steadying and/or contact guard assistance as patient completes activity. Assistance may be provided throughout the activity or intermittently. 3-Partial/Moderate Assistance-helper does LESS THAN HALF the effort. [place] lifts, holds or supports trunk or limbs, but provides less than half the effort. 2-Substantial/Maximal Assistance-helper does MORE THAN HALF the effort. [place] lifts or holds trunk or limbs and provides more than half the effort. 8-Blcvpyvin-dqznqo does ALL the effort. Patient does none of the effort to complete the activity. Or, the assistance of 2 or more helpers is required for the patient to complete the activity. If activity was not attempted, code reason: 7-Patient Refused. 9-Not Applicable-not attempted and the patient did not perform the activity before the current illness, exacerbation or injury. 10-Not Attempted due to Environmental Limitations-(lack of equipment, weather restraints, etc.). 88-Not Attempted due to Medical Conditions or Safety Concerns. Roll Left to Right (QC): 6 Sit to Lying (QC): 6 Sit to Stand (QC): 6 Chair/Qgi-dg-Rgaka Xfer(QC): 6 Car Transfer (QC): 4 Gait Training Does the Patient Walk?: Yes Distance: 18', 15' Walk 10 feet (QC): 4 Walk 50 ft with 2 Turns(QC): 88 Walk 150 ft (QC): 88 Walking 10ft/uneven surface-QC: 88 Gait Persons Needed: 2 (For W/c and O2) Gait Assistive Device: FWW Wheelchair Training Does the Pt Use a Wheelchair?: Yes Distance: 150', 50', 50', 100' Wheel 50 ft with 2 turns (QC): 4 Wheel 150 ft (QC): 4 Type of Wheelchair: Manual Stair Training 1 Step (curb) (QC): 88 4 Steps (QC): 88 12 Steps (QC): 88 Balance Picking up an Object (QC): 4 (using reimbursement auditor) ADL-Treatment Eating (QC): 6 Oral Hygiene (QC): 6 Shower/Bathe Self (QC): 6 Upper Body Dressing (QC): 3 (Shirt independent. Assist to don/doff abdominal binder.) Lower Body Dressing (QC): 6 On/Off Footwear (QC): 6 Toileting Hygiene (QC): 6 Toilet Transfer (QC): 6 Assessment/Plan Assessment and Plan Assess & Plan/Chief Complaint Assessment: Disuse myopathy Recent cholecystectomy Continued abdominal pain Mental illness Slow recovery Hypertension Hypothyroidism Hyperlipidemia Morbid obesity Pulmonary hypertension New O2 dependence Plan: Aggressive rehab Home meds Supportive care 06/01/2022: Supportive care Blood pressure meds Continue recovery 06/02/2022: May be willing to see Behavioral Health due to increased depression but she will let me know Monitor BP 06/03/2022: Supportive care 06/04/2022: Monitor closely 06/05/2022: Monitor closely 06/06/2022: New O2 dependence (1) Myopathy (2) Super obesity Status: Chronic (3) Primary hypertension (4) Chronic heart failure with preserved ejection fraction (5) Gallstones Status: Acute (6) S/P laparoscopic cholecystectomy Status: Acute (7) Pulmonary hypertension JENNIE CAM DO Jun 06, 2022 07:52
[2022-06-06 07:53] VITALS: BP 139/83
[2022-06-06] MEDS: CALCIUM CARB + VIT D 600 MG (CALCARB + D) TAB PO SCH (07:58)
[2022-06-06] MEDS: SENNA W/DOCUSATE (SENOKOT S) TABLET PO SCH ×2 (07:58→19:43)
[2022-06-06] MEDS: polyethylene glycoL POWDER 17 GM (MIRALAX) PACK PO SCH ×2 (07:58→19:42)
[2022-06-06] MEDS: DOCUSATE SODIUM 100 MG (COLACE) CAP PO SCH ×2 (07:58→19:42)
[2022-06-06] MEDS: HYDROcodone/APAP 7.5 MG/325 MG (LORTAB, LORCET PLUS) TABLET PO PRN ×3 (07:58→20:04)
[2022-06-06] MEDS: ALPRAZolam 0.5 MG (XANAX) TAB PO SCH ×2 (07:59→20:04)
[2022-06-06] MEDS: NITROFURANTOIN 100 MG (MACROBID) CAPSULE PO SCH ×2 (07:59→20:04)
[2022-06-06] MEDS: amLODIPine 10 MG (NORVASC) TAB PO SCH (08:00)
[2022-06-06] MEDS: ASPIRIN E.C. 81 MG (ECOTRIN) TAB PO SCH (08:00)
[2022-06-06] MEDS: MICONAZOLE 2% POWDER (DESENEX AF) 90 GM TOP SCH ×2 (08:00→20:02)
[2022-06-06] MEDS: PANTOPRAZOLE 40 MG (PROTONIX) TAB PO SCH ×2 (08:00→20:05)
[2022-06-06] MEDS: DICLOFENAC 1% GEL 100 GM (VOLTAREN) TUBE TOP SCH ×4 (08:00→20:03)
[2022-06-06] MEDS: TERBINAFINE 1% CREAM 1 OZ (LamISIL) TUBE TP SCH (08:02)
[2022-06-06] MEDS: DORZOLAMIDE/TIMOLOL (COSOPT) 2-0.68% 10 ML BTL OU SCH ×2 (08:02→20:03)
[2022-06-06] MEDS: ARTIFICAL TEARS 0.4 ML UNIT DOSE (REFRESH PLUS) OU SCH ×2 (08:02→19:42)
[2022-06-06] MEDS: UMECLIDINIUM BROMIDE (INCRUSE ELLIPTA) 7'S IH SCH (08:29)
[2022-06-06] MEDS: RT--FLUTICASONE/SALMETEROL 232-14 (AIRDUO RespiCLICK) IH SCH ×2 (08:30→22:36)
[2022-06-06] MEDS: CHOLESTYRAMINE 4 GM (QUESTRAN LITE, PREVALITE) PKT PO SCH ×2 (17:00→22:19)
[2022-06-06 19:41] VITALS: BP 113/53
[2022-06-06] MEDS: OXYBUTYNIN (DITROPAN) 5 MG TAB PO SCH (19:42)
[2022-06-06] MEDS: MULTIVIT W/MINERALS TAB (THERAGRAN M) PO SCH (19:45)
[2022-06-06] MEDS: ASENAPINE 10 MG SL SCH (20:03)
[2022-06-06] MEDS: LATANOPROSTENE BUNOD 0.024% OU SCH (20:03)
[2022-06-06] MEDS: OXcarbazepine (TRILEPTAL) 300 MG TAB PO SCH (20:05)
[2022-06-07] MEDS: ENOXAPARIN 40 MG/0.4 ML (LOVENOX) SYR SC SCH ×2 (05:15→16:42)
[2022-06-07] MEDS: CHOLESTYRAMINE 4 GM (QUESTRAN LITE, PREVALITE) PKT PO SCH ×4 (05:15→21:45)
[2022-06-07 05:59] LABS: BASOPHILS % (AUTO) 0 % (0-10); EOSINOPHILS # (AUTO) 0.3 10^3/uL (0.0-0.3); EOSINOPHILS % (AUTO) 5 % (0-10); HEMATOCRIT 34 % (35-52); HEMOGLOBIN 10.8 g/dL (11.5-16.0); LYMPHOCYTES # (AUTO) 0.8 10^3/uL (1.0-4.0); LYMPHOCYTES % (AUTO) 12 % (12-44); MEAN CORPUSCULAR HEMOGLOBIN 29 pg (25-34); MEAN CORPUSCULAR HGB CONC 32 g/dL (32-36); MEAN CORPUSCULAR VOLUME 92 fL (80-99); MEAN PLATELET VOLUME 10.6 fL (9.0-12.2); MONOCYTES # (AUTO) 0.8 10^3/uL (0.0-1.0); MONOCYTES % (AUTO) 11 % (0-12); NEUTROPHILS # (AUTO) 4.7 10^3/uL (1.8-7.8); NEUTROPHILS % (AUTO) 71 % (42-75); PLATELET COUNT 289 10^3/uL (130-400); WHITE BLOOD COUNT 6.6 10^3/uL (4.3-11.0)
--- NOTE | 2022-06-07 06:08 | PM&R Progress Note ---
Subjective HPI/CC On Admission Date Seen by Provider: Jun 07, 2022 Time Seen by Provider: 09:30 Subjective/Events-last exam 06/07/2022: No major issues Home O2 evaluation will be needed Imodium and Questran helping the diarrhea from s/p choly In out cath for urine specimen due to continued UTI symptoms 06/06/2022: No major issues Answered all questions she had on her notebook to the best of my ability Will need O2 at home Pain controlled 06/05/2022: Improved status No pain reported No falls Better mood 06/04/2022: Pt is doing a lot better Feels like she is improved Checked meds and labs Pain is improved 06/03/2022: Patient doing well No major issues Last depression today Checked meds labs 06/02/2022: BP is still elevated Clonidine was given Zofran and Imodium given Pt is wheelchair bound at home Will monitor closely 06/01/2022: Pt is doing well BP is very elevated Checked meds and labs Myopathy is an issue Appears she is mostly sedentary at home Otherwise doing well Review of Systems General: Fatigue, Malaise Objective Exam Vital Signs Vital Signs Date Time Temp Pulse Resp B/P (MAP) Pulse Ox O2 Delivery O2 Flow Rate FiO2 06/07/22 21:35 94 Nasal Cannula 1.00 06/07/22 20:09 36.6 67 16 128/60 (82) Capillary Refill : General Appearance: No Apparent Distress, WD/WN, Chronically ill, Obese HEENT: PERRL/EOMI, Normal ENT Inspection, Pharynx Normal Neck: Full Range of Motion, Normal Inspection, Non Tender, Supple, Carotid Bruit Respiratory: Chest Non Tender, Lungs Clear, Normal Breath Sounds, No Accessory Muscle Use, No Respiratory Distress, Decreased Breath Sounds Cardiovascular: Regular Rate, Rhythm, No Edema, No Gallop, No JVD, No Murmur, Normal Peripheral Pulses Gastrointestinal: Normal Bowel Sounds, No Organomegaly, No Pulsatile Mass, Soft, Tenderness Back: Normal Inspection, No CVA Tenderness, No Vertebral Tenderness Extremity: Normal Capillary Refill, Normal Inspection, Normal Range of Motion, Non Tender, No Calf Tenderness, No Pedal Edema Neurologic/Psychiatric: Alert, Oriented x3, No Motor/Sensory Deficits, rn recruitment II- XII Norm as Tested, Abnormal Gait, Depressed Affect, Motor Weakness (Generalized all extremities 3/5) Skin: Normal Color, Warm/Dry Lymphatic: No Adenopathy Results/Procedures Lab Laboratory Tests 06/07/22 05:47 Patient resulted labs reviewed. FIM Transfers Therapy Code Descriptions/Definitions Functional [place] Measure: 0=Not Assessed/NA 4=Minimal Assistance 1=Total Assistance 5=Supervision or Setup 2=Maximal Assistance 6=Modified [place] 3=Moderate Assistance 7=Complete IndependenceSCALE: Activities may be completed with or without assistive devices. 8-Nfnlizibcg-wuirxyd completes the activity by him/herself with no assistance from a helper. 5-Set-up or Clean-up Assistance-helper sets up or cleans up; patient completes activity. [place] assists only prior to or following the activity. 4-Supervision or Touching Assistance-helper provides verbal cues and/or touching/steadying and/or contact guard assistance as patient completes activity. Assistance may be provided throughout the activity or intermittently. 3-Partial/Moderate Assistance-helper does LESS THAN HALF the effort. [place] lifts, holds or supports trunk or limbs, but provides less than half the effort. 2-Substantial/Maximal Assistance-helper does MORE THAN HALF the effort. [place] lifts or holds trunk or limbs and provides more than half the effort. 0-Puqhdumvd-ushaum does ALL the effort. Patient does none of the effort to complete the activity. Or, the assistance of 2 or more helpers is required for the patient to complete the activity. If activity was not attempted, code reason: 7-Patient Refused. 9-Not Applicable-not attempted and the patient did not perform the activity before the current illness, exacerbation or injury. 10-Not Attempted due to Environmental Limitations-(lack of equipment, weather restraints, etc.). 88-Not Attempted due to Medical Conditions or Safety Concerns. Roll Left to Right (QC): 6 Sit to Lying (QC): 6 Sit to Stand (QC): 6 Chair/Nut-ov-Qvdta Xfer(QC): 6 Car Transfer (QC): 4 Gait Training Does the Patient Walk?: Yes Distance: 18', 15' Walk 10 feet (QC): 4 Walk 50 ft with 2 Turns(QC): 88 Walk 150 ft (QC): 88 Walking 10ft/uneven surface-QC: 88 Gait Persons Needed: 2 (For W/c and O2) Gait Assistive Device: FWW Wheelchair Training Does the Pt Use a Wheelchair?: Yes Distance: 150', 50', 50', 100' Wheel 50 ft with 2 turns (QC): 4 Wheel 150 ft (QC): 4 Type of Wheelchair: Manual Stair Training 1 Step (curb) (QC): 88 4 Steps (QC): 88 12 Steps (QC): 88 Balance Picking up an Object (QC): 4 (using compugraph operator) ADL-Treatment Eating (QC): 6 Oral Hygiene (QC): 6 Shower/Bathe Self (QC): 6 Upper Body Dressing (QC): 3 (Shirt independent. Assist to don/doff abdominal b alondra.) Lower Body Dressing (QC): 6 On/Off Footwear (QC): 6 Toileting Hygiene (QC): 6 Toilet Transfer (QC): 6 Assessment/Plan Assessment and Plan Assess & Plan/Chief Complaint Assessment: Disuse myopathy Recent cholecystectomy Continued abdominal pain Mental illness Slow recovery Hypertension Hypothyroidism Hyperlipidemia Morbid obesity Pulmonary hypertension New O2 dependence Recurrent UTI issues requiring cath specimen Plan: Aggressive rehab Home meds Supportive care 06/01/2022: Supportive care Blood pressure meds Continue recovery 06/02/2022: May be willing to see Behavioral Health due to increased depression but she will let me know Monitor BP 06/03/2022: Supportive care 06/04/2022: Monitor closely 06/05/2022: Monitor closely 06/06/2022: New O2 dependence 06/07/2022: In out cath DC Tuesday (1) Myopathy (2) Super obesity Status: Chronic (3) Primary hypertension (4) Chronic heart failure with preserved ejection fraction (5) Gallstones Status: Acute (6) S/P laparoscopic cholecystectomy Status: Acute (7) Pulmonary hypertension JENNIE CAM DO Jun 07, 2022 06:08
[2022-06-07 06:21] LABS: BILIRUBIN,TOTAL 0.3 MG/DL (0.1-1.0); CALCIUM 8.2 MG/DL (8.5-10.1); CREATININE SERUM 0.61 MG/DL (0.60-1.30); POTASSIUM 3.1 MMOL/L (3.6-5.0); TOTAL PROTEIN 5.3 GM/DL (6.4-8.2)
[2022-06-07 07:12] VITALS: BP 150/83
[2022-06-07] MEDS: PANTOPRAZOLE 40 MG (PROTONIX) TAB PO SCH ×2 (07:26→21:53)
[2022-06-07] MEDS: ONDANSETRON 4 MG (ZOFRAN) ORAL DISSOLVE TAB PO PRN (07:26)
[2022-06-07] MEDS: LOPERAMIDE 2 MG (IMODIUM) TABLET PO PRN (07:29)
[2022-06-07] MEDS: NITROFURANTOIN 100 MG (MACROBID) CAPSULE PO SCH ×2 (07:30→21:52)
[2022-06-07] MEDS: amLODIPine 10 MG (NORVASC) TAB PO SCH (07:30)
[2022-06-07] MEDS: ASPIRIN E.C. 81 MG (ECOTRIN) TAB PO SCH (07:30)
[2022-06-07] MEDS: HYDROcodone/APAP 7.5 MG/325 MG (LORTAB, LORCET PLUS) TABLET PO PRN ×2 (07:30→14:20)
[2022-06-07] MEDS: ALPRAZolam 0.5 MG (XANAX) TAB PO SCH ×2 (07:30→21:54)
[2022-06-07] MEDS: MICONAZOLE 2% POWDER (DESENEX AF) 90 GM TOP SCH ×2 (07:32→21:55)
[2022-06-07] MEDS: TERBINAFINE 1% CREAM 1 OZ (LamISIL) TUBE TP SCH (07:33)
[2022-06-07] MEDS: DICLOFENAC 1% GEL 100 GM (VOLTAREN) TUBE TOP SCH ×4 (07:33→21:59)
[2022-06-07] MEDS: DORZOLAMIDE/TIMOLOL (COSOPT) 2-0.68% 10 ML BTL OU SCH ×2 (07:33→21:55)
[2022-06-07] MEDS: CALCIUM CARB + VIT D 600 MG (CALCARB + D) TAB PO SCH (07:36)
--- NOTE | 2022-06-07 08:52 | Occupational Ther Daily Note ---
OT Current Status-Daily Note Subjective Pt alert, sitting in recliner. Pt agrees to therapy. Pt c/o nausea and has diarrhea throughout session. Nrsg aware. Mental Status/Objective Patient Orientation: Person, Place, Time, Situation Attachments: Other-See Comments (abdominal binder) ADL-Treatment Pt independent with eating. Pt declines shower due to frequent episodes of diarrhea and fatigue. Pt independent with toileting/toilet transfer 2x's.. Pt independent with oral care sitting at sink. Pt independent with upper body dressing. Per report from previous OT sessions, pt is able to retrieve clothing and AE from w/c level then complete dressing independently using AE for all lower body dressing/footwear. Pt took increased time to complete all tasks due to low activity tolerance, nausea and diarrhea. Therapy Code Descriptions/Definitions Functional [place] Measure: 0=Not Assessed/NA 4=Minimal Assistance 1=Total Assistance 5=Supervision or Setup 2=Maximal Assistance 6=Modified [place] 3=Moderate Assistance 7=Complete IndependenceSCALE: Activities may be completed with or without assistive devices. 9-Okdxfwcumb-bppihar completes the activity by him/herself with no assistance from a helper. 5-Set-up or Clean-up Assistance-helper sets up or cleans up; patient completes activity. [place] assists only prior to or following the activity. 4-Supervision or Touching Assistance-helper provides verbal cues and/or touching/steadying and/or contact guard assistance as patient completes activity. Assistance may be provided throughout the activity or intermittently. 3-Partial/Moderate Assistance-helper does LESS THAN HALF the effort. [place] lifts, holds or supports trunk or limbs, but provides less than half the effort. 2-Substantial/Maximal Assistance-helper does MORE THAN HALF the effort. [place] lifts or holds trunk or limbs and provides more than half the effort. 0-Swzvkdmiv-lcndlo does ALL the effort. Patient does none of the effort to complete the activity. Or, the assistance of 2 or more helpers is required for the patient to complete the activity. If activity was not attempted, code reason: 7-Patient Refused. 9-Not Applicable-not attempted and the patient did not perform the activity before the current illness, exacerbation or injury. 10-Not Attempted due to Environmental Limitations-(lack of equipment, weather restraints, etc.). 88-Not Attempted due to Medical Conditions or Safety Concerns. Eating (QC): 6 Oral Hygiene (QC): 6 Shower/Bathe Self (QC): 6 (Using shower bench, grabbars, hand held shower and LH sponge to complete. Clinical judgment and previous OT sessions.) Upper Body Dressing (QC): 6 Lower Body Dressing (QC): 6 On/Off Footwear: 6 Toileting Hygiene (QC): 6 Toilet Transfer (QC): 6 ADLs completed at w/c level or in sitting. BIMS CAM BIMS Expression of Ideas and Wants: Without Difficulty Understanding Verbal Content: Understands Brief Interview/Mental Status: Yes IRF FOX BIMS: IRF FOX BIMS Response (Comments) Value Repitition of Three Words Three 3 Recalls Socks Yes, No Cue Required 2 Recalls Blue Yes, No Cue Required 2 Recalls Bed Yes, No Cue Required 2 Year Correct 3 Month Accurate Within 5 Days 2 Day Correct 1 Total 15 Should Staff Asses[address] Mental [address] No CAM Mental Status Change/Baseline: 0 Inattention: 0 Disorganized thinkin Altered level of consciousness: 0 OT Short Term Goals Short Term Goals Time Frame: Jun 04, 2022 Upper body dressin Lower body dressin OT Building Cleaner Goals Group Home Goals Time Frame: Jun 18, 2022 Acute change in mental status: 0 Inattention: 0 Disorganized thinkin Altered level of consciousness: 0 Eating (QC): 6 (met) Oral Hygiene (QC): 6 (met) Toileting Hygiene (QC): 6 (met) Shower/Bathe Self (QC): 6 (met) Upper Body Dressing (QC): 6 (met) Lower Body Dressing (QC): 6 (met) On/Off Footwear (QC): 6 (met) Additional Goals: 1-Demonstrate ADL Tasks, 2-Verbalize Understanding, 3-ImproveStrength/Marjorie 1=Demonstrate adherence to instructed precautions during ADL tasks. 2=Patient will verbalize/demonstrate understanding of assistive devices/modifications for ADL. 3=Patient will improve strength/tolerance for activity to enable patient to perform ADL's. OT Education/Plan Problem List/Assessment Assessment: Decreased Activ Tolerance Pt requires assistance with showering, some ADLs, and IADLs at [facility]. She has assistance 2 times a week with showering and dressing, but on the other days she is able to dress herself and manage around her house at w/c level. Pt will be seen by OT in order to increase BUE strength and activity tolerance, and increase safety and independence with ADLs in order maximize LOF for safe return home. Discharge Recommendations Plan/Recommendations: Continue POC Therapy Discharge Recommendati: Scheduled Assistance, Post Acute OT Treatment Plan/Plan of Care Patient would benefit from OT for education, treatment and training to promote independence in ADL's, mobility, safety and/or upper extremity function for ADL's. Plan of Care: ADL Retraining, Functional Mobility, Group Exercise/Act as Ind, UE Funct Exercise/Act Treatment Duration: Jun 18, 2022 Frequency: At least 5 of 7 days/Wk (IRF) Estimated Hrs Per Day: 1.5 hours per day Agreement: Yes Rehab Potential: Fair Time Start Time: 07:00 Stop Time: 08:30 DATE: Jun 07, 2022 Total Time Billed (hr/min): 90 Billed Treatment Time 1 visit-ADL 6 (90 min) GIANLUCA GOODEN Jun 07, 2022 08:52
[2022-06-07] MEDS: RT--FLUTICASONE/SALMETEROL 232-14 (AIRDUO RespiCLICK) IH SCH ×2 (09:00→20:52)
[2022-06-07] MEDS: UMECLIDINIUM BROMIDE (INCRUSE ELLIPTA) 7'S IH SCH (09:01)
[2022-06-07] MEDS ORDERED: SCOPOLAMINE PATCH REMOVAL TP SCH (11:59)
[2022-06-07] MEDS: ARTIFICAL TEARS 0.4 ML UNIT DOSE (REFRESH PLUS) OU SCH ×2 (12:11→21:45)
[2022-06-07] MEDS: polyethylene glycoL POWDER 17 GM (MIRALAX) PACK PO SCH ×2 (12:11→21:45)
[2022-06-07] MEDS: DOCUSATE SODIUM 100 MG (COLACE) CAP PO SCH ×2 (12:11→21:45)
[2022-06-07] MEDS: SENNA W/DOCUSATE (SENOKOT S) TABLET PO SCH ×2 (12:11→21:45)
[2022-06-07] MEDS: SCOPOLAMINE 1.5 MG (TRANSDERM-SCOP) PATCH TD SCH (12:15)
[2022-06-07] MEDS: KCL 10 MEQ TAB (MICRO K) PO SCH (12:16)
[2022-06-07 13:00] LABS: BILIRUBIN,URINE NEGATIVE (NEGATIVE); CLARITY,URINE CLEAR; COLOR,URINE YELLOW; GLUCOSE, URINE (UA) NEGATIVE (NEGATIVE); KETONES,URINE NEGATIVE (NEGATIVE); LEUKOCYTE ESTERASE ,URINE TRACE (NEGATIVE); NITRITE,URINE NEGATIVE (NEGATIVE); PH,URINE 6.5 (5-9); PROTEIN,URINE NEGATIVE (NEGATIVE)
[2022-06-07 13:08] LABS: BACTERIA,URINE TRACE /HPF; RBC,URINE 0-2 /HPF; SQUAMOUS EPITHELIAL CELL,UR 0-2 /HPF
--- NOTE | 2022-06-07 13:10 | Physical Therapy Daily Note ---
PT Daily Note-Current Subjective Pt laying Supine n bed. Pt reports nausea and fatigue limiting pt this morning. Pt agrees to PT for QC scoring for anticipated d/c tomorrow. Pain Numeric Pain Scale: 4 Location: Incisional Location Body Site: Abdomen Pain Description: Ache Section J - Health Conditions 1. Rarely or not at all 2. Occasionally 3. Frequently 4. Almost constantly 8. Unable to answer Pain Effect on Sleep: 2 Pain Interference with Therapy: 3 Pain Interference w/Day-to-Day: 2 Mental Status Patient Orientation: Person, Place, Situation Attachments: Other-See Comments (AbdAnderson Carter) Transfers SCALE: Activities may be completed with or without assistive devices. 8-Kluxosqehp-ahfwacx completes the activity by him/herself with no assistance from a helper. 5-Set-up or Clean-up Assistance-helper sets up or cleans up; patient completes activity. [place] assists only prior to or following the activity. 4-Supervision or Touching Assistance-helper provides verbal cues and/or touching/steadying and/or contact guard assistance as patient completes activity. Assistance may be provided throughout the activity or intermittently. 3-Partial/Moderate Assistance-helper does LESS THAN HALF the effort. [place] lifts, holds or supports trunk or limbs, but provides less than half the effort. 2-Substantial/Maximal Assistance-helper does MORE THAN HALF the effort. [place] lifts or holds trunk or limbs and provides more than half the effort. 1-Ldzfdeodd-tfvnsy does ALL the effort. Patient does none of the effort to complete the activity. Or, the assistance of 2 or more helpers is required for the patient to complete the activity. If activity was not attempted, code reason: 7-Patient Refused. 9-Not Applicable-not attempted and the patient did not perform the activity before the current illness, exacerbation or injury. 10-Not Attempted due to Environmental Limitations-(lack of equipment, weather restraints, etc.). 88-Not Attempted due to Medical Conditions or Safety Concerns. Roll Left & Right (QC): 6 Sit to Lying (QC): 6 Lying to Sitting/Side of Bed(Q: 6 Sit to Stand (QC): 6 Chair/Mrj-vn-Kvtwe Xfer(QC): 6 Toilet Transfer (QC): 6 Car Transfer (QC): 6 Weight Bearing Full Weight Bearing Full Weight Bearing Gait Training Does the Patient Walk?: Yes Distance: 5' Walk 10 feet (QC): 88 Walk 50 ft with 2 Turns(QC): 88 Walk 150 ft (QC): 88 Walking 10ft/uneven surface-QC: 88 Gait Assistive Device: FWW Wheelchair Training Does the Pt Use a Wheelchair?: Yes Wheel 50 ft with 2 turns (QC): 6 Wheel 150 ft (QC): 6 Type of Wheelchair: Manual Stair Training #of Steps: 0 1 Step (curb) (QC): 88 4 Steps (QC): 88 12 Steps (QC): 88 Balance Picking up an Object (QC): 4 Special Test Comments Pt completes standing, but 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 Exercises Seated Therapy Exercises: Ankle pumps, Long arc quads, Hip flexion, Hip abd/add, Glut set Seated Reps: 20 Treatments [id number]: Pt completes QC scoring items listed above. Pt takes RB as needed for fatigue and nausea. Pt returns to room after tx to TF to recliner for rest. All needs met,call light in hand. [id number]: Pt TF from Supine in bed to EOB to [facility]. Pt uses BR then completes Seated EX in [facility] before TF back to bed to rest. All needs met, call light in hand. Assessment Current Status: Fair Progress Pt is limited by perceived pain and nausea. Pt self limits at times. PT Short Term Goals Short Term Goals Time Frame: Jun 07, 2022 Roll Left & Right: 4 (SBA) Sit to lyin (SBA) Lying to sitting on side of be: 4 (SBA) Sit to stand: 4 (SBA) Chair/ird-uh-uujli transfer: 4 (SBA) Toilet transfer: 4 (SBA) Car transfer: 4 (SBA) Walk 10 feet: 4 (SBA) Walk 50 feet with two turns: 88 Walk 150 feet: 88 Walking 10ft on uneven surface: 88 1 step (curb): 88 4 steps: 88 12 steps: 88 Picking up objects: 4 (SBA) Does pt use a wc or scooter: Yes Type: Manual PT Benefits Counselor Goals Benefits Counselor Goals PT Fdc Goals Time Frame: Jun 21, 2022 Roll Left & Right (QC): 6 Sit to Lying (QC): 6 Lying-Sitting on Side/Bed(QC): 6 Sit to Stand (QC): 6 Chair/Ijh-st-Rvapg Xfer(QC): 6 Toilet Transfer (QC): 6 Car Transfer (QC): 6 Does the Patient Walk: Yes Walk 10 feet (QC): 6 Walk 50ft with 2 Turns (QC): 88 Walk 150 ft (QC): 88 Walking 10ft on Uneven Surface: 88 1 Step (curb) (QC): 88 4 Steps (QC): 88 12 Steps (QC): 88 Picking up an Object (QC): 6 Wheel 50 feet with 2 turns (QC: 6 Wheel 150 feet: 6 PT Plan Problem List Problem List: Activity Tolerance, Functional Strength Treatment/Plan Treatment Plan: Continue Plan of Care Treatment Plan: Bed Mobility, Education, Functional Activity Marjorie, Functional Strength, Group Therapy, Gait, Safety, Therapeutic Exercise, Transfers Treatment Duration: Jun 21, 2022 Frequency: At least 5 of 7 days/Wk (IRF) Estimated Hrs Per Day: 1.5 hours per day Patient and/or Family Agrees t: Yes Time Time In: 1000 Time Out: 1100 DATE: Jun 07, 2022 Total Billed Treatment Time: 60 Total Billed Treatment [id number]: [facility] (15m) & FA x3 (45m) [id number]: 1, FA (15m) & EX (15m) KELSEY VILLA PTA Jun 07, 2022 13:10
[2022-06-07 20:09] VITALS: BP 128/60
[2022-06-07] MEDS: LATANOPROSTENE BUNOD 0.024% OU SCH (21:51)
[2022-06-07] MEDS: OXcarbazepine (TRILEPTAL) 300 MG TAB PO SCH (21:53)
[2022-06-07] MEDS: MULTIVIT W/MINERALS TAB (THERAGRAN M) PO SCH (21:54)
[2022-06-07] MEDS: OXYBUTYNIN (DITROPAN) 5 MG TAB PO SCH (21:54)
[2022-06-07] MEDS: ASENAPINE 10 MG SL SCH (21:57)
[2022-06-08] MEDS: ENOXAPARIN 40 MG/0.4 ML (LOVENOX) SYR SC SCH (04:55)
[2022-06-08] MEDS ORDERED: ONDA4TAB11 PO (05:53)
[2022-06-08] MEDS ORDERED: CHOL4PAC3 PO (05:53)
[2022-06-08] MEDS ORDERED: UMEC62.5 IH (05:53)
[2022-06-08] MEDS ORDERED: HYDR-3817 PO (05:53)
[2022-06-08] MEDS ORDERED: NITR100C10 PO (05:53)
[2022-06-08] MEDS ORDERED: SCOP1PAT10 TD (05:53)
--- NOTE | 2022-06-08 05:55 | Discharge Summary ---
Diagnosis/Chief Complaint Date of Admission May 31, 2022 at 12:30 Date of Discharge Discharge Date: Jun 08, 2022 Discharge Diagnosis Assessment: Disuse myopathy Recent cholecystectomy Continued abdominal pain Mental illness Slow recovery Hypertension Hypothyroidism Hyperlipidemia Morbid obesity Pulmonary hypertension New O2 dependence Recurrent UTI issues requiring cath specimen Plan: Aggressive rehab Home meds Supportive care 06/01/2022: Supportive care Blood pressure meds Continue recovery 06/02/2022: May be willing to see Behavioral Health due to increased depression but she will let me know Monitor BP 06/03/2022: Supportive care 06/04/2022: Monitor closely 06/05/2022: Monitor closely 06/06/2022: New O2 dependence 06/07/2022: In out cath DC Tuesday (1) Myopathy (2) Super obesity Status: Chronic (3) Primary hypertension (4) Chronic heart failure with preserved ejection fraction (5) Gallstones Status: Acute (6) S/P laparoscopic cholecystectomy Status: Acute (7) Pulmonary hypertension Discharge Summary Discharge Physical Examination Allergies: Uncoded Allergies: MERCURY (Allergy, Mild, unknown, 05/24/22) Vitals & I&Os Vital Signs Date Time Temp Pulse Resp B/P (MAP) Pulse Ox O2 Delivery O2 Flow Rate FiO2 06/08/22 08:41 Room Air 06/08/22 07:42 95 1.00 06/08/22 07:36 36.8 67 22 150/78 (102) General Appearance: Alert, Oriented X3, Cooperative Respiratory: Clear to Auscultation Cardiovascular: Regular Rate Psych/Mental Status: Mental Status NL Hospital Course Was the Problem List Reviewed?: Yes Hospital Summary: Ms. Steele is a 67 year old female who presented to the in-patient rehabilitation unit on 05/31 with disuse myopathy. Patient was transferred to rehab unit in need of aggressive therapy following a complicated hospital course s/p cholecystectomy. Patient presents with a PMHx including: incarcerated umbilical hernia corrected with hernia surgery, severe hypertension, obesity, myopathy, pulmonary HTN, L knee replacement, frequent falls, intertrigo, decubitus ulcers, debility, CHF, acute respiratory failure, COPD, and gallstones treated with laparoscopic cholecystectomy. During the patient's stay with the rehab unit, the patient was evaluated by PT and OT. -PT: Upon initial evaluation the patient presented with diminished coordination, decreased strength of bilateral lower extremities, and required assistance with bed mobility and transfers. Prior to arrival the patient was reportedly independent with bed mobility, transfers, and ambulating short distances. With PT the patient has made progress and is independently performing supine to seated transfers, sit to stand transfers, car transfers, ambulation with rolling walker, and picking objects off of the ground with assistance. -OT: Upon initial evaluation the patient was independent with eating, oral care, showering, and upper extremity dressing. Patient required minimal assistance with lower extremity dressing and moderate assistance with footwear. OT's goal was to increase safety, independence with ADL, functional mobility, activity tolerance, and bilateral upper extremity strength. The patient made good progress toward goals and has returned near to original activity/ADL baseline. Plan per discharge: 1. Follow-up with PCP. In-patient PT/OT not needed at this time. Refer to PCP's guidance for further improvement of functioning. 2. Follow-up with surgery as instructed. 3. Cystitis; continue PO Macrobid therapy 4. Hypokalemia; continue PO K supplementation 5. Bowel incontinence; discontinue stool softeners Labs (last 24 hrs) Laboratory Tests 06/01/22 05:30: White Blood Count 7.9, Red Blood Count 4.10, Hemoglobin 11.6, Hematocrit 38, Mean Corpuscular Volume 92, Mean Corpuscular Hemoglobin 28, Mean Corpuscular Hemoglobin Concent 31L, Red Cell Distribution Width 14.7H, Platelet Count 220, Mean Platelet Volume 9.6, Immature Granulocyte % (Auto) 0, Neutrophils (%) (Auto) 74, Lymphocytes (%) (Auto) 7L, Monocytes (%) (Auto) 12, Eosinophils (%) (Auto) 7, Basophils (%) (Auto) 0, Neutrophils # (Auto) 5.8, Lymphocytes # (Auto) 0.6L, Monocytes # (Auto) 0.9, Eosinophils # (Auto) 0.5H, Basophils # (Auto) 0.0, Immature Granulocyte # (Auto) 0.0, Sodium Level 136, Potassium Level 3.7, Chloride Level 96L, Carbon Dioxide Level 30, Anion Gap 10, Blood Urea Nitrogen 5L, Creatinine 0.59L, Estimat Glomerular Filtration Rate 97, BUN/Creatinine Ratio 8, Glucose Level 118H, Calcium Level 8.9, Corrected Calcium 9.5, Total Bilirubin 0.6, Aspartate Amino Transf (AST/SGOT) 16, Alanine Aminotransferase (ALT/SGPT) 15, Alkaline Phosphatase 55, Total Protein 5.8L, Albumin 3.2 06/07/22 05:47: White Blood Count 6.6, Red Blood Count 3.72L, Hemoglobin 10.8L, Hematocrit 34L, Mean Corpuscular Volume 92, Mean Corpuscular Hemoglobin 29, Mean Corpuscular Hemoglobin Concent 32, Red Cell Distribution Width 14.7H, Platelet Count 289, Mean Platelet Volume 10.6, Immature Granulocyte % (Auto) 1, Neutrophils (%) (Auto) 71, Lymphocytes (%) (Auto) 12, Monocytes (%) (Auto) 11, Eosinophils (%) (Auto) 5, Basophils (%) (Auto) 0, Neutrophils # (Auto) 4.7, Lymphocytes # (Auto) 0.8L, Monocytes # (Auto) 0.8, Eosinophils # (Auto) 0.3, Basophils # (Auto) 0.0, Immature Granulocyte # (Auto) 0.1, Sodium Level 137, Potassium Level 3.1L, Chloride Level 99, Carbon Dioxide Level 27, Anion Gap 11, Blood Urea Nitrogen 5L , Creatinine 0.61, Estimat Glomerular Filtration Rate 97, BUN/Creatinine Ratio 8, Glucose Level 93, Calcium Level 8.2L, Corrected Calcium 9.0, Total Bilirubin 0.3, Aspartate Amino Transf (AST/SGOT) 30, Alanine Aminotransferase (ALT/SGPT) 18, Alkaline Phosphatase 63, Total Protein 5.3L, Albumin 3.0L 06/07/22 12:10: Urine Color YELLOW, Urine Clarity CLEAR, Urine pH 6.5, Urine Specific [place] 1.010L, Urine Protein NEGATIVE, Urine Glucose (UA) NEGATIVE, Urine Ketones NEGATIVE, Urine Nitrite NEGATIVE, Urine Bilirubin NEGATIVE, Urine Urobilinogen 0.2, Urine Leukocyte Esterase TRACEH, Urine RBC (Auto) TRACE-IH, Urine RBC 0-2, Urine WBC 2-5, Urine Squamous Epithelial Cells 0-2, Urine Crystals NONE, Urine Bacteria TRACE, Urine Casts NONE, Urine Mucus NEGATIVE, Urine Culture Indicated NO Pending Labs Laboratory Tests 06/01/22 05:30: White Blood Count 7.9, Red Blood Count 4.10, Hemoglobin 11.6, Hematocrit 38, Mean Corpuscular Volume 92, Mean Corpuscular Hemoglobin 28, Mean Corpuscular Hemoglobin Concent 31, Red Cell Distribution Width 14.7, Platelet Count 220, Mean Platelet Volume 9.6, Immature Granulocyte % (Auto) 0, Neutrophils (%) (Auto) 74, Lymphocytes (%) (Auto) 7, Monocytes (%) (Auto) 12, Eosinophils (%) (Auto) 7, Basophils (%) (Auto) 0, Neutrophils # (Auto) 5.8, Lymphocytes # (Auto) 0.6, Monocytes # (Auto) 0.9, Eosinophils # (Auto) 0.5, Basophils # (Auto) 0.0, Immature Granulocyte # (Auto) 0.0, Sodium Level 136, Potassium Level 3.7, Chloride Level 96, Carbon Dioxide Level 30, Anion Gap 10, Blood Urea Nitrogen 5, Creatinine 0.59, Estimat Glomerular Filtration Rate 97, BUN/Creatinine Ratio 8, Glucose Level 118, Calcium Level 8.9, Corrected Calcium 9.5, Total Bilirubin 0.6, Aspartate Amino Transf (AST/SGOT) 16, Alanine Aminotransferase (ALT/SGPT) 15, Alkaline Phosphatase 55, Total Protein 5.8, Albumin 3.2 06/07/22 05:47: White Blood Count 6.6, Red Blood Count 3.72, Hemoglobin 10.8, Hematocrit 34, Mean Corpuscular Volume 92, Mean Corpuscular Hemoglobin 29, Mean Corpuscular Hemoglobin Concent 32, Red Cell Distribution Width 14.7, Platelet Count 289, Mean Platelet Volume 10.6, Immature Granulocyte % (Auto) 1, Neutrophils (%) (Auto) 71, Lymphocytes (%) (Auto) 12, Monocytes (%) (Auto) 11, Eosinophils (%) (Auto) 5, Basophils (%) (Auto) 0, Neutrophils # (Auto) 4.7, Lymphocytes # (Auto) 0.8, Monocytes # (Auto) 0.8, Eosinophils # (Auto) 0.3, Basophils # (Auto) 0.0, Immature Granulocyte # (Auto) 0.1, Sodium Level 137, Potassium Level 3.1, Chloride Level 99, Carbon Dioxide Level 27, Anion Gap 11, Blood Urea Nitrogen 5, Creatinine 0.61, Estimat Glomerular Filtration Rate 97, BUN/Creatinine Ratio 8, Glucose Level 93, Calcium Level 8.2, Corrected Calcium 9.0, Total Bilirubin 0.3, Aspartate Amino Transf (AST/SGOT) 30, Alanine Aminotransferase (ALT/SGPT) 18, Alkaline Phosphatase 63, Total Protein 5.3, Albumin 3.0 06/07/22 12:10: Urine Color YELLOW, Urine Clarity CLEAR, Urine pH 6.5, Urine Specific [place] 1.010, Urine Protein NEGATIVE, Urine Glucose (UA) NEGATIVE, Urine Ketones NEGATIVE, Urine Nitrite NEGATIVE, Urine Bilirubin NEGATIVE, Urine Urobilinogen 0.2, Urine Leukocyte Esterase TRACE, Urine RBC (Auto) TRACE-I, Urine RBC 0-2, Urine WBC 2-5, Urine Squamous Epithelial Cells 0-2, Urine Crystals NONE, Urine Bacteria TRACE, Urine Casts NONE, Urine Mucus NEGATIVE, Urine Culture Indicated NO Discharge Home Medications: Active Scripts Active Transderm-Scop (Scopolamine) 1 Mg/3 Day Patch.td72 1.5 Mg TD Q72H Ondansetron Odt (Ondansetron) 4 Mg Tab.rapdis 4 Mg PO Q6H PRN Prevalite Packet (Cholestyramine/Aspartame) 4 Gram Powd.pack 4 Gm PO ACHS Incruse Ellipta (Umeclidinium Bowie) 62.5 Mcg/Actuation Blst.w.dev 0 Inh IH DAILY@0800 daily Nitrofurantoin [place]-Mcr 100 mg (Nitrofurantoin Monohyd/M-Cryst) 100 Mg Capsule 100 Mg PO BID Hydrocodone-Acetamin 7.5-325 (Hydrocodone/Acetaminophen) 7.5 Mg-325 Mg Tablet 1 Each PO Q4H PRN Reported Omeprazole 40 Mg Capsule.dr 40 Mg PO UD [T-3] 90 Mcg PO DAILY Ventolin Hfa (Albuterol Sulfate) 90 Mcg Hfa.aer.ad 2 Puff INH Q6H PRN [Cranberry Con W/Vitc] 30,000 Cap 1 Ea PO DAILY Aspirin EC (Aspirin) 81 Mg Tablet.dr 81 Mg PO DAILY Calcium 600 + Vit D Tablet (Calcium Carbonate/Vitamin D3) 600 Mg Calcium-10 Mcg (400 Unit) Tablet 1 Each PO DAILY Terbinafine (Terbinafine HCl) 1 % Cream..g. 1 Applic TOP DAILY APPLIES TO THE CORNER OF MOUTH [Probiotic] 200 BILLION Cap 1 Ea PO DAILY Benadryl (Diphenhydramine HCl) 25 Mg Capsule 50 Mg PO BID PRN Azo Bladder Control Capsule (Pumpkin Seed Extract/Soy Germ) 300 Mg Capsule 2 Ea PO BID Systane Ultra 0.4-0.3% Eye Drp (Propylene Glycol/Peg 400) 0.3 %-0.4 % Drops 1 Drop OU UD PRN Ocuvite Adult 50 Plus Softgel (Mv-Mn/Om3/Dha/Epa/Fish/Lut/Adolfo) 250 Mg (90 Mg-160 Mg)-5 Mg-1 Mg Capsule 1 Each PO HS Oxybutynin Chloride 5 Mg Tablet 10 Mg PO HS TAKES 2 (5MG) TABS Oxcarbazepine 300 Mg Tablet 600 Mg PO HS TAKES 2 (300MG) TABS Restasis (Cyclosporine) 0.05 % Droperette 1 Drop OU BID Amlodipine Besylate 10 Mg Tablet 10 Mg PO DAILY Citalopram HBr (Citalopram Hydrobromide) 40 Mg Tablet 40 Mg PO DAILY Lamotrigine 200 Mg Tablet 400 Mg PO HS TAKES 2 (200MG) TABS Alprazolam 0.5 Mg Tablet 1 Mg PO BID TAKES 2 (0.5MG) TABS Saphris (Asenapine Maleate) 10 Mg Tab.subl 20 Mg SL HS TAKES 2 (10MG) TABS Dorzolamide-Timolol Eye Drops (Dorzolamide HCl/Timolol Maleat) 22.3 Mg-6.8 Mg/Ml Drops 1 Drop OU BID Breztri Aerosphere Inhaler (Budesonide/Glycopyr/Formoterol) 160 Mcg-9 Mcg-4.8 Mcg/Actuation Hfa.aer.ad 2 Puff INH BID Vyzulta (Latanoprostene Bunod) 0.024 % Drops 1 Drop OU HS Nexium (Esomeprazole Magnesium) 40 Mg Cap 40 Mg PO BID [Ultimate Iron] 1 Ea PO DAILY Instructions to patient/family Please see electronic discharge instructions given to patient. Diagnosis/Problems Diagnosis/Problems (1) Myopathy (2) Super obesity Status: Chronic (3) Primary hypertension (4) Chronic heart failure with preserved ejection fraction (5) Gallstones Status: Acute (6) S/P laparoscopic cholecystectomy Status: Acute (7) Pulmonary hypertension JENNIE CAM DO Jun 08, 2022 05:55
--- NOTE | 2022-06-08 05:55 | D/C HH Face to Face Order ---
D/C Face to Face Orders Reconcile Patient Problems Problems Reviewed?: Yes Instructions for Patient Lizy Patient Instructions/FollowUp: PCP 1 week Physician to follow Patient: Breana Roman Diet for Home: No Restrictions Patient Problems: Debility Patient Data-Allergies,Ht & Wt Patient Allergies: Uncoded Allergies: MERCURY (Allergy, Mild, unknown, 05/24/22) Height (Feet): 5 Height (Inches): 6.00 Weight (Pounds): 254 Weight (Ounces): 0 Home Health Need/Face to Face Date of Face to Face: Jun 08, 2022 Clinical Findings: Generalized weakness and fatigue, Muscle weakness I have seen Pt [id number]: Yes Discharged To: Home Diagnosis/Conditions: Debility Patient is Homebound due to: Muscle weakness Homebound Status Due to the above stated illness, injury or surgical procedure (medical co ndition or diagnosis) and associated clinical findings, the patient is homebound because of his/her inability to leave home except with aid of a supportive device and/or person AND leaving the home requires a considerable and taxing effort or is medically contraindicated. Pt req the following assistanc: Walker, Wheelchair Home Health Nursing Orders Home Health Services Order: Nursing Services, Envelope Sealer Operator-Evaluate & Treat, Physical Therapy-Evaluate & Treat Certify Stmt I certify that this patient is under my care and that I, a nurse practitioner or a physician; a physician assistant working with me, had a face to face encounter that - meets the physician face to face encounter requirements with this patient as dated. JENNIE CAM DO Jun 08, 2022 05:55
[2022-06-08] MEDS: KCL 10 MEQ TAB (MICRO K) PO SCH (06:25)
[2022-06-08] MEDS: CHOLESTYRAMINE 4 GM (QUESTRAN LITE, PREVALITE) PKT PO SCH ×2 (06:25→11:03)
[2022-06-08] MEDS: LOPERAMIDE 2 MG (IMODIUM) TABLET PO PRN (06:29)
[2022-06-08] MEDS: UMECLIDINIUM BROMIDE (INCRUSE ELLIPTA) 7'S IH SCH (07:34)
[2022-06-08] MEDS: RT--FLUTICASONE/SALMETEROL 232-14 (AIRDUO RespiCLICK) IH SCH (07:35)
[2022-06-08 07:36] VITALS: BP 150/78
[2022-06-08] MEDS: ASPIRIN E.C. 81 MG (ECOTRIN) TAB PO SCH (08:00)
[2022-06-08] MEDS: ALPRAZolam 0.5 MG (XANAX) TAB PO SCH (08:00)
[2022-06-08] MEDS: ARTIFICAL TEARS 0.4 ML UNIT DOSE (REFRESH PLUS) OU SCH (08:00)
[2022-06-08] MEDS: SENNA W/DOCUSATE (SENOKOT S) TABLET PO SCH (08:00)
[2022-06-08] MEDS: NITROFURANTOIN 100 MG (MACROBID) CAPSULE PO SCH (08:00)
[2022-06-08] MEDS: CALCIUM CARB + VIT D 600 MG (CALCARB + D) TAB PO SCH (08:00)
[2022-06-08] MEDS: PANTOPRAZOLE 40 MG (PROTONIX) TAB PO SCH (08:00)
[2022-06-08] MEDS: amLODIPine 10 MG (NORVASC) TAB PO SCH (08:00)
[2022-06-08] MEDS: DOCUSATE SODIUM 100 MG (COLACE) CAP PO SCH (08:01)
[2022-06-08] MEDS: polyethylene glycoL POWDER 17 GM (MIRALAX) PACK PO SCH (08:01)
[2022-06-08] MEDS: DORZOLAMIDE/TIMOLOL (COSOPT) 2-0.68% 10 ML BTL OU SCH (08:02)
[2022-06-08] MEDS: MICONAZOLE 2% POWDER (DESENEX AF) 90 GM TOP SCH (08:02)
[2022-06-08] MEDS: TERBINAFINE 1% CREAM 1 OZ (LamISIL) TUBE TP SCH (08:03)
[2022-06-08] MEDS: DICLOFENAC 1% GEL 100 GM (VOLTAREN) TUBE TOP SCH ×2 (08:03→13:52)
--- NOTE | 2022-06-08 11:41 | Therapy Team Discharge Summary ---
Therapy Discharge Summary Discharge Recommendations Date of Discharge Physical Therapy Patient came in with disuse myopathy, s/p cholecystitis on May 27, 2022. Patient's prior function was independent in bed mobility, transfers, W/C propulsion, and ambulation of a few feet at a time before coming into the hospital. Upon admission patient had diminished coordination, decreased strength on BLE's, independent in W/C propulsion using hands and feet, able to hand picker an object on the ground using a construction inspector with CGA, required CGA for bed mobility and transfers using FFW except Min A for [id number] swinging legs into the bed. Patient CGA for gait only taking a few steps at a time with FWW. Patient has been performing bed mobility and transfer training, endurance and balance training, gait training and W/C propulsion, and functional strengthening in order to be independent at home. Patient has achieved LTG of being independent in bed mobility, transfers, and ambulating taking a few steps at a time using a FWW. Now, patient is performing rolling and supine <-> sit with independence, sit <-> stand and transfers independent, car transfer independent, ambulating 5' with a rolling walker, independent with WC mobility and can hand picker an object from the floor with CGA/SBA. Patient is discharging from hospital today and will be discharging from PT at this time. Roll Left to Right (QC): 6 Sit to Lying (QC): 6 Lying to Sitting/Side of Bed(Q: 6 Sit to Stand (QC): 6 Chair/Vpz-pv-Zrxdv Xfer(QC): 6 Toilet Transfer (QC): 6 Car Transfer (QC): 6 Does the Patient Walk: Yes Mode of Locomotion: Both Walk 10 feet (QC): 88 Walk 50 ft with 2 Turns(QC): 88 Walk 150 ft (QC): 88 Walking 10ft on uneven surface: 88 Distance: 5' Gait Assistive Device: FWW Does the Pt Use a Wheelchair: Yes Wheelchair Distance: 150', 50', 50', 100' Wheel 50 ft with 2 turns (QC): 6 Wheel 150 ft (QC): 6 Type of Wheelchair: Manual #of Steps: 0 1 Step (curb) (QC): 88 4 Steps (QC): 88 12 Steps (QC): 88 Balance Sitting Static: Normal Balance Sitting Dynamic: Normal Balance-Standing Static: Fair Picking up an Object (QC): 4 Occupational Therapy Decreased Activ Tolerance Eating (QC): 6 Oral Hygiene (QC): 6 Shower/Bathe Self (QC): 6 (Using shower bench, grabbars, hand held shower and LH sponge to complete. Clinical judgment and previous OT sessions.) Upper Body Dressing (QC): 6 Lower Body Dressing (QC): 6 On/Off Footwear (QC): 6 Toileting Hygiene (QC): 6 PT Halfway Goals Lead Printer Goals PT Halfway Goals Time Frame: Jun 21, 2022 Roll Left to Right (QC): 6 Sit to Lying (QC): 6 Lying-Sitting on Side/Bed(QC): 6 Sit to Stand (QC): 6 Chair/Oce-bq-Rovbo Xfer(QC): 6 Toilet/Commode Transfer (QC): 6 Car Transfer (QC): 6 Does the Patient Walk: Yes Walk 10 feet (QC): 6 Walk 10ft-Uneven Surface(QC): 88 Walk 50ft with 2 Turns (QC): 88 Walk 150 ft (QC): 88 Wheel 50 feet with 2 turns (QC: 6 Wheel 150 feet: 6 1 Step (curb) (QC): 88 4 Steps (QC): 88 12 Steps (QC): 88 Picking up an Object (QC): 6 OT Lead Printer Goals Halfway Goals Time Frame: Jun 18, 2022 Acute change in mental status: 0 Inattention: 0 Disorganized thinkin Altered level of consciousness: 0 Eating (QC): 6 (met) Oral Hygiene (QC): 6 (met) Toileting Hygiene (QC): 6 (met) Shower/Bathe Self (QC): 6 (met) Upper Body Dressing (QC): 6 (met) Lower Body Dressing (QC): 6 (met) On/Off Footwear (QC): 6 (met) Additional Goals: 1-Demonstrate ADL Tasks, 2-Verbalize Understanding, 3- ImproveStrength/Marjorie 1=Demonstrate adherence to instructed precautions during ADL tasks. 2=Patient will verbalize/demonstrate understanding of assistive devices/modifications for ADL. 3=Patient will improve strength/tolerance for activity to enable patient to perform ADL's. HALIE PATEL PT Jun 08, 2022 11:41
--- NOTE | 2022-06-08 11:43 | Therapy Team Discharge Summary ---
Therapy Discharge Summary Discharge Recommendations Date of Discharge Physical Therapy Roll Left to Right (QC): 6 Sit to Lying (QC): 6 Lying to Sitting/Side of Bed(Q: 6 Sit to Stand (QC): 6 Chair/Emn-vl-Ywxjs Xfer(QC): 6 Toilet Transfer (QC): 4 Car Transfer (QC): 6 Does the Patient Walk: Yes Mode of Locomotion: Both Walk 10 feet (QC): 88 Walk 50 ft with 2 Turns(QC): 88 Walk 150 ft (QC): 88 Walking 10ft on uneven surface: 88 Distance: 5' Gait Assistive Device: FWW Does the Pt Use a Wheelchair: Yes Wheelchair Distance: 150', 50', 50', 100' Wheel 50 ft with 2 turns (QC): 6 Wheel 150 ft (QC): 6 Type of Wheelchair: Manual #of Steps: 0 1 Step (curb) (QC): 88 4 Steps (QC): 88 12 Steps (QC): 88 Balance Sitting Static: Normal Balance Sitting Dynamic: Normal Balance-Standing Static: Fair Picking up an Object (QC): 4 Occupational Therapy Pt admitted to ARU with disuse myopathy. At [facility], pt had assistance 2x/wk with showering/dressing and IADLS. Upon initial evaluation, pt was independent with eating, set up oral care, showering, UE dressing, min A LE dressing and toileting and mod A footwear. OT tx focused on increasing safety and independence with ADLS and functional mobility, and increasing BUE Strength and activity tolerance. Pt made good progress towards goals, attaining all LTGS. Pt scheduled to discharge from facility, d/c from OT. Decreased Activ Tolerance Eating (QC): 6 Oral Hygiene (QC): 6 Shower/Bathe Self (QC): 6 (Using shower bench, grabbars, hand held shower and LH sponge to complete. Clinical judgment and previous OT sessions.) Upper Body Dressing (QC): 6 Lower Body Dressing (QC): 6 On/Off Footwear (QC): 6 Toileting Hygiene (QC): 6 PT Retirement Goals Retirement Goals PT Fabrication Specialist Goals Time Frame: Jun 21, 2022 Roll Left to Right (QC): 6 Sit to Lying (QC): 6 Lying-Sitting on Side/Bed(QC): 6 Sit to Stand (QC): 6 Chair/Bbn-jc-Xguyu Xfer(QC): 6 Toilet/Commode Transfer (QC): 6 Car Transfer (QC): 6 Does the Patient Walk: Yes Walk 10 feet (QC): 6 Walk 10ft-Uneven Surface(QC): 88 Walk 50ft with 2 Turns (QC): 88 Walk 150 ft (QC): 88 Wheel 50 feet with 2 turns (QC: 6 Wheel 150 feet: 6 1 Step (curb) (QC): 88 4 Steps (QC): 88 12 Steps (QC): 88 Picking up an Object (QC): 6 OT Retirement Goals Fabrication Specialist Goals Time Frame: Jun 18, 2022 Acute change in mental status: 0 Inattention: 0 Disorganized thinkin Altered level of consciousness: 0 Eating (QC): 6 (met) Oral Hygiene (QC): 6 (met) Toileting Hygiene (QC): 6 (met) Shower/Bathe Self (QC): 6 (met) Upper Body Dressing (QC): 6 (met) Lower Body Dressing (QC): 6 (met) On/Off Footwear (QC): 6 (met) Additional Goals: 1-Demonstrate ADL Tasks, 2-Verbalize Understanding, 3- ImproveStrength/Marjorie 1=Demonstrate adherence to instructed precautions during ADL tasks. 2=Patient will verbalize/demonstrate understanding of assistive devices/modifications for ADL. 3=Patient will improve strength/tolerance for activity to enable patient to perform ADL's. AMARA HDEZ OT Jun 08, 2022 11:43
--- NOTE | 2022-06-08 12:26 | Progress Note ---
ASTRID OATES 06/08/22 1226: Progress Note Hospital Summary: Ms. Steele is a 67 year old female who presented to the in-patient rehabilitation unit on 05/31 with disuse myopathy. Patient was transferred to rehab unit in need of aggressive therapy following a complicated hospital course s/p cholecystectomy. Patient presents with a PMHx including: incarcerated umbilical hernia corrected with hernia surgery, severe hypertension, obesity, myopathy, pulmonary HTN, L knee replacement, frequent falls, intertrigo, decubitus ulcers, debility, CHF, acute respiratory failure, COPD, and gallstones treated with laparoscopic cholecystectomy. During the patient's stay with the rehab unit, the patient was evaluated by PT and OT. -PT: Upon initial evaluation the patient presented with diminished coordination, decreased strength of bilateral lower extremities, and required assistance with bed mobility and transfers. Prior to arrival the patient was reportedly independent with bed mobility, transfers, and ambulating short distances. With PT the patient has made progress and is independently performing supine to seated transfers, sit to stand transfers, car transfers, ambulation with rolling walker, and picking objects off of the ground with assistance. -OT: Upon initial evaluation the patient was independent with eating, oral care, showering, and upper extremity dressing. Patient required minimal assistance with lower extremity dressing and moderate assistance with footwear. OT's goal was to increase safety, independence with ADL, functional mobility, activity tolerance, and bilateral upper extremity strength. The patient made good progress toward goals and has returned near to original activity/ADL baseline. Plan per discharge: 1. Follow-up with PCP. In-patient PT/OT not needed at this time. Refer to PCP's guidance for further improvement of functioning. 2. Follow-up with surgery as instructed. 3. Cystitis; continue PO Macrobid therapy 4. Hypokalemia; continue PO K supplementation 5. Bowel incontinence; discontinue stool softeners HUI CAM DO 06/09/22 0510: Supervisory-Addendum Brief Verification & Attestation Participated in pt care: history, MDM, physical Personally performed: exam, history, MDM, supervision of care Care discussed with: Medical Student Procedures: n/a Results interpretation: Verified all documentation Verification and Attestation of Medical Student E/M Service A medical student performed and documented this service in my presence. I reviewed and verified all information documented by the medical student and made modifications to such information, when appropriate. I personally performed the physical exam and medical decision making. Hui Cam, Jun 09, 2022,05:09 ASTRID OATES Jun 08, 2022 12:26 HUI CAM DO Jun 09, 2022 05:10
== END 2022-06-08 14:35 | disposition home health service (06) | DRG 92 ==
PROVIDERS: ADMIT Internal Medicine; ATTEND Internal Medicine
DX: G72.89 Other specified myopathies (principal); I50.32 Chronic diastolic (congestive) heart failure; Z68.42 Body mass index [BMI] 45.0-49.9, adult; N39.0 Urinary tract infection, site not specified; I11.0 Hypertensive heart disease with heart failure; E66.01 Morbid (severe) obesity due to excess calories; K91.0 Vomiting following gastrointestinal surgery; R19.7 Diarrhea, unspecified; E78.00 Pure hypercholesterolemia, unspecified; K21.9 Gastro-esophageal reflux disease without esophagitis; E03.9 Hypothyroidism, unspecified; M19.91 Primary osteoarthritis, unspecified site; H40.9 Unspecified glaucoma; I27.20 Pulmonary hypertension, unspecified; Z48.815 Encounter for surgical aftercare following surgery on the digestive system; G60.9 Hereditary and idiopathic neuropathy, unspecified; F31.9 Bipolar disorder, unspecified; F41.9 Anxiety disorder, unspecified; B35.1 Tinea unguium; F90.9 Attention-deficit hyperactivity disorder, unspecified type; Z85.42 Personal history of malignant neoplasm of other parts of uterus; Z79.82 Long term (current) use of aspirin; Z82.61 Family history of arthritis; Z82.1 Family history of blindness and visual loss; Z83.49 Family history of other endocrine, nutritional and metabolic diseases; Z99.3 Dependence on wheelchair; Z99.81 Dependence on supplemental oxygen; Z96.652 Presence of left artificial knee joint; Z91.81 History of falling
CPT/HCPCS: 36415; 80053; 81000; 85025; 94640; 94760; 94761

== ENCOUNTER → 2022-07-09 | Outpatient (CLI) | payer MEDICARE, OTHER ==
[~2022-07-09] MED LIST changes: +CHOL4PAC3 PO; +NITR100C10 PO; +ONDA4TAB11 PO; +SCOP1PAT10 TD; +UMEC62.5 IH
--- NOTE | 2022-07-09 17:06 | Diagnostic Imaging Report ---
EXAMINATION: Abdomen, one view. HISTORY: Renal calculi. COMPARISON: None available. FINDINGS: There is a moderate amount of gas and stool throughout the colon. Nonobstructive bowel gas pattern. There are right renal calculi measuring up to 0.8 cm. Right upper quadrant cholecystectomy clips are present. Degenerative changes of the hips and spine. Osseous structures are otherwise intact. IMPRESSION: Moderate stool burden without other acute abnormality in the abdomen. Right renal calculi measuring up to 0.8 cm. Dictated by: Dictated on workstation # [id number]
== END ==
LOC: RAD FS 13:25
PROVIDERS: ATTEND Urology
DX: N20.0 Calculus of kidney (principal)
CPT/HCPCS: 74018

== ENCOUNTER → 2022-09-16 | Outpatient (CLI) | payer MEDICARE, OTHER ==
[~2022-09-16] MED LIST changes: +RT-ALBUTEROL SULF 2.5 MG/3 ML PRE-MIX VIAL INH ONE
[2022-09-16 10:44] LABS: ABG BASE EXCESS 3.8 MMOL/L (-2.5-2.5); ABG OXYGEN SATURATION 98 % (94-100); ABG PCO2 47 MMHG (35-45); ABG PO2 75 MMHG (79-93); ABG TCO2 29.8 MMOL/L (21.0-31.0)
[2022-09-16 10:45] LABS: ALLENS TEST P
[2022-09-16 10:46] LABS: INSPIRED O2 ROOM AIR; PATIENT TEMP 98.2; VENTILATOR NO
== END ==
LOC: RT 10:45
PROVIDERS: ATTEND Internal Medicine Critical Care Medicine
DX: J44.9 Chronic obstructive pulmonary disease, unspecified (principal)
CPT/HCPCS: 36600; 82805; 94060; 94729

== ENCOUNTER → 2022-09-23 | Outpatient (CLI) | payer MEDICARE, OTHER ==
[~2022-09-23] MED LIST changes: -RT-ALBUTEROL SULF 2.5 MG/3 ML PRE-MIX VIAL INH ONE
--- NOTE | 2022-09-23 12:45 | Diagnostic Imaging Report ---
EXAMINATION: Right knee radiographs, 4 views. COMPARISON: None. HISTORY: 67-year-old female, chronic right knee pain. FINDINGS: The proximal tibia is laterally subluxed relative to the distal femur and also is anteriorly translated. There is severe tricompartmental joint space loss with osteophyte formation. There is bone irregularity and remodeling of the distal femur and proximal tibia. There is a well-corticated ossification adjacent to the medial aspect of the proximal tibia which is consistent with a chronic long-standing etiology and could relate to prior bone fragmentation or other remote prior injury. There are also areas of ossification posteriorly which appear likely benign. The bones do appear to be demineralized. IMPRESSION: 1. The proximal tibia is laterally subluxed and anteriorly translated relative to the distal femur. This likely reflects instability. 2. 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 Dictated by: Dictated on workstation # [id number]
== END ==
LOC: ORTHO 10:12
PROVIDERS: ATTEND Orthopaedic Surgery
DX: M13.861 Other specified arthritis, right knee (principal)
CPT/HCPCS: 73564; G0463; 99213

== ENCOUNTER 2023-03-24 19:31 | Outpatient (CLI) | payer MEDICARE, OTHER ==
[~2023-03-24 19:31] MED LIST changes: +DORZ10DR36 OU; -DORZ10DR8 OU
[2023-03-25 10:34] LABS: AMPHETAMINE SCREEN, URINE NEGATIVE (NEGATIVE); BARBITURATE SCREEN URINE NEGATIVE (NEGATIVE); BENZODIAZEPINES SCREEN URINE POSITIVE (NEGATIVE); CANNABINOID SCREEN, URINE NEGATIVE (NEGATIVE); COCAINE SCREEN URINE NEGATIVE (NEGATIVE); METHADONE STAT NEGATIVE (NEGATIVE); OPIATE SCREEN URINE NEGATIVE (NEGATIVE); OXYCODONE STAT NEGATIVE (NEGATIVE); PROPOXYPHENE STAT NEGATIVE (NEGATIVE); TRICYCLIC ANTIDEPRESSANTS SCRE NEGATIVE (NEGATIVE)
== END 2023-03-25 15:45 ==
LOC: SLEEP 19:31
PROVIDERS: ATTEND Internal Medicine Critical Care Medicine
DX: G47.33 Obstructive sleep apnea (adult) (pediatric) (principal)
CPT/HCPCS: 36415; 80306; 95805; 95810

== ENCOUNTER → 2023-04-06 | Outpatient (CLI) | payer MEDICARE, OTHER ==
--- NOTE | 2023-04-06 17:54 | Diagnostic Imaging Report ---
ABDOMEN (KUB) 1 VIEW INDICATION: Calculus of kidney COMPARISON: 07/09/2022 TECHNIQUE: Supine AP view of the abdomen FINDINGS: There remain 2 adjacent stones in the region of the right renal fossa that is stable in appearance. The larger of the two again measures approximately 0.7 cm. No additional calcifications have developed overlying the renal fossa on either side. Left-sided pelvic phleboliths are stable. A moderate amount of colonic stool is noted. Nonobstructive bowel gas pattern. Cholecystectomy clips are seen. IMPRESSION: No change in the 2 right-sided calcifications that are most likely renal stones. Dictated by: Dictated on workstation # [id number]
== END ==
LOC: RAD FS 10:51
PROVIDERS: ATTEND Urology
DX: N20.0 Calculus of kidney (principal)
CPT/HCPCS: 74018

== ENCOUNTER 2023-05-27 15:40 | Emergency (ER) | payer MEDICARE, OTHER ==
[2023-05-27] MEDS ORDERED: cefTRIAXone IV/IM 1,000 MG in NS (IVPB) 50 ML 50 ML IV ONE (16:00)
--- NOTE | 2023-05-27 16:03 | ED Cough/URI ---
General Chief Complaint: Respiratory Problems Stated Complaint: SOA Nursing Triage Note: PT ARRIVED PER EMS, PT CO OF SOA PT HAS HX OF COPD AND WEARS O2 AT 2L PER N/C AT NIGHT. RM O2 83%. PT ALSO HAS RED, SWOLLEN AND WEEPING OF R LOWER EXT. STATES HAS HAD FOR A FEW DAYS. PT STATES HAS BEEN ON ZITHROMAX FOR 90DAYS D/T COUGH W GREEN SPUTUM. PT CARE RN SENT TO ED Source: patient, EMS History of Present Illness Date Seen by Provider: May 27, 2023 Time Seen by Provider: 15:58 Initial Comments Very pleasant alert and oriented nondistressed 68-year-old female presents to the emergency department via EMS for reported shortness of breath. However patient states that she is not short of breath she was originally low on room air sats in the low 80s she states she does wear oxygen but only at night. She states she has been on azithromycin for 90 days for cough, states that it has not changed her cough and unaware of indication for 90 days of azithromycin but she seems to be tolerating it well. She states her home health was at her home giving her a bath yesterday and did not notice any change in her lower extremities however today she is swollen on her right calf some erythema some warmth and weeping clear fluid. It is not circumferential it does not go onto the posterior aspect of the leg it is primarily on the lateral aspect she is neurovascular intact. Denies any significant pain in the area. She is concerned for her persistent cough. Timing/Duration: constant Severity/Quality: productive cough, sputum Prior Episodes/Possible Cause: unknown cause Modifying Factors: Improves With Coughing, Improves With Oxygen Associated Symptoms: cough, other (Weeping cellulitis right lower extremity) Allergies and Home Medications Allergies Uncoded Allergies: MERCURY (Allergy, Mild, unknown, 05/24/22) Patient Home Medication List Home Medication List Reviewed: Yes Albuterol Sulfate (Ventolin Hfa) 90 Mcg Hfa.aer.ad, 2 PUFF INH Q6H PRN for SHORTNESS OF BREATH, (Reported) Entered as Reported by: MINOO YOU on 05/03/22 1150 Albuterol Sulfate (Albuterol Sulfate) 2.5 Mg/3 Ml (0.083 %) Vial.neb, 2.5 MG INH Q6H PRN for WHEEZING Prescribed by: Devon Ram on 05/27/23 7839 Alprazolam (Alprazolam) 0.5 Mg Tablet, 1 MG PO BID, (Reported) Entered as Reported by: MINOO YOU on 05/03/22 115 Amlodipine Besylate (Amlodipine Besylate) 10 Mg Tablet, 10 MG PO DAILY, (Reported) Entered as Reported by: MINOO YOU on 05/03/22 115 Asenapine Maleate (Saphris) 10 Mg Tab.subl, 20 MG SL HS, (Reported) Entered as Reported by: MINOO YOU on 05/03/22 115 Aspirin (Aspirin EC) 81 Mg Tablet.dr, 81 MG PO DAILY, (Reported) Entered as Reported by: MINOO YOU on 05/03/221158 Budesonide/Glycopyr/Formoterol (Breztri Aerosphere Inhaler) 160 Mcg-9 Mcg-4.8 Mcg/Actuation Hfa.aer.ad, 2 PUFF INH BID, (Reported) Entered as Reported by: MINOO YOU on 05/03/221158 Calcium Carbonate/Vitamin D3 (Calcium 600 + Vit D Tablet) 600 Mg Calcium-10 Mcg (400 Unit) Tablet, 1 EACH PO DAILY, (Reported) Entered as Reported by: MINOO YOU on 05/03/221158 Cephalexin (Cephalexin) 500 Mg Capsule, 500 MG PO Q6H Prescribed by: Devon Ram on 05/27/231712 Cholestyramine/Aspartame (Prevalite Packet) 4 Gram Powd.pack, 4 GM PO ACHS Prescribed by: JENNIE CAM on 06/08/22 0553 Citalopram Hydrobromide (Citalopram HBr) 40 Mg Tablet, 40 MG PO DAILY, (Reported) Entered as Reported by: MINOO YOU on 05/03/22 115 Cyclosporine (Restasis) 0.05 % Droperette, 1 DROP OU BID, (Reported) Entered as Reported by: MINOO YOU on 05/03/22 115 Diphenhydramine HCl (Benadryl) 25 Mg Capsule, 50 MG PO BID PRN for ALLERGY SYMPTOMS, (Reported) Entered as Reported by: MINOO YOU on 05/03/22 115 Dorzolamide HCl/Timolol Maleat (Dorzolamide-Timolol Eye Drops) 22.3 Mg-6.8 Mg/Ml Drops, 1 DROP OU BID, (Reported) Entered as Reported by: MINOO YOU on 05/03/22 1159 Esomeprazole Magnesium (Nexium) 40 Mg Cap, 40 MG PO BID, (Reported) Entered as Reported by: KELSEY GRIFFITH on 05/02/22 1455 Hydrocodone/Acetaminophen (Hydrocodone-Acetamin 7.5-325) 7.5 Mg-325 Mg Tablet, 1 EACH PO Q4H PRN for PAIN-BREAKTHROUGH Prescribed by: JENNIE CAM on 06/08/22 0554 Lamotrigine (Lamotrigine) 200 Mg Tablet, 400 MG PO HS, (Reported) Entered as Reported by: MINOO YOU on 05/03/22 115 Latanoprostene Bunod (Vyzulta) 0.024 % Drops, 1 DROP OU HS, (Reported) Entered as Reported by: MINOO YOU on 05/03/22 1159 Mv-Mn/Om3/Dha/Epa/Fish/Lut/Adolfo (Ocuvite Adult 50 Plus Softgel) 250 Mg (90 Mg-160 Mg)-5 Mg-1 Mg Capsule, 1 EACH PO HS, (Reported) Entered as Reported by: MINOO YOU on 05/03/22 115 Nitrofurantoin Monohyd/M-Cryst (Nitrofurantoin Hayes-Mcr 100 mg) 100 Mg Capsule, 100 MG PO BID Prescribed by: JENNIE CAM on 06/08/22 0553 Omeprazole (Omeprazole) 40 Mg Capsule.dr, 40 MG PO UD, (Reported) Entered as Reported by: GALINDO SHEPHERD on 05/24/22 1515 Ondansetron (Ondansetron Odt) 4 Mg Tab.rapdis, 4 MG PO Q6H PRN for NAUSEA/VOMITING-1ST LINE Prescribed by: JENNIE CAM on 06/08/22 0553 Oxcarbazepine (Oxcarbazepine) 300 Mg Tablet, 600 MG PO HS, (Reported) Entered as Reported by: MINOO YOU on 05/03/22 1159 Oxybutynin Chloride (Oxybutynin Chloride) 5 Mg Tablet, 10 MG PO HS, (Reported) Entered as Reported by: MINOO YOU on 05/03/221158 Prednisone (Prednisone) 20 Mg Tab, 40 MG PO DAILY Prescribed by: Devon Ram on 05/27/23 1713 Propylene Glycol/Peg 400 (Systane Ultra 0.4-0.3% Eye Drp) 0.3 %-0.4 % Drops, 1 DROP OU UD PRN for DRY EYES, (Reported) Entered as Reported by: MINOO YOU on 05/03/221158 Pumpkin Seed Extract/Soy Germ (Azo Bladder Control Capsule) 300 Mg Capsule, 2 EA PO BID, (Reported) Entered as Reported by: MINOO YOU on 05/03/221158 Scopolamine (Transderm-Scop) 1 Mg/3 Day Patch.td72, 1.5 MG TD Q72H Prescribed by: JENNIE CAM on 06/08/22552 Terbinafine HCl (Terbinafine) 1 % Cream..g., 1 APPLIC TOP DAILY, (Reported) Entered as Reported by: MINOO YOU on 05/03/221158 Umeclidinium [place] (Incruse Ellipta) 62.5 Mcg/Actuation Blst.w.dev, 0 INH IH DAILY@0800 Prescribed by: JENNIE CAM on 06/08/22552 [Cranberry Con W/Vitc] 30,000 CAP, 1 EA PO DAILY, (Reported) Entered as Reported by: MINOO YOU on 05/03/221158 [Probiotic] 200 BILLION CAP, 1 EA PO DAILY, (Reported) Entered as Reported by: MINOO YOU on 05/03/221158 [T-3] , 90 MCG PO DAILY, (Reported) Entered as Reported by: MINOO YOU on 05/03/221158 [Ultimate Iron] , 1 EA PO DAILY, (Reported) Entered as Reported by: KELSEY GRIFFITH on 05/02/22 8784 Review of Systems Review of Systems Constitutional: no symptoms reported, see HPI EENTM: no symptoms reported Respiratory: see HPI, cough, phlegm Cardiovascular: no symptoms reported Gastrointestinal: no symptoms reported Genitourinary: no symptoms reported : No Musculoskeletal: see HPI Skin: see HPI, change in color, rash Psychiatric/Neurological: No Symptoms Reported Hematologic/Lymphatic: No Symptoms Reported Immunological/Allergic: no symptoms reported All Other Systems Reviewed Negative Unless Noted: Yes Past Aitzifo-Gmnnwi-Sfvuur Hx Patient Social History Tobacco Use?: No Substance use?: No Alcohol Use?: No Pt feels they are or have been: No Immunizations Up To Date Tetanus Booster (TDap): Unknown First/Initial COVID19 Vaccinat: SEP 2020 Second COVID19 Vaccination Felipe: OCTOBER 2020 Third COVID19 Vaccination Date: 2020 Seasonal Allergies Seasonal Allergies: Yes Past Medical History Surgery/Hospitalization HX: CHOLY & HERNIA REPAIR (RECENT) HYSTERECTOMY, LEFT TKR.COPD, BIPOLAR ANXIETY DEPRESSION, T AND A Surgeries: Yes (NECK- RUSSELL REMOVAL, PRECANCEROUS CELLS REMOVED PELVIC AREA LTKR ) Hysterectomy, Orthopedic Respiratory: Yes Pneumonia, COPD Currently Using CPAP: No Currently Using BIPAP: No Cardiac: Yes High Cholesterol, Hypertension Neurological: No Reproductive Disorders: 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 Sexually Transmitted Disease: No Bladder Infection, Kidney Stones, UTI-Chronic Gastrointestinal: Yes Gastroesophageal Reflux, Hemorrhoids, Chronic Diarrhea Musculoskeletal: Yes (NARROWING OF L3-L5, OSTEOARTHRITIS) Arthritis, Chronic Back Pain Endocrine: Yes Hypothyroidsim HEENT: Yes Glaucoma Cancer: Yes Uterine What Type of Treatment Did You: Surgical Intervention Psychosocial: Yes ADD/ADHD, Anxiety, Bipolar, Depression Integumentary: No Blood Disorders: No Adverse Reaction/Blood Tranf: No Family Medical History Alcoholism 03 FATHER, Age:97 03 MOTHER, , Age:60 years and older 09 BROTHER, Age:72 09 BROTHER, , Age:40's - 50 09 BROTHER, Age:67 09 BROTHER, Age:63 09 SISTER, Age:60 Cancer 03 MOTHER, , Age:60 years and older 09 BROTHER, , Age:40's - 50 Cataract 03 FATHER, Age:97 Family history: Arthritis 09 SISTER, Age:60 Family history: Gastrointestinal disease 09 BROTHER, Age:63 Family history: Thyroid disorder 09 SISTER, Age:60 Headache 03 FATHER, Age:97 03 MOTHER, , Age:60 years and older 09 BROTHER, Age:72 09 BROTHER, , Age:40's - 50 09 BROTHER, Age:67 09 BROTHER, Age:63 09 SISTER, Age:60 History of drug abuse Visual impairment No Family History of: Abdominal aortic aneurysm Tejinder's disease Aphasia Cancer of colon Chest pain Congenital heart disease Congestive heart failure Cystic fibrosis Dementia Dysphagia Family history: Allergy Family history: Alzheimer's disease Family history: Asthma Family history: Breast disease Family history: Cardiovascular disease Family history: Coronary thrombosis Family history: Diabetes mellitus Family history: Glaucoma Family history: Hypertension Family history: Osteoporosis Hearing loss Heart disease Hereditary disease History of - anemia History of - respiratory disease Human immunodeficiency virus (HIV) seropositivity Hypercholesterolemia Infertile Kidney disease Malignant neoplasm of lung Myocardial infarction Parkinson's disease Prostate cancer Psychotic disorder Seizure disorder Stroke Tuberculosis Physical Exam Vital Signs - First Documented 05/27/23 15:40 Pulse 61 Resp 18 B/P (MAP) 164/72 (102) Pulse Ox 93 O2 Delivery Nasal Cannula O2 Flow Rate 2.00 Capillary Refill : Height: 5'6.00" Weight: 254lbs. 0oz. 115.232648qq; 47.88 BMI Method:Stated General Appearance: WD/WN, no apparent distress Eyes: Bilateral Eye Normal Inspection, Bilateral Eye PERRL, Bilateral Eye EOMI HEENT: PERRL/EOMI Neck: non-tender, full range of motion Respiratory: chest non-tender, lungs clear, normal breath sounds, no respiratory distress, no accessory muscle use Cardiovascular: regular rate, rhythm Gastrointestinal: non tender, soft Extremities: inflammation, swelling (Right lower extremity with weeping and cellulitis and warmth primarily to the anterior lateral aspect of the leg. It does not go past the knee or the ankle it is not circumferential) Neurologic/Psychiatric: no motor/sensory deficits, alert, normal mood/affect Skin: other (See above) Progress/Results/Core Measures Suspected Sepsis SIRS Temperature: Pulse: 61 Respiratory Rate: 18 Laboratory Tests 05/27/23 15:45: White Blood Count 8.4 Blood Pressure 164 /72 Mean: 102 Laboratory Tests 05/27/23 15:45: Creatinine 0.72, Platelet Count 247, Total Bilirubin 0.4 Results/Orders Lab Results Laboratory Tests Test 05/27/23 15:45 Range/Units White Blood Count 8.4 4.3-11.0 10^3/uL Red Blood Count 4.18 3.80-5.11 10^6/uL Hemoglobin 12.4 11.5-16.0 g/dL Hematocrit 39 35-52 % Mean Corpuscular Volume 93 80-99 fL Mean Corpuscular Hemoglobin 30 25-34 pg Mean Corpuscular Hemoglobin Concent 32 32-36 g/dL Red Cell Distribution Width 14.4 10.0-14.5 % Platelet Count 247 130-400 10^3/uL Mean Platelet Volume 9.4 9.0-12.2 fL Immature Granulocyte % (Auto) 0 % Neutrophils (%) (Auto) 78 H 42-75 % Lymphocytes (%) (Auto) 11 L 12-44 % Monocytes (%) (Auto) 7 0-12 % Eosinophils (%) (Auto) 3 0-10 % Basophils (%) (Auto) 0 0-10 % Neutrophils # (Auto) 6.6 1.8-7.8 10^3/uL Lymphocytes # (Auto) 1.0 1.0-4.0 10^3/uL Monocytes # (Auto) 0.6 0.0-1.0 10^3/uL Eosinophils # (Auto) 0.2 0.0-0.3 10^3/uL Basophils # (Auto) 0.0 0.0-0.1 10^3/uL Immature Granulocyte # (Auto) 0.0 0.0-0.1 10^3/uL Sodium Level 132 L 135-145 MMOL/L Potassium Level 4.1 3.6-5.0 MMOL/L Chloride Level 98 98-107 MMOL/L Carbon Dioxide Level 26 21-32 MMOL/L Anion Gap 8 5-14 MMOL/L Blood Urea Nitrogen 9 7-18 MG/DL Creatinine 0.72 0.60-1.30 MG/DL Estimat Glomerular Filtration Rate 90 BUN/Creatinine Ratio 13 Glucose Level 95 70-105 MG/DL Calcium Level 9.2 8.5-10.1 MG/DL Corrected Calcium 9.0 8.5-10.1 MG/DL Total Bilirubin 0.4 0.1-1.0 MG/DL Aspartate Amino Transf (AST/SGOT) 21 5-34 U/L Alanine Aminotransferase (ALT/SGPT) 19 0-55 U/L Alkaline Phosphatase 98 40-136 U/L Total Protein 7.3 6.4-8.2 GM/DL Albumin 4.2 3.2-4.5 GM/DL My Orders Orders - DEVON RAM W DO Us Venous Lower Ext Rt (05/27/23 15:55) Chest Pa/Lat (2 View) (05/27/23 15:55) Cbc And Automated Diff (05/27/23 15:55) Comprehensive Metabolic Panel (05/27/23 15:55) Svn Small Volume Nebulizer (05/27/23 15:55) Ceftriaxone Iv/Im (Ceftriaxone Iv/Im) (05/27/23 16:00) Medications Given in ED Current Medications Medications Dose Ordered Sig/Brad Route Start Time Stop Time Status Last Admin Dose Admin Ceftriaxone Sodium 1000 mg/ Sodium Chloride 50 ml @ 100 mls/hr ONCE ONCE IV 05/27/23 16:00 05/27/23 16:29 DC 05/27/23 16:29 100 MLS/HR Vital Signs/I&O 05/27/23 05/27/23 15:40 17:28 Pulse 61 88 Resp 18 18 B/P (MAP) 164/72 (102) 158/71 Pulse Ox 93 94 O2 Delivery Nasal Cannula O2 Flow Rate 2.00 Capillary Refill : Blood Pressure Mean: 102 Progress Note : Progress Note Patient is in no distress. She was placed on 2 L of oxygen via nasal cannula and her oxygen saturations are in the mid 90s. She is not coughing currently. She denies any pain in the lower extremity. She wiggles her toes sensation is intact. No weakness. No nausea vomiting or fever. She states her leg is itchy currently. Will obtain chest x-ray, ultrasound of the lower extremity as well as CBC and chemistry as she has been on a macrolide for roughly 3 months without change. We will also provide breathing treatment. Patient agrees. She is in no distress whatsoever she is on her phone she is answering questions appropriately she is quite pleasant. Diagnostic Imaging Diagonstic Imaging: Xray, Ultrasound Plain Films/CT/US/NM/MRI: chest (Chronic interstitial markings, could be interstitial lung disease versus pneumonitis.), leg (Known DVT of the right lower extremity) Reviewed: Reviewed Night [facility] Study Departure Impression Primary Impression: Cellulitis of right anterior lower leg Additional Impression: Interstitial lung disease Disposition: 01 HOME, SELF-CARE Condition: Improved Departure-Patient Inst. Referrals: BAILEY HEAD MD (PCP/Family) Primary Care Physician Patient Instructions: Interstitial lung disease, Cellulitis (Skin Infection), Adult ED, Chronic Bronchitis (DC) Add. Discharge Instructions: Stop taking azithromycin. We will provide stronger antibiotic to cover both chronic lung disease as well as cellulitis. Use nebulizer as directed. We will provide a brief course of steroids as well for chronic inflammation. Use oxygen as needed. Follow-up with primary care this week All discharge instructions reviewed with patient and/or family. Voiced understanding. Scripts Cephalexin (Cephalexin) 500 Mg Capsule 500 MG PO Q6H for 10 Days, #40 CAP 0 Refills Prov: DEVON RAM DO 05/27/23 Prednisone (Prednisone) 20 Mg Tab 40 MG PO DAILY, #6 TAB 0 Refills Prov: DEVON RAM DO 05/27/23 Albuterol Sulfate (Albuterol Sulfate) 2.5 Mg/3 Ml (0.083 %) Vial.neb 2.5 MG INH Q6H PRN for WHEEZING, #50 EA 1 Refill Prov: DEVON RAM DO 05/27/23 DEVON RAM DO May 27, 2023 16:03
[2023-05-27 16:05] LABS: BASOPHILS % (AUTO) 0 % (0-10); EOSINOPHILS # (AUTO) 0.2 10^3/uL (0.0-0.3); EOSINOPHILS % (AUTO) 3 % (0-10); HEMATOCRIT 39 % (35-52); HEMOGLOBIN 12.4 g/dL (11.5-16.0); LYMPHOCYTES % (AUTO) 11 % (12-44); MEAN CORPUSCULAR HEMOGLOBIN 30 pg (25-34); MEAN CORPUSCULAR HGB CONC 32 g/dL (32-36); MEAN CORPUSCULAR VOLUME 93 fL (80-99); MEAN PLATELET VOLUME 9.4 fL (9.0-12.2); MONOCYTES # (AUTO) 0.6 10^3/uL (0.0-1.0); MONOCYTES % (AUTO) 7 % (0-12); NEUTROPHILS # (AUTO) 6.6 10^3/uL (1.8-7.8); NEUTROPHILS % (AUTO) 78 % (42-75); PLATELET COUNT 247 10^3/uL (130-400); WHITE BLOOD COUNT 8.4 10^3/uL (4.3-11.0)
[2023-05-27 16:08] LABS: ALBUMIN 4.2 GM/DL (3.2-4.5); POTASSIUM 4.1 MMOL/L (3.6-5.0)
[2023-05-27 16:09] LABS: CALCIUM 9.2 MG/DL (8.5-10.1)
[2023-05-27 16:11] LABS: TOTAL PROTEIN 7.3 GM/DL (6.4-8.2)
[2023-05-27 16:12] LABS: BILIRUBIN,TOTAL 0.4 MG/DL (0.1-1.0)
[2023-05-27 16:14] LABS: CREATININE SERUM 0.72 MG/DL (0.60-1.30)
--- NOTE | 2023-05-27 16:39 | Diagnostic Imaging Report ---
EXAMINATION: US Right Lower Extremity Venous Duplex. TECHNIQUE: Multiple real-time grayscale images were obtained over the right lower extremity in various projections. Additional spectral analysis and color Doppler duplex images were also obtained. HISTORY: Right lower extremity pain and edema. COMPARISON: 06/23/2018. FINDINGS: The right common femoral vein, deep femoral vein, superficial femoral vein and popliteal vein are patent with normal gomes scale and doppler appearance. There is normal respiratory variation and augmentation. The visualized calf vessels are patent. IMPRESSION: 1. No DVT of the right lower extremity. Dictated by: Dictated on workstation # [id number]
--- NOTE | 2023-05-27 16:53 | Diagnostic Imaging Report ---
EXAMINATION: CHEST (PA AND LATERAL) CLINICAL INDICATION: 68-year-old female, shortness of breath. COMPARISON: November 30, 2018. FINDINGS: Heart size and mediastinal contours are unchanged. There is no identified pneumothorax. There is no large pleural effusion. There are bilateral interstitial opacities. IMPRESSION: 1. Bilateral interstitial opacities. Differential considerations would include interstitial edema, atypical infection, and/or pneumonitis. Dictated by: Dictated on workstation # [id number]
[2023-05-27] MEDS ORDERED: PRD20T PO (17:13)
[2023-05-27] MEDS ORDERED: ALBU2.5V4 INH (17:13)
[2023-05-27] MEDS ORDERED: CEPH500C PO (17:13)
[2023-05-27 17:28] VITALS: BP 158/71
== END 2023-05-27 18:37 | disposition home or self-care (01) ==
LOC: ER 15:40 → EDUNIT# 15:40 → ER 18:37
DX: J84.9 Interstitial pulmonary disease, unspecified (principal); L03.115 Cellulitis of right lower limb; J44.9 Chronic obstructive pulmonary disease, unspecified; Z99.81 Dependence on supplemental oxygen
CPT/HCPCS: 36415; 71046; 80053; 85025; 96365